=== PATIENT | female | born 1965 | race Caucasian/White ===

== ENCOUNTER → 2019-12-12 11:22 | Outpatient (CLI) | payer SELFPAY | PROVIDERS: Referring Provider Family Medicine; Visit Provider Family Medicine | DX: Z20.828 Contact with and (suspected) exposure to other viral communicable diseases (principal) | CPT/HCPCS: 87635; U0003 ==

== ENCOUNTER 2022-05-06 11:49 | Emergency (ER) | payer OTHER, SELFPAY ==
[2022-05-06 11:51] VITALS: BP 122/82; PULSE 104; RESP 18; TEMP 36.6; O2SAT 98
[2022-05-06 11:52] VITALS: BMI 32.3
[2022-05-06 12:29] VITALS: O2SAT 97
--- NOTE | 2022-05-06 12:29 | CT_ITS ---
STUDY: CTA CHEST REASON FOR EXAM: Female, 56 years old. Diffuse pleuritic CP, cancer RADIATION DOSAGE (If Supplied By Facility): CTDIvol = ( 9.33 ) mGy, DLP = ( 330.92 ) mGycm TECHNIQUE: The examination was performed with the intravenous administration of IV 100mL Isovue-370. Post-processing of the angiographic images was performed, with multiplanar reformation and 3D reconstruction. Individualized dose optimization techniques were used for this CT. COMPARISON: None. FINDINGS: Small benign-appearing bilateral axillary lymph nodes. Mildly diffusely enlarged left lobe of the thyroid gland with a hypodense nodule most likely representing goitrous enlargement. Level Normal enhancement of the main pulmonary artery and right and left pulmonary arteries. Normal enhancement of the bilateral peripheral pulmonary arteries. There is no demonstrated pulmonary embolism. There is atherosclerotic calcification of the aortic arch with tortuosity. There is no demonstrated aortic dissection. There are calcifications of the coronary arteries. Normal mediastinum. Normal hilar regions. Normal visualized trachea and bronchi. The lungs are well expanded. Mild degree of increased markings at the lung bases suggestive of mild bibasilar scarring . Normal pleura. Normal chest wall structures. There are degenerative changes of thoracic spine. There is a 2.8 cm x 2.4 cm mass in the left adrenal gland. CT/CTA Chest W/WO Contrast IMPRESSION: Mild degree of bibasilar scarring. 2.8 cm x 2.4 cm mass in the left adrenal gland. Electronically Signed: Piotr Sexton MD at 14:36 EST ,
--- NOTE | 2022-05-06 12:29 | EKG12_ITS ---
Test Reason : CP Blood Pressure : / mmHG Vent. Rate : 094 BPM Atrial Rate : 094 BPM P-R Int : 182 ms QRS Dur : 076 ms QT Int : 318 ms P-R-T Axes : 060 022 047 degrees QTc Int : 397 ms Normal sinus rhythm with sinus arrhythmia Normal ECG Confirmed by MATHIEU CONWAY, ALO ([id number]), scientific editor BINDU KRUGER ([id number]) on 05/08/2022 9:43:59 AM Referred By: ADELITA/MIRELA Confirmed By:ALO MURDOCK MD
--- NOTE | 2022-05-06 12:32 | EDS_ITS ---
HPI History of Present Illness Chief Complaint: Chest Pain Informant: patient and spouse/S.O. Onset/Context/Timing Onset: Today (0200, 10 hrs ago) Activity at onset: activity on onset and sleep Timing: Continuous Quality: Positive for Pain (sore) Location: - (Throughout ribs, front and back) Current Severity: Moderate Maximum Severity: Severe Worsened By: Movement of Arm, Movement of Torso and Breathing Relieved By: Rest and Remaining Still Associated Symptoms: Positive for Nausea and Dyspnea (A little because it hurts to breathe and is very painful when she moves); Negative for Vomiting, Cough, Fever, Lightheadedness or Palpitations Narrative Narrative: Patient recently had breast cancer that was localized, she had a lumpectomy, she is in a study and was just given her first infusion of Zometa yesterday afternoon. She woke up this morning and pain all over but mostly in the ribs, front and back. It hurts to breathe, this is making her feel little short of breath. Patient has never had a DVT or PE before, she has no pain or swelling in either one of her legs right now unilaterally or asymmetrically, and is not anticoagulated for any reason. I did speak with her oncologist Dr. Zavaleta concerning all of this who is an additional independent historian. [facility] Medical History (Updated 05/06/22 @ 14:[address] Bandar Flanagan MD) Breast cancer Home Medications omeprazole 20 mg tablet,delayed release 20 mg PO DAILY ##14 03/11/16 [Rx Last Taken Unknown] ondansetron 4 mg disintegrating tablet 4 - 8 mg PO Q8H PRN PRN Nausea #12 tabs 03/11/16 [Rx Last Taken Unknown] bupropion HCl 150 mg tablet,12 hr sustained-release 150 mg PO BID 05/06/22 [History Last Taken Unknown] cyclobenzaprine 10 mg tablet 10 mg PO TID PRN Spasms 05/06/22 [History Last Taken Unknown] exemestane 25 mg tablet (Aromasin) 25 mg PO DAILY 05/06/22 [History Last Taken Unknown] fluticasone propionate 50 mcg/actuation nasal spray,suspension 2 spray intranasal DAILY 05/06/22 [History Last Taken Unknown] meloxicam 15 mg tablet 15 mg PO DAILY 05/06/22 [History Last Taken Unknown] oxycodone-acetaminophen 5 mg-325 mg tablet 1 tab PO Q6H PRN PRN Pain 4 days #16 TABLETS 05/06/22 [Rx Last Taken Unknown] Allergy/AdvReac Type Severity Reaction Status Date / Time No Known Allergies Allergy Verified 05/06/22 11:52 Social History Smoking Status: Former smoker ROS ROS ED Constitutional Constitutional ED: Denies chills or fever(s) Eyes Eyes: Denies change in vision or diplopia ENT ENT ED: Denies rhinorrhea or sore throat Cardiovascular Cardiovascular: Reports as per HPI and chest pain; Denies palpitations Respiratory/Chest Respiratory/Chest: Reports as per HPI and dyspnea; Denies cough Gastrointestinal Gastrointestinal: Reports nausea; Denies abdominal pain, diarrhea or vomiting Genitourinary Genitourinary ED: Denies dysuria or hematuria Musculoskeletal Musculoskeletal: Reports back pain and extremity pain; Denies neck pain Integumentary Denies abscess or rash Neurologic Neurologic: Denies headache(s), paresthesias or weakness Psychiatric Psychiatric: Denies anxiety or suicidal thoughts EXAM Physical Exam Const Vital Signs: 05/06/22 11:51 05/06/22 12:18 05/06/22 12:29 Temperature 97.8 F Temperature Source Temporal Pulse Rate 104 H Respiratory Rate 18 Respiratory Effort Normal Non-Labored Respiratory Pattern Normal Blood Pressure 122/82 H Blood Pressure Mean 95 Pulse Ox 98 97 Oxygen Delivery Method Room Air Room Air 05/06/22 13:00 05/06/22 14:00 Temperature Temperature Source Pulse Rate 101 H 99 Respiratory Rate 20 H 18 Respiratory Effort Respiratory Pattern Blood Pressure 112/76 116/74 Blood Pressure Mean 88 88 Pulse Ox 98 100 Oxygen Delivery Method Room Air Room Air Positive well nourished and well developed General Appearance ED: well developed and NAD HEENT Reports moist mucous membranes normocephalic and atraumatic Eyes PERRL and EOMs intact bilaterally Neck full ROM and supple Chest Wall inspection of chest normal Chest Narrative: Diffuse chest wall tenderness all the way around her trunk without any crepitance, step-off, or unequal breath sounds. Patient is in more pain to move. Resp normal respiratory effort and clear to auscultation bilaterally Cardio regular rate, regular rhythm and no murmurs Rate: other Other Details: Mild tachycardia GI non-tender and non-distended Auscultation: normoactive bowel sounds Palpation: soft Back/Spine no CVA tenderness General Back: other FROM Extremity normal to inspection and no calf tenderness General Extremety ED: Negative for edema, pulses abnormal or tenderness General Extremity: Negative for edema or pulses abnormal Neuro oriented x3, CN's II-XII intact bilaterally and no sensory deficits noted Sensorium / Orientation: awake and alert Motor Exam: strength 5/5 throughout Skin no rashes or lesions noted and no wounds MDM MDM MDM Narrative Medical decision making narrative: CT angiography of the chest was obtained since patient has a high Wells score, making D-dimer basically pointless to obtain. My interpretation of the CT agrees with that of the radiologist. Basically negative for pulmonary embolus, the main reason she was sent for this test. While we were awaiting testing results she was treated with IV fluids, Zofran, morphine. She did feel better. I discussed with her oncologist Dr. Zavaleta. I am happy to prescribe her some analgesics to use as needed for this pain which I now suspect is related to the dose of Zometa she recently had yesterday, and have her follow-up as an outpatient. She is comfortable with that plan. Wells' Criteria for Pulmonary Embolism from [email or web address] on 05/06/2022 All calculations should be rechecked by clinician prior to use RESULT SUMMARY: 2.5 points Moderate risk group: 16.2% chance of PE in an ED population. Another study assigned scores <=4 as ?PE Unlikely? and had a 3% incidence of PE. INPUTS: Clinical signs and symptoms of DVT ?> 0 = No PE is #1 diagnosis OR equally likely ?> 0 = No Heart rate > 100 ?> 1.5 = Yes Immobilization at least 3 days OR surgery in the previous 4 weeks ?> 0 = No Previous, objectively diagnosed PE or DVT ?> 0 = No Hemoptysis ?> 0 = No Malignancy w/ treatment within 6 months or palliative ?> 1 = Yes Lab Data Attestation: I reviewed the patient's lab results. Labs: Laboratory Results - last 24 hr 05/06/22 05/06/22 13:15 13:15 WBC 17.5 H RBC 3.78 L Hgb 11.2 L Hct 35.0 L MCV 92.6 MCH 29.6 MCHC 32.0 RDW Std Deviation 43.4 RDW Coeff of Stevie 12.8 Plt Count 369 MPV 9.0 Immature Gran % (Auto) 0.600 Neut % (Auto) 95.6 H Lymph % (Auto) 1.9 L [place] % (Auto) 1.8 Eos % (Auto) 0.0 Baso % (Auto) 0.1 Absolute Neuts (auto) 16.7 H Absolute Lymphs (auto) 0.34 L Nucleated RBC % 0 Differential Comment SCANNED Sodium 142 Potassium 3.6 Chloride 109 H Carbon Dioxide 25.0 Anion Gap 8 BUN 19 H Creatinine 0.90 Estim Creat Clear Calc 65.34 Est GFR (MDRD) Af Amer 83 Est GFR (MDRD) Non-Af 69 BUN/Creatinine Ratio 21.1 H Glucose 129 H Calcium 8.3 L Troponin I High Sens 4 Radiography Diagnostic Testing: Clinical Impression(s) from Imaging Studies Chest CTA 05/06/22 12:29 IMPRESSION: Mild degree of bibasilar scarring. 2.8 cm x 2.4 cm mass in the left adrenal gland. Electronically Signed: Piotr Sexton MD at 14:36 EST , Rhythm Strip Rhythm Strip: Sinus Rhythm Rate: 95 Ectopy: None EKG Initial EKG: Attestation: I personally reviewed and interpreted this EKG as follows: Interpretation: Sinus Rhythm and No Acute Injury Pattern Discharge Plan Triage Chief Complaint: Chest Pain ED Provider: Bandar Flanagan Dx/Rx/DC Orders Clinical Impression: Medication side effect, Diffuse pain, Chest pain, Back pain Instructions: Zometa Injection 4 mg/5 mL, Taking Opioid Medicines Prescriptions: New oxycodone-acetaminophen [oxycodone-acetaminophen] 5-325 mg tablet 1 tab PO Q6H PRN PRN (Reason: Pain) 4 Days Qty: 16 0RF No Action omeprazole 20 MG tablet,delayed release (DR/EC) 20 mg PO DAILY Qty: 14 0RF ondansetron 4 MG tablet 4 - 8 mg PO Q8H PRN PRN (Reason: Nausea) Qty: 12 0RF cyclobenzaprine 10 mg tablet 10 mg PO TID PRN (Reason: Spasms) Label Comments: TAKE 1/2 TO 1 TABLET BY MOUTH 3 TIMES A DAY NEEDED FOR MUSCLE SPASMS Rx Instructions: 0.5-1 TAB bupropion HCl 150 mg tablet sustained-release 12 hr 150 mg PO BID Label Comments: TAKE 1 TABLET BY MOUTH TWICE A DAY meloxicam 15 mg tablet 15 mg PO DAILY Label Comments: TAKE 1 TABLET BY MOUTH EVERY DAY exemestane [Aromasin] 25 mg Tablet 25 mg PO DAILY fluticasone propionate [Flonase] 50 mcg/actuation [place],Suspension 2 spray INTRANASAL DAILY Primary Care Provider: Lu Riggins Referrals: Nahun Zavaleta DO [Med Staff - Active Staff] - (as directed, call office for info) Lu Riggins MD [Primary Care Provider] - Disposition Disposition: Home, Self Care
[2022-05-06] MEDS: 0.9% Normal Saline 1,000 ML 1000 ML IV (12:45)
[2022-05-06] MEDS: Ondansetron 4 MG/2 ML Vial IV (12:45)
[2022-05-06] MEDS: Morphine 4 MG/ML Syringe IV (12:45)
[2022-05-06 13:00] VITALS: BP 112/76; PULSE 101; RESP 20; O2SAT 98
[2022-05-06 13:28] LABS: Absolute Lymphocyte Count 0.34 X10^3/uL (0.83-4.51); Absolute Neutrophil Count 16.7 X10^3/uL (2.0-7.7); Basophil# 0.02 X10^3/uL; Basophil% 0.1 % (0-1); Hemoglobin 11.2 g/dL (12.0-15.0); Lymphocyte # 0.34 X10^3/ul (0.83-4.51); Lymphocyte % 1.9 % (19-41); Mean Corpuscular Hgb 29.6 pg (27.0-32.0); Mean Corpuscular Volume 92.6 fL (81-99); Monocyte# 0.31 X10^3/uL; Monocyte% 1.8 % (0-10); NRBC Flagged by Analyzer 0 % (0-5); Neutrophil # 16.71 X10^3/uL (2.7-7.7); Neutrophil % 95.6 % (47-70); POSITIVE DIFFERENTIAL YES; Platelet Count 369 K/mm3 (150-450); RBC Distribution Width CV 12.8 % (11.6-14.6); RBC Distribution Width SD 43.4 fl (35.1-43.9); Red Blood Count 3.78 M/mm3 (4.2-5.4); White Blood Count 17.5 K/mm3 (4.4-11.0)
[2022-05-06 13:30] LABS: Differential Indicated SCAN CRITERIA MET
[2022-05-06 13:40] LABS: Anion Gap 8 (5-15); BUN 19 mg/dL (7-18); BUN/Creat Ratio 21.1 RATIO (10-20); Calcium,Total 8.3 mg/dL (8.5-10.1); Chloride 109 mmol/L (98-107); EST Glomerular Filtration Rate 69 mL/min (>60); Est Glom Filt Rate - Afr Amer 83 mL/min (>60); Estimated Creatinine Clearance 65.34 ml/min; Glucose 129 mg/dL (74-106); Potassium 3.6 mmol/L (3.5-5.1); Sodium Level 142 mmol/L (136-145); Troponin-I HS 4 pg/mL (3.0-54.0)
[2022-05-06 13:48] LABS: Differential Comment SCANNED
[2022-05-06 14:00] VITALS: BP 116/74; PULSE 99; RESP 18; O2SAT 100
[2022-05-06 14:55] VITALS: BP 124/74; PULSE 104; RESP 17; TEMP 36.7; O2SAT 97
[2022-05-06 15:00] VITALS: BP 113/72; PULSE 103; RESP 16; O2SAT 99
== END 2022-05-06 15:08 | disposition home or self-care (01) ==
PROVIDERS: Emergency Provider Emergency Medicine; PCP Internal Medicine; Visit Provider Emergency Medicine
DX: T50.995A Adverse effect of other drugs, medicaments and biological substances, initial encounter (principal); R07.9 Chest pain, unspecified; M54.9 Dorsalgia, unspecified; Z87.891 Personal history of nicotine dependence; Z79.899 Other long term (current) drug therapy
CPT/HCPCS: 71275; 80048; 84484; 85025; 93005; 96361; 96374; 96375; 99284; J7030; Q9967; A4216; J2405

== ENCOUNTER → 2022-08-26 | Outpatient (CLI) | payer OTHER, SELFPAY ==
--- NOTE | 2022-08-26 | FLU_PTH ---
PAT[facility]CA [id number] AGE/SX: 57/F ROOM: RE08/26/[address]: Dr. Quinton Myers MD : 1965 BED: DIS: 08/26/2022 SPEC #: [id number] RECD: 08/26/22 17:02 STATUS: SOLITARIO JESENIA #: [id number] LEROY: 08/26/22 00:[address]: Quinton Myers DEPT: CYTOLOGY RECD BY: Mk Shen ENTERED: 08/27/22 09:05 SP TYPE: Fluid OTHR DR: Lu Riggins MD Tissues: A - Thyroid gland, NOS B - Thyroid gland, NOS Procedures: Special Stain Group II Surgery Specimen Level IV Cytospin Fluid HEADER OPERATION: Fine needle aspiration left thyroid PRE-OP DIAGNOSIS: Multinodular goiter TISSUE SUBMITTED: A - FNA left thyroid fluid, B - FNA left thyroid x12 slides DIAGNOSIS CYTOLOGY A. Fine needle aspiration, left thyroid nodule fluid (cytospin and cell block): Benign, consistent with benign follicular/colloid nodule ([place] Category II). See comment. B. Fine needle aspiration, left thyroid nodule (smears): Benign, consistent with benign follicular/colloid nodule ([place] Category II). See comment. AM:francisco 08/28/2022 COMMENT A & B. The specimen is adequate for evaluation. The [place] System for thyroid diagnostic categorization was used in the evaluation of this case. CYTOLOGY STUDY Slides are reviewed. CYTOLOGY GROSS A. Received is 30 ml of brown cloudy fluid labeled with the patient's name and and designated per the requisition as left thyroid. Submitted for cytology preparation including cell block. B - Received are 12 smears labeled with the patient's name and designated per the requisition as left thyroid. Submitted for staining. / francisco 08/27/2022 TC:5 CPT: 29430 x2, 39274
== END | disposition home or self-care (01) ==
PROVIDERS: PCP Internal Medicine; Visit Provider Surgery
DX: E04.2 Nontoxic multinodular goiter (principal)
CPT/HCPCS: 88108; 88305; 88313

== ENCOUNTER → 2023-05-22 | Outpatient (CLI) | payer OTHER, SELFPAY ==
--- NOTE | 2023-05-22 16:05 | CT_ITS ---
STUDY: CT ABDOMEN AND PELVIS WITH CONTRAST REASON FOR EXAM: Female, 57 years old. HERNIA WITH GERD/INTESTINAL OBSTRUCTION RADIATION DOSAGE (If Supplied By Facility): CTDIvol = ( 17.31 ) mGy, DLP = ( 1043.04 ) mGycm TECHNIQUE: Transaxial images were obtained from the dome of the diaphragm to the symphysis pubis with oral contrast. Oral and amp; IV Gastrografin and amp; 100mL Isovue-370 was administered. Sagittal and coronal images were reconstructed. Individualized dose optimization techniques were used for this CT. COMPARISON: None. FINDINGS: The visualized lung bases are unremarkable. The visualized portions of the heart are within normal limits. Normal liver. Normal gallbladder and extrahepatic biliary system. Normal spleen. Normal pancreas. There is a small, circumscribed, smooth, low attenuation left adrenal mass, consistent with an adrenal adenoma. Normal right adrenal gland. Normal right kidney. Normal left kidney. There is a small hiatal hernia. Small diverticulum of the second portion of duodenum. Normal colon. The appendix is visualized and appears normal. Normal abdominal aorta. Normal inferior vena cava. Normal retroperitoneum. Normal urinary bladder. Normal abdominal wall. Mild levoscoliosis lumbar spine. CT/Abdomen/Pelvis WITH Contrast IMPRESSION: 1. No bowel obstruction. 2. Small hiatal hernia. Electronically Signed: Moisse Wall MD at 20:12 EDT ,
== END | disposition home or self-care (01) ==
PROVIDERS: PCP Internal Medicine
DX: K44.9 Diaphragmatic hernia without obstruction or gangrene (principal); K56.699 Other intestinal obstruction unspecified as to partial versus complete obstruction; C50.211 Malignant neoplasm of upper-inner quadrant of right female breast; Z17.0 Estrogen receptor positive status [ER+]; K21.9 Gastro-esophageal reflux disease without esophagitis; R11.0 Nausea
CPT/HCPCS: 74177; Q9967

== ENCOUNTER → 2024-08-12 | Outpatient (CLI) | payer OTHER, SELFPAY ==
--- NOTE | 2024-08-12 10:51 | US_ITS ---
PROCEDURE: ABDOMEN LIMITED 08/12/2024 REASON FOR EXAM: EPIGASTRIC FULLNESS, BLOATING COMPARISON: CT abdomen and pelvis on 05/22/2023 FINDINGS: Liver: Mildly enlarged measuring 17.7 cm longitudinally. Increased echogenicity relative to the right kidney. There is a round hypoechoic lesion in the left hepatic lobe measuring 1.2 x 1.3 x 1.6 cm, without internal vascularity on color Doppler evaluation. Gallbladder: No stones, sludge, wall thickening, pericholecystic fluid, or tenderness. Common bile duct: Normal measuring 3 mm. Pancreas: Visualized portions are sonographically unremarkable. Other: Visualized portions of the right kidney are unremarkable. No right upper quadrant ascites. US/Abdomen Limited IMPRESSION: 1. Hypoechoic lesion in the left hepatic lobe measuring 1.6 cm. Recommend mul tipse liver CT or MRI for further characterization. 2. Hepatic steatosis and hepatomegaly. Reading Location: [id number]
== END | disposition home or self-care (01) ==
LOC: US 10:47
PROVIDERS: PCP Internal Medicine; Referring Provider Nurse Practitioner Acute Care; Visit Provider Nurse Practitioner Acute Care
DX: R14.0 Abdominal distension (gaseous) (principal)
CPT/HCPCS: 76705

== ENCOUNTER → 2024-08-25 | Outpatient (CLI) | payer OTHER, SELFPAY ==
--- NOTE | 2024-08-25 13:13 | MRI_ITS ---
PROCEDURE: MRI ABD WITH AND W/O CONTRAST 08/25/2024 REASON FOR EXAM: LIVER LESION Abnormal CT exam from August 12, 2024 TECHNIQUE: MRI ABD WITH AND W/O CONTRAST Multiplanar and multisequence images were obtained. CONTRAST: Clariscan VOLUME: 13mL COMPARISON: Ultrasound abdomen limited from August 12, 2024. CT abdomen of May 22, 2023 FINDINGS: The liver is unremarkable. No liver cysts. No solid liver lesions. No abnormal signal. No abnormal enhancement. Biliary system is unremarkable. The pancreas, spleen, right adrenal glands and kidneys are unremarkable. No abnormal enhancement and otherwise normal signal. There is a 2.3 cm left adrenal nodule which shows marked signal drop-off on out of phase imaging indicating a benign adenoma. Peritoneum / Retroperitoneum: No free air or free fluid. Lymph Nodes: No adenopathy. Major Vessels: Unremarkable. Bones: No acute or aggressive process. L4-L5 extrusion. MRI/MRI Abd WITH and W/O Contrast IMPRESSION: Negative exam. No liver abnormalities are identified. There is no imaging cor relate for the ultrasound detected liver lesion. Benign left adrenal adenoma. Reading [id number]
== END | disposition home or self-care (01) ==
LOC: MRI 13:07
PROVIDERS: PCP Internal Medicine; Referring Provider Nurse Practitioner Acute Care; Visit Provider Nurse Practitioner Acute Care
DX: K76.9 Liver disease, unspecified (principal); R19.06 Epigastric swelling, mass or lump; Z85.3 Personal history of malignant neoplasm of breast
CPT/HCPCS: 74183; A9575; A4216

== ENCOUNTER 2024-09-30 05:32 | Day surgery (SDC) | payer OTHER, SELFPAY ==
[2024-09-30] VITALS (8 sets, daily range): BP systolic 100–135; BP diastolic 65–79; PULSE 62–77; RESP 16–18; TEMP 36.3–36.4; O2SAT 96–100; BMI 34.4
--- OUTSIDE RECORDS SUMMARY | 2024-09-30 05:46 | XMS RPT_ITS | CCD ---
Author Organization [facility] Care Team Providers Care Publication Distributor Name Role Phone Akira Pierre MD Primary Care Provider Jose E Bettencourt MD Unavailable Akira Pierre MD Primary Care Provider Jose E Bettencourt MD Unavailable Carson CONWAY MD, Marilynung Unavailable Akira Pierre MD Primary Care Provider Jose E Bettencourt MD Unavailable Carson CONWAY MD, Davictor hugoung Unavailable Nahun Zavaleta DO Unavailable TALAMPDILAN, AKIRA D Primary Care Unavailable SERHAL, PATRICE Referring Unavailable SERHAL, PATRICE Referring Unavailable TALAMPAS, AKIRA D Primary Care Unavailable SERHAL, PATRICE Referring Unavailable TALAMPAS, AKIRA D Primary Care Unavailable Carson CONWAY, Gladis Unavailable YANNIAMPDILAN, AKIRA D Primary Care Unavailable LANDY SCHNEIDER Attending Unavailable LANDY SCHNEIDER Admitting Unavailable Akira Pierre MD Primary Care Provider Matias PRIVATE TUTOR.TRACK PRODUCTION ENGINEER, Celeste Unavailable Zoë PRIVATE TUTOR.BANK ANALYST, Kimber Unavailable Zoë PRIVATE TUTOR.BANK ANALYST, Kimber Unavailable STEPHANIE CRAWFORD Attending Unavailable STEPHANIE CRAWFORD Referring Unavailable TALAMPAS, AKIRA D Primary Care Unavailable LANDY SCHNEIDER Attending Unavailable NAHUN ZAVALETA Referring Unavailable TALAMPAS, AKIRA D Primary Care Unavailable LANDY SCHNEIDER Attending Unavailable TALAMPAS, AKIRA D Primary Care Unavailable SERHAL, PATRICE Referring Unavailable TALAMPAS, AKIRA D Primary Care Unavailable NAHUN ZAVALETA Attending Unavailable TALAMPAS, AKIRA D Primary Care Unavailable STEPHANIE CRAWFORD Attending Unavailable TALAMPAS, AKIRA D Primary Care Unavailable TALAMPAS, AKIRA D Primary Care Unavailable TALAMPAS, AKIRA D Attending Unavailable JOSSE, STEPHANIE Referring Unavailable TALAMPAS, AKIRA D Primary Care Unavailable Zoë PRIVATE TUTOR.BANK ANALYST, Kimber Unavailable Vaishnavi CONWAY, Dr. Akira Chapman Primary Care Provider Dr. Akira Pierre MD Referring Provider Kumar TAVERN OPERATOR-C, Maria De Jesus Attending Provider Kumar TAVERN OPERATOR-C, Maria De Jesus Referring Provider Maria De Jesus Heath Attending Unavailable KumarMaria De Jesus Referring Unavailable Talampas, Akira D Primary Care Unavailable Assessment, Health Risk Attending Unavaila ble Assessment, Health Risk Referring Unavaila ble Talampas, Akira D Primary Care Unavailable Talampas, Akira D Referring Unavailable Manuelito Ricks Attending Unavailable Talampas, Akira D Primary Care Unavailable Talampas, Akira D Referring Unavailable Maria De Jesus Heath Attending Unavailable Talampas, Akira D Primary Care Unavailable Maria De Jesus Heath Attending Unavailable KumarMaria De Jesus parham Referring Unavailable Talampas, Akira D Primary Care Unavailable Allergies Allergy Classification Reported Allergen(s) Allergy Type Date of Onset Reaction(s) Facility zoledronic acid (1 source) zoledronic acid Drug Allergy 3 Other: See Comments [facility] (20 sources) zoledronic acid; Translations: [ZOLEDRONIC ACID] Drug Allergy 3 Other: See Comments [facility] (1 source) zoledronic acid Drug Allergy 5 [facility] Repository Medications Current Medications Medication Drug Class(es) Dates Sig (Normalized) Sig (Original) acetaminophen 325 mg / HYDROcodone bitartrate 5 mg oral tablet (5 sources) Opioid Agonist Start: 05-06-2022 take 1 tablet by mouth every four hours as needed for pain Hydrocodone-Aceta minophen 5-325 mg tablet Active 1 {tbl} PO EVERY 4 HOURS NEEDED as needed for Pain 12 3 May 06, 2022 Start: 05-06-2022 take 1 tablet by letitia th every four hours as needed Hydrocodone-Acetaminophen Active 1 TABLE T PO EVERY 4 HOURS NEEDED 12 May 06, 2022 acetaminophen 325 mg / oxyCODONE hydrochloride 5 mg oral tablet (7 sources) Opioid Agonist Start: 06-11-2023 End: 06-16-2023 take 1 tablet by mouth four times daily as needed for pain oxyCODONE-acetaminophen (PERCOCET) 5-325 mg tablet Indications: Ventral hernia without obstruction or gangrene Take 1 tablet by mouth four times a day as needed for pain for up to 5 days. FOR PAIN. 10 tablet 0 06/11/2023 06/16/2023 Active Start: 05-06-2022 take 1 tablet by letitia th every six hours as needed for pain Oxycodone-Acetaminophen 5-325 mg tablet Active 1 {tbl} PO EVERY 6 HOURS NEEDED as needed for Pain 16 May 06, 2022 Start: 05-06-2022 take 1 tablet by letitia th every six hours as needed Oxycodone-Acetaminophen Active 1 TABLET PO EVERY 6 HOURS NEEDED 22 06May 06, 2022 Comment on above: Take 1 tablet by letitia th four times a day as needed for pain for up to 5 days. FOR PAIN. cephalexin 500 mg oral capsule (2 sources) Cephalosporin Antibacterial Start: End: take 1 capsule by mouth three times daily cephALEXin (KEFLEX) 500 mg capsule Take 1 capsule by mouth three times daily for 10 days. 30 capsule 0 06/26/2021 07/06/2021 Active Comment on above: Take 1 capsule by mo [facility] three times daily for 10 days. cyclobenzaprine hydrochloride 10 mg oral tablet (20 sources) Muscle Relaxant Start: 023 take 0.5-1 tablets by mouth three times daily as needed for muscle spasms Cyclobenzaprine 10 mg tablet Active 10 mg PO THREE TIMES A DAY as needed for Spasms May 06, 2022 1:00am 0.5-1 TAB Start: 09-12-2019 End: 12-20-2021 take 0.5-1 tablets by mouth three times daily as needed for muscle spasms cyclobenzaprine (FLEXERIL) 10 mg tablet Indications: Back pain with radiation , Pelvic pain in female Take 0.5-1 tablets by mouth three times daily as needed for muscle spasm. 30 tablet 1 12/20/2021 Active Comment on above: Take 0.5-1 tablets b y mouth three times daily as needed for Muscle Spasm. enteric contrast (will be provided with radiology test) (1 source) Start: End: enteric contrast (will be provided with radiology test) Indications: Hiatal hernia with GERD , Other specified intestinal obstruction, unspecified whether partial or complete (HCC) , Nausea , Malignant neoplasm of 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, estrogen receptor positive (HCC) For CT ABD/PEL W IVCON Routine order Administer, As Directed One Time Only, via Oral, Rectal, both Oral and Rectal, Enteric Tube, Stoma or Indwelling Catheter, Enteric Contrast as designated per enteric contrast guidelines 1 Each 0 05/22/2023 05/23/2023 Active Comment on above: For CT ABD/PEL W IVC ON Routine order Administer, As Directed One Time Only, via Oral, Rectal, both Oral and Rectal, Enteric Tube, Stoma or Indwelling Catheter, Enteric Contrast as designated per enteric contrast guidelines exemestane 25 mg oral tablet (20 sources) Aromatase Inhibitor Start: 2 End: take 1 tablet by mouth once daily Exemestane (Aromasin) 25 mg Tablet Active 25 mg PO DAILY May 06, 2022 1:00am Comment on above: Take 1 tablet by letitia th once daily. TAKE 1 TABLET ONCE D AILY fluticasone propionate 0.05 mg/actuat metered dose nasal spray (20 sources) Corticosteroid Start: 3 Fluticasone Propionate (Flonase) 50 mcg/actuation Crock[place],Suspension Active 2 NMA INTRANASAL DAILY May 06, 2022 1:00am Start: 05-06-2022 Fluticasone Pr opionate (Flonase) 50 mcg/actuation Crockett,Suspension Active 2 SPRAY INTRANASAL DAILY May 06, 2022 1:00am Start: 07-12-2013 End: 01-12-2024 take 2 spray(s) by mouth once daily fluticasone (FLONASE) 50 mcg/actuation nasal spray Indications: Allergic rhinitis due to animal hair and dander Use 2 Sprays in each nostril once daily. Rinse mouth after use. 01/12/2024 Active Comment on above: Use 2 Sprays in each nostril once daily. Rinse mouth after use. iv contrast (will be provided with radiology test) (1 source) Start: 05-22-19 End: 05-23-19 iv contrast (will be provided with radiology test) Indications: Hiatal hernia with GERD , Other specified intestinal obstruction, unspecified whether partial or complete (HCC) , Nausea , Malignant neoplasm of 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, estrogen receptor positive (HCC) CT ABD/PEL -Inject, intravenously, once for 1 dose.No IV access, insert saline lock prior to the beginning of sedation, infusion, injection of imaging exam. Discontinue saline lock post exam. If Pt. has a central line or IVAD, may access for administration according to line specific nursing protocol. Once exam is complete flush line and de-access according to line specific nursing protocol in the CT contrast administration guidelines link. 1 Each 0 05/22/2023 05/23/2023 Active Comment on above: CT ABD/PEL -Inject, intravenously, once for 1 dose.No IV access, insert saline lock prior to the beginning of sedation, infusion, injection of imaging exam. Discontinue saline lock post exam. If Pt. has a central line or IVAD, may access for administration according to line specific nursing protocol. Once exam is complete flush line and de-access according to line specific nursing protocol in the CT contrast administration guidelines link. meloxicam 15 mg oral tablet (20 sources) Nonsteroidal Anti-inflammatory Drug Start: 06-08-19 End: 01-12-20 take 1 tablet by mouth once daily Meloxicam 15 mg tablet Active 15 mg PO DAILY May 06, 2022 1:00am Comment on above: Take 1 tablet by letitia th once daily. take 1 tablet by letitia th every day omeprazole 40 mg delayed release oral capsule (20 sources) Proton Pump Inhibitor Start: 08-11-19 Omeprazole 40 mg capsule,delayed release(DR/EC) Active 40 mg PO daily August 10, 2024 12:00am 30 minutes before first meal Start: 04-25-2024 End: 04-25-2024 take 1 capsule by mouth once daily omeprazole (PRILOSEC) 20 mg capsule Indications: Gastroesophageal reflux disease without esophagitis Take 1 capsule by mouth once daily. 90 capsule 3 04/25/2024 Active Start: 03-11-2016 End: 08-10-2024 take 1 tablet by mouth once daily Omeprazole 20 MG tablet,delayed release (DR/EC) Discontinued 20 mg PO DAILY March 11, 2016 1:00am August 10, 2024 5:05pm Comment on above: Take 20 mg by mouth once daily. ondansetron 4 mg disintegrating oral tablet (6 sources) Serotonin-3 Receptor Antagonist Start: 03-11-19 take 4-8 mg by mouth every eight hours as needed for nausea Ondansetron 4 MG tablet Active 4 - 8 mg PO EVERY 8 HOURS NEEDED as needed for Nausea March 11, 2016 1:00am 24 hr venlafaxine 150 mg extended release oral capsule (20 sources) Serotonin and Norepinephrine Reuptake Inhibitor Start: 08-12-19 take 1 capsule by mouth once daily in the morning Venlafaxine 150 mg capsule,extended release 24hr Active 150 mg PO EVERY MORNING August 11, 2024 12:00am Start: 05-13-2022 End: 06-05-2024 take 1 capsule by mouth once daily venlafaxine ER (EFFEXOR XR) 150 mg 24 hr capsule Take 1 capsule by mouth once daily. 90 capsule 3 06/05/2024 Active Comment on above: Take 1 capsule by [facility] once daily. TAKE 1 CAPSULE BY [facility] ONCE DAILY Completed/Discontinued Medications Medication Drug Class(es) Dates Sig (Normalized) Sig (Original) 12 hr buPROPion hydrochloride 150 mg extended release oral tablet (20 sources) Aminoketone Start: 06-02-2021 End: 08-11-2024 take 1 tablet by mouth twice daily Bupropion Hcl 150 mg tablet sustained-release 12 hr Discontinued 150 mg PO TWICE A DAY May 06, 2022 1:00am August 11, 2024 8:15am Start: 03-05-2021 End: 05-31-2021 buPROPion SR (WELLBUTRIN SR) 150 mg 12 hr tablet Indications: Perimenopausal symptoms Take 1 tablet by mouth twice daily. Take once daily for 3 days then increase to twice daily 180 tablet 0 03/05/2021 05/31/2021 Discontinued Comment on above: Take 1 tablet by [facility] twice daily. Take once daily for 3 days then increase to twice daily Take 1 tablet by letitia th twice daily. Calcium Carbonate / vitamin D3 (20 sources) Start: 03-09-2022 End: 05-23-2024 take 1 tablet by mouth once daily calcium carbonate/vitamin D3 (CALTRATE 600 + D ORAL) Take 1 tablet by mouth once daily. 03/09/2022 05/23/2024 Discontinued Start: 03-09-2022 take 1 tablet by letitia th once daily calcium carbonate/vitamin D3 (CALTRATE 600 + D ORAL) Take 1 tablet by mouth once daily. 03/09/2022 Active Start: 03-09-2022 take 1 tablet by letitia th once daily calcium carbonate/vitamin D3 (CALTRATE 600 + D ORAL) Take 1 tablet by mouth once daily. 0 03/09/2022 Active Start: 03-09-2022 calcium carbon ate/vitamin D3 (CALTRATE 600 + D ORAL) Comment on above: Take 1 tablet by letitia th once daily. dexamethasone 1 mg oral tablet (4 sources) Corticosteroid Start: 02-28-20 End: 05-22-19 24 dexAMETHasone (DECADRON) 1 mg tablet take one tab between 11 pm and midnight, followed by 8-9 am lab draw. 1 tablet 0 02/27/2023 05/22/2023 Discontinued (Course of therapy completed) Comment on above: take one tab between 11 pm and midnight, followed by 8-9 am lab draw. Lidocaine (1 source) Antiarrhythmic, Amide Local Anesthetic Start: 10-03-19 End: 10-03-19 22 NEEDED, Starting on Thu10/02/21 at 1432, Until Thu10/02/21 at 1432 MULTI-VITAMIN ORAL (20 sources) End: 05-24-19 25 take 1 tablet by mouth once daily MULTI-VITAMIN ORAL Take 1 tablet by mouth once daily. 05/23/2024 Discontinued take 1 tablet by mouth once dominique y MULTI-VITAMIN ORAL Take 1 tablet by mouth once daily. Active take 1 tablet by mouth once dominique y MULTI-VITAMIN ORAL Take 1 tablet by mouth once daily. 0 Active MULTI-VITAMIN OR AL Take by mouth once daily. 0 Active MULTI-VITAMIN OR AL Take by mouth. 0 Active Comment on above: Take by mouth. Take by mouth once d aily. Take 1 tablet by letitia th once daily. nabumetone 500 mg oral tablet (2 sources) Nonsteroidal Anti-inflammatory Drug Start: 2019 End: 2021 inject 30-30.9 tablets by subcutaneous injection twice daily as needed nabumetone (RELAFEN) 500 mg tablet Indications: Adult BMI 30.0-30.9 kg/sq m Take 1 tablet by mouth twice daily as needed. TAKE WITH FOOD 60 tablet 11 05/16/2019 06/07/2021 Discontinued (Lack of Efficacy) Comment on above: Take 1 tablet by [facility] twice daily as needed. TAKE WITH FOOD predniSONE 10 mg oral tablet (2 sources) Start: 2021 End: 2021 predniSONE (DELTASONE) 10 mg tablet Indications: Dermatitis due to plants, including poison clara, sumac, and oak Take 4 tabs daily x 3 days, then 3 tabs x 3 days, 2 tabs x 3 days, then 1 tab x3 days with food. 30 tablet 0 06/07/2021 06/19/2021 Comment on above: Take 4 tabs daily x 3 days, then 3 tabs x 3 days, 2 tabs x 3 days, then 1 tab x3 days with food. sulfamethoxazole 800 mg / trimethoprim 160 mg oral tablet (2 sources) Dihydrofolate Reductase Inhibitor Antibacterial, Sulfonamide Antimicrobial Start: 2021 End: 2021 take 1 tablet by mouth twice daily sulfamethoxazole-tr imethoprim (BACTRIM DS) 800-160 mg per tablet Indications: Cellulitis of female breast Take 1 tablet by mouth twice daily for 10 days. 20 tablet 0 06/18/2021 06/26/2021 Discontinued Comment on above: Take 1 tablet by [facility] twice daily for 10 days. triamcinolone acetonide 0.25 mg/ml topical cream (2 sources) Corticosteroid Start: 2020 End: 2021 triamcinolone (KENALOG) 0.025 % cream Indications: Dermatitis due to plants, including poison clara, sumac, and oak Apply 1 application to affected area twice daily. 30 g 0 07/26/2020 06/07/2021 Discontinued (Course of therapy completed) Comment on above: Apply 1 application to affected area twice daily. Problems Active Problems Problem Classification Problem Date Documented Da te Episodic/Chronic Allergic reactions (1 source) Contact dermatitis due to plants; Translations: [Unspecified contact dermatitis due to plants, except food] Episodic Cancer of breast (20 sources) Malignant neoplasm of upper-outer quadrant of female breast; Translations: [Malignant neoplasm of upper-outer quadrant of right female breast] Onset: 2 Chronic Cancer of breast (4 sources) History of malignant neoplasm of breast; Translations: [Personal history of malignant neoplasm of breast] Episodic Complications of surgical procedures or medical care (6 sources) Drug therapy finding; Translations: [Unspecified adverse effect of drug or medicament, initial encounter] 05-06-2022 Episodic Esophageal disorders (20 sources) Gastroesophageal reflux disease; Translations: [Gastro-esophageal reflux disease without esophagitis] Chronic Immunizations and screening for infectious disease (3 sources) Viral screening status; Translations: [Encounter for screening for other viral diseases] Episodic Intestinal obstruction without hernia (1 source) Intestinal obstruction; Translations: [Other intestinal obstruction unspecified as to partial versus complete obstruction] 05-22-2023 Episodic Malaise and fatigue (1 source) Fatigue; Translations: [Other fatigue] Episodic Menopausal disorders (2 sources) Menopause finding; Translations: [Menopausal and female climacteric states] Chronic Mood disorders (20 sources) Dysthymia; Translations: [Dysthymic disorder] Chronic Nausea and vomiting (1 source) Nausea; Translations: [Nausea] 05-22-2023 Episodic Neoplasms of unspecified nature or uncertain behavior (1 source) Neoplasm of uncertain behavior of skin of cheek; Translations: [Neoplasm of uncertain behavior of skin] Episodic Nonmalignant breast conditions (1 source) Cellulitis of breast; Translations: [Mastitis without abscess] Episodic Nonspecific chest pain (20 sources) Chest pain; Translations: [Other chest pain] Onset: 2 Episodic Nutritional deficiencies (2 sources) Vitamin D deficiency; Translations: [Vitamin D deficiency, unspecified] Chronic Other aftercare (3 sources) Long-term current use of drug therapy; Translations: [Other custodial (current) drug therapy] 11-24-2023 Episodic Other endocrine disorders (20 sources) Adrenal mass; Translations: [Other specified disorders of adrenal gland] Onset: 3 02-28-2023 Chronic Other gastrointestinal disorders (1 source) Constipation; Translations: [Constipation, unspecified] 01-06-2023 Episodic Other gastrointestinal disorders (4 sources) Epigastric fullness; Translations: [Epigastric swelling, mass or lump] 08-10-2024 Episodic Other gastrointestinal disorders (4 sources) Abdominal bloating; Translations: [Abdominal distension (gaseous)] 08-10-2024 Episodic Other gastrointestinal disorders (1 source) Abdominal distension (gaseous); Translations: [Abdominal distension (gaseous)] Onset: 5 Episodic Other gastrointestinal disorders (1 source) Epigastric swelling, mass or lump; Translations: [Epigastric swelling, mass or lump] Onset: 5 Episodic Other liver diseases (2 sources) Lesion of liver; Translations: [Liver disease, unspecified] 08-14-2024 Chronic Other liver diseases (1 source) Liver disease, unspecified; Translations: [Liver disease, unspecified] Onset: 5 Chronic Other nervous system disorders (1 source) Other chronic pain; Translations: [Chronic pain of both knees] Onset: 4 Chronic Other non-traumatic joint disorders (2 sources) Polyarthropathy; Translations: [Polyarthritis, unspecified] 01-12-2024 Chronic Other non-traumatic joint disorders (1 source) Polyarthritis, unspecified; Translations: [Polyarthritis] Onset: 4 Chronic Other non-traumatic joint disorders (8 sources) Bilateral pain of joint of hands; Translations: [Pain in joints of right hand] Episodic Other nutritional; endocrine; and metabolic disorders (20 sources) Obesity; Translations: [Obesity, unspecified] Chronic Other nutritional; endocrine; and metabolic disorders (20 sources) Obese class I; Translations: [Obesity, unspecified] Onset: 2 Chronic Other skin disorders (1 source) Eruption; Translations: [Rash and other nonspecific skin eruption] Episodic Other upper respiratory disease (1 source) Allergic rhinitis due to animal hair and dander; Translations: [Allergic rhinitis due to animal (cat) (dog) hair and dander] 01-12-2024 Chronic Other upper respiratory disease (1 source) Allergic rhinitis due to animal (cat) (dog) hair and dander; Translations: [Allergic rhinitis due to animal hair and dander] Onset: 4 Chronic Residual codes; unclassified (2 sources) Postmenopausal state; Translations: [Asymptomatic menopausal state] Episodic Residual codes; unclassified (1 source) Family history of cancer; Translations: [Family history of malignant neoplasm, unspecified] Episodic Residual codes; unclassified (1 source) Family history of cancer of colon; Translations: [Family history of malignant neoplasm of digestive organs] Episodic Residual codes; unclassified (6 sources) Diffuse pain; Translations: [Pain, unspecified] 05-06-2022 Episodic Residual codes; unclassified (1 source) Tobacco user; Translations: [Tobacco use] 01-12-2023 Episodic Skin and subcutaneous tissue infections (2 sources) Cellulitis of chest wall ; Translations: [Cellulitis of chest wall] Episodic Spondylosis; intervertebral disc disorders; other back problems (8 sources) Backache with radiation; Translations: [Dorsalgia, unspecified] Episodic Thyroid disorders (20 sources) Thyroid nodule; Translations: [Nontoxic single thyroid nodule] Onset: 4 07-22-2013 Chronic Unclassified (1 source) NO SHOW 01-29-2023 Past or Other Problems Problem Classification Problem Date Documented Date Episodic/Chronic Abdominal hernia (5 sources) Gastroesophageal reflux disease with hiatal hernia; Translations: [Diaphragmatic hernia without obstruction or gangrene] Onset: 06-02-2023 05-22-2023 Episodic Abdominal pain (5 sources) Pain in female pelvis; Translations: [Pelvic and perineal pain] Onset: 06-02-2023 Episodic Other aftercare (20 sources) Patient encounter status; Translations: [Other custodial (current) drug therapy] Onset: 09-27-2021 Episodic Other aftercare (1 source) Other custodial (current) drug therapy; Translations: [Encounter for long-term current use of medication] Onset: 01-12-2024 Episodic Other infections; including parasitic (20 sources) Personal history of other infectious and parasitic diseases; Translations: [History of COVID-19] Onset: 09-11-2021 Episodic Other non-traumatic joint disorders (20 sources) Hand joint pain; Translations: [Pain in joints of unspecified hand] Onset: 12-16-2011 03-04-2021 Episodic Other non-traumatic joint disorders (9 sources) Pain in right knee; Translations: [Pain in joint, lower leg] Onset: 01-12-2024 Episodic Other non-traumatic joint disorders (1 source) Pain in left knee; Translations: [Chronic pain of both knees] Onset: 01-12-2024 Episodic Other non-traumatic joint disorders (1 source) Pain in joints of right hand; Translations: [Arthralgia of hands, bilateral] Onset: 01-12-2024 Episodic Other non-traumatic joint disorders (1 source) Pain in joints of left hand; Translations: [Arthralgia of hands, bilateral] Onset: 01-12-2024 Episodic Other screening for suspected conditions (not mental disorders or infectious disease) (20 sources) Mammography abnormal; Translations: [Other abnormal and inconclusive findings on diagnostic imaging of breast] Onset: 07-11-2022 Episodic Other skin disorders (20 sources) Seborrheic keratosis; Translations: [Other seborrheic keratosis] Onset: 12-16-2011 03-04-2021 Episodic Residual codes; unclassified (20 sources) Family history of breast cancer; Translations: [Family history of malignant neoplasm of breast] Onset: 09-27-2021 Episodic Residual codes; unclassified (1 source) Estrogen receptor positive status [ER+]; Translations: [Malignant neoplasm of 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, estrogen receptor positive (HCC)] Onset: 09-27-2021 Episodic Screening and history of mental health and substance abuse codes (2 sources) Encounter for screening for depression; Translations: [Encounter for screening examination for other mental health and behavioral disorders] Onset: 01-12-2024 Episodic Substance-related disorders (20 sources) Smoker; Translations: [Nicotine dependence, unspecified, uncomplicated] Onset: 12-16-2011 Resolved: 10-02-2015 10-02-2015 Chronic Unclassified (2 sources) Patient encounter status 04-22-2024 Results Test Name Value Interpretation Reference Range Facility Magnetic resonance imaging r eportOrdered By: Benito Hutton on 08-27-2024 Study report [facility] Imaging Services [address] [place] [id number] MRI Abd WITH and W/O Contrast MR#: [id number] Acct: [id number] Name: REBECA WILSON Rep #: [id number] : 1965 F 59 From: Pet er Peer DO PCP: Dr. Akira Pierre MD Status: RE G CLI Study:MRI Abd WITH and W/O Contrast Date of E xam: 08/25/24 Exam# [id number] Ordering Dr: Maria De Jesus Heath PROCEDURE: MRI ABD WITH AND W/O CONTRAST 08/25/2024 REASON FOR EXAM: LIVER LESION Abnormal CT exam from August 12, 2024 TECHNIQUE: MRI ABD WITH AND W/O CONTRAST Multiplanar and multisequence images were obtained. CONTRAST: Clariscan VOLUME: 13mL COMPARISON: Ultrasound abdomen limited from August 12, 2024. CT abdomen of May 22, 2023 FINDINGS: The liver is unremarkable. No liver cysts. No solid liver lesions. No abnormal signal. No abnormal enhancement. Biliary system is unremarkable. The pancreas, spleen, right adrenal glands and kidneys are unremarkable. No abnormal enhancement and otherwise normal signal. There is a 2.3 cm left adrenal nodule which shows marked signal drop-off on out of phase imaging indicating a benign adenoma. Peritoneum / Retroperitoneum: No free air or free fluid. Lymph Nodes: No adenopathy. Major Vessels: Unremarkable. Bones: No acute or aggressive process. L4-L5 extrusion. MRI/MRI Abd WITH and W/O Contrast IMPRESSION: Negative exam. No liver abnormalities are identified. There is no imaging correlate for the ultrasound detected liver lesion. Benign left adrenal adenoma. Reading Location: [facility] CC: CAMPOS Heath; Dr. Akira Pierre MD ~ Fish Processing Supervisor: Signed [facility] MRI Abd WITH and W/O Contras ton 08-25-2024 MRI Abd WITH and W/O Contrast [facility] Imaging Services [address] [place] [id number] MRI Abd WITH and W/O Contrast MR#: [id number] Acct: [id number] Name: REBECA WILSON Rep #: [id number] : 1965 F 59 From: Benito Hutton DO PCP: Dr. Akira Pierre MD Status: DEP CLI Study: MRI Abd WITH and W/O Contrast Date of Exam: Exam# [id number] Ordering Dr: Maria De Jesus Heath ADDENDUM by Dr. Benito Hutton DO on 09/13/24 at 1932 For further clarification the contrast for the postcontrast images was 19 mL Clariscan IV. Reading Location: [facility] 09/13/241931 Date cc: CAMPOS Heath; Dr. Akira Pierre MD * Signed ADDENDUM by Dr. Benito Hutton DO on 09/01/24 at 1152 The technique slices is below TECHNIQUE: Addendum is created to address discrepancy in contrast dose MRI ABD WITH AND W/O CONTRAST Multiplanar and multisequence images were obtained. CONTRAST: Clariscan VOLUME: 19 becausemL Reading Location: [facility] 09/01/241152 Date cc: CAMPOS Heath; Dr. Akira Pierre MD * Signed PROCEDURE: MRI ABD WITH AND W/O CONTRAST 08/25/2024 REASON FOR EXAM: LIVER LESION Abnormal CT exam from August 12, 2024 TECHNIQUE: MRI ABD WITH AND W/O CONTRAST Multiplanar and multisequence images were obtained. CONTRAST: Clariscan VOLUME: 13mL COMPARISON: Ultrasound abdomen limited from August 12, 2024. CT abdomen of May 22, 2023 FINDINGS: The liver is unremarkable. No liver cysts. No solid liver lesions. No abnormal signal. No abnormal enhancement. Biliary system is unremarkable. The pancreas, spleen, right adrenal glands and kidneys are unremarkable. No abnormal enhancement and otherwise normal signal. There is a 2.3 cm left adrenal nodule which shows marked signal drop-off on out of phase imaging indicating a benign adenoma. Peritoneum / Retroperitoneum: No free air or free fluid. Lymph Nodes: No adenopathy. Major Vessels: Unremarkable. Bones: No acute or aggressive process. L4-L5 extrusion. MRI/MRI Abd WITH and W/O Contrast IMPRESSION: Negative exam. No liver abnormalities are identified. There is no imaging correlate for the ultrasound detected liver lesion. Benign left adrenal adenoma. Reading [facility] CC: CAMPOS Heath; Dr. Akira Pierre MD Fish Processing Supervisor: Signed Normal [facility] Abdomen Limitedon 08-12-2024 Abdomen Limited [facility] Imaging Services [address] [place] [address] Abdomen Limited MR#: [id number] Acct: [id number] Name: REBECA WILSON Rep #: [id number] : 1965 F 59 From: Paresh Goldberg MD PCP: Dr. Akira Pierre MD Status: REG CLI Study: Abdomen Limited Date of Exam: 08/12/24 Exam# [id number] Ordering Dr: Maria De Jesus Heath PROCEDURE: ABDOMEN LIMITED 08/12/2024 REASON FOR EXAM: EPIGASTRIC FULLNESS, BLOATING COMPARISON: CT abdomen and pelvis on 05/22/2023 FINDINGS: Liver: Mildly enlarged measuring 17.7 cm longitudinally. Increased echogenicity relative to the right kidney. There is a round hypoechoic lesion in the left hepatic lobe measuring 1.2 x 1.3 x 1.6 cm, without internal vascularity on color Doppler evaluation. Gallbladder: No stones, sludge, wall thickening, pericholecystic fluid, or tenderness. Common bile duct: Normal measuring 3 mm. Pancreas: Visualized portions are sonographically unremarkable. Other: Visualized portions of the right kidney are unremarkable. No right upper quadrant ascites. US/Abdomen Limited IMPRESSION: 1. Hypoechoic lesion in the left hepatic lobe measuring 1.6 cm. Recommend multiphase liver CT or MRI for further characterization. 2. Hepatic steatosis and hepatomegaly. Reading Location: [id number] CC: CAMPOS Heath; Dr. Akira Pierre MD Fish Processing Supervisor: Signed Normal [facility] Gastroenterology Visit Repor ton 08-10-2024 Gastroenterology Visit Report [facility] Gastroenterology [address] [place] [address] OFFICE VISIT Date of Service: 08/10/24 MR#: [id number] Acct: [id number] Name: REBECA WILSON Rep #: [id number] : 1965 Provider: CAMPOS solo Age/Sex: 59/F Location: [facility] Status: Signed Intake Vital Signs 05/06/22 11:51 Height 5 ft 6 in Intake Visit Reasons: NEW PATIENT Chief Complaint: GERD and constipation Allergies No Known Allergies Allergy (Verified 05/06/22 11:52) PFSH Medical History Breast cancer Social History Smoking Status: Former smoker HPI HPI Chief Complaint: GERD and constipation Details: REBECA WILSON, is a 59 F who presents to the office today for - GERD for many years and taking Omeprazole 20mg daily, this controls symptoms for the most part. At one time she was on PPI BID. - Life long constipation, reports I do not have time to go. Fearful of laxatives because she may become dependent. - Feels bloated and full in the upper abdomen. She has had 2 colonoscopies in the past. - Denies any family h/o colon CA. - Last colonoscopy 01/31/2020 - repeat in 5 years - Denies any bleeding or unexplained weight loss. - Reports her water intake is bad. Does not like meat, prefers fruits and vegetables, tries to get protein from like eggs. - She eats a pop-tart every morning for breakfast. - She does really enjoy eating ice cream but this causes bloating. - She has a bowel movement every 3-4 days, hard marble stools. - TSH level is normal. - Denies any bleeding. - She is taking Meloxicam daily for the past 10 years, she has never had an EGD. - In the past month she had an episode of bile reflux Exam Const General: cooperative, healthy appearing, no acute distress and well developed Nutritional Appearance: average body habitus and well nourished Orientation: alert and oriented x3 HENMT Head: normocephalic Ears: hearing grossly normal bilaterally Mouth: moist mucous membranes Teeth and gingiva: dentition normal Eyes Conjunctivae: conjunctivae normal Sclera: sclerae normal Neck Neck: normal visual inspection, full ROM and trachea midline Resp Effort Inspection: normal respiratory effort, able to speak in complete sentences and symmetric chest movement GI Inspection: normal to inspection Auscultation: normal bowel sounds Palpation: soft and no hepatosplenomegaly Rectal Exam: deferred Neuro General: patient alert and patient oriented x3 Cranial Nerves: other (CN's grossly intact, non-focal exam) Cognition: normal cognition Speech: speech normal Gait: normal gait Extrem General: normal to inspection (no edema noted) Psych Appearance: grossly normal and well kempt Affect: normal affect Attitude: cooperative Thought Process: normal Assessment and Plan Assessment and Plan (1) Bloating: Status: Acute (2) Epigastric fullness: Status: Acute Orders: Orders Abdomen Limited Today R14.0 - Abdominal distension (gaseous), R19.06 - Epigastric swelling, mass or lump Medications: New omeprazole 30 minutes before first meal 40 mg PO QDAY 90 caps 1RF Discontinued omeprazole Discontinued Reason: Order Changed 20 mg PO DAILY #14 0RF Plan 59y/o female presents for initial consultation with a history of chronic GERD and constipation. She denies any unexplained weight loss or bleeding. I have increased Omeprazole to 40mg once daily and she will schedule EGD. We have reviewed potential s/e of non-steroidal medications. In terms of constipation, she will trial Magnesium citrate gel caps 1-2 daily. We have discussed the importance of a balanced diet with increased water and fiber intake. She is due for a routine screening colonoscopy as well and will schedule. Note: Hello Music speech recognition headmaster/mistress software was used to create portions of this document. Sound-alike and misspelled words, as well as other headmaster/mistress errors may be contained in the documentation. Patient Instructions: ABD US - [phone] to schedule Magnesium Citrate gel caps 250mg take one every morning and a second dose in the evening if no bowel movement Linzess 290mcg once daily 30 minutes before first meal (samples), may use in place of Magnesium Citrate EGD/Colon - prep of patients choice - may provide sample Increase Omeprazole to 40mg once daily - Hospital pharmacy Increase water intake - goal of 64 ounces daily FiberOne cereal trail mix or FiberCon 2 tablets once daily with 8 ounces of water Coding Level of Care Code Off vis,new,level 3 Diagnoses Bloating R14.0 Epigastric fullness R19.06 Clinical Quality Measures Smoking Screening Smoking Status: Former smoker 08/10/24 (more content not included)... Normal [facility] CNNURSEon 05-23-2024 CNNURSE Nurse Visit (LEANDRO) REBECA WILSON ([id number]) 1965 F Date Time Provider Department 05/23/24 YENNY POSADAS During your visit today, we recorded the following information about you: Yenny Posadas RN 05/23/2024 10:45 AM Signed IRB# [id number] Title: [facility] [id number]: A Phase III Clinical Trial Evaluating De-Escalation of Breast Radiation for Conservative Treatment of Stage I, Hormone Sensitive, Her2-Negative, Oncotype Recurrence Score <= 18 Breast Cancer. Participant Information: Informed Consent Signed 11/18/2021 Registered: 11/18/2021 Randomization Date: 11/18/2021 Treatment Arm: HT - TA2 Study ID [id number] Consent to optional samples Yes Staging/Diagnosis pT1b pN0(sn) M0 ER/AR positive, HER2 negative stage IA Study Status Follow Up Current Treatment Plan: Treatment Dose Start Date Frequency End date exemestane (AROMASIN) 25/mg 11/25/2021 Daily Clinical Trial Specific Testing Test Dates Completed Due Date Mammogram Scan 04/22/202404/2025 Clinical Trial Draw 11/17/202211/2024 Year 3 QOLs 11/2023 QOLS were completed in aguilar via [employer] 11/2024 Baseline Weight 89.8 (11/15/2021) 95.7 Creatinine Clearance N/A Patient here today for 30 month post randomization visit. Patient expressed no new symptoms. Patients dry skin has resolved. Patient feeling much more herself still has some issues with her hot flashes, but not terrible. Patient states compliance with endocrine therapy. No missed doses. Patient ECOG 0/ KPS 100 Vitals: 05/23/24 08:35 Weight 95.7 kg (210 lb 15.7 oz) BSA 0 BMI 0 Temp 37.3 ?C (99.2 ?F) Resp 16 Pulse 82 BP 144/86 SpO2 96 % Current medications reviewed with patient as reported below: Current Outpatient Medications on File Prior to Visit Medication Sig Start/Stop Use [START ON 11/25/2021] exemestane (AROMASIN) 25 mg tablet Take 1 tablet by mouth once daily. Start:11/25/2021 endocrine therapy cyclobenzaprine (FLEXERIL) 10 mg tablet Take 0.5-1 tablets by mouth three times daily as needed for muscle spasm. Start: 11/15/2021 Stopped:12/07/2021 Start:03/09/2022 Muscle relaxer meloxicam (MOBIC) 15 mg tablet Take 1 tablet by mouth once daily. Start: 07/23/2021 Stopped:09/06/2021 Start:03/09/2022 Pain buPROPion SR (WELLBUTRIN SR) 150 mg 12 hr tablet Take 1 tablet by mouth twice daily. Start:07/07/2014 Stop:05/13/2022 Depression and Smoking Cessation omeprazole (PRILOSEC) 20 mg capsule Take 20 mg by mouth once daily. Start:2019 GERD MULTI-VITAMIN ORAL Take by mouth once daily. Start: >15 years Supplement fluticasone (FLONASE) 50 mcg/actuation nasal spray Use 2 Sprays in each nostril once daily. Rinse mouth after use. Start: 07/12/2013 Allergies Vanalafexine (EFFEXOR XR) 150 mg Take by mouth once daily. Start:05/14/2022 Depression Citracal with vitamin D Take by mouth once daily. Start:02/13/2022 Supplement No current facility-administered medications on file prior to visit. Baseline Toxicities per CTCAE v. 5: All predate therapy, are chronic conditions and will not be actively followed unless they worsen during the clinical trial. Pain; Other; bilateral knees: Grade 1 Start date:PRIOR TO STUDY Unrelated to study drug - Resolved: No Treatment: Meloxicam Outcome: Continue to monitor Action Required: Not at this time Dry Mouth Grade 1 Start date:PRIOR TO STUDY - Unrelated to study drug - Resolved: No Treatment: No Outcome: Continue to monitor Action Required: Not at this time Bloating - Grade 1 - Start date:PRIOR TO STUDY -reported 11/24/2023 Unrelated to study drug - Hernia Repair Treatment: No. Outcome: Ongoing Action Required: None Resolved: No Constipation - Grade 1 - Start date:PRIOR TO STUDY -reported 11/24/2023 Unrelated to study drug - Hernia Repair Treatment: No. Outcome: Ongoing Action Required: None Resolved: No Toxicities per CTCAE v. 5 Hypertension; Grade 2 Start date:02/12/2022 Increased:05/23/2024 Unrelated to study drug - Resolved: No Treatment: No Outcome: Continue to monitor Action Required: Not at this time Hot Flashes; Grade 1 Start date:02/12/2022 Related to study drug - Resolved: No Treatment: No Outcome: Continue to monitor - but improving since Effexor was added on Action Required: Not at this time Edema Limbs; Right Arm Grade 1 Start date:05/06/2022 Related to Zometa Treatment: No. Outcome: Continue monitoring Action Required: No.Resolved: No Patient meets all Criteria for Study Participation: Yes Patient knows to RTC in 6 months for follow-up visit. Patient knows to call in the interim for any questions or concerns. Patient has contact information for Yenny Posadas Research Nurse and Dr. Byrd and , along with the 24 hour On-Call number for the On-Call Oncology Fellow ([phone]). JEREMY BondN, RN Clinical Research Nurse [phone] Allergies As of Date: 05/23/2024 Note (more content not included)... Normal [facility] CNOVSPon 05-23-2024 CNOVSP Visit (SP) Office (LEANDRO) REBECA WILSON ([id number]) 1965 F Date Time Provider Department 05/23/24 8:30 AM STEPHANIE CRAWFORD During your visit today, we recorded the following information about you: Temperature Pulse Blood pressure Weight 99.2 degrees 82/minute 144/86 95.7 kg Stephanie Crawford PRIVATE TUTORNORMA 05/24/2024 12:22 PM Signed Chief Complaint Patient presents with: Established Patient HPI: Rebeca Wilson is a 58 year old female who presents here today for follow up breast cancer. Per Dr. Zavaleta's previous note: H/o GERD, multinodular goiter, seborrheic keratosis, arthralgia of the hands, prior COVID-19 infection, obesity and recent diagnosis of invasive ductal carcinoma of the right breast. She developed an abrasion of the right upper breast along where a new bra strap clasp had rubbed it. She was evaluated by Dr. Johnson who noted an approximate 6 to 7 x 5 cm area of dense induration/erythema of the right breast upper chest wall. It felt fibrous without fluctuance. The skin was excoriated for about 1 to 1-1/2 cm with white fibrous tissue noted. Patient underwent diagnostic mammogram on 07/17/2021. There was a 6 x 5 x 5 mm oval mass with a circumscribed margin in the right breast at 1:00 posterior depth 3 cm from the nipple. It appeared hypoechoic with internal echoes on ultrasound and it correlated with the mammogram findings. There was slight thickening of the single axillary lymph node of 4 mm. Patient underwent an ultrasound-guided core needle biopsy on 08/20/2021. Pathology: Invasive mammary carcinoma, provisional histologic grade 2. ER +91 to 100%, strong staining intensity. AR positive, 81 to 90%, strong staining intensity HER2 negative, 1+ on IHC. Patient underwent a right breast GREGORY Public Relations Supervisor localized lumpectomy, right sentinel lymph node mapping and biopsy on 10/07/2021. Pathology: A. Right axilla, sentinel lymph nodes, excision: -Two lymph nodes, negative for metastatic carcinoma (0/2), (please see comment). B. Right breast, lumpectomy: - Invasive mammary carcinoma with mixed ductal and lobular features, [place] grade 2, measuring 7 mm in greatest dimension, (please see comment and synoptic report). 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 Right breast, anterior margin, excision: - Unremarkable breast parenchyma D. Right breast, posterior margin, excision: - Unremarkable breast parenchyma E. Right breast, superior margin, excision: - Unremarkable breast parenchyma F. Right breast, inferior margin, excision: - Unremarkable breast parenchyma G. Right breast, medial margin, excision: - Unremarkable breast parenchyma H. Right breast, lateral margin, excision: - Intraductal papilloma with usual ductal hyperplasia Enrolled in IRB# [id number] Title: [facility] BR007: A Phase III Clinical Trial Evaluating De-Escalation of Breast Radiation for Conservative Treatment of Stage I, Hormone Sensitive, Her2-Negative, Oncotype Recurrence Score <= 18 Breast Cancer. Current therapy: 1) Exemestane No new concerns today. Appetite:It's too good. Wt. stable. Energy level:Good. Denies fevers or recent illness. Resp:denies cough or sob Cardiac:denies chest pain/palpitations GI:denies abd pain h/o HH repair, +reflux-takes prilosec, denies n/v, +constipation-takes senna :denies dysuria/hematuria Extrem:denies pain Endo:+hot flashes Come and go. They haven't been as bad recently. They do not wake pt. at night. Neuro:denies symptoms of neuropathy Skin:denies rashes Heme:denies bleeding The ROS is otherwise negative. Past medical history, appointments, medications, allergies reviewed. No changes. EXAM: BP 144/86 Pulse 82 Temp 37.3 ?C (99.2 ?F) (Temporal) Wt 95.7 kg (210 lb 15.7 oz) LMP 07/28/2015 (Exact Date) SpO2 96% BMI 34.31 kg/m? APPEARANCE Well appearing, alert, in no acute distress, well-hydrated, well nourished. HEART RRR with normal S1 and S2, no murmurs LUNG clear to auscultation BREAST FEMALE no mass/nodule b/l LYMPH NODES No cervical lymphadenopathy, No supraclavicular lymphadenopathy, and No axillary lymphadenopathy. ABDOMEN bowel sounds normoactive, soft, non-tender EXTREMITIES No edema NEURO Awake, alert and oriented x 3, Normal gait, and No involuntary motions. SKIN Skin color, texture, turgor normal, no suspicious rashes or lesions ASSESSMENT/PLAN: 1. Malignant neoplasm of 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, estrogen receptor positive (HCC) - ICD9: 174.2, V86.0, ICD10: C50.211, Z17.0 pT1b pN0(sn) M0 ER/AR positive, HER2 negative stage IA infiltrating ductal carcinoma of the right breast. Per Dr. Zavaleta's previous note: Assessment: -The patient is a 58-year- (more content not included)... Normal [facility] CNPNon 05-23-2024 CNPN Telephone (LEANDRO) REBECA WILSON ([id number]) 1965 F Date Time Provider Department 05/23/24 YENNY POSADAS During your visit today, we recorded the following information about you: Emely Chadwick 05/23/2024 11:24 AM Signed LVM for pt to call back and schedule lab appt before 11/25 appt. Stefany Peterson 05/23/2024 12:32 PM Signed Patient schedule lab for 11/21 Allergies As of Date: 05/23/2024 Noted Allergy Reaction ZOMETA (ZOLEDRONIC ACID) 05/13/2022 14 - Other: See Comments Comments: Joint tenderness AND soreness, difficulty breathing due to severe pain Date Reviewed: 05/23/2024 Reviewed by: Stephanie Crawford APRN.BANK ANALYST - Fully Assessed Prescriptions as of 05/23/2024 - omeprazole (PRILOSEC) 20 mg capsule Take 1 capsule by mouth once daily. - exemestane (AROMASIN) 25 mg tablet Take 1 tablet by mouth every afternoon. - meloxicam (MOBIC) 15 mg tablet Take 1 tablet by mouth once daily. - fluticasone (FLONASE) 50 mcg/actuation nasal spray Use 2 Sprays in each nostril once daily. Rinse mouth after use. - venlafaxine ER (EFFEXOR XR) 150 mg 24 hr capsule take 1 capsule by mouth once daily - cyclobenzaprine (FLEXERIL) 10 mg tablet Take 0.5-1 tablets by mouth three times daily as needed for muscle spasm. Problem List As Of Date 05/23/2024 Noted Resolved Seborrheic keratosis [L82.1] 12/16/2011 Smoker [F17.200] 12/16/2011 10/02/2015 Arthralgia of hands [M25.549] 12/16/2011 Thyroid nodule [E04.1] 07/22/2013 Nontoxic multinodular goiter [E04.2] 08/03/2013 Screening mammogram, encounter for [Z12.31] 09/27/2021 Malignant neoplasm of upper-inner quadrant of r*09/27/2021 Family history of breast cancer [Z80.3] 09/27/2021 Invasive ductal carcinoma of breast, right (HCC*10/04/2021 History of COVID-19 [Z86.16] 09/11/2021 GERD (gastroesophageal reflux disease) [K21.9] Mood disorder (HCC) [F39] Obese [E66.9] Obesity, Class I, BMI 30-34.9 [E66.811] 10/07/2021 Other chest pain [R07.89] 11/07/2021 Low TSH level [R79.89] 07/11/2022 Adrenal nodule (HCC) [E27.9] 02/28/2023 Encounter Status:Closed by YENNY POSADAS on 05/23/24 Normal [facility] DBT Breast - bilateral scree nabila 04-22-2024 IMPRESSION: There is no mammographic evidence of malignancy. Routine screening mammogram is recommended. Annual mammogram will be due in 1 year. BI-RADS Category 2: Benign RISK: Due to the reported patient's history, the patient's estimated lifetime risk of developing breast cancer cannot be assessed at this time. We encourage all patients to talk with their providers about their risk assessment, further recommendations for managing breast health, and appropriate supplemental screening options if the patient has dense breast tissue. Interpreting Radiologist: Yolanda Lund M.D. Electronically signed on: 04/22/2024 Fish Processing Supervisor: BETH Transcribe Date/Time: Apr 22 2024 7:08A Dictated by: YOLANDA LUND MD This examination was interpreted and the report reviewed and electronically signed by: YOLANDA LUND MD on Apr 22 2024 10:11PM [facility] DIVISION OF RADIOLOGY * * *Final Report* * * DATE OF EXAM: Apr 22 2024 7:20AM [facility] 0582 - [facility] SCREENING W YANE / PROCEDURE REASON: multiple diagnoses * * * * Physician Interpretation * * * * RESULT: [facility] [address] [place] [address] #[id number] - [facility] SCREENING W YANE HISTORY: 58 year-old patient seen for screening and is asymptomatic in both breasts. The patient has the following personal history of breast cancer: breast cancer in the right breast. Patient states no personal history of ovarian cancer. COMPARISON STUDIES: The present examination has been compared to prior imaging studies dated 08/20/2021 (mammogram), 10/02/2021 (mammogram), 04/21/2022 (mammogram) and 04/23/2023 (mammogram). MAMMOGRAM TECHNIQUE: The study was acquired using full field digital technology and interpreted from soft copy. Digital Breast Tomosynthesis (DBT) images were obtained and used to assist in the interpretation of this examination. MAMMOGRAM FINDINGS: There are scattered areas of fibroglandular density. There are surgical clips and post-operative and post-radiation changes in the right breast. No suspicious masses, calcifications or other abnormalities are seen in either breast. DIVISION OF RADIOLOGY Provider, [facility] - 04/22/2024 * * *Final Report* * * DATE OF EXAM: Apr 22 2024 7:20AM [facility] [id number] - [facility] SCREENING W YANE / PROCEDURE REASON: multiple diagnoses * * * * Physician Interpretation * * * * RESULT: [facility] [address] [place] [address] #[id number] - [facility] SCREENING W YANE HISTORY: 58 year-old patient seen for screening and is asymptomatic in both breasts. The patient has the following personal history of breast cancer: breast cancer in the right breast. Patient states no personal history of ovarian cancer. COMPARISON STUDIES: The present examination has been compared to prior imaging studies dated 08/20/2021 (mammogram), 10/02/2021 (mammogram), 04/21/2022 (mammogram) and 04/23/2023 (mammogram). MAMMOGRAM TECHNIQUE: The study was acquired using full field digital technology and interpreted from soft copy. Digital Breast Tomosynthesis (DBT) images were obtained and used to assist in the interpretation of this examination. MAMMOGRAM FINDINGS: There are scattered areas of fibroglandular density. There are surgical clips and post-operative and post-radiation changes in the right breast. No suspicious masses, calcifications or other abnormalities are seen in either breast. IMPRESSION IMPRESSION: There is no mammographic evidence of malignancy. Routine screening mammogram is recommended. Annual mammogram will be due in 1 year. BI-RADS Category 2: Benign RISK: Due to the reported patient's history, the patient's estimated lifetime risk of developing breast cancer cannot be assessed at this time. We encourage all patients to talk with their providers about their risk assessment, further recommendations for managing breast health, and appropriate supplemental screening options if the patient has dense breast tissue. Interpreting Radiologist: Yolanda Lund M.D. Electronically signed on: 04/22/2024 Fish Processing Supervisor: BETH [employer] Date/Time: Apr 22 2024 7:08A Dictated by: YOLANDA LUND MD This examination was interpreted and the report reviewed and electronically signed by: YOLANDA LUND MD on Apr 22 2024 10:11PM EST [facility] Radiology Study observation (narrative) [facility] DBT Breast - bilateral scree ningOrdered By: [facility] Provider on 04-22-2024 [facility] SCREENING W TOMOon 04-22 [facility] SCREENING W YANE * * *Final Report* * * DATE OF EXAM: Apr 22 2024 7:20AM [facility] 0582 - [facility] SCREENING W YANE / PROCEDURE REASON: multiple diagnoses * * * * Physician Interpretation * * * * RESULT: [place] [address] [place] [id number] #[id number] - [facility] SCREENING W YANE HISTORY: 58 year-old patient seen for screening and is asymptomatic in both breasts. The patient has the following personal history of breast cancer: breast cancer in the right breast. Patient states no personal history of ovarian cancer. COMPARISON STUDIES: The present examination has been compared to prior imaging studies dated 08/20/2021 (mammogram), 10/02/2021 (mammogram), 04/21/2022 (mammogram) and 04/23/2023 (mammogram). MAMMOGRAM TECHNIQUE: The study was acquired using full field digital technology and interpreted from soft copy. Digital Breast Tomosynthesis (DBT) images were obtained and used to assist in the interpretation of this examination. MAMMOGRAM FINDINGS: There are scattered areas of fibroglandular density. There are surgical clips and post-operative and post-radiation changes in the right breast. No suspicious masses, calcifications or other abnormalities are seen in either breast. IMPRESSION: There is no mammographic evidence of malignancy. Routine screening mammogram is recommended. Annual mammogram will be due in 1 year. BI-RADS Category 2: Benign RISK: Due to the reported patient's history, the patient's estimated lifetime risk of developing breast cancer cannot be assessed at this time. We encourage all patients to talk with their providers about their risk assessment, further recommendations for managing breast health, and appropriate supplemental screening options if the patient has dense breast tissue. Interpreting Radiologist: Yolanda Lund M.D. Electronically signed on: 04/22/2024 Fish Processing Supervisor: BETH Trans[employer] Date/Time: Apr 22 2024 7:08A Dictated by: YOLANDA LUND MD This examination was interpreted and the report reviewed and electronically signed by: YOLANDA LUND MD on Apr 22 2024 10:11PM EST [id number] Normal [facility] CNOVon 01-12-2024 CNOV Office Visit (INTMWS ) REBECA WILSON ([id number]) 1965 F Date Time Provider Department 01/12/24 5:00 PM AKIRA PIERRE INTMWS During your visit today, we recorded the following information about you: Temperature Pulse Respiration Blood pressure 98.9 degrees 83/minute 16/minute 126/82 Weight Height 95.9 kg 1.67 m Akira Pierre MD 01/12/2024 5:40 PM Signed This note was created using [employer] [employer] [employer]. Subjective Rebeca Wilson is a 58 year old female. HISTORY Rebeca Wilson is a 58 year old lady here for yearly exam and follow up appointment. Rebeca Wilson is a 58-year-old female with a history of polyarthritis, anxiety, and GERD, presenting for an annual exam and follow-up. Rebeca reports stable health and is currently taking multiple medications. She takes meloxicam 15 mg daily for polyarthritis, which she reports is effective in managing her symptoms. She has one refill left and requests an extension to last until her next annual check-up. She also takes omeprazole, which she obtains [id number], for GERD management. Additionally, she uses Flonase, also [id number], for year-round dog allergies. She is under the care of Dr. Zavaleta, who manages her Effexor prescription for anxiety, which she reports has made a significant difference in her symptoms. She notes that her anxiety is well-controlled and does not bother her. She previously took Wellbutrin but switched to Effexor due to creeping anxiety symptoms. Rebeca has a history of polyarthritis, for which she takes meloxicam. She also has a prescription for Flexeril from December 2021, which she uses infrequently, about twice a year, for muscle spasms related to twisting movements. She reports that the medication is effective in settling down the spasms. She has a history of a hiatal hernia repair, which she reports has healed well. She also mentions a history of shingles but declines the shingles vaccine at this time. She has completed her COVID-19 vaccinations and recalls receiving the hepatitis B vaccine but does not remember the exact date. Rebeca reports stable blood pressure readings, primarily in the 110s to 120s range. She notes that her weight has stalled around 211-212 lbs, which she attributes to her medication. She reports that her TSH and T4 levels were within normal range, and she is not on any thyroid medication. She is also part of a clinical trial, which she believes is related to some of her recent lab work. 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 exemestane (AROMASIN) 25 mg tablet Take 1 tablet by mouth every afternoon. venlafaxine ER (EFFEXOR XR) 150 mg 24 hr capsule take 1 capsule by mouth once daily calcium carbonate/vitamin D3 (CALTRATE 600 + D ORAL) Take 1 tablet by mouth once daily. cyclobenzaprine (FLEXERIL) 10 mg tablet Take 0.5-1 tablets by mouth three times daily as needed for muscle spasm. omeprazole (PRILOSEC) 20 mg capsule Take 20 mg by mouth once daily. MULTI-VITAMIN ORAL Take 1 tablet by mouth once daily. fluticasone (FLONASE) 50 mcg/actuation nasal spray Use 2 Sprays in each nostril once daily. Rinse mouth after use. No current facility-administered medications for this visit. ALLERGIES Allergen Reactions Zometa [Zoledronic * Other: See Comments Joint tenderness AND soreness, difficulty breathing due to severe pain FAMILY HISTORY Problem Relation Age of Onset Hypertension Mother Allergies Mother Cancer Father 57 lung-smoker COPD Sister None Sister Breast Cancer Paternal Grandmother 79 Cancer Paternal Grandmother 89 unknown abdominal cancer Colon Cancer Paternal Grandfather 66 Cancer Paternal Aunt 63 lung - smoker Breast Cancer Paternal Aunt 68 Renal Cell Cancer Paternal Uncle 65 Cancer Paternal Uncle 72 adrenal Breast Cancer Paternal great-grandmother Breast Cancer Other 2 paternal great aunts, unknown ages Social History Tobacco Use Smoking status: Former Current packs/day: 0.00 Average packs/day: 1 pack/day for 32.0 years (32.0 ttl pk-yrs) Types: Cigarettes Start date: 08/04/1983 Quit date: 08/07/2015 Years since quittin.4 Smokeless tobacco: Never Vaping Use Vaping status: Never Used Substance Use Topics Alcohol use: Yes Comment: Not weekly Drug use: No Review of Systems Objective BP 126/82 Pulse 83 Temp 37.2 ?C (98.9 ?F) Resp 16 Ht 167 cm (5' 5.75) Wt 95.9 kg (211 lb 6.7 oz) LMP 07/28/2015 (Exact Date) SpO2 98% BMI 34.39 kg/m? Last 5 Encounter Wt Readings: (more content not included)... Normal [facility] Mumps Antibody,IgGon 024 MUMPS Ab, IgG < 9.0 Low Immune >10.9 [facility] Comment on above: Result Comment: Nega tive <9.0 Equivocal 9.0 - 10.9 Positive >10.9 A positive result generally indicates past exposure to Mumps virus or previous vaccination. Performed By: #### L 3100.0539, L3100.3400, L509.4015, L3400.1750 #### [facility] [address] [place], [address] [facility] EMP Rubeola Titeron 11-08 RUBEOLA Ab, IgG 54.3 AU/mL Normal Immune >16.4 [facility] Comment on above: Result Comment: Nega tive <13.5 Equivocal 13.5 - 16.4 Positive >16.4 Presence of antibodies to Rubeola is presumptive evidence of immunity except when acute infection is suspected. Performed at: [address] [id number] End User Consultant: Sunny Jarrell PhD, Phone: [phone] Performed By: #### L 3100.0539, L3100.3400, L509.4015, L3400.1750 #### [facility] [address] [place], [address] Hepatitis B Surf AB - EMPon 12-01-2023 HEP B Surf Ab Reactive Normal [facility] Comment on above: Result Comment: Non Reactive: Inconsistent with immunity less than <10 mIU/mL Reactive: Consistent with immunity greater than or equal to 10 mIU/mL Performed By: #### L 3100.0539, L3100.3400, L509.4015, L3400.1750 #### [facility] [address] [place], [address] Rubella IgG [facility] EMPLOY[facility]on 0 12-01-2023 Rubella IgG Reactive Normal Nonreactive [facility] Comment on above: Result Comment: Anti body Results Interpretation of Immune Status Non Reactive Presumed Non-Immune Equivocal Equivocal Reactive Presumed Immune Performed By: #### L 3100.0539, L3100.3400, L509.4015, L3400.1750 #### [facility] [address] [place], [address] CNNURSEon 11-24-2023 CNNURSE Nurse Visit (LEANDRO) REBECA WILSON ([id number]) 1965 F Date Time Provider Department 11/24/23 YENNY POSADAS During your visit today, we recorded the following information about you: Yenny Posadas RN 11/26/2023 12:23 PM Addendum IRB# [id number] Title: G BR007: A Phase III Clinical Trial Evaluating De-Escalation of Breast Radiation for Conservative Treatment of Stage I, Hormone Sensitive, Her2-Negative, Oncotype Recurrence Score <= 18 Breast Cancer. Participant Information: Informed Consent Signed 11/18/2021 Registered: 11/18/2021 Randomization Date: 11/18/2021 Treatment Arm: HT - TA2 Study ID [id number] Consent to optional samples Yes Staging/Diagnosis pT1b pN0(sn) M0 ER/AR positive, HER2 negative stage IA Study Status Follow Up Current Treatment Plan: Treatment Dose Start Date Frequency End date exemestane (AROMASIN) 25/mg 11/25/2021 Daily Clinical Trial Specific Testing Test Dates Completed Due Date Mammogram Scan 04/23/202304/2024 Clinical Trial Draw 11/17/202211/2024 Year 3 QOLs 11/2023 QOLS were completed in aguilar via [employer] 11/2024 Baseline Weight 89.8 (11/15/2021) 95.5 Creatinine Clearance N/A Patient here today for 24 month post randomization visit. Patient expressed no new symptoms. Patients dry skin has resolved. Patient feeling much more herself - since her gastro/abdominal pain mostly resolved since hernia repair. She still has some issues with her hot flashes, but not terrible. Patient states compliance with endocrine therapy. No missed doses. Patient ECOG 0/ KPS 100 Vitals: 11/24/23 08:15 Weight 95.2 kg (209 lb 14.1 oz) BSA 0 BMI 0 Resp 18 Pulse 82 BP 134/85 SpO2 96 % Current medications reviewed with patient as reported below: Current Outpatient Medications on File Prior to Visit Medication Sig Start/Stop Use [START ON 11/25/2021] exemestane (AROMASIN) 25 mg tablet Take 1 tablet by mouth once daily. Start:11/25/2021 endocrine therapy cyclobenzaprine (FLEXERIL) 10 mg tablet Take 0.5-1 tablets by mouth three times daily as needed for muscle spasm. Start: 11/15/2021 Stopped:12/07/2021 Start:03/09/2022 Muscle relaxer meloxicam (MOBIC) 15 mg tablet Take 1 tablet by mouth once daily. Start: 07/23/2021 Stopped:09/06/2021 Start:03/09/2022 Pain buPROPion SR (WELLBUTRIN SR) 150 mg 12 hr tablet Take 1 tablet by mouth twice daily. Start:07/07/2014 Stop:05/13/2022 Depression and Smoking Cessation omeprazole (PRILOSEC) 20 mg capsule Take 20 mg by mouth once daily. Start:2019 GERD MULTI-VITAMIN ORAL Take by mouth once daily. Start: >15 years Supplement fluticasone (FLONASE) 50 mcg/actuation nasal spray Use 2 Sprays in each nostril once daily. Rinse mouth after use. Start: 07/12/2013 Allergies Vanalafexine (EFFEXOR XR) 150 mg Take by mouth once daily. Start:05/14/2022 Depression Citracal with vitamin D Take by mouth once daily. Start:02/13/2022 Supplement No current facility-administered medications on file prior to visit. Baseline Toxicities per CTCAE v. 5: All predate therapy, are chronic conditions and will not be actively followed unless they worsen during the clinical trial. Pain; Other; bilateral knees: Grade 1 Start date:PRIOR TO STUDY Unrelated to study drug - Resolved: No Treatment: Meloxicam Outcome: Continue to monitor Action Required: Not at this time Dry Mouth Grade 1 Start date:PRIOR TO STUDY - Unrelated to study drug - Resolved: No Treatment: No Outcome: Continue to monitor Action Required: Not at this time Bloating - Grade 1 - Start date:PRIOR TO STUDY -reported 11/24/2023 Unrelated to study drug - Hernia Repair Treatment: No. Outcome: Ongoing Action Required: None Resolved: No Constipation - Grade 1 - Start date:PRIOR TO STUDY -reported 11/24/2023 Unrelated to study drug - Hernia Repair Treatment: No. Outcome: Ongoing Action Required: None Resolved: No Toxicities per CTCAE v. 5 Hypertension; Grade 1 Start date:02/12/2022 Unrelated to study drug - Resolved: No Treatment: No Outcome: Continue to monitor Action Required: Not at this time Hot Flashes; Grade 1 Start date:02/12/2022 Related to study drug - Resolved: No Treatment: No Outcome: Continue to monitor - but improving since Effexor was added on Action Required: Not at this time Edema Limbs; Right Arm Grade 1 Start date:05/06/2022 Related to Zometa Treatment: No. Outcome: Continue monitoring Action Required: No.Resolved: No Abdominal Pain - Grade 2 - Start date:03/09/2023 Unrelated to study drug - Hernia Repair Treatment: No. Outcome: Ongoing Action Required: CT and referral GI Resolved: Yes Patient meets all Criteria for Study Participation: Yes Patient knows to RTC in 6 months for follow-up visit. Patient knows to call in the interim for any questions or concerns. Patient has contact information for Yenny Posadas Research Nurse and Dr. Byrd and (more content not included)... Normal [facility] CNOVSPon 11-24-2023 CNOVSP Visit (SP) Office (LEANDRO) REBECA WILSON ([id number]) 1965 F Date Time Provider Department 11/24/23 8:00 AM STEPHANIE CRAWFORD During your visit today, we recorded the following information about you: Pulse Blood pressure Weight 82/minute 134/85 95.2 kg Stephanie Crawford APRN.CNP 11/24/2023 9:26 AM Signed Chief Complaint Patient presents with: Established Patient HPI: Rebeca Wilson is a 58 year old female who presents here today for follow up breast cancer. Per Dr. Zavaleta's previous note: H/o GERD, multinodular goiter, seborrheic keratosis, arthralgia of the hands, prior COVID-19 infection, obesity and recent diagnosis of invasive ductal carcinoma of the right breast. She developed an abrasion of the right upper breast along where a new bra strap clasp had rubbed it. She was evaluated by Dr. Johnson who noted an approximate 6 to 7 x 5 cm area of dense induration/erythema of the right breast upper chest wall. It felt fibrous without fluctuance. The skin was excoriated for about 1 to 1-1/2 cm with white fibrous tissue noted. Patient underwent diagnostic mammogram on 07/17/2021. There was a 6 x 5 x 5 mm oval mass with a circumscribed margin in the right breast at 1:00 posterior depth 3 cm from the nipple. It appeared hypoechoic with internal echoes on ultrasound and it correlated with the mammogram findings. There was slight thickening of the single axillary lymph node of 4 mm. Patient underwent an ultrasound-guided core needle biopsy on 08/20/2021. Pathology: Invasive mammary carcinoma, provisional histologic grade 2. ER +91 to 100%, strong staining intensity. AR positive, 81 to 90%, strong staining intensity HER2 negative, 1+ on IHC. Patient underwent a right breast GREGORY Public Relations Supervisor localized lumpectomy, right sentinel lymph node mapping and biopsy on 10/07/2021. Pathology: A. Right axilla, sentinel lymph nodes, excision: -Two lymph nodes, negative for metastatic carcinoma (0/2), (please see comment). B. Right breast, lumpectomy: - Invasive mammary carcinoma with mixed ductal and lobular features, [place] grade 2, measuring 7 mm in greatest dimension, (please see comment and synoptic report). 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 Right breast, anterior margin, excision: - Unremarkable breast parenchyma D. Right breast, posterior margin, excision: - Unremarkable breast parenchyma E. Right breast, superior margin, excision: - Unremarkable breast parenchyma F. Right breast, inferior margin, excision: - Unremarkable breast parenchyma G. Right breast, medial margin, excision: - Unremarkable breast parenchyma H. Right breast, lateral margin, excision: - Intraductal papilloma with usual ductal hyperplasia Enrolled in IRB# [id number] Title: NRG BR007: A Phase III Clinical Trial Evaluating De-Escalation of Breast Radiation for Conservative Treatment of Stage I, Hormone Sensitive, Her2-Negative, Oncotype Recurrence Score <= 18 Breast Cancer. Current therapy: 1) Exemestane No new concerns today. Appetite:It's too good. Energy level:Fair. Denies fevers or recent illness. Resp:denies cough or sob Cardiac:denies chest pain/palpitations GI:denies abd pain, n/v, +constipation :denies dysuria/hematuria Extrem:denies pain Endo:+hot flashes Over the past couple weeks I've had more maybe 3-4 per day. They do not wake pt. at night. Neuro:occ. tingling to R hand Skin:denies rashes Heme:denies bleeding The ROS is otherwise negative. Past medical history, appointments, medications, allergies reviewed. No changes. EXAM: BP 134/85 Pulse 82 Wt 95.2 kg (209 lb 14.1 oz) LMP 07/28/2015 (Exact Date) SpO2 96% BMI 33.88 kg/m? APPEARANCE Well appearing, alert, in no acute distress, well-hydrated, well nourished. HEART RRR with normal S1 and S2, no murmurs LUNG clear to auscultation BREAST FEMALE no mass/nodule b/l LYMPH NODES No cervical lymphadenopathy, No supraclavicular lymphadenopathy, and No axillary lymphadenopathy. ABDOMEN bowel sounds normoactive, soft, non-tender EXTREMITIES No edema NEURO Awake, alert and oriented x 3, Normal gait, and No involuntary motions. SKIN Skin color, texture, turgor normal, no suspicious rashes or lesions ASSESSMENT/PLAN: 1. Malignant neoplasm of 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, estrogen receptor positive (HCC) - ICD9: 174.2, V86.0, ICD10: C50.211, Z17.0 (primary diagnosis) pT1b pN0(sn) M0 ER/AR positive, HER2 negative stage IA infiltrating ductal carcinoma of the right breast. 2. Examination of participant in clinical trial - ICD9: V70.7, ICD10: Z00.[address] Zavaleta's previous note: Assessment: -The patient is a 58-year-old postmenopausal female ( (more content not included)... Normal [facility] CNPNon 08-26-2023 CNPN Telephone (HEMLiveset) REBECA WILSON ([id number]) 1965 F Date Time Provider Department 08/26/23 YENNY POSADAS During your visit today, we recorded the following information about you: Stefany Beckford 08/27/2023 3:18 PM Addendum 1st attempt. Message left for patient to contact office and schedule a 3 month OV with Stephanie (Aleida is not on this study per Research Nurse) in February appointment already canceled per request. Amaya Laureano 08/31/2023 3:26 PM Signed Spoke with patient and scheduled. Amaya Laureano Allergies As of Date: 08/26/2023 Noted Allergy Reaction ZOMETA (ZOLEDRONIC ACID) 05/13/2022 14 - Other: See Comments Comments: Joint tenderness AND soreness, difficulty breathing due to severe pain Date Reviewed: 08/24/2023 Reviewed by: Nahun Zavaleta DO - Fully Assessed Prescriptions as of 08/31/2023 - venlafaxine ER (EFFEXOR XR) 150 mg 24 hr capsule take 1 capsule by mouth once daily - meloxicam (MOBIC) 15 mg tablet Take 1 tablet by mouth once daily. - exemestane (AROMASIN) 25 mg tablet take 1 tablet once daily - calcium carbonate/vitamin D3 (CALTRATE 600 + D ORAL) Take 1 tablet by mouth once daily. - cyclobenzaprine (FLEXERIL) 10 mg tablet Take 0.5-1 tablets by mouth three times daily as needed for muscle spasm. - omeprazole (PRILOSEC) 20 mg capsule Take 20 mg by mouth once daily. - MULTI-VITAMIN ORAL Take 1 tablet by mouth once daily. - fluticasone (FLONASE) 50 mcg/actuation nasal spray Use 2 Sprays in each nostril once daily. Rinse mouth after use. Problem List As Of Date 08/26/2023 Noted Resolved Seborrheic keratosis [L82.1] 12/16/2011 Smoker [F17.200] 12/16/2011 10/02/2015 Arthralgia of hands [M25.549] 12/16/2011 Thyroid nodule [E04.1] 07/22/2013 Nontoxic multinodular goiter [E04.2] 08/03/2013 Screening mammogram, encounter for [Z12.31] 09/27/2021 Malignant neoplasm of upper-inner quadrant of r*09/27/2021 Family history of breast cancer [Z80.3] 09/27/2021 Invasive ductal carcinoma of breast, right (HCC*10/04/2021 History of COVID-19 [Z86.16] 09/11/2021 GERD (gastroesophageal reflux disease) [K21.9] Mood disorder (HCC) [F39] Obese [E66.9] Obesity, Class I, BMI 30-34.9 [E66.9] 10/07/2021 Other chest pain [R07.89] 11/07/2021 Low TSH level [R79.89] 07/11/2022 Adrenal nodule (HCC) [E27.8] 02/28/2023 Encounter Status:Closed by AMAYA LAUREANO on 08/31/23 [facility] CNOVSPon 08-24-2023 CNOVSP Visit (SP) Office ([facility]) REBECA WILSON ([id number]) 1965 F Date Time Provider Department 08/24/23 3:50 PM NAHUN AZVALETA HEMAWS During your visit today, we recorded the following information about you: Temperature Pulse Blood pressure Weight 98.4 degrees 71/minute 117/79 96.2 kg Nahun Zavaleta, 08/24/2023 4:23 PM Signed Oncologic problem(s): 1) pT1b pN0(sn) M0 ER/AR positive, HER2 negative stage IA infiltrating ductal carcinoma of the right breast. HPI: The patient is a 58-year-old female with a past medical history significant for GERD, multinodular goiter, seborrheic keratosis, arthralgia of the hands, prior COVID-19 infection, obesity and recent diagnosis of invasive ductal carcinoma of the right breast. She developed an abrasion of the right upper breast along where a new bra strap clasp had rubbed it. She was evaluated by Dr. Johnson who noted an approximate 6 to 7 x 5 cm area of dense induration/erythema of the right breast upper chest wall. It felt fibrous without fluctuance. The skin was excoriated for about 1 to 1-1/2 cm with white fibrous tissue noted. Patient underwent diagnostic mammogram on 07/17/2021. There was a 6 x 5 x 5 mm oval mass with a circumscribed margin in the right breast at 1:00 posterior depth 3 cm from the nipple. It appeared hypoechoic with internal echoes on ultrasound and it correlated with the mammogram findings. There was slight thickening of the single axillary lymph node of 4 mm. Patient underwent an ultrasound-guided core needle biopsy on 08/20/2021. Pathology: Invasive mammary carcinoma, provisional histologic grade 2. ER +91 to 100%, strong staining intensity. AR positive, 81 to 90%, strong staining intensity HER2 negative, 1+ on IHC. Patient underwent a right breast GREGORY Public Relations Supervisor localized lumpectomy, right sentinel lymph node mapping and biopsy on 10/07/2021. Pathology: A. Right axilla, sentinel lymph nodes, excision: -Two lymph nodes, negative for metastatic carcinoma (0/2), (please see comment). B. Right breast, lumpectomy: - Invasive mammary carcinoma with mixed ductal and lobular features, Ephraim grade 2, measuring 7 mm in greatest dimension, (please see comment and synoptic report). 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 Right breast, anterior margin, excision: - Unremarkable breast parenchyma D. Right breast, posterior margin, excision: - Unremarkable breast parenchyma E. Right breast, superior margin, excision: - Unremarkable breast parenchyma F. Right breast, inferior margin, excision: - Unremarkable breast parenchyma G. Right breast, medial margin, excision: - Unremarkable breast parenchyma H. Right breast, lateral margin, excision: - Intraductal papilloma with usual ductal hyperplasia Enrolled in IRB# [id number] Title: G [id number]: A Phase III Clinical Trial Evaluating De-Escalation of Breast Radiation for Conservative Treatment of Stage I, Hormone Sensitive, Her2-Negative, Oncotype Recurrence Score <= 18 Breast Cancer. Current therapy: 1) Exemestane Presents for ongoing oncologic management. Interim history: Hiatal hernia repair since last here. Lot of reflux and dyspepsia. Venlafaxine helping better with mood. Better sense of well being. Hot flashes much less frequent. Previous--joint pain in fingers, elbows, knees and ankles improved as well. 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 PMH, medications and allergies personally reviewed by me today. Any changes documented in appropriate section. ROS: Constitutional: Denies episodes of fever and night sweats. Not significantly fatigued. Normal appetite. Neuro: Denies [place], vertigo, dizziness and imbalance. Denies symptoms of neuropathy. HEENT: No recent change in voice, vision or hearing. Resp: Denies cough, wheeze and hemoptysis. Denies shortness of breath at rest. Denies KISER. CVS: Denies exertional chest pain, PND, orthopnea and LE edema. GI: Denies dysgeusia. Denies symptoms of stomatitis. Denies dysphagia and odynophagia. Denies reflux, n/v, change in bowel habits and abdominal pain. : Denies dysuria or gross hematuria. No symptoms of bladder outlet obstruction. Endo: Denies polyuria and polydipsia. Denies heat and cold intolerance. Musculoskeletal: See above. Derm: See above. Heme: Denies unusual bleeding and unexplained bruising. Psych: See above. PHYSICAL EXAM: Vitals: Last menstrual period 07/28/2015. Well-appearing and in no acute distress. EYES: Sclerae are anicteric bilaterally. LYMPHATIC: There is no palpable cervical, supraclavicular or axillary adenopathy. RESPIRATORY: Inspiratory breath sounds are of normal in (more content not included)... Normal [facility] T4 Free SerPl-mCncon 024 Free T4 [Mass/Vol] 1.1 ng/dL Normal 0.9-1.7 [facility] Comment on above: Order Comment: Speci men Type: BLOOD SPECIMENOrdering Facility: [facility] Address: [address] [place] [address] Performed By: #### 3 024-7, 30163 ####[facility] LABCLIA [id number] [place] [address] [place] TSH SerPl-aCncon 08-18-2023 TSH Qn 0.480 m[IU]/L Normal 0.270-4.200 [facility] Comment on above: Order Comment: Speci men Type: BLOOD SPECIMENOrdering Facility: [facility] Address: [address] [place] [address] Performed By: #### 3 024-7, 30163 ####[facility]CLIA [id number] [place] [address] [place] CNOVon 06-25-2023 CNOV Office Visit (OSVALDO ) REBECA WILSON ([id number]) 1965 F Date Time Provider Department 06/25/23 8:00 AM LANDY SCHNEIDER During your visit today, we recorded the following information about you: Landy Schneider MD 06/26/2023 4:49 AM Signed FOLLOW UP VISIT - HERNIA NAME: Rebeca Wilson CLINIC NO.: [id number] DATE OF SERVICE: 06/25/2023 : 1965 REFERRING PHYSICIAN: Akira Pierre MD Rebeca is a patient I am following for a supraumbilical hernia. I performed a laparoscopic ventral hernia repair with mesh on June 11, 2023. The patient was found to have a 2cm ventral hernia 3cm above the umbilicus and a 1.5cm umbilical hernia. A 12cm [place] mesh was placed with an laparoscopic IPOM repair. The patient currently notes an occasional pulling feeling or abdominal wall spasm in her right lateral abdomen lateral to the mesh site. her appetite has been good. she denies fever, chills or abdominal pain. she does note some minimal incisional discomfort. she notes no bulges at the operative site VITALS: Last menstrual period 07/28/2015. On examination, the abdomen is benign. The incisions are healing well without signs of infection or inflammation. There are no signs of recurrent hernia formation. Assessment IMPRESSION: status post laparoscopic ventral hernia repair with mesh PLAN: If the patient notes any problems, she should contact me immediately. she may return to her regular activities as tolerated, with the exception of no lifting greater than 20 pounds for the next 6 weeks. We discussed that she is still having discomfort in the area after the next few months she should return for evaluation of possible anesthetic nerve injection but that most likely this discomfort will resolve. Diagnoses: (K43.9) Ventral hernia without obstruction or gangrene (primary encounter diagnosis) Return to Clinic: The patient is instructed to follow-up with me as needed. Landy Schneider MD Allergies As of Date: 06/25/2023 Noted Allergy Reaction ZOMETA (ZOLEDRONIC ACID) 05/13/2022 14 - Other: See Comments Comments: Joint tenderness AND soreness, difficulty breathing due to severe pain Date Reviewed: 06/25/2023 Reviewed by: Bárbara Fortune MA - Fully Assessed Reason for Visit: Post-Op Visit [1236] Cmt: 06/10 ventral hernia repair Primary Visit Diagnosis:Ventral hernia without obstruction or gangrene [K43.9] Prescriptions as of 06/26/2023 - meloxicam (MOBIC) 15 mg tablet Take 1 tablet by mouth once daily. - exemestane (AROMASIN) 25 mg tablet take 1 tablet once daily - venlafaxine ER (EFFEXOR XR) 150 mg 24 hr capsule TAKE 1 CAPSULE BY MOUTH ONCE DAILY - calcium carbonate/vitamin D3 (CALTRATE 600 + D ORAL) Take 1 tablet by mouth once daily. - cyclobenzaprine (FLEXERIL) 10 mg tablet Take 0.5-1 tablets by mouth three times daily as needed for muscle spasm. - omeprazole (PRILOSEC) 20 mg capsule Take 20 mg by mouth once daily. - MULTI-VITAMIN ORAL Take 1 tablet by mouth once daily. - fluticasone (FLONASE) 50 mcg/actuation nasal spray Use 2 Sprays in each nostril once daily. Rinse mouth after use. Problem List As Of Date 06/25/2023 Noted Resolved Seborrheic keratosis [L82.1] 12/16/2011 Smoker [F17.200] 12/16/2011 10/02/2015 Arthralgia of hands [M25.549] 12/16/2011 Thyroid nodule [E04.1] 07/22/2013 Nontoxic multinodular goiter [E04.2] 08/03/2013 Screening mammogram, encounter for [Z12.31] 09/27/2021 Malignant neoplasm of upper-inner quadrant of r*09/27/2021 Family history of breast cancer [Z80.3] 09/27/2021 Invasive ductal carcinoma of breast, right (HCC*10/04/2021 History of COVID-19 [Z86.16] 09/11/2021 GERD (gastroesophageal reflux disease) [K21.9] Mood disorder (HCC) [F39] Obese [E66.9] Obesity, Class I, BMI 30-34.9 [E66.9] 10/07/2021 Other chest pain [R07.89] 11/07/2021 Low TSH level [R79.89] 07/11/2022 Adrenal nodule (HCC) [E27.8] 02/28/2023 Encounter Status:Closed by LANDY SCHNEIDER on 06/26/23 Normal [facility] CNPNon 06-16-2023 CNPN Telephone (GENSWS) REBECA WILSON ([id number]) 1965 F Date Time Provider Department 06/16/23 NURSE GENS [facility] GENSWS During your visit today, we recorded the following information about you: Vineet Meier RN 06/16/2023 9:45 AM Signed Type of form: FMLA Form received via walk in When form is completed, Fax form to [phone] Form has been forwarded to Physician Mailbox: VIOLETTE Naik Rhonda, RN 06/16/2023 9:45 AM Signed Form faxed to [facility]. Fax confirmation sheet received. My Chart message sent to Rebeca, advising that the forms had been completed, faxed, and a copy was left at the front desk supervisor for her. Vineet Meier RN Allergies As of Date: 06/16/2023 Noted Allergy Reaction ZOMETA (ZOLEDRONIC ACID) 05/13/2022 14 - Other: See Comments Comments: Joint tenderness AND soreness, difficulty breathing due to severe pain Date Reviewed: 06/11/2023 Reviewed by: Hollie Eller, VIOLETTE - Fully Assessed Reason for Visit: FMLA Paperwork [4183] Prescriptions as of 06/16/2023 - oxyCODONE-acetaminophe n (PERCOCET) 5-325 mg tablet Take 1 tablet by mouth four times a day as needed for pain for up to 5 days. FOR PAIN. - meloxicam (MOBIC) 15 mg tablet Take 1 tablet by mouth once daily. - exemestane (AROMASIN) 25 mg tablet take 1 tablet once daily - venlafaxine ER (EFFEXOR XR) 150 mg 24 hr capsule TAKE 1 CAPSULE BY MOUTH ONCE DAILY - calcium carbonate/vitamin D3 (CALTRATE 600 + D ORAL) Take 1 tablet by mouth once daily. - cyclobenzaprine (FLEXERIL) 10 mg tablet Take 0.5-1 tablets by mouth three times daily as needed for muscle spasm. - omeprazole (PRILOSEC) 20 mg capsule Take 20 mg by mouth once daily. - MULTI-VITAMIN ORAL Take 1 tablet by mouth once daily. - fluticasone (FLONASE) 50 mcg/actuation nasal spray Use 2 Sprays in each nostril once daily. Rinse mouth after use. Problem List As Of Date 06/16/2023 Noted Resolved Seborrheic keratosis [L82.1] 12/16/2011 Smoker [F17.200] 12/16/2011 10/02/2015 Arthralgia of hands [M25.549] 12/16/2011 Thyroid nodule [E04.1] 07/22/2013 Nontoxic multinodular goiter [E04.2] 08/03/2013 Screening mammogram, encounter for [Z12.31] 09/27/2021 Malignant neoplasm of upper-inner quadrant of r*09/27/2021 Family history of breast cancer [Z80.3] 09/27/2021 Invasive ductal carcinoma of breast, right (HCC*10/04/2021 History of COVID-19 [Z86.16] 09/11/2021 GERD (gastroesophageal reflux disease) [K21.9] Mood disorder (HCC) [F39] Obese [E66.9] Obesity, Class I, BMI 30-34.9 [E66.9] 10/07/2021 Other chest pain [R07.89] 11/07/2021 Low TSH level [R79.89] 07/11/2022 Adrenal nodule (HCC) [E27.8] 02/28/2023 Encounter Status:Closed by VINEET MEIER on 06/16/23 Normal [facility] ANES POSTPROC EVALon 04-04-2 024 ANES POSTPROC EVAL HNO ID: [id number] Author: JOSE E SALINAS MD Service: ? Author Type: Anesthesiologist Type: Anesthesia Postprocedure Evaluation Filed: 06/11/2023 13:07 Note Text: POST ANESTHESIA EVALUATION NOTE : 1965 Procedure Summary Date: 06/11/23 Room / Location: [place] OR01 / [place] Anesthesia Start: 0834 Anesthesia Stop: 1009 Procedure: LAPAROSCOPIC HERNIORRHAPHY FOR REDUCIBLE VENTRAL LESS THAN 3cm (Abdomen) Diagnosis: Ventral hernia without obstruction or gangrene (Ventral hernia without obstruction or gangrene [K43.9]) Surgeons: Landy Schneider MD Responsible Provider: Jose E Salinas MD Anesthesia Type: general ASA Status: 2 Anesthesia Type: general Airway Type: ETT Last Vitals Vitals Value Taken Time BP 118/64 06/11/23 1110 Temp 37 ?C (98.6 ?F) 06/11/23 1110 Pulse 81 06/11/23 1110 Resp 17 06/11/23 1110 SpO2 94 % 06/11/23 1110 Post Anesthesia Patient Status Patient Evaluation: bedside. Anticipated Disposition: phase 2 then home. Neurological Status: aware and responsive. Pulmonary Status: breathing comfortably on room air Airway Control: returned to baseline unsupported. Cardiovascular Status: stable. Pain Management: clinically adequate Postoperative Hydration: acceptable. Intraoperative Events: no significant anesthesia events Post Operative Nausea/Vomiting Status: no significant post operative nausea or vomiting Recommendation: continue current plan of care. Anesthesia Observations No Documentation SIGNATURE: Jose E Salinas MD PATIENT NAME: Rebeca Wilson DATE: June 11, 2023 TIME: 1:07 PM CSN: [id number] [facility] ANES PRE-OPon 06-11-2023 ANES PRE-OP HNO ID: [id number] Author: JOSE E SALINAS MD Service: ? Author Type: Anesthesiologist Type: Anesthesia Preprocedure Evaluation Filed: 06/11/2023 08:28 Note Text: ANESTHESIOLOGY DAY OF SURGERY NOTE : 1965 Procedure Information Date/Time: 06/11/23 0830 Procedure: LAPAROSCOPIC HERNIORRHAPHY FOR REDUCIBLE VENTRAL LESS THAN 3cm (Abdomen) Location: [place] OR01 / [place] Surgeons: Landy Schneider MD Estimated body mass index is 34.22 kg/m? as calculated from the following: Height as of this encounter: 167.6 cm (5' 6). Weight as of this encounter: 96.2 kg (212 lb). Most recent hematocrit and potassium results: Hematocrit 40.1 06/20/2022 Potassium 4.0 10/15/2022 Relevant Problems ANESTHESIA (-) Sleep apnea CARDIO (-) Angina at rest (HCC) GI (+) GERD (gastroesophageal reflux disease) NEURO-PSYCH (+) History of COVID-19 PULMONARY (+) History of COVID-19 (-) Asthma (-) Sleep apnea I - PHYSICAL EVALUATION AIRWAY Patient intubated: No. Tracheostomy tube not present Mallampati: II. TM distance: >3 FB. Neck ROM: full ROM without neurological symptoms. Mouth opening: adequate. Short neck: no. Thick neck: no [place] present: no DENTAL Dental findings: teeth intact. Additional exam findings: yes. CARDIOVASCULAR Rhythm: regular Rate: normal PULMONARY Breath sounds clear to auscultation. II - ANESTHESIA PLAN ASA Score: 2 Anesthetic Plan: general Airway type: ETT The patient is not a current smoker. NPO Status: adequate Beta Ashly Monitoring Plan Monitoring plan: standard ASA. Post Procedure Analgesic Plan Informed Consent Anesthetic risks, benefits, alternatives, personnel and consent discussed: yes. Patient / Responsible Green Party agrees to proceed: yes Patient / Surrogate agrees to blood products: Yes DNR status not reviewed with patient and/or family prior to surgery. Significant changes in the patient condition since the History and Physical, not otherwise documented in primary service progress note: no. Potential Anesthesia issues that may suggest increased risk of complications or contraindication to planned procedure: none. Vitals Value Taken Time BP 138/76 06/11/23720 Pulse 71 06/11/23720 Resp 16 06/11/23720 Temp 37 ?C (98.6 ?F) 06/11/23720 SpO2 96 % 06/11/23720 Facility-Administered Medications as of 06/11/2023 Medication Dose Route Frequency - lidocaine (PF) 10 mg/mL (1 %) 1-2 mg injection (XYLOCAINE) 0.1-0.2 mL INTRADERMAL PRN - lactated ringers iv infusion 5-30 mL/hr INTRAVENOUS CONTINUOUS - NaCl 0.9% iv flush bag 20 mL INTRAVENOUS PRN - ceFAZolin iv piggyback 2 g in D5W (iso-osmotic) 100 mL (ANCEF) 2 g INTRAVENOUS Pre-Op Once - [COMPLETED] acetaminophen 650 mg tab(s) (TYLENOL) 650 mg ORAL Pre-Op Once - [COMPLETED] promethazine 12.5 mg tab(s) (PHENERGAN) 12.5 mg ORAL Pre-Op Once Outpatient Medications as of 06/11/2023 Medication Sig - exemestane (AROMASIN) 25 mg tablet take 1 tablet once daily - venlafaxine ER (EFFEXOR XR) 150 mg 24 hr capsule TAKE 1 CAPSULE BY MOUTH ONCE DAILY - omeprazole (PRILOSEC) 20 mg capsule Take 20 mg by mouth once daily. - fluticasone (FLONASE) 50 mcg/actuation nasal spray Use 2 Sprays in each nostril once daily. Rinse mouth after use. - oxyCODONE-acetaminophe n (PERCOCET) 5-325 mg tablet Take 1 tablet by mouth four times a day as needed for pain for up to 5 days. FOR PAIN. - meloxicam (MOBIC) 15 mg tablet Take 1 tablet by mouth once daily. - calcium carbonate/vitamin D3 (CALTRATE 600 + D ORAL) Take 1 tablet by mouth once daily. - cyclobenzaprine (FLEXERIL) 10 mg tablet Take 0.5-1 tablets by mouth three times daily as needed for muscle spasm. - MULTI-VITAMIN ORAL Take 1 tablet by mouth once daily. I have interviewed and examined the patient. I have reviewed the medical record and/or the pre-anesthesia evaluation, pertinent labs, and test results. This contains updated information obtained within 48 hours of Surgery/Procedure. SIGNATURE: Jose E Salinas MD PATIENT NAME: Rebeca Wilson DATE: June 11, 2023 TIME: 8:27 AM CSN: [id number] [facility] BRIEF OP NOTon 06-11-2023 BRIEF OP NOT HNO ID: [id number] Author: LANDY SCHNEIDER MD Service: General Surgery Author Type: Physician Type: Brief Op Note Filed: 06/11/2023 10:15 Note Text: BRIEF OPERATIVE NOTATION FOR SURGICAL PROCEDURE. Rebeca Wilson 1965 [id number] LOG ID: [id number] Surgery/Procedure Date: 06/11/2023 Incision/Procedure Start Time: 8:57 AM Incision Close/Procedure End Time: 9:46AM Surgeon(s)/Procedurali st(s) and Application Support Developer(s): Surgeon(s) and Role: * Landy Schneider MD - Primary Physician Application Support Developer: Carolyn Trejo PA-C REFERRING PHYSICIAN: Outpatient DEPT: [facility] PROVIDER: Shalini POS: [id number] ANESTHESIA: General ASA CLASS: 2 - mild DIAGNOSIS: ventral and umbilical hernia PROCEDURE: Initial anterior abdominal hernia repair: 35641 - 3-10 cm incarcerated or strangulated - laparoscopic ventral IPOM IVF: 1000 EBL: 10 Specimens: hernia sac and preperitoneal fat ADDITIONAL DIAGNOSES: FINDINGS: 2cm ventral and 1.5cm umbilical defect COMPLICATIONS: None PMHx - PAST MEDICAL HISTORY Diagnosis Date Adrenal nodule (HCC) GERD (gastroesophageal reflux disease) History of COVID-19 09/11/2021 Malignant neoplasm of overlapping sites of right female breast (HCC) 09/2021 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 Item Serial No. Woods Laborer Lot No. LRB No. Used Action MESH SURGICAL PARIETENE DS 12CM ROUND - [id number] Mesh MESH SURGICAL PARIETENE DS 12CM ROUND [employer] [id number] N/A 1 Implanted Operative note dictated in the dictation system. - [id number] Landy Schneider MD [facility] HISTORY PHYSICALon HISTORY PHYSICAL HNO ID: [id number] Author: LANDY SCHNEIDER MD Service: General Surgery Author Type: Physician Type: H&P Filed: 06/11/2023 07:12 Note Text: HISTORY AND PHYSICAL Rebeca Wilson 1965 REFERRING PHYSICIAN: Nahun Zavaleta DO CHIEF COMPLAINT: Consult (Epigastric pain) HPI: Rebeca is a 57 year old female with a complaint of what she describes as reflux and epigastric pain symptoms. Patient notes some reflux. She was started on ripe-fgv-vzamamw Prilosec 2 tablets a day and notes improvement in her reflux symptoms. The patient also notes discomfort in her supraumbilical area. She assumed this was her stomach. She does note a tender area in the area of the supraumbilical epigastrium The patient had CT scan performed at [facility]. This demonstrated a very small break in the fascial location but no obvious hernia. The patient denies incisions in that region. The patient notes no symptoms of bowel obstruction and denies nausea or vomiting. The patient was seen by Lorri Rodriguez in hematology oncology office who referred the patient for likely reflux/GERD symptoms. Rebeca was referred for evaluation and treatment. Underwent colonoscopy on January 31, 2020 with a second-degree family history of colon cancer. Her colonoscopy was unremarkable but due to a strong family history of malignancy we recommended 5-year follow-up. The patient is being seen by me today at the request of Dr. Akira Pierre MD for my opinion and advice regarding reflux and epigastric pain. 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 exemestane (AROMASIN) 25 mg tablet take 1 tablet once daily venlafaxine ER (EFFEXOR XR) 150 mg 24 hr capsule TAKE 1 CAPSULE BY MOUTH ONCE DAILY calcium carbonate/vitamin D3 (CALTRATE 600 + D ORAL) Take 1 tablet by mouth once daily. cyclobenzaprine (FLEXERIL) 10 mg tablet Take 0.5-1 tablets by mouth three times daily as needed for muscle spasm. omeprazole (PRILOSEC) 20 mg capsule Take 20 mg by mouth once daily. MULTI-VITAMIN ORAL Take 1 tablet by mouth once daily. fluticasone (FLONASE) 50 mcg/actuation nasal spray Use 2 Sprays in each nostril once daily. Rinse mouth after use. No current facility-administered medications for this visit. ALLERGIES: Zometa [Zoledronic Acid] PERSONAL HISTORY: SOCIAL HISTORY Social History Tobacco Use Smoking status: Former Packs/day: 1.00 Years: 32.00 Additional pack years: 0.00 Total pack years: 32.00 Types: Cigarettes Start date: 08/04/1983 Quit date: 08/07/2015 Years since quittin.8 Smokeless tobacco: Never Vaping Use Vaping Use: Never used Substance Use Topics Alcohol use: Yes Comment: Not weekly Drug use: No FAMILY HISTORY: FAMILY HISTORY FAMILY HISTORY Problem Relation Age of Onset Hypertension Mother Allergies Mother Cancer Father 57 lung-smoker COPD Sister None Sister Breast Cancer Paternal Grandmother 79 Cancer Paternal Grandmother 89 unknown abdominal cancer Colon Cancer Paternal Grandfather 66 Cancer Paternal Aunt 63 lung - smoker Breast Cancer Paternal Aunt 68 Renal Cell Cancer Paternal Uncle 65 Cancer Paternal Uncle 72 adrenal Breast Cancer Paternal great-grandmother Breast Cancer Other 2 paternal great aunts, unknown ages REVIEW OF SYMPTOMS: The review of systems data was entered by the nurse and reviewed by id Nursing Notes: Kimi Talamantes RN 06/02/2023 2:29 PM Addendum REVIEW OF SYSTEMS: General: The patient denies fatigue, denies weight loss, NOTES weight gain, denies feeling hot, and denies feelings of cold. Eyes: The patient denies glaucoma, denies eye injury/surgery, does wear glasses or contacts. Ear/Nose/Throat: The patient NOTES allergies, denies hayfever, denies ear infections, and denies bloody noses. Cardiovascular: The patient denies chest pain, denies heart disease, denies high blood pressure,denies cardiac stent, denies prior heart attack, denies irregular heart beat, denies high cholesterol, denies poor circulation, denies heart failure, other cardiac issues, denies claudication, denies cold feet, denies peripheral arterial stent. Respiratory: The patient denies tuberculosis, denies pneumonia, denies frequent cough, denies pulmonary embolism, denies short (more content not included)... Normal [facility] OPERATIVE NOon 06-11-2023 OPERATIVE NO HNO ID: [id number] Author: LANDY SCHNEIDER MD Service: General Surgery Author Type: Physician Type: Operative Report Filed: 06/11/2023 14:37 Note Text: [facility] - Operative Report REBECA WILSON : 1965 AGE: 57. SEX: F PATIENT TYPE: [place] [facility] [place] LOCATION: [facility] ATTENDING PHYSICIAN: Landy Schneider M.D. CSN NUMBER: [id number] DATE OF SURGERY/PROCEDURE: 06/11/2023 INCISION/PROCEDURE START TIME: 8:57 a.m. INCISION CLOSE/PROCEDURE END TIME: 9:46 a.m. PREOPERATIVE DIAGNOSIS: 1.5 to 2 cm ventral hernia approximately 3 cm at the umbilicus. POSTOPERATIVE DIAGNOSIS: 1.5 to 2 cm ventral hernia, 3 cm at the umbilicus and occult umbilical hernia 1.5 cm at the umbilicus. SURGEON: Landy Schneider M.D. TERRAZZO POLISHER HELPER: Carolyn Trejo PA-C SURGERY/PROCEDURE: Laparoscopic ventral hernia intraperitoneal onlay mesh repair or initial anterior abdominal hernia repair, 3 to 10 cm incarcerated, strangulated. ANESTHESIA: General endotracheal. LOG ID: [id number] ANESTHESIOLOGIST: Dr. Jara. ANESTHESIA: General endotracheal. ASA: 2. INTRAVENOUS FLUIDS: 1000 mL. ESTIMATED BLOOD LOSS: 10 mL. URINE OUTPUT: No catheter. FINDINGS: As described above. SPECIMENS: Hernia sac and preperitoneal fat. DRAINS: None. COMPLICATIONS: None. DISPOSITION: The patient brought to PACU in stable condition. DESCRIPTION OF PROCEDURE: The patient's hernia site was marked in the holding area. The patient concurred this planned operative site. Sign-in was verifying the patient, site, procedure, position, critical nursing information, VTE, and antibiotic prophylaxis. The patient received 2 g of Ancef and sequential pressure compression device was placed. Following induction of general anesthetic, abdomen was prepped and draped in usual fashion. Prior to that, ultrasound was used to verify the location of the hernia defect given the patient's abdominal adiposity to assure incision made at the right location. Following this, a time-out was performed verifying the patient, site, procedure, position. Local anesthetic injected just above the umbilicus at the planned site of the hernia defect. Incision made, dissected down to subcutaneous fat. The hernia sac was encountered, opened. The preperitoneal fat was reduced into the abdomen and the fascial defect was palpated. Two stay sutures placed and the Chelsey trocar was inserted into the fascial defect, secured with stay sutures. Pneumoperitoneum to 15 mmHg was insufflated. Three 5 mm ports were placed in the left lateral position. Visual inspection revealed the inverted hernia sac with significant preperitoneal fat and the falciform ligament. Sonicision was used to remove part of the peritoneum over the distance of the planned intraperitoneal mesh placement, including part of the falciform and an area below the umbilicus. The dissection was continued. Remaining preperitoneal fat that was in the initial ventral defect and then an occult umbilical hernia was identified also with preperitoneal fat that was reduced. Once this was completed, the hernia sac and preperitoneal fat that were excised were placed in an endobag and removed through the port site. A 12 cm [place] mesh was then marked to have the peritoneal side and a retention suture placed in the superior aspect. This was placed in the peritoneal cavity. Then, unrolled and secured with 4-0 Prolene transfixing sutures at the craniocaudal and lateral aspects. Following this, a ProTack Tacker was used to tack around the outside rim of the mesh. A transfixing prolene was then placed through the supraumbilical incision to tack the mesh in the center and then the fascial defect was closed with a [id number]-[id number] Prolene suture. Additional tacks were placed at the internal ring. Following this, pneumoperitoneum released and the 5 ports removed under direct visualization. The supraumbilical incision was closed in the subcutaneous layer with interrupted 3-0 Vicryl. Skin was closed with interrupted 4-0 Monocryl subcu sutures. Steri-Strips applied. Dressing was applied. Additional local anesthetic was injected in the incisions. The patient was extubated, brought to recovery room in stable condition. Carolyn Trejo was my 1st assistant tennis coach. She assisted in visualization, retraction, and subcuticular closure. There were no surgeons or qualified residents available. Landy Schneider M.D. RG:[id number] /[id number] [facility] SURGICAL PATHOLOGYon 024 CASE REPORT [facility] Comment on above: Order Comment: Speci men Type: TISSUE SPECIMEN Ordering Facility: [facility] Address: [address] [place] [address] [place] [address] Result Comment: Surg [facility] Pathology Report Case: [id number] Authorizing Provider: Landy Schneider MD Collected: 06/11/2023 09:47 AM Ordering Location: [facility] Surgery Received: 06/11/2023 10:24 AM Pathologist: Kandis Moyer MD Specimen: HERNIA SAC, preperitoneal hernia sac Performed By: #### S #### [facility] CLIA [id number] [address] [place] [address] [place] CLINICAL HISTORY Normal [facility] Comment on above: Order Comment: Speci men Type: TISSUE SPECIMEN Ordering Facility: [facility] Address: [address] [place] [address] Result Comment: Pre- op diagnosis: Ventral hernia without obstruction or gangrene [K43.9] Performed By: #### S #### [facility] CLIA [id number] [address] [place] [address] OF [facility] FINAL DIAGNOSIS Normal [facility] Comment on above: Order Comment: Speci men Type: TISSUE SPECIMEN Ordering Facility: [facility] Address: [address] [place] [address] Result Comment: Soft tissue, preperitoneal, herniorrhaphy: - Hernia sac. Performed By: #### S #### [facility] CLIA [id number] [address] [place] [address] OF [place] FINAL PERFORMING LAB Normal [facility] Comment on above: Order Comment: Speci men Type: TISSUE SPECIMEN Ordering Facility: [facility] Address: [address] [place] [address] Result Comment: Diag nostic interpretation performed at [facility], [address] [place] [address] CLIA# [id number] Transition Rn: Elias Hamilton M.D. Performed By: #### S #### [facility] CLIA [id number] [address] [id number] [address] [place] GROSS DESCRIPTION A. HERNIA SAC Normal [facility] Comment on above: Order Comment: Speci men Type: TISSUE SPECIMEN Ordering Facility: [facility] Address: [address] [place] [address] Result Comment: Rece ived in formalin labeled preperitoneal hernia sac is a irregular segment of triana-purple membranous soft tissue with attached yellow-brown lobulated adipose tissue measuring 9.5 x 6.0 x 4.0 cm. Sectioning reveals unremarkable cut surfaces. Bacon Stringer section is submitted in A1. MSL/MLG June 11, 2023 1:33 PM Gross examination performed at [facility], [address] [place] [address], [place] [address] CLIA# [id number] Performed By: #### S #### [facility] CLIA [id number] [address] [place] [address] CNPOlga 06-09-2023 CNPN Telephone ([employer]) REBECA WILSON ([id number]) 1965 F Date Time Provider Department 06/09/23 LANDY SCHNEIDER During your visit today, we recorded the following information about you: Mary Moses RN 06/09/2023 8:25 AM Signed Patient call to give update. Lap ventral hernia surgery is scheduled with DR Schneider in two days- 06/11/23. C/O Clear, runny. drippy nose, some nasal congestion, along with some post nasal drip. Denies cough, no sore throat, no fevers or chills. No fatigue. No sinus pressure. No h/o asthma and is not a smoker. Advised her that she should be able to proceed with surgery as scheduled and that provider will be made aware. Asked her to call if symptoms become worse in the next day to give surgeon an update. Advised her to monitor symptoms closely. Patient verbalizes understanding and has no further questions or concerns at this time. Was advised to call as needed for future problems. Please advise if other recommendation. Allergies As of Date: 06/09/2023 Noted Allergy Reaction ZOMETA (ZOLEDRONIC ACID) 05/13/2022 14 - Other: See Comments Comments: Joint tenderness AND soreness, difficulty breathing due to severe pain Date Reviewed: 06/02/2023 Reviewed by: Kimi Talamantes RN - Fully Assessed Reason for Visit: Patient Update [1234] Prescriptions as of 06/10/2023 - meloxicam (MOBIC) 15 mg tablet Take 1 tablet by mouth once daily. - exemestane (AROMASIN) 25 mg tablet take 1 tablet once daily - venlafaxine ER (EFFEXOR XR) 150 mg 24 hr capsule TAKE 1 CAPSULE BY MOUTH ONCE DAILY - calcium carbonate/vitamin D3 (CALTRATE 600 + D ORAL) Take 1 tablet by mouth once daily. - cyclobenzaprine (FLEXERIL) 10 mg tablet Take 0.5-1 tablets by mouth three times daily as needed for muscle spasm. - omeprazole (PRILOSEC) 20 mg capsule Take 20 mg by mouth once daily. - MULTI-VITAMIN ORAL Take 1 tablet by mouth once daily. - fluticasone (FLONASE) 50 mcg/actuation nasal spray Use 2 Sprays in each nostril once daily. Rinse mouth after use. 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/27/2021 Family history of breast cancer [Z80.3] 09/27/2021 Invasive ductal carcinoma of breast, right (HCC*10/04/2021 History of COVID-19 [Z86.16] 09/11/2021 GERD (gastroesophageal reflux disease) [K21.9] Mood disorder (HCC) [F39] Obese [E66.9] Obesity, Class I, BMI 30-34.9 [E66.9] 10/07/2021 Other chest pain [R07.89] 11/07/2021 Low TSH level [R79.89] 07/11/2022 Adrenal nodule (HCC) [E27.8] 02/28/2023 Encounter Status:Closed by MARY MOSES on 06/10/23 [facility] 06-03-2023 CNPN Telephone (PREANME) REBECA WILSON ([id number]) 1965 F Date Time Provider Department 06/03/23 LANDY SCHNEIDER PREAN During your visit today, we recorded the following information about you: Allergies As of Date: 06/03/2023 Noted Allergy Reaction ZOMETA (ZOLEDRONIC ACID) 05/13/2022 14 - Other: See Comments Comments: Joint tenderness AND soreness, difficulty breathing due to severe pain Date Reviewed: 06/02/2023 Reviewed by: Kimi Talamantes, VIOLETTE - Fully Assessed Reason for Visit: Preparations For Surgery [898] Cmt: Pre-op Instructions Prescriptions as of 06/03/2023 - meloxicam (MOBIC) 15 mg tablet Take 1 tablet by mouth once daily. - exemestane (AROMASIN) 25 mg tablet take 1 tablet once daily - venlafaxine ER (EFFEXOR XR) 150 mg 24 hr capsule TAKE 1 CAPSULE BY MOUTH ONCE DAILY - calcium carbonate/vitamin D3 (CALTRATE 600 + D ORAL) Take 1 tablet by mouth once daily. - cyclobenzaprine (FLEXERIL) 10 mg tablet Take 0.5-1 tablets by mouth three times daily as needed for muscle spasm. - omeprazole (PRILOSEC) 20 mg capsule Take 20 mg by mouth once daily. - MULTI-VITAMIN ORAL Take 1 tablet by mouth once daily. - fluticasone (FLONASE) 50 mcg/actuation nasal spray Use 2 Sprays in each nostril once daily. Rinse mouth after use. 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/27/2021 Family history of breast cancer [Z80.3] 09/27/2021 Invasive ductal carcinoma of breast, right (HCC*10/04/2021 History of COVID-19 [Z86.16] 09/11/2021 GERD (gastroesophageal reflux disease) [K21.9] Mood disorder (HCC) [F39] Obese [E66.9] Obesity, Class I, BMI 30-34.9 [E66.9] 10/07/2021 Other chest pain [R07.89] 11/07/2021 Low TSH level [R79.89] 07/11/2022 Adrenal nodule (HCC) [E27.8] 02/28/2023 Encounter Status:Closed by VARSHA REYES on 06/03/23 [facility] Office Visit (GENSWS ) REBECA WILSON ([id number]) 1965 F Date Time Provider Department 06/02/23 2:00 PM LANDY SCHNEIDER During your visit today, we recorded the following information about you: Temperature Pulse Blood pressure Weight 98.2 degrees 91/minute 124/74 96.3 kg Height 1.676 m Kimi Talamantes RN 06/02/2023 2:29 PM Addendum REVIEW OF SYSTEMS: General: The patient denies fatigue, denies weight loss, NOTES weight gain, denies feeling hot, and denies feelings of cold. Eyes: The patient denies glaucoma, denies eye injury/surgery, does wear glasses or contacts. Ear/Nose/Throat: The patient NOTES allergies, denies hayfever, denies ear infections, and denies bloody noses. Cardiovascular: The patient denies chest pain, denies heart disease, denies high blood pressure,denies cardiac stent, denies prior heart attack, denies irregular heart beat, denies high cholesterol, denies poor circulation, denies heart failure, other cardiac issues, denies claudication, denies cold feet, denies peripheral arterial stent. Respiratory: The patient denies tuberculosis, denies pneumonia, denies frequent cough, denies pulmonary embolism, denies shortness of breath, and denies coughing up blood. Gastrointestinal: The patient NOTES difficulty swallowing, NOTES acid reflux, denies ulcers, denies vomiting, denies jaundice/hepatitis, denies gallbladder problems, denies black or tarry stools, denies hemorrhoids, denies bleeding from rectum, denies diverticulitis, denies constipation, denies diarrhea, denies loss of stool control, and denies hernias. Kidney/Bladder: The patient denies kidney stones, NOTES urine infections, and denies bloody urine. Skin: The patient denies a history of skin cancer, denies bleeding/changing moles, and denies a history of skin rash. Neurologic: The patient denies a history of epilepsy/convulsions, denies headaches, denies head/spinal injuries, and denies stroke/TIA. Psychiatric: The patient denies psychiatric medications, NOTES depression, and denies voices, denies substance abuse. Endocrine: The patient NOTESthyroid disorders, denies diabetes, and denies hormonal problems. Hematologic: The patient denies a history of bruising, denies bleeding, and denies anemia, denies blood clots. Infections: The patient denies a history of measles and mumps, denies rheumatic fever, and denies sexually transmitted diseases. Musculoskeletal: The patient NOTES back pain/injury, denies back problems, denies sciatica, NOTES knee/foot trouble, NOTES arthritis, or denies gout. When was patient's last Mammogram screening? 04/23/2023 Last Colonoscopy: 01/31/2020 VIOLETTE Avilez Richard T, MD 06/02/2023 6:40 PM Signed HISTORY AND PHYSICAL Rebeca Wilson 1965 REFERRING PHYSICIAN: Nahun Zavaleta DO CHIEF COMPLAINT: Consult (Epigastric pain) HPI: Rebeca is a 57 year old female with a complaint of what she describes as reflux and epigastric pain symptoms. Patient notes some reflux. She was started on [id number] Prilosec 2 tablets a day and notes improvement in her reflux symptoms. The patient also notes discomfort in her supraumbilical area. She assumed this was her stomach. She does note a tender area in the area of the supraumbilical epigastrium The patient had CT scan performed at [facility]. This demonstrated a very small break in the fascial location but no obvious hernia. The patient denies incisions in that region. The patient notes no symptoms of bowel obstruction and denies nausea or vomiting. The patient was seen by Lorri Rodriguez in hematology oncology office who referred the patient for likely reflux/GERD symptoms. Rebeca was referred for evaluation and treatment. Underwent colonoscopy on January 31, 2020 with a second-degree family history of colon cancer. Her colonoscopy was unremarkable but due to a strong family history of malignancy we recommended 5-year follow-up. The patient is being seen by me today at the request of Dr. Akira Pierre MD for my opinion and advice regarding reflux and epigastric pain. 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 exemestane (AROMASIN) 25 mg tablet take 1 tablet once daily venlafaxine ER (more content not included)... Normal [facility] 06-02-2023 [facility] Telephone (Adb[employer]) REBECA WILSON ([id number]) 1965 F Date Time Provider Department 06/02/23 LANDY SCHNEIDER [facility] During your visit today, we recorded the following information about you: Lorri Peng 06/02/2023 4:02 PM Signed 06/11/2023 LAP HERNIA REPAIR MEJIA Allergies As of Date: 06/02/2023 Noted Allergy Reaction ZOMETA (ZOLEDRONIC ACID) 05/13/2022 14 - Other: See Comments Comments: Joint tenderness AND soreness, difficulty breathing due to severe pain Date Reviewed: 06/02/2023 Reviewed by: Kimi Talamantes, VIOLETTE - Fully Assessed Reason for Visit: 06/11/2023 LAP HERNIA REPAIR MEJIA [Other] Prescriptions as of 01/12/2024 - meloxicam (MOBIC) 15 mg tablet Take 1 tablet by mouth once daily. - exemestane (AROMASIN) 25 mg tablet Take 1 tablet by mouth every afternoon. - venlafaxine ER (EFFEXOR XR) 150 mg 24 hr capsule take 1 capsule by mouth once daily - calcium carbonate/vitamin D3 (CALTRATE 600 + D ORAL) Take 1 tablet by mouth once daily. - cyclobenzaprine (FLEXERIL) 10 mg tablet Take 0.5-1 tablets by mouth three times daily as needed for muscle spasm. - omeprazole (PRILOSEC) 20 mg capsule Take 20 mg by mouth once daily. - MULTI-VITAMIN ORAL Take 1 tablet by mouth once daily. - fluticasone (FLONASE) 50 mcg/actuation nasal spray Use 2 Sprays in each nostril once daily. Rinse mouth after use. 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/27/2021 Family history of breast cancer [Z80.3] 09/27/2021 Invasive ductal carcinoma of breast, right (HCC*10/04/2021 History of COVID-19 [Z86.16] 09/11/2021 GERD (gastroesophageal reflux disease) [K21.9] Mood disorder (HCC) [F39] Obese [E66.9] Obesity, Class I, BMI 30-34.9 [E66.811] 10/07/2021 Other chest pain [R07.89] 11/07/2021 Low TSH level [R79.89] 07/11/2022 Adrenal nodule (HCC) [E27.9] 02/28/2023 Encounter Status:Closed by JOSE [facility]ERGMAN [facility]12/[facility] (LEANDRO) REBECA WILSON ([id number]) 1965 F Date Time Provider Department 05/27/23 YENNY POSADAS During your visit today, we recorded the following information about you: Yenny Posadas RN 05/27/2023 1:22 PM Signed Left patient a voicemail about her CT results that were already reviewed by Meghann. Yenny Posadas RN Allergies As of Date: 05/27/2023 Noted Allergy Reaction ZOMETA (ZOLEDRONIC ACID) 05/13/2022 14 - Other: See Comments Comments: Joint tenderness AND soreness, difficulty breathing due to severe pain Date Reviewed: 05/22/2023 Reviewed by: Aleida Rodriguez - Fully Assessed Reason for Visit: Patient Question [5387] Prescriptions as of 05/27/2023 - exemestane (AROMASIN) 25 mg tablet take 1 tablet once daily - meloxicam (MOBIC) 15 mg tablet take 1 tablet by mouth every day - venlafaxine ER (EFFEXOR XR) 150 mg 24 hr capsule TAKE 1 CAPSULE BY MOUTH ONCE DAILY - calcium carbonate/vitamin D3 (CALTRATE 600 + D ORAL) Take 1 tablet by mouth once daily. - cyclobenzaprine (FLEXERIL) 10 mg tablet Take 0.5-1 tablets by mouth three times daily as needed for muscle spasm. - omeprazole (PRILOSEC) 20 mg capsule Take 20 mg by mouth once daily. - MULTI-VITAMIN ORAL Take 1 tablet by mouth once daily. - fluticasone (FLONASE) 50 mcg/actuation nasal spray Use 2 Sprays in each nostril once daily. Rinse mouth after use. 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*09/27/2021 Family history of breast cancer [Z80.3] 09/27/2021 Invasive ductal carcinoma of breast, right (HCC*10/04/2021 History of COVID-19 [Z86.16] 09/11/2021 GERD (gastroesophageal reflux disease) [K21.9] Mood disorder (HCC) [F39] Obese [E66.9] Obesity, Class I, BMI 30-34.9 [E66.9] 10/07/2021 Other chest pain [R07.89] 11/07/2021 Low TSH level [R79.89] 07/11/2022 Adrenal nodule (HCC) [E27.8] 02/28/2023 Encounter Status:Closed by YENNY POSADAS on 05/27/23 Normal [facility] DBT Breast - bilateral scree ningon 04-23-2023 [facility] US THYROID/PARATHYROIDon [facility] THYROID STIMULATING IMMUNOGL OBULIN BLOODon 08-20-2022 Thyroid stimulating immunoglobulins actual/normal (S) [Relative mass conc] <0.55 IU/L [facility] TSI Qualitative Negative Negative [facility] T3 FREE BLDon 08-19-2022 Free T3 [Mass/Vol] 3.4 pg/mL 2.3 - 4.1 pg/mL [facility] T4 FREE/FREE THYROXon 2022 Free T4 [Mass/Vol] 1.2 ng/dL 0.9 - 1.7 ng/dL [facility] TSH BLDon 08-19-2022 TSH Qn 0.057 m[IU]/L Low 0.270 - 4.200 mIU/L [facility] NM THY UPTAKE AND SCANon NM THY UPTAKE AND SCAN * * *Final Report* * * * * * SEE BOTTOM OF REPORT FOR ADDENDED TEXT * * * DATE OF EXAM: Aug 06 2022 8:58AM [facility]VN 0040 - NM THY UPTAKE AND SCAN / PROCEDURE REASON: multiple diagnoses * * * * Physician Interpretation * * * * * * * * * * * * ORIGINAL REPORT * * * * * * * * I-123 NECK UPTAKE AND THYROID SCAN: HISTORY: Enlarging left inferior thyroid nodule with internal color Doppler flow. Suppressed TSH, normal T3 and T4. TECHNIQUE: 241 microcuries 123-I sodium iodide orally. COMPARISON: None CORRELATION: Thyroid ultrasound 06/26/2022 RESULT: 4-hour neck uptake is 2.4% (normal range 5-15%). 24-hour neck uptake is 3.9% (normal range 10-25%). Planar images demonstrate diffusely decreased uptake in the bilateral lobes without focal increasing diffuse uptake corresponding to the left lower pole nodule, perhaps slightly decreased uptake IMPRESSION: Decrease 24-hour uptake of 3.9% images secondary to thyroiditis, thyrotoxicosis factitia, abdomen contamination, or less likely, struma ovarii. The left lower pole thyroid nodule may be secondary to functioning thyroid tissue/adenoma, although FNA is recommended. * * * * * * * * ADDENDUM #1 * * * * * * * * CLARIFICATION: IMPRESSION: Decrease 24-hour uptake of 3.9% images secondary to thyroiditis, thyrotoxicosis factitia, IODINE contamination, or less likely, struma ovarii. The left lower pole thyroid nodule may be secondary to NONFUNCTIONING thyroid tissue/adenoma, FNA is recommended. COMMUNICATION: Communicated with the requesting clinical service on 09/03/2022 12:42 PM via verbal communication. Fish Processing Supervisor: PSCB Transcribe Date/Time: Sep 03 2022 12:40P Dictated by : PAM HOGAN MD This examination was interpreted and the report reviewed and electronically signed by: PAM HOGAN MD on Aug 06 2022 10:38PM EST This document has been addended by: PAM HOGAN MD on Sep 03 2022 12:42PM EST [id number] Normal [facility] US THYROID/PARATHYROIDon [facility] CBC W Auto Differential pane l (Bld)on 06-20-2022 Basophils (Bld) [#/Vol] 0.05 10*3/uL <0.11 k/uL [facility] Basophils/100 WBC (Bld) 0.7 % [facility] Differential cell count method Nom (Bld) Auto [facility] Eosinophils (Bld) [#/Vol] 0.15 10*3/uL <0.46 k/uL [facility] Eosinophils/100 WBC (Bld) 2.2 % [facility] Erythrocyte distribution width (RBC) [Ratio] 12.8 % 11.5 - 15.0 % [facility] Hematocrit (Bld) [Volume fraction] 40.1 % 36.0 - 46.0 % [facility] Hemoglobin (Bld) [Mass/Vol] 12.9 g/dL 11.5 - 15.5 g/dL [facility] Immature granulocytes (Bld) [#/Vol] 0.08 10*3/uL <0.10 k/uL [facility] Immature granulocytes/100 WBC (Bld) 1.2 % [facility] Lymphocytes (Bld) [#/Vol] 2.59 10*3/uL 1.00 - 4.00 k/uL [facility] Lymphocytes/100 WBC (Bld) 38.4 % [facility] MCH (RBC) [Entitic mass] 29.6 pg 26.0 - 34.0 pg [facility] MCHC (RBC) [Mass/Vol] 32.2 g/dL 30.5 - 36.0 g/dL [facility] MCV (RBC) [Entitic vol] 92.0 fL 80.0 - 100.0 fL [facility] Monocytes (Bld) [#/Vol] 0.44 10*3/uL <0.87 k/uL [facility] Monocytes/100 WBC (Bld) 6.5 % [facility] Neutrophils (Bld) [#/Vol] 3.43 10*3/uL 1.45 - 7.50 k/uL [facility] Neutrophils/100 WBC (Bld) 51.0 % [facility] Nucleated RBC (Bld) [#/Vol] <0.01 k/uL [facility] Nucleated RBC/100 WBC (Bld) [Ratio] 0.0 /100 WBC [facility] Platelet mean volume (Bld) [Entitic vol] 9.5 fL 9.0 - 12.7 fL [facility] Platelets (Bld) [#/Vol] 510 10*3/uL High 150 - 400 k/uL [facility] RBC (Bld) [#/Vol] 4.36 10*6/uL 3.90 - 5.2 0 m/uL [facility] WBC (Bld) [#/Vol] 6.74 10*3/uL 3.70 - 11. 00 k/uL [facility] Comprehensive metabolic 2000 panelon 06-20-2022 Albumin [Mass/Vol] 4.4 g/dL 3.9 - 4.9 g/dL [facility] ALP [Catalytic activity/Vol] 66 U/L 34 - 123 U/L [facility] ALT [Catalytic activity/Vol] 22 U/L 7 - 38 U/L [facility] Anion gap [Moles/Vol] 10 mmol/L 9 - 18 mmol/L [facility] AST [Catalytic activity/Vol] 19 U/L 13 - 35 U/L [facility] Bilirubin [Mass/Vol] 0.4 mg/dL 0.2 - 1 .3 mg/dL [facility] Calcium [Mass/Vol] 9.6 mg/dL 8.5 - 10. 2 mg/dL [facility] Chloride [Moles/Vol] 102 mmol/L 97 - 10 5 mmol/L [facility] CO2 [Moles/Vol] 28 mmol/L 22 - 30 mmol/L [facility] Creatinine [Mass/Vol] 0.74 mg/dL 0.58 - 0.96 mg/dL [facility] Estimated Glomerular Filtration Rate 95 mL/min/1.73m >=60 mL/min/1.73m [facility] Glucose [Mass/Vol] 99 mg/dL 74 - 99 mg/dL [facility] Potassium [Moles/Vol] 4.2 mmol/L 3.7 - 5.1 mmol/L [facility] Protein [Mass/Vol] 7.5 g/dL 6.3 - 8.0 g/dL [facility] Sodium [Moles/Vol] 140 mmol/L 136 - 144 mmol/L [facility] Urea nitrogen [Mass/Vol] 20 mg/dL 7 - 21 mg/dL [facility] TSH BLDon 06-20-2022 TSH Qn 0.051 m[IU]/L Low 0.270 - 4.200 mIU/L [facility] Absolute lymphocyte countOrd ered By: Dr. Flanagan on 05-06-2022 Lymphocytes Auto (Unsp spec) [#/Vol] 0.34 10*3/uL 0.83-4.51 [facility] Basophil percentageOrdered B y: Dr. Flanagan on 05-06-2022 Basophils/100 WBC (Bld) 0.1 % 0-1 [facility] Chloride [Moles/Vol] 109 mmol/L 98-107 [facility] Eosinophils/100 WBC (Bld) 0.0 % 0-5 [facility] Glucose [Mass/Vol] 129 mg/dL 74-106 [facility] Comment on above: Fasting Glucose resu lt greater than or equal to 126 mg/dL suggests DIABETES MELLITUS per A.D.A. criteria. Neutrophils (Bld) [#/Vol] 16.7 10*3/uL 2.0-7.7 [facility] Neutrophils/100 WBC (Bld) 95.6 % 47-70 [facility] Potassium [Moles/Vol] 3.6 mmol/L 3.5-5.1 [facility] Sodium [Moles/Vol] 142 mmol/L 136-145 [facility] WBC (Bld) [#/Vol] 17.5 10*3/uL 4.4-11.0 [facility] Blood erythrocytes count (nu mber/volume)Ordered By: Dr. Flanagan on 05-06-2022 RBC (Bld) [#/Vol] 3.78 10*6/uL 4.2-5.4 [facility] Blood hemoglobin measurement (mass/volume)Ordered By: Dr. Flanagan on 05-06-2022 Hemoglobin (Bld) [Mass/Vol] 11.2 g/dL 12.0-15.0 [facility] Blood lymphocytes/100 leukoc ytesOrdered By: Dr. Flanagan on 05-06-2022 Lymphocytes/100 WBC (Bld) 1.9 % 19-41 [facility] Blood manual differential co mment interpretation (narrative result)Ordered By: Dr. Flanagan on 05-06-2022 Manual differential comment Riki (Bld) [Interp] SCANNED [facility] Blood monocytes/100 leukocyt esOrdered By: Dr. Flanagan on 05-06-2022 Monocytes/100 WBC (Bld) 1.8 % 0-10 [facility] Blood platelet mean volumeOr dered By: Dr. Flanagan on 05-06-2022 Platelet mean volume (Bld) [Entitic vol] 9.0 fL 6.2-12.0 [facility] Determination of erythrocyte mean corpuscular volume (MCV)Ordered By: Dr. Flanagan on 05-06-2022 MCV (RBC) [Entitic vol] 92.6 fL 81-99 [facility] Hematocrit Auto (Bld) [Volum e fraction]Ordered By: Dr. Flanagan on 05-06-2022 Hematocrit (Bld) [Volume fraction] 35.0 % 37-47 [facility] Laboratory - Chemistry and C hemistry - challengeOrdered By: Dr. Flanagan on 05-06-2022 CO2 [Moles/Vol] 25.0 mmol/L 21.0-32.0 [facility] Urea nitrogen/Creatinine [Mass ratio] 21.1 mg/mg 10-20 [facility] Laboratory - Hematology and Cell countsOrdered By: Dr. Flanagan on 05-06-2022 Erythrocyte distribution width (RBC) [Entitic vol] 43.4 fL 35.1-43.9 [facility] Erythrocyte distribution width (RBC) [Ratio] 12.8 % 11.6-14.6 [facility] Immature granulocytes/100 WBC (Bld) 0.600 % 0.0-0.9 [facility] Comment on above: IG% - Immature Granu locytes (promyelocytes, myelocytes and metamyelocytes) > 1% indicates that a LEFT SHIFT is Present. MCH (RBC) [Entitic mass] 29.6 pg 27.0-32.0 [facility] Nucleated RBC/100 WBC (Bld) [Ratio] 0 % 0-5 [facility] MCHC Auto (RBC) [Mass/Vol]Or dered By: Dr. Flanagan on 05-06-2022 MCHC (RBC) [Mass/Vol] 32.0 g/dL 32-36 [facility] No Panel InformationOrdered By: Dr. Flanagan on 05-06-2022 Estimated Creatinine Clearance Calc 65.34 ml/min [facility] Estimated GFR (MDRD) Amer 83 mL/min >60 [facility] Comment on above: GFR Calc Estimated GFR (MDRD) Non-Af Amer 69 mL/min >60 [facility] Comment on above: Non- GFR Calc Troponin I High Sensitivity 4 pg/mL 3.0-54.0 [facility] Comment on above: Please Note: New Marcio t Units and Gender Specific Reference Ranges. For more information see Policy Stat Procedure [place] High Sensitivity Troponin (TNIH) and attachments. Platelets bldOrdered By: Dr. Flanagan on 05-06-2022 Platelets (Bld) [#/Vol] 369 10*3/uL 150-450 [facility] Serum or plasma calcium fawad urement (mass/volume)Ordered By: Dr. Flanagan on 05-06-2022 Calcium [Mass/Vol] 8.3 mg/dL 8.5-10.1 [facility] Serum or plasma creatinine m easurement (mass/volume)Ordered By: Dr. Flanagan on 05-06-2022 Creatinine [Mass/Vol] 0.90 mg/dL 0.55-1.02 [facility] Comment on above: The validity of the calculated GFR & GFRAA in patients over 70 years has not been determined. Clinical correlation is essential. Serum or plasma urea nitroge n measurement (mass/volume)Ordered By: Dr. Flanagan on 05-06-2022 Urea nitrogen [Mass/Vol] 19 mg/dL 7-18 [facility] Thin prep Papanicolaou smear with manual screeningOrdered By: Dr. Flanagan on 05-06-2022 Thin prep Papanicolaou smear with manual screening 8 5-15 [facility] US Breast - right limitedon 04-25-2022 IMPRESSION: BENIGN FINDING There is no sonographic evidence of malignancy. The 1 cm x 0.2 cm x 1.3 cm normal right axillary lymph node is benign. Return to annual mammogram screening schedule is recommended. Tan Ortiz M.D. pt/morales:04/25/2022 08:17:23 Crib Pad Maker(s): RT Elliot(R)(M), [facility] Ultrasound BI-RADS: 2 Benign finding Multiple national specialty organizations have released breast cancer screening guidelines for women at average risk for developing breast cancer - guidelines that are based on both evidence and opinion, yet differ on when to start and how often to screen for breast cancer. With representation from Breast Imaging, Internal Medicine, Women's Health, Family Medicine, and Medical/Surgical Oncology, the [facility] has carefully reviewed the data and reached the following consensus: 1) All women should engage in shared decision-making with their providers to decide when to start and how often to screen; 2) All women should have the opportunity to start screening mammography at age 40; 3) For women ages 45-55, we recommend annual screening mammograms; 4) For women ages 55 and over, we support both the transition from an annual to a biennial interval if this aligns more with patient's values and preferences, or continuation with annual screening; 5) All women should discuss with their providers when to stop screening mammograms. Fish Processing Supervisor: Morales Transcribe Date/Time: Apr 25 2022 8:08A Dictated by: TAN ORTIZ MD This examination was interpreted and the report reviewed and electronically signed by: TAN ORTIZ MD on Apr 25 2022 8:17AM [facility] DIVISION OF RADIOLOGY * * *Final Report* * * DATE OF EXAM: Apr 25 2022 8:17AM [facility] 0594 - [facility] BREAST LTD RT / PROCEDURE REASON: multiple diagnoses * * * * Physician Interpretation * * * * RESULT: #[id number] - [facility] BREAST LTD RT ULTRASOUND OF RIGHT AXILLA: 04/25/2022 HISTORY: Call back/abnormal mamm: Right. RESULT: Comparison is made to exams dated: 04/21/2022 mammogram, 10/16/2020 mammogram - [facility], 12/09/2017 mammogram, 08/15/2015 mammogram, and 05/15/2014 mammogram - [facility]. Color flow and real-time ultrasound of the right axilla were performed. There is a benign 1 cm x 0.2 cm x 1.3 cm normal right axillary lymph node. This normal right axillary lymph node is hypoechoic with fatty hilum. Color flow imaging demonstrates that there is internal vascularity. There is an adjacent superior lymph node that also demonstrates normal benign morphology measuring 0.8 x 0.2 x 0.9 cm. Surgical clips are identified adjacent to the superior lymph node. DIVISION OF RADIOLOGY Provider, [facility] - 04/25/2022 * * *Final Report* * * DATE OF EXAM: Apr 25 2022 8:17AM [facility] 0594 - [facility] BREAST [facility] RT / PROCEDURE REASON: multiple diagnoses * * * * Physician Interpretation * * * * RESULT: #[id number] - [facility] BREAST [facility] RT ULTRASOUND OF RIGHT AXILLA: 04/25/2022 HISTORY: Call back/abnormal mamm: Right. RESULT: Comparison is made to exams dated: 04/21/2022 mammogram, 10/16/2020 mammogram - [facility], 12/09/2017 mammogram, 08/15/2015 mammogram, and 05/15/2014 mammogram - [facility]. Color flow and real-time ultrasound of the right axilla were performed. There is a benign 1 cm x 0.2 cm x 1.3 cm normal right axillary lymph node. This normal right axillary lymph node is hypoechoic with fatty hilum. Color flow imaging demonstrates that there is internal vascularity. There is an adjacent superior lymph node that also demonstrates normal benign morphology measuring 0.8 x 0.2 x 0.9 cm. Surgical clips are identified adjacent to the superior lymph node. IMPRESSION IMPRESSION: BENIGN FINDING There is no sonographic evidence of malignancy. The 1 cm x 0.2 cm x 1.3 cm normal right axillary lymph node is benign. Return to annual mammogram screening schedule is recommended. Tan Ortiz M.D. pt/morales:04/25/2022 08:17:23 Crib Pad Maker(s): RT Elliot(R)(M), [facility] Ultrasound BI-RADS: 2 Benign finding Multiple national specialty organizations have released breast cancer screening guidelines for women at average risk for developing breast cancer - guidelines that are based on both evidence and opinion, yet differ on when to start and how often to screen for breast cancer. With representation from Breast Imaging, Internal Medicine, Women's Health, Family Medicine, and Medical/Surgical Oncology, the [facility] has carefully reviewed the data and reached the following consensus: 1) All women should engage in shared decision-making with their providers to decide when to start and how often to screen; 2) All women should have the opportunity to start screening mammography at age 40; 3) For women ages 45-55, we recommend annual screening mammograms; 4) For women ages 55 and over, we support both the transition from an annual to a biennial interval if this aligns more with patient's values and preferences, or continuation with annual screening; 5) All women should discuss with their providers when to stop screening mammograms. Fish Processing Supervisor: Morales Transcribe Date/Time: Apr 25 2022 8:08A Dictated by: TAN ORTIZ MD This examination was interpreted and the report reviewed and electronically signed by: TAN ORTIZ MD on Apr 25 2022 8:17AM EST [facility] Radiology Study observation (narrative) [facility] US Breast - right limitedOrd ered By: [facility] Provider on 04-25-2022 [facility] HARSH SCREENING W TOMOon 04-21 [facility] CNPNon 11-22-2021 CNPN Telephone ([facility]) REBECA WILSON ([id number]) 1965 F Date Time Provider Department 11/22/21 RUPA CHACON During your visit today, we recorded the following information about you: OCTAVIA Mei 11/22/2021 2:35 PM Signed Results left on patient voicemail. Rebeca Wilson's Custom Cancer Panel through [employer] was negative for a pathogenic variant. Please see [employer] message for further discussion. OCTAVIA Mei Licensed, Certified Genetic Counselor Allergies As of Date: 11/22/2021 (No Known Allergies) Date Reviewed: 11/15/2021 Reviewed by: Caitlin Suarez MD - Fully Assessed Reason for Visit: Results [95] Cmt: Genetic testing Prescriptions as of 11/22/2021 - exemestane (AROMASIN) 25 mg tablet Take 1 tablet by mouth once daily. - meloxicam (MOBIC) 15 mg tablet Take 1 tablet by mouth once daily. - cyclobenzaprine (FLEXERIL) 10 mg tablet Take 0.5-1 tablets by mouth three times daily as needed for muscle spasm. - buPROPion SR (WELLBUTRIN SR) 150 mg 12 hr tablet Take 1 tablet by mouth twice daily. - omeprazole (PRILOSEC) 20 mg capsule Take 20 mg by mouth once daily. - MULTI-VITAMIN ORAL Take by mouth once daily. - fluticasone (FLONASE) 50 mcg/actuation nasal spray Use 2 Sprays in each nostril once daily. Rinse mouth after use. 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/2021 Family history of breast cancer [Z80.3] 09/27/2021 Invasive ductal carcinoma of breast, right (HCC*10/04/2021 History of COVID-19 [Z86.16] 09/11/2021 GERD (gastroesophageal reflux disease) [K21.9] Mood disorder (HCC) [F39] Obese [E66.9] Obesity, Class I, BMI 30-34.9 [E66.9] 10/07/2021 Other chest pain [R07.89] 11/07/2021 Encounter Status:Closed by RUPA CHACON on 11/22/21 [facility] DXA-AXIAL SKELETONon 022 [facility] MG Breast specimen - right V iewson 10-07-2021 IMPRESSION: UNI-PLAN AR RADIOGRAPH SPECIMEN IMAGING The imaged specimen includes a biopsy clip and a location device. SUMMARY: Urgent Results: The results of the specimen radiograph were discussed with Dr. Bravo in the OR on 10/07/2021. Kenyetta Trevino M.D. cp/morales:10/07/2021 11:13:32 Crib Pad Maker(s): RT Tanisha(R)(M), [facility] Multiple national specialty organizations have released breast cancer screening guidelines for women at average risk for developing breast cancer - guidelines that are based on both evidence and opinion, yet differ on when to start and how often to screen for breast cancer. With representation from Breast Imaging, Internal Medicine, Women's Health, Family Medicine, and Medical/Surgical Oncology, the [facility] has carefully reviewed the data and reached the following consensus: 1) All women should engage in shared decision-making with their providers to decide when to start and how often to screen; 2) All women should have the opportunity to start screening mammography at age 40; 3) For women ages 45-55, we recommend annual screening mammograms; 4) For women ages 55 and over, we support both the transition from an annual to a biennial interval if this aligns more with patient's values and preferences, or continuation with annual screening; 5) All women should discuss with their providers when to stop screening mammograms. Fish Processing Supervisor: Morales Transcribe Date/Time: Oct 07 2021 9:46A Dictated by: KENYETTA TREVINO MD This examination was interpreted and the report reviewed and electronically signed by: KENYETTA TREVINO MD on Oct 07 2021 11:13AM EST [email or web address] E_DIVISION OF RADIOLOGY * * *Final Report* * * DATE OF EXAM: Oct 07 2021 9:47AM [facility] 0639 - [facility] SURGICAL BREAST SPECIMEN RT / PROCEDURE REASON: multiple diagnoses * * * * Physician Interpretation * * * * RESULT: #[id number] - [facility] SURGICAL BREAST SPECIMEN RT UNI-PLANAR RADIOGRAPH SPECIMEN IMAGING RIGHT BREAST: 10/07/2021 HISTORY: Right breast specimen. No prior exams were available for correlation. A surgical specimen was imaged using uni-planar radiograph specimen imaging for the previous biopsy site located in the right breast at 1 o'clock posterior depth 3 cm from the skin. [email or web address] E_DIVISION OF RADIOLOGY Provider, [facility] - 10/07/2021 * * *Final Report* * * DATE OF EXAM: Oct 07 2021 9:47AM [facility] 0639 - [facility] SURGICAL BREAST SPECIMEN RT / PROCEDURE REASON: multiple diagnoses * * * * Physician Interpretation * * * * RESULT: #[id number] - [facility] SURGICAL BREAST SPECIMEN RT UNI-PLANAR RADIOGRAPH SPECIMEN IMAGING RIGHT BREAST: 10/07/2021 HISTORY: Right breast specimen. No prior exams were available for correlation. A surgical specimen was imaged using uni-planar radiograph specimen imaging for the previous biopsy site located in the right breast at 1 o'clock posterior depth 3 cm from the skin. IMPRESSION IMPRESSION: UNI-PLANAR RADIOGRAPH SPECIMEN IMAGING The imaged specimen includes a biopsy clip and a location device. SUMMARY: Urgent Results: The results of the specimen radiograph were discussed with Dr. Bravo in the OR on 10/07/2021. Kenyetta Trevino M.D., cp/morales:10/07/2021 11:13:32 Crib Pad Maker(s): RT Tanisha(R)(M), [facility] Multiple national specialty organizations have released breast cancer screening guidelines for women at average risk for developing breast cancer - guidelines that are based on both evidence and opinion, yet differ on when to start and how often to screen for breast cancer. With representation from Breast Imaging, Internal Medicine, Women's Health, Family Medicine, and Medical/Surgical Oncology, the [facility] has carefully reviewed the data and reached the following consensus: 1) All women should engage in shared decision-making with their providers to decide when to start and how often to screen; 2) All women should have the opportunity to start screening mammography at age 40; 3) For women ages 45-55, we recommend annual screening mammograms; 4) For women ages 55 and over, we support both the transition from an annual to a biennial interval if this aligns more with patient's values and preferences, or continuation with annual screening; 5) All women should discuss with their providers when to stop screening mammograms. Fish Processing Supervisor: Morales Transcribe Date/Time: Oct 07 2021 9:46A Dictated by: KENYETTA TREVINO MD This examination was interpreted and the report reviewed and electronically signed by: KENYETTA TREVINO MD on Oct 07 2021 11:13AM EST [facility] Radiology Study observation (narrative) [facility] NM Lymph node Viewson 2021 IMPRESSION: Right breast radiotracer injection. Fish Processing Supervisor: NAHOMI Transcribe Date/Time: Oct 07 2021 8:05A Dictated by : KENYETTA TREVINO MD This examination was interpreted and the report reviewed and electronically signed by: KENYETTA TREVINO MD on Oct 07 2021 8:07AM EST [email or web address] E_DIVISION OF RADIOLOGY * * *Final Report* * * DATE OF EXAM: Oct 07 2021 7:53AM [facility] 2190 - [place] INJ SENT NODE BREAST RT / PROCEDURE REASON: multiple diagnoses * * * * Physician Interpretation * * * * BREAST LYMPHOSCINTIGRAPHY: HISTORY: Breast cancer. TECHNIQUE: Prior to radiopharmaceutical administration, the injection site was verified with the electronic medical record and with the licensed nuclear control room operator. 474.9 microcuries of filtered technetium-99m sulfur colloid combined with 40 mg Lidocaine were injected in three aliquots into the retroareolar tissue of the right breast. RESULT: No imaging was obtained. [email or web address] E_DIVISION OF RADIOLOGY Provider, [facility] [place] - 10/07/2021 * * *Final Report* * * DATE OF EXAM: Oct 07 2021 7:53AM [facility] 2190 - NM INJ SENT NODE BREAST RT / PROCEDURE REASON: multiple diagnoses * * * * Physician Interpretation * * * * BREAST LYMPHOSCINTIGRAPHY: HISTORY: Breast cancer. TECHNIQUE: Prior to radiopharmaceutical administration, the injection site was verified with the electronic medical record and with the licensed nuclear control room operator. 474.9 microcuries of filtered technetium-99m sulfur colloid combined with 40 mg Lidocaine were injected in three aliquots into the retroareolar tissue of the right breast. RESULT: No imaging was obtained. IMPRESSION IMPRESSION: Right breast radiotracer injection. Fish Processing Supervisor: NAHOMI Transcribe Date/Time: Oct 07 2021 8:05A Dictated by : KENYETTA TREVINO MD This examination was interpreted and the report reviewed and electronically signed by: KENYETTA TREVINO MD on Oct 07 2021 8:07AM EST [facility] Radiology Study observation (narrative) [facility] NM Lymph node ViewsOrdered B y: [facility] Provider on 10-07-2021 [facility] DBT Breast - bilateral diagn ostic for implanton 10-02-2021 * * *Final Report* * * DATE OF EXAM: Oct 02 2021 2:48PM [facility] 0627 - [facility] DIAG W YANE ANSHU / PROCEDURE REASON: multiple diagnoses * * * * Physician Interpretation * * * * RESULT: #[id number] - [facility] DIAG W YANE ANSHU BILATERAL DIGITAL DIAGNOSTIC MAMMOGRAM TOMOSYNTHESIS WITH CAD: 10/02/2021 HISTORY: Post right breast reflector placement and imaging of the left breast (last screening 10/2020). RESULT: TECHNIQUE: The study was acquired using full field digital technology and interpreted from soft copy. Digital Breast Tomosynthesis (DBT) images were obtained and used to assist in the interpretation of this examination. Current study was also evaluated with a Computer Aided Detection (CAD). Comparison is made to exams dated: 08/20/2021 ultrasound biopsy, 08/20/2021 mammogram - [facility], 07/17/2021 mammogram, 07/17/2021 ultrasound, and 10/16/2020 mammogram - [facility]. The tissue of both breasts is heterogeneously dense. This may lower the sensitivity of mammography. There is no mammographic evidence of malignancy in the left breast. There is a marker clip in the appropriate position in the right breast at 1 o'clock posterior depth. This marker clip placement is at the biopsy site. ZZZ_DO_NOT_US E_DIVISION OF RADIOLOGY Provider, [facility] - 10/02/2021 * * *Final Report* * * DATE OF EXAM: Oct 02 2021 2:48PM SSW 0627 - HARSH PLATAPrashanth Zapien YANE ANSHU / PROCEDURE REASON: multiple diagnoses * * * * Physician Interpretation * * * * RESULT: #[id number] - [facility] DIAG Rupali YANE ANSHU BILATERAL DIGITAL DIAGNOSTIC MAMMOGRAM TOMOSYNTHESIS WITH CAD: 10/02/2021 HISTORY: Post right breast reflector placement and imaging of the left breast (last screening 10/2020). RESULT: TECHNIQUE: The study was acquired using full field digital technology and interpreted from soft copy. Digital Breast Tomosynthesis (DBT) images were obtained and used to assist in the interpretation of this examination. Current study was also evaluated with a Computer Aided Detection (CAD). Comparison is made to exams dated: 08/20/2021 ultrasound biopsy, 08/20/2021 mammogram - [facility], 07/17/2021 mammogram, 07/17/2021 ultrasound, and 10/16/2020 mammogram - [facility]. The tissue of both breasts is heterogeneously dense. This may lower the sensitivity of mammography. There is no mammographic evidence of malignancy in the left breast. There is a marker clip in the appropriate position in the right breast at 1 o'clock posterior depth. This marker clip placement is at the biopsy site. IMPRESSION IMPRESSION: POST PROCEDURE MAMMOGRAM FOR MARKER PLACEMENT There is no mammographic evidence of malignancy in the left breast. There was a successful marker clip placement in the right breast posterior depth. SUMMARY: The patient is under the care of Dr. Bravo. Kenyetta Trevino M.D., cp/pennancy:10/02/2021 15:30:19 Crib Pad Maker(s): RT Tanisha(R)(M), [facility] Mammogram BI-RADS: Post-procedure mammogram for marker placement Multiple national specialty organizations have released breast cancer screening guidelines for women at average risk for developing breast cancer - guidelines that are based on both evidence and opinion, yet differ on when to start and how often to screen for breast cancer. With representation from Breast Imaging, Internal Medicine, Women's Health, Family Medicine, and Medical/Surgical Oncology, the [facility] has carefully reviewed the data and reached the following consensus: 1) All women should engage in shared decision-making with their providers to decide when to start and how often to screen; 2) All women should have the opportunity to start screening mammography at age 40; 3) For women ages 45-55, we recommend annual screening mammograms; 4) For women ages 55 and over, we support both the transition from an annual to a biennial interval if this aligns more with patient's values and preferences, or continuation with annual screening; 5) All women should discuss with their providers when to stop screening mammograms. Fish Processing Supervisor: Morales Transcribe Date/Time: Oct 02 2021 2:37P Dictated by: KENYETTA TREVINO MD This examination was interpreted and the report reviewed and electronically signed by: KENYETTA TREVINO MD on Oct 02 2021 3:30PM EST [facility] Radiology Study observation (narrative) [facility] US Guidance for localization of Breast - righton 10-02-2021 IMPRESSION: INFRARED ACTIVATED ELECTROMAGNETIC REFLECTOR DEVICE PLACEMENT Infrared activated electromagnetic reflector device placement for the mass in the right breast at 1 o'clock posterior depth 3 cm from the nipple was successful with no apparent post procedure complications. A specimen radiograph is recommended. Clip placement/activation was verified with Public Relations Supervisor Check following the procedure. SUMMARY: The patient is under the care of Dr. Bravo. Kenyetta Trevino M.D., cp/morales:10/02/2021 15:21:46 Crib Pad Maker(s): RT Tanisha(R)(M), [facility] Multiple national specialty organizations have released breast cancer screening guidelines for women at average risk for developing breast cancer - guidelines that are based on both evidence and opinion, yet differ on when to start and how often to screen for breast cancer. With representation from Breast Imaging, Internal Medicine, Women's Health, Family Medicine, and Medical/Surgical Oncology, the [facility] has carefully reviewed the data and reached the following consensus: 1) All women should engage in shared decision-making with their providers to decide when to start and how often to screen; 2) All women should have the opportunity to start screening mammography at age 40; 3) For women ages 45-55, we recommend annual screening mammograms; 4) For women ages 55 and over, we support both the transition from an annual to a biennial interval if this aligns more with patient's values and preferences, or continuation with annual screening; 5) All women should discuss with their providers when to stop screening mammograms. Fish Processing Supervisor: Morales Transcribe Date/Time: Oct 02 2021 2:21P Dictated by: KENYETTA TREVINO MD This examination was interpreted and the report reviewed and electronically signed by: KENYETTA TREVINO MD on Oct 02 2021 3:21PM EST ZZZ_DO_NOT_US E_DIVISION OF RADIOLOGY * * *Final Report* * * DATE OF EXAM: Oct 02 2021 2:48PM [facility] 0600 - [facility] US LOC BREAST RT / PROCEDURE REASON: multiple diagnoses * * * * Physician Interpretation * * * * RESULT: #[id number] - [facility] US LOC BREAST RT ULTRASOUND GUIDED INFRARED ACTIVATED ELECTROMAGNETIC REFLECTOR DEVICE PLACEMENT RIGHT BREAST WITH POST MAMMOGRAPHIC AND ULTRASOUND IMAGIN10/02/2021 HISTORY: The patient presents for right ultrasound guided reflector placement as recommended from recent imaging study dated 08/20/21. Pre and post localization hard copy sonographic images were obtained. PATIENT CONSENT: A time out was performed immediately prior to procedure start with the radiology team, correctly identifying the patient name, date of , procedure, anatomy (including marking of site and side), patient position, relevant diagnostic and radiology test results, safety precautions, and procedure-specific equipment needs. The procedure was explained to the patient including the risks, benefits and alternatives. Medications and allergies were also reviewed. The risks, including but not limited to infection and bleeding, were reviewed by the performing physician and the patient agreed to undergo the procedure. The radiologist and technologist were present throughout the entire procedure. Audible Time Out Time: 1431 Procedure Start Time: 1432 Procedure Stop Time: 1436. Correlation is made to exams dated: 08/20/2021 mammogram and 08/20/2021 ultrasound biopsy - [facility]. An infrared activated electromagnetic reflector device placement using ultrasound guidance was performed for the irregular shaped mass located in the right breast at 1 o'clock posterior depth 3 cm from the nipple. This was described on the previous biopsy report. The skin was prepped in the usual manner. Local anesthetic was administered to the access site. The localization was approached from the lateral aspect. A location device was inserted into the targeted area through an introducer device under ultrasound guidance. The patient received additional local anesthetic during the procedure. A sterile dressing was applied to the access site. Post placement mammographic and ultrasound imaging demonstrates location device in the center of the targeted area. ZZZ_DO_NOT_US E_DIVISION OF RADIOLOGY Provider, [facility] - 10/02/2021 * * *Final Report* * * DATE OF EXAM: Oct 02 2021 2:48PM [facility] 0600 - [facility] US LOC BREAST RT / PROCEDURE REASON: multiple diagnoses * * * * Physician Interpretation * * * * RESULT: #[id number] - [facility] US LOC BREAST RT ULTRASOUND GUIDED INFRARED ACTIVATED ELECTROMAGNETIC REFLECTOR DEVICE PLACEMENT RIGHT BREAST WITH POST MAMMOGRAPHIC AND ULTRASOUND IMAGIN10/02/2021 HISTORY: The patient presents for right ultrasound guided reflector placement as recommended from recent imaging study dated 08/20/21. Pre and post localization hard copy sonographic images were obtained. PATIENT CONSENT: A time out was performed immediately prior to procedure start with the radiology team, correctly identifying the patient name, date of , procedure, anatomy (including marking of site and side), patient position, relevant diagnostic and radiology test results, safety precautions, and procedure-specific equipment needs. The procedure was explained to the patient including the risks, benefits and alternatives. Medications and allergies were also reviewed. The risks, including but not limited to infection and bleeding, were reviewed by the performing physician and the patient agreed to undergo the procedure. The radiologist and technologist were present throughout the entire procedure. Audible Time Out Time: 1431 Procedure Start Time: 1432 Procedure Stop Time: 1436. Correlation is made to exams dated: 08/20/2021 mammogram and 08/20/2021 ultrasound biopsy - [facility]. An infrared activated electromagnetic reflector device placement using ultrasound guidance was performed for the irregular shaped mass located in the right breast at 1 o'clock posterior depth 3 cm from the nipple. This was described on the previous biopsy report. The skin was prepped in the usual manner. Local anesthetic was administered to the access site. The localization was approached from the lateral aspect. A location device was inserted into the targeted area through an introducer device under ultrasound guidance. The patient received additional local anesthetic during the procedure. A sterile dressing was applied to the access site. Post placement mammographic and ultrasound imaging demonstrates location device in the center of the targeted area. IMPRESSION IMPRESSION: INFRARED ACTIVATED ELECTROMAGNETIC REFLECTOR DEVICE PLACEMENT Infrared activated electromagnetic reflector device placement for the mass in the right breast at 1 o'clock posterior depth 3 cm from the nipple was successful with no apparent post procedure complications. A specimen radiograph is recommended. Clip placement/activation was verified with Public Relations Supervisor Check following the procedure. SUMMARY: The patient is under the care of Dr. Bravo. Kenyetta Trevino M.D., cp/morales:10/02/2021 15:21:46 Crib Pad Maker(s): RT Tanisha(Victor M)(M), [facility] Multiple national specialty organizations have released breast cancer screening guidelines for women at average risk for developing breast cancer - guidelines that are based on both evidence and opinion, yet differ on when to start and how often to screen for breast cancer. With representation from Breast Imaging, Internal Medicine, Women's Health, Family Medicine, and Medical/Surgical Oncology, the [facility] has carefully reviewed the data and reached the following consensus: 1) All women should engage in shared decision-making with their providers to decide when to start and how often to screen; 2) All women should have the opportunity to start screening mammography at age 40; 3) For women ages 45-55, we recommend annual screening mammograms; 4) For women ages 55 and over, we support both the transition from an annual to a biennial interval if this aligns more with patient's values and preferences, or continuation with annual screening; 5) All women should discuss with their providers when to stop screening mammograms. Fish Processing Supervisor: Morales Transcribe Date/Time: Oct 02 2021 2:21P Dictated by: KENYETTA TREVINO MD This examination was interpreted and the report reviewed and electronically signed by: KENYETTA TREVINO MD on Oct 02 2021 3:21PM EST [facility] Radiology Study observation (narrative) [facility] US Guidance for localization of Breast - rightOrdered By: [facility] Provider on 10-02-2021 [facility] DIAG W YANE RTon 022 [facility] DIAG W YANE RT * * *Final Report* * * * * * SEE BOTTOM OF REPORT FOR ADDENDED TEXT * * * DATE OF EXAM: Aug 20 2021 10:35AM AAW 0629 - [facility] DIAG W YANE RT / PROCEDURE REASON: Abnormal mammogram * * * * Physician Interpretation * * * * FINAL REPORT #[id number] - [facility] US BIOPSY BREAST RT #[id number] - [facility] DIAG W YANE RT ULTRASOUND GUIDED BIOPSY RIGHT BREAST WITH MARKING DEVICE INSERTED AND POST DIGITAL MAMMOGRAPHIC AND ULTRASOUND IMAGIN08/20/2021 HISTORY: Abnormal Mammogram/ Ultrasound guided biopsy right breast. Abnormal Mammogram\ Post breast biopsy clip placement. PATIENT CONSENT: A time out was performed immediately prior to procedure start with the nursing and radiology team, correctly identifying the patient name, date of , procedure, anatomy (including marking of site and side), patient position, relevant diagnostic and radiology test results, safety precautions, and procedure-specific equipment needs. The procedure was explained to the patient including the risks, benefits and alternatives. Medications were also reviewed. The risks, including but not limited to infection and bleeding, were reviewed by the performing physician and the patient agreed to undergo the procedure. Dr. Gruber and a electrical design technologist were present throughout the entire procedure. Audible Time Out Time: 1010 Procedure Start Time: 1011 Procedure Stop Time: 1020 Dr. Gruber performed the entire procedure without an assistant tennis coach. PROCEDURE: Correlation is made to exams dated: 07/17/2021 ultrasound and 07/17/2021 mammogram - [facility]. An ultrasound guided biopsy using real-time ultrasound was performed for the concerning mass located in the right breast at 1 o'clock posterior depth 3 cm from the nipple. This was described on the previous mammography and ultrasound reports. The skin was prepped in the usual manner. Local anesthetic was administered to the access site. A skin darcy was made in the breast. The abnormality was approached from the caudocranial aspect. A 14 gauge biopsy needle was placed adjacent to the abnormality under ultrasound guidance. Once the needle was documented to be in the correct location, three cores were obtained using a BARD biopsy device. A ribbon clip was inserted into the biopsy cavity. A skin closure strip and a sterile dressing were applied to the access site. Post procedure digital mammographic and ultrasound imaging demonstrates the location device at the targeted area. The specimens were sent to the laboratory for pathological analysis. IMPRESSION: ULTRASOUND GUIDED BIOPSY MALIGNANT Ultrasound guided biopsy of the mass in the right breast at 1 o'clock posterior depth 3 cm from the nipple was successful with no apparent post procedure complications. Pathology indicates malignant invasive ductal carcinoma (ID). Pathology results are concordant with imaging findings. A surgical consultation is recommended. SUMMARY: Pathology results are as follows: FINAL DIAGNOSIS A. Breast, right, 1:00, 3 cm from nipple, core biopsy: - Invasive mammary carcinoma, provisional histologic grade 2 The patient is under the care of Dr. Myers for the above concordant biopsy results. [place] villa/morales:08/28/2021 16:17:05 Crib Pad Maker(s): Bonnie Sagastume R.D.M.S., [facility]; RT Demi(R)(M), [facility] [place] Multiple national specialty organizations have released breast cancer screening guidelines for women at average risk for developing breast cancer - guidelines that are based on both evidence and opinion, yet differ on when to start and how often to screen for breast cancer. With representation from Breast Imaging, Internal Medicine, Women's Health, Family Medicine, and Medical/Surgical Oncology, the [facility] has carefully reviewed the data and reached the following consensus: 1) All women should engage in shared decision-making with their providers to decide when to start and how often to screen; 2) All women should have the opportunity to start screening mammography at age 40; 3) For women ages 45-55, we recommend annual screening mammograms; 4) For women ages 55 and over, we support both the transition from an annual to a biennial interval if this aligns more with patient's values and preferences, or continuation with annual screening; 5) All women should discuss with their providers when to stop screening mammograms. Fish Processing Supervisor: Morales Transcribe Date/Time: Aug 20 2021 9:36A Dictated by : LOURDES GRUBER MD This examination was interpreted and the report reviewed and electronically signed by: LOURDES GRUBER MD on Aug 20 2021 12:38PM EST This document has been addended by: LOURDES GRUBER MD on Aug 28 2021 4:17PM EST [id number] [facility] US BIOPSY BREAST RTon [facility] US BIOPSY BREAST RT * * *Final Report* * * * * * SEE BOTTOM OF REPORT FOR ADDENDED TEXT * * * DATE OF EXAM: Aug 20 2021 10:26AM [facility]W 0598 - [facility] US BIOPSY BREAST RT / PROCEDURE REASON: Abnormal mammogram * * * * Physician Interpretation * * * * FINAL REPORT #[id number] - [facility] US BIOPSY BREAST RT #[id number] - [facility] DIAG W YANE RT ULTRASOUND GUIDED BIOPSY RIGHT BREAST WITH MARKING DEVICE INSERTED AND POST DIGITAL MAMMOGRAPHIC AND ULTRASOUND IMAGIN08/20/2021 HISTORY: Abnormal Mammogram/ Ultrasound guided biopsy right breast. Abnormal Mammogram\ Post breast biopsy clip placement. PATIENT CONSENT: A time out was performed immediately prior to procedure start with the nursing and radiology team, correctly identifying the patient name, date of , procedure, anatomy (including marking of site and side), patient position, relevant diagnostic and radiology test results, safety precautions, and procedure-specific equipment needs. The procedure was explained to the patient including the risks, benefits and alternatives. Medications were also reviewed. The risks, including but not limited to infection and bleeding, were reviewed by the performing physician and the patient agreed to undergo the procedure. Dr. Gruber and a electrical design technologist were present throughout the entire procedure. Audible Time Out Time: 1010 Procedure Start Time: 1011 Procedure Stop Time: 1020 Dr. Gruber performed the entire procedure without an assistant tennis coach. PROCEDURE: Correlation is made to exams dated: 07/17/2021 ultrasound and 07/17/2021 mammogram - [facility]. An ultrasound guided biopsy using real-time ultrasound was performed for the concerning mass located in the right breast at 1 o'clock posterior depth 3 cm from the nipple. This was described on the previous mammography and ultrasound reports. The skin was prepped in the usual manner. Local anesthetic was administered to the access site. A skin darcy was made in the breast. The abnormality was approached from the caudocranial aspect. A 14 gauge biopsy needle was placed adjacent to the abnormality under ultrasound guidance. Once the needle was documented to be in the correct location, three cores were obtained using a BARD biopsy device. A ribbon clip was inserted into the biopsy cavity. A skin closure strip and a sterile dressing were applied to the access site. Post procedure digital mammographic and ultrasound imaging demonstrates the location device at the targeted area. The specimens were sent to the laboratory for pathological analysis. IMPRESSION: ULTRASOUND GUIDED BIOPSY MALIGNANT Ultrasound guided biopsy of the mass in the right breast at 1 o'clock posterior depth 3 cm from the nipple was successful with no apparent post procedure complications. Pathology indicates malignant invasive ductal carcinoma (ID). Pathology results are concordant with imaging findings. A surgical consultation is recommended. SUMMARY: Pathology results are as follows: FINAL DIAGNOSIS A. Breast, right, 1:00, 3 cm from nipple, core biopsy: - Invasive mammary carcinoma, provisional histologic grade 2 The patient is under the care of Dr. Myers for the above concordant biopsy results. [place] villa/morales:08/28/2021 16:17:05 Crib Pad Maker(s): Bonnie Sagastume R.D.M.S., [facility]; RT Demi(R)(M), [facility] Multiple national specialty organizations have released breast cancer screening guidelines for women at average risk for developing breast cancer - guidelines that are based on both evidence and opinion, yet differ on when to start and how often to screen for breast cancer. With representation from Breast Imaging, Internal Medicine, Women's Health, Family Medicine, and Medical/Surgical Oncology, the [facility] has carefully reviewed the data and reached the following consensus: 1) All women should engage in shared decision-making with their providers to decide when to start and how often to screen; 2) All women should have the opportunity to start screening mammography at age 40; 3) For women ages 45-55, we recommend annual screening mammograms; 4) For women ages 55 and over, we support both the transition from an annual to a biennial interval if this aligns more with patient's values and preferences, or continuation with annual screening; 5) All women should discuss with their providers when to stop screening mammograms. Fish Processing Supervisor: Morales Transcribe Date/Time: Aug 20 2021 9:36A Dictated by : LOURDES GRUBER MD This examination was interpreted and the report reviewed and electronically signed by: LOURDES GRUBER MD on Aug 20 2021 12:38PM EST This document has been addended by: LOURDES GRUBER MD on Aug 28 2021 4:17PM EST [id number] [facility] SURGICAL PATHOLOGYon 022 CASE REPORT [facility] Comment on above: Order Comment: Speci men Type: TISSUE SPECIMEN Ordering Facility: [facility] Address: [address] [place], [place] [id number] Result Comment: Surg ical Pathology Report Case: [id number] Authorizing Provider: Lourdes Gruber MD Collected: 08/20/2021 10:14 AM Ordering Location: [facility] Received: 08/20/2021 03:38 PM [facility] Pathologist: Jose E Gonzalez MD Specimen: BREAST CORE BIOPSY RIGHT, 1:00 3 cm FN Performed By: #### S #### [facility] CLIA [id number] [address] [place] [address] CLINICAL HISTORY Suspicious irregular mass. R/O malignancy [facility] Comment on above: Order Comment: Speci men Type: TISSUE SPECIMEN Ordering Facility: [facility] Address: [address] [place], [place] [id number] Performed By: #### S #### [facility] [facility] CLIA [id number] [address] [place] [address] DIAGNOSIS COMMENT Normal [facility] Comment on above: Order Comment: Speci men Type: TISSUE SPECIMEN Ordering Facility: [facility] Address: [address] [place], [place] [id number] Result Comment: Sect ions demonstrate an invasive carcinoma characterized by apparent rare tubule formation (3 points), moderate nuclear atypia (2 points) and low mitotic rate (1 point, 5 mitoses per 10 high-power santacruz), for a combined provisional Ephraim score of 6 (moderately differentiated, grade 2). The largest focus of invasive carcinoma is 6.5 mm. The morphologic pattern includes nests and cords, with focal apparent tubule formation, however an immunohistochemical stain for E-cadherin is negative in the invasive carcinoma; the histologic type may be better assessed on the resection specimen, though the differential includes invasive lobular carcinoma and invasive carcinoma with mixed ductal and lobular features. (The E-cadherin stain was performed at [facility] and interpreted at [facility].) There is focal lobular neoplasia (either atypical lobular hyperplasia or lobular carcinoma in situ), as demonstrated by the presence of [id number] myoepithelial cells. Immunohistochemical stains for ER and AR were performed with results in a linked report. HER-2 evaluation was performed at [facility] with results in a linked report. The case was reviewed by Dr. Tyson White, who agrees with this assessment. Laboratory Developed Test (LDT) Disclaimer: Performance characteristics of immunohistochemical, immunofluorescent and chromogenic in-situ hybridization tests have been determined by the performing laboratory within [facility]???[facility] [place] ([facility], [facility] or [facility]) in a manner consistent with CLIA requirements. One or more of these tests have not been cleared or approved by the FDA. [facility] is regulated under CLIA as qualified to perform high-complexity testing. These tests are used for clinical purposes. They should not be regarded as investigational or for research. Positive and negative controls stain appropriately. Performed By: #### S #### [facility] CLIA [id number] [address] FINAL DIAGNOSIS Normal [facility] Comment on above: Order Comment: Speci men Type: TISSUE SPECIMEN Ordering Facility: [facility] Address: [address] [place] [address] Result Comment: [place] roet, right, 1:00, 3 cm from nipple, core biopsy: - Invasive mammary carcinoma, provisional histologic grade 2, (see comment). Performed By: #### S #### [facility] CLIA [id number] [address] FINAL PERFORMING LAB Normal [facility] Comment on above: Order Comment: Speci men Type: TISSUE SPECIMEN Ordering Facility: [facility] Address: [address] [place] [address] Result Comment: Diag nostic interpretation performed at [facility], [address] [place] [address] CLIA# [id number] Transition Rn: Tyson White M.D. Performed By: #### S #### [facility] CLIA [id number] [address] [place] [address] GROSS DESCRIPTION Normal [facility] Comment on above: Order Comment: Speci men Type: TISSUE SPECIMEN Ordering Facility: [facility] Address: [address] [place] [address] Result Comment: Berto. Irma REAST CORE BIOPSY RIGHT. Received in formalin labeled as ``breast core biopsy right 1:00 3 cm FN? are 3 segments of cylindrical tissue ranging from 1.7 to 2.1 cm in length with a thickness of 0.2 cm, box and of a soft consistency. The specimen was removed from the patient at 10:14 AM on 08/21/2021. On the same day, the specimen was placed in formalin at 10:14 AM. Totally submitted in formalin in 1 cassette. Gross examination performed at [facility], [address] [place] [address] RSA August 21, 2021 8:40 AM Performed By: #### S #### [facility] CLIA [id number] [address] HARSH DIAG W YANE RTon 022 [facility] US BREAST LTD RTon 2 [facility] NOVEL CORONAVIRUS NASOPHARYN GEAL - [facility] SPECIMEN ONLYon 06-04-2020 SARS-COV-2 NOT DETECTED Normal NOT DETECTED [facility] Comment on above: Order Comment: Submi tter Name: [facility] Agent Suspected: SARS-COV-2 This test was performed using real time PCR and has been approved for the qualitative detection of SARS-CoV-2 nucleic acid. The test has been authorized by the FDA under an emergency use authorization for use by authorized laboratories. Result Comment: [facility] Negative results do not preclude SARS-CoV-2 infection and should not be used as the sole basis for treatment or other patient management decisions. Optimum specimen types and timing for peak viral levels during infections caused by SARS-CoV-2 has not been determined. The possibility of a false negative result should especially be considered if the patient's recent exposures or clinical presentation suggest that SARS-CoV-2 infection is probable, and diagnostic tests for other causes of illness (e.g., other respiratory illness) are negative. Collection of a new specimen and re-testing may be necessary if the patient is critically ill or clinically deteriorating. Performed By: #### L [id number] #### [facility] (DEFAULT) [address] [place] [address] NOVEL CORONAVIRUS NASOPHARYN GEAL - [facility] SPECIMEN ONLYon 05-21-2020 SARS-COV-2 NOT DETECTED Normal NOT DETECTED [facility] Comment on above: Order Comment: Submi tter Name: [facility] Agent Suspected: SARS-COV-2 This test was performed using real time PCR and has been approved for the qualitative detection of SARS-CoV-2 nucleic acid. The test has been authorized by the FDA under an emergency use authorization for use by authorized laboratories. Result Comment: [facility] Negative results do not preclude SARS-CoV-2 infection and should not be used as the sole basis for treatment or other patient management decisions. Optimum specimen types and timing for peak viral levels during infections caused by SARS-CoV-2 has not been determined. The possibility of a false negative result should especially be considered if the patient's recent exposures or clinical presentation suggest that SARS-CoV-2 infection is probable, and diagnostic tests for other causes of illness (e.g., other respiratory illness) are negative. Collection of a new specimen and re-testing may be necessary if the patient is critically ill or clinically deteriorating. Performed By: #### L [id number] #### [facility] (DEFAULT) [address] [place] [address] NOVEL CORONAVIRUS NASOPHARYN GEAL - [facility] SPECIMEN ONLYon 05-06-2020 SARS-COV-2 NOT DETECTED Normal NOT DETECTED [facility] Comment on above: Order Comment: Submi tter Name: [facility] Agent Suspected: SARS-COV-2 This test was performed using real time PCR and has been approved for the qualitative detection of SARS-CoV-2 nucleic acid. The test has been authorized by the FDA under an emergency use authorization for use by authorized laboratories. Result Comment: Nega tive results do not preclude SARS-CoV-2 infection and should not be used as the sole basis for treatment or other patient management decisions. Optimum specimen types and timing for peak viral levels during infections caused by SARS-CoV-2 has not been determined. The possibility of a false negative result should especially be considered if the patient's recent exposures or clinical presentation suggest that SARS-CoV-2 infection is probable, and diagnostic tests for other causes of illness (e.g., other respiratory illness) are negative. Collection of a new specimen and re-testing may be necessary if the patient is critically ill or clinically deteriorating. Performed By: #### L [id number] #### [facility] (DEFAULT) [address] [place] [address] NOVEL CORONAVIRUS NASOPHARYN GEAL - [facility] SPECIMEN ONLYon 04-23-2020 SARS-COV-2 NOT DETECTED Normal NOT DETECTED [facility] Comment on above: Order Comment: Submi tter Name: [facility] Agent Suspected: SARS-COV-2 This test was performed using real time PCR and has been approved for the qualitative detection of SARS-CoV-2 nucleic acid. The test has been authorized by the FDA under an emergency use authorization for use by authorized laboratories. Result Comment: Nega tive results do not preclude SARS-CoV-2 infection and should not be used as the sole basis for treatment or other patient management decisions. Optimum specimen types and timing for peak viral levels during infections caused by SARS-CoV-2 has not been determined. The possibility of a false negative result should especially be considered if the patient's recent exposures or clinical presentation suggest that SARS-CoV-2 infection is probable, and diagnostic tests for other causes of illness (e.g., other respiratory illness) are negative. Collection of a new specimen and re-testing may be necessary if the patient is critically ill or clinically deteriorating. Performed By: #### L [id number] #### [facility] (DEFAULT) [address] [place] [address] NOVEL CORONAVIRUS NASOPHARYN GEAL - [facility] SPECIMEN ONLYon 04-09-2020 SARS-COV-2 NOT DETECTED Normal NOT DETECTED [facility] Comment on above: Order Comment: Submi tter Name: [facility] Agent Suspected: SARS-COV-2 This test was performed using real time PCR for the qualitative detection of SARS-CoV-2 nucleic acid. The test has been reviewed by the FDA and given emergency use authorization. This test was developed and its performance characteristics determined by [facility]. This test is used for clinical purposes. It should not be regarded as investigational or for research. Result Comment: Nega tive results do not preclude SARS-CoV-2 infection and should not be used as the sole basis for treatment or other patient management decisions. Optimum specimen types and timing for peak viral levels during infections caused by SARS-CoV-2 has not been determined. The possibility of a false negative result should especially be considered if the patient's recent exposures or clinical presentation suggest that SARS-CoV-2 infection is probable, and diagnostic tests for other causes of illness (e.g., other respiratory illness) are negative. Collection of a new specimen and re-testing may be necessary if the patient is critically ill or clinically deteriorating. Performed By: #### L [id number] #### [facility] (DEFAULT) [address] [place] [address] NOVEL CORONAVIRUS NASOPHARYN GEAL - [facility] SPECIMEN ONLYon 03-27-2020 SARS-COV-2 NOT DETECTED Normal NOT DETECTED [facility] Comment on above: Order Comment: Submi tter Name: [facility] Agent Suspected: SARS-COV-2 This test was performed using real time PCR and has been approved for the qualitative detection of SARS-CoV-2 nucleic acid. The test has been authorized by the FDA under an emergency use authorization for use by authorized laboratories. Result Comment: Nega tive results do not preclude SARS-CoV-2 infection and should not be used as the sole basis for treatment or other patient management decisions. Optimum specimen types and timing for peak viral levels during infections caused by SARS-CoV-2 has not been determined. The possibility of a false negative result should especially be considered if the patient's recent exposures or clinical presentation suggest that SARS-CoV-2 infection is probable, and diagnostic tests for other causes of illness (e.g., other respiratory illness) are negative. Collection of a new specimen and re-testing may be necessary if the patient is critically ill or clinically deteriorating. Performed By: #### L [id number] #### [facility] (DEFAULT) [address] [address] NOVEL CORONAVIRUS NASOPHARYN GEAL - [facility] SPECIMEN ONLYon 03-12-2020 SARS-COV-2 NOT DETECTED Normal NOT DETECTED [facility] Comment on above: Order Comment: Submi tter Name: [facility] Agent Suspected: SARS-COV-2 This test was performed using real time PCR and has been approved for the qualitative detection of SARS-CoV-2 nucleic acid. The test has been authorized by the FDA under an emergency use authorization for use by authorized laboratories. Result Comment: Nega tive results do not preclude SARS-CoV-2 infection and should not be used as the sole basis for treatment or other patient management decisions. Optimum specimen types and timing for peak viral levels during infections caused by SARS-CoV-2 has not been determined. The possibility of a false negative result should especially be considered if the patient's recent exposures or clinical presentation suggest that SARS-CoV-2 infection is probable, and diagnostic tests for other causes of illness (e.g., other respiratory illness) are negative. Collection of a new specimen and re-testing may be necessary if the patient is critically ill or clinically deteriorating. Performed By: #### L [id number] #### [facility] (DEFAULT) [address] [place] [address] NOVEL CORONAVIRUS NASOPHARYN GEAL - [facility] SPECIMEN ONLYon 02-27-2020 SARS-COV-2 NOT DETECTED Normal NOT DETECTED [facility] Comment on above: Order Comment: Submi tter Name: [facility] Agent Suspected: SARS-COV-2 This test was performed using real time PCR for the qualitative detection of SARS-CoV-2 nucleic acid. The test has been reviewed by the FDA and given emergency use authorization. This test was developed and its performance characteristics determined by [facility]. This test is used for clinical purposes. It should not be regarded as investigational or for research. Result Comment: Nega tive results do not preclude SARS-CoV-2 infection and should not be used as the sole basis for treatment or other patient management decisions. Optimum specimen types and timing for peak viral levels during infections caused by SARS-CoV-2 has not been determined. The possibility of a false negative result should especially be considered if the patient's recent exposures or clinical presentation suggest that SARS-CoV-2 infection is probable, and diagnostic tests for other causes of illness (e.g., other respiratory illness) are negative. Collection of a new specimen and re-testing may be necessary if the patient is critically ill or clinically deteriorating. Performed By: #### L [id number] #### [facility] (DEFAULT) [address] [place] [address] NOVEL CORONAVIRUS NASOPHARYN GEAL - [facility] SPECIMEN ONLYon 02-20-2020 SARS-COV-2 NOT DETECTED Normal NOT DETECTED [facility] Comment on above: Order Comment: Submi tter Name: [facility] Agent Suspected: SARS-COV-2 This test was performed using real time PCR for the qualitative detection of SARS-CoV-2 nucleic acid. The test has been reviewed by the FDA and given emergency use authorization. This test was developed and its performance characteristics determined by [facility]. This test is used for clinical purposes. It should not be regarded as investigational or for research. Result Comment: Nega tive results do not preclude SARS-CoV-2 infection and should not be used as the sole basis for treatment or other patient management decisions. Optimum specimen types and timing for peak viral levels during infections caused by SARS-CoV-2 has not been determined. The possibility of a false negative result should especially be considered if the patient's recent exposures or clinical presentation suggest that SARS-CoV-2 infection is probable, and diagnostic tests for other causes of illness (e.g., other respiratory illness) are negative. Collection of a new specimen and re-testing may be necessary if the patient is critically ill or clinically deteriorating. Performed By: #### L [id number] #### [facility] (DEFAULT) [address] [place] [address] NOVEL CORONAVIRUS NASOPHARYN GEAL - [facility] SPECIMEN ONLYon 02-06-2020 SARS-COV-2 NOT DETECTED Normal NOT DETECTED [facility] Comment on above: Order Comment: Submi tter Name: [facility] Agent Suspected: SARS-COV-2 This test was performed using real time PCR and has been approved for the qualitative detection of SARS-CoV-2 nucleic acid. The test has been authorized by the FDA under an emergency use authorization for use by authorized laboratories. Result Comment: Nega tive results do not preclude SARS-CoV-2 infection and should not be used as the sole basis for treatment or other patient management decisions. Optimum specimen types and timing for peak viral levels during infections caused by SARS-CoV-2 has not been determined. The possibility of a false negative result should especially be considered if the patient's recent exposures or clinical presentation suggest that SARS-CoV-2 infection is probable, and diagnostic tests for other causes of illness (e.g., other respiratory illness) are negative. Collection of a new specimen and re-testing may be necessary if the patient is critically ill or clinically deteriorating. Performed By: #### L [id number] #### [facility] (DEFAULT) [address] [place] [address] NOVEL CORONAVIRUS NASOPHARYN GEAL - [facility] SPECIMEN ONLYon 01-23-2020 SARS-COV-2 NOT DETECTED Normal NOT DETECTED [facility] Comment on above: Order Comment: Submi tter Name: [facility] Agent Suspected: SARS-COV-2 This test was performed using real time PCR for the qualitative detection of SARS-CoV-2 nucleic acid. The test has been reviewed by the FDA and given emergency use authorization. This test was developed and its performance characteristics determined by [facility]. This test is used for clinical purposes. It should not be regarded as investigational or for research. Result Comment: Nega tive results do not preclude SARS-CoV-2 infection and should not be used as the sole basis for treatment or other patient management decisions. Optimum specimen types and timing for peak viral levels during infections caused by SARS-CoV-2 has not been determined. The possibility of a false negative result should especially be considered if the patient's recent exposures or clinical presentation suggest that SARS-CoV-2 infection is probable, and diagnostic tests for other causes of illness (e.g., other respiratory illness) are negative. Collection of a new specimen and re-testing may be necessary if the patient is critically ill or clinically deteriorating. Performed By: #### L [id number] #### [facility] (DEFAULT) [address] [address] NOVEL CORONAVIRUS NASOPHARYN GEAL - [facility] SPECIMEN ONLYon 01-09-2020 SARS-COV-2 NOT DETECTED Normal NOT DETECTED [facility] Comment on above: Order Comment: Submi tter Name: [facility] Agent Suspected: SARS-COV-2 This test was performed using real time PCR for the qualitative detection of SARS-CoV-2 nucleic acid. The test has been reviewed by the FDA and given emergency use authorization. This test was developed and its performance characteristics determined by [facility]. This test is used for clinical purposes. It should not be regarded as investigational or for research. Result Comment: Nega tive results do not preclude SARS-CoV-2 infection and should not be used as the sole basis for treatment or other patient management decisions. Optimum specimen types and timing for peak viral levels during infections caused by SARS-CoV-2 has not been determined. The possibility of a false negative result should especially be considered if the patient's recent exposures or clinical presentation suggest that SARS-CoV-2 infection is probable, and diagnostic tests for other causes of illness (e.g., other respiratory illness) are negative. Collection of a new specimen and re-testing may be necessary if the patient is critically ill or clinically deteriorating. Performed By: #### L [id number] #### [facility] (DEFAULT) [address] [address] NOVEL CORONAVIRUS NASOPHARYN GEAL - [facility] SPECIMEN ONLYon 10-17-2019 SARS-COV-2 NOT DETECTED Normal NOT DETECTED [facility] Comment on above: Order Comment: Submi tter Name: [facility] Agent Suspected: SARS-COV-2 This test was performed using real time PCR and has been approved for the qualitative detection of SARS-CoV-2 nucleic acid. The test has been authorized by the FDA under an emergency use authorization for use by authorized laboratories. Testing was completed on behalf of the [facility] as directed by public [employer] order for the purpose of testing for COVID-19 and related disease. Result Comment: Nega tive results do not preclude SARS-CoV-2 infection and should not be used as the sole basis for treatment or other patient management decisions. Optimum specimen types and timing for peak viral levels during infections caused by SARS-CoV-2 has not been determined. The possibility of a false negative result should especially be considered if the patient's recent exposures or clinical presentation suggest that SARS-CoV-2 infection is probable, and diagnostic tests for other causes of illness (e.g., other respiratory illness) are negative. Collection of a new specimen and re-testing may be necessary if the patient is critically ill or clinically deteriorating. Performed By: #### L [id number] #### [facility] ([facility]) [address] [place] [address] Vital Signs Date Time Vital Sign Value Performing Clinician Facility 05-23-2024 08:35-0400 Body mass index (BMI) [Ratio] 34.31 kg/m2 Stephanie Crawford APRN.BANK ANALYST Work Phone: [facility] 05-23-2024 08:35-0400 Body temperature 99.19 [degF] Stephanie Crawford APRN.BANK ANALYST Work Phone: [facility] 05-23-2024 08:35-0400 Body weight 95.7 kg Stephanie Crawford APRN.BANK ANALYST Work Phone: [facility] 05-23-2024 08:35-0400 Diastolic blood pressure 86 mm[Hg] Stephanie Crawford APRN.BANK ANALYST Work Phone: [facility] 05-23-2024 08:35-0400 Heart rate 82 /min Stephanie Crawford APRN.BANK ANALYST Work Phone: [facility] 05-23-2024 08:35-0400 SaO2% (BldA) [Mass fraction] 96 % Stephanie Crawford APRN.BANK ANALYST Work Phone: [facility] 05-23-2024 08:35-0400 Systolic blood pressure 144 mm[Hg] Stephanie Crawford PRIVATE TUTOR.BANK ANALYST Work Phone: [facility] 01-12-2024 17:05-0500 Body height 167 cm Akira Pierre MD Work Phone: [facility] 01-12-2024 17:05-0500 Body mass index (BMI) [Ratio] 34.39 kg/m2 Akira Pierre MD Work Phone: [facility] 01-12-2024 17:05-0500 Body temperature 98.91 [degF] Akira Pierre MD Work Phone: [facility] 01-12-2024 17:05-0500 Body weight 95.9 kg Akira Pierre MD Work Phone: [facility] 01-12-2024 17:05-0500 Diastolic blood pressure 82 mm[Hg] Akira Pierre MD Work Phone: [facility] 01-12-2024 17:05-0500 Heart rate 83 /min Akira Pierre MD Work Phone: [facility] 01-12-2024 17:05-0500 Respiratory rate 16 /min Akira Pierre MD Work Phone: [facility] 01-12-2024 17:05-0500 SaO2% (BldA) [Mass fraction] 98 % Akira Pierre MD Work Phone: [facility] 01-12-2024 17:05-0500 Systolic blood pressure 126 mm[Hg] Akira Pierre MD Work Phone: [facility] 11-24-2023 08:15-0400 Body mass index (BMI) [Ratio] 33.88 kg/m2 Stephanie Crawford PRIVATE TUTOR.BANK ANALYST Work Phone: [facility] 11-24-2023 08:15-0400 Body weight 95.2 kg Stephanie Crawford PRIVATE TUTOR.BANK ANALYST Work Phone: [facility] 11-24-2023 08:15-0400 Diastolic blood pressure 85 mm[Hg] Stephanie Crawford PRIVATE TUTOR.BANK ANALYST Work Phone: [facility] 11-24-2023 08:15-0400 Heart rate 82 /min Stephanie Cassidyenter PRIVATE TUTOR.BANK ANALYST Work Phone: [facility] 11-24-2023 08:15-0400 SaO2% (BldA) [Mass fraction] 96 % Stephanie Cassidyenter PRIVATE TUTOR.BANK ANALYST Work Phone: [facility] 11-24-2023 08:15-0400 Systolic blood pressure 134 mm[Hg] Stephanie Cassidyenter PRIVATE TUTOR.BANK ANALYST Work Phone: [facility] 08-24-2023 15:52-0400 Body mass index (BMI) [Ratio] 34.22 kg/m2 Nahun Carmelitai DO Work Phone: [facility] 08-24-2023 15:52-0400 Body temperature 98.4 [degF] Nahun Masci DO Work Phone: [facility] 08-24-2023 15:52-0400 Body weight 96.16 kg Nahun Masci DO Work Phone: [facility] 08-24-2023 15:52-0400 Diastolic blood pressure 79 mm[Hg] Nahun Masci DO Work Phone: [facility] 08-24-2023 15:52-0400 Heart rate 71 /min Nahun Masci DO Work Phone: [facility] 08-24-2023 15:52-0400 SaO2% (BldA) [Mass fraction] 96 % Nahun Masci DO Work Phone: [facility] 08-24-2023 15:52-0400 Systolic blood pressure 117 mm[Hg] Nahun Masci DO Work Phone: [facility] 06-02-2023 14:30-0400 Body height 167.6 cm Landy Schneider MD Work Phone: [facility] 06-02-2023 14:30-0400 Body temperature 98.2 [degF] Landy Schneider MD Work Phone: [facility] 06-02-2023 14:30-0400 Body weight 96.34 kg Landy Schneider MD Work Phone: [facility] 06-02-2023 14:30-0400 Diastolic blood pressure 74 mm[Hg] Landy Schneider MD Work Phone: [facility] 06-02-2023 14:30-0400 Heart rate 91 /min Landy Schneider MD Work Phone: [facility] 06-02-2023 14:30-0400 SaO2% (BldA) [Mass fraction] 100 % Landy Schneider MD Work Phone: [facility] 06-02-2023 14:30-0400 Systolic blood pressure 124 mm[Hg] Landy Schneider MD Work Phone: [facility] 01-06-2023 17:32-0400 Body height 167 cm Akira Pierre MD Work Phone: [facility] 01-06-2023 17:32-0400 Body temperature 97.5 [degF] Akira Pierre MD Work Phone: [facility] 01-06-2023 17:32-0400 Body weight 92.99 kg Akira Pierre MD Work Phone: [facility] 01-06-2023 17:32-0400 Diastolic blood pressure 68 mm[Hg] Akira Pierre MD Work Phone: [facility] 01-06-2023 17:32-0400 Heart rate 78 /min Akira Pierre MD Work Phone: [facility] 01-06-2023 17:32-0400 Respiratory rate 18 /min Akira Pierre MD Work Phone: [facility] 01-06-2023 17:32-0400 SaO2% (BldA) [Mass fraction] 98 % Akira Pierre MD Work Phone: [facility] 01-06-2023 17:32-0400 Systolic blood pressure 112 mm[Hg] Akira Pierre MD Work Phone: [facility] 11-21-2022 16:05-0400 Body temperature 97.9 [degF] Nahun Carmelitai DO Work Phone: [facility] 11-21-2022 16:05-0400 Body weight 91.4 kg Nahun Masci DO Work Phone: [facility] 11-21-2022 16:05-0400 Diastolic blood pressure 79 mm[Hg] Nahun Masci DO Work Phone: [facility] 11-21-2022 16:05-0400 Heart rate 68 /min Nahun Masci DO Work Phone: [facility] 11-21-2022 16:05-0400 SaO2% (BldA) [Mass fraction] 97 % Nahun Masci DO Work Phone: [facility] 11-21-2022 16:05-0400 Systolic blood pressure 117 mm[Hg] Nahun Masci DO Work Phone: [facility] 08-19-2022 15:47-0400 Body height 167.6 cm Quinton Myers MD Work Phone: [facility] 08-19-2022 15:47-0400 Body temperature 97.81 [degF] Quinton Myers MD Work Phone: [facility] 08-19-2022 15:47-0400 Body weight 90.27 kg Quinton Myers MD Work Phone: [facility] 08-19-2022 15:47-0400 Diastolic blood pressure 82 mm[Hg] Quinton Myers MD Work Phone: [facility] 08-19-2022 15:47-0400 Heart rate 87 /min Quinton Myers MD Work Phone: [facility] 08-19-2022 15:47-0400 SaO2% (BldA) [Mass fraction] 97 % Quinton Myers MD Work Phone: [facility] 08-19-2022 15:47-0400 Systolic blood pressure 130 mm[Hg] Quinton Myers MD Work Phone: [facility] 07-01-2022 08:49-0400 Body height 166.4 cm Trina Jorgensen MD Work Phone: [facility] 07-01-2022 08:49-0400 Body weight 88 kg Trina Jorgensen MD Work Phone: [facility] 07-01-2022 08:49-0400 Diastolic blood pressure 76 mm[Hg] Trina Jorgensen MD Work Phone: [facility] 07-01-2022 08:49-0400 Systolic blood pressure 122 mm[Hg] Trina Jorgensen MD Work Phone: [facility] 06-20-2022 08:55-0400 Body weight 87.09 kg Celeste Salcedo PRIVATE TUTOR.TRACK PRODUCTION ENGINEER Work Phone: [facility] 06-20-2022 08:55-0400 Diastolic blood pressure 68 mm[Hg] Celeste Salcedo PRIVATE TUTOR.TRACK PRODUCTION ENGINEER Work Phone: [facility] 06-20-2022 08:55-0400 Heart rate 72 /min Celeste Salcedo PRIVATE TUTOR.TRACK PRODUCTION ENGINEER Work Phone: [facility] 06-20-2022 08:55-0400 Respiratory rate 16 /min Celeste Salcedo PRIVATE TUTOR.TRACK PRODUCTION ENGINEER Work Phone: [facility] 06-20-2022 08:55-0400 Systolic blood pressure 112 mm[Hg] Celeste Salcedo PRIVATE TUTOR.TRACK PRODUCTION ENGINEER Work Phone: [facility] 05-13-2022 10:27-0500 Body temperature 98.4 [degF] Nahun Maei DO Work Phone: [facility] 05-13-2022 10:27-0500 Body weight 89.36 kg Nahun Carmelitai DO Work Phone: [facility] 05-13-2022 10:27-0500 Diastolic blood pressure 77 mm[Hg] Nahun Maei DO Work Phone: [facility] 05-13-2022 10:27-0500 Heart rate 75 /min Nahun Maei DO Work Phone: [facility] 05-13-2022 10:27-0500 Systolic blood pressure 128 mm[Hg] Nahun Maei DO Work Phone: [facility] 05-06-2022 15:00-0500 Diastolic blood pressure 72 mm[Hg] [facility] 05-06-2022 15:00-0500 Heart rate 103 /min [facility] 05-06-2022 15:00-0500 Respiratory rate 16 /min [facility] 05-06-2022 15:00-0500 SaO2% (BldA) [Mass fraction] 99 % [facility] 05-06-2022 15:00-0500 Systolic blood pressure 113 mm[Hg] [facility] 05-06-2022 14:55-0500 Body temperature 98 [degF] [facility] 05-06-2022 11:52-0500 Body mass index (BMI) [Ratio] 32.3 kg/m2 [facility] 05-06-2022 11:52-0500 Body weight 90.7 kg [facility] 05-06-2022 11:51-0500 Body height 167.64 cm [facility] 05-05-2022 14:24-0500 Body temperature 97.81 [degF] Treatment Wstr Work Phone: [facility] 05-05-2022 14:24-0500 Diastolic blood pressure 68 mm[Hg] Treatment Wstr Work Phone: [facility] 05-05-2022 14:24-0500 Heart rate 69 /min Treatment [facility]str Work Phone: [facility] 05-05-2022 14:24-0500 Respiratory rate 16 /min Treatment [facility]str Work Phone: [facility] 05-05-2022 14:24-0500 Systolic blood pressure 121 mm[Hg] Treatment Wstr Work Phone: [facility] 02-12-2022 14:50-0500 Body temperature 97.7 [degF] Nahun Maei DO Work Phone: [facility] 02-12-2022 14:50-0500 Body weight 90.72 kg Nahun Masci DO Work Phone: [facility] 02-12-2022 14:50-0500 Diastolic blood pressure 81 mm[Hg] Nahun Masci DO Work Phone: [facility] 02-12-2022 14:50-0500 Heart rate 69 /min Nahun Masci DO Work Phone: [facility] 02-12-2022 14:50-0500 Respiratory rate 15 /min Nahun Masci DO Work Phone: [facility] 02-12-2022 14:50-0500 SaO2% (BldA) [Mass fraction] 95 % Nahun Masci DO Work Phone: [facility] 02-12-2022 14:50-0500 Systolic blood pressure 134 mm[Hg] Nahun Masci DO Work Phone: [facility] 12-20-2021 09:22-0400 Body weight 89.36 kg Akira Pierre MD Work Phone: [facility] 12-20-2021 09:22-0400 Diastolic blood pressure 82 mm[Hg] Akira Pierre MD Work Phone: [facility] 12-20-2021 09:22-0400 Heart rate 64 /min Akira Pierre MD Work Phone: [facility] 12-20-2021 09:22-0400 SaO2% (BldA) [Mass fraction] 96 % Akira Pierre MD Work Phone: [facility] 12-20-2021 09:22-0400 Systolic blood pressure 122 mm[Hg] Akira Pierre MD Work Phone: [facility] 10-24-2021 11:20-0400 Body temperature 98.2 [degF] Caitlin Suarez MD Work Phone: [facility] 10-24-2021 11:20-0400 Body weight 89.27 kg Caitlin Suarez MD Work Phone: [facility] 10-24-2021 11:20-0400 Diastolic blood pressure 70 mm[Hg] Caitlin Suarez MD Work Phone: [facility] 10-24-2021 11:20-0400 Heart rate 76 /min Caitlin Suarez MD Work Phone: [facility] 10-24-2021 11:20-0400 Respiratory rate 16 /min Caitlin Suarez MD Work Phone: [facility] 10-24-2021 11:20-0400 SaO2% (BldA) [Mass fraction] 99 % Caitlin Suarez MD Work Phone: [facility] 10-24-2021 11:20-0400 Systolic blood pressure 120 mm[Hg] Caitlin Suarez MD Work Phone: [facility] 10-24-2021 09:56-0400 Body weight 89.81 kg Jose E Bettencourt MD Work Phone: [facility] 10-07-2021 11:45-0400 Body temperature 97.2 [degF] Amaya Lawrence DO Work Phone: [facility] 10-07-2021 11:45-0400 Diastolic blood pressure 61 mm[Hg] Amaya Lawrence DO Work Phone: [facility] 10-07-2021 11:45-0400 Heart rate 74 /min Amaya Lawrence DO Work Phone: [facility] 10-07-2021 11:45-0400 Respiratory rate 18 /min Amaya Lawrence DO Work Phone: [facility] 10-07-2021 11:45-0400 SaO2% (BldA) [Mass fraction] 94 % Amaya Lawrence DO Work Phone: [facility] 10-07-2021 11:45-0400 Systolic blood pressure 105 mm[Hg] Amaya Lawrence DO Work Phone: [facility] 10-04-2021 09:07-0400 Body height 166.4 cm Pacc 1 Work Phone: [facility] 10-04-2021 09:07-0400 Body temperature 98.01 [degF] Pacc 1 Work Phone: [facility] 10-04-2021 09:07-0400 Body weight 88.45 kg Pacc 1 Work Phone: [facility] 10-04-2021 09:07-0400 Diastolic blood pressure 82 mm[Hg] Pacc 1 Work Phone: [facility] 10-04-2021 09:07-0400 Heart rate 68 /min Pacc 1 Work Phone: [facility] 10-04-2021 09:07-0400 Respiratory rate 16 /min Pacc 1 Work Phone: [facility] 10-04-2021 09:07-0400 SaO2% (BldA) [Mass fraction] 97 % Pacc 1 Work Phone: [facility] 10-04-2021 09:07-0400 Systolic blood pressure 116 mm[Hg] Pacc 1 Work Phone: [facility] 09-26-2021 11:44-0400 Body height 166.3 cm Caitlin Suarez MD Work Phone: [facility] 09-26-2021 11:44-0400 Body temperature 97.9 [degF] Caitlin Suarez MD Work Phone: [facility] 09-26-2021 11:44-0400 Body weight 88.41 kg Caitlin Suarez MD Work Phone: [facility] 09-26-2021 11:44-0400 Diastolic blood pressure 73 mm[Hg] Caitlin Suarez MD Work Phone: [facility] 09-26-2021 11:44-0400 Heart rate 67 /min Caitlin Suarez MD Work Phone: [facility] 09-26-2021 11:44-0400 Respiratory rate 20 /min Caitlin Suarez MD Work Phone: [facility] 09-26-2021 11:44-0400 SaO2% (BldA) [Mass fraction] 97 % Caitlin Suarez MD Work Phone: [facility] 09-26-2021 11:44-0400 Systolic blood pressure 118 mm[Hg] Caitlin Suarez MD Work Phone: [facility] 09-26-2021 08:55-0400 Body height 167.6 cm Amayadaryl Bravo DO Work Phone: [facility] 09-26-2021 08:55-0400 Body weight 88 kg Amaya Lawrence DO Work Phone: [facility] 08-27-2021 15:56-0400 Body height 167.6 cm Quinton Myers MD Work Phone: [facility] 08-27-2021 15:56-0400 Body temperature 98.2 [degF] Quinton Myers MD Work Phone: [facility] 08-27-2021 15:56-0400 Body weight 89.36 kg Quinton Myers MD Work Phone: [facility] 08-27-2021 15:56-0400 Diastolic blood pressure 84 mm[Hg] Quinton Myers MD Work Phone: [facility] 08-27-2021 15:56-0400 Heart rate 104 /min Quinton Myers MD Work Phone: [facility] 08-27-2021 15:56-0400 SaO2% (BldA) [Mass fraction] 98 % Quinton Myers MD Work Phone: [facility] 08-27-2021 15:56-0400 Systolic blood pressure 146 mm[Hg] Quinton Myers MD Work Phone: [facility] 07-23-2021 08:09-0400 Body height 167.6 cm Quinton Myers MD Work Phone: [facility] 07-23-2021 08:09-0400 Body temperature 97.7 [degF] Quinton Myers MD Work Phone: [facility] 07-23-2021 08:09-0400 Body weight 89.36 kg Quinton Myers MD Work Phone: [facility] 07-23-2021 08:09-0400 Diastolic blood pressure 78 mm[Hg] Quinton Myers MD Work Phone: [facility] 07-23-2021 08:09-0400 Heart rate 105 /min Quinton Myers MD Work Phone: [facility] 07-23-2021 08:09-0400 SaO2% (BldA) [Mass fraction] 98 % Quinton Myers MD Work Phone: [facility] 07-23-2021 08:09-0400 Systolic blood pressure 122 mm[Hg] Quinton Myers MD Work Phone: [facility] 07-01-2021 09:36-0400 Body height 166.4 cm Trina Jorgensen MD Work Phone: [facility] 07-01-2021 09:36-0400 Body weight 88 kg Trina Jorgensen MD Work Phone: [facility] 07-01-2021 09:36-0400 Diastolic blood pressure 78 mm[Hg] Trina Jorgensen MD Work Phone: [facility] 07-01-2021 09:36-0400 Systolic blood pressure 122 mm[Hg] Trina Jorgensen MD Work Phone: [facility] 06-26-2021 15:04-0400 Body height 167.6 cm Edie Johnson MD Work Phone: [facility] 06-26-2021 15:04-0400 Body temperature 97.39 [degF] Edie Johnson MD Work Phone: [facility] 06-26-2021 15:04-0400 Body weight 88.45 kg Edie Johnson MD Work Phone: [facility] 06-26-2021 15:04-0400 Diastolic blood pressure 68 mm[Hg] Edie Johnson MD Work Phone: [facility] 06-26-2021 15:04-0400 Heart rate 97 /min Edie Johnson MD Work Phone: [facility] 06-26-2021 15:04-0400 SaO2% (BldA) [Mass fraction] 100 % Edie Johnson MD Work Phone: [facility] 06-26-2021 15:04-0400 Systolic blood pressure 112 mm[Hg] Edie Johnson MD Work Phone: [facility] Encounters Encounter Date Encounter Type Care Provider Facility Start: 09-30-2024 ambulatory Akira Pierre [facility] y:[facility] Start: 08-25-2024 End: 08-25-[address] Akira Pierre MD Work Phone: [facility] Work Phone: Start: 08-25-2024 End: 08-25-2024 Patient encounter procedure Maria De Jesus GASCA -MRI - [facility] Work Phone: Start: 08-25-2024 End: 08-25-2024 ambulatory Maria De Jesus Heath Facility:[facility] Start: 08-12-2024 End: 08-12-[address] Akira Pierre MD Work Phone: [facility] Work Phone: Start: 08-12-2024 End: 08-12-2024 Patient encounter procedure Maria De Jesus GASCA -Ultrasound [facility] Work Phone: Start: 08-12-2024 End: 08-12-2024 ambulatory Maria De Jesus Heath Facility:[facility] Start: 08-10-2024 End: 08-10-2024 Patient encounter procedure Maria De Jesus ARGUETAC -[facility] Work Phone: Start: 08-10-2024 End: 08-10-[address] Akira Pierre MD Work Phone: [facility] Work Phone: Start: 07-07-2024 End: 07-10-2024 ambulatory Nahun Zavaleta DO Work Phone: Hematology/Oncology Comment on above: Donate platelets? Start: 06-05-2024 End: 06-05-2024 Refill Nahun Zavaleta DO Work Phone: Hematology/Oncology Comment on above: Refill Request Start: 05-23-2024 End: 05-23-2024 Nursing evaluation of patient and report Yenny Posadas RN Hematology/Oncology Comment on above: Examination of parti cipant in clinical trial (Primary Dx); Malignant neoplasm of 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, estrogen receptor positive (HCC) Start: 05-23-2024 End: 05-23-2024 Telephone encounter Yenny Posadas RN Hematology/Oncology Start: 05-23-2024 End: 05-23-2024 ambulatory [facility] Facility:[facility] Start: 05-23-2024 End: 05-23-2024 Patient encounter procedure Yenny Posadas RN [facility] Comment on above: 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, estrogen receptor positive (HCC) (Primary Dx); Examination of participant in clinical trial Start: 04-23-2024 End: 04-25-2024 ambulatory Akira Pierre MD Work Phone: [facility] [place] Comment on above: Omeprazole Start: 04-22-2024 End: 04-22-2024 ambulatory [facility] Facility:[facility] Start: 04-22-2024 End: 04-22-2024 Patient encounter procedure Screen Wstr [facility] Start: 04-22-2024 End: 04-22-2024 Subsequent hospital visit by physician Screen Mammo [facility] Comment on above: 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, estrogen receptor positive (HCC) [C50.211, Z17.0] Start: 03-21-2024 End: 03-21-2024 Refill Akira Pierre MD Work Phone: [facility] [place] Comment on above: Refill Request Start: 02-22-2024 End: 02-22-2024 Refill Nahun Zavaleta DO Work Phone: Hematology/Oncology Comment on above: Refill Request Start: 01-12-2024 End: 01-12-2024 Patient encounter status Akira Pierre MD Work Phone: [facility] Work Phone: Start: 01-12-2024 End: 01-12-2024 Periodic preventive med est patient 40-64yrs Akira Pierre MD Work Phone: [facility] [place] Comment on above: Routine medical exam (Primary Dx); Chronic pain of both knees; Arthralgia of hands, bilateral; Allergic rhinitis due to animal hair and dander; Polyarthritis; Encounter for long-term current use of medication; Screening for depression; Encounter for screening examination for other mental health and behavioral disorders Start: 01-12-2024 End: 01-12-2024 ambulatory AKIRA PIERRE Facility:[facility] Start: 01-12-2024 Encounter for genera l adult medical examination without abnormal findings AKIRA PIERRE [facility] Start: 12-01-2023 ambulatory Health Risk Assessment Facility:[facility] Start: 11-24-2023 End: 11-25-2023 Nursing evaluation of patient and report Yenny Posadas RN Hematology/Oncology Comment on above: 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, estrogen receptor positive (HCC) (Primary Dx) Start: 11-24-2023 End: 11-24-2023 ambulatory [facility] Facility:[facility] Start: 11-24-2023 End: 11-25-2023 Patient encounter procedure Stephanie Crawford APRN.CNP Work Phone: Hematology/Oncology Comment on above: 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, estrogen receptor positive (HCC) (Primary Dx); Examination of participant in clinical trial; Encounter for screening mammogram for high-risk patient Refill Request Start: 11-07-2023 End: 11-08-2023 Refill Nahun Zavaleta DO Work Phone: Hematology/Oncology Comment on above: Refill Request Start: 08-26-2023 Telephone encounter Yenny Posadas RN Hematology/Oncology Start: 08-24-2023 End: 08-24-2023 ambulatory NAHUN ZAVALETA Facility:[facility] Start: 08-24-2023 End: 08-24-2023 Patient encounter procedure Nahun Zavaleta DO Work Phone: Hematology/Oncology Comment on above: 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, estrogen receptor positive (HCC) (Primary Dx); Examination of participant in clinical trial Start: 08-21-2023 Refill Nahun Chapman O Work Phone: Hematology/Oncology Comment on above: Refill Request Start: 08-18-2023 End: 08-18-2023 ambulatory PATRICE PALENCIA Facility:[facility] Start: 06-25-2023 End: 06-25-2023 ambulatory LANDY SCHNEIDER Facility:[facility] Start: 06-25-2023 End: 06-25-2023 Patient encounter procedure Landy Schneider MD Work Phone: General Surgery Comment on above: Ventral hernia witho ut obstruction or gangrene (Primary Dx) Start: 06-16-2023 Telephone encounter Nurse Nagy [facility] Work Phone: General Surgery Comment on above: FMLA Paperwork Start: 06-11-2023 End: 06-11-2023 ambulatory AKIRA PIERRE Facility:[facility] Start: 06-09-2023 Telephone encounter Landy Schneider MD Work Phone: General Surgery Comment on above: Patient Update Start: 06-03-2023 Telephone encounter Landy Schneider MD Work Phone: Pre Anesthesia Comment on above: Preparations For Maribel mark (Pre-op Instructions) Start: 06-02-2023 End: 06-02-2023 Patient encounter procedure Landy Schneider MD Work Phone: General Surgery Comment on above: Ventral hernia witho ut obstruction or gangrene (Primary Dx); Epigastric pain Start: 06-02-2023 End: 01-12-2024 Telephone encounter Landy Schneider MD Work Phone: General Surgery Comment on above: 06/11/2023 LAP HERNIA REPAIR MEJIA Start: 06-02-2023 End: 06-02-2023 ambulatory LANDY SCHNEIDER Facility:[facility] Start: 05-31-2023 Refill Kmiber Camp APRN.BANK ANALYST Work Phone: Internal Medicine [place] Comment on above: Refill Request Start: 05-27-2023 Telephone encounter Yenny Posadas RN Hematology/Oncology Comment on above: Patient Question Start: 05-25-2023 ambulatory Aleida Rodriguez Work Phone: Hematology/Oncology Comment on above: CT Scan Start: 05-22-2023 Nursing evaluation o f patient and report Yenny Posadas RN Hematology/Oncology Comment on above: Examination of parti cipant in clinical trial (Primary Dx) Start: 05-22-2023 End: 05-22-2023 Patient encounter procedure Aleida Rodriguez Work Phone: [facility] Start: 05-22-2023 End: 05-22-2023 ambulatory Aleida Rodriguez Work Phone: Hematology/Oncology Comment on above: 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, estrogen receptor positive (HCC) (Primary Dx); Hiatal hernia with GERD; Other specified intestinal obstruction, unspecified whether partial or complete (HCC); Nausea Start: 05-13-2023 Telephone encounter Nahun redding DO Work Phone: Hematology/Oncology Comment on above: Future Appointment Start: 04-23-2023 Documentation procedure Mammog julian Coordinator [facility] Start: 04-23-2023 Letter encounter Mammography Coordinator [facility] Department Start: 04-23-2023 End: 04-23-2023 Subsequent hospital visit by physician Screen Mammo [facility] Comment on above: 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, estrogen receptor positive (HCC) (HCC) [C50.211, Z17.0] Start: 02-13-2023 End: 02-13-2023 ambulatory Patrice Palencia MD Work Phone: Endocrinology Comment on above: Nontoxic multinodula r goiter (Primary Dx) Start: 02-13-2023 End: 02-13-2023 Telemedicine consultation with patient Patrice Palencia MD Work Phone: [facility] Start: 01-27-2023 End: 01-27-2023 Patient encounter procedure Jennifer Grossmanpster PRIVATE TUTOR.BANK ANALYST Work Phone: Pulmonary Medicine Comment on above: NO SHOW (Primary Dx) Start: 01-12-2023 ambulatory Fifi phillip PA-C Work Phone: Pulmonary Medicine Start: 01-08-2023 End: 01-08-2023 Subsequent hospital visit by physician [facility] Work Phone: Radiology Comment on above: Nontoxic multinodula r goiter [E04.2] Start: 01-06-2023 End: 01-06-2023 Patient encounter status Akira Pierre MD Work Phone: [facility] Work Phone: Start: 01-06-2023 End: 01-06-2023 Periodic preventive med est patient 40-64yrs Akira Pierre MD Work Phone: Internal Medicine [place] Comment on above: Routine medical exam (Primary Dx); Constipation, unspecified constipation type Start: 12-15-2022 End: 12-15-2022 ambulatory Patrice Palencia MD Work Phone: Endocrinology Comment on above: Nontoxic multinodula r goiter (Primary Dx) Start: 12-15-2022 End: 12-15-2022 Telemedicine consultation with patient Patrice Palencia MD Work Phone: [facility] Start: 11-24-2022 Refill Nahun Giraldo Work Phone: Hematology/Oncology Comment on above: Refill Request Start: 11-21-2022 End: 11-21-2022 ambulatory Nahun Zavaleta DO Work Phone: Hematology/Oncology Comment on above: Invasive ductal carc inoma of breast, right (HCC) (Primary Dx) Start: 11-21-2022 End: 11-21-2022 Patient encounter procedure Nahun Zavaleta DO Work Phone: [facility] Start: 11-17-2022 Chart abstracting Yenny Posadas RN Hematology/Oncology Comment on above: Research (CTD Thu BR007) Start: 11-11-2022 Telephone encounter Yenny Posadas RN Hematology/Oncology Comment on above: Appointment Start: 11-07-2022 Telephone encounter Yenny Posadas RN Hematology/Oncology Comment on above: Research (CTD) Start: 09-09-2022 Refill Kimber Camp APRN.CNP Work Phone: Internal Medicine [place] Comment on above: Refill Request Start: 09-03-2022 Telephone encounter Patrice carter MD Work Phone: Endocrinology Comment on above: Clinical Update Start: 09-02-2022 End: 09-02-2022 Nursing evaluation of patient and report Nurse [facility] Work Phone: General Surgery Comment on above: Cellulitis of chest wall (Primary Dx) Start: 08-31-2022 Refill Nahun Giraldo Work Phone: Hematology/Oncology Comment on above: Refill Request Start: 08-26-2022 End: 08-26-2022 ambulatory [facility] Work Phone: Start: 08-26-2022 End: 08-26-2022 Patient encounter procedure [facility]-Laboratory, Specimen Start: 08-19-2022 End: 08-19-2022 Patient encounter procedure Quinton Myers MD Work Phone: General Surgery Comment on above: 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); Nontoxic multinodular goiter Start: 08-18-2022 End: 08-18-2022 ambulatory Patrice Palencia MD Work Phone: Endocrinology Comment on above: Low TSH level (Prima ry Dx); Thyroid nodule Start: 08-18-2022 End: 08-18-2022 Telemedicine consultation with patient Patrice Palencia MD Work Phone: [facility] Start: 08-14-2022 Nursing evaluation o f patient and report Yenny Posadas RN Hematology/Oncology Comment on above: Examination of parti cipant in clinical trial (Primary Dx) Start: 08-14-2022 Patient encounter procedure Yenny Posadas RN Hematology/Oncology Start: 08-06-2022 ambulatory AKIRA PIERRE Facilit y:[facility] Start: 08-06-2022 End: 08-06-2022 Subsequent hospital visit by physician [facility] Comment on above: Low TSH level [R79.8 9] Start: 08-05-2022 ambulatory PATRICE PALENCIA Facility:[facility] Start: 08-05-2022 End: 08-05-2022 Subsequent hospital visit by physician [facility] Comment on above: Low TSH level [R79.8 9] Start: 07-11-2022 End: 07-11-2022 ambulatory Patrice Palencia MD Work Phone: Endocrinology Comment on above: Thyroid nodule (Prim raymond Dx); Low TSH level; Malignant neoplasm of 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, estrogen receptor positive (HCC) Start: 07-11-2022 End: 07-11-2022 Telemedicine consultation with patient Patrice Palencia MD Work Phone: [facility] Start: 07-01-2022 Telephone encounter Celeste romeo APRN.TRACK PRODUCTION ENGINEER Work Phone: Internal Medicine [place] Comment on above: Results Start: 07-01-2022 End: 07-01-2022 Patient encounter procedure Trina Jorgensen MD Work Phone: OB/Gynecology Comment on above: Encounter for gyneco logical examination (general) (routine) without abnormal findings (Primary Dx); Malignant neoplasm of 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, estrogen receptor positive (HCC) Start: 07-01-2022 End: 07-01-2022 Patient encounter status Trina Jorgensen MD Work Phone: OB/Gynecology Start: 06-26-2022 End: 06-26-2022 Subsequent hospital visit by physician [facility] Work Phone: Radiology Comment on above: Nontoxic multinodula r goiter [E04.2] Start: 06-23-2022 Telephone encounter Celeste Mary Jane romeo PRIVATE TUTOR.TRACK PRODUCTION ENGINEER Work Phone: Internal [facility] [place] Comment on above: Results Start: 06-20-2022 End: 06-20-2022 Office outpatient visit 25 minutes Celestealeisha Salcedo PRIVATE TUTOR.TRACK PRODUCTION ENGINEER Work Phone: Internal Medicine [place] Comment on above: Gastroesophageal ref lux disease, unspecified whether esophagitis present (Primary Dx); Encounter for immunization; Fatigue, unspecified type; Thyroid nodule; Nontoxic multinodular goiter; Invasive ductal carcinoma of breast, right (HCC); Mood disorder (HCC) Start: 06-07-2022 Refill Akira mercado MD Work Phone: Internal Medicine [place] Comment on above: Refill Request Start: 06-04-2022 Refill Nahun Giraldo Work Phone: Hematology/Oncology Comment on above: Refill Request Start: 06-01-2022 Refill Caitlin gipson MD Work Phone: Hematology/Oncology Comment on above: Refill Request Start: 05-13-2022 End: 05-13-2022 Nursing evaluation of patient and report Yenny Posadas RN Hematology/Oncology Comment on above: Examination of parti cipant in clinical trial (Primary Dx) Invasive ductal carc inoma of breast, right (HCC) (Primary Dx); Examination of participant in clinical trial; Rash; Persistent depressive disorder Start: 05-13-2022 End: 05-13-2022 Patient encounter procedure Yenny Posadas RN Hematology/Oncology Start: 05-13-2022 Telephone encounter Yenny Posadas RN Hematology/Oncology Comment on above: Patient Question Start: 05-07-2022 Telephone encounter Fabiola velazquez RN Work Phone: Hematology/Oncology Comment on above: Pit Manager - E D Follow Up Start: 05-06-2022 Telephone encounter Fabiola velazquez RN Work Phone: Hematology/Oncology Comment on above: Care Coordination (P ain) Start: 05-06-2022 End: 05-06-2022 Emergency department patient visit [facility]-Emergency Department Start: 05-05-2022 End: 05-05-2022 ambulatory Treatment Rm 11 Josiah [facility] Work Phone: Hematology/Oncology Comment on above: Invasive ductal carc inoma of breast, right (HCC) (Primary Dx) Start: 04-25-2022 End: 04-25-2022 Subsequent hospital visit by physician Diagnostic Mammo [facility] Comment on above: Abnormal mammogram [ R92.8] Start: 04-23-2022 End: 04-23-2022 Orders Only Amaya Bravo DO Work Phone: [facility] Comment on above: Abnormal mammogram ( Primary Dx); Personal history of breast cancer Abnormal mammogram ( Primary Dx); Invasive ductal carcinoma of breast, right (HCC) Start: 04-21-2022 End: 04-21-2022 Subsequent hospital visit by physician Screen Mammo [facility] Comment on above: Screening mammogram, encounter for [Z12.31] Start: 03-24-2022 Telephone encounter Financial Navigator Josiah Work Phone: Financial Services Comment on above: Benefits Investigati on Start: 03-18-2022 Orders Only Nahun Giraldo Work Phone: Hematology/Oncology Comment on above: 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, estrogen receptor positive (HCC) (Primary Dx); Vitamin D deficiency dental clearance Start: 02-12-2022 Chart abstracting Yenny Posadas RN Hematology/Oncology Comment on above: Clinical TrialDraw - BR007 Start: 02-12-2022 Nursing evaluation o f patient and report Yenny Posadas RN Hematology/Oncology Comment on above: Examination of parti cipant in clinical trial (Primary Dx) Start: 02-12-2022 End: 02-12-2022 Patient encounter procedure Nahun Zavaleta DO Work Phone: Hematology/Oncology Comment on above: 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, estrogen receptor positive (HCC) (Primary Dx); Examination of participant in clinical trial; Vitamin D deficiency Start: 01-28-2022 Telephone encounter Nahun Tristan vahid DO Work Phone: Hematology/Oncology Comment on above: Future Appointment ( /) Start: 12-20-2021 End: 12-20-2021 Patient encounter status Akira Pierre MD Work Phone: Internal Medicine [place] Start: 12-20-2021 End: 12-20-2021 Periodic preventive med est patient 40-64yrs Akira Pierre MD Work Phone: Internal Medicine [place] Comment on above: Routine medical exam (Primary Dx); Back pain with radiation; Pelvic pain in female Start: 12-02-2021 Telephone encounter Yenny Posadas RN Hematology/Oncology Comment on above: Patient Update Start: 11-25-2021 Chart abstracting Yenny Posadas RN Hematology/Oncology Comment on above: Clinical Trial Draw - BR007 Start: 11-22-2021 Telephone encounter Rupa G florecita [facility] Work Phone: [facility] Comment on above: Results (Genetic marcio ting ) Start: 11-20-2021 Telephone encounter Yenny Posadas RN Hematology/Oncology Comment on above: Appointment Start: 11-18-2021 Chart abstracting Yenny Posadas RN Hematology/Oncology Start: 11-15-2021 Chart abstracting Yenny Posadas RN Hematology/Oncology Comment on above: Consent Presentation BR007 Refill Request Screening BR007 Start: 11-15-2021 End: 11-15-2021 ambulatory Caitlin Suarez MD Work Phone: Hematology/Oncology Comment on above: 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, estrogen receptor positive (HCC) (Primary Dx) Start: 11-15-2021 End: 11-15-2021 Telemedicine consultation with patient Caitlin Suarez MD Work Phone: [facility] Start: 11-07-2021 End: 11-07-2021 ambulatory Thu Cisneros OTR/L Work Phone: [facility] Comment on above: 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, estrogen receptor positive (HCC); Other chest pain Start: 11-04-2021 End: 11-04-2021 Patient encounter procedure Rupa Chacon [facility] Work Phone: [facility] Comment on above: Family history of ca ncer (Primary Dx); Screening mammogram, encounter for; Family history of breast cancer; Malignant neoplasm of 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, estrogen receptor positive (HCC); Family history of colon cancer Start: 10-30-2021 End: 10-30-2021 Subsequent hospital visit by physician Bone Density [facility] Work Phone: Radiology Comment on above: Encounter for screen ing for osteoporosis [Z13.820] Start: 10-25-2021 Telephone encounter Gladis Arauz MD Work Phone: Radiation Oncology Comment on above: Appointment Start: 10-24-2021 End: 10-24-2021 ambulatory Caitlin Suarez MD Work Phone: Hematology/Oncology Comment on above: 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, estrogen receptor positive (HCC) (Primary Dx) Start: 10-24-2021 End: 10-24-2021 Patient encounter procedure Jose E Bettencourt MD Work Phone: Radiation Oncology Comment on above: Carcinoma of upper-i nner quadrant of right breast in female, estrogen receptor positive (HCC) (Primary Dx) Start: 10-15-2021 End: 10-15-2021 Orders Only Amaya Bravo DO Work Phone: [facility] Comment on above: 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, estrogen receptor positive (HCC) (Primary Dx) Start: 10-07-2021 End: 10-07-2021 Subsequent hospital visit by physician Amaya Bravo DO Work Phone: Ambulatory Surgery Comment on above: Invasive ductal carc inoma of breast, right (HCC) [C50.911] Start: 10-04-2021 End: 10-04-2021 PAT [facility] [place] 1 Work Phone: Pre Anesthesia Comment on above: Preoperative examina tion (Primary Dx); Invasive ductal carcinoma of breast, right (HCC); Malignant neoplasm of 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, estrogen receptor positive (HCC); History of COVID-19; Gastroesophageal reflux disease, unspecified whether esophagitis present; Mood disorder (HCC); Class 1 obesity with body mass index (BMI) of 31.0 to 31.9 in adult, unspecified obesity type, unspecified whether serious comorbidity present Start: 10-04-2021 End: 10-04-2021 Preprocedural examination done [facility] Work Phone: Pre Anesthesia Start: 10-02-2021 End: 10-02-2021 Subsequent hospital visit by physician Procedure Mammo [facility] Start: 10-02-2021 ambulatory Maria De Jesus eaton LPN Work Phone: 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, estrogen receptor positive (HCC); Family history of breast cancer Start: 09-26-2021 End: 09-26-2021 Patient encounter procedure Caitlin Suarez MD Work Phone: [facility] Start: 09-10-2021 Telephone encounter Maria De Jesus malloy LPN Work Phone: [facility] Comment on above: Pit Manager - O ther Start: 08-27-2021 End: 08-27-2021 Patient encounter procedure Quinton Myers MD Work Phone: General Surgery Comment on above: Malignant neoplasm o f upper-outer quadrant of right breast in female, estrogen receptor positive (HCC) (Primary Dx) Start: 08-01-2021 ambulatory Lourdes cool MD Work Phone: [facility] Comment on above: Radiology Mammogram Start: 08-01-2021 Patient encounter procedure Lourdes Gruber MD Work Phone: [facility] Start: 07-26-2021 Telephone encounter Quinton beltran MD Work Phone: General Surgery Comment on above: Scheduling (right br east biopsy) Start: 07-26-2021 End: 07-26-2021 Patient encounter procedure Quinton Myers MD Work Phone: General Surgery Comment on above: Abnormal mammogram ( Primary Dx) Start: 07-23-2021 End: 07-23-2021 Patient encounter procedure Quinton Myers MD Work Phone: General Surgery Comment on above: Abnormal mammogram ( Primary Dx) Start: 07-22-2021 Refill Akira mercado MD Work Phone: Internal Medicine [place] Comment on above: Refill Request Start: 07-17-2021 End: 07-17-2021 Subsequent hospital visit by physician Diagnostic Mammo [facility] Comment on above: Abnormal mammogram [ R92.8] Start: 07-01-2021 End: 07-01-2021 Patient encounter procedure Trina Jorgensen MD Work Phone: OB/Gynecology Comment on above: Encounter for gyneco logical examination (general) (routine) without abnormal findings; Encounter for screening mammogram for breast cancer Start: 07-01-2021 End: 07-01-2021 Patient encounter status Trina Jorgensen MD Work Phone: OB/Gynecology Start: 06-26-2021 End: 06-26-2021 Patient encounter procedure Edie Johnson MD Work Phone: General Surgery Comment on above: Cellulitis of chest wall Start: 06-19-2021 ambulatory Akira mercado MD Work Phone: [facility] [place] Start: 06-19-2021 Follow-up encounter Akira rouse MD Work Phone: Internal Medicine [place] Comment on above: Follow up report in infection Start: 06-17-2021 ambulatory Akira mercado MD Work Phone: Internal Medicine [place] Comment on above: Question regarding C BC Start: 06-07-2021 End: 06-07-2021 ambulatory Akira Pierre MD Work Phone: Internal Medicine [place] Comment on above: Dysthymia (Primary D x); Postmenopausal symptoms; Nontoxic multinodular goiter; Dermatitis due to plants, including poison clara, sumac, and oak; Abnormal mammogram; Need for hepatitis C screening test; Screening, lipid; Encounter for screening for HIV; Encounter for long-term current use of medication; Chronic pain of both knees; Arthralgia of hands, bilateral Start: 06-07-2021 End: 06-07-2021 Telemedicine consultation with patient Akira Pierre MD Work Phone: [facility] [place] Start: 05-31-2021 Refill Akira mercado MD Work Phone: Internal Medicine [place] Comment on above: Refill Request Procedures Date Procedure Procedure Detail Performing Clinician Start: 08-25-2024 MRI of abdomen with contrast Dr. Akira Pierre MD Work Phone: Start: 08-12-[address] Akira Pierre MD Work Phone: Start: 04-22-2024 Screening digital br east tomosynthesis bi Stephanie Crawford PRIVATE TUTOR.BANK ANALYST Work Phone: Start: 01-12-2024 Adult depression scr eening assessment Landy Schneider MD Work Phone: Start: 05-22-2023 Computed tomography of abdomen and pelvis with contrast Start: 04-23-2023 Screening digital br east tomosynthesis bi Nahun Rossi Masci DO Work Phone: Start: 01-08-2023 Us soft tissue head & neck real time imge docm Patrice Palencia MD Work Phone: Start: 08-06-2022 Thyroid uptake w/blo od flow sngle/mult letty fawad Patrice Palencia MD Work Phone: Start: 06-26-2022 Us soft tissue head & neck real time imge docm Celeste Baldwins PRIVATE TUTOR.TRACK PRODUCTION ENGINEER Work Phone: Start: 05-06-2022 CT angiography of ch est with contrast Start: 04-25-2022 Us breast uni real t edilia with image limited Dana Flores PA-C Work Phone: Start: 04-21-[address] ephanie A Lawrence DO Work Phone: Start: 04-21-2022 Mammography Amaya Lawrence DO Work Phone: Start: 11-21-2021 Lipid 1996 panel - S kristen or Plasma Nahun Zavaleta DO Work Phone: Start: 10-30-2021 Dxa bone density juliette dy 1/> sites axial jayyel Caitlin Suarez MD Work Phone: Start: 10-23-2021 Adult depression scr eening assessment Jose E Bettencourt MD Work Phone: Start: 10-07-2021 Radiological examina tion surgical specimen Dana Flores PA-C Work Phone: Start: 10-07-2021 Inj radioactive trac er for id of sentinel node Dana Flores PA-C Work Phone: Start: 10-02-2021 Perq breast loc denise ce placemt 1st lesio us imag Dana Flores PA-C Work Phone: Start: 10-02-2021 End: 10-02-2021 Mammography Dana Flores PA-C Work Phone: Start: 09-26-2021 PT [facility] Mark RAINEY Work Phone: Start: 07-17-2021 HARSH AISHA W YANE RT Akira Pierre MD Work Phone: Start: 06-06-2021 Adult depression scr eening assessment Akira Pierre MD Work Phone: Start: 10-16-2020 Mammography Akira myrick MD Work Phone: Start: 01-31-2020 Colonoscopy Akira myrick MD Work Phone: Start: 05-12-2019 Adult depression scr eening assessment Akira Pierre MD Work Phone: Plan of Treatment Date Care Activity Detail Author Start: 12-07-2033 Urine microalbumin profile DTaP,Tdap,Td Vaccine (3 - Td or Tdap) [facility] Start: 11-21-2026 Lipid 1996 panel - Serum or Plasma Lipid Screening [facility] Start: 11-21-2026 Lipid panel Lipid Screening [facility] Start: 11-21-2026 LIPID SCREEN LIPID SCREEN [facility] Start: 07-01-2026 HPV TESTING HPV TESTING [facility] Start: 07-01-2026 PAP TESTING PAP TESTING [facility] Start: 07-01-2026 Screening for malignant neoplasm of cervix [facility] Start: 06-17-2026 LIPID SCREEN LIPID SCREEN [facility] Start: 10-15-2025 DIABETES SCREEN DIABETES SCREEN [facility] Start: 10-15-2025 Diabetes Screening Diabetes Screening [facility] Start: 06-20-2025 DIABETES SCREEN DIABETES SCREEN [facility] Start: 05-05-2025 DIABETES SCREEN DIABETES SCREEN [facility] Start: 04-22-2025 Screening for malignant neoplasm of breast Mammogram Screening [facility] Start: 02-10-2025 End: 02-10-2025 Patient encounter procedure 02/10/2025 8:00 AM EST Office Visit [facility] [place] [address] [place] [address] Akira Pierre MD [address] [place] [address] Yearly Exam and follow up [facility] [place] Comment on above: Yearly Exam and follow up Start: 01-30-2025 Colonoscopy COLONOSCOPY [facility] Start: 01-30-2025 COLORECTAL CANCER SCREENING COLORECTAL CANCER SCREENING [facility] Start: 01-30-2025 Screening for malignant neoplasm of colon [facility] Start: 01-11-2025 Anxiety Screening Anxiety Screening [facility] Start: 01-11-2025 Depression Screening Depression Screening [facility] Start: 01-11-2025 Hepatitis B Vaccine (1 of 3 - 19+ 3-dose series) Hepatitis B Vaccine (1 of 3 - 19+ 3-dose series) [facility] Comment on above: Postponed from 1984 (Declined at t his time) Start: 01-11-2025 Shingrix Vaccine (1 of 2) Shingrix Vaccine (1 of 2) [facility] Comment on above: Postponed from 07/17/2015 (Declined at t his time) Start: 11-25-2024 End: 11-25-2024 ambulatory 11/25/2024 8:00 AM EDT Visit (SP) Office Hematology/Oncology [address] [place] [address] Stephanie Crawford APRN.BANK ANALYST [address] [place] [address] 6 MO OV/LAB 11/21* Hematology/Oncology Comment on above: 6 MO OV/LAB 11/21* Start: 11-21-2024 End: 11-21-2024 Patient encounter procedure 11/21/2024 7:00 AM EDT Results Only [facility] [place] [facility] [address] [place] [address] LAB - CLINICAL TRIAL DRAW - YENNY TO PROVIDE TUBES [facility] Comment on above: LAB - CLINICAL TRIAL DRAW - YENNY TO P ROVIDE TUBES Start: 06-17-2024 DIABETES SCREEN DIABETES SCREEN [facility] Start: 05-23-2024 End: 05-23-2024 ambulatory 05/23/2024 8:30 AM EDT Visit (SP) Office Hematology/Oncology [address] [place] [address] Stephanie Crawford APRN.BANK ANALYST [address] [place] [address] 6 MTH OV* Hematology/Oncology Comment on above: 6 MTH OV* Start: 04-23-2024 Screening for malignant neoplasm of breast Mammogram Screening [facility] Start: 04-22-2024 End: 04-22-2024 Patient encounter procedure 04/22/2024 7:10 AM EST Appointment Mammogram [address] [place] [address] MAMMO [facility] Mammogram Comment on above: MAMMO [facility] Start: 03-31-2024 End: 03-31-2024 Patient encounter procedure 03/31/2024 4:00 PM EST Office Visit OB/Gynecology [address] [place] [address] Trina Jorgensen MD [address] [place] [address] Annual OB/Gynecology Comment on above: Annual Start: 03-04-2024 Screening for malignant neoplasm of lung Lung Cancer Screening [facility] Start: 02-23-2024 End: 02-23-2024 ambulatory 02/23/2024 8:30 AM EST Visit (SP) Office Hematology/Oncology [address] [place] [address] Aleida Rodriguez [address] [place] [address] 6 MO OV* Hematology/Oncology Comment on above: 6 MO OV* Start: 01-27-2024 End: 01-27-2024 Patient encounter procedure 01/27/2024 4:00 PM EST Office Visit OB/Gynecology [address] [place] [address] Trina Jorgensen MD [address] [place] [address] Annual OB/Gynecology Comment on above: Annual Start: 01-12-2024 End: 01-12-2024 Patient encounter procedure 01/12/2024 5:00 PM EST Office Visit Internal Medicine [place] [address] [place] [address] Akira Pierre MD [address] [facility] [place] [address] Yearly exam and follow up Internal Medicine [place] Comment on above: Yearly exam and follow up Start: 12-07-2023 End: 12-07-2023 Follow-up encounter 12/07/2023 3:00 PM EDT [facility] Endocrinology [address] [place] [id number] Patrice Palencia MD [address] [place] [address] 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 Endocrinology Comment on above: Nontoxic multinodular goiter - thyroid f ollow up Start: 11-24-2023 End: 11-24-2023 ambulatory 11/24/2023 8:00 AM EDT Visit (SP) Office Hematology/Oncology [address] [place] [address] Stephanie Crawford APRN.BANK ANALYST [address] [place] [address] 3 MO OV/ON STUDY* Hematology/Oncology Comment on above: 3 MO OV/ON STUDY* Start: 11-08-2023 Covid-19 Vaccine ( season) Covid-19 Vaccine ( season) [facility] Start: 11-08-2023 Covid-19 Vaccine ( season) Covid-19 Vaccine ( season) [facility] Start: 11-08-2023 Influenza vaccination [facility] Start: 10-16-2023 End: 10-16-2023 Follow-up encounter 10/16/2023 7:20 AM EDT [facility] Endocrinology [address] [place] [address] Patrice Palencia MD [address] [facility] [place] [address] 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 Endocrinology Comment on above: Nontoxic multinodular goiter - thyroid f ollow up Start: 09-06-2023 Influenza vaccination Influenza Vaccine (#1) Javier Benson herrera Comment on above: Postponed from 11/07/2022 (Declined at t his time) Start: 08-24-2023 End: 08-24-2023 ambulatory 08/24/2023 3:50 PM EDT Visit (SP) Office Hematology/Oncology [address] [place], [place] [id number] Nahun Zavaleta DO [address] [place], [place] [id number] 3MO OV* Hematology/Oncology Comment on above: 3MO OV* Start: 08-15-2023 End: 11-14-2023 Thyrotropin [Units/volume] in Serum or Plasma TSH BLD Lab Routine Nontoxic multinodular goiter Expected: 08/15/2023, Expires: 11/14/2023 [facility] Work Phone: Comment on above: Expected: 08/15/2023, Expires: Start: 08-15-2023 End: 11-14-2023 Thyroxine (T4) free [Mass/volume] in Serum or Plasma T4 FREE/FREE THYROX Lab Routine Nontoxic multinodular goiter Expected: 08/15/2023, Expires: 11/14/2023 [facility] Work Phone: Comment on above: Expected: 08/15/2023, Expires: Start: 04-21-2023 [facility] Start: 03-09-2023 Behavioral Health Screening Behavioral Health Screening [facility] Start: 03-09-2023 Depression Assessment Depression Assessment [facility] Start: 02-14-2023 End: 04-16-2023 Thyrotropin [Units/volume] in Serum or Plasma TSH BLD Lab Routine Nontoxic multinodular goiter Expected: 02/14/2023, Expires: 04/16/2023 [facility] Work Phone: Comment on above: Expected: 02/14/2023, Expires: Start: 02-14-2023 End: 04-16-2023 Thyroxine (T4) free [Mass/volume] in Serum or Plasma T4 FREE/FREE THYROX Lab Routine Nontoxic multinodular goiter Expected: 02/14/2023, Expires: 04/16/2023 [facility] Work Phone: Comment on above: Expected: 02/14/2023, Expires: Start: 12-20-2022 HEPATITIS B (1 of 3 - 3-dose series) HEPATITIS B (1 of 3 - 3-dose series) [facility] Comment on above: Postponed from 1965 (Declined at t his time) Start: 12-20-2022 Hepatitis B Vaccine (1 of 3 - 3-dose series) Hepatitis B Vaccine (1 of 3 - 3-dose series) [facility] Comment on above: Postponed from 1965 (Declined at t his time) Start: 12-20-2022 Influenza vaccination LUNG CANCER SCREENING [facility] Comment on above: Postponed from 07/17/2015 (Declined at t his time) Start: 11-07-2022 Covid-19 Vaccine ( season) Covid-19 Vaccine ( season) [facility] Start: 11-07-2022 Influenza vaccination [facility] Start: 10-23-2022 Adult depression screening assessment DEPRESSION SCREENING [facility] Start: 10-15-2022 End: 12-15-2022 Thyrotropin [Units/volume] in Serum or Plasma TSH BLD Lab Routine Low TSH level Expected: 10/15/2022, Expires: 12/15/2022 [facility] Work Phone: Comment on above: Expected: 10/15/2022, Expires: 3 Start: 10-15-2022 End: 12-15-2022 Thyroxine (T4) free [Mass/volume] in Serum or Plasma T4 FREE/FREE THYROX Lab Routine Low TSH level Expected: 10/15/2022, Expires: 12/15/2022 [facility] Work Phone: Comment on above: Expected: 10/15/2022, Expires: 3 Start: 10-15-2022 End: 12-15-2022 Triiodothyronine (T3) Free [Mass/volume] in Serum or Plasma T3 FREE BLD Lab Routine Low TSH level Expected: 10/15/2022, Expires: 12/15/2022 [facility] Work Phone: Comment on above: Expected: 10/15/2022, Expires: 3 Start: 10-02-2022 Mammography MAMMOGRAM [facility] Start: 06-23-2022 End: 08-23-2022 THYROID PEROXIDASE ANTIBODY BLOOD [facility] Work Phone: Comment on above: Expected: 06/23/2022, Expires: 3 Start: 06-23-2022 End: 08-23-2022 Thyroxine (T4) free [Mass/volume] in Serum or Plasma [facility] Work Phone: Comment on above: Expected: 06/23/2022, Expires: 3 Start: 06-23-2022 End: 08-23-2022 Triiodothyronine (T3) Free [Mass/volume] in Serum or Plasma [facility] Work Phone: Comment on above: Expected: 06/23/2022, Expires: 3 Start: 06-07-2022 SHINGRIX VACCINE (1 of 2) SHINGRIX VACCINE (1 of 2) [facility] Comment on above: Postponed from 07/17/2015 (Declined at t his time) Start: 06-07-2022 Urine microalbumin profile DTAP,TDAP,TD (2 - Td or Tdap) [facility] Comment on above: Postponed from 10/13/2018 (Declined at t his time) Start: 06-06-2022 Adult depression screening assessment DEPRESSION SCREENING [facility] Start: 05-06-2022 [facility] Start: 03-09-2022 DEPRESSION ASSESSMENT DEPRESSION ASSESSMENT [facility] Start: 02-12-2022 End: 04-14-2022 25-hydroxyvitamin D3 [Mass/volume] in Serum or Plasma [facility] Work Phone: Comment on above: Expected: 02/12/2022, Expires: 3 Start: 12-04-2021 COVID-19 VACCINE (5 - Booster for Pfizer series) COVID-19 VACCINE (5 - Booster for Pfizer series) [facility] Start: 11-07-2021 Influenza vaccination [facility] Start: 11-04-2021 End: 01-04-2022 MISC SEND OUT TST 1 MISC SEND OUT TST 1 Lab Routine Family history of breast cancer Malignant neoplasm of 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, estrogen receptor positive (HCC) Family history of cancer Family history of colon cancer Expected: 11/04/2021, Expires: 01/04/2022 [facility] Work Phone: Comment on above: Expected: 11/04/2021, Expires: 2 Start: 10-16-2021 Mammography MAMMOGRAM [facility] Start: 10-10-2021 End: 10-26-2022 Dxa bone density study 1/> sites axial skel DXA-AXIAL SKELETON Radiology Routine Encounter for screening for osteoporosis Asymptomatic postmenopausal status Expected: 10/10/2021, Expires: 10/26/2022 [facility] Work Phone: Comment on above: Expected: 10/10/2021, Expires: 3 Start: 06-07-2021 End: 08-07-2021 CBC panel - Blood by Automated count CBC Lab Routine Encounter for long-term current use of medication Expected: 06/07/2021, Expires: 08/07/2021 [facility] Work Phone: Comment on above: Expected: 06/07/2021, Expires: 2 Start: 06-07-2021 End: 08-07-2021 Comprehensive metabolic 2000 panel - Serum or Plasma COMP METABOLIC PANEL Lab Routine Encounter for long-term current use of medication Expected: 06/07/2021, Expires: 08/07/2021 [facility] Work Phone: Comment on above: Expected: 06/07/2021, Expires: 2 Start: 06-07-2021 End: 08-07-2021 Hepatitis C virus Ab [Presence] in Serum HEP C AB IA W/CONF SCRN Lab Routine Need for hepatitis C screening test Expected: 06/07/2021, Expires: 08/07/2021 [facility] Work Phone: Comment on above: Expected: 06/07/2021, Expires: 2 Start: 06-07-2021 End: 08-07-2021 HIV 1+2 Ab [Presence] in Serum or Plasma by Immunoassay HIV 1 2 COMBO(AG/AB),WITH REFLEX TO DIFFERENTIATION Lab Routine Encounter for screening for HIV Expected: 06/07/2021, Expires: 08/07/2021 [facility] Work Phone: Comment on above: Expected: 06/07/2021, Expires: 2 Start: 06-07-2021 End: 08-07-2021 LIPID PANEL BASIC LIPID PANEL BASIC Lab Routine Screening, lipid Expected: 06/07/2021, Expires: 08/07/2021 [facility] Work Phone: Comment on above: Expected: 06/07/2021, Expires: 2 Start: 06-07-2021 End: 08-07-2021 T3 FREE BLD T3 FREE BLD Lab Routine Nontoxic multinodular goiter Dysthymia Expected: 06/07/2021, Expires: 08/07/2021 [facility] Work Phone: Comment on above: Expected: 06/07/2021, Expires: 2 Start: 06-07-2021 End: 08-07-2021 T4 FREE/FREE THYROX T4 FREE/FREE THYROX Lab Routine Nontoxic multinodular goiter Dysthymia Expected: 06/07/2021, Expires: 08/07/2021 [facility] Work Phone: Comment on above: Expected: 06/07/2021, Expires: 2 Start: 06-07-2021 End: 08-07-2021 Thyrotropin [Units/volume] in Serum or Plasma TSH BLD Lab Routine Nontoxic multinodular goiter Dysthymia Expected: 06/07/2021, Expires: 08/07/2021 [facility] Work Phone: Comment on above: Expected: 06/07/2021, Expires: 2 Start: 05-30-2021 COVID-19 VACCINE (4 - Booster for Pfizer series) COVID-19 VACCINE (4 - Booster for Pfizer series) [facility] Start: 03-09-2021 DEPRESSION ASSESSMENT DEPRESSION ASSESSMENT [facility] Start: 11-07-2020 Influenza vaccination INFLUENZA (#1) [facility] Start: 08-19-2020 COVID-19 VACCINE (3 - Booster for Pfizer series) COVID-19 VACCINE (3 - Booster for Pfizer series) [facility] Start: 05-11-2020 Adult depression screening assessment DEPRESSION SCREENING [facility] Start: 05-16-2019 HPV TESTING HPV TESTING [facility] Start: 05-16-2019 PAP TESTING PAP TESTING [facility] Start: 10-13-2018 Urine microalbumin profile [facility] Start: 08-12-2018 DIABETES SCREEN DIABETES SCREEN [facility] Start: 07-13-2018 LIPID SCREEN LIPID SCREEN [facility] Start: 07-17-2015 Influenza vaccination LUNG CANCER SCREENING [facility] Start: 07-17-2015 Pneumococcal Vaccine: 50+ (1 of 1 - PCV) Pneumococcal Vaccine: 50+ (1 of 1 - PCV) [facility] Start: 07-17-2015 SHINGRIX VACCINE (1 of 2) SHINGRIX VACCINE (1 of 2) [facility] Start: 2010 COLOGUARD (FIT-DNA) COLOGUARD (FIT-DNA) [facility] Start: [address] COLONOGRAPHY [facility] Start: 2010 FECAL OCCULT BLOOD FECAL OCCULT BLOOD [facility] Start: 2010 Screening for malignant neoplasm of colon [facility] Start: 2010 SIGMOIDOSCOPY SIGMOIDOSCOPY [facility] Start: 1984 Hepatitis B Vaccine (1 of 3 - 19+ 3-dose series) Hepatitis B Vaccine (1 of 3 - 19+ 3-dose series) [facility] Start: 07-17-1983 Anxiety Screening Anxiety Screening [facility] Start: 07-17-1983 Depression Screening Depression Screening [facility] Start: 07-17-1983 HEPATITIS C SCREENING HEPATITIS C SCREENING [facility] Start: 07-17-1983 HIV SCREENING HIV SCREENING [facility] Start: 1965 HEPATITIS B (1 of 3 - 3-dose series) HEPATITIS B (1 of 3 - 3-dose series) [facility] Start: 1965 Hepatitis B Vaccine (1 of 3 - 3-dose series) Hepatitis B Vaccine (1 of 3 - 3-dose series) [facility] End: 03-18-2023 Basic metabolic 2000 panel - Serum or Plasma BASIC METABOLIC PNL Lab STAT Malignant neoplasm of 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, estrogen receptor positive (HCC) Vitamin D deficiency Every 6 months for 2 Occurrences starting 03/18/2022 until 03/18/2023 [facility] Work Phone: Comment on above: Every 6 months for 2 Occurrences startin g 03/18/2022 until 03/18/2023 End: 08-25-2022 Bx breast w/device 1st lesion ultrasound guid US BIOPSY BREAST RT Radiology Routine Abnormal mammogram 1 Occurrences starting 07/26/2021 until 08/25/2022 [facility] Work Phone: Comment on above: 1 Occurrences starting 07/26/2021 until 08/25/2022 Bx/exc lymph node op en deep axillary node BX/REMV,LYMPH NODE,DEEP AXILL Procedures Routine Invasive ductal carcinoma of breast, 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, estrogen receptor positive (HCC) Ordered: 09/26/2021 [facility] Work Phone: Comment on above: Ordered: 09/26/2021 End: 06-20-2024 CT Abdomen and Pelvis W contrast IV CT ABD/PEL W IVCON Radiology STAT Hiatal hernia with GERD Other specified intestinal obstruction, unspecified whether partial or complete (HCC) Nausea Malignant neoplasm of 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, estrogen receptor positive (HCC) 1 Occurrences starting 05/22/2023 until 06/20/2024 [facility] Work Phone: Comment on above: 1 Occurrences starting 05/22/2023 until 06/20/2024 End: 12-23-2024 DBT Breast - bilateral screening HARSH SCREENING W YANE Radiology Routine Malignant neoplasm of 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, estrogen receptor positive (HCC) Examination of participant in clinical trial Encounter for screening mammogram for high-risk patient 1 Occurrences starting 11/24/2023 until 12/23/2024 [facility] Work Phone: Comment on above: 1 Occurrences starting 11/24/2023 until 12/23/2024 End: 07-07-2022 Diagnostic mammography computer-aided detcj uni HARSH DIAGNOSTIC RT Radiology Routine Abnormal mammogram 1 Occurrences starting 06/07/2021 until 07/07/2022 [facility] Work Phone: Comment on above: 1 Occurrences starting 06/07/2021 until 07/07/2022 End: 05-23-2023 Diagnostic mammography computer-aided detcj uni HARSH DIAGNOSTIC RT Radiology Routine Abnormal mammogram Personal history of breast cancer 1 Occurrences starting 04/23/2022 until 05/23/2023 [facility] Work Phone: Comment on above: 1 Occurrences starting 04/23/2022 until 05/23/2023 Exc breast les preop plmt rad marker open 1 les EXCIS BREAST LES W XRAY MARKER Procedures Routine Invasive ductal carcinoma of breast, 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, estrogen receptor positive (HCC) Ordered: 09/26/2021 [facility] Work Phone: Comment on above: Ordered: 09/26/2021 Hzv zoster vacc recombinant adjuvanted im njx ZOSTER VACCINE, RECOMBINANT (SHINGRIX) Immunization/Injection Routine Encounter for immunization Ordered: 06/20/2022 [facility] Work Phone: Comment on above: Ordered: 06/20/2022 Inj radioactive trac er for id of sentinel node IDENTIFY SENTINEL NODE Procedures Routine Invasive ductal carcinoma of breast, 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, estrogen receptor positive (HCC) Ordered: 09/26/2021 [facility] Work Phone: Comment on above: Ordered: 09/26/2021 End: 10-27-2022 Inj radioactive tracer for id of sentinel node NM INJ SENTINEL NODE BREAST RT Radiology Routine Invasive ductal carcinoma of breast, 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, estrogen receptor positive (HCC) 1 Occurrences starting 09/26/2021 until 10/27/2022 [facility] Work Phone: Comment on above: 1 Occurrences starting 09/26/2021 until 10/27/2022 End: 10-26-2022 HARSH SCREENING W YANE HARSH SCREENING W YANE Radiology Routine Screening mammogram, encounter for 1 Occurrences starting 09/26/2021 until 10/26/2022 [facility] Work Phone: Comment on above: 1 Occurrences starting 09/26/2021 until 10/26/2022 Mastectomy partial MASTECTOMY, P ARTIAL Procedures Routine Invasive ductal carcinoma of breast, 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, estrogen receptor positive (HCC) Ordered: 09/26/2021 [facility] Work Phone: Comment on above: Ordered: 09/26/2021 MR Abdomen WO and W contrast IV [facility] PAP FLUID CERVICAL SCREENING PAP FLUID CERVICAL SCREENING Lab Routine Encounter for gynecological examination (general) (routine) without abnormal findings Encounter for screening mammogram for breast cancer 07/01/2021 10:11 AM EDT [facility] Work Phone: Patient Education Zometa Injecti on 4 mg/5 mL Taking Opioid Medicines [facility] Work Phone: Patient referral [facility] Work Phone: End: 10-26-2022 Perq device placement breast loc 1st les w/gdnce HARSH NDL LOC W HARSH GD RT Radiology Routine Invasive ductal carcinoma of breast, 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, estrogen receptor positive (HCC) 1 Occurrences starting 09/26/2021 until 10/26/2022 [facility] Work Phone: Comment on above: 1 Occurrences starting 09/26/2021 until 10/26/2022 PT ED [facility] PT ED [facility] Other 09/26/2021 [facility] Work Phone: PT education noc individ PT EDUC ATION NOC INDIVID Procedures Routine Invasive ductal carcinoma of breast, 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, estrogen receptor positive (HCC) Ordered: 09/26/2021 [facility] Work Phone: Comment on above: Ordered: 09/26/2021 SURGICAL PATHOLOGY [facility] Work Phone: Comment on above: Release Upon Ordering for 1 Occurrences starting 10/07/2021, 1 completed Tdap vaccine 7 yrs/> im TDAP VAC CINE, AGE 7+ YR (ADACEL, BOOSTRIX) Immunization/Injection Routine Encounter for immunization Ordered: 06/20/2022 [facility] Work Phone: Comment on above: Ordered: 06/20/2022 End: 08-10-2023 Thyroid uptake w/blood flow sngle/mult letty fawad NM THY UPTAKE AND SCAN Radiology Routine Low TSH level Thyroid nodule 1 Occurrences starting 07/11/2022 until 08/10/2023 [facility] Work Phone: Comment on above: 1 Occurrences starting 07/11/2022 until 08/10/2023 End: 08-05-2022 Thyroid uptake w/blood flow sngle/mult letty fawad [facility] Work Phone: Comment on above: 1 Occurrences starting 08/05/2022 until 08/05/2022 US BREAST BIOPSY RIG HT (POC) SURG USE ONLY US BREAST BIOPSY RIGHT (POC) SURG USE ONLY Imaging Procedures Routine Abnormal mammogram Ordered: 07/26/2021 [facility] Work Phone: Comment on above: Ordered: 07/26/2021 End: 07-07-2022 Us breast uni real time with image limited US BREAST LTD RT Radiology Routine Abnormal mammogram 1 Occurrences starting 06/07/2021 until 07/07/2022 [facility] Work Phone: Comment on above: 1 Occurrences starting 06/07/2021 until 07/07/2022 End: 05-22-2023 Us breast uni real time with image limited US BREAST LTD RT Radiology Routine Abnormal mammogram Personal history of breast cancer 1 Occurrences starting 04/23/2022 until 05/22/2023 [facility] Work Phone: Comment on above: 1 Occurrences starting 04/23/2022 until 05/22/2023 End: 07-20-2023 Us soft tissue head & neck real time imge docm US THYROID/PARATHYROID Radiology Routine Nontoxic multinodular goiter 1 Occurrences starting 06/20/2022 until 07/20/2023 [facility] Work Phone: Comment on above: 1 Occurrences starting 06/20/2022 until 07/20/2023 End: 01-14-2024 Us soft tissue head & neck real time imge docm US THYROID/PARATHYROID Radiology Routine Nontoxic multinodular goiter 1 Occurrences starting 12/15/2022 until 01/14/2024 [facility] Work Phone: Comment on above: 1 Occurrences starting 12/15/2022 until 01/14/2024 [facility] Immunizations Immunization Date Immunization Notes Care Provider Fa [facility] 01-08-2024 measles, mumps and rubella virus vaccine Akira Pierre MD Work Phone: [facility] 12-08-2023 measles, mumps and rubella virus vaccine Akira Pierre MD Work Phone: [facility] 12-08-2023 tetanus toxoid, reduced diphtheria toxoid, and acellular pertussis vaccine, adsorbed Akira Pierre MD Work Phone: [facility] 12-01-2023 influenza, seasonal, injectable, preservative free Akira Pierre MD Work Phone: [facility] 01-01-2022 Covid Pfizer Bivalen t Booster Dr. Akira Pierre MD Work Phone: [facility] 12-13-2021 influenza virus vaccine, unspecified formulation Nahun Zavaleta DO Work Phone: [facility] 12-12-2021 influenza, injectabl e, quadrivalent, contains preservative Akira Pierre MD Work Phone: [facility] 12-12-2021 influenza virus vaccine, unspecified formulation Screen Wstr [facility] 10-09-2021 Covid (Pfizer) Dr. Akira barnhart MD Work Phone: [facility] 01-30-2021 COVID-19 vaccine, ag e 12+ yr (PFIZER-BIONTECH - PURPLE TOP) Akira Pierre MD Work Phone: [facility] Work Phone: 03-21-2020 Covid (Pfizer) Dr. Akira barnhart MD Work Phone: [facility] 02-29-2020 Covid (Pfizer) Dr. Akira barnhart MD Work Phone: [facility] 12-21-2018 influenza, seasonal, injectable Akira Pierre MD Work Phone: [facility] 12-23-2017 influenza virus vaccine, unspecified formulation Akira Pierre MD Work Phone: [facility] 12-14-2011 influenza virus vaccine, unspecified formulation Akira Pierre MD Work Phone: [facility] 10-13-2008 tetanus toxoid, reduced diphtheria toxoid, and acellular pertussis vaccine, adsorbed Akira Pierre MD Work Phone: [facility] NEGATED: Highlighted row has not occurred!06-20-2022 tetanus toxoid, reduced diphtheria toxoid, and acellular pertussis vaccine, adsorbed Celeste Salcedo [employer]IVATE TUTOR.TR[employer] PRODUCTION ENGINEER Work Phone: [facility] Work Phone: Comment on above: Deferred: Postponed NEGATED: Highlighted row has not occurred!06-20-2022 zoster vaccine recombinant Celeste Salcedo PRIVATE TUTOR.TRACK PRODUCTION ENGINEER Work Phone: [facility] Work Phone: Comment on above: Deferred: Postponed Payers Date Payer Category Payer Private Health Insurance [id number] 2023 Self-pay [id number] 2023 Private Health Insurance [id number] 2017 Private Health Insurance [employer] A ETNA CHOICE POS II [id number] 2017-Present [phone] [address] [place] [address] POS [id number] 2017 Private Health Insurance [id number] 2017 Private Health Insurance [id number] Unknown [id number] Unknown [id number] Unknown [id number] Unknown [id number] Unknown [id number] Social History Date Type Detail Facility Start: 08-15-2015 End: 08-11-2024 Tobacco smoking status NHIS Ex-smoker [facility] Start: 08-04-1983 End: 08-07-2015 History of tobacco use Current smoker [facility] Start: 08-15-2015 End: 07-11-2022 Cigarettes smoked current (pack per day) - Reported 1 [facility] Start: 08-15-2015 End: 10-15-2021 Tobacco use and exposure Smokeless tobacco non-user [facility] Start: 07-26-2020 Alcohol intake Current non-drinker of alcohol (finding) [facility] Start: 01-31-2020 End: 06-17-2022 History SDOH Alcohol Frequency 2 [facility] Start: 01-31-2020 End: 06-17-2022 History SDOH Alcohol Std Drinks 1 [facility] Start: 05-12-2019 End: 06-17-2022 History SDOH Social Connections Phone 3 [facility] Start: 05-12-2019 History SDOH Physical Activity DPW 0 [facility] Start: 05-12-2019 History SDOH Financial 5 [facility] Start: 05-12-2019 Education 15 [facility] Start: 1965 Sex Assigned At Female [facility] Start: 06-06-2021 End: 06-17-2022 History SDOH Social Connections Meetings 98 [facility] Start: 06-06-2021 End: 06-17-2022 History SDOH Financial 4 [facility] Start: 05-31-2021 End: 12-20-2021 Exposure to SARS-CoV-2 (event) Not sure [facility] Start: 06-26-2021 End: 05-23-2024 Alcohol intake Current drinker of alcohol (finding) [facility] Start: 06-26-2021 History SDOH Alcohol Comment social [facility] Start: 07-22-2021 End: 08-01-2021 Exposure to SARS-CoV-2 (event) Unable to assess [facility] Start: 09-16-2021 End: 09-26-2021 Exposure to SARS-CoV-2 (event) Yes [facility] Start: 08-04-1983 End: 08-07-2015 History of tobacco use Cigarette Smoker [facility] Start: 10-04-2021 History SDOH Alcohol Comment Not weekly [facility] Start: 05-06-2022 End: 05-06-2022 Tobacco smoking status PAIS Unknown if ever smoked [facility] Start: 06-16-2022 End: 07-11-2022 Social connection and isolation panel [facility] How often do you att end religion or amish services? Patient refused [facility] Do you belong to any clubs or organizations such as religion groups, unions, fraternal or athletic groups, or school groups? No [facility] Are you now , , , , never or living with a partner? [facility] How often to you hav e a drink containing alcohol? Monthly or less [facility] How many standard dr inks containing alcohol do you have on a typical day? 1 or 2 [facility] How often do you hav e 6 or more drinks on 1 occasion? Never [facility] How hard is it for y ou to pay for the very basics like food, housing, medical care, and heating Somewhat hard [facility] Do you feel stress - tense, restless, nervous, or anxious, or unable to sleep at night because your mind is troubled all the time - these days [OSQ] To some extent [facility] (I/We) worried dimitri er (my/our) food would run out before (I/we) got money to buy more. Never true [facility] Start: 01-15-2020 Gender identity Identifies as female gender (finding) [facility] Start: 01-15-2020 Sexual orientation Heterosexual (finding) [facility] How hard is it for y ou to pay for the very basics like food, housing, medical care, and heating Not very hard [facility] Medical Equipment Procedure Code Equipment Code Equipment Origin al Text Equipment Identifier Dates Gregory Reflector [id number] Start: 10-02-2021 Mesh Surgical Parietene Ds 12cm Round - [id number] Start: 06-11-2023 Functional Status Date Assessment Result Facility 06-26-2014 Are you deaf, or do you have serious difficulty hearing No 06/26/2014 11:49 AM Any Topete Ma [facility] 06-26-2014 Are you blind, or do you have serious difficulty seeing, even when wearing glasses No 06/26/2014 11:49 AM Any Topete Ma [facility] 06-26-2014 Do you have serious difficulty walking or climbing stairs No 06/26/2014 11:49 AM Any Topete Ma [facility] 06-26-2014 Do you have difficul ty dressing or bathing No 06/26/2014 11:49 AM Any Topete Ma [facility] 06-26-2014 Because of a physica l, mental, or emotional condition, do you have difficulty doing errands alone such as visiting a physician's office or shopping No 06/26/2014 11:49 AM Any Topete Ma [facility] Mental Status Date Assessment Result Facility 05-06-2022 Cognitive function Voice/Name [facility] Work Phone: 06-26-2014 Because of a physica l, mental, or emotional condition, do you have serious difficulty concentrating, remembering, or making decisions No 06/26/2014 11:49 AM Any Topete Ma [facility] Clinical Notes 12-16-2011 to 08-12-2024 Note Date & Type Note Facility 08-12-2024 Radiology Diagnostic study note [facility] Imaging Services [address] [place] [address] Abdomen Limited MR#: [id number] Acct: [id number] Name: REBECA WILSON Rep #: [id number] : 1965 F 59 From: Nava Goldberg MD PCP: Dr. Akira Pierre MD Status: RE G CLI Study:Abdomen Limited Date of Exam: 08/31 Exam# [id number] Ordering Dr: Maria De Jesus Heath PROCEDURE: ABDOMEN LIMITED 08/12/2024 REASON FOR EXAM: EPIGASTRIC FULLNESS, BLOATING COMPARISON: CT abdomen and pelvis on 05/22/2023 FINDINGS: Liver: Mildly enlarged measuring 17.7 cm longitudinally. Increased echogenicityrelative to the right kidney. There is a round hypoechoic lesion in the left hepatic lobe measuring 1.2 x 1.3 x 1.6 cm, withoutinternal vascularity on color Doppler evaluation. Gallbladder: No stones, sludge, wall thickening, pericholecystic fluid, or tenderness. Common bile duct: Normal measuring 3 mm. Pancreas: Visualized portions are sonographically unremarkable. Other: Visualized portions of the right kidney are unremarkable. No right upperquadrant ascites. US/Abdomen Limited IMPRESSION: 1. Hypoechoic lesion in the left hepatic lobe measuring 1.6 cm. Recommend multiphase liver CT or MRI for further characterization. 2. Hepatic steatosis and hepatomegaly. Reading Location: [id number] CC: CAMPOS Heath; Dr. Akira Pierre MD ~ Fish Processing Supervisor: Signed [facility] 08-10-2024 Evaluation note Diagnosis Onset Date Resolution Bloating acute August 10, 2024 4:47pm Epigastric fullness acute August 10, 2024 4:47pm [facility] Work Phone: 1(199) 856-261003-17-2025 Telephone encounter Note* Telephone Encounter - Stefany Beckford - 05/23/2024 12:32 PM EDT Patient schedule lab for 11/21 [facility] Work Phone: 1(133) 863-119103-17-2025 Miscellaneous Notes* Telephone Encounter - Stefany Beckford - 05/23/2024 12:32 PM EDT Patient schedule lab for 11/21 * Telephone Encounter - Emely Chadwick - 05/23/2024 10:53 AM EDT LVM for pt to call back and schedule lab appt before 11/25 appt. Emely Chadwick [facility] Telephone encounter Note * Telephone Encounter - Emely Chadwick - 05/23/2024 10:53 AM EDT LVM for pt to call back and schedule lab appt before 11/25 appt. Emely Chadwick [facility]03-17-2025 NoteHNO ID: [id number] Author: YENNY POSADAS RN Service: ? Author Type: Registered Nurse Type: Progress Notes Filed: 05/23/2024 10:45 Note Text: IRB# [id number] Title: NRG BR007: A Phase III Clinical Trial Evaluating De-Escalation of Breast Radiation for Conservative Treatment of Stage I, Hormone Sensitive, Her2-Negative, Oncotype Recurrence Score <= 18 Breast Cancer. Participant Information: Informed Consent Signed 11/18/2021 Registered: 11/18/2021 Randomization Date: 11/18/2021 Treatment Arm: HT - TA2 Study ID [id number] Consent to optional samples Yes Staging/Diagnosis pT1b pN0(sn) M0 ER/AR positive, HER2 negative stage IA Study Status Follow Up Current Treatment Plan: Treatment Dose Start Date Frequency End date exemestane (AROMASIN) 25/mg 11/25/2021 Daily Clinical Trial Specific Testing Test Dates Completed Due Date Mammogram Scan 04/22/202404/2025 Clinical Trial Draw 11/17/202211/2024 Year 3 QOLs 11/2023 QOLS were completed in aguilar via [employer] 11/2024 Baseline Weight 89.8 (11/15/2021) 95.7 Creatinine Clearance N/A Patient here today for 30 month post randomization visit. Patient expressed no new symptoms. Patients dry skin has resolved. Patient feeling much more herself still has some issues with her hot flashes, but not terrible. Patient states compliance with endocrine therapy. No missed doses. Patient ECOG 0/ KPS 100 Vitals: 05/23/24 08:35 Weight 95.7 kg (210 lb 15.7 oz) BSA 0 BMI 0 Temp 37.3 ?C (99.2 ?F) Resp 16 Pulse 82 BP 144/86 SpO2 96 % Current medications reviewed with patient as reported below: Current Outpatient Medications on File Prior to Visit Medication Sig Start/Stop Use [START ON 11/25/2021] exemestane (AROMASIN) 25 mg tablet Take 1 tablet by mouth once daily. Start:11/25/2021 endocrine therapy cyclobenzaprine (FLEXERIL) 10 mg tablet Take 0.5-1 tablets by mouth three times daily as needed for muscle spasm. Start: 11/15/2021 Stopped:12/07/2021 Start:03/09/2022 Muscle relaxer meloxicam (MOBIC) 15 mg tablet Take 1 tablet by mouth once daily. Start: 07/23/2021 Stopped:09/06/2021 Start:03/09/2022 Pain buPROPion SR (WELLBUTRIN SR) 150 mg 12 hr tablet Take 1 tablet by mouth twice daily. Start:07/07/2014 Stop:05/13/2022 Depression and Smoking Cessation omeprazole (PRILOSEC) 20 mg capsule Take 20 mg by mouth once daily. Start:2019 GERD MULTI-VITAMIN ORAL Take by mouth once daily. Start: >15 years Supplement fluticasone (FLONASE) 50 mcg/actuation nasal spray Use 2 Sprays in each nostril once daily. Rinse mouth after use. Start: 07/12/2013 Allergies Vanalafexine (EFFEXOR XR) 150 mg Take by mouth once daily. Start:05/14/2022 Depression Citracal with vitamin D Take by mouth once daily. Start:02/13/2022 Supplement No current facility-administered medications on file prior to visit. Baseline Toxicities per CTCAE v. 5: All predate therapy, are chronic conditions and will not be actively followed unless they worsen during the clinical trial. Pain; Other; bilateral knees: Grade 1 Start date:PRIOR TO STUDY Unrelated to study drug - Resolved: No Treatment: Meloxicam Outcome: Continue to monitor Action Required: Not at this time Dry Mouth Grade 1 Start date:PRIOR TO STUDY - Unrelated to study drug - Resolved: No Treatment: No Outcome: Continue to monitor Action Required: Not at this time Bloating - Grade 1 - Start date:PRIOR TO STUDY -reported 11/24/2023 Unrelated to study drug - Hernia Repair Treatment: No. Outcome: Ongoing Action Required: None Resolved: No Constipation - Grade 1 - Start date:PRIOR TO STUDY -reported 11/24/2023 Unrelated to study drug - Hernia Repair Treatment: No. Outcome: Ongoing Action Required: None Resolved: No Toxicities per CTCAE v. 5 Hypertension; Grade 2 Start date:02/12/2022 Increased:05/23/2024 Unrelated to study drug - Resolved: No Treatment: No Outcome: Continue to monitor Action Required: Not at this time Hot Flashes; Grade 1 Start date:02/12/2022 Related to study drug - Resolved: No Treatment: No Outcome: Continue to monitor - but improving since Effexor was added on Action Required: Not at this time Edema Limbs; Right Arm Grade 1 Start date:05/06/2022 Related to Zometa Treatment: No. Outcome: Continue monitoring Action Required: No.Resolved: No Patient meets all Criteria for Study Participation: Yes Patient knows to RTC in 6 months for follow-up visit. Patient knows to call in the interim for any questions or concerns. Patient has contact information for Yenny Posadas Research Nurse and Dr. Byrd and , along with the 24 hour On-Call number for the On-Call Oncology Fellow ([phone]). DANA Bond, RN Clinical Research Nurse [phone] History of Present illness Narrative* Yenny Posadas RN - 05/23/2024 10:21 AM EDT IRB# [id number] Title: NRG BR007: A Phase III Clinical Trial Evaluating De- Escalation of Breast Radiation for Conservative Treatment of Stage I, Hormone Sensitive, Her2-Negative, Oncotype Recurrence Score <= 18 Breast Cancer. Participant Information: Informed Consent Signed 11/18/2021 Registered: 11/18/2021 Randomization Date: 11/18/2021 Treatment Arm: HT - TA2 Study ID [id number] Consent to optional samples Yes Staging/Diagnosis pT1b pN0(sn) M0 ER/AR positive, HER2 negative stage IA Study Status Follow Up Current Treatment Plan: Treatment Dose Start Date Frequency End date exemestane (AROMASIN) 25/mg 11/25/2021 Daily Clinical Trial Specific Testing Test Dates Completed Due Date Mammogram Scan 04/22/202404/2025 Clinical Trial Draw 11/17/202211/2024 Year 3 QOLs 11/2023 QOLS were completed in agu[place] via [employer] 11/2024 Baseline Weight 89.8 (11/15/2021) 95.7 Creatinine Clearance N/A Patient here today for 30 month post randomization visit. Patient expressed no new symptoms. Patients dry skin has resolved. Patient feeling much more herself still has some issues with her hot flashes, but not terrible. Patient states compliance with endocrine therapy. No missed doses. Patient ECOG 0/ KPS 100 Vitals: 05/23/24 08:35 Weight 95.7 kg (210 lb 15.7 oz) BSA 0 BMI 0 Temp 37.3 C (99.2 F) Resp 16 Pulse 82 BP 144/86 SpO2 96 % Current medications reviewed with patient as reported below: Current Outpatient Medications on File Prior to Visit Medication Sig Start/Stop Use [START ON 11/25/2021] exemestane (AROMASIN) 25 mg tablet Take 1 tablet by mouth once daily. Start:11/25/2021 endocrine therapy cyclobenzaprine (FLEXERIL) 10 mg tablet Take 0.5-1 tablets by mouth three times daily as needed formuscle spasm. Start: 11/15/2021 Stopped:12/07/2021 Start:03/09/2022 Muscle relaxer meloxicam (MOBIC) 15 mg tablet Take 1 tablet by mouth once daily. Start: 07/23/2021 Stopped:09/06/2021 Start:03/09/2022 Pain buPROPion SR (WELLBUTRIN SR) 150 mg 12 hr tablet Take 1 tablet by mouth twice daily. Start:07/07/2014 Stop:05/13/2022 Depression and Smoking Cessation omeprazole (PRILOSEC) 20 mg capsule Take 20 mg by mouth once daily. Start:2019 GERD MULTI-VITAMIN ORAL Take by mouth once daily. Start: >15 years Supplement fluticasone (FLONASE) 50 mcg/actuation nasal spray Use 2 Sprays in each nostril once daily. Rinse mouth after use. Start: 07/12/2013 Allergies Vanalafexine (EFFEXOR XR) 150 mg Take by mouth once daily. Start:05/14/2022 Depression Citracal with vitamin D Take by mouth once daily. Start:02/13/2022 Supplement No current facility-administered medications on file prior to visit. Baseline Toxicities per CTCAE v. 5: All predate therapy, are chronic conditions and will not be actively followed unless they worsen during the clinical trial. Pain; Other; bilateral knees: Grade 1 Start date:PRIOR TO STUDY Unrelated to study drug - Resolved:No Treatment: Meloxicam Outcome: Continue to monitor Action Required: Not at this time Dry Mouth Grade 1 Start date:PRIOR TO STUDY - Unrelated to study drug - Resolved: No Treatment: No Outcome: Continue to monitor Action Required: Not at this time Bloating - Grade 1 - Start date:PRIOR TO STUDY -reported 11/24/2023 Unrelated to study drug - HerniaRepair Treatment: No. Outcome: Ongoing Action Required: None Resolved: No Constipation - Grade 1 - Start date:PRIOR TO STUDY -reported 11/24/2023 Unrelated to study drug - Hernia Repair Treatment: No. Outcome: Ongoing Action Required: None Resolved: No Toxicities per CTCAE v. 5 Hypertension; Grade 2 Start date:02/12/2022 Increased:05/23/2024 Unrelated to study drug - Resolved: No Treatment: No Outcome: Continue to monitor Action Required: Not at this time Hot Flashes; Grade 1 Start date:02/12/2022 Related to study drug - Resolved: No Treatment: No Outcome: Continue to monitor - but improving since Effexor was added on Action Required: Not at this time Edema Limbs; Right Arm Grade 1 Start date:05/06/2022 Related to Zometa Treatment: No. Outcome: Continue monitoring Action Required: No.Resolved: No Patient meets all Criteria for Study Participation: Yes Patient knows to RTC in 6 months for follow-up visit. Patient knows to call in the interim for any questions or concerns. Patient has contact information for Yenny Wilson Nurse and Dr. Byrd and , along with the 24 hour On-Call number for the On-Call Oncology Fellow ([phone]). DANA Bond, RN Clinical Research Nurse [phone] documented in this encounterB[facility] NoteHNO ID: [id number] Author: STEPHANIE CRAWFORD APRN.BANK ANALYST Service: ? Author Type: Nurse Practitioner Type: Progress Notes Filed: 05/24/2024 12:22 Note Text: Chief Complaint Patient presents with: Established Patient HPI: Rebeca Wilson is a 58 year old female who presents here today for follow up breast cancer. Per Dr. Zavaleta's previous note: H/o GERD, multinodular goiter, seborrheic keratosis, arthralgia of the hands, prior COVID-19 infection, obesity and recent diagnosis of invasive ductal carcinoma of the right breast. She developed an abrasion of the right upper breast along where a new bra strap clasp had rubbed it. She was evaluated by Dr. Johnson who noted an approximate 6 to 7 x 5 cm area of dense induration/erythema of the right breast upper chest wall. It felt fibrous without fluctuance. The skin was excoriated for about 1 to 1-1/2 cm with white fibrous tissue noted. Patient underwent diagnostic mammogram on 07/17/2021. There was a 6 x 5 x 5 mm oval mass with a circumscribed margin in the right breast at 1:00 posterior depth 3 cm from the nipple. It appeared hypoechoic with internal echoes on ultrasound and it correlated with the mammogram findings. There was slight thickening of the single axillary lymph node of 4 mm. Patient underwent an ultrasound-guided core needle biopsy on 08/20/2021. Pathology: Invasive mammary carcinoma, provisional histologic grade 2. ER +91 to 100%, strong staining intensity. AR positive, 81 to 90%, strong staining intensity HER2 negative, 1+ on IHC. Patient underwent a right breast GREGORY Public Relations Supervisor localized lumpectomy, right sentinel lymph node mapping and biopsy on 10/07/2021. Pathology: A. Right axilla, sentinel lymph nodes, excision: -Two lymph nodes, negative for metastatic carcinoma (0/2), (please see comment). B. Right breast, lumpectomy: - Invasive mammary carcinoma with mixed ductal and lobular features, Ephraim grade 2, measuring 7 mm in greatest dimension, (please see comment and synoptic report). 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 Right breast, anterior margin, excision: - Unremarkable breast parenchyma D. Right breast, posterior margin, excision: - Unremarkable breast parenchyma E. Right breast, superior margin, excision: - Unremarkable breast parenchyma F. Right breast, inferior margin, excision: - Unremarkable breast parenchyma G. Right breast, medial margin, excision: - Unremarkable breast parenchyma H. Right breast, lateral margin, excision: - Intraductal papilloma with usual ductal hyperplasia Enrolled in IRB# [id number] Title: G BR007: A Phase III Clinical Trial Evaluating De-Escalation of Breast Radiation for Conservative Treatment of Stage I, Hormone Sensitive, Her2-Negative, Oncotype Recurrence Score <= 18 Breast Cancer. Current therapy: 1) Exemestane No new concerns today. Appetite:It's too good. Wt. stable. Energy level:Good. Denies fevers or recent illness. Resp:denies cough or sob Cardiac:denies chest pain/palpitations GI:denies abd pain h/o HH repair, +reflux-takes prilosec, denies n/v, +constipation-takes senna :denies dysuria/hematuria Extrem:denies pain Endo:+hot flashes Come and go. They haven't been as bad recently. They do not wake pt. at night. Neuro:denies symptoms of neuropathy Skin:denies rashes Heme:denies bleeding The ROS is otherwise negative. Past medical history, appointments, medications, allergies reviewed. No changes. EXAM: BP 144/86 Pulse 82 Temp 37.3 ?C (99.2 ?F) (Temporal) Wt 95.7 kg (210 lb 15.7 oz) LMP 07/28/2015 (Exact Date) SpO2 96% BMI 34.31 kg/m? APPEARANCE Well appearing, alert, in no acute distress, well-hydrated, well nourished. HEART RRR with normal S1 and S2, no murmurs LUNG clear to auscultation BREAST FEMALE no mass/nodule b/l LYMPH NODES No cervical lymphadenopathy, No supraclavicular lymphadenopathy, and No axillary lymphadenopathy. ABDOMEN bowel sounds normoactive, soft, non-tender EXTREMITIES No edema NEURO Awake, alert and oriented x 3, Normal gait, and No involuntary motions. SKIN Skin color, texture, turgor normal, no suspicious rashes or lesions ASSESSMENT/PLAN: 1. Malignant neoplasm of 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, estrogen receptor positive (HCC) - ICD9: 174.2, V86.0, ICD10: C50.211, Z17.0 pT1b pN0(sn) M0 ER/AR positive, HER2 negative stage IA infiltrating ductal carcinoma of the right breast. Per Dr. Zavaleta's previous note: Assessment: -The patient is a 58-year-old postmenopausal female (no menses in 3 years) who was diagnosed with a pT1b pN0 M0 ER/AR positive, HER2 negative stage IA mixed invasive lobular and ductal carcinoma of the right breast. -Oncotype DX recurrence score 10 indicating 9-year risk of distant recurrence (more content not included)...[facility]03-17-2025 History of Present illness Narrative* Stephanie Crawford APRN.BANK ANALYST - 05/23/2024 8:39 AM EDT Chief Complaint Patient presents with: Established Patient HPI: Rebeca Wilson is a 58 year old female who presents here today for follow up breast cancer. Per Dr. Zavaleta's previous note: H/o GERD, multinodular goiter, seborrheic keratosis, arthralgia of the hands, prior COVID-19 infection, obesity and recent diagnosis of invasive ductal carcinoma of the right breast. She developed an abrasion of the right upper breast along where a new bra strap clasp had rubbed it. She was evaluated by Dr. Johnson who noted an approximate 6 to 7 x 5 cm area of dense induration/erythema of the right breast upper chest wall. It felt fibrous without fluctuance. The skin was excoriated for about 1 to 1-1/2 cm with white fibrous tissue noted. Patient underwent diagnostic mammogram on 07/17/2021. There was a 6 x 5 x 5 mm oval mass with a circumscribed margin in the right breast at 1:00 posterior depth 3 cm from the nipple. It appeared hypoechoic with internal echoes on ultrasound and it correlated with the mammogram findings. There was slight thickening of the single axillary lymph node of 4 mm. Patient underwent an ultrasound-guided core needle biopsy on 08/20/2021. Pathology: Invasive mammary carcinoma, provisional histologic grade 2. ER +91 to 100%, strong staining intensity. AR positive, 81 to 90%, strong staining intensity HER2 negative, 1+ on IHC. Patient underwent a right breast GREGORY Public Relations Supervisor localized lumpectomy, right sentinel lymph node mappingand biopsy on 10/07/2021. Pathology: A. Right axilla, sentinel lymph nodes, excision: -Two lymph nodes, negative for metastatic carcinoma (0/2), (please see comment). B. Right breast, lumpectomy: - Invasive mammary carcinoma with mixed ductal and lobular features, [place] grade 2, measuring 7 mm in greatest dimension, (please see comment and synoptic report). 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 Right breast, anterior margin, excision: - Unremarkable breast parenchyma D. Right breast, posterior margin, excision: - Unremarkable breast parenchyma E. Right breast, superior margin, excision: - Unremarkable breast parenchyma F. Right breast, inferior margin, excision: - Unremarkable breast parenchyma G. Right breast, medial margin, excision: - Unremarkable breast parenchyma H. Right breast, lateral margin, excision: - Intraductal papilloma with usual ductal hyperplasia Enrolled in IRB# [id number] Title: NRG [id number]: A Phase III Clinical Trial Evaluating De-Escalation of Breast Radiation for Conservative Treatment of Stage I, Hormone Sensitive, Her2-Negative, Oncotype Recurrence Score <= 18 Breast Cancer. Current therapy: 1) Exemestane No new concerns today. Appetite:It's too good. Wt. stable. Energy level:Good. Denies fevers or recent illness. Resp:denies cough or sob Cardiac:denies chest pain/palpitations GI:denies abd pain h/o HH repair, +reflux-takes prilosec, denies n/v, +constipation-takes senna :denies dysuria/hematuria Extrem:denies pain Endo:+hot flashes Come and go. They haven't been as bad recently. They do not wake pt. at night. Neuro:denies symptoms of neuropathy Skin:denies rashes Heme:denies bleeding The ROS is otherwise negative. Past medical history, appointments, medications, allergies reviewed. No changes. EXAM: BP 144/86 Pulse 82 Temp 37.3 C (99.2 F) (Temporal) Wt 95.7 kg (210 lb 15.7 oz) LMP 07/28/2015 (Exact Date) SpO2 96% BMI 34.31 kg/m APPEARANCE Well appearing, alert, in no acute distress, well-hydrated, well nourished. HEART RRR with normal S1 and S2, no murmurs LUNG clear to auscultation BREAST FEMALE no mass/nodule b/l LYMPH NODES No cervical lymphadenopathy, No supraclavicular lymphadenopathy, and No axillary lymphadenopathy. ABDOMEN bowel sounds normoactive, soft, non-tender EXTREMITIES No edema NEURO Awake, alert and oriented x 3, Normal gait, and No involuntary motions. SKIN Skin color, texture, turgor normal, no suspicious rashes or lesions ASSESSMENT/PLAN: 1. Malignant neoplasm of 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, estrogen receptor positive(HCC) - ICD9: 174.2, V86.0, ICD10: C50.211, Z17.0 pT1b pN0(sn) M0 ER/AR positive, HER2 negative stage IA infiltrating ductal carcinoma of the right breast. Per Dr. Zavaleta's previous note: Assessment: -The patient is a 58-year-old postmenopausal female (no menses in 3 years) who was diagnosed with apT1b pN0 M0 ER/AR positive, HER2 negative stage IA mixed invasive lobular and ductal carcinoma of the right breast. -Oncotype DX recurrence score 10 indicating 9-year risk of distant recurrence with the use of tamoxifen or AI at 3% with 95/% confidence interval 3 to 4%. -Enrolled in IRB# [id number] Title: NRG BR007: A Phase III Clinical Trial Evaluating De-Escalation of Breast Radiation for Conservative Treatment of Stage I, Hormone Sensitive, Her2-Negative, Oncotype Recurrence Score <= 18 Breast Cancer. -Was randomized to not receive radiation. -Custom cancer panel through [employer] negative for all tested mutations. -ECOG PS is 0. -On therapy with exemestane.Tolerating well with no severe or unusual toxicity. -No further Zometa. Had severe bone pain with first infusion. Plan: -Continue Mobic. -Due for screening mammogram 04/2024. -Continue exemestane. -Continue Citracal with D (or store brand generic) once daily. -Continue venlafaxine 150 mg SR daily. -OV in about 6 months. (F34.1) Persistent depressive disorder Assessment: -Patient had longstanding history of depression. -Potentially exacerbated by hormonal therapy. -Continues to be better on venlafaxine. Plan: -Continue venlafaxine. - No new concerning findings on exam. - Tolerating aromasin well except for hot flashes. - Continue aromasin. - Continue current medications. - Continue follow up with PCP/FIELD MACHINIST. - Mammogram due mid 2025. - Follow up in 6 months. - Pt. aware to call office with any questions/concerns. The sensitive examination was discussed with the Patient or Patient's Authorized Bacon Stringer. Asapplicable, any other physician, advance practice provider, medical student, or other health professional student that will be observing or involved in the sensitive examination for educational or training purposes was discussed with the Patient or Authorized Bacon Stringer. The Patient or Authorized Bacon Stringer has agreed to proceed with the sensitive examination. (Sensitive examination includes inspection and/or palpation of the breasts, pelvis, prostate and anorectal regions) The patient indicates understanding of these issues and agrees with the plan. All documentation from previous visit of 11/24/23-Dr. Zavaleta/myself was copied and pasted, documentation has been reviewed and edited as necessary for today's visit. Stephanie Crawford APRN.JADEN documented [facility] this encounterB[facility] Telephone encounter Note * Telephone Encounter - Akira Pierre MD - 04/25/2024 4:19 PM EST The following approved medication requests have been transmitted electronically. Requested Prescriptions Signed Prescriptions Disp Refills omeprazole (PRILOSEC) 20 mg capsule 90 capsule 3 Sig: Take 1 capsule by mouth once daily. Akira Pierre MD [facility]02-17-2025 Miscellaneous Notes* Telephone Encounter - Akira Pierre MD - 04/25/2024 4:19 PM EST The following approved medication requests have been transmitted electronically. Requested Prescriptions Signed Prescriptions Disp Refills omeprazole (PRILOSEC) 20 mg capsule 90 capsule 3 Sig: Take 1 capsule by mouth once daily. Akira Pierre MD documented in this encounterBrecksville [facility] History of Present illness Narrative* Rosi Milner Mammo Tech - 04/22/2024 7:10 AM EST Radiology Service Progress Note PATIENT NAME: Rebeca Wilson DATE OF SERVICE: April 22, 2024 TIME: 7:51 AM PATIENT IDENTITY VERIFICATION COMPLETED USING TWO (2) IDENTIFIERS: Name and Date of confirmedby patient verbally. FALL SCREENING: Has the patient had 2 falls in the last year or 1 fall with injury or currently using an Ambulatory Assistive Device (Walker, Cane, Wheelchair, Crutches, etc.)? No PATIENT GENDER DATA: Assigned female at . status: : No status:NO. PATIENT RELEVANT IMPLANT DATA REVIEWED: Not Applicable PATIENT PRESENTS WITH AN IMPLANTABLE OR ATTACHED EDUCATIONAL RESOURCE CENTER TEACHER: No RADIOLOGY DEPARTMENT: Mammography PERIPHERAL IV DATA: Not applicable SIGNED BY: Amie Call April 22, 2024 7:51 AM documented in this encounterBrecksville [facility]25 NoteHNO ID: [id number] Author: ROSI MILNER Mammo Tech Service: ? Author Type: Fluoroscope Operator Type: Progress Notes Filed: 04/22/2024 07:51 Note Text: Radiology Service Progress Note PATIENT NAME: Rebeca Wilson DATE OF SERVICE: April 22, 2024 TIME: 7:51 AM PATIENT IDENTITY VERIFICATION COMPLETED USING TWO (2) IDENTIFIERS: Name and Date of confirmed by patient verbally. FALL SCREENING: Has the patient had 2 falls in the last year or 1 fall with injury or currently using an Ambulatory Assistive Device (Walker, Cane, Wheelchair, Crutches, etc.)? No PATIENT GENDER DATA: Assigned female at . status: : No status: NO. PATIENT RELEVANT IMPLANT DATA REVIEWED: Not Applicable PATIENT PRESENTS WITH AN IMPLANTABLE OR ATTACHED EDUCATIONAL RESOURCE CENTER TEACHER: No RADIOLOGY DEPARTMENT: Mammography PERIPHERAL IV DATA: Not applicable SIGNED BY: Rosi Milner [employer] April 22, 2024 7:51 [facility]11-05-2024 Instructions* Patient Instructions* Akira Pierre MD - 01/12/2024 5:38 PM EST - Continue taking Meloxicam 15 mg daily for arthritis pain; prescription updated to include 3 refills to last until next year. - Continue taking Omeprazole and Flonase as needed; both are available [id number]. - Continue taking Effexor as prescribed by Dr. Zavaleta. - Use Flexeril as needed for muscle spasms; note that it may lose potency after five years. - Maintain current diet and weight management as advised by Dr. Zavaleta. - Next annual check-up scheduled for next year. documented in this encounterBrec[facility]ville [facility]11-05-[facility] History of Present illness Narrative* Akira Pierre MD - 01/12/2024 5:12 PM EST This note was created using [facility] Behavior[facility] Health[employer]. Subjective Rebeca Wilson is a 58 year old female. HISTORY Rebeca Wilson is a 58 year old lady here for yearly exam and follow up appointment. Rebeca Wilson is a 58-year-old female with a history of polyarthritis, anxiety, and GERD, presenting for an annual exam and follow-up. Rebeca reports stable health and is currently taking multiple medications. She takes meloxicam 15 mg daily for polyarthritis, which she reports is effective in managing her symptoms. She has one refill left and requests an extension to last until her next annual check-up. She also takes omeprazole, which she obtains [id number], for GERD management. Additionally, she uses Flonase, also [id number], for year-round dog allergies. She is under the care of Dr. Zavaleta, who manages her Effexor prescription for anxiety, which she reports has made a significant difference in her symptoms. She notes that her anxiety is well-controlled and does not bother her. She previously took Wellbutrin but switched to Effexor due to creeping anxiety symptoms. Rebeca has a history of polyarthritis, for which she takes meloxicam. She also has a prescription for Flexeril from December 2021, which she uses infrequently, about twice a year, for muscle spasms related to twisting movements. She reports that the medication is effective in settling down the spasms. She has a history of a hiatal hernia repair, which she reports has healed well. She also mentions ahistory of shingles but declines the shingles vaccine at this time. She has completed her COVID-19 vaccinations and recalls receiving the hepatitis B vaccine but does not remember the exact date. Rebeca reports stable blood pressure readings, primarily in the 110s to 120s range. She notes that her weight has stalled around 211-212 lbs, which she attributes to her medication. She reports that her TSH and T4 levels were within normal range, and she is not on any thyroid medication. She is alsopart of a clinical trial, which she believes is related to some of her recent lab work. 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 exemestane (AROMASIN) 25 mg tablet Take 1 tablet by mouth every afternoon. venlafaxine ER (EFFEXOR XR) 150 mg 24 hr capsule take 1 capsule by mouth once daily calcium carbonate/vitamin D3 (CALTRATE 600 + D ORAL) Take 1 tablet by mouth once daily. cyclobenzaprine (FLEXERIL) 10 mg tablet Take 0.5-1 tablets by mouth three times daily as needed formuscle spasm. omeprazole (PRILOSEC) 20 mg capsule Take 20 mg by mouth once daily. MULTI-VITAMIN ORAL Take 1 tablet by mouth once daily. fluticasone (FLONASE) 50 mcg/actuation nasal spray Use 2 Sprays in each nostril once daily. Rinse mouth after use. No current facility-administered medications for this visit. ALLERGIES Allergen Reactions Zometa [Zoledronic * Other: See Comments Joint tenderness & soreness, difficulty breathing due to severe pain FAMILY HISTORY Problem Relation Age of Onset Hypertension Mother Allergies Mother Cancer Father 57 lung-smoker COPD Sister None Sister Breast Cancer Paternal Grandmother 79 Cancer Paternal Grandmother 89 unknown abdominal cancer Colon Cancer Paternal Grandfather 66 Cancer Paternal Aunt 63 lung - smoker Breast Cancer Paternal Aunt 68 Renal Cell Cancer Paternal Uncle 65 Cancer Paternal Uncle 72 adrenal Breast Cancer Paternal great-grandmother Breast Cancer Other 2 paternal great aunts, unknown ages Social History Tobacco Use Smoking status: Former Current packs/day: 0.00 Average packs/day: 1 pack/day for 32.0 years (32.0 ttl pk-yrs) Types: Cigarettes Start date: 08/04/1983 Quit date: 08/07/2015 Years since quittin.4 Smokeless tobacco: Never Vaping Use Vaping status: Never Used Substance Use Topics Alcohol use: Yes Comment: Not weekly Drug use: No Review of Systems Objective BP 126/82 Pulse 83 Temp 37.2 C (98.9 F) Resp 16 Ht 167 cm (5' 5.75) Wt 95.9 kg (211 lb 6.7 oz) LMP 07/28/2015 (Exact Date) SpO2 98% BMI 34.39 kg/m Last 5 Encounter Wt Readings: Date: Wt: 01/12/2024 95.9 kg (211 lb 6.7 oz) 11/24/2023 95.2 kg (209 lb 14.1 oz) 08/24/2023 96.2 kg (212 lb) 06/02/2023 96.2 kg (212 lb) 06/02/2023 96.3 kg (212 lb 6.4 oz) No waist measurement recorded Estimated body mass index is 34.39 kg/m as calculated from the following: Height as of this encounter: 167 cm (5' 5.75). Weight as of this encounter: 95.9 kg (211 lb 6.7 oz). Last 5 Encounter BP Readings: Date: BP: 01/12/2024 126/82 11/24/2023 134/85 08/24/2023 117/79 06/11/2023 95/51 06/02/2023 118/64 Physical Exam Vitals reviewed. Constitutional: Appearance: Normal appearance. She is well-developed. HENT: Head: Normocephalic and atraumatic. Right Ear: Tympanic membrane, ear canal and external ear normal. Left Ear: Tympanic membrane, ear canal and external ear normal. Nose: Nose normal. Mouth/Throat: Mouth: Mucous membranes are moist. Pharynx: Oropharynx is clear. Eyes: Conjunctiva/sclera: Conjunctivae normal. Pupils: Pupils are equal, round, and reactive to light. Neck: Thyroid: No thyromegaly. Cardiovascular: Rate and Rhythm: Normal rate and regular rhythm. Pulses: Normal pulses. Heart sounds: Normal heart sounds. No murmur heard. No friction rub. No gallop. Pulmonary: Effort: Pulmonary effort is normal. Breath sounds: Normal breath sounds. Abdominal: General: Bowel sounds are normal. There is no distension. Palpations: Abdomen is soft. There is no mass. Tenderness: There is no abdominal tenderness. Musculoskeletal: General: No deformity. Normal range of motion. Right lower leg: No edema. Left lower leg: No edema. Lymphadenopathy: Cervical: No cervical adenopathy. Skin: General: Skin is warm and dry. Coloration: Skin is not jaundiced or pale. Findings: No rash. Neurological: General: No focal deficit present. Mental Status: She is alert and oriented to person, place, and time. Cranial Nerves: No cranial nerve deficit. Sensory: No sensory deficit. Motor: No abnormal muscle tone. Coordination: Coordination normal. Deep Tendon Reflexes: Reflexes normal. Psychiatric: Attention and Perception: Attention and perception normal. Mood and Affect: Mood and affect normal. Speech: Speech normal. Behavior: Behavior normal. Thought Content: Thought content normal. Cognition and Memory: Cognition normal. Judgment: Judgment normal. Latest Ref Rng 10/15/2022 12/12/2022 02/03/2023 03/04/2023 08/18/2023 TSH 0.270 - 4.200 mIU/L 0.382 0.706 0.765 0.480 Free T4 0.9 - 1.7 ng/dL 1.0 1.1 1.1 1.1 Free T3 2.3 - 4.1 pg/mL 3.4 3.2 Dexamethasone ng/dL 345.4 Cortisol,ON DEX,Post <1.8 ug/dL 1.3 Latest Ref Rng 11/21/2021 02/12/2022 05/05/2022 06/20/2022 WBC 3.70 - 11.00 k/uL 6.74 RBC 3.90 - 5.20 m/uL 4.36 Hemoglobin 11.5 - 15.5 g/dL 12.9 Hematocrit 36.0 - 46.0 % 40.1 MCV 80.0 - 100.0 fL 92.0 MCH 26.0 - 34.0 pg 29.6 MCHC 30.5 - 36.0 g/dL 32.2 RDW-CV 11.5 - 15.0 % 12.8 Platelet Count 150 - 400 k/uL 510 (H) MPV 9.0 - 12.7 fL 9.5 Neut% % 51.0 Abs Neut (ANC) 1.45 - 7.50 k/uL 3.43 Lymph% % 38.4 Abs Lymph 1.00 - 4.00 k/uL 2.59 [place]% % 6.5 Abs [place] <0.87 k/uL 0.44 Eosin% % 2.2 Abs Eosin <0.46 k/uL 0.15 Baso% % 0.7 Abs Baso <0.11 k/uL 0.05 Immature Gran % % 1.2 IMMATURE GRANS (ABS) <0.10 k/uL 0.08 NRBC /100 WBC 0.0 Absolute nRBC <0.01 k/uL <0.01 DTYPE Auto Protein, Total 6.3 - 8.0 g/dL 7.5 Albumin 3.9 - 4.9 g/dL 4.4 Calcium 8.5 - 10.2 mg/dL 9.1 9.6 Bilirubin, Total 0.2 - 1.3 mg/dL 0.4 Alkaline Phosphatase 34 - 123 U/L 66 AST 13 - 35 U/L 19 ALT 7 - 38 U/L 22 Glucose 74 - 99 mg/dL 101 (H) 99 BUN 7 - 21 mg/dL 21 20 Creatinine 0.58 - 0.96 mg/dL 0.85 0.74 Sodium 136 - 144 mmol/L 138 140 Potassium 3.7 - 5.1 mmol/L 3.6 (L) 4.2 Chloride 97 - 105 mmol/L 102 102 CO2 22 - 30 mmol/L 28 28 Anion Gap 9 - 18 mmol/L 8 (L) 10 eGFR >=60 mL/min/1.73m 81 95 Triglyceride 149 mg/dL 172 ! (E) CHOLESTEROL, TOTAL 0 - 200 MG/DL 261 ! (E) HDC-L 41 mg/dL 45 ! (E) LDL Chol, calculated 130 MG/DL 184 ! (E) Vitamin D 25 Hydroxy 31.0 - 80.0 ng/mL 35.7 TSH 0.270 - 4.200 mIU/L 0.051 (L) Legend: ! Abnormal (H) High (L) Low (E) External lab result Assessment and Plan # Routine medical exam (Z00.00) - Annual exam completed. - Vital signs stable; blood pressure readings consistently within normal range (110s-120s systolic). - Weight stable at 211-212 lbs. - Physical examination unremarkable; heart and lung sounds clear, no edema noted. - Reviewed recent lab results: TSH and T4 within normal limits, LDL 180s mg/dL, HDL 45 mg/dL, triglycerides 172 mg/dL. - No additional labs ordered at this time. - Follow-up in one year. # Chronic pain of both knees (M25.561) # Arthralgia of hands, bilateral (M25.541) # Polyarthritis (M13.0) - Chronic pain managed with meloxicam 15 mg daily. - Refilled meloxicam prescription with instructions to cancel previous refills; prescription sent to [facility] on [facility]. - Continue current management. # Allergic rhinitis due to animal hair and dander (J30.81) - Managed with [id number] Flonase. - Updated medication list to reflect jjdc-vgb-cykmigl status. # Encounter for long-term current use of medication (Z79.489) - Medications reviewed: Meloxicam, omeprazole (OTC), Effexor, Flonase (OTC), Flexeril. - Effexor managed by Dr. Alvarado; patient reports good control of anxiety symptoms. - Flexeril used infrequently (twice a year); current supply sufficient. # Screening for depression (Z13.31) # Encounter for screening examination for other mental health and behavioral disorders (Z13.39) - Depression and anxiety screenings completed; no symptoms reported. - Effexor effective in managing anxiety. Akira Pierre MD documented in this encounterBrecksville [facility] NoteHNO ID: [id number] Author: AKIRA PIERRE MD Service: ? Author Type: Physician Type: Progress Notes Filed: 01/12/2024 17:40 Note Text: This note was created using [employer]. Subjective Rebeca Wilson is a 58 year old female. HISTORY Rebeca Wilson is a 58 year old lady here for yearly exam and follow up appointment. Rebeca Wilson is a 58-year-old female with a history of polyarthritis, anxiety, and GERD, presenting for an annual exam and follow-up. Rebeca reports stable health and is currently taking multiple medications. She takes meloxicam 15 mg daily for polyarthritis, which she reports is effective in managing her symptoms. She has one refill left and requests an extension to last until her next annual check-up. She also takes omeprazole, which she obtains [id number], for GERD management. Additionally, she uses Flonase, also [id number]-[id number], for year-round dog allergies. She is under the care of Dr. Zavaleta, who manages her Effexor prescription for anxiety, which she reports has made a significant difference in her symptoms. She notes that her anxiety is well-controlled and does not bother her. She previously took Wellbutrin but switched to Effexor due to creeping anxiety symptoms. Rebeca has a history of polyarthritis, for which she takes meloxicam. She also has a prescription for Flexeril from December 2021, which she uses infrequently, about twice a year, for muscle spasms related to twisting movements. She reports that the medication is effective in settling down the spasms. She has a history of a hiatal hernia repair, which she reports has healed well. She also mentions a history of shingles but declines the shingles vaccine at this time. She has completed her COVID-19 vaccinations and recalls receiving the hepatitis B vaccine but does not remember the exact date. Rebeca reports stable blood pressure readings, primarily in the 110s to 120s range. She notes that her weight has stalled around 211-212 lbs, which she attributes to her medication. She reports that her TSH and T4 levels were within normal range, and she is not on any thyroid medication. She is also part of a clinical trial, which she believes is related to some of her recent lab work. 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 exemestane (AROMASIN) 25 mg tablet Take 1 tablet by mouth every afternoon. venlafaxine ER (EFFEXOR XR) 150 mg 24 hr capsule take 1 capsule by mouth once daily calcium carbonate/vitamin D3 (CALTRATE 600 + D ORAL) Take 1 tablet by mouth once daily. cyclobenzaprine (FLEXERIL) 10 mg tablet Take 0.5-1 tablets by mouth three times daily as needed for muscle spasm. omeprazole (PRILOSEC) 20 mg capsule Take 20 mg by mouth once daily. MULTI-VITAMIN ORAL Take 1 tablet by mouth once daily. fluticasone (FLONASE) 50 mcg/actuation nasal spray Use 2 Sprays in each nostril once daily. Rinse mouth after use. No current facility-administered medications for this visit. ALLERGIES Allergen Reactions Zometa [Zoledronic * Other: See Comments Joint tenderness AND soreness, difficulty breathing due to severe pain FAMILY HISTORY Problem Relation Age of Onset Hypertension Mother Allergies Mother Cancer Father 57 lung-smoker COPD Sister None Sister Breast Cancer Paternal Grandmother 79 Cancer Paternal Grandmother 89 unknown abdominal cancer Colon Cancer Paternal Grandfather 66 Cancer Paternal Aunt 63 lung - smoker Breast Cancer Paternal Aunt 68 Renal Cell Cancer Paternal Uncle 65 Cancer Paternal Uncle 72 adrenal Breast Cancer Paternal great-grandmother Breast Cancer Other 2 paternal great aunts, unknown ages Social History Tobacco Use Smoking status: Former Current packs/day: 0.00 Average packs/day: 1 pack/day for 32.0 years (32.0 ttl pk-yrs) Types: Cigarettes Start date: 08/04/1983 Quit date: 08/07/2015 Years since quittin.4 Smokeless tobacco: Never Vaping Use Vaping status: Never Used Substance Use Topics Alcohol use: Yes Comment: Not weekly Drug use: No Review of Systems Objective BP 126/82 Pulse 83 Temp 37.2 ?C (98.9 ?F) Resp 16 Ht 167 cm (5' 5.75) Wt 95.9 kg (211 lb 6.7 oz) LMP 07/28/2015 (Exact Date) SpO2 98% BMI 34.39 kg/m? Last 5 Encounter Wt Readings: Date: Wt: 01/12/2024 95.9 kg (211 lb 6.7 oz) 11/24/2023 95.2 kg (209 lb 14.1 oz) 08/24/2023 96.2 kg (212 lb) 06/02/2023 96.2 kg (212 lb) 06/02/2023 96.3 kg (212 lb 6.4 oz) No waist measurement recorded Estimated body mass index is 34.39 kg/m? as calculated from the following: Height as of this enco (more content not included)...[facility] 11-25-2023 Telephone encounter Note* Telephone Encounter - Akira Pierre MD - 11/25/2023 4:12 PM EDT The following approved medication requests have been transmitted electronically. Requested Prescriptions Pending Prescriptions Disp Refills meloxicam (MOBIC) 15 mg tablet 90 tablet 1 Sig: Take 1 tablet by mouth once daily. Akira Pierre MD [facility]09-18-2024 Miscellaneous Notes* Telephone Encounter - Akira Pierre MD - 11/25/2023 4:12 PM EDT The following approved medication requests have been transmitted electronically. Requested Prescriptions Pending Prescriptions Disp Refills meloxicam (MOBIC) 15 mg tablet 90 tablet 1 Sig: Take 1 tablet by mouth once daily. Akira Pierre MD * Telephone Encounter - Georgia Jorgensen LPN - 11/25/2023 8:46 AM EDT Prescription Refill Information The patient has been identified by name and date of : Yes Caregiver verified no other encounters exist for this prescription request: Yes Caregiver confirmed with patient/requestor that no other refills are due, in the near future, with this provider at this time: Yes The last office visit in the department: 01/06/23 Does the patient have a future office visit with this provider/department: Yes 01/12/24 Requested Prescriptions Pending Prescriptions Disp Refills meloxicam (MOBIC) 15 mg tablet 90 tablet 1 Sig: Take 1 tablet by mouth once daily. Georgia Jorgensen LPN November 25, 2023 8:47 AM documented in [facility] encounter[facility] Telephone encounter Note * Telephone Encounter - Georgia Jorgensen LPN - 11/25/2023 8:46 AM EDT Prescription Refill Information The patient has been identified by name and date of : Yes Caregiver verified no other encounters exist for this prescription request: Yes Caregiver confirmed with patient/requestor that no other refills are due, in the near future, with this provider at this time: Yes The last office visit in the department: 01/06/23 Does the patient have a future office visit with this provider/department: Yes 01/12/24 Requested Prescriptions Pending Prescriptions Disp Refills meloxicam (MOBIC) 15 mg tablet 90 tablet 1 Sig: Take 1 tablet by mouth once daily. Georgia Jorgensen LPN November 25, 2023 8:47 AM [facility]09-17-[facility]24 NoteHNO ID: [id number] Author: YENNY POSADAS RN Service: ? Author Type: Registered Nurse Type: Progress Notes Filed: 11/26/2023 12:23 Note Text: IRB# [id number] Title: NRG BR007: A Phase III Clinical Trial Evaluating De-Escalation of Breast Radiation for Conservative Treatment of Stage I, Hormone Sensitive, Her2-Negative, Oncotype Recurrence Score <= 18 Breast Cancer. Participant Information: Informed Consent Signed 11/18/2021 Registered: 11/18/2021 Randomization Date: 11/18/2021 Treatment Arm: HT - TA2 Study ID [id number] Consent to optional samples Yes Staging/Diagnosis pT1b pN0(sn) M0 ER/AR positive, HER2 negative stage IA Study Status Follow Up Current Treatment Plan: Treatment Dose Start Date Frequency End date exemestane (AROMASIN) 25/mg 11/25/2021 Daily Clinical Trial Specific Testing Test Dates Completed Due Date Mammogram Scan 04/23/202304/2024 Clinical Trial Draw 11/17/202211/2024 Year 3 QOLs 11/2023 QOLS were completed in [place] via [employer] 11/2024 Baseline Weight 89.8 (11/15/2021) 95.5 Creatinine Clearance N/A Patient here today for 24 month post randomization visit. Patient expressed no new symptoms. Patients dry skin has resolved. Patient feeling much more herself - since her gastro/abdominal pain mostly resolved since hernia repair. She still has some issues with her hot flashes, but not terrible. Patient states compliance with endocrine therapy. No missed doses. Patient ECOG 0/ KPS 100 Vitals: 11/24/23 08:15 Weight 95.2 kg (209 lb 14.1 oz) BSA 0 BMI 0 Resp 18 Pulse 82 BP 134/85 SpO2 96 % Current medications reviewed with patient as reported below: Current Outpatient Medications on File Prior to Visit Medication Sig Start/Stop Use [START ON 11/25/2021] exemestane (AROMASIN) 25 mg tablet Take 1 tablet by mouth once daily. Start:11/25/2021 endocrine therapy cyclobenzaprine (FLEXERIL) 10 mg tablet Take 0.5-1 tablets by mouth three times daily as needed for muscle spasm. Start: 11/15/2021 Stopped:12/07/2021 Start:03/09/2022 Muscle relaxer meloxicam (MOBIC) 15 mg tablet Take 1 tablet by mouth once daily. Start: 07/23/2021 Stopped:09/06/2021 Start:03/09/2022 Pain buPROPion SR (WELLBUTRIN SR) 150 mg 12 hr tablet Take 1 tablet by mouth twice daily. Start:07/07/2014 Stop:05/13/2022 Depression and Smoking Cessation omeprazole (PRILOSEC) 20 mg capsule Take 20 mg by mouth once daily. Start:2019 GERD MULTI-VITAMIN ORAL Take by mouth once daily. Start: >15 years Supplement fluticasone (FLONASE) 50 mcg/actuation nasal spray Use 2 Sprays in each nostril once daily. Rinse mouth after use. Start: 07/12/2013 Allergies Vanalafexine (EFFEXOR XR) 150 mg Take by mouth once daily. Start:05/14/2022 Depression Citracal with vitamin D Take by mouth once daily. Start:02/13/2022 Supplement No current facility-administered medications on file prior to visit. Baseline Toxicities per CTCAE v. 5: All predate therapy, are chronic conditions and will not be actively followed unless they worsen during the clinical trial. Pain; Other; bilateral knees: Grade 1 Start date:PRIOR TO STUDY Unrelated to study drug - Resolved: No Treatment: Meloxicam Outcome: Continue to monitor Action Required: Not at this time Dry Mouth Grade 1 Start date:PRIOR TO STUDY - Unrelated to study drug - Resolved: No Treatment: No Outcome: Continue to monitor Action Required: Not at this time Bloating - Grade 1 - Start date:PRIOR TO STUDY -reported 11/24/2023 Unrelated to study drug - Hernia Repair Treatment: No. Outcome: Ongoing Action Required: None Resolved: No Constipation - Grade 1 - Start date:PRIOR TO STUDY -reported 11/24/2023 Unrelated to study drug - Hernia Repair Treatment: No. Outcome: Ongoing Action Required: None Resolved: No Toxicities per CTCAE v. 5 Hypertension; Grade 1 Start date:02/12/2022 Unrelated to study drug - Resolved: No Treatment: No Outcome: Continue to monitor Action Required: Not at this time Hot Flashes; Grade 1 Start date:02/12/2022 Related to study drug - Resolved: No Treatment: No Outcome: Continue to monitor - but improving since Effexor was added on Action Required: Not at this time Edema Limbs; Right Arm Grade 1 Start date:05/06/2022 Related to Zometa Treatment: No. Outcome: Continue monitoring Action Required: No.Resolved: No Abdominal Pain - Grade 2 - Start date:03/09/2023 Unrelated to study drug - Hernia Repair Treatment: No. Outcome: Ongoing Action Required: CT and referral GI Resolved: Yes Patient meets all Criteria for Study Participation: Yes Patient knows to RTC in 6 months for follow-up visit. Patient knows to call in the interim for any questions or concerns. Patient has contact information for Yenny Posadas Research Nurse and Dr. Byrd and , along with the 24 hour On-Call number for the On-Call Oncology Fellow ([phone]). DANA Bond, RN Clinical Research Nurse [phone]-17-[facility] History of Present illness Narrative* Yenny Posadas RN - 11/24/2023 9:15 AM EDT IRB# [id number] Title: NRG BR007: A Phase III Clinical Trial Evaluating De- Escalation of Breast Radiation for Conservative Treatment of Stage I, Hormone Sensitive, Her2-Negative, Oncotype Recurrence Score <= 18 Breast Cancer. Participant Information: Informed Consent Signed 11/18/2021 Registered: 11/18/2021 Randomization Date: 11/18/2021 Treatment Arm: HT - TA2 Study ID [id number] Consent to optional samples Yes Staging/Diagnosis pT1b pN0(sn) M0 ER/AR positive, HER2 negative stage IA Study Status Follow Up Current Treatment Plan: Treatment Dose Start Date Frequency End date exemestane (AROMASIN) 25/mg 11/25/2021 Daily Clinical Trial Specific Testing Test Dates Completed Due Date Mammogram Scan 04/23/202304/2024 Clinical Trial Draw 11/17/202211/2024 Year 3 QOLs 11/2023 Baseline Weight 89.8 (11/15/2021) 95.5 Creatinine Clearance N/A Patient here today for 24 month post randomization visit. Patient expressed no new symptoms. Patients dry skin has resolved. Patient feeling much more herself - since her gastro/abdominal pain mostlyresolved since hernia repair. She still has some issues with her hot flashes, but not terrible. Patient states compliance with endocrine therapy. No missed doses. Patient ECOG 0/ KPS 100 Vitals: 11/24/23 08:15 Weight 95.2 kg (209 lb 14.1 oz) BSA 0 BMI 0 Resp 18 Pulse 82 BP 134/85 SpO2 96 % Current medications reviewed with patient as reported below: Current Outpatient Medications on File Prior to Visit Medication Sig Start/Stop Use [START ON 11/25/2021] exemestane (AROMASIN) 25 mg tablet Take 1 tablet by mouth once daily. Start:11/25/2021 endocrine therapy cyclobenzaprine (FLEXERIL) 10 mg tablet Take 0.5-1 tablets by mouth three times daily as needed formuscle spasm. Start: 11/15/2021 Stopped:12/07/2021 Start:03/09/2022 Muscle relaxer meloxicam (MOBIC) 15 mg tablet Take 1 tablet by mouth once daily. Start: 07/23/2021 Stopped:09/06/2021 Start:03/09/2022 Pain buPROPion SR (WELLBUTRIN SR) 150 mg 12 hr tablet Take 1 tablet by mouth twice daily. Start:07/07/2014 Stop:05/13/2022 Depression and Smoking Cessation omeprazole (PRILOSEC) 20 mg capsule Take 20 mg by mouth once daily. Start:2019 GERD MULTI-VITAMIN ORAL Take by mouth once daily. Start: >15 years Supplement fluticasone (FLONASE) 50 mcg/actuation nasal spray Use 2 Sprays in each nostril once daily. Rinse mouth after use. Start: 07/12/2013 Allergies Vanalafexine (EFFEXOR XR) 150 mg Take by mouth once daily. Start:05/14/2022 Depression Citracal with vitamin D Take by mouth once daily. Start:02/13/2022 Supplement No current facility-administered medications on file prior to visit. Baseline Toxicities per CTCAE v. 5: All predate therapy, are chronic conditions and will not be actively followed unless they worsen during the clinical trial. Pain; Other; bilateral knees: Grade 1 Start date:PRIOR TO STUDY Unrelated to study drug - Resolved:No Treatment: Meloxicam Outcome: Continue to monitor Action Required: Not at this time Dry Mouth Grade 1 Start date:PRIOR TO STUDY - Unrelated to study drug - Resolved: No Treatment: No Outcome: Continue to monitor Action Required: Not at this time Bloating - Grade 1 - Start date:PRIOR TO STUDY -reported 11/24/2023 Unrelated to study drug - HerniaRepair Treatment: No. Outcome: Ongoing Action Required: None Resolved: No Constipation - Grade 1 - Start date:PRIOR TO STUDY -reported 11/24/2023 Unrelated to study drug - Hernia Repair Treatment: No. Outcome: Ongoing Action Required: None Resolved: No Toxicities per CTCAE v. 5 Hypertension; Grade 1 Start date:02/12/2022 Unrelated to study drug - Resolved: No Treatment: No Outcome: Continue to monitor Action Required: Not at this time Hot Flashes; Grade 1 Start date:02/12/2022 Related to study drug - Resolved: No Treatment: No Outcome: Continue to monitor - but improving since Effexor was added on Action Required: Not at this time Edema Limbs; Right Arm Grade 1 Start date:05/06/2022 Related to Zometa Treatment: No. Outcome: Continue monitoring Action Required: No.Resolved: No Abdominal Pain - Grade 2 - Start date:03/09/2023 Unrelated to study drug - Hernia Repair Treatment:No. Outcome: Ongoing Action Required: CT and referral GI Resolved: Yes Patient meets all Criteria for Study Participation: Yes Patient knows to RTC in 6 months for follow-up visit. Patient knows to call in the interim for any questions or concerns. Patient has contact information for Yenny Posadas Research Nurse and Dr. Byrd and , along with the 24 hour On-Call number for the On-Call Oncology Fellow ([phone]). DANA Bond, RN Clinical Research Nurse [phone] documented in this encounterBrecksville [facility] NoteHNO ID: [id number] Author: STEPHANIE CRAWFORD APRN.BANK ANALYST Service: ? Author Type: Nurse Practitioner Type: Progress Notes Filed: 11/24/2023 09:26 Note Text: Chief Complaint Patient presents with: Established Patient HPI: Rebeca Wilson is a 58 year old female who presents here today for follow up breast cancer. Per Dr. Zavaleta's previous note: H/o GERD, multinodular goiter, seborrheic keratosis, arthralgia of the hands, prior COVID-19 infection, obesity and recent diagnosis of invasive ductal carcinoma of the right breast. She developed an abrasion of the right upper breast along where a new bra strap clasp had rubbed it. She was evaluated by Dr. Johnson who noted an approximate 6 to 7 x 5 cm area of dense induration/erythema of the right breast upper chest wall. It felt fibrous without fluctuance. The skin was excoriated for about 1 to 1-1/2 cm with white fibrous tissue noted. Patient underwent diagnostic mammogram on 07/17/2021. There was a 6 x 5 x 5 mm oval mass with a circumscribed margin in the right breast at 1:00 posterior depth 3 cm from the nipple. It appeared hypoechoic with internal echoes on ultrasound and it correlated with the mammogram findings. There was slight thickening of the single axillary lymph node of 4 mm. Patient underwent an ultrasound-guided core needle biopsy on 08/20/2021. Pathology: Invasive mammary carcinoma, provisional histologic grade 2. ER +91 to 100%, strong staining intensity. AR positive, 81 to 90%, strong staining intensity HER2 negative, 1+ on IHC. Patient underwent a right breast GREGORY Public Relations Supervisor localized lumpectomy, right sentinel lymph node mapping and biopsy on 10/07/2021. Pathology: A. Right axilla, sentinel lymph nodes, excision: -Two lymph nodes, negative for metastatic carcinoma (0/2), (please see comment). B. Right breast, lumpectomy: - Invasive mammary carcinoma with mixed ductal and lobular features, [place] grade 2, measuring 7 mm in greatest dimension, (please see comment and synoptic report). 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 Right breast, anterior margin, excision: - Unremarkable breast parenchyma D. Right breast, posterior margin, excision: - Unremarkable breast parenchyma E. Right breast, superior margin, excision: - Unremarkable breast parenchyma F. Right breast, inferior margin, excision: - Unremarkable breast parenchyma G. Right breast, medial margin, excision: - Unremarkable breast parenchyma H. Right breast, lateral margin, excision: - Intraductal papilloma with usual ductal hyperplasia Enrolled in IRB# [id number] Title: NRG BR007: A Phase III Clinical Trial Evaluating De-Escalation of Breast Radiation for Conservative Treatment of Stage I, Hormone Sensitive, Her2-Negative, Oncotype Recurrence Score <= 18 Breast Cancer. Current therapy: 1) Exemestane No new concerns today. Appetite:It's too good. Energy level:Fair. Denies fevers or recent illness. Resp:denies cough or sob Cardiac:denies chest pain/palpitations GI:denies abd pain, n/v, +constipation :denies dysuria/hematuria Extrem:denies pain Endo:+hot flashes Over the past couple weeks I've had more maybe 3-4 per day. They do not wake pt. at night. Neuro:occ. tingling to R hand Skin:denies rashes Heme:denies bleeding The ROS is otherwise negative. Past medical history, appointments, medications, allergies reviewed. No changes. EXAM: BP 134/85 Pulse 82 Wt 95.2 kg (209 lb 14.1 oz) LMP 07/28/2015 (Exact Date) SpO2 96% BMI 33.88 kg/m? APPEARANCE Well appearing, alert, in no acute distress, well-hydrated, well nourished. HEART RRR with normal S1 and S2, no murmurs LUNG clear to auscultation BREAST FEMALE no mass/nodule b/l LYMPH NODES No cervical lymphadenopathy, No supraclavicular lymphadenopathy, and No axillary lymphadenopathy. ABDOMEN bowel sounds normoactive, soft, non-tender EXTREMITIES No edema NEURO Awake, alert and oriented x 3, Normal gait, and No involuntary motions. SKIN Skin color, texture, turgor normal, no suspicious rashes or lesions ASSESSMENT/PLAN: 1. Malignant neoplasm of 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, estrogen receptor positive (HCC) - ICD9: 174.2, V86.0, ICD10: C50.211, Z17.0 (primary diagnosis) pT1b pN0(sn) M0 ER/AR positive, HER2 negative stage IA infiltrating ductal carcinoma of the right breast. 2. Examination of participant in clinical trial - ICD9: V70.7, ICD10: Z00.[address] Zavaleta's previous note: Assessment: -The patient is a 58-year-old postmenopausal female (no menses in 3 years) who was diagnosed with a pT1b pN0 M0 ER/AR positive, HER2 negative stage IA mixed invasive lobular and ductal carcinoma of the right breast. -Oncotype DX recurrence score 10 indicating 9-year risk of distant recurrence (more content not included)...[facility]09-17-[facility] History of Present illness Narrative* Stephanie Crawford RAMAKRISHNA.BANK ANALYST - 11/24/2023 8:11 AM EDT Chief Complaint Patient presents with: Established Patient HPI: Rebeca Wilson is a 58 year old female who presents here today for follow up breast cancer. Per Dr. Zavaleta's previous note: H/o GERD, multinodular goiter, seborrheic keratosis, arthralgia of the hands, prior COVID-19 infection, obesity and recent diagnosis of invasive ductal carcinoma of the right breast. She developed an abrasion of the right upper breast along where a new bra strap clasp had rubbed it. She was evaluated by Dr. Johnson who noted an approximate 6 to 7 x 5 cm area of dense induration/erythema of the right breast upper chest wall. It felt fibrous without fluctuance. The skin was excoriated for about 1 to 1-1/2 cm with white fibrous tissue noted. Patient underwent diagnostic mammogram on 07/17/2021. There was a 6 x 5 x 5 mm oval mass with a circumscribed margin in the right breast at 1:00 posterior depth 3 cm from the nipple. It appeared hypoechoic with internal echoes on ultrasound and it correlated with the mammogram findings. There was slight thickening of the single axillary lymph node of 4 mm. Patient underwent an ultrasound-guided core needle biopsy on 08/20/2021. Pathology: Invasive mammary carcinoma, provisional histologic grade 2. ER +91 to 100%, strong staining intensity. AR positive, 81 to 90%, strong staining intensity HER2 negative, 1+ on IHC. Patient underwent a right breast GREGORY Public Relations Supervisor localized lumpectomy, right sentinel lymph node mappingand biopsy on 10/07/2021. Pathology: A. Right axilla, sentinel lymph nodes, excision: -Two lymph nodes, negative for metastatic carcinoma (0/2), (please see comment). B. Right breast, lumpectomy: - Invasive mammary carcinoma with mixed ductal and lobular features, [place] grade 2, measuring 7 mm in greatest dimension, (please see comment and synoptic report). 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 Right breast, anterior margin, excision: - Unremarkable breast parenchyma D. Right breast, posterior margin, excision: - Unremarkable breast parenchyma E. Right breast, superior margin, excision: - Unremarkable breast parenchyma F. Right breast, inferior margin, excision: - Unremarkable breast parenchyma G. Right breast, medial margin, excision: - Unremarkable breast parenchyma H. Right breast, lateral margin, excision: - Intraductal papilloma with usual ductal hyperplasia Enrolled in IRB# [id number] Title: G BR007: A Phase III Clinical Trial Evaluating De-Escalation of Breast Radiation for Conservative Treatment of Stage I, Hormone Sensitive, Her2-Negative, Oncotype Recurrence Score <= 18 Breast Cancer. Current therapy: 1) Exemestane No new concerns today. Appetite:It's too good. Energy level:Fair. Denies fevers or recent illness. Resp:denies cough or sob Cardiac:denies chest pain/palpitations GI:denies abd pain, n/v, +constipation :denies dysuria/hematuria Extrem:denies pain Endo:+hot flashes Over the past couple weeks I've had more maybe 3-4 per day. They do not wake pt. at night. Neuro:occ. tingling to R hand Skin:denies rashes Heme:denies bleeding The ROS is otherwise negative. Past medical history, appointments, medications, allergies reviewed. No changes. EXAM: BP 134/85 Pulse 82 Wt 95.2 kg (209 lb 14.1 oz) LMP 07/28/2015 (Exact Date) SpO2 96% BMI 33.88 kg/m APPEARANCE Well appearing, alert, in no acute distress, well-hydrated, well nourished. HEART RRR with normal S1 and S2, no murmurs LUNG clear to auscultation BREAST FEMALE no mass/nodule b/l LYMPH NODES No cervical lymphadenopathy, No supraclavicular lymphadenopathy, and No axillary lymphadenopathy. ABDOMEN bowel sounds normoactive, soft, non-tender EXTREMITIES No edema NEURO Awake, alert and oriented x 3, Normal gait, and No involuntary motions. SKIN Skin color, texture, turgor normal, no suspicious rashes or lesions ASSESSMENT/PLAN: 1. Malignant neoplasm of 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, estrogen receptor positive(HCC) - ICD9: 174.2, V86.0, ICD10: C50.211, Z17.0 (primary diagnosis) pT1b pN0(sn) M0 ER/AR positive, HER2 negative stage IA infiltrating ductal carcinoma of the right breast. 2. Examination of participant in clinical trial - ICD9: V70.7, ICD10: Z00.[address] Zavaleta's previous note: Assessment: -The patient is a 58-year-old postmenopausal female (no menses in 3 years) who was diagnosed with apT1b pN0 M0 ER/AR positive, HER2 negative stage IA mixed invasive lobular and ductal carcinoma of the right breast. -Oncotype DX recurrence score 10 indicating 9-year risk of distant recurrence with the use of tamoxifen or AI at 3% with 95/% confidence interval 3 to 4%. -Enrolled in IRB# [id number] Title: NRG BR007: A Phase III Clinical Trial Evaluating De-Escalation of Breast Radiation for Conservative Treatment of Stage I, Hormone Sensitive, Her2-Negative, Oncotype Recurrence Score <= 18 Breast Cancer. -Was randomized to not receive radiation. -Custom cancer panel through [facility] negative for all tested mutations. -ECOG PS is 0. -On therapy with exemestane.Tolerating well with no severe or unusual toxicity. -No further Zometa. Had severe bone pain with first infusion. Plan: -Continue Mobic. -Due for screening mammogram 04/2024. -Continue exemestane. -Continue Citracal with D (or store brand generic) once daily. -Continue venlafaxine 150 mg SR daily. -OV in about 6 months. (F34.1) Persistent depressive disorder Assessment: -Patient had longstanding history of depression. -Potentially exacerbated by hormonal therapy. -Continues to be better on venlafaxine. Plan: -Continue venlafaxine. - No new concerning findings on exam. - Tolerating aromasin well except for hot flashes. - Continue aromasin. - Continue current medications. - Continue follow up with PCP/FIELD MACHINIST. - Mammogram due mid 2024. - Follow up with Dr. Zavaleta in 6 months. - Pt. aware to call office with any questions/concerns. The sensitive examination was discussed with the Patient or Patient's Authorized Bacon Stringer. Asapplicable, any other physician, advance practice provider, medical student, or other health professional student that will be observing or involved in the sensitive examination for educational or training purposes was discussed with the Patient or Authorized Bacon Stringer. The Patient or Authorized Bacon Stringer has agreed to proceed with the sensitive examination. (Sensitive examination includes inspection and/or palpation of the breasts, pelvis, prostate and anorectal regions) The patient indicates understanding of these issues and agrees with the plan. All documentation from previous visit of 08/24/23-Dr. Zavaleta was copied and pasted, documentation hasbeen reviewed and edited as necessary for today's visit. Stephanie Crawford APRN.JADEN documented in this encounterBrecksville [facility]06[facility] Telephone encounter Note * Telephone Encounter - Amaya Laureano - 08/31/2023 3:26 PM EDT Spoke with patient and scheduled. Amaya Laureano [facility] Miscellaneous Notes* Telephone Encounter - Amaya Laureano - 08/31/2023 3:26 PM EDT Spoke with patient and scheduled. Amaya Laureano * Telephone Encounter - Stefany Beckford - 08/27/2023 3:17 PM EDT 1st attempt. Message left for patient to contact office and schedule a 3 month OV with Stephanie (Aleida is not on this study per Research Nurse) in February appointment already canceled per request. documented in this encounterBrecksville [facility]06-[facility] Telephone encounter Note * Telephone Encounter - Stefany Beckford - 08/27/2023 3:17 PM EDT 1st attempt. Message left for patient to contact office and schedule a 3 month OV with Stephanie (Aleida is not on this study per Research Nurse) in February appointment already canceled per request. [facility] Work Phone: [phone] NoteHNO ID: [id number] Author: NAHUN ZAVALETA, DO Service: ? Author Type: Physician Type: Progress Notes Filed: 08/24/2023 16:23 Note Text: Oncologic problem(s): 1) pT1b pN0(sn) M0 ER/AR positive, HER2 negative stage IA infiltrating ductal carcinoma of the right breast. HPI: The patient is a 58-year-old female with a past medical history significant for GERD, multinodular goiter, seborrheic keratosis, arthralgia of the hands, prior COVID-19 infection, obesity and recent diagnosis of invasive ductal carcinoma of the right breast. She developed an abrasion of the right upper breast along where a new bra strap clasp had rubbed it. She was evaluated by Dr. Johnson who noted an approximate 6 to 7 x 5 cm area of dense induration/erythema of the right breast upper chest wall. It felt fibrous without fluctuance. The skin was excoriated for about 1 to 1-1/2 cm with white fibrous tissue noted. Patient underwent diagnostic mammogram on 07/17/2021. There was a 6 x 5 x 5 mm oval mass with a circumscribed margin in the right breast at 1:00 posterior depth 3 cm from the nipple. It appeared hypoechoic with internal echoes on ultrasound and it correlated with the mammogram findings. There was slight thickening of the single axillary lymph node of 4 mm. Patient underwent an ultrasound-guided core needle biopsy on 08/20/2021. Pathology: Invasive mammary carcinoma, provisional histologic grade 2. ER +91 to 100%, strong staining intensity. AR positive, 81 to 90%, strong staining intensity HER2 negative, 1+ on IHC. Patient underwent a right breast GREGORY Public Relations Supervisor localized lumpectomy, right sentinel lymph node mapping and biopsy on 10/07/2021. Pathology: A. Right axilla, sentinel lymph nodes, excision: -Two lymph nodes, negative for metastatic carcinoma (0/2), (please see comment). B. Right breast, lumpectomy: - Invasive mammary carcinoma with mixed ductal and lobular features, [place] grade 2, measuring 7 mm in greatest dimension, (please see comment and synoptic report). 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 Right breast, anterior margin, excision: - Unremarkable breast parenchyma D. Right breast, posterior margin, excision: - Unremarkable breast parenchyma E. Right breast, superior margin, excision: - Unremarkable breast parenchyma F. Right breast, inferior margin, excision: - Unremarkable breast parenchyma G. Right breast, medial margin, excision: - Unremarkable breast parenchyma H. Right breast, lateral margin, excision: - Intraductal papilloma with usual ductal hyperplasia Enrolled in IRB# [id number] Title: NRG BR007: A Phase III Clinical Trial Evaluating De-Escalation of Breast Radiation for Conservative Treatment of Stage I, Hormone Sensitive, Her2-Negative, Oncotype Recurrence Score <= 18 Breast Cancer. Current therapy: 1) Exemestane Presents for ongoing oncologic management. Interim history: Hiatal hernia repair since last here. Lot of reflux and dyspepsia. Venlafaxine helping better with mood. Better sense of well being. Hot flashes much less frequent. Previous--joint pain in fingers, elbows, knees and ankles improved as well. 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 PMH, medications and allergies personally reviewed by me today. Any changes documented in appropriate section. ROS: Constitutional: Denies episodes of fever and night sweats. Not significantly fatigued. Normal appetite. Neuro: Denies [place], vertigo, dizziness and imbalance. Denies symptoms of neuropathy. HEENT: No recent change in voice, vision or hearing. Resp: Denies cough, wheeze and hemoptysis. Denies shortness of breath at rest. Denies KISER. CVS: Denies exertional chest pain, PND, orthopnea and LE edema. GI: Denies dysgeusia. Denies symptoms of stomatitis. Denies dysphagia and odynophagia. Denies reflux, n/v, change in bowel habits and abdominal pain. : Denies dysuria or gross hematuria. No symptoms of bladder outlet obstruction. Endo: Denies polyuria and polydipsia. Denies heat and cold intolerance. Musculoskeletal: See above. Derm: See above. Heme: Denies unusual bleeding and unexplained bruising. Psych: See above. PHYSICAL EXAM: Vitals: Last menstrual period 07/28/2015. Well-appearing and in no acute distress. EYES: Sclerae are anicteric bilaterally. LYMPHATIC: There is no palpable cervical, supraclavicular or axillary adenopathy. RESPIRATORY: Inspiratory breath sounds are of normal intensity in all santacruz. No rales, wheezes or rhonchi. CARDIOVASCULAR: Rhythm is regular. BREAST: Yolanda Jackson, PETE chaperoned. Right breast--barely noticeable periareolar incision. No concerning mass or nodule bilaterally. ABDOMEN: The abdomen is nondistended. No organom (more content not included)... [facility]06-17-2024 History of Present illness Narrative* Nahun Zavaleta, - 08/24/2023 3:51 PM EDT Oncologic problem(s): 1) pT1b pN0(sn) M0 ER/AR positive, HER2 negative stage IA infiltrating ductal carcinoma of the right breast. HPI: The patient is a 58-year-old female with a past medical history significant for GERD, multinodular goiter, seborrheic keratosis, arthralgia of the hands, prior COVID-19 infection, obesity and recent diagnosis of invasive ductal carcinoma of the right breast. She developed an abrasion of the right upper breast along where a new bra strap clasp had rubbed it. She was evaluated by Dr. Johnson who noted an approximate 6 to 7 x 5 cm area of dense induration/erythema of the right breast upper chest wall. It felt fibrous without fluctuance. The skin was excoriated for about 1 to 1-1/2 cm with white fibrous tissue noted. Patient underwent diagnostic mammogram on 07/17/2021. There was a 6 x 5 x 5 mm oval mass with a circumscribed margin in the right breast at 1:00 posterior depth 3 cm from the nipple. It appeared hypoechoic with internal echoes on ultrasound and it correlated with the mammogram findings. There was slight thickening of the single axillary lymph node of 4 mm. Patient underwent an ultrasound-guided core needle biopsy on 08/20/2021. Pathology: Invasive mammary carcinoma, provisional histologic grade 2. ER +91 to 100%, strong staining intensity. AR positive, 81 to 90%, strong staining intensity HER2 negative, 1+ on IHC. Patient underwent a right breast GREGORY Public Relations Supervisor localized lumpectomy, right sentinel lymph node mappingand biopsy on 10/07/2021. Pathology: A. Right axilla, sentinel lymph nodes, excision: -Two lymph nodes, negative for metastatic carcinoma (0/2), (please see comment). B. Right breast, lumpectomy: - Invasive mammary carcinoma with mixed ductal and lobular features, [place] grade 2, measuring 7 mm in greatest dimension, (please see comment and synoptic report). 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 Right breast, anterior margin, excision: - Unremarkable breast parenchyma D. Right breast, posterior margin, excision: - Unremarkable breast parenchyma E. Right breast, superior margin, excision: - Unremarkable breast parenchyma F. Right breast, inferior margin, excision: - Unremarkable breast parenchyma G. Right breast, medial margin, excision: - Unremarkable breast parenchyma H. Right breast, lateral margin, excision: - Intraductal papilloma with usual ductal hyperplasia Enrolled in IRB# [id number] Title: NRG BR007: A Phase III Clinical Trial Evaluating De-Escalation of Breast Radiation for Conservative Treatment of Stage I, Hormone Sensitive, Her2-Negative, Oncotype Recurrence Score <= 18 Breast Cancer. Current therapy: 1) Exemestane Presents for ongoing oncologic management. Interim history: Hiatal hernia repair since last here. Lot of reflux and dyspepsia. Venlafaxine helping better with mood. Better sense of well being. Hot flashes much less frequent. Previous--joint pain in fingers, elbows, knees and ankles improved as well. 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 PMH, medications and allergies personally reviewed by me today. Any changes documented in appropriate section. ROS: Constitutional: Denies episodes of fever and night sweats. Not significantly fatigued. Normal appetite. Neuro: Denies [place], vertigo, dizziness and imbalance. Denies symptoms of neuropathy. HEENT: No recent change in voice, vision or hearing. Resp: Denies cough, wheeze and hemoptysis. Denies shortness of breath at rest. Denies KISER. CVS: Denies exertional chest pain, PND, orthopnea and LE edema. GI: Denies dysgeusia. Denies symptoms of stomatitis. Denies dysphagia and odynophagia. Denies reflux, n/v, change in bowel habits and abdominal pain. : Denies dysuria or gross hematuria. No symptoms of bladder outlet obstruction. Endo: Denies polyuria and polydipsia. Denies heat and cold intolerance. Musculoskeletal: See above. Derm: See above. Heme: Denies unusual bleeding and unexplained bruising. Psych: See above. PHYSICAL EXAM: Vitals: Last menstrual period 07/28/2015. Well-appearing and in no acute distress. EYES: Sclerae are anicteric bilaterally. LYMPHATIC: There is no palpable cervical, supraclavicular or axillary adenopathy. RESPIRATORY: Inspiratory breath sounds are of normal intensity in all santacruz. No rales, wheezes or rhonchi. CARDIOVASCULAR: Rhythm is regular. BREAST: Yolanda Jackson LPN chaperoned. Right breast--barely noticeable periareolar incision. No concerning mass or nodule bilaterally. ABDOMEN: The abdomen is nondistended. No organomegaly. No tenderness. Extremities: No swelling or edema. SKIN: Small papular lesion right upper cheek. ASSESSMENT/PLAN: (C50.211, Z17.0) Malignant neoplasm of 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, estrogen receptor positive (HCC) (primary encounter diagnosis) (Z00.6) Examination of participant in clinical trial Assessment: -The patient is a 58-year-old postmenopausal female (no menses in 3 years) who was diagnosed with apT1b pN0 M0 ER/AR positive, HER2 negative stage IA mixed invasive lobular and ductal carcinoma of the right breast. -Oncotype DX recurrence score 10 indicating 9-year risk of distant recurrence with the use of tamoxifen or AI at 3% with 95/% confidence interval 3 to 4%. -Enrolled in IRB# [id number] Title: NRG BR007: A Phase III Clinical Trial Evaluating De-Escalation of Breast Radiation for Conservative Treatment of Stage I, Hormone Sensitive, Her2-Negative, Oncotype Recurrence Score <= 18 Breast Cancer. -Was randomized to not receive radiation. -Custom cancer panel through [employer] negative for all tested mutations. -ECOG PS is 0. -On therapy with exemestane.Tolerating well with no severe or unusual toxicity. -No further Zometa. Had severe bone pain with first infusion. Plan: -Continue Mobic. -Due for screening mammogram 04/2024. -Continue exemestane. -Continue Citracal with D (or store brand generic) once daily. -Continue venlafaxine 150 mg SR daily. -OV in about 6 months. (F34.1) Persistent depressive disorder Assessment: -Patient had longstanding history of depression. -Potentially exacerbated by hormonal therapy. -Continues to be better on venlafaxine. Plan: -Continue venlafaxine. Portions of this documentation were copied and pasted from previous office visit notes in order to provide a cohesive continuity of the history. The note has been reviewed and edited and updated as necessary. I spent a total of 20 minutes on the date of the service which included preparing to see the patient, [id number] patient care, completing clinical documentation, obtaining and/or reviewing separately obtained history, performing a medically appropriate examination, counseling and educating the pat ient/family/caregiver, ordering medications, tests, or procedures, communicating with other HCPs (not separately reported), and communicating results to the patient/family/caregiver. Nahun Zavaleta DO documented in this encounterB[facility] Telephone encounter Note * Telephone Encounter - Pilar Mack LPN - 08/21/2023 7:40 AM EDT Prescription Refill Information The patient has been identified by name and date of : Yes Caregiver verified no other encounters exist for this prescription request: Yes Caregiver confirmed with patient/requestor that no other refills are due, in the near future, with this provider at this time: Yes The last office visit in the department: 05/22/2023 Does the patient have a future office visit with this provider/department: Yes Requested Prescriptions Pending Prescriptions Disp Refills venlafaxine ER (EFFEXOR XR) 150 mg 24 hr capsule [Pharmacy Med Name: VENLAFAXINE HCL ER 150 MG CAP]90 capsule 3 Sig: take 1 capsule by mouth once daily Pilar Mack LPN August 21, 2023 7:42 AM [facility]06-14-2024 Miscellaneous Notes* Telephone Encounter - Pilar Mack LPN - 08/21/2023 7:40 AM EDT Prescription Refill Information The patient has been identified by name and date of : Yes Caregiver verified no other encounters exist for this prescription request: Yes Caregiver confirmed with patient/requestor that no other refills are due, in the near future, with this provider at this time: Yes The last office visit in the department: 05/22/2023 Does the patient have a future office visit with this provider/department: Yes Requested Prescriptions Pending Prescriptions Disp Refills venlafaxine ER (EFFEXOR XR) 150 mg 24 hr capsule [Pharmacy Med Name: VENLAFAXINE HCL ER 150 MG CAP]90 capsule 3 Sig: take 1 capsule by mouth once daily Pilar Mack LPN August 21, 2023 7:42 AM documented in this encounterBrecksville [facility] History of Present illness Narrative* Landy Schneider MD - 06/25/2023 8:00 AM EDT FOLLOW UP VISIT - HERNIA NAME: Rebeca [facility] NO.: [id number] DATE OF SERVICE: 06/25/2023 : 1965 REFERRING PHYSICIAN: Akira Pierre MD Rebeca is a patient I am following for a supraumbilical hernia. I performed a laparoscopic ventral hernia repair with mesh on June 11, 2023. The patient was found to have a 2cm ventral hernia 3cm above the umbilicus and a 1.5cm umbilical hernia. A 12cm [place] mesh was placed with an laparoscopic IPOM repair. The patient currently notes an occasional pulling feeling or abdominal wall spasm in her right lateral abdomen lateral to the mesh site. her appetite has been good. she denies fever, chills or abdominal pain. she does note some minimal incisional discomfort. she notes no bulges at the operative site VITALS: Last menstrual period 07/28/2015. On examination, the abdomen is benign. The incisions are healing well without signs of infection orinflammation. There are no signs of recurrent hernia formation. Assessment IMPRESSION: status post laparoscopic ventral hernia repair with mesh PLAN: If the patient notes any problems, she should contact me immediately. she may return to her regularactivities as tolerated, with the exception of no lifting greater than 20 pounds for the next 6 weeks. We discussed that she is still having discomfort in the area after the next few months she should return for evaluation of possible anesthetic nerve injection but that most likely this discomfort will resolve. Diagnoses: (K43.9) Ventral hernia without obstruction or gangrene (primary encounter diagnosis) Return to Clinic: The patient is instructed to follow-up with me as needed. Landy Schneider MD documented in this encounterBrecksville [facility]04[facility] NoteHNO ID: [id number] Author: LANDY SCHNEIDER MD Service: ? Author Type: Physician Type: Progress Notes Filed: 06/26/2023 04:49 Note Text: FOLLOW UP VISIT - HERNIA NAME: Rebeca [facility] NO.: [id number] DATE OF SERVICE: 06/25/2023 : 1965 REFERRING PHYSICIAN: Akira Pierre MD Rebeca is a patient I am following for a supraumbilical hernia. I performed a laparoscopic ventral hernia repair with mesh on June 11, 2023. The patient was found to have a 2cm ventral hernia 3cm above the umbilicus and a 1.5cm umbilical hernia. A 12cm [place] mesh was placed with an laparoscopic IPOM repair. The patient currently notes an occasional pulling feeling or abdominal wall spasm in her right lateral abdomen lateral to the mesh site. her appetite has been good. she denies fever, chills or abdominal pain. she does note some minimal incisional discomfort. she notes no bulges at the operative site VITALS: Last menstrual period 07/28/2015. On examination, the abdomen is benign. The incisions are healing well without signs of infection or inflammation. There are no signs of recurrent hernia formation. Assessment IMPRESSION: status post laparoscopic ventral hernia repair with mesh PLAN: If the patient notes any problems, she should contact me immediately. she may return to her regular activities as tolerated, with the exception of no lifting greater than 20 pounds for the next 6 weeks. We discussed that she is still having discomfort in the area after the next few months she should return for evaluation of possible anesthetic nerve injection but that most likely this discomfort will resolve. Diagnoses: (K43.9) Ventral hernia without obstruction or gangrene (primary encounter diagnosis) Return to Clinic: The patient is instructed to follow-up with me as needed. Landy Schneider, [facility]04-09-2024 Miscellaneous Notes* Telephone Encounter - Vineet Meier RN - 06/16/2023 9:43 AM EDT Form faxed to [facility]. Fax confirmation sheet received. My Chart message sent to Rebeca, advising that the forms had been completed, faxed, and a copy was left at the front desk supervisor for her. Vineet Meier RN * Telephone Encounter - Vineet Meier RN - 06/16/2023 9:41 AM EDT Type of form: FMLA Form received via walk in When form is completed, Fax form to [phone] Form has been forwarded to Physician Mailbox: Dr. Wyatt Meier RN documented in this encounterBrecksville [facility]04[facility]24 NoteHNO ID: [id number] Author: DU GRIFFIN APRN.MOTOR RACER Service: Anesthesiology Author Type: Nurse Binder Lockstitch Type: Anesthesia Procedure Notes Filed: 06/11/2023 08:53 Note Text: ANESTHESIOLOGY PROCEDURE NOTE Airway General Information Procedure Start Time/Medication Administration: 06/11/2023 8:40 AM Patient location during procedure: OR Staffing Anesthesiologist: Jose E Salinas MD MOTOR RACER: Du Griffin APRN.MOTOR RACER Performed by: MOTOR RACER Indications and Patient Condition Indications for airway management: anesthesia Preoxygenated: yes anesthesia circuit Patient position: sniffing Method: asleep Cricoid Pressure: No Manual In-Line Stabilization: No Difficult Mask: No Final Airway Details Final airway type: endotracheal airway Final Endotracheal Airway: ETT Cuffed: yes Successful intubation technique: direct laryngoscopy Endotracheal tube insertion site: oral Blade: [place] Blade size: #2 ETT size (mm): 7.0 Measured from: lips Measurement (cm): 21 Placement verified by: capnometry Cormack-Lehane Classification: grade IIa - partial view of glottis Number of attempts at approach: 1 Failed airway: no Unrecognized esophageal intubation: no Airway not difficult SIGNATURE: Du Griffin APRN.CRNA PATIENT NAME: Rebeca Wilson DATE: June 11, 2023 TIME: 8:52 AM CSN: [id number] NoteHNO ID: [id number] Author: BARBI ARELLANO RN Service: Nursing Author Type: Registered Nurse Type: Nursing Progress Note Filed: 06/11/2023 07:32 Note Text: Other: pt ready for OR, call light in reach, spouse called to bedside.[facility] [id number] Miscellaneous Notes* Telephone Encounter - Mary Moses RN - 06/09/2023 8:18 AM EDT Patient call to give update. Lap ventral hernia surgery is scheduled with DR Schneider in two days- 06/11/23. C/O Clear, runny. drippy nose, some nasal congestion, along with some post nasal drip. Denies cough, no sore throat, no fevers or chills. No fatigue. No sinus pressure. No h/o asthma and is not a smoker. Advised her that she should be able to proceed with surgery as scheduled and that provider will be made aware. Asked her to call if symptoms become worse in the next day to give surgeon an update. Advised her to monitor symptoms closely. Patient verbalizes understanding and has no further questions or concerns at this time. Was advisedto call as needed for future problems. Please advise if other recommendation. documented in this encounterBrecksville [facility]03-26-[facility]24 NoteHNO ID: [id number] Author: LANDY SCHNEIDER MD Service: ? Author Type: Physician Type: Progress Notes Filed: 06/02/2023 18:40 Note Text: HISTORY AND PHYSICAL Rebeca Wilson 1965 REFERRING PHYSICIAN: Nahun Zavaleta DO CHIEF COMPLAINT: Consult (Epigastric pain) HPI: Rebeca is a 57 year old female with a complaint of what she describes as reflux and epigastric pain symptoms. Patient notes some reflux. She was started on ajai-noo-waknsne Prilosec 2 tablets a day and notes improvement in her reflux symptoms. The patient also notes discomfort in her supraumbilical area. She assumed this was her stomach. She does note a tender area in the area of the supraumbilical epigastrium The patient had CT scan performed at [facility]. This demonstrated a very small break in the fascial location but no obvious hernia. The patient denies incisions in that region. The patient notes no symptoms of bowel obstruction and denies nausea or vomiting. The patient was seen by Lorri Rodriguez in hematology oncology office who referred the patient for likely reflux/GERD symptoms. Rebeca was referred for evaluation and treatment. Underwent colonoscopy on January 31, 2020 with a second-degree family history of colon cancer. Her colonoscopy was unremarkable but due to a strong family history of malignancy we recommended 5-year follow-up. The patient is being seen by me today at the request of Dr. Akira Pierre MD for my opinion and advice regarding reflux and epigastric pain. 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 exemestane (AROMASIN) 25 mg tablet take 1 tablet once daily venlafaxine ER (EFFEXOR XR) 150 mg 24 hr capsule TAKE 1 CAPSULE BY MOUTH ONCE DAILY calcium carbonate/vitamin D3 (CALTRATE 600 + D ORAL) Take 1 tablet by mouth once daily. cyclobenzaprine (FLEXERIL) 10 mg tablet Take 0.5-1 tablets by mouth three times daily as needed for muscle spasm. omeprazole (PRILOSEC) 20 mg capsule Take 20 mg by mouth once daily. MULTI-VITAMIN ORAL Take 1 tablet by mouth once daily. fluticasone (FLONASE) 50 mcg/actuation nasal spray Use 2 Sprays in each nostril once daily. Rinse mouth after use. No current facility-administered medications for this visit. ALLERGIES: Zometa [Zoledronic Acid] PERSONAL HISTORY: Social History Tobacco Use Smoking status: Former Packs/day: 1.00 Years: 32.00 Additional pack years: 0.00 Total pack years: 32.00 Types: Cigarettes Start date: 08/04/1983 Quit date: 08/07/2015 Years since quittin.8 Smokeless tobacco: Never Vaping Use Vaping Use: Never used Substance Use Topics Alcohol use: Yes Comment: Not weekly Drug use: No FAMILY HISTORY: FAMILY HISTORY Problem Relation Age of Onset Hypertension Mother Allergies Mother Cancer Father 57 lung-smoker COPD Sister None Sister Breast Cancer Paternal Grandmother 79 Cancer Paternal Grandmother 89 unknown abdominal cancer Colon Cancer Paternal Grandfather 66 Cancer Paternal Aunt 63 lung - smoker Breast Cancer Paternal Aunt 68 Renal Cell Cancer Paternal Uncle 65 Cancer Paternal Uncle 72 adrenal Breast Cancer Paternal great-grandmother Breast Cancer Other 2 paternal great aunts, unknown ages REVIEW OF SYMPTOMS: The review of systems data was entered by the nurse and reviewed by id Nursing Notes: Kimi Talamantes RN 06/02/2023 2:29 PM Addendum REVIEW OF SYSTEMS: General: The patient denies fatigue, denies weight loss, NOTES weight gain, denies feeling hot, and denies feelings of cold. Eyes: The patient denies glaucoma, denies eye injury/surgery, does wear glasses or contacts. Ear/Nose/Throat: The patient NOTES allergies, denies hayfever, denies ear infections, and denies bloody noses. Cardiovascular: The patient denies chest pain, denies heart disease, denies high blood pressure,denies cardiac stent, denies prior heart attack, denies irregular heart beat, denies high cholesterol, denies poor circulation, denies heart failure, other cardiac issues, denies claudication, denies cold feet, denies peripheral arterial stent. Respiratory: The patient denies tuberculosis, denies pneumonia, denies frequent cough, denies pulmonary embolism, denies shortness of breath, and denies coughing up blood. Gastrointestinal: The patient NOTES difficulty swallowin (more content not included)...[facility]03-26-2024 History of Present illness Narrative* Landy Schneider MD - 06/02/2023 6:15 PM EDT HISTORY AND PHYSICAL Rebeca Wilson 1965 REFERRING PHYSICIAN: Nahun Zavaleta DO CHIEF COMPLAINT: Consult (Epigastric pain) HPI: Rebeca is a 57 year old female with a complaint of what she describes as reflux and epigastric pain symptoms. Patient notes some reflux. She was started on [id number] Prilosec 2 tablets a day and notes improvement in her reflux symptoms. The patient also notes discomfort in her supraumbilical area. Sheassumed this was her stomach. She does note a tender area in the area of the supraumbilical epigastrium The patient had CT scan performed at [facility]. This demonstrated a very small break in the fascial location but no obvious hernia. The patient denies incisions in that region. The patient notes no symptoms of bowel obstruction and denies nausea or vomiting. The patient was seen by Lorri Rodriguez in hematology oncology office who referred the patient for likely reflux/GERD symptoms. Rebeca was referred for evaluation and treatment. Underwent colonoscopy on January 31, 2020 with a second-degree family history of colon cancer. Hercolonoscopy was unremarkable but due to a strong family history of malignancy we recommended [id number]. The patient is being seen by me today at the request of Dr. Akira Pierre MD for my opinion and advice regarding reflux and epigastric pain. 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 exemestane (AROMASIN) 25 mg tablet take 1 tablet once daily venlafaxine ER (EFFEXOR XR) 150 mg 24 hr capsule TAKE 1 CAPSULE BY MOUTH ONCE DAILY calcium carbonate/vitamin D3 (CALTRATE 600 + D ORAL) Take 1 tablet by mouth once daily. cyclobenzaprine (FLEXERIL) 10 mg tablet Take 0.5-1 tablets by mouth three times daily as needed formuscle spasm. omeprazole (PRILOSEC) 20 mg capsule Take 20 mg by mouth once daily. MULTI-VITAMIN ORAL Take 1 tablet by mouth once daily. fluticasone (FLONASE) 50 mcg/actuation nasal spray Use 2 Sprays in each nostril once daily. Rinse mouth after use. No current facility-administered medications for this visit. ALLERGIES: Zometa [Zoledronic Acid] PERSONAL HISTORY: Social History Tobacco Use Smoking status: Former Packs/day: 1.00 Years: 32.00 Additional pack years: 0.00 Total pack years: 32.00 Types: Cigarettes Start date: 08/04/1983 Quit date: 08/07/2015 Years since quittin.8 Smokeless tobacco: Never Vaping Use Vaping Use: Never used Substance Use Topics Alcohol use: Yes Comment: Not weekly Drug use: No FAMILY HISTORY: FAMILY HISTORY Problem Relation Age of Onset Hypertension Mother Allergies Mother Cancer Father 57 lung-smoker COPD Sister None Sister Breast Cancer Paternal Grandmother 79 Cancer Paternal Grandmother 89 unknown abdominal cancer Colon Cancer Paternal Grandfather 66 Cancer Paternal Aunt 63 lung - smoker Breast Cancer Paternal Aunt 68 Renal Cell Cancer Paternal Uncle 65 Cancer Paternal Uncle 72 adrenal Breast Cancer Paternal great-grandmother Breast Cancer Other 2 paternal great aunts, unknown ages REVIEW OF SYMPTOMS: The review of systems data was entered by the nurse and reviewed by id Nursing Notes: Kimi Talamantes RN 06/02/2023 2:29 PM Addendum REVIEW OF SYSTEMS: General: The patient denies fatigue, denies weight loss, NOTES weight gain, denies feeling hot, anddenies feelings of cold. Eyes: The patient denies glaucoma, denies eye injury/surgery, does wear glasses or contacts. Ear/Nose/Throat: The patient NOTES allergies, denies hayfever, denies ear infections, and denies bloody noses. Cardiovascular: The patient denies chest pain, denies heart disease, denies high blood pressure,denies cardiac stent, denies prior heart attack, denies irregular heart beat, denies high cholesterol, denies poor circulation, denies heart failure, other cardiac issues, denies claudication, denies cold feet, denies peripheral arterial stent. Respiratory: The patient denies tuberculosis, denies pneumonia, denies frequent cough, denies pulmonary embolism, denies shortness of breath, and denies coughing up blood. Gastrointestinal: The patient NOTES difficulty swallowing, NOTES acid reflux, denies ulcers, deniesvomiting, denies jaundice/hepatitis, denies gallbladder problems, denies black or tarry stools, denies hemorrhoids, denies bleeding from rectum, denies diverticulitis, denies constipation, denies diarrhea, denies loss of stool control, and denies hernias. Kidney/Bladder: The patient denies kidney stones, NOTES urine infections, and denies bloody urine. Skin: The patient denies a history of skin cancer, denies bleeding/changing moles, and denies a history of skin rash. Neurologic: The patient denies a history of epilepsy/convulsions, denies headaches, denies head/spinal injuries, and denies stroke/TIA. Psychiatric: The patient denies psychiatric medications, NOTES depression, and denies voices, denies substance abuse. Endocrine: The patient NOTESthyroid disorders, denies diabetes, and denies hormonal problems. Hematologic: The patient denies a history of bruising, denies bleeding, and denies anemia, denies blood clots. Infections: The patient denies a history of measles and mumps, denies rheumatic fever, and denies sexually transmitted diseases. Musculoskeletal: The patient NOTES back pain/injury, denies back problems, denies sciatica, NOTES knee/foot trouble, NOTES arthritis, or denies gout. When was patient's last Mammogram screening? 04/23/2023 Last Colonoscopy: 01/31/2020 Kimi Talamantes RN PHYSICAL EXAMINATION: General: The patient is 57 year old female, well nourished, well hydrated in no acute distress. Thepatient is oriented to time, place, and person. VITALS: Blood pressure 124/74, pulse 91, temperature 36.8 C (98.2 F), height 167.6 cm (5' 6), weight 96.3 kg (212 lb 6.4 oz), last menstrual period 07/28/2015, SpO2 100%. Body mass index is 34.28 kg/m . HEENT: Normal cephalic, ataumatic, pupils are equally round, sclera are anicteric, mucous membranesare moist, oropharynx is clear. Neck has no masses, asymmetry or lymphadenopathy. Thyroid is unremarkable. Respiratory: Clear to auscultation and percussion. Normal respiratory excursion and pattern. Cardiac: Examination is regular rate and rhythm. Abdominal exam: Soft, nontender, with no palpable masses. No hepatosplenomegaly. A small nonreducible hernias palpable approximately 3 cm superior to the umbilicus. Rectal exam: exam deferred Extremities: no clubbing, cyanosis or edema. No adenopathy. Other: LABORATORY VALUES: As Noted RADIOLOGIC STUDIES: As Noted Her office ultrasound demonstrated a 1.5 cm fascial defect with a mushroom of fat above it consistent with a relatively occult supraumbilical hernia. Assessment IMPRESSION: mid abdomen hernia PLAN: My plan is to perform a laparoscopic ventral hernia repair with mesh. The planned surgical procedure was discussed extensively with the patient. The risks, benefits, anticipated outcomes and possible complications were mentioned. Rebeca wolffands that all hernia repair surgery has a chance ofrecurrence and/or chronic post operative pain. My staff has also explained the procedure in understandable terms and the patient was given the option to take printed material concerning the planned procedure. The patient had the opportunity to ask questions concerning the planned procedure. The patient freely consents to the planned procedure. We discussed that since the patient's epigastric symptoms have improved on Prilosec they will repair the hernia first and consider upper endoscopy later. My findings have been communicated to Lorri Rodriguez & , Dr. Nahun Zavaleta via shared medical record. This note will be forwarded to Akira Pierre MD. Diagnoses: (K43.9) Ventral hernia without obstruction or gangrene (primary encounter diagnosis) (R10.13) Epigastric pain Anticipated CPT Code: Initial anterior abdominal hernia repair: 11021 - <3 cm incarcerated or strangulated Anticipated Anesthetic: General Patient weight: Blood pressure 124/74, pulse 91, temperature 36.8 C (98.2 F), height 167.6 cm (5' 6), weight 96.3 kg (212 lb 6.4 oz), last menstrual period 07/28/2015, SpO2 100%. BMI: Body mass index is 34.28 kg/m . Planned antibiotic: Ancef 2gm IVPB mediation commissioner to OR SCDs needed - Yes Return to Clinic: The patient is instructed to follow-up with me 1 week post operatively. Landy Schneider MD [facility] this encounterB[facility] Telephone encounter Note * Telephone Encounter - Lorri Peng - 06/02/2023 4:00 PM EDT 06/11/2023 LAP HERNIA REPAIR MEJIA [facility]03-26-[facility] Miscellaneous Notes* Telephone Encounter - Lorri Peng - 06/02/2023 4:00 PM EDT 06/11/2023 LAP HERNIA REPAIR MEJIA documented in this encounterBrecksville [facility] Nurse Note* Kimi Talamantes RN - 06/02/2023 2:17 PM EDT REVIEW OF SYSTEMS: General: The patient denies fatigue, denies weight loss, NOTES weight gain, denies feeling hot, anddenies feelings of cold. Eyes: The patient denies glaucoma, denies eye injury/surgery, does wear glasses or contacts. Ear/Nose/Throat: The patient NOTES allergies, denies hayfever, denies ear infections, and denies bloody noses. Cardiovascular: The patient denies chest pain, denies heart disease, denies high blood pressure,denies cardiac stent, denies prior heart attack, denies irregular heart beat, denies high cholesterol, denies poor circulation, denies heart failure, other cardiac issues, denies claudication, denies cold feet, denies peripheral arterial stent. Respiratory: The patient denies tuberculosis, denies pneumonia, denies frequent cough, denies pulmonary embolism, denies shortness of breath, and denies coughing up blood. Gastrointestinal: The patient NOTES difficulty swallowing, NOTES acid reflux, denies ulcers, deniesvomiting, denies jaundice/hepatitis, denies gallbladder problems, denies black or tarry stools, denies hemorrhoids, denies bleeding from rectum, denies diverticulitis, denies constipation, denies diarrhea, denies loss of stool control, and denies hernias. Kidney/Bladder: The patient denies kidney stones, NOTES urine infections, and denies bloody urine. Skin: The patient denies a history of skin cancer, denies bleeding/changing moles, and denies a history of skin rash. Neurologic: The patient denies a history of epilepsy/convulsions, denies headaches, denies head/spinal injuries, and denies stroke/TIA. Psychiatric: The patient denies psychiatric medications, NOTES depression, and denies voices, denies substance abuse. Endocrine: The patient NOTESthyroid disorders, denies diabetes, and denies hormonal problems. Hematologic: The patient denies a history of bruising, denies bleeding, and denies anemia, denies blood clots. Infections: The patient denies a history of measles and mumps, denies rheumatic fever, and denies sexually transmitted diseases. Musculoskeletal: The patient NOTES back pain/injury, denies back problems, denies sciatica, NOTES knee/foot trouble, NOTES arthritis, or denies gout. When was patient's last Mammogram screening? 04/23/2023 Last Colonoscopy: 01/31/2020 Kimi Talamantes RN documented in this encounterBrecksville [facility] Miscellaneous Notes* Telephone Encounter - Nima Hinojosa MA - 06/01/2023 8:25 AM EDT Requested Prescriptions Pending Prescriptions Disp Refills meloxicam (MOBIC) 15 mg tablet 90 tablet 1 Sig: Take 1 tablet by mouth once daily. Date of last office visit in primary care: 01/06/2023 Date of next office visit in primary care: 01/12/2024 Please advise. Thank you. Nima Hinojosa MA. documented in this encounterBrecksville [facility]03-[facility] Miscellaneous Notes* Telephone Encounter - Yenny Posadas RN - 05/27/2023 1:20 PM EDT Left patient a voicemail about her CT results that were already reviewed by Meghann. Yenny Posadas RN documented in this encounterBrecksville [facility]03-[facility] Miscellaneous Notes* Telephone Encounter - Stefany Beckford - 05/26/2023 8:24 AM EDT Patient scheduled * Telephone Encounter - Nahun Zavaleta DO - 05/25/2023 9:09 PM EDT Thank you. Please refer to general surgery for EGD. Nahun Zavaleta DO * Telephone Encounter - Cande Grajeda RN - 05/25/2023 4:36 PM EDT Images from the original note were not included. CT results are available to review. Snipped below from [facility] records. Cande Grajeda RN documented in this encounterBrecksville [facility]03-[facility] History of Present illness Narrative* Yenny Posadas RN - 05/22/2023 2:24 PM EDT IRB# [id number] Title: NRG [id number]: A Phase III Clinical Trial Evaluating De- Escalation of Breast Radiation for Conservative Treatment of Stage I, Hormone Sensitive, Her2-Negative, Oncotype Recurrence Score <= 18 Breast Cancer. Consent Date: 11/18/2021 Randomization Date: 11/18/2021 Treatment ARM: HT - TA2 Patient here today for 18 month post randomization visit. Patient expressed baseline issues - added, as well as, new symptoms. Patients dry skin has resolved. Patient feeling much more herself - besides some new gastro/abdominal pain - she was referred to GI - but she does feel less depressed and anxious since starting Effexor - switched patient to Effexor from Wellbutrin.The patient expressed issues with her hot flashes, but not terrible. However, they are found nothing with the thyroid workup. Otherwise, patient feels they are doing very well. Patient states compliance with endocrine therapy. No missed doses. 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 Start:11/25/2021 endocrine therapy cyclobenzaprine (FLEXERIL) 10 mg tablet Take 0.5-1 tablets by mouth three times daily as needed formuscle spasm. Start: 11/15/2021 Stopped:12/07/2021 Start:03/09/2022 Muscle relaxer meloxicam (MOBIC) 15 mg tablet Take 1 tablet by mouth once daily. Start: 07/23/2021 Stopped:09/06/2021 Start:03/09/2022 Pain buPROPion SR (WELLBUTRIN SR) 150 mg 12 hr tablet Take 1 tablet by mouth twice daily. Start:07/07/2014 Stop:05/13/2022 Depression and Smoking Cessation omeprazole (PRILOSEC) 20 mg capsule Take 20 mg by mouth once daily. Start:2019 GERD MULTI-VITAMIN ORAL Take by mouth once daily. Start: >15 years Supplement fluticasone (FLONASE) 50 mcg/actuation nasal spray Use 2 Sprays in each nostril once daily. Rinse mouth after use. Start: 07/12/2013 Allergies Vanalafexine (EFFEXOR XR) 150 mg Take by mouth once daily. Start:05/14/2022 Depression Citracal with vitamin D Take by mouth once daily. Start:02/13/2022 Supplement No current facility-administered medications on file prior to visit. Baseline Toxicities per CTCAE v. 5: All predate therapy, are chronic conditions and will not be actively followed unless they worsen during the clinical trial. Pain; Other; bilateral knees: Grade 1 Start date:PRIOR TO STUDY Unrelated to study drug - Resolved:No Treatment: Meloxicam Outcome: Continue to monitor Action Required: Not at this time Dry Mouth Grade 1 Start date:PRIOR TO STUDY - Unrelated to study drug - Resolved: No Treatment: No Outcome: Continue to monitor Action Required: Not at this time Toxicities per CTCAE v. 5 Hypertension; Grade 1 Start date:02/12/2022 Unrelated to study drug - Resolved: No Treatment: No Outcome: Continue to monitor Action Required: Not at this time Hot Flashes; Grade 1 Start date:02/12/2022 Related to study drug - Resolved: No Treatment: No Outcome: Continue to monitor - but improving since Effexor was added on Action Required: Not at this time Edema Limbs; Right Arm Grade 1 Start date:05/06/2022 Related to Zometa Treatment: No. Outcome: Continue monitoring Action Required: No.Resolved: No Abdominal Pain - Grade 2 - Start date:03/09/2023 Unrelated to study drug Treatment: No. Outcome: Ongoing Action Required: CT and referral GI Resolved: No Patient meets all Criteria for Study Participation: Yes Patient knows to RTC in 3 months for follow-up visit. Patient knows to call in the interim for any questions or concerns. Patient has contact information for Yenny Wilson Nurse and Dr. Byrd and , along with the 24 hour On-Call number for the On-Call Oncology Fellow ([phone]). DANA Bond, RN Clinical Research Nurse [phone] documented in this encounterBrecksville [facility]03-[facility] Nurse Note* Pilar Mack LPN - 05/22/2023 1:04 PM EDT 6 month F/U , last mamm 04/23/2023 C/O weight gain, a lot of abdominal pressure, gas, heartburn. documented in this encounterBrecksville [facility]03-[facility] History of Present illness Narrative* Aleida Rodriguez - 05/22/2023 1:00 PM EDT Rebeca Wilson 1965 05/22/2023 Oncologic problem(s): 1) pT1b pN0(sn) M0 ER/AR positive, HER2 negative stage IA infiltrating ductal carcinoma of the right breast. HPI: The patient is a 57-year-old female with a past medical history significant for GERD, multinodular goiter, seborrheic keratosis, arthralgia of the hands, prior COVID-19 infection, obesity and recent diagnosis of invasive ductal carcinoma of the right breast. She developed an abrasion of the right upper breast along where a new bra strap clasp had rubbed it. She was evaluated by Dr. Johnson who noted an approximate 6 to 7 x 5 cm area of dense induration/erythema of the right breast upper chest wall. It felt fibrous without fluctuance. The skin was excoriated for about 1 to 1-1/2 cm with white fibrous tissue noted. Patient underwent diagnostic mammogram on 07/17/2021. There was a 6 x 5 x 5 mm oval mass with a circumscribed margin in the right breast at 1:00 posterior depth 3 cm from the nipple. It appeared hypoechoic with internal echoes on ultrasound and it correlated with the mammogram findings. There was slight thickening of the single axillary lymph node of 4 mm. Patient underwent an ultrasound-guided core needle biopsy on 08/20/2021. Pathology: Invasive mammary carcinoma, provisional histologic grade 2. ER +91 to 100%, strong staining intensity. AR positive, 81 to 90%, strong staining intensity HER2 negative, 1+ on IHC. Patient underwent a right breast GREGORY Public Relations Supervisor localized lumpectomy, right sentinel lymph node mappingand biopsy on 10/07/2021. Pathology: A. Right axilla, sentinel lymph nodes, excision: -Two lymph nodes, negative for metastatic carcinoma (0/2), (please see comment). B. Right breast, lumpectomy: - Invasive mammary carcinoma with mixed ductal and lobular features, [place] grade 2, measuring 7 mm in greatest dimension, (please see comment and synoptic report). 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 Right breast, anterior margin, excision: - Unremarkable breast parenchyma D. Right breast, posterior margin, excision: - Unremarkable breast parenchyma E. Right breast, superior margin, excision: - Unremarkable breast parenchyma F. Right breast, inferior margin, excision: - Unremarkable breast parenchyma G. Right breast, medial margin, excision: - Unremarkable breast parenchyma H. Right breast, lateral margin, excision: - Intraductal papilloma with usual ductal hyperplasia Enrolled in IRB# [id number] Title: NRG [id number]: A Phase III Clinical Trial Evaluating De-Escalation of Breast Radiation for Conservative Treatment of Stage I, Hormone Sensitive, Her2-Negative, Oncotype Recurrence Score <= 18 Breast Cancer. Current therapy: 1) Exemestane Presents for ongoing oncologic management. Interim history: Since last visit Ms. Wilson has developed new upper abd pain, tenderness, reflux, worsening for last 3 months. Pain is at midline at umbilicus. Constipation, BM once every 4-5 days. Nausea with palpation. Early satiety. She states that she has started sleeping with head elevated . 4 tums daily, with some relief. Tolerating exemestane well. Venlafaxine helping better with mood. Better sense of well being. Went on trip and forgot to pack medication, notable difference. Wishes to remain on medication. Hot flashes are overall stable. No significant changes. No new joint aches or pains. No SOB, CP, or palpitations. No [place], dizziness, or changes in vision.No rash or skin changes. Deniesbleeding or bruising. No changes in urinary habits. 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 PMH, medications and allergies personally reviewed by me today. Any changes documented in appropriate section. ROS: All systems reviewed on 05/22/2023 with pertinent positives and negatives as outlined in the interval history. PHYSICAL EXAM: Vitals: Last menstrual period 07/28/2015. Well-appearing and in no acute distress. EYES: Sclerae are anicteric bilaterally. LYMPHATIC: There is no palpable cervical, supraclavicular or axillary adenopathy. RESPIRATORY: Inspiratory breath sounds are of normal intensity in all santacruz. No rales, wheezes or rhonchi. CARDIOVASCULAR: Rhythm is regular. BREAST: Right breast and axillary incision well-healed. No concerning mass or nodule bilaterally. ABDOMEN: The abdomen is tender, distended. No organomegaly. No palpable mass. Some guarding. Extremities: No swelling or edema. SKIN: No rash or ulceration. No bruising. I have performed the physical exam today (05/22/2023) and have edited the note to correlate with current findings. ASSESSMENT/PLAN: (C50.211, Z17.0) Malignant neoplasm of 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, estrogen receptor positive (HCC) (primary encounter diagnosis) (Z00.6) Examination of participant in clinical trial Assessment: -The patient is a 56-year-old postmenopausal female (no menses in 3 years) who was diagnosed with apT1b pN0 M0 ER/AR positive, HER2 negative stage IA mixed invasive lobular and ductal carcinoma of the right breast. -Oncotype DX recurrence score 10 indicating 9-year risk of distant recurrence with the use of tamoxifen or AI at 3% with 95/% confidence interval 3 to 4%. -Enrolled in IRB# [id number] Title: NRG [id number]: A Phase III Clinical Trial Evaluating De-Escalation of Breast Radiation for Conservative Treatment of Stage I, Hormone Sensitive, Her2-Negative, Oncotype Recurrence Score <= 18 Breast Cancer. -Was randomized to not receive radiation. -Custom cancer panel through [employer] negative for all tested mutations. -ECOG PS is 0. -On therapy with exemestane.Tolerating well with no severe or unusual toxicity. -No further Zometa. Had severe bone pain with first infusion requiring hospitalization -screening mmg: SAMIR Plan: -OK to continue Tylenol 1000 mg q 12 hours prn in addition to Mobic. -Continue exemestane, tolerating well -Continue Citracal with D (or store brand generic) once daily. -Continue venlafaxine 150 mg SR daily (F34.1) Persistent depressive disorder Assessment: -Patient has longstanding history of depression. -Potentially exacerbated by hormonal therapy. -Doing much better on venlafaxine. Plan: -Continue venlafaxine at current dose Acute upper abd pain - worsening over last 3 months, at midline, umbilicus. No palpable mass. - notes hiatal hernia incidentally seen on prior imaging with GERD, worsening constipation, early satiety, nausea with palpation - GI referral - STAT C/T AP RTC in 3 months Aleida Rodriguez APRN.BANK ANALYST I spent a total of 45 minutes on the date of the service which included preparing to see the patient, [id number] patient care, completing clinical documentation, counseling and educating the patient/family/caregiver, ordering medications, tests, or procedures, and care coordination (not separately reported). Portions of this note including HPI, ROS, impression/plan may have been copied forward as to provide important historical information essential in contributing to medical decision making. Documentation has been reviewed and edited as necessary to support clinical decision making for today's visit and to reflect my own independent evaluation of this patient. documented in this encounter[facility] Miscellaneous Notes* Telephone Encounter - Amaya Laureano - 05/13/2023 4:22 PM EST Patient returned call and rescheduled. Amaya Laureano * Telephone Encounter - Amaya Laureano - 05/13/2023 4:03 PM EST Left message for patient to return call. When she calls, please see if she will change her appointment on 05/[address] Zavaleta request. Amaya Laureano documented in this encounterB[facility] Miscellaneous Notes* Letter - Coordinator, Mammography - 04/23/2023 8:39 AM EST April 23, 2023 PID: [id number] Rebeca Wilson [address] [place] [address] Dear Ms. Wilson, We are pleased to inform you that the results of your recent breast imaging exam on 04/23/2023 are normal. Early detection of cancer is very important. We also understand recommendations regarding breast cancer screening are controversial. Please discuss with your primary care provider which strategy is best for you and whether a mammogram is right for you. Your imaging studies and report will be kept on file at [facility] as part of your permanent medical record and are available for your continuing care. Thank you for allowing us to help in meeting your health care needs. Sincerely, Dr. Miller Interpreting Radiologist [facility] (Normal over 40) documented in this encounterBrec[facility]02-15-2024 History of Present illness Narrative* Rosi Milner Mammo Shira - 04/23/2023 7:30 AM EST Radiology Service Progress Note PATIENT NAME: Rebeca Wilson DATE OF SERVICE: April 23, 2023 TIME: 7:49 AM PATIENT IDENTITY VERIFICATION COMPLETED USING TWO (2) IDENTIFIERS: Name and Date of confirmedby patient verbally. FALL SCREENING: Has the patient had 2 falls in the last year or 1 fall with injury or currently using an Ambulatory Assistive Device (Walker, Cane, Wheelchair, Crutches, etc.)? No PATIENT GENDER DATA: Female. status: : No status: NO. PATIENT RELEVANT IMPLANT DATA REVIEWED: Not Applicable PATIENT PRESENTS WITH AN IMPLANTABLE OR ATTACHED EDUCATIONAL RESOURCE CENTER TEACHER: No RADIOLOGY DEPARTMENT: Mammography PERIPHERAL IV DATA: Not applicable SIGNED BY: Santiago Callo Shira April 23, 2023 7:49 AM documented in this encounterB[facility]02-15-2024 Miscellaneous Notes* Result Encounter Note - Nahun Zavaleta DO - 04/23/2023 7:30 AM EST Mammogram normal. documented in this encounterBrec[facility]12-08-[facility]23 History of Present illness Narrative* Patrice Palencia MD - 02/13/2023 1:46 PM EST VIRTUAL VISIT PROGRESS NOTE This is a virtual visit using [employer] video visit. It required patient-provider interaction for themedical decision making as documented below. I have communicated my name and active licensure. The patient's identity and physical location wereverified at the time of this visit. Either the patient or their legal access services representative has been informed of the risks and benefits of -- and alternatives to -- treatment through a remote evaluation andconsents to proceed with the evaluation remotely. Rebeca Wilson is a 57 year old female seen for follow up low TSH and thyroid nodule. 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 Obese thyroid nodule PAST SURGICAL HISTORY Procedure Laterality Date BIOPSY THYROID 08/2013 BREAST LUMPECTOMY HX 10/2021 COLONOSCOPY FLX DX W/COLLJ SPEC WHEN PFRMD 11/28/2016 COLONOSCOPY FLX DX W/COLLJ SPEC WHEN PFRMD 01/31/2020 TUBAL LIGATION, 1990 FAMILY HISTORY Problem Relation Age of Onset Hypertension Mother Allergies Mother Cancer Father 57 lung-smoker COPD Sister None Sister Breast Cancer Paternal Grandmother 79 Cancer Paternal Grandmother 89 unknown abdominal cancer Colon Cancer Paternal Grandfather 66 Cancer Paternal Aunt 63 lung - smoker Breast Cancer Paternal Aunt 68 Renal Cell Cancer Paternal Uncle 65 Cancer Paternal Uncle 72 adrenal Breast Cancer Paternal great-grandmother Breast Cancer Other 2 paternal great aunts, unknown ages Social History Tobacco Use Smoking status: Former Packs/day: 1.00 Years: 32.00 Additional pack years: 0.00 Total pack years: 32.00 Types: Cigarettes Start date: 08/04/1983 Quit date: 08/07/2015 Years since quittin.5 Smokeless tobacco: Never Vaping Use Vaping Use: Never used Substance Use Topics Alcohol use: Yes Comment: Not weekly Drug use: No Current Outpatient Medications Medication Sig meloxicam (MOBIC) 15 mg tablet take 1 tablet by mouth every day exemestane (AROMASIN) 25 mg tablet take 1 tablet once daily venlafaxine ER (EFFEXOR XR) 150 mg 24 hr capsule TAKE 1 CAPSULE BY MOUTH ONCE DAILY calcium carbonate/vitamin D3 (CALTRATE 600 + D ORAL) Take 1 tablet by mouth once daily. cyclobenzaprine (FLEXERIL) 10 mg tablet Take 0.5-1 tablets by mouth three times daily as needed formuscle spasm. omeprazole (PRILOSEC) 20 mg capsule Take 20 mg by mouth once daily. MULTI-VITAMIN ORAL Take 1 tablet by mouth once daily. fluticasone (FLONASE) 50 mcg/actuation nasal spray Use 2 Sprays in each nostril once daily. Rinse mouth after use. No current facility-administered medications for this visit. ALLERGIES Allergen Reactions Zometa [Zoledronic * Other: See Comments Joint tenderness & soreness, difficulty breathing due to severe pain Interval hx: Doing well. Overall no significant sx of hypo or hyperthyroidism. Thyroid labs normal. No dysphagia, no hoarseness. But states sts feels pressure in the neck when lying down, and feels extending her neck helps some. PHYSICAL EXAMINATION: VIDEO EXAM: (if completed, performed via video enabled technology) GENERAL: alert and appropriate, in no distress, well-hydrated, well nourished, and happy, smiling, interactive. Labs: Component Latest Ref Rng & Units 02/03/2023 TSH 0.270 - 4.200 mIU/L 0.765 Free T4 0.9 - 1.7 ng/dL 1.1 Component Latest Ref Rng & Units 08/19/2022 10/15/2022 12/12/2022 TSI Qualitative Negative Negative TSI <0.55 IU/L <0.10 TSH 0.270 - 4.200 mIU/L 0.057 (L) 0.382 0.706 Free T4 0.9 - 1.7 ng/dL 1.2 1.0 1.1 Free T3 2.3 - 4.1 pg/mL 3.4 3.4 3.2 Component Latest Ref Rng & Units 06/17/2021 06/20/2022 06/23/2022 WBC 3.70 - 11.00 k/uL 6.74 RBC 3.90 - 5.20 m/uL 4.36 Hemoglobin 11.5 - 15.5 g/dL 12.9 Hematocrit 36.0 - 46.0 % 40.1 MCV 80.0 - 100.0 fL 92.0 MCH 26.0 - 34.0 pg 29.6 MCHC 30.5 - 36.0 g/dL 32.2 RDW-CV 11.5 - 15.0 % 12.8 Platelet Count 150 - 400 k/uL 510 (H) MPV 9.0 - 12.7 fL 9.5 Neut% % 51.0 Abs Neut (ANC) 1.45 - 7.50 k/uL 3.43 Lymph% % 38.4 Abs Lymph 1.00 - 4.00 k/uL 2.59 [place]% % 6.5 Abs [place] <0.87 k/uL 0.44 Eosin% % 2.2 Abs Eosin <0.46 k/uL 0.15 Baso% % 0.7 Abs Baso <0.11 k/uL 0.05 Immature Gran % % 1.2 IMMATURE GRANS (ABS) <0.10 k/uL 0.08 NRBC /100 WBC 0.0 Absolute nRBC <0.01 k/uL <0.01 DTYPE Auto Protein, Total 6.3 - 8.0 g/dL 7.5 Albumin 3.9 - 4.9 g/dL 4.4 Calcium 8.5 - 10.2 mg/dL 9.6 Bilirubin, Total 0.2 - 1.3 mg/dL 0.4 Alkaline Phosphatase 34 - 123 U/L 66 AST 13 - 35 U/L 19 ALT 7 - 38 U/L 22 Glucose 74 - 99 mg/dL 99 BUN 7 - 21 mg/dL 20 Creatinine 0.58 - 0.96 mg/dL 0.74 Sodium 136 - 144 mmol/L 140 Potassium 3.7 - 5.1 mmol/L 4.2 Chloride 97 - 105 mmol/L 102 CO2 22 - 30 mmol/L 28 Anion Gap 9 - 18 mmol/L 10 eGFR >=60 mL/min/1.73m 95 TSH 0.270 - 4.200 mIU/L 0.971 0.051 (L) Free T4 0.9 - 1.7 ng/dL 1.2 1.5 Free T3 2.3 - 4.1 pg/mL 3.1 3.6 Microsomal Antibody <5.6 IU/mL <3.0 01/09/2023 2:20 PM - Radiology, [place] In Impression IMPRESSION: Thyroid nodule(s) is/are present. Fine needle aspiration is recommended for one or more nodules as detailed in the synoptic report. TI-RADS Category: TR3 ACR Recommendation: TI-RADS 3 nodule. FNA is recommended for nodules measuring greater than 2.5cm. ACR recommendations are strictly based on the size and imaging appearance at the time of the exam and do not consider stability or previous biopsy results. No significant change from the previous ultrasound. Fish Processing Supervisor: [facility] HOSPITALIrma Transcribe Date/Time: Jan 09 2023 2:11P Dictated by : ELBERT LARA MD This examination was interpreted and the report reviewed and electronically signed by: ELBERT LARA MD on Jan 09 2023 2:18PM EST Results-Findings * * *Final Report* * * DATE OF EXAM: Jan 08 2023 7:45AM [facility]/PARATHYROID / PROCEDURE REASON: Nontoxic multinodular goiter * * * * Physician Interpretation * * * * EXAMINATION: THYROID ULTRASOUND CLINICAL HISTORY: Nontoxic multinodular goiter status post tissue sampling 08/26/2022 TECHNIQUE: Sonography and Doppler imaging of the thyroid was performed. Images were obtained and stored in a permanent archive. MQ: UST_1 COMPARISON: None. RESULT: Right Lobe: 6.2 x 2.1 x 2.5 cm; heterogeneous echogenicity, expected vascular flow. Left Lobe: 6.7 x 2.7 x 2.2 cm; heterogeneous echogenicity, expected vascular flow. Isthmus: 0.6 cm The most suspicious thyroid nodule(s) (up to four) as below: NODULE 1: Location: Right mid Size: 0.8 x 0.9 x 0.6 cm Characteristics: Composition: Solid or almost completely solid, 2 points Echogenicity: Hypoechoic, 2 points Shape: [id number], 0 points Margin: Smooth, 0 points Echogenic foci (add points for all that apply): None, 0 points Internal vascularity: absent Interval growth: Stable TI-RADS Category: TR4 ACR Recommendation: TI-RADS 4 nodule. No FNA or follow-up imaging is advised. NODULE 2: Location: Left mid-inferior Size: 3.0 x 2.4 x 2.0 cm Characteristics: Composition: Solid or almost completely solid, 2 points Echogenicity: Isoechoic, 1 point Shape: Ixrdj-tyaz-ymum, 0 points Margin: Smooth, 0 points Echogenic foci (add points for all that apply): None, 0 points Internal vascularity: present Interval growth: Stable TI-RADS Category: TR3 ACR Recommendation: TI-RADS 3 nodule. FNA is recommended for nodules measuring greater than 2.5cm. ASSESSMENT/PLAN: A pleasant 57 yo female patient with hx of breast ca, s/p lumpectomy on [employer], presenting for follow up of MNG. Patient is known to have thyroid nodules since at least 2013. Reports US guided FNA left nodule benign, 2015? TSH low normal over the years, but low in June 2022. Normal free T4/T3 and neg TPO/TSI. Thyroid US 06/26/22 showed a 3 by 2.5 by 2 cm left mid nodule, this is significantly larger than in 2018 when it measured 2.2 by 1.6 by 1.3, another right small 0.9 cm hypoechoic nodule not significantly different from 2018. Both thyroid lobes enlarged. I 123 uptake and scan completed to r/o hot nodule on the left . Discussed I 123 uptake/scan images/report with Dr Hogan. He confirmed that the uptake was low throughout the thyroid and possibly even lower in the site of the left lower nodule( see addendum to report). US FNA of the left nodule in August [address] [place] [address] Myers, general surgery. Results came back benign. FU thyroid US recently( 01/08/23) showed no sig changes in the nodules. Patient's TFTs have normalized since June 2022, Low normal TSH. She is clinically euthyroid. Patient has some obstructive sx( when lying down). Discussed with patient indications for total thyroidectomy for MNG, including obstructive sx. She feels the latter sx are too bad and will hold off on surgery. Thyroid US - plan for next January( 1 year), earlier if needed, based on sx. F/U 6 months with TFTs before apt. Call earlier for questions or concerns. Some elements copied from my note 12/15/22 which have been updated where appropriate, and all reflect current medical decision making from date of this visit. Patrice Palencia MD documented in this [facility]11-23-2023 History of Present illness Narrative* Jennifer Mo APRN.CNP - 01/29/2023 9:22 AM EST Pt did not show for consult lung cancer screening visit. documented in this [facility]11-02-2023 History of Present illness Narrative* Padmini Falcon RDMS - 01/08/2023 7:00 AM EDT Radiology Service Progress Note PATIENT NAME: Rebeca Wilson DATE OF SERVICE: January 08, 2023 TIME: 8:09 AM PATIENT IDENTITY VERIFICATION COMPLETED USING TWO (2) IDENTIFIERS: Name and Date of confirmedby patient verbally. FALL SCREENING: Has the patient had 2 falls in the last year or 1 fall with injury or currently using an Ambulatory Assistive Device (Walker, Cane, Wheelchair, Crutches, etc.)? No PATIENT GENDER DATA: Female. status: : No status: NO. PATIENT RELEVANT IMPLANT DATA REVIEWED: Not Applicable RADIOLOGY DEPARTMENT: Ultrasound PERIPHERAL IV DATA: Not applicable SIGNED BY: Padmini Falcon RDMS January 08, 2023 8:09 AM documented in this [facility]10-31-2023 History of Present illness Narrative* Akira Pierre MD - 01/06/2023 5:52 PM EDT This note was created using [employer]. Subjective Rebeca Wilson is a 57 year old female. HISTORY Rebeca Wilson is a 57 year old lady here for yearly exam and follow up appointment. 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 Does feel larger and bothersome. US being done. GERD controlled with PPI--needs to take daily. Knows triggers for break through reflux. Constipation noted more lately. Hard stools and straining and gas pain. Noted pain in area just above belly button and a lump when having issues with constipation. Joint pain due to OA and them meds. 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 cyclobenzaprine (FLEXERIL) 10 mg tablet Take 0.5-1 tablets by mouth three times daily as needed formuscle spasm. omeprazole (PRILOSEC) 20 mg capsule Take 20 mg by mouth once daily. MULTI-VITAMIN ORAL Take 1 tablet by mouth once daily. fluticasone (FLONASE) 50 mcg/actuation nasal spray Use 2 Sprays in each nostril once daily. Rinse mouth after use. No current facility-administered medications for this visit. ALLERGIES Allergen Reactions Zometa [Zoledronic * Other: See Comments Joint tenderness & soreness, difficulty breathing due to severe pain FAMILY HISTORY Problem Relation Age of Onset Hypertension Mother Allergies Mother Cancer Father 57 lung-smoker COPD Sister None Sister Breast Cancer Paternal Grandmother 79 Cancer Paternal Grandmother 89 unknown abdominal cancer Colon Cancer Paternal Grandfather 66 Cancer Paternal Aunt 63 lung - smoker Breast Cancer Paternal Aunt 68 Renal Cell Cancer Paternal Uncle 65 Cancer Paternal Uncle 72 adrenal Breast Cancer Paternal great-grandmother Breast Cancer Other 2 paternal great aunts, unknown ages Social History Tobacco Use Smoking status: Former Packs/day: 1.00 Years: 32.00 Additional pack years: 0.00 Total pack years: 32.00 Types: Cigarettes Start date: 08/04/1983 Quit date: 08/07/2015 Years since quittin.4 Smokeless tobacco: Never Vaping Use Vaping Use: Never used Substance Use Topics Alcohol use: Yes Comment: Not weekly Drug use: No Review of Systems Objective BP 112/68 Pulse 78 Temp 36.4 C (97.5 F) Resp 18 Ht 167 cm (5' 5.75) Wt 93 kg (205 lb) LMP 07/28/2015 (Exact Date) SpO2 98% BMI 33.34 kg/m Last 5 Encounter Wt Readings: Date: Wt: 01/06/2023 93 kg (205 lb) 11/21/2022 91.4 kg (201 lb 8 oz) 08/19/2022 90.3 kg (199 lb) 08/14/2022 88.9 kg (196 lb) 07/01/2022 88 kg (194 lb) No waist measurement recorded Estimated body mass index is 33.34 kg/m as calculated from the following: Height as of this encounter: 167 cm (5' 5.75). Weight as of this encounter: 93 kg (205 lb). Last 5 Encounter BP Readings: Date: BP: 01/06/2023 112/68 11/21/2022 117/79 08/19/2022 130/82 08/14/2022 122/74 07/01/2022 122/76 Physical Exam Vitals reviewed. Constitutional: Appearance: She is well-developed. HENT: Head: Normocephalic and atraumatic. Right Ear: External ear normal. Left Ear: External ear normal. Nose: Nose normal. Eyes: Conjunctiva/sclera: Conjunctivae normal. Neck: Thyroid: No thyromegaly. Vascular: No carotid bruit. Cardiovascular: Rate and Rhythm: Normal rate and regular rhythm. Pulses: Normal pulses. Heart sounds: Normal heart sounds. No murmur heard. No friction rub. No gallop. Pulmonary: Effort: Pulmonary effort is normal. Breath sounds: Normal breath sounds. Abdominal: General: Bowel sounds are normal. There is no distension. Palpations: Abdomen is soft. There is no mass. Tenderness: There is abdominal tenderness (just above belly button;?small lump or defect above belly button (?hernia but no prior surgery)). Musculoskeletal: General: No deformity. Normal range of motion. Right lower leg: No edema. Left lower leg: No edema. Lymphadenopathy: Cervical: No cervical adenopathy. Skin: General: Skin is warm and dry. Coloration: Skin is not jaundiced or pale. Findings: No rash. Neurological: General: No focal deficit present. Mental Status: She is alert and oriented to person, place, and time. Cranial Nerves: No cranial nerve deficit. Sensory: No sensory deficit. Motor: No abnormal muscle tone. Coordination: Coordination normal. Deep Tendon Reflexes: Reflexes normal. Psychiatric: Mood and Affect: Mood normal. Behavior: Behavior normal. Thought Content: Thought content normal. Judgment: Judgment normal. Component Latest Ref Rng & Units 06/20/2022 06/23/2022 08/19/2022 10/15/2022 12/12/2022 WBC 3.70 - 11.00 k/uL 6.74 RBC 3.90 - 5.20 m/uL 4.36 Hemoglobin 11.5 - 15.5 g/dL 12.9 Hematocrit 36.0 - 46.0 % 40.1 MCV 80.0 - 100.0 fL 92.0 MCH 26.0 - 34.0 pg 29.6 MCHC 30.5 - 36.0 g/dL 32.2 RDW-CV 11.5 - 15.0 % 12.8 Platelet Count 150 - 400 k/uL 510 (H) MPV 9.0 - 12.7 fL 9.5 Neut% % 51.0 Abs Neut (ANC) 1.45 - 7.50 k/uL 3.43 Lymph% % 38.4 Abs Lymph 1.00 - 4.00 k/uL 2.59 [place]% % 6.5 Abs [place] <0.87 k/uL 0.44 Eosin% % 2.2 Abs Eosin <0.46 k/uL 0.15 Baso% % 0.7 Abs Baso <0.11 k/uL 0.05 Immature Gran % % 1.2 IMMATURE GRANS (ABS) <0.10 k/uL 0.08 NRBC /100 WBC 0.0 Absolute nRBC <0.01 k/uL <0.01 DTYPE Auto Protein, Total 6.3 - 8.0 g/dL 7.5 Albumin 3.9 - 4.9 g/dL 4.4 Calcium 8.5 - 10.2 mg/dL 9.6 9.4 Bilirubin, Total 0.2 - 1.3 mg/dL 0.4 Alkaline Phosphatase 34 - 123 U/L 66 AST 13 - 35 U/L 19 ALT 7 - 38 U/L 22 Glucose 74 - 99 mg/dL 99 108 (H) BUN 7 - 21 mg/dL 20 20 Creatinine 0.58 - 0.96 mg/dL 0.74 0.79 Sodium 136 - 144 mmol/L 140 140 Potassium 3.7 - 5.1 mmol/L 4.2 4.0 Chloride 97 - 105 mmol/L 102 104 CO2 22 - 30 mmol/L 28 25 Anion Gap 9 - 18 mmol/L 10 11 eGFR >=60 mL/min/1.73m 95 87 TSI Qualitative Negative Negative TSI <0.55 IU/L <0.10 TSH 0.270 - 4.200 mIU/L 0.051 (L) 0.057 (L) 0.382 0.706 Free T4 0.9 - 1.7 ng/dL 1.5 1.2 1.0 1.1 Free T3 2.3 - 4.1 pg/mL 3.6 3.4 3.4 3.2 Microsomal Antibody <5.6 IU/mL <3.0 Assessment and Plan Encounter Diagnosis ICD-10-CM 1. Routine medical exam Z00.00 2. Constipation, unspecified constipation type K59.00 Patient here for yearly exam and follow up. Above issues addressed with patient. Patient involved in shared decision making for management of medical issues. History and medications reviewed. Epic updated as needed Refills taken care of and meds adjusted as indicated after reviewed history, exam and labs. Health Maintenance reviewed. Updated record and/or ordered tests as recorded. Encouraged on efforts at healthy diet and regular exercise and adequate sleep. Discussed multiple issues as noted in HPI. Continue present management as discussed. Further evaluation and treatment as indicated. Akira Pierre MD [facility] this [facility] History of Present illness Narrative* Patrice Palencia MD - 12/15/2022 3:00 PM EDT VIRTUAL VISIT PROGRESS NOTE This is a virtual visit using [employer] video visit. It required patient-provider interaction for themedical decision making as documented below. I have communicated my name and active licensure. The patient's identity and physical location wereverified at the time of this visit. Either the patient or their legal access services representative has been informed of the risks and benefits of -- and alternatives to -- treatment through a remote evaluation andconsents to proceed with the evaluation remotely. Rebeca Wilson is a 56 year old female seen for follow up low TSH and thyroid nodule. Last visit 08/18/22. 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 Obese thyroid nodule PAST SURGICAL HISTORY Procedure Laterality Date BIOPSY THYROID 08/2013 BREAST LUMPECTOMY HX 10/2021 COLONOSCOPY FLX DX W/COLLJ SPEC WHEN PFRMD 11/28/2016 COLONOSCOPY FLX DX W/COLLJ SPEC WHEN PFRMD 01/31/2020 TUBAL LIGATION, 1990 FAMILY HISTORY Problem Relation Age of Onset Hypertension Mother Allergies Mother Cancer Father 57 lung-smoker COPD Sister None Sister Breast Cancer Paternal Grandmother 79 Cancer Paternal Grandmother 89 unknown abdominal cancer Colon Cancer Paternal Grandfather 66 Cancer Paternal Aunt 63 lung - smoker Breast Cancer Paternal Aunt 68 Renal Cell Cancer Paternal Uncle 65 Cancer Paternal Uncle 72 adrenal Breast Cancer Paternal great-grandmother Breast Cancer Other 2 paternal great aunts, unknown ages Social History Tobacco Use Smoking status: Former Packs/day: 1.00 Years: 32.00 Additional pack years: 0.00 Total pack years: 32.00 Types: Cigarettes Start date: 08/04/1983 Quit date: 08/07/2015 Years since quittin.3 Smokeless tobacco: Never Vaping Use Vaping Use: Never used Substance Use Topics Alcohol use: Yes Comment: Not weekly Drug use: No Current Outpatient Medications Medication Sig meloxicam (MOBIC) 15 mg tablet take 1 tablet by mouth every day exemestane (AROMASIN) 25 mg tablet take 1 tablet once daily venlafaxine ER (EFFEXOR XR) 150 mg 24 hr capsule TAKE 1 CAPSULE BY MOUTH ONCE DAILY calcium carbonate/vitamin D3 (CALTRATE 600 + D ORAL) Take 1 tablet by mouth once daily. cyclobenzaprine (FLEXERIL) 10 mg tablet Take 0.5-1 tablets by mouth three times daily as needed formuscle spasm. omeprazole (PRILOSEC) 20 mg capsule Take 20 mg by mouth once daily. MULTI-VITAMIN ORAL Take 1 tablet by mouth once daily. fluticasone (FLONASE) 50 mcg/actuation nasal spray Use 2 Sprays in each nostril once daily. Rinse mouth after use. No current facility-administered medications for this visit. ALLERGIES Allergen Reactions Zometa [Zoledronic * Other: See Comments Joint tenderness & soreness, difficulty breathing due to severe pain Interval hx: I discussed I 123 uptake/scan images/report with Dr Hogan. He confirmed that the uptake was low throughout the thyroid and possibly even lower in the site of the left lower nodule( see addendum to report). I called patient 09/05/22 to schedule FNA, and she shared she already had US guided FNA the previousweek in [place] with Dr Myers, general surgery. She saw him to atypical lesion right cheek, and he reviewed her chart and did also US guided FNA. Results came back benign. Overall no significant sx of hypo or hyperthyroidism. Thyroid labs normal recently. No dysphagia, no hoarseness, no SOB. Neck just feels full sometimes, also occasionally feels pressure in neck when lying down, not too bad. Answers submitted by the patient for this visit: Core Review of Systems (Submitted on 12/14/2022) Fever : No Night Sweats: No Recent Unintentional Weight Change: No Nasal Congestion: No Hearing Loss: No Vision Disturbance: No A Cough: No Difficulty Breathing?: No Chest Pain: No Irregular Heart Beat: No Leg Swelling: No Nausea: No Diarrhea: No Black Tarry Stools: No Difficulty Urinating?: No Awaken at Night More Than Once to Urinate?: No Joint Pain or Stiffness: Yes Muscle Aches: No Leg or Foot Discomfort at Night?: Yes A Rash: Yes Dizziness: No Headaches: No Memory Loss: No Seizures: No PHYSICAL EXAMINATION: VIDEO EXAM: (if completed, performed via video enabled technology) GENERAL: alert and appropriate, in no distress, well-hydrated, well nourished, and happy, smiling, interactive. Labs: Component Latest Ref Rng & Units 08/19/2022 10/15/2022 12/12/2022 TSI Qualitative Negative Negative TSI <0.55 IU/L <0.10 TSH 0.270 - 4.200 mIU/L 0.057 (L) 0.382 0.706 Free T4 0.9 - 1.7 ng/dL 1.2 1.0 1.1 Free T3 2.3 - 4.1 pg/mL 3.4 3.4 3.2 Component Latest Ref Rng & Units 06/17/2021 06/20/2022 06/23/2022 WBC 3.70 - 11.00 k/uL 6.74 RBC 3.90 - 5.20 m/uL 4.36 Hemoglobin 11.5 - 15.5 g/dL 12.9 Hematocrit 36.0 - 46.0 % 40.1 MCV 80.0 - 100.0 fL 92.0 MCH 26.0 - 34.0 pg 29.6 MCHC 30.5 - 36.0 g/dL 32.2 RDW-CV 11.5 - 15.0 % 12.8 Platelet Count 150 - 400 k/uL 510 (H) MPV 9.0 - 12.7 fL 9.5 Neut% % 51.0 Abs Neut (ANC) 1.45 - 7.50 k/uL 3.43 Lymph% % 38.4 Abs Lymph 1.00 - 4.00 k/uL 2.59 [place]% % 6.5 Abs [place] <0.87 k/uL 0.44 Eosin% % 2.2 Abs Eosin <0.46 k/uL 0.15 Baso% % 0.7 Abs Baso <0.11 k/uL 0.05 Immature Gran % % 1.2 IMMATURE GRANS (ABS) <0.10 k/uL 0.08 NRBC /100 WBC 0.0 Absolute nRBC <0.01 k/uL <0.01 DTYPE Auto Protein, Total 6.3 - 8.0 g/dL 7.5 Albumin 3.9 - 4.9 g/dL 4.4 Calcium 8.5 - 10.2 mg/dL 9.6 Bilirubin, Total 0.2 - 1.3 mg/dL 0.4 Alkaline Phosphatase 34 - 123 U/L 66 AST 13 - 35 U/L 19 ALT 7 - 38 U/L 22 Glucose 74 - 99 mg/dL 99 BUN 7 - 21 mg/dL 20 Creatinine 0.58 - 0.96 mg/dL 0.74 Sodium 136 - 144 mmol/L 140 Potassium 3.7 - 5.1 mmol/L 4.2 Chloride 97 - 105 mmol/L 102 CO2 22 - 30 mmol/L 28 Anion Gap 9 - 18 mmol/L 10 eGFR >=60 mL/min/1.73m 95 TSH 0.270 - 4.200 mIU/L 0.971 0.051 (L) Free T4 0.9 - 1.7 ng/dL 1.2 1.5 Free T3 2.3 - 4.1 pg/mL 3.1 3.6 Microsomal Antibody <5.6 IU/mL <3.0 06/28/2022 9:58 PM - Radiology, [place] In Impression IMPRESSION: Enlarged bilateral thyroid. Thyroid nodule(s) is/are present. Fine needle aspiration is recommended for one or more nodules as detailed in the synoptic report. TI-RADS Category: TR4 ACR Recommendation: TI-RADS 4 nodule. FNA is recommended. ACR recommendations are strictly based on the size and imaging appearance at the time of the exam and do not consider stability or previous biopsy results. Fish Processing Supervisor: C[facility] HOSPITALIrma Transcribe Date/Time: Jun 28 2022 9:52P Dictated by : TERRY SAM MD This examination was interpreted and the report reviewed and electronically signed by: TERRY SAM MD on Jun 28 2022 9:56PM EST Results-Findings * * *Final Report* * * DATE OF EXAM: Jun 26 2022 8:58AM U 1048 - US THYROID/PARATHYROID / PROCEDURE REASON: Nontoxic multinodular goiter * * * * Physician Interpretation * * * * EXAMINATION: THYROID ULTRASOUND CLINICAL HISTORY: Nontoxic multinodular goiter TECHNIQUE: Sonography and Doppler imaging of the thyroid was performed. Images were obtained and stored in a permanent archive. MQ: UST_1 COMPARISON: Ultrasound thyroid on 12/11/2017 RESULT: Right Lobe: 6.4 x 1.8 x 2.7 cm; heterogeneous echogenicity, expected vascular flow. Left Lobe: 6.8 x 2.9 x 2.4 cm; heterogeneous echogenicity, expected vascular flow. Isthmus: 0.8 cm The most suspicious thyroid nodule(s) (up to four) as below: NODULE 1: Location: Right mid Size: 0.8 x 0.9 x 0.6 cm, previously 0.8 x 0.8 x 0.5 cm. Characteristics: Composition: Solid or almost completely solid, 2 points Echogenicity: Hypoechoic, 2 points Shape: [id number]-hmgt, 0 points Margin: Smooth, 0 points Echogenic foci (add points for all that apply): None, 0 points Internal vascularity: absent Interval growth: No significant growth given differences in technique TI-RADS Category: TR4 ACR Recommendation: TI-RADS 4 nodule. No FNA or follow-up imaging is advised. NODULE 2: Location: Left mid to inferior Size: 3.0 x 2.5 x 2.0 cm, previously 2.2 x 1.6 x 1.3 cm. Characteristics: Composition: Solid or almost completely solid, 2 points Echogenicity: Isoechoic, 1 point Shape: [id number], 0 points Margin: Smooth, 0 points Echogenic foci (add points for all that apply): Punctate echogenic foci, 3 points Internal vascularity: present Interval growth: Significant interval growth (20% increase in at least two nodule dimensions and a minimal increase of 2 mm, or a 50% or greater increase in volume). TI-RADS Category: TR4 ACR Recommendation: TI-RADS 4 nodule. FNA is recommended. 08/06/2022 10:40 PM - Radiology, [place] In Impression IMPRESSION: Decrease 24-hour uptake of 3.9% images secondary to thyroiditis, thyrotoxicosis factitia, abdomen contamination, or less likely, struma ovarii. The left lower pole thyroid nodule may be secondary to functioning thyroid tissue/adenoma, although FNA is recommended. Fish Processing Supervisor: NAHOMI Transcribe Date/Time: Aug 06 2022 9:15A Dictated by : ABIGAIL BHATTI MD This examination was interpreted and the report reviewed and electronically signed by: PAM HOGAN MD on Aug 06 2022 10:38PM EST Results-Findings * * *Final Report* * * DATE OF EXAM: Aug 06 2022 8:58AM FVN 0040 - NM THY UPTAKE AND SCAN / PROCEDURE REASON: multiple diagnoses * * * * Physician Interpretation * * * * I-123 NECK UPTAKE AND THYROID SCAN: HISTORY: Enlarging left inferior thyroid nodule with internal color Doppler flow. Suppressed TSH, normal T3 and T4. TECHNIQUE: 241 microcuries 123-I sodium iodide orally. COMPARISON: None CORRELATION: Thyroid ultrasound 06/26/2022 RESULT: 4-hour neck uptake is 2.4% (normal range 5-15%). 24-hour neck uptake is 3.9% (normal range 10-25%). Planar images demonstrate diffusely decreased uptake in the bilateral lobes without focal increasing diffuse uptake corresponding to the left lower pole nodule, perhaps slightly decreased uptake ASSESSMENT/PLAN: A pleasant 57 yo female patient with hx of breast ca, s/p lumpectomy on Ex, presenting for follow up of MNG. Patient is known to have thyroid nodules since at least 2013. Reports US guided FNA left nodule benign, 2014? TSH low normal over the years, but low in June 2022. Normal free T4/T3 and neg TPO/TSI. Thyroid US 06/26/22 showed a 3 by 2.5 by 2 cm left mid nodule, this is significantly larger than in 2018 when it measured 2.2 by 1.6 by 1.3, another right small 0.9 cm hypoechoic nodule not significantly different from 2018. Both thyroid labs large. I 123 uptake and scan completed to r/o hot nodule on the left . Discussed I 123 uptake/scan images/report with Dr Hogan. He confirmed that the uptake was low throughout the thyroid and possibly even lower in the site of the left lower nodule( see addendum to report). Patient had US FNA of the left nodule in August [address] [place] [address] Myers, general surgery. Results came back benign. Patient's TFTs have normalized since June. She is clinically euthyroid. Patient has mild sx related to goiter. Discussed with patient indications for total thyroidectomy for MNG. Currently no strong indication.We will continue to monitor US and sx. Will also continue to monitor TFts. Get TFTs and thyroid US in February,. Follow up- will schedule after reviewing labs and US through my chart in February. Some elements copied from my note 08/18/22 which have been updated where appropriate, and all reflect current medical decision making from date of this visit. I spent a total of 30 minutes on the date of the service which included preparing to see the patient, [id number] patient care, completing clinical documentation, obtaining and/or reviewing separately obtained history, performing a medically appropriate examination, counseling and educating the pat ient, ordering medications, tests, or procedures and care coordination. Patrice Palencia MD documented in this encounterBrecksville [facility] Miscellaneous Notes* Telephone Encounter - Pilar Mack LPN - 11/25/2022 7:57 AM EDT Patient has been identified by name and date of : Yes Requested Prescriptions Pending Prescriptions Disp Refills exemestane (AROMASIN) 25 mg tablet [Pharmacy Med Name: EXEMESTANE TAB 25MG] 90 tablet 1 Sig: take 1 tablet once daily RX INSTRUCTIONS: Patient aware RX will be sent to pharmacy. No need to notify patient. Pilar Mack LPN documented in this encounterBrecksville [facility]09-15-2023 History of Present illness Narrative* Nahun Zavaleta DO - 11/21/2022 4:29 PM EDT Oncologic problem(s): 1) pT1b pN0(sn) M0 ER/AR positive, HER2 negative stage IA infiltrating ductal carcinoma of the right breast. HPI: The patient is a 57-year-old female with a past medical history significant for GERD, multinodular goiter, seborrheic keratosis, arthralgia of the hands, prior COVID-19 infection, obesity and recent diagnosis of invasive ductal carcinoma of the right breast. She developed an abrasion of the right upper breast along where a new bra strap clasp had rubbed it. She was evaluated by Dr. Johnson who noted an approximate 6 to 7 x 5 cm area of dense induration/erythema of the right breast upper chest wall. It felt fibrous without fluctuance. The skin was excoriated for about 1 to 1-1/2 cm with white fibrous tissue noted. Patient underwent diagnostic mammogram on 07/17/2021. There was a 6 x 5 x 5 mm oval mass with a circumscribed margin in the right breast at 1:00 posterior depth 3 cm from the nipple. It appeared hypoechoic with internal echoes on ultrasound and it correlated with the mammogram findings. There was slight thickening of the single axillary lymph node of 4 mm. Patient underwent an ultrasound-guided core needle biopsy on 08/20/2021. Pathology: Invasive mammary carcinoma, provisional histologic grade 2. ER +91 to 100%, strong staining intensity. AR positive, 81 to 90%, strong staining intensity HER2 negative, 1+ on IHC. Patient underwent a right breast GREGORY Public Relations Supervisor localized lumpectomy, right sentinel lymph node mappingand biopsy on 10/07/2021. Pathology: A. Right axilla, sentinel lymph nodes, excision: -Two lymph nodes, negative for metastatic carcinoma (0/2), (please see comment). B. Right breast, lumpectomy: - Invasive mammary carcinoma with mixed ductal and lobular features, Ephraim grade 2, measuring 7 mm in greatest dimension, (please see comment and synoptic report). 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 Right breast, anterior margin, excision: - Unremarkable breast parenchyma D. Right breast, posterior margin, excision: - Unremarkable breast parenchyma E. Right breast, superior margin, excision: - Unremarkable breast parenchyma F. Right breast, inferior margin, excision: - Unremarkable breast parenchyma G. Right breast, medial margin, excision: - Unremarkable breast parenchyma H. Right breast, lateral margin, excision: - Intraductal papilloma with usual ductal hyperplasia Enrolled in IRB# [id number] Title: NRG BR007: A Phase III Clinical Trial Evaluating De-Escalation of Breast Radiation for Conservative Treatment of Stage I, Hormone Sensitive, Her2-Negative, Oncotype Recurrence Score <= 18 Breast Cancer. Current therapy: 1) Exemestane Presents for ongoing oncologic management. Interim history: Tolerating exemestane well. Venlafaxine helping better with mood. Better sense of well being. Hot flashes same in frequency, but shorter in duration. Still don't wake her. Previous--joint pain in fingers, elbows, knees and ankles not bothering as much. 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 PMH, medications and allergies personally reviewed by me today. Any changes documented in appropriate section. ROS: Constitutional: Denies episodes of fever and night sweats. Not significantly fatigued. Normal appetite. Neuro: Denies [place], vertigo, dizziness and imbalance. Denies symptoms of neuropathy. HEENT: No recent change in voice, vision or hearing. Resp: Denies cough, wheeze and hemoptysis. Denies shortness of breath at rest. Denies KISER. CVS: Denies exertional chest pain, PND, orthopnea and LE edema. GI: Denies dysgeusia. Denies symptoms of stomatitis. Denies dysphagia and odynophagia. Denies reflux, n/v, change in bowel habits and abdominal pain. : Denies dysuria or gross hematuria. No symptoms of bladder outlet obstruction. Endo: Denies polyuria and polydipsia. Denies heat and cold intolerance. Musculoskeletal: See above. Derm: See above. Heme: Denies unusual bleeding and unexplained bruising. Psych: See above. PHYSICAL EXAM: Vitals: Last menstrual period 07/28/2015. Well-appearing and in no acute distress. EYES: Sclerae are anicteric bilaterally. LYMPHATIC: There is no palpable cervical, supraclavicular or axillary adenopathy. RESPIRATORY: Inspiratory breath sounds are of normal intensity in all santacruz. No rales, wheezes or rhonchi. CARDIOVASCULAR: Rhythm is regular. BREAST: Nurse acted as public improvement inspector. Right breast and axillary incision well- healed. No concerning mass or nodule bilaterally. ABDOMEN: The abdomen is nondistended. No organomegaly. No tenderness. Extremities: No swelling or edema. SKIN: Small papular lesion right upper cheek. ASSESSMENT/PLAN: (C50.211, Z17.0) Malignant neoplasm of 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, estrogen receptor positive (HCC) (primary encounter diagnosis) (Z00.6) Examination of participant in clinical trial Assessment: -The patient is a 56-year-old postmenopausal female (no menses in 3 years) who was diagnosed with apT1b pN0 M0 ER/AR positive, HER2 negative stage IA mixed invasive lobular and ductal carcinoma of the right breast. -Oncotype DX recurrence score 10 indicating 9-year risk of distant recurrence with the use of tamoxifen or AI at 3% with 95/% confidence interval 3 to 4%. -Enrolled in IRB# [id number] Title: NRG BR007: A Phase III Clinical Trial Evaluating De-Escalation of Breast Radiation for Conservative Treatment of Stage I, Hormone Sensitive, Her2-Negative, Oncotype Recurrence Score <= 18 Breast Cancer. -Was randomized to not receive radiation. -Custom cancer panel through [facility] negative for all tested mutations. -ECOG PS is 0. -On therapy with exemestane.Tolerating well with no severe or unusual toxicity. -No further Zometa. Had severe bone pain with first infusion. Plan: -Continue Tylenol 1000 mg q 12 hours prn in addition to Mobic. -Due for screening mammogram 04/2023. -Continue exemestane. -Continue Citracal with D (or store brand generic) once daily. -Continue venlafaxine 150 mg SR daily. (F34.1) Persistent depressive disorder Assessment: -Patient has longstanding history of depression. -Potentially exacerbated by hormonal therapy. -Doing much better on venlafaxine. Plan: -Continue venlafaxine. Portions of this documentation were copied and pasted from previous office visit notes in order to provide a cohesive continuity of the history. The note has been reviewed and edited and updated as necessary. I spent a total of 20 minutes on the date of the service which included preparing to see the patient, [id number] patient care, completing clinical documentation, obtaining and/or reviewing separately obtained history, performing a medically appropriate examination, counseling and educating the pat ient/family/caregiver, ordering medications, tests, or procedures, communicating with other HCPs (not separately reported), and communicating results to the patient/family/caregiver. Nahun Zavaleta DO documented in this encounterBrecksville [facility]09-11-2023 History of Present illness Narrative* Yenny Posadas RN - 11/17/2022 2:49 PM EDT IRB# [id number] Title: NRG [id number]: A Phase III Clinical Trial Evaluating De- Escalation of Breast Radiation for Conservative Treatment of Stage I, Hormone Sensitive, Her2-Negative, Oncotype Recurrence Score <= 18 Breast Cancer. Consent Date: 11/18/2021 Randomization Date: 11/18/2021 Treatment ARM: HT - TA2 12 Month Post - Randomization Optional Labs Collected: 11/17/2022 Drawn at 8:10AM Shipped to sponsor - Sent Fedex - [id number] on dry ice per protocol. Shipped 14 Cryovials: 4 EDTA - PLS 1 EDTA - BC 4 Serum 4 STK- PLS 1 STK - BC Patient to C Thursday for 12 Month OV. Yenny Posadas RN [phone] documented in this encounterBrecksville [facility]09-05-2023 Miscellaneous Notes* Telephone Encounter - Stefany Beckford - 11/11/2022 2:48 PM EDT Lab appt scheduled. Once orders are entered, patient can come in anytime that day. Does not need sravani at scheduled time. documented in this encounterBrecksville [facility]09-01-2023 Miscellaneous Notes* Telephone Encounter - Yenny Posadas RN - 11/07/2022 9:36 AM EDT Left the patient a voicemail in regards to their one year clinical trial draw. Yenny Posadas RN documented in this encounterBrecksville [facility]06-30-2023 Miscellaneous Notes* Telephone Encounter - Patrice Palencia MD - 09/05/2022 9:30 AM EDT Images from the original note were not included. Late entry. I discussed I 123 uptake/scan images/report with Dr Hogan. He confirmed that the uptake was low throughout the thyroid and possibly even lower in the site of the left lower nodule( see addendum to report). I called patient to schedule FNA, and she shared [place]. She saw him to atypical lesion right cheek, and he reviewed her chart and did also US guided FNA. Results came back benign, as below. We also discussed persistent low TSH with low I 123 uptake. Thyroiditis is still possible. Will repeat early October. If TSH is still suppressed, may need to consider other possibilities since hyperthyroidism phase of thyroiditis usually resolve within 3-4 months. She is agreeable with plan. Will also plan on follow up thyroid US in 6-12 months. * Telephone Encounter - Patrice Palencia MD - 09/03/2022 12:54 PM EDT I talked to Dr Hogan, radiology and talked to Rebeca. Full note to follow. documented in this encounterBrecksville [facility]06-27-2023 Nurse Note* Brittany Correa LPN - 09/02/2022 4:[address] Myers removed sutures and this nurse applied steri strips and bandage. Dr Myers review thyroid pathology results with patient. Brittany Correa LPN documented in this encounterBrecksville [facility]06-26-2023 Miscellaneous Notes* Telephone Encounter - Pilar Davidson LPN - 09/01/2022 7:40 AM EDT Patient has been identified by name and date of : Yes Requested Prescriptions Pending Prescriptions Disp Refills venlafaxine ER (EFFEXOR XR) 150 mg 24 hr capsule [Pharmacy Med Name: VENLAFAXINE HCL ER 150 MG CAP]90 capsule Sig: TAKE 1 CAPSULE BY MOUTH ONCE DAILY RX INSTRUCTIONS: Patient aware RX will be sent to pharmacy. No need to notify patient. Pilar Davidson LPN documented in this encounterBrecksville [facility]06-20-2023 History of Present illness Narrative* Quinton Myers MD - 08/26/2022 10:08 AM EDT HISTORY AND PHYSICAL Rebeca Wilson 1965 REFERRING PHYSICIAN: Nahun Zavaleta DO CHIEF COMPLAINT: Consult (Right facial lesion) HPI: The patient is a 57 year old female with a complaint of right cheek lesion. It is gradually been getting larger since she started her treatment for cancer. She is not had any trauma to the area.. NODULE 1: Location: Right mid Size: 0.8 x 0.9 x 0.6 cm, previously 0.8 x 0.8 x 0.5 cm. Characteristics: Composition: Solid or almost completely solid, 2 points Echogenicity: Hypoechoic, 2 points Shape: Eipct-wvjg-ceer, 0 points Margin: Smooth, 0 points Echogenic foci (add points for all that apply): None, 0 points Internal vascularity: absent Interval growth: No significant growth given differences in technique TI-RADS Category: TR4 ACR Recommendation: TI-RADS 4 nodule. No FNA or follow-up imaging is advised. NODULE 2: Location: Left mid to inferior Size: 3.0 x 2.5 x 2.0 cm, previously 2.2 x 1.6 x 1.3 cm. Characteristics: Composition: Solid or almost completely solid, 2 points Echogenicity: Isoechoic, 1 point Shape: Hfljw-zglw-kttw, 0 points Margin: Smooth, 0 points Echogenic foci (add points for all that apply): Punctate echogenic foci, 3 points Internal vascularity: present Interval growth: Significant interval growth (20% increase in at least two nodule dimensions and a minimal increase of 2 mm, or a 50% or greater increase in volume). TI-RADS Category: TR4 ACR Recommendation: TI-RADS 4 nodule. FNA is recommended. The patient is being seen by me today at the request of Dr. Zavaleta for my opinion and advice regarding Neoplasm of uncertain behavior of skin of cheek (primary encounter diagnosis) Nontoxic multinodular goiter. 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 venlafaxine ER (EFFEXOR XR) 150 mg 24 hr capsule TAKE 1 CAPSULE BY MOUTH ONCE DAILY exemestane (AROMASIN) 25 mg tablet TAKE 1 TABLET ONCE DAILY cyclobenzaprine (FLEXERIL) 10 mg tablet Take 0.5-1 tablets by mouth three times daily as needed formuscle spasm. omeprazole (PRILOSEC) 20 mg capsule Take 20 mg by mouth once daily. MULTI-VITAMIN ORAL Take by mouth once daily. fluticasone (FLONASE) 50 mcg/actuation nasal spray Use 2 Sprays in each nostril once daily. Rinse mouth after use. No current facility-administered medications for this visit. ALLERGIES: Zometa [Zoledronic Acid] PERSONAL HISTORY: Social History Tobacco Use Smoking status: Former Packs/day: 1.00 Years: 32.00 Pack years: 32.00 Types: Cigarettes Start date: 08/04/1983 Quit date: 08/07/2015 Years since quittin.0 Smokeless tobacco: Never Vaping Use Vaping Use: Never used Substance Use Topics Alcohol use: Yes Comment: Not weekly Drug use: No FAMILY HISTORY: FAMILY HISTORY Problem Relation Age of Onset Hypertension Mother Allergies Mother Cancer Father 57 lung-smoker COPD Sister None Sister Breast Cancer Paternal Grandmother 79 Cancer Paternal Grandmother 89 unknown abdominal cancer Colon Cancer Paternal Grandfather 66 Cancer Paternal Aunt 63 lung - smoker Breast Cancer Paternal Aunt 68 Renal Cell Cancer Paternal Uncle 65 Cancer Paternal Uncle 72 adrenal Breast Cancer Paternal great-grandmother Breast Cancer Other 2 paternal great aunts, unknown ages REVIEW OF SYMPTOMS: The review of systems data was entered by the nurse and reviewed by me There are no exam notes on file for this visit. PHYSICAL EXAMINATION: General: The patient is 57 year old female, well nourished, well hydrated in no acute distress. Thepatient is oriented to time, place, and person. VITALS: Blood pressure 130/82, pulse 87, temperature 36.6 C (97.8 F), height 167.6 cm (5' 6), weight 90.3 kg (199 lb), last menstrual period 07/28/2015, SpO2 97 %. HEENT: Normal cephalic, ataumatic, pupils are equally round, sclera are anicteric, mucous membranesare moist, oropharynx is clear. Neck has no masses, asymmetry or lymphadenopathy. Thyroid is unremarkable. Small 4 mm verrucous lesion to right cheek. No signs of inflammation. Other: LABORATORY VALUES: As Noted RADIOLOGIC STUDIES: As Noted Assessment IMPRESSION: Neoplasm of uncertain behavior of skin of cheek (primary encounter diagnosis) Nontoxic multinodular goiter PLAN: I am going to do a punch biopsy of this and then bring it back together with a 4-0 nylon. At the same time I am going to do a fine-needle aspiration of her left thyroid gland. Diagnoses: (D48.5) Neoplasm of uncertain behavior of skin of cheek (primary encounter diagnosis) (E04.2) Nontoxic multinodular goiter My findings have been communicated to Dr. Zavaleta via shared medical record. This note will be forwarded to Dr. Akira Pierre MD. Return to Clinic: The patient is instructed to follow-up with me 1 week post operatively. Quinton Myers III, MD documented in this encounterB[facility] History of Present illness Narrative* Patrice Palencia MD - 08/18/2022 11:45 AM EDT VIRTUAL VISIT PROGRESS NOTE This is a virtual visit using [employer] video visit. It required patient-provider interaction for themedical decision making as documented below. I have communicated my name and active licensure. The patient's identity and physical location wereverified at the time of this visit. Either the patient or their legal access services representative has been informed of the risks and benefits of -- and alternatives to -- treatment through a remote evaluation andconsents to proceed with the evaluation remotely. Rebeca Wilson is a 56 year old female seen for follow up low TSH and thyroid nodule. Last visit 07/11/22. 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 Obese thyroid nodule PAST SURGICAL HISTORY Procedure Laterality Date BIOPSY THYROID 08/2013 BREAST LUMPECTOMY HX 10/2021 COLONOSCOPY FLX DX W/COLLJ SPEC WHEN PFRMD 11/28/2016 COLONOSCOPY FLX DX W/COLLJ SPEC WHEN PFRMD 01/31/2020 TUBAL LIGATION, 1990 FAMILY HISTORY Problem Relation Age of Onset Hypertension Mother Allergies Mother Cancer Father 57 lung-smoker COPD Sister None Sister Breast Cancer Paternal Grandmother 79 Cancer Paternal Grandmother 89 unknown abdominal cancer Colon Cancer Paternal Grandfather 66 Cancer Paternal Aunt 63 lung - smoker Breast Cancer Paternal Aunt 68 Renal Cell Cancer Paternal Uncle 65 Cancer Paternal Uncle 72 adrenal Breast Cancer Paternal great-grandmother Breast Cancer Other 2 paternal great aunts, unknown ages Social History Tobacco Use Smoking status: Former Packs/day: 1.00 Years: 32.00 Pack years: 32.00 Types: Cigarettes Start date: 08/04/1983 Quit date: 08/07/2015 Years since quittin.0 Smokeless tobacco: Never Vaping Use Vaping Use: Never used Substance Use Topics Alcohol use: Yes Comment: Not weekly Drug use: No Current Outpatient Medications Medication Sig calcium carbonate/vitamin D3 (CALTRATE 600 + D ORAL) meloxicam (MOBIC) 15 mg tablet Take 1 tablet by mouth once daily. venlafaxine ER (EFFEXOR XR) 150 mg 24 hr capsule TAKE 1 CAPSULE BY MOUTH ONCE DAILY exemestane (AROMASIN) 25 mg tablet TAKE 1 TABLET ONCE DAILY cyclobenzaprine (FLEXERIL) 10 mg tablet Take 0.5-1 tablets by mouth three times daily as needed formuscle spasm. omeprazole (PRILOSEC) 20 mg capsule Take 20 mg by mouth once daily. MULTI-VITAMIN ORAL Take by mouth once daily. fluticasone (FLONASE) 50 mcg/actuation nasal spray Use 2 Sprays in each nostril once daily. Rinse mouth after use. No current facility-administered medications for this visit. ALLERGIES Allergen Reactions Zometa [Zoledronic * Other: See Comments Joint tenderness & soreness, difficulty breathing due to severe pain HPI: She had I 123 uptake and scan. I 123 uptake and scan showed per report decreased uptake both lobes. The report also states The left lower pole thyroid nodule may be secondary to functioning thyroid tissue/adenoma, although FNA is recommended. Overall no new sx, mild shakiness of hand occasionally. No palpitations. Heat intolerance for years. No sig changes in weight. Hx of constipation. But a little change in BM patterns. Used to have one hard BM every 2-3 days, now 2-3 times a day but still hard. No dysphagia, no hoarseness, no SOB. Neck just feels thick PHYSICAL EXAMINATION: VIDEO EXAM: (if completed, performed via video enabled technology) GENERAL: alert and appropriate, in no distress, well-hydrated, well nourished, and happy, smiling, interactive. Labs: Component Latest Ref Rng & Units 06/17/2021 06/20/2022 06/23/2022 WBC 3.70 - 11.00 k/uL 6.74 RBC 3.90 - 5.20 m/uL 4.36 Hemoglobin 11.5 - 15.5 g/dL 12.9 Hematocrit 36.0 - 46.0 % 40.1 MCV 80.0 - 100.0 fL 92.0 MCH 26.0 - 34.0 pg 29.6 MCHC 30.5 - 36.0 g/dL 32.2 RDW-CV 11.5 - 15.0 % 12.8 Platelet Count 150 - 400 k/uL 510 (H) MPV 9.0 - 12.7 fL 9.5 Neut% % 51.0 Abs Neut (ANC) 1.45 - 7.50 k/uL 3.43 Lymph% % 38.4 Abs Lymph 1.00 - 4.00 k/uL 2.59 [place]% % 6.5 Abs [place] <0.87 k/uL 0.44 Eosin% % 2.2 Abs Eosin <0.46 k/uL 0.15 Baso% % 0.7 Abs Baso <0.11 k/uL 0.05 Immature Gran % % 1.2 IMMATURE GRANS (ABS) <0.10 k/uL 0.08 NRBC /100 WBC 0.0 Absolute nRBC <0.01 k/uL <0.01 DTYPE Auto Protein, Total 6.3 - 8.0 g/dL 7.5 Albumin 3.9 - 4.9 g/dL 4.4 Calcium 8.5 - 10.2 mg/dL 9.6 Bilirubin, Total 0.2 - 1.3 mg/dL 0.4 Alkaline Phosphatase 34 - 123 U/L 66 AST 13 - 35 U/L 19 ALT 7 - 38 U/L 22 Glucose 74 - 99 mg/dL 99 BUN 7 - 21 mg/dL 20 Creatinine 0.58 - 0.96 mg/dL 0.74 Sodium 136 - 144 mmol/L 140 Potassium 3.7 - 5.1 mmol/L 4.2 Chloride 97 - 105 mmol/L 102 CO2 22 - 30 mmol/L 28 Anion Gap 9 - 18 mmol/L 10 eGFR >=60 mL/min/1.73m 95 TSH 0.270 - 4.200 mIU/L 0.971 0.051 (L) Free T4 0.9 - 1.7 ng/dL 1.2 1.5 Free T3 2.3 - 4.1 pg/mL 3.1 3.6 Microsomal Antibody <5.6 IU/mL <3.0 06/28/2022 9:58 PM - Radiology, [facility] In Impression IMPRESSION: Enlarged bilateral thyroid. Thyroid nodule(s) is/are present. Fine needle aspiration is recommended for one or more nodules as detailed in the synoptic report. TI-RADS Category: TR4 ACR Recommendation: TI-RADS 4 nodule. FNA is recommended. ACR recommendations are strictly based on the size and imaging appearance at the time of the exam and do not consider stability or previous biopsy results. Fish Processing Supervisor: NAHOMI Transcribe Date/Time: Jun 28 2022 9:52P Dictated by : TERRY SAM MD This examination was interpreted and the report reviewed and electronically signed by: TERRY SAM MD on Jun 28 2022 9:56PM EST Results-Findings * * *Final Report* * * DATE OF EXAM: Jun 26 2022 8:58[facility]PARATHYROID / PROCEDURE REASON: Nontoxic multinodular goiter * * * * Physician Interpretation * * * * EXAMINATION: THYROID ULTRASOUND CLINICAL HISTORY: Nontoxic multinodular goiter TECHNIQUE: Sonography and Doppler imaging of the thyroid was performed. Images were obtained and stored in a permanent archive. MQ: UST_1 COMPARISON: Ultrasound thyroid on 12/11/2017 RESULT: Right Lobe: 6.4 x 1.8 x 2.7 cm; heterogeneous echogenicity, expected vascular flow. Left Lobe: 6.8 x 2.9 x 2.4 cm; heterogeneous echogenicity, expected vascular flow. Isthmus: 0.8 cm The most suspicious thyroid nodule(s) (up to four) as below: NODULE 1: Location: Right mid Size: 0.8 x 0.9 x 0.6 cm, previously 0.8 x 0.8 x 0.5 cm. Characteristics: Composition: Solid or almost completely solid, 2 points Echogenicity: Hypoechoic, 2 points Shape: [id number], 0 points Margin: Smooth, 0 points Echogenic foci (add points for all that apply): None, 0 points Internal vascularity: absent Interval growth: No significant growth given differences in technique TI-RADS Category: TR4 ACR Recommendation: TI-RADS 4 nodule. No FNA or follow-up imaging is advised. NODULE 2: Location: Left mid to inferior Size: 3.0 x 2.5 x 2.0 cm, previously 2.2 x 1.6 x 1.3 cm. Characteristics: Composition: Solid or almost completely solid, 2 points Echogenicity: Isoechoic, 1 point Shape: [id number], 0 points Margin: Smooth, 0 points Echogenic foci (add points for all that apply): Punctate echogenic foci, 3 points Internal vascularity: present Interval growth: Significant interval growth (20% increase in at least two nodule dimensions and a minimal increase of 2 mm, or a 50% or greater increase in volume). TI-RADS Category: TR4 ACR Recommendation: TI-RADS 4 nodule. FNA is recommended. 08/06/2022 10:40 PM - Radiology, Oru In Impression IMPRESSION: Decrease 24-hour uptake of 3.9% images secondary to thyroiditis, thyrotoxicosis factitia, abdomen contamination, or less likely, struma ovarii. The left lower pole thyroid nodule may be secondary to functioning thyroid tissue/adenoma, although FNA is recommended. Fish Processing Supervisor: PSCB Transcribe Date/Time: Aug 06 2022 9:15A Dictated by : ABIGAIL BHATTI MD This examination was interpreted and the report reviewed and electronically signed by: PAM HOGAN MD on Aug 06 2022 10:38PM EST Results-Findings * * *Final Report* * * DATE OF EXAM: Aug 06 2022 8:58AM [facility] 0040 - NM THY UPTAKE AND SCAN / PROCEDURE REASON: multiple diagnoses * * * * Physician Interpretation * * * * I-123 NECK UPTAKE AND THYROID SCAN: HISTORY: Enlarging left inferior thyroid nodule with internal color Doppler flow. Suppressed TSH, normal T3 and T4. TECHNIQUE: 241 microcuries 123-I sodium iodide orally. COMPARISON: None CORRELATION: Thyroid ultrasound 06/26/2022 RESULT: 4-hour neck uptake is 2.4% (normal range 5-15%). 24-hour neck uptake is 3.9% (normal range 10-25%). Planar images demonstrate diffusely decreased uptake in the bilateral lobes without focal increasing diffuse uptake corresponding to the left lower pole nodule, perhaps slightly decreased uptake ASSESSMENT/PLAN: A pleasant 57 yo female patient with hx of breast ca, s/p lumpectomy on Exmestane, presenting for follow up of low TSH and thyroid nodules, Patient is known to have thyroid nodules since at least 2013. Reports US guided FNA left nodule benign, 2015? Last thyroid US was in 2018. Most recent thyroid US showed right small 0.9 cm hypoechoic nodule not significantly different [id number], and a larger 3 by 2.5 by 2 cm left mid nodule, this is significantly larger than in 2018 whenit measured 2.2 by 1.6 by 1.3. TSH low with nl free T4/free T3 and neg TPO, TSI not done. Note patient has had low normal TSH for a while. I 123 uptake and scan showed decreased uptake both lobes. The radiologist did not clearly state there is a increased uptake left lobe corresponding to the left thyroid nodule therefore nodule is hot,but his statement was very suggestive The left lower pole thyroid nodule may be secondary to functioning thyroid tissue/adenoma, although FNA is recommended. I reviewed images, and to my eye there seems to be an increased uptake left lobe/hot nodule? And ifso suppression of iodine uptake in the remainder of the thyroid gland would make sense. Rec: Discussed US guided FNA of left nodule( if not clearly hot nodule). Patient is agreeable. However, I want to repeat TFTs, and if still hyperthyroid, might reach out to radiology again and/or endocrine colleague for an opinion. If they agree with my impression of hot nodule left, then would forego FNA and treat. If not clear hot nodule, then would do FNA and go from there. VV 3-6 months. Some elements copied from my note 07/11/22 which have been updated where appropriate, and all reflectcurrent medical decision making from date of this visit. I spent a total of 30 minutes on the date of the service which included preparing to see the patient, [id number] patient care, completing clinical documentation, obtaining and/or reviewing separately obtained history, performing a medically appropriate examination, counseling and educating the pat ient, ordering medications, tests, or procedures and care coordination. Patrice Palencia MD documented in this encounterBrecksville [facility]06[facility] Nurse Note* Nicky Moore MA - 08/18/2022 11:18 AM EDT Appointment on 06/23/2022 Component Date Value Ref Range Status Free T4 06/23/2022 1.5 0.9 - 1.7 ng/dL Final Free T3 06/23/2022 3.6 2.3 - 4.1 pg/mL Final TPO ANTIBODY 06/23/2022 <3.0 <5.6 IU/mL Final Thyroid Peroxidase Antibody test is used as an aid in diagnosis of autoimmune thyroid disease. Clinical correlation is required. Appointment on 06/20/2022 Component Date Value Ref Range Status TSH 06/20/2022 0.051 (A) 0.270 - 4.200 mIU/L Final WBC 06/20/2022 6.74 3.70 - 11.00 k/uL Final RBC 06/20/2022 4.36 3.90 - 5.20 m/uL Final Hemoglobin 06/20/2022 12.9 11.5 - 15.5 g/dL Final Hematocrit 06/20/2022 40.1 36.0 - 46.0 % Final MCV 06/20/2022 92.0 80.0 - 100.0 fL Final MCH 06/20/2022 29.6 26.0 - 34.0 pg Final MCHC 06/20/2022 32.2 30.5 - 36.0 g/dL Final RDW-CV 06/20/2022 12.8 11.5 - 15.0 % Final Platelet Count 06/20/2022 510 (A) 150 - 400 k/uL Final MPV 06/20/2022 9.5 9.0 - 12.7 fL Final Neutrophils % 06/20/2022 51.0 % Final Abs Neut 06/20/2022 3.43 1.45 - 7.50 k/uL Final Lymphocytes % 06/20/2022 38.4 % Final Abs Lymph 06/20/2022 2.59 1.00 - 4.00 k/uL Final Monocytes % 06/20/2022 6.5 % Final Abs [place] 06/20/2022 0.44 <0.87 k/uL Final Eosinophils % 06/20/2022 2.2 % Final Abs Eosin 06/20/2022 0.15 <0.46 k/uL Final Basophils % 06/20/2022 0.7 % Final Abs Baso 06/20/2022 0.05 <0.11 k/uL Final Immature Granulocytes % 06/20/2022 1.2 % Final Abs Immature Gran 06/20/2022 0.08 <0.10 k/uL Final NRBC 06/20/2022 0.0 /100 WBC Final Absolute nRBC 06/20/2022 <0.01 <0.01 k/uL Final Diff Type 06/20/2022 Auto Final Protein, Total 06/20/2022 7.5 6.3 - 8.0 g/dL Final Albumin 06/20/2022 4.4 3.9 - 4.9 g/dL Final Calcium, Total 06/20/2022 9.6 8.5 - 10.2 mg/dL Final Bilirubin, Total 06/20/2022 0.4 0.2 - 1.3 mg/dL Final Alkaline Phosphatase 06/20/2022 66 34 - 123 U/L Final AST 06/20/2022 19 13 - 35 U/L Final ALT 06/20/2022 22 7 - 38 U/L Final Glucose 06/20/2022 99 74 - 99 mg/dL Final The [place] Diabetes Association (ADA) provides guidance for cutoff values for fasting glucose andrandom glucose. The ADA defines fasting as no caloric intake for at least 8 hours. Fasting plasma glucose results between 100 to 125 mg/dL indicate increased risk for diabetes (prediabetes). Fasting plasma glucose results greater than or equal to 126 mg/dL meet the criteria for diagnosis of diabetes. In the absence of unequivocal hyperglycemia, results should be confirmed by repeat testing. In a patient with classic symptoms of hyperglycemia or hyperglycemic crisis, random plasma glucose results greater than or equal to 200 mg/dL meet the criteria for diagnosis of diabetes. Reference: Standards of Medical Care in Diabetes 2016, [place] [employer]. Diabetes Care. 2016.39(Suppl 1). BUN 06/20/2022 20 7 - 21 mg/dL Final Creatinine 06/20/2022 0.74 0.58 - 0.96 mg/dL Final Sodium 06/20/2022 140 136 - 144 mmol/L Final Potassium 06/20/2022 4.2 3.7 - 5.1 mmol/L Final Chloride 06/20/2022 102 97 - 105 mmol/L Final CO2 06/20/2022 28 22 - 30 mmol/L Final Anion Gap 06/20/2022 10 9 - 18 mmol/L Final Estimated Glomerular Filtration Ra* 06/20/2022 95 >=60 mL/min/1.73m Final Estimated Glomerular Filtration Rate (eGFR) is calculated using the 2020 CKD-EPI creatinine equation. This equation utilizes serum creatinine, sex, and age as parameters. The creatinine assay has traceable calibration to isotope dilution- mass spectrometry. Refer to KDIGO guidelines for clinical interpretation. In patients with unstable renal function, e.g. those with acute kidney injury, the eGFRmay not accurately reflect actual GFR. documented in this encounterBrec[facility]ville [facility]06[facility] History of Present illness Narrative* Yenny Posadas RN - 08/14/2022 4:34 PM EDT IRB# [id number] Title: NRG BR007: A Phase III Clinical Trial Evaluating De- Escalation of Breast Radiation for Conservative Treatment of Stage I, Hormone Sensitive, Her2-Negative, Oncotype Recurrence Score <= 18 Breast Cancer. Consent Date: 11/18/2021 Randomization Date: 11/18/2021 Treatment ARM: HT - TA2 Patient here today for 9 month post randomization visit. Patient expressed baseline issues - added,as well as, new symptoms. Patients dry skin has resolved. Patient feeling much more herself and less depressed and anxious since starting Effexor - switched patient to Effexor from Wellbutrin.The patient was seen today, because she was having issues with zometa and Aromasin. However, they have been doing a work up on her thyroid that needs to be biopsied. Otherwise, patient feels they are doing very well. Patient states compliance with endocrine therapy. No missed doses. Patient ECOG 0/ KPS 100 by Gladis Byrd MD 11/15/2021 QOL: Completed - Scanned Annual Mammogram: It was performed early in April - Meghann would like to make that the annual time point and does not want to repeat one in September Labs: Not due until 12 months Vitals: August 14, 2022 Baseline Weight 89.3 kg (196 lb 12.8 oz) Weight 88.9 kg (196 lb) 0.44% Decrease BSA 0 BMI 0 Temp 36.5 C (97.7 F) Pulse 67 Resp 16 Pulse OX 97 BP 122/74 Current medications reviewed with patient as reported below: Current Outpatient Medications on File Prior to Visit Medication Sig Start/Stop Use [START ON 11/25/2021] exemestane (AROMASIN) 25 mg tablet Take 1 tablet by mouth once daily. Start:11/25/2021 endocrine therapy cyclobenzaprine (FLEXERIL) 10 mg tablet Take 0.5-1 tablets by mouth three times daily as needed formuscle spasm. Start: 11/15/2021 Stopped:12/07/2021 Start:03/09/2022 Muscle relaxer meloxicam (MOBIC) 15 mg tablet Take 1 tablet by mouth once daily. Start: 07/23/2021 Stopped:09/06/2021 Start:03/09/2022 Pain buPROPion SR (WELLBUTRIN SR) 150 mg 12 hr tablet Take 1 tablet by mouth twice daily. Start:07/07/2014 Stop:05/13/2022 Depression and Smoking Cessation omeprazole (PRILOSEC) 20 mg capsule Take 20 mg by mouth once daily. Start:2019 GERD MULTI-VITAMIN ORAL Take by mouth once daily. Start: >15 years Supplement fluticasone (FLONASE) 50 mcg/actuation nasal spray Use 2 Sprays in each nostril once daily. Rinse mouth after use. Start: 07/12/2013 Allergies Vanalafexine (EFFEXOR XR) 150 mg Take by mouth once daily. Start:05/14/2022 Depression Citracal with vitamin D Take by mouth once daily. Start:02/13/2022 Supplement No current facility-administered medications on file prior to visit. Baseline Toxicities per CTCAE v. 5: All predate therapy, are chronic conditions and will not be actively followed unless they worsen during the clinical trial. Pain; Other; bilateral knees: Grade 1 Start date:PRIOR TO STUDY Unrelated to study drug - Resolved:No Treatment: Meloxicam Outcome: Continue to monitor Action Required: Not at this time Dry Mouth Grade 1 Start date:PRIOR TO STUDY - Unrelated to study drug - Resolved: No Treatment: No Outcome: Continue to monitor Action Required: Not at this time Toxicities per CTCAE v. 5 Hypertension Grade 1 Start date:02/12/2022 Unrelated to study drug - Resolved: No Treatment: No Outcome: Continue to monitor Action Required: Not at this time Hot Flashes Grade 1 Start date:02/12/2022 Related to study drug - Resolved: No Treatment: No Outcome: Continue to monitor - but improving since Effexor was added on Action Required: Not at this time Depression Grade 2 Start date:05/13/2022 Stopped:05/21/2022 Likely related to study drug Treatment: Effexor Outcome: Continue monitoring Action Required: No. Resolved: Yes Anxiety Grade 1 Start date:05/13/2022 Stopped:05/21/2022 Likely related to study drug Treatment: Effexor Outcome: Continue monitoring Action Required: No.Resolved: Yes Dry Skin Grade 1 Start date:12/25/2021 Stopped:05/26/2022 Likely related to study drug Treatment: Cera Vae and stop dial soap Outcome: Continue monitoring Action Required: No. Resolved: Yes Edema Limbs; Right Arm Grade 1 Start date:05/06/2022 Related to Zometa Treatment: No. Outcome: Continue monitoring Action Required: No.Resolved: No Patient meets all Criteria for Study Participation: Yes Patient knows to RTC in 3 months for follow-up for med changes and CTD/QOL. Patient knows to call in the interim for any questions or concerns. Patient has contact information for Yenny Posadas Research Nurse and Dr. Byrd and , along with the 24 hour On-Call number for the On-Call Oncology Fellow ([phone]). DANA Bond, RN Clinical Research Nurse [phone] documented in this encounterBrecksville [facility]05[facility]30-[facility] NoteHNO ID: [id number] Author: RT Lalo(R) Service: ? Author Type: Technologist Type: Progress Notes Filed: 08/05/2022 9:31 AM Note Text:[id number] NoteHNO ID: [id number] Author: RT Lalo(R) Service: ? Author Type: Technologist Type: Progress Notes Filed: 08/05/2022 9:09 AM Note Text: RADIOLOGY SERVICE PROGRESS NOTE SERVICE DATE: 08/05/2022 SERVICE TIME: 9:08 AM PATIENT IDENTITY VERIFICATION COMPLETED USING TWO (2) STANDARD IDENTIFIERS: Name and Date of confirmed by patient verbally and Name and Date of confirmed by identification band FALL SCREENING: Has the patient had 2 falls in the last year or 1 fall with injury or currently using an Ambulatory Assistive Device (Walker, Cane, Wheelchair, Crutches, etc.)? No PATIENT GENDER DATA: .female : No ALLERGIES: Reviewed and unchanged MEDICATIONS REVIEWED: No PATIENT RELEVANT IMPLANT DATA REVIEWED: Not Applicable CREATININE: Creatinine Date Value Ref Range Status 06/20/2022 0.74 0.58 - 0.96 mg/dL Final 05/05/2022 0.85 0.58 - 0.96 mg/dL Final 06/17/2021 0.87 0.58 - 0.96 mg/dL Final Estimated Glomerular Filtration Rate Date Value Ref Range Status 06/20/2022 95 >=60 mL/min/1.73m? Final Comment: Estimated Glomerular Filtration Rate (eGFR) is calculated using the 2020 CKD-EPI creatinine equation. This equation utilizes serum creatinine, sex, and age as parameters. The creatinine assay has traceable calibration to isotope dilution-mass spectrometry. Refer to KDIGO guidelines for clinical interpretation. In patients with unstable renal function, e.g. those with acute kidney injury, the eGFR may not accurately reflect actual GFR. eGFR- Date Value Ref Range Status 08/13/2015 >60 Final P.O.C.T. RESULTS: N/A August 05, [address] PERFORMED: No IV SITE: NM only - not applicable, oral or physician administered agents given to patient POST EXAM PIV STATUS: Not applicable PROCEDURE TYPE: NM INJECT: Thyroid scan and uptake. 241 microcuries Nal-123 Capsules. No other medications given.. ADMINISTRATION TIME: 834 PATIENT DISCHARGED TO: Ambulatory patient, left NC department area. A Diagnostic radioactive procedure has taken place, with no further precautions necessary other than routine body substance precautions. More information regarding radiation safety can be found using this link: [email or web address] SIGNATURE: PETRA May) PATIENT NAME: Rebeca Wilson DATE: August 05, 2022 TIME: 9:08 AM [id number] History of Present illness Narrative* PETRA May) - 08/05/2022 8:30 AM EDT * PETRA May) - 08/05/2022 8:30 AM EDT RADIOLOGY SERVICE PROGRESS NOTE SERVICE DATE: 08/05/2022 SERVICE TIME: 9:08 AM PATIENT IDENTITY VERIFICATION COMPLETED USING TWO (2) STANDARD IDENTIFIERS: Name and Date of confirmed by patient verbally and Name and Date of confirmed by identification band FALL SCREENING: Has the patient had 2 falls in the last year or 1 fall with injury or currently using an Ambulatory Assistive Device (Walker, Cane, Wheelchair, Crutches, etc.)? No PATIENT GENDER DATA: .female : No ALLERGIES: Reviewed and unchanged MEDICATIONS REVIEWED: No PATIENT RELEVANT IMPLANT DATA REVIEWED: Not Applicable CREATININE: Creatinine Date Value Ref Range Status 06/20/2022 0.74 0.58 - 0.96 mg/dL Final 05/05/2022 0.85 0.58 - 0.96 mg/dL Final 06/17/2021 0.87 0.58 - 0.96 mg/dL Final Estimated Glomerular Filtration Rate Date Value Ref Range Status 06/20/2022 95 >=60 mL/min/1.73m Final Comment: Estimated Glomerular Filtration Rate (eGFR) is calculated using the 2020 CKD-EPI creatinine equation. This equation utilizes serum creatinine, sex, and age as parameters. The creatinine assay has traceable calibration to isotope dilution- mass spectrometry. Refer to KDIGO guidelines for clinical interpretation. In patients with unstable renal function, e.g. those with acute kidney injury, the eGFRmay not accurately reflect actual GFR. eGFR- Date Value Ref Range Status 08/13/2015 >60 Final P.O.C.T. RESULTS: N/A August 05, [address] PERFORMED: No IV SITE: NM only - not applicable, oral or physician administered agents given to patient POST EXAM PIV STATUS: Not applicable PROCEDURE TYPE: NM INJECT: Thyroid scan and uptake. 241 microcuries Nal-123 Capsules. No other medications given.. ADMINISTRATION TIME: 0835 PATIENT DISCHARGED TO: Ambulatory patient, left NM department area. A Diagnostic radioactive procedure has taken place, with no further precautions necessary other than routine body substance precautions. More information regarding radiation safety can be found usingthis link: [email or web address] 20Diagnostic%20Nuclear%20Medicine%[email or web address] SIGNATURE: PETRA May) PATIENT NAME: Rebeca Wilson DATE: August 05, 2022 TIME: 9:08 AM PAGER/CONTACT #: documented in this encounterBrec[facility] History of Present illness Narrative* Patrice Palencia MD - 07/11/2022 10:19 AM EDT Images from the original note were not included. VIRTUAL VISIT PROGRESS NOTE This is a virtual visit using [employer] video visit. It required patient-provider interaction for themedical decision making as documented below. I have communicated my name and active licensure. The patient's identity and physical location wereverified at the time of this visit. Either the patient or their legal access services representative has been informed of the risks and benefits of -- and alternatives to -- treatment through a remote evaluation andconsents to proceed with the evaluation remotely. Rebeca Wilson is a 56 year old female seen for low TSH and thyroid nodule. 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 Obese thyroid nodule PAST SURGICAL HISTORY Procedure Laterality Date BIOPSY THYROID 08/2013 BREAST LUMPECTOMY HX 10/2021 COLONOSCOPY FLX DX W/COLLJ SPEC WHEN PFRMD 11/28/2016 COLONOSCOPY FLX DX W/COLLJ SPEC WHEN PFRMD 01/31/2020 TUBAL LIGATION, 1990 FAMILY HISTORY Problem Relation Age of Onset Hypertension Mother Allergies Mother Cancer Father 57 lung-smoker COPD Sister None Sister Breast Cancer Paternal Grandmother 79 Cancer Paternal Grandmother 89 unknown abdominal cancer Colon Cancer Paternal Grandfather 66 Cancer Paternal Aunt 63 lung - smoker Breast Cancer Paternal Aunt 68 Renal Cell Cancer Paternal Uncle 65 Cancer Paternal Uncle 72 adrenal Breast Cancer Paternal great-grandmother Breast Cancer Other 2 paternal great aunts, unknown ages Social History Tobacco Use Smoking status: Former Packs/day: 1.00 Years: 32.00 Pack years: 32.00 Types: Cigarettes Start date: 08/04/1983 Quit date: 08/07/2015 Years since quittin.9 Smokeless tobacco: Never Vaping Use Vaping Use: Never used Substance Use Topics Alcohol use: Yes Comment: Not weekly Drug use: No Current Outpatient Medications Medication Sig calcium carbonate/vitamin D3 (CALTRATE 600 + D ORAL) meloxicam (MOBIC) 15 mg tablet Take 1 tablet by mouth once daily. venlafaxine ER (EFFEXOR XR) 150 mg 24 hr capsule TAKE 1 CAPSULE BY MOUTH ONCE DAILY exemestane (AROMASIN) 25 mg tablet TAKE 1 TABLET ONCE DAILY cyclobenzaprine (FLEXERIL) 10 mg tablet Take 0.5-1 tablets by mouth three times daily as needed formuscle spasm. omeprazole (PRILOSEC) 20 mg capsule Take 20 mg by mouth once daily. MULTI-VITAMIN ORAL Take by mouth once daily. fluticasone (FLONASE) 50 mcg/actuation nasal spray Use 2 Sprays in each nostril once daily. Rinse mouth after use. No current facility-administered medications for this visit. ALLERGIES Allergen Reactions Zometa [Zoledronic * Other: See Comments Joint tenderness & soreness, difficulty breathing due to severe pain REVIEW OF SYSTEMS: Answers submitted by the patient for this visit: Endocrine Review of Systems (Submitted on 07/09/2022) Fatigue: Yes Night Sweats: No Recent Unintentional Weight Change: Yes Skin Color Changes: No Post-Nasal Drip: Yes Thyroid Pain (lower neck): No Trouble Swallowing: No Vision Disturbance: No Chest Pain: No Leg Swelling: No Blood Clots?: No Leg Pain while walking?: No Difficulty Breathing?: No Heartburn: Yes Nausea: No Vomiting?: No Diarrhea: No Constipation: No Abdominal Pain: No Bone Pain?: No Muscle Aches: Yes Muscle Weakness: Yes Joint Pain or Stiffness: Yes Headaches: No Dizziness: No Numbness?: No Urgency to Urinate?: No Increased Urination?: No Slow or Small Urine Stream?: No Are your menstrual cycles regular?: No Are your menstrual cycles irregular?: No Have your menstrual cycles stopped?: Yes Flushing?: No Hot Flashes?: Yes Increased Thirst: No Change in Body Hair?: No Cold Intolerance: No Heat Intolerance?: No HPI: 56 yo pleasant female patient. She had CPE last month. Reported being tired, so had TFTs checked. TSH was low with nl free T4/free T3 and neg TPO, TSI not done. Note patient has had low normal TSH for a while. Subsequently, had thyroid US 06/26/22. This showed enlarged thyroid with multiple nodules. Of note, patient is known to have thyroid nodules since at least 2014 Reports US guided FNA left nodule benign, 2015? Last thyroid US was in 2018. Most recent thyroid US showed right small 0.9 cm hypoechoic nodule not significantly different [id number], and a larger 3 by 2.5 by 2 cm left mid nodule, this is significantly larger than in 2018 whenit measured 2.2 by 1.6 by 1.3 Note had CTA to R/O PE/IV contrast 05/06/22 s/p lumpectomy Oct 2021, and is in a clinical trial, did not receive radiation. On Exmestane since.Did not do well with Zometa ordered by Hematology to prevent osteoporosis( severe reaction for which got above CTA to r/o PE). Has been more irritable. Also depression and body aches, latter attributed to Exmestane, as well maryjane flashes. Has had some palpitations recently, and mild tremor. No change in BM Weight fluctuates but no sig changes in the last few months.. No neck related sx, but neck feels full like a bunch of phlem sitting there. Has PND/sinus issues all the time. No hoarseness except during allergy season. No dysphagia. No recent URI sx. Grandmother had hypothyroidism. No thyroid cancer in the family. No hx of head or neck irradiation. On MVI daily. Not on on Biotin. PHYSICAL EXAMINATION: VIDEO EXAM: (if completed, performed via video enabled technology) GENERAL: alert and appropriate, in no distress, well-hydrated, well nourished, and happy, smiling, interactive Slightly enlarged thyroid.with visible nodule on the left side. Labs: Component Latest Ref Rng & Units 06/17/2021 06/20/2022 06/23/2022 WBC 3.70 - 11.00 k/uL 6.74 RBC 3.90 - 5.20 m/uL 4.36 Hemoglobin 11.5 - 15.5 g/dL 12.9 Hematocrit 36.0 - 46.0 % 40.1 MCV 80.0 - 100.0 fL 92.0 MCH 26.0 - 34.0 pg 29.6 MCHC 30.5 - 36.0 g/dL 32.2 RDW-CV 11.5 - 15.0 % 12.8 Platelet Count 150 - 400 k/uL 510 (H) MPV 9.0 - 12.7 fL 9.5 Neut% % 51.0 Abs Neut (ANC) 1.45 - 7.50 k/uL 3.43 Lymph% % 38.4 Abs Lymph 1.00 - 4.00 k/uL 2.59 [place]% % 6.5 Abs [place] <0.87 k/uL 0.44 Eosin% % 2.2 Abs Eosin <0.46 k/uL 0.15 Baso% % 0.7 Abs Baso <0.11 k/uL 0.05 Immature Gran % % 1.2 IMMATURE GRANS (ABS) <0.10 k/uL 0.08 NRBC /100 WBC 0.0 Absolute nRBC <0.01 k/uL <0.01 DTYPE Auto Protein, Total 6.3 - 8.0 g/dL 7.5 Albumin 3.9 - 4.9 g/dL 4.4 Calcium 8.5 - 10.2 mg/dL 9.6 Bilirubin, Total 0.2 - 1.3 mg/dL 0.4 Alkaline Phosphatase 34 - 123 U/L 66 AST 13 - 35 U/L 19 ALT 7 - 38 U/L 22 Glucose 74 - 99 mg/dL 99 BUN 7 - 21 mg/dL 20 Creatinine 0.58 - 0.96 mg/dL 0.74 Sodium 136 - 144 mmol/L 140 Potassium 3.7 - 5.1 mmol/L 4.2 Chloride 97 - 105 mmol/L 102 CO2 22 - 30 mmol/L 28 Anion Gap 9 - 18 mmol/L 10 eGFR >=60 mL/min/1.73m 95 TSH 0.270 - 4.200 mIU/L 0.971 0.051 (L) Free T4 0.9 - 1.7 ng/dL 1.2 1.5 Free T3 2.3 - 4.1 pg/mL 3.1 3.6 Microsomal Antibody <5.6 IU/mL <3.0 06/28/2022 9:58 PM - Radiology, [place] In Impression IMPRESSION: Enlarged bilateral thyroid. Thyroid nodule(s) is/are present. Fine needle aspiration is recommended for one or more nodules as detailed in the synoptic report. TI-RADS Category: TR4 ACR Recommendation: TI-RADS 4 nodule. FNA is recommended. ACR recommendations are strictly based on the size and imaging appearance at the time of the exam and do not consider stability or previous biopsy results. Fish Processing Supervisor: PSCB Transcribe Date/Time: Jun 28 2022 9:52P Dictated by : TERRY SAM MD This examination was interpreted and the report reviewed and electronically signed by: TERRY SAM MD on Jun 28 2022 9:56PM EST Results-Findings * * *Final Report* * * DATE OF EXAM: Jun 26 2022 8:58AM [facility]/PARATHYROID / PROCEDURE REASON: Nontoxic multinodular goiter * * * * Physician Interpretation * * * * EXAMINATION: THYROID ULTRASOUND CLINICAL HISTORY: Nontoxic multinodular goiter TECHNIQUE: Sonography and Doppler imaging of the thyroid was performed. Images were obtained and stored in a permanent archive. MQ: UST_1 COMPARISON: Ultrasound thyroid on 12/11/2017 RESULT: Right Lobe: 6.4 x 1.8 x 2.7 cm; heterogeneous echogenicity, expected vascular flow. Left Lobe: 6.8 x 2.9 x 2.4 cm; heterogeneous echogenicity, expected vascular flow. Isthmus: 0.8 cm The most suspicious thyroid nodule(s) (up to four) as below: NODULE 1: Location: Right mid Size: 0.8 x 0.9 x 0.6 cm, previously 0.8 x 0.8 x 0.5 cm. Characteristics: Composition: Solid or almost completely solid, 2 points Echogenicity: Hypoechoic, 2 points Shape: [id number], 0 points Margin: Smooth, 0 points Echogenic foci (add points for all that apply): None, 0 points Internal vascularity: absent Interval growth: No significant growth given differences in technique TI-RADS Category: TR4 ACR Recommendation: TI-RADS 4 nodule. No FNA or follow-up imaging is advised. NODULE 2: Location: Left mid to inferior Size: 3.0 x 2.5 x 2.0 cm, previously 2.2 x 1.6 x 1.3 cm. Characteristics: Composition: Solid or almost completely solid, 2 points Echogenicity: Isoechoic, 1 point Shape: Qopkv-jtuk-mbit, 0 points Margin: Smooth, 0 points Echogenic foci (add points for all that apply): Punctate echogenic foci, 3 points Internal vascularity: present Interval growth: Significant interval growth (20% increase in at least two nodule dimensions and a minimal increase of 2 mm, or a 50% or greater increase in volume). TI-RADS Category: TR4 ACR Recommendation: TI-RADS 4 nodule. FNA is recommended. ASSESSMENT/PLAN: A pleasant 56 yo female patient with hx of breast ca, s/p lumpectomy on Exmestane, presenting for eval and management of low TSH and nodular goiter with dominant left 3 cm nodule. Patient is known to have thyroid nodules since at least 2013 Reports US guided FNA left nodule benign, 2015? Last thyroid US was in 2018. Most recent thyroid US showed right small 0.9 cm hypoechoic nodule not significantly different [id number], and a larger 3 by 2.5 by 2 cm left mid nodule, this is significantly larger than in 2018 whenit measured 2.2 by 1.6 by 1.3. TSH with nl free T4/free T3 and neg TPO, TSI not done. Note patient has had low normal TSH for a while. Clinically euthyroid, mildly hyperthyroid. Discussed with patient suspect left toxic nodule: As above TSH low normal for a while and the increase in the size of the left thyroid nodule is concomitant with the lower TSH, now frankly in the hyperthyroid range. If this is the case, meaning left nodule is hot, then will forego US guided FNA( very low risk of thyroid cancer), and treat hyperthyroidism , discussed options If nodule is cold on scan, US guided FNA is recommended, and treatment options will depend on results. Rec: Get I 123 uptake and scan to further eval nodule/hyperthyroidism as above. Stop MVI now. Needs to be off for at least 2 weeks before I 123 uptake scan. Had IV contrast for CTA but this was > 6 weeks ago, so no issues for the scan. Consider checking TSI with next lab draw. Schedule VV 1 -2 weeks after the scan. I spent a total of 60 minutes on the date of the service which included preparing to see the patient, [id number] patient care, completing clinical documentation, obtaining and/or reviewing separately obtained history, performing a medically appropriate examination, counseling and educating the pat ient, ordering medications, tests, or procedures and care coordination. Patrice Palencia MD documented in this encounterBrecksville [facility]04-[facility] Miscellaneous Notes* Telephone Encounter - Nicolasa Padilla - 07/01/2022 10:41 AM EDT PT transferred to [facility]. Nicolasa PSS * Telephone Encounter - Mary Chino LPN - 07/01/2022 8:36 AM EDT Patient notified of providers message and verbalized understanding. Patient would like to proceed with consult to endocrine surgeon as well for FNA of nodule. Encounter routed to PSR to assist patient in scheduling. * Telephone Encounter - Celeste Salcedo, PRIVATE TUTOR.TRACK PRODUCTION ENGINEER - 07/01/2022 8:20 AM EDT Please let her know that T3-T4 and thyroid peroxidase were within normal limits. Ultrasound of her thyroid shows nodule which has increased in size by ~20% and FNA is advised. She has an upcoming appointment with putty glazer, will likely need to see endocrine surgery as well for FNA of nodule. Consult placed, schedule if willing. If she so desires can wait to speak with putty glazer first - July 11 appt. is scheduled. Component Latest Ref Rng & Units 06/20/2022 06/23/2022 WBC 3.70 - 11.00 k/uL 6.74 RBC 3.90 - 5.20 m/uL 4.36 Hemoglobin 11.5 - 15.5 g/dL 12.9 Hematocrit 36.0 - 46.0 % 40.1 MCV 80.0 - 100.0 fL 92.0 MCH 26.0 - 34.0 pg 29.6 MCHC 30.5 - 36.0 g/dL 32.2 RDW-CV 11.5 - 15.0 % 12.8 Platelet Count 150 - 400 k/uL 510 (H) MPV 9.0 - 12.7 fL 9.5 Neut% % 51.0 Abs Neut (ANC) 1.45 - 7.50 k/uL 3.43 Lymph% % 38.4 Abs Lymph 1.00 - 4.00 k/uL 2.59 [place]% % 6.5 Abs [place] <0.87 k/uL 0.44 Eosin% % 2.2 Abs Eosin <0.46 k/uL 0.15 Baso% % 0.7 Abs Baso <0.11 k/uL 0.05 Immature Gran % % 1.2 IMMATURE GRANS (ABS) <0.10 k/uL 0.08 NRBC /100 WBC 0.0 Absolute nRBC <0.01 k/uL <0.01 DTYPE Auto Protein, Total 6.3 - 8.0 g/dL 7.5 Albumin 3.9 - 4.9 g/dL 4.4 Calcium 8.5 - 10.2 mg/dL 9.6 Bilirubin, Total 0.2 - 1.3 mg/dL 0.4 Alkaline Phosphatase 34 - 123 U/L 66 AST 13 - 35 U/L 19 ALT 7 - 38 U/L 22 Glucose 74 - 99 mg/dL 99 BUN 7 - 21 mg/dL 20 Creatinine 0.58 - 0.96 mg/dL 0.74 Sodium 136 - 144 mmol/L 140 Potassium 3.7 - 5.1 mmol/L 4.2 Chloride 97 - 105 mmol/L 102 CO2 22 - 30 mmol/L 28 Anion Gap 9 - 18 mmol/L 10 eGFR >=60 mL/min/1.73m 95 TSH 0.270 - 4.200 mIU/L 0.051 (L) Free T4 0.9 - 1.7 ng/dL 1.5 Free T3 2.3 - 4.1 pg/mL 3.6 Microsomal Antibody <5.6 IU/mL <3.0 documented in this encounterBrecksville [facility]04-25-[facility] History of Present illness Narrative* Trina Jorgensen MD - 07/01/2022 8:41 AM EDT Rebeca is a 56 year old who presents for an annual gynecologic exam without complaints. Postmenopausal: Yes since age 53 HRT use: No. Last Pap: 07/09/2021 normal HPV: 07/05/2021 negative History of abnormal pap: No Last mammogram: 2022 normal History of abnormal mammogram: Yes Diagnosed with breast cancer in September. Sexually active: No History of STDS: None History of fibroids: Yes, Hot flashes: Yes Night sweats: No Vaginal dryness: Yes Mood swings: yes, but much better since starting Effexor OB History T0 L3 SAB1 IAB1 Ectopic0 Multiple0 Live Births3 Comment: Menarche: 13; Age at 1st : 19; Post menopausal Fryline Attendant History LMP: 07/28/2015 (Exact Date), Postmenopausal Age at Menarche: Age at First : Age at Menopause: Fryline Attendant History Comments: Sexual Activity: Yes; Male Contraception: Tubal Ligation, Vasectomy 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 Obese thyroid nodule PAST SURGICAL HISTORY Procedure Laterality Date BIOPSY THYROID 08/2013 BREAST LUMPECTOMY HX 10/2021 COLONOSCOPY FLX DX W/COLLJ SPEC WHEN PFRMD 11/28/2016 COLONOSCOPY FLX DX W/COLLJ SPEC WHEN PFRMD 01/31/2020 TUBAL LIGATION, 1990 FAMILY HISTORY Problem Relation Age of Onset Hypertension Mother Allergies Mother Cancer Father 57 lung-smoker COPD Sister None Sister Breast Cancer Paternal Grandmother 79 Cancer Paternal Grandmother 89 unknown abdominal cancer Colon Cancer Paternal Grandfather 66 Cancer Paternal Aunt 63 lung - smoker Breast Cancer Paternal Aunt 68 Renal Cell Cancer Paternal Uncle 65 Cancer Paternal Uncle 72 adrenal Breast Cancer Paternal great-grandmother Breast Cancer Other 2 paternal great aunts, unknown ages SOCIAL HISTORY Social History Tobacco Use Smoking status: Former Packs/day: 1.00 Years: 32.00 Pack years: 32.00 Types: Cigarettes Start date: 08/04/1983 Quit date: 08/07/2015 Years since quittin.9 Smokeless tobacco: Never Vaping Use Vaping Use: Never used Substance Use Topics Alcohol use: Yes Comment: Not weekly Drug use: No REVIEW OF SYSTEMS Abdomen: No abdominal pain, nausea, vomiting, diarrhea, or constipation. No bloating, early satiety, indigestion, or increased flatulence. Bladder: Some stress incontinence when picking up grandchildren. No dysuria, gross hematuria, urinary frequency, urinary urgency, or incontinence Breast: No breast lumps, nipple d/c, overlying skin changes, redness or skin retraction TEACHING PHYSICIAN NOTE OF PERSONAL INVOLVEMENT IN CARE: I have personally seen and examined the patient and performed the medical decision-making components. I have reviewed the medical student documentation and verified the findings in the note as written. Any additions or changes are noted in bold/italics. Signature: Trina Jorgensen Date: 07/01/2022 Time: 9:07 AM Allergies and current medication updated:Yes EXAM: Ht 5' 5.5 (1.66m) Wt 194 lb (88.0kg) LMP 07/28/2015 BMI 31.78 kg/(m^2). GENERAL: pleasant, female in no apparent distress HEENT: Normocephalic, atraumatic, mucus membranes moist, and no lesions NECK: Supple, full range of motion, no adenopathy, and thyroid normal DERMATOLOGY: Normal, without lesions, non-icteric, and non-hirsute BREAST: soft, non-tender, symmetric, no dominant mass, normal nipple-areolar complex, no lymphadenopathy, and no nipple discharge CHEST: Normal inspiratory effort ABDOMEN: soft, non-tender, and no masses PELVIC: external genitalia normal, normal Bartholin's glands, urethra, Adeline's glands, no vulvar lesions, no cervical lesions, good vaginal support, physiologic discharge present, normal appearing perineal body and perianal region, cystocele 1st degree BIMANUAL: uterus normal size, shape and consistency, no adnexal masses, and non-tender RECTOVAGINAL: deferred. NEURO: alert and oriented x3,exam grossly non-focal EXTREMITIES: normal ASSESSMENT/PLAN: 1) Health maintenance: Pap/HPV up to date. Mammogram up to date Colon cancer screening: up to date with screening 2) Follow up one year or sooner as needed Trina Jorgensen MD documented in this encounterBrecksville [facility]04-20-[facility] History of Present illness Narrative* Padmini Falcon RDMS - 06/26/2022 7:45 AM EDT Radiology Service Progress Note PATIENT NAME: Rebeca Wilson DATE OF SERVICE: June 26, 2022 TIME: 9:37 AM PATIENT IDENTITY VERIFICATION COMPLETED USING TWO (2) IDENTIFIERS: Name and Date of confirmedby patient verbally. FALL SCREENING: Has the patient had 2 falls in the last year or 1 fall with injury or currently using an Ambulatory Assistive Device (Walker, Cane, Wheelchair, Crutches, etc.)? No PATIENT GENDER DATA: Female. status: : No status: NO. PATIENT RELEVANT IMPLANT DATA REVIEWED: Not Applicable RADIOLOGY DEPARTMENT: Ultrasound PERIPHERAL IV DATA: Not applicable SIGNED BY: Padmini Falcon RDMS June 26, 2022 9:37 AM documented in this encounterBrecksville [facility]04-17-[facility]23 Miscellaneous Notes* Telephone Encounter - Gia Henning Ma - 06/23/2022 10:16 AM EDT Pt notified. She is going to get the blood work done today at 3 pm as scheduled. Transferred to [facility] to est up Endo appt. Gia Henning Ma * Telephone Encounter - Celestealeisha Salcedo APRN.TRACK PRODUCTION ENGINEER - 06/23/2022 8:37 AM EDT Please let her know overall labs are in acceptable range except for: 1-TSH is low, this means her thyroid is overactive. Recommend she make an appointment with endocrinology at her earliest convenience. Complete ultrasound of thyroid -scheduled for this week Check with add-on lab to see if T3 and T4 and thyroid antibody labs can be added from 06/20/2022 labdraw. 2-Platelets are a bit elevated, have been trending upward. Can discuss this at her next appt with Dr Zavaleta. Component Latest Ref Rng & Units 06/20/2022 WBC 3.70 - 11.00 k/uL 6.74 RBC 3.90 - 5.20 m/uL 4.36 Hemoglobin 11.5 - 15.5 g/dL 12.9 Hematocrit 36.0 - 46.0 % 40.1 MCV 80.0 - 100.0 fL 92.0 MCH 26.0 - 34.0 pg 29.6 MCHC 30.5 - 36.0 g/dL 32.2 RDW-CV 11.5 - 15.0 % 12.8 Platelet Count 150 - 400 k/uL 510 (H) MPV 9.0 - 12.7 fL 9.5 Neut% % 51.0 Abs Neut (ANC) 1.45 - 7.50 k/uL 3.43 Lymph% % 38.4 Abs Lymph 1.00 - 4.00 k/uL 2.59 [place]% % 6.5 Abs [place] <0.87 k/uL 0.44 Eosin% % 2.2 Abs Eosin <0.46 k/uL 0.15 Baso% % 0.7 Abs Baso <0.11 k/uL 0.05 Immature Gran % % 1.2 IMMATURE GRANS (ABS) <0.10 k/uL 0.08 NRBC /100 WBC 0.0 Absolute nRBC <0.01 k/uL <0.01 DTYPE Auto Protein, Total 6.3 - 8.0 g/dL 7.5 Albumin 3.9 - 4.9 g/dL 4.4 Calcium 8.5 - 10.2 mg/dL 9.6 Bilirubin, Total 0.2 - 1.3 mg/dL 0.4 Alkaline Phosphatase 34 - 123 U/L 66 AST 13 - 35 U/L 19 ALT 7 - 38 U/L 22 Glucose 74 - 99 mg/dL 99 BUN 7 - 21 mg/dL 20 Creatinine 0.58 - 0.96 mg/dL 0.74 Sodium 136 - 144 mmol/L 140 Potassium 3.7 - 5.1 mmol/L 4.2 Chloride 97 - 105 mmol/L 102 CO2 22 - 30 mmol/L 28 Anion Gap 9 - 18 mmol/L 10 eGFR >=60 mL/min/1.73m 95 TSH 0.270 - 4.200 mIU/L 0.051 (L) documented in this encounterBrecksville [facility]04-14-2023 Instructions* Patient Instructions* Celeste Salcedo APRN.CNS - 06/20/2022 9:15 AM EDT Check to see if your insurance covers shingles and Tdap vaccine and what location to get the vaccine -usually best covered at your local pharmacy where you get prescriptions filled documented in this encounterBrecks[facility] History of Present illness Narrative* Celeste Salcedo APRN.CNS - 06/20/2022 9:00 AM EDT SUBJECTIVE: SHINGRIX VACCINE(1 of 2) Never done DTAP,TDAP,TD(2 - Td or Tdap) due on 10/13/2018 DEPRESSION ASSESSMENT Never done HPI Rebeca Wilson is a 56 year old female. PMH significant for ACTIVE PROBLEM LIST Seborrheic Keratosis Arthralgia of hands Thyroid Nodule Nontoxic Multinodular Goiter Screening Mammogram, Encounter for Malignant Neoplasm of Upper-Inner Quadrant of Right Breast in Female, Estrogen Receptor Positive (Hcc) Family History of Breast Cancer Invasive Ductal Carcinoma of Breast, Right (Hcc) History of Covid-19 Gerd (Gastroesophageal Reflux Disease) Mood Disorder (Hcc) Obese Obesity, Class I, Bmi 30-34.9 Other Chest Pain Followed by Dr Zavaleta hematology oncology for invasive ductal carcinoma right breast. Seen by PCP December 2021, counseled healthy diet and exercise, adequate calcium intake and need benefit for weight loss. Treated with cyclobenzaprine for back pain and pelvic pain. Outside labs 05/2022- see scanned documents. Reaction to Zometa 2022. CT chest [facility] May 06, 2022 completed for diffuse pleuritic chest pain showed mildly diffuse enlarged left lobe of the thyroid gland with a hypodense nodule most likely representing goitrous enlargement- see scanned documents. Small benign-appearing bilateral axillary lymph nodes. Thyroid nodule/goiter: TSH Date Value 06/17/2021 0.971 mIU/L 12/08/2017 0.559 uU/mL 07/13/2013 0.980 uU/mL ) GERD: controlled for the most part, except when eats late at night Mood: stable but feeling fatigued. Notes previously on bupropion, currently on Effexor 150 mg daily, did not titrate upward, started on this dose. Notes very effective for her mood. Notes getting 5 to 6 hours of sleep per night. Thinking about interior design in her home, mind is busy at bedtime, trouble falling asleep. Review of Systems Constitutional: Negative. Objective BP 112/68 Pulse 72 Resp 16 Wt 87.1 kg (192 lb) LMP 07/28/2015 (Exact Date) BMI 31.46 kg/m Physical Exam Vitals and nursing note reviewed. Constitutional: Appearance: Normal appearance. HENT: Head: Normocephalic and atraumatic. Eyes: Conjunctiva/sclera: Conjunctivae normal. Neck: Thyroid: No thyromegaly. Vascular: Normal carotid pulses. No JVD. Cardiovascular: Rate and Rhythm: Normal rate and regular rhythm. Pulses: Carotid pulses are 2+ on the right side and 2+ on the left side. Radial pulses are 2+ on the right side and 2+ on the left side. Pulmonary: Effort: Pulmonary effort is normal. Breath sounds: Normal breath sounds. Abdominal: General: Bowel sounds are normal. Palpations: Abdomen is soft. Musculoskeletal: Right lower leg: No edema. Left lower leg: No edema. Skin: General: Skin is warm and dry. Neurological: General: No focal deficit present. Mental Status: She is alert and oriented to person, place, and time. ALLERGIES Allergen Reactions Zometa [Zoledronic * Other: See Comments Joint tenderness & soreness, difficulty breathing due to severe pain Medication calcium carbonate/vitamin D3 (CALTRATE 600 + D ORAL) meloxicam (MOBIC) 15 mg tablet Take 1 tablet by mouth once daily. venlafaxine ER (EFFEXOR XR) 150 mg 24 hr capsule TAKE 1 CAPSULE BY MOUTH ONCE DAILY exemestane (AROMASIN) 25 mg tablet TAKE 1 TABLET ONCE DAILY cyclobenzaprine (FLEXERIL) 10 mg tablet Take 0.5-1 tablets by mouth three times daily as needed formuscle spasm. omeprazole (PRILOSEC) 20 mg capsule Take 20 mg by mouth once daily. MULTI-VITAMIN ORAL Take by mouth once daily. fluticasone (FLONASE) 50 mcg/actuation nasal spray Use 2 Sprays in each nostril once daily. Rinse mouth after use. 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 Obese thyroid nodule Social History Tobacco Use Smoking status: Former Packs/day: 1.00 Years: 32.00 Pack years: 32.00 Types: Cigarettes Start date: 08/04/1983 Quit date: 08/07/2015 Years since quittin.8 Smokeless tobacco: Never Vaping Use Vaping Use: Never used Substance Use Topics Alcohol use: Yes Comment: Not weekly Drug use: No Depression screening tool completed and reviewed. Based on score and interview, patient is already diagnosed with depression. Screening tool discussed with patient, and I recommended no further intervention at this time. ASSESSMENT/PLAN: 1. Gastroesophageal reflux disease, unspecified whether esophagitis present - ICD9: 530.81, ICD10: K21.9 (primary diagnosis) Stable unless eating late at night Continue current treatment unchanged, continue to monitor. Endorse lifestyle measures. 2. Encounter for immunization - ICD9: V03.89, ICD10: Z23 Will check insurance - ZOSTER VACCINE, RECOMBINANT (SHINGRIX) - TDAP VACCINE, AGE 7+ YR (ADACEL, BOOSTRIX) 3. Fatigue, unspecified type - ICD9: 780.79, ICD10: R53.83 - DEPRESSION SCREENING/ASSESSMENT - CBC + DIFF - COMP METABOLIC PANEL 4. Thyroid nodule - ICD9: 241.0, ICD10: E04.1 5. Nontoxic multinodular goiter - ICD9: 241.1, ICD10: E04.2 - TSH BLD - US THYROID/PARATHYROID 6. Invasive ductal carcinoma of breast, right (HCC) - ICD9: 174.9, ICD10: C50.911 Followed by hematology oncology, Dr Zavaleta 7. Mood disorder (HCC) - ICD9: 296.90, ICD10: F39 Mood is stable on current medication. No current counseling, refer if so desires. If labs normal and getting enough sleep and endorse decreasing dose of Effexor to see if this helpswith fatigue 6 mo follow up Akira Pierre MD labs today Celeste Salcedo APRN.TRACK PRODUCTION ENGINEER Medical Decision Making: Problems: Moderate: 1+ chronic illnesses with change and 2+ stable chronic illnesses Data: Unique test(s) ordered: 3+ Risk: Low: Low risk from testing/treatment Moderate: Drug management Medical Decision Making Level: 4 - Moderate documented in this encounterBrec[facility]04-03-[facility]23 Miscellaneous Notes* Telephone Encounter - Nima Hinojosa Ma - 06/09/2022 12:57 PM EDT RODRIGO: 12/20/2021 Last refill: 11/15/2021 QTY: 90 Refills: 1 documented in this encounterBrecksville [facility]03-29-2023 Miscellaneous Notes* Telephone Encounter - Pilar Davidson LPN - 06/04/2022 12:10 PM EDT Patient has been identified by name and date of : Yes Requested Prescriptions Pending Prescriptions Disp Refills venlafaxine ER (EFFEXOR XR) 150 mg 24 hr capsule [Pharmacy Med Name: VENLAFAXINE HCL ER 150 MG CAP]30 capsule 2 Sig: TAKE 1 CAPSULE BY MOUTH ONCE DAILY RX INSTRUCTIONS: Patient aware RX will be sent to pharmacy. No need to notify patient. Pilar Davidson LPN documented in this encounterBrecksville [facility]03-07-2023 Miscellaneous Notes* Telephone Encounter - Yenny Posadas RN - 05/13/2022 3:03 PM EST Left patient a voicemail in regards to patient QOL portal. Yenny Posadas RN documented in this encounterBrecksville [facility]03-07-[facility]23 History of Present illness Narrative* Yenny Posadas RN - 05/13/2022 12:16 PM EST IRB# [id number] Title: NRG [id number]: A Phase III Clinical Trial Evaluating De- Escalation of Breast Radiation for Conservative Treatment of Stage I, Hormone Sensitive, Her2-Negative, Oncotype Recurrence Score <= 18 Breast Cancer. Consent Date: 11/18/2021 Randomization Date: 11/18/2021 Treatment ARM: HT - TA2 Patient here today for 6 month post randomization visit. Patient expressed baseline issues - added,as well as, new symptoms. Patients skin has become more dry and itchy - wants her to stop using dial soap and add Cera Vae lotion daily. Patient feeling more depressed and anxious since starting Aromasin - switch patient to Effexor from Wellbutrin. Otherwise, patient feels they are doing very well. Patient states compliance with endocrine therapy. No missed doses. Patient ECOG 0/ KPS 100 by Gladis Byrd MD 11/15/2021 QOL: Completed - Scanned Labs: Not due until 12 months Vitals: May 13, 2022 Baseline Weight 89.3 kg (196 lb 12.8 oz) Weight 89.4 kg (197 lb) 0.11% Increase BSA 0 BMI 0 Temp 36.9 C (98.4 F) Pulse 75 Resp 16 Pulse OX 96 BP 128/77 Current medications reviewed with patient as reported below: Current Outpatient Medications on File Prior to Visit Medication Sig Start/Stop Use [START ON 11/25/2021] exemestane (AROMASIN) 25 mg tablet Take 1 tablet by mouth once daily. Start:11/25/2021 endocrine therapy cyclobenzaprine (FLEXERIL) 10 mg tablet Take 0.5-1 tablets by mouth three times daily as needed formuscle spasm. Start: 11/15/2021 Stopped:12/07/2021 Start:03/09/2022 Muscle relaxer meloxicam (MOBIC) 15 mg tablet Take 1 tablet by mouth once daily. Start: 07/23/2021 Stopped:09/06/2021 Start:03/09/2022 Pain buPROPion SR (WELLBUTRIN SR) 150 mg 12 hr tablet Take 1 tablet by mouth twice daily. Start:07/07/2014 Stop:05/13/2022 Depression and Smoking Cessation omeprazole (PRILOSEC) 20 mg capsule Take 20 mg by mouth once daily. Start:2019 GERD MULTI-VITAMIN ORAL Take by mouth once daily. Start: >15 years Supplement fluticasone (FLONASE) 50 mcg/actuation nasal spray Use 2 Sprays in each nostril once daily. Rinse mouth after use. Start: 07/12/2013 Allergies Vanalafexine (EFFEXOR XR) 150 mg Take by mouth once daily. Start:05/14/2022 Depression Citracal with vitamin D Take by mouth once daily. Start:02/13/2022 Supplement No current facility-administered medications on file prior to visit. Baseline Toxicities per CTCAE v. 5: All predate therapy, are chronic conditions and will not be actively followed unless they worsen during the clinical trial. Pain; Other; bilateral knees: Grade 1 Start date:PRIOR TO STUDY Unrelated to study drug - Resolved:No Treatment: Meloxicam Outcome: Continue to monitor Action Required: Not at this time Dry Mouth Grade 1 Start date:PRIOR TO STUDY - Unrelated to study drug - Resolved: No Treatment: No Outcome: Continue to monitor Action Required: Not at this time Toxicities per CTCAE v. 5 Hypertension Grade 1 Start date:02/12/2022 Unrelated to study drug - Resolved: No Treatment: No Outcome: Continue to monitor Action Required: Not at this time Hot Flashes Grade 1 Start date:02/12/2022 Related to study drug - Resolved: No Treatment: No Outcome: Continue to monitor Action Required: Not at this time Dry Eye Grade 1 Start date:02/12/2022 Stop: 05/13/2022 Unrelated to study drug - Resolved: No Treatment: No Outcome: RESOLVED Action Required: No. Depression Grade 2 Start date:05/13/2022 Likely related to study drug Treatment: Effexor Outcome: Continue monitoring Action Required: No. Resolved: No Anxiety Grade 1 Start date:05/13/2022 Likely related to study drug Treatment: Effexor Outcome: Continue monitoring Action Required: No.Resolved: No Dry Skin Grade 1 Start date:12/25/2021 Likely related to study drug Treatment: Cera Vae and stop dial soap Outcome: Continue monitoring Action Required: No. Resolved: No Edema Limbs; Right Arm Grade 1 Start date:05/06/2022 Related to Zometa Treatment: No. Outcome: Continue monitoring Action Required: No.Resolved: No Patient meets all Criteria for Study Participation: Yes Patient knows to RTC in 3 months for follow-up for med changes. Patient knows to call in the interim for any questions or concerns. Patient has contact information for Yenny Posadas Research Nurse and Dr. Byrd and , along with the 24 hour On-Call number for the On-Call Oncology Fellow ([phone]). DANA Bond, RN Clinical Research Nurse [phone] documented in this encounterBrecksville [facility]03-07-[facility] History of Present illness Narrative* Nahun Zavaleta, DO - 05/13/2022 10:43 AM EST Oncologic problem(s): 1) pT1b pN0(sn) M0 ER/AR positive, HER2 negative stage IA infiltrating ductal carcinoma of the right breast. HPI: The patient is a 56-year-old female with a past medical history significant for GERD, multinodular goiter, seborrheic keratosis, arthralgia of the hands, prior COVID-19 infection, obesity and recent diagnosis of invasive ductal carcinoma of the right breast. She developed an abrasion of the right upper breast along where a new bra strap clasp had rubbed it. She was evaluated by Dr. Johnson who noted an approximate 6 to 7 x 5 cm area of dense induration/erythema of the right breast upper chest wall. It felt fibrous without fluctuance. The skin was excoriated for about 1 to 1-1/2 cm with white fibrous tissue noted. Patient underwent diagnostic mammogram on 07/17/2021. There was a 6 x 5 x 5 mm oval mass with a circumscribed margin in the right breast at 1:00 posterior depth 3 cm from the nipple. It appeared hypoechoic with internal echoes on ultrasound and it correlated with the mammogram findings. There was slight thickening of the single axillary lymph node of 4 mm. Patient underwent an ultrasound-guided core needle biopsy on 08/20/2021. Pathology: Invasive mammary carcinoma, provisional histologic grade 2. ER +91 to 100%, strong staining intensity. AR positive, 81 to 90%, strong staining intensity HER2 negative, 1+ on IHC. Patient underwent a right breast GREGORY Public Relations Supervisor localized lumpectomy, right sentinel lymph node mappingand biopsy on 10/07/2021. Pathology: A. Right axilla, sentinel lymph nodes, excision: -Two lymph nodes, negative for metastatic carcinoma (0/2), (please see comment). B. Right breast, lumpectomy: - Invasive mammary carcinoma with mixed ductal and lobular features, Ephraim grade 2, measuring 7 mm in greatest dimension, (please see comment and synoptic report). 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 Right breast, anterior margin, excision: - Unremarkable breast parenchyma D. Right breast, posterior margin, excision: - Unremarkable breast parenchyma E. Right breast, superior margin, excision: - Unremarkable breast parenchyma F. Right breast, inferior margin, excision: - Unremarkable breast parenchyma G. Right breast, medial margin, excision: - Unremarkable breast parenchyma H. Right breast, lateral margin, excision: - Intraductal papilloma with usual ductal hyperplasia Enrolled in IRB# [id number] Title: NRG [id number]: A Phase III Clinical Trial Evaluating De-Escalation of Breast Radiation for Conservative Treatment of Stage I, Hormone Sensitive, Her2-Negative, Oncotype Recurrence Score <= 18 Breast Cancer. Current therapy: 1) Exemestane Presents for ongoing oncologic management. Interim history: Tolerating exemestane well. Had severe bone pain from first Zometa infusion. Has hot flashes, not more frequent, but more intense. Still don't wake her. More depressed. I don't enjoy anything. Wellbutrin for several years. Originally took to quit smoking. Dry skin arms and upper chest. Has h/o disc disease L5/S1. Chronic. Only hurts if twists her back a certain way. No pain currently. 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 PMH, medications and allergies personally reviewed by me today. Any changes documented in appropriate section. Family history: Reviewed family history as outlined in med genetics consultation. ROS: Constitutional: Denies episodes of fever and night sweats. Not significantly fatigued. Normal appetite. Neuro: Denies [place], vertigo, dizziness and imbalance. Denies symptoms of neuropathy. HEENT: No recent change in voice, vision or hearing. Resp: Denies cough, wheeze and hemoptysis. Denies shortness of breath at rest. Denies KISER. CVS: Denies exertional chest pain, PND, orthopnea and LE edema. GI: Denies dysgeusia. Denies symptoms of stomatitis. Denies dysphagia and odynophagia. Denies reflux, n/v, change in bowel habits and abdominal pain. : Denies dysuria or gross hematuria. No symptoms of bladder outlet obstruction. Endo: Denies polyuria and polydipsia. Denies heat and cold intolerance. Musculoskeletal: See above. Derm: See above. Heme: Denies unusual bleeding and unexplained bruising. Psych: See above. PHYSICAL EXAM: Vitals: Blood pressure 128/77, pulse 75, temperature 36.9 C (98.4 F), temperature source Temporal, weight 89.4 kg (197 lb), last menstrual period 07/28/2015. Well-appearing and in no acute distress. EYES: Sclerae are anicteric bilaterally. LYMPHATIC: There is no palpable cervical, supraclavicular or axillary adenopathy. RESPIRATORY: Inspiratory breath sounds are of normal intensity in all santacruz. No rales, wheezes or rhonchi. CARDIOVASCULAR: Rhythm is regular. BREAST: Nurse acted as public improvement inspector. Right breast and axillary incision well- healed. No concerning mass or nodule bilaterally. ABDOMEN: The abdomen is nondistended. No organomegaly. No tenderness. Extremities: No swelling or edema. SKIN: Fine milia-type rash arms and upper anterior chest. NEUROLOGIC: mowing machine operator II-XII are grossly intact. No focal motor weakness. MUSCULOSKELETAL: No muscle wasting. ASSESSMENT/PLAN: (C50.211, Z17.0) Malignant neoplasm of 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, estrogen receptor positive (HCC) (primary encounter diagnosis) (Z00.6) Examination of participant in clinical trial Assessment: -The patient is a 56-year-old postmenopausal female (no menses in 3 years) who was diagnosed with apT1b pN0 M0 ER/AR positive, HER2 negative stage IA mixed invasive lobular and ductal carcinoma of the right breast. -Oncotype DX recurrence score 10 indicating 9-year risk of distant recurrence with the use of tamoxifen or AI at 3% with 95/% confidence interval 3 to 4%. -Enrolled in IRB# [id number] Title: NRG BR007: A Phase III Clinical Trial Evaluating De-Escalation of Breast Radiation for Conservative Treatment of Stage I, Hormone Sensitive, Her2-Negative, Oncotype Recurrence Score <= 18 Breast Cancer. -Was randomized to not receive radiation. -Custom cancer panel through [employer] negative for all tested mutations. -On therapy with exemestane. She is tolerating it well with the exception of mild hot flashes whichare manageable. Plan: -No further Zometa. -She is scheduled in February for follow-up mammogram. -Continue exemestane. -Continue Citracal with D (or store brand generic) once daily. -Rotate from Wellbutrin to Effexor 150 mg SR daily. -No antibacterial soaps. -Cerevae 2-3 times daily. (R21) Rash Assessment: -Grade 1. Possibly due to exemestane. -Appears to have more dry skin. -Discussed recommendations below. Plan: -Do not use antibacterial soaps. -CeraVe a moisturizing lotion 2-3 times a day. (F34.1) Persistent depressive disorder Assessment: -Patient has longstanding history of depression. Recently exacerbated which may be from hormonal therapy. -Discussed rotating to venlafaxine as it may help with hot flashes as well. Plan: -Rx venlafaxine 150 mg sustained release. -Discontinue Wellbutrin. Portions of this documentation were copied and pasted from previous office visit notes in order to provide a cohesive continuity of the history. The note has been reviewed and edited and updated as necessary. I spent a total of 35 minutes on the date of the service which included preparing to see the patient, [id number] patient care, completing clinical documentation, obtaining and/or reviewing separately obtained history, performing a medically appropriate examination, and counseling and educating the patient/family/caregiver. Nahun Zavaleta DO documented in this encounterBrecksville [facility]03-01-2023 Miscellaneous Notes* Telephone Encounter - Fabiola Shields RN - 05/07/2022 3:01 PM EST EMERGENCY ROOM CALL BACK Today's date: May 07, 2022 Patient identified by name and date of . YES Primary Cancer Diagnosis: Breast Reason for Emergency Room Visit: Severe rib/back pain Time of day presented to Emergency Room 12pm If Thu-Thursday during business hours: Did you contact your Pit Manager/Provider? Yes, told to present to emergency department Patient with any new symptom issues: No Psychosocial Risk Factors: None FOLLOW UP Patient reminded of her follow-up appointment with [facility] provider, Dr Zavaleta on 05/13/22: Yes Next Pit Manager outreach with patient scheduled? call as needed Discussed Patient given Percocet Rx, she has taken 2 so far. She states pain is better but still feels stiff and sore Denies any needs at this time. Instructed to keep us updated and call with any new or worsening symptoms. PATIENT EDUCATION/REINFORCEMENT Patient verbalizes understanding of when to seek Medical Attention? YES Patient verbalizes understanding of after hours and weekend phone number? YES Patient verbalizes understanding of next outreach appointment? YES Fabiola Shields RN documented in this encounterBrecksville [facility]02-28-[address] Flanagan [facility] May 06, 2022 2:51pm Note Date/Time May 06, 2022 12:41pm [facility] Medical Records Department [address] [place] [address] Emergency Department Summary 05/06/22 MR#: [id number] Acct: [id number] Name: REBECA WILSON Rep #:[id number] : 1965 56 From: Bandar Flanagan MD PCP: Akira Pierre MD Status:REG ER Location: ED HPI History of Present Illness Chief Complaint: Chest Pain Informant: patient and spouse/S.O. Onset/Context/Timing Onset: Today (0200, 10 hrs ago) Activity at onset: activity on onset and sleep Timing: Continuous Quality: Positive for Pain (sore) Location: - (Throughout ribs, front and back) Current Severity: Moderate Maximum Severity: Severe Worsened By: Movement of Arm, Movement of Torso and Breathing Relieved By: Rest and Remaining Still Associated Symptoms: Positive for Nausea and Dyspnea (A little because it hurts to breathe and is very painful when she moves); Negative for Vomiting, Cough, Fever, Lightheadedness or Palpitations Narrative Narrative: Patient recently had breast cancer that was localized, she had a lumpectomy, sheis in a study and was just given her first infusion of Zometa yesterday afternoon. She woke up this morning and pain all over but mostly in the ribs, front and back. It hurts to breathe, this is making her feel little short of breath. Patient has never had a DVT or PE before, she has no pain or swelling in either one of her legs right now unilaterally or asymmetrically, and is not anticoagulated for any reason. I did speak with her oncologist Dr. Zavaleta concerning all of this who is an additional independent historian. [facility] Medical History (Updated 05/06/22 @ 14:[address] Bandar Flanagan MD) Breast cancer Home Medications omeprazole 20 mg tablet,delayed release 20 mg PO DAILY ##14 03/11/16 [Rx Last Taken Unknown] ondansetron 4 mg disintegrating tablet 4 - 8 mg PO Q8H PRN PRN Nausea #12 tabs 03/11/16 [Rx Last Taken Unknown] bupropion HCl 150 mg tablet,12 hr sustained-release 150 mg PO BID 05/06/22 [History Last Taken Unknown] cyclobenzaprine 10 mg tablet 10 mg PO TID PRN Spasms 05/06/22 [History Last Taken Unknown] exemestane 25 mg tablet (Aromasin) 25 mg PO DAILY 05/06/22 [History Last Taken Unknown] fluticasone propionate 50 mcg/actuation nasal spray,suspension 2 spray intranasal DAILY 05/06/22 [History Last Taken Unknown] meloxicam 15 mg tablet 15 mg PO DAILY 05/06/22 [History Last Taken Unknown] oxycodone-acetaminophen 5 mg-325 mg tablet 1 tab PO Q6H PRN PRN Pain 4 days #16 TABLETS 05/06/22 [Rx Last Taken Unknown] Allergy/AdvReac Type Severity Reaction Status Date / Time No Known Allergies Allergy Verified 05/06/22 11:52 Social History Smoking Status: Former smoker ROS ROS ED Constitutional Constitutional ED: Denies chills or fever(s) Eyes Eyes: Denies change in vision or diplopia ENT ENT ED: Denies rhinorrhea or sore throat Cardiovascular Cardiovascular: Reports as per HPI and chest pain; Denies palpitations Respiratory/Chest Respiratory/Chest: Reports as per HPI and dyspnea; Denies cough Gastrointestinal Gastrointestinal: Reports nausea; Denies abdominal pain, diarrhea or vomiting Genitourinary Genitourinary ED: Denies dysuria or hematuria Musculoskeletal Musculoskeletal: Reports back pain and extremity pain; Denies neck pain Integumentary Denies abscess or rash Neurologic Neurologic: Denies headache(s), paresthesias or weakness Psychiatric Psychiatric: Denies anxiety or suicidal thoughts EXAM Physical Exam Const Vital Signs: 05/06/22 11:51 05/06/22 12:18 05/06/22 12:29 Temperature 97.8 F Temperature Source Temporal Pulse Rate 104 H Respiratory Rate 18 Respiratory Effort Normal Non-Labored Respiratory Pattern Normal Blood Pressure 122/82 H Blood Pressure Mean 95 Pulse Ox 98 97 Oxygen Delivery Method Room Air Room Air 05/06/22 13:00 05/06/22 14:00 Temperature Temperature Source Pulse Rate 101 H 99 Respiratory Rate 20 H 18 Respiratory Effort Respiratory Pattern Blood Pressure 112/76 116/74 Blood Pressure Mean 88 88 Pulse Ox 98 100 Oxygen Delivery Method Room Air Room Air Positive well nourished and well developed General Appearance ED: well developed and NAD HEENT Reports moist mucous membranes normocephalic and atraumatic Eyes PERRL and EOMs intact bilaterally Neck full ROM and supple Chest Wall inspection of chest normal Chest Narrative: Diffuse chest wall tenderness all the way around her trunk without any crepitance, step-off, or unequal breath sounds. Patient is in more pain to move. Resp normal respiratory effort and clear to auscultation bilaterally Cardio regular rate, regular rhythm and no murmurs Rate: other Other Details: Mild tachycardia GI non-tender and non-distended Auscultation: normoactive bowel sounds Palpation: soft Back/Spine no CVA tenderness General Back: other FROM Extremity normal to inspection and no calf tenderness General Extremety ED: Negative for edema, pulses abnormal or tenderness General Extremity: Negative for edema or pulses abnormal Neuro oriented x3, CN's II-XII intact bilaterally and no sensory deficits noted Sensorium / Orientation: awake and alert Motor Exam: strength 5/5 throughout Skin no rashes or lesions noted and no wounds MDM MDM MDM Narrative Medical decision making narrative: CT angiography of the chest was obtained since patient has a high Wells score, making D-dimer basically pointless to obtain. My interpretation of the CT agrees with that of the radiologist. Basically negative for pulmonary embolus, the main reason she was sent for this test. While we were awaiting testing results she was treated with IV fluids, Zofran, morphine. She did feel better. I discussed with her oncologist Dr. Zavaleta. I am happy to prescribe her some analgesics to use as needed for this pain which I now suspect is related to the dose of Zometa she recently had yesterday, and have her follow-up as an outpatient. She is comfortable with that plan. Wells' Criteria for Pulmonary Embolism from [email or web address] on 05/06/2022 All calculations should be rechecked by clinician prior to use RESULT SUMMARY: 2.5 points Moderate risk group: 16.2% chance of PE in an ED population. Another study assigned scores <=4 as ?PE Unlikely? and had a 3% incidence of PE. INPUTS: Clinical signs and symptoms of DVT ?> 0 = No PE is #1 diagnosis OR equally likely ?> 0 = No Heart rate > 100 ?> 1.5 = Yes Immobilization at least 3 days OR surgery in the previous 4 weeks ?> 0 = No Previous, objectively diagnosed PE or DVT ?> 0 = No Hemoptysis ?> 0 = No Malignancy w/ treatment within 6 months or palliative ?> 1 = Yes Lab Data Attestation: I reviewed the patient's lab results. Labs: Laboratory Results - last 24 hr 05/06/22 05/06/22 13:15 13:15 WBC 17.5 H RBC 3.78 L Hgb 11.2 L Hct 35.0 L MCV 92.6 MCH 29.6 MCHC 32.0 RDW Std Deviation 43.4 RDW Coeff of Stevie 12.8 Plt Count 369 MPV 9.0 Immature Gran % (Auto) 0.600 Neut % (Auto) 95.6 H Lymph % (Auto) 1.9 L [place] % (Auto) 1.8 Eos % (Auto) 0.0 Baso % (Auto) 0.1 Absolute Neuts (auto) 16.7 H Absolute Lymphs (auto) 0.34 L Nucleated RBC % 0 Differential Comment SCANNED Sodium 142 Potassium 3.6 Chloride 109 H Carbon Dioxide 25.0 Anion Gap 8 BUN 19 H Creatinine 0.90 Estim Creat Clear Calc 65.34 Est GFR (MDRD) Af Amer 83 Est GFR (MDRD) Non-Af 69 BUN/Creatinine Ratio 21.1 H Glucose 129 H Calcium 8.3 L Troponin I High Sens 4 Radiography Diagnostic Testing: Clinical Impression(s) from Imaging Studies Chest CTA 05/06/22 12:29 IMPRESSION: Mild degree of bibasilar scarring. 2.8 cm x 2.4 cm mass in the left adrenal gland. Electronically Signed: Piotr Sexton MD at 14:36 EST , Rhythm Strip Rhythm Strip: Sinus Rhythm Rate: 95 Ectopy: None EKG Initial EKG: Attestation: I personally reviewed and interpreted this EKG as follows: Interpretation: Sinus Rhythm and No Acute Injury Pattern Discharge Plan Triage Chief Complaint: Chest Pain ED Provider: Bandar Flanagan Dx/Rx/DC Orders Clinical Impression: Medication side effect, Diffuse pain, Chest pain, Back pain Instructions: Zometa Injection 4 mg/5 mL, Taking Opioid Medicines Prescriptions: New oxycodone-acetaminophen [oxycodone-acetaminophen] 5-325 mg tablet 1 tab PO Q6H PRN PRN (Reason: Pain) 4 Days Qty: 16 0RF No Action omeprazole 20 MG tablet,delayed release (DR/EC) 20 mg PO DAILY Qty: 14 0RF ondansetron 4 MG tablet 4 - 8 mg PO Q8H PRN PRN (Reason: Nausea) Qty: 12 0RF cyclobenzaprine 10 mg tablet 10 mg PO TID PRN (Reason: Spasms) Label Comments: TAKE 1/2 TO 1 TABLET BY MOUTH 3 TIMES A DAY NEEDED FOR MUSCLE SPASMS Rx Instructions: 0.5-1 TAB bupropion HCl 150 mg tablet sustained-release 12 hr 150 mg PO BID Label Comments: TAKE 1 TABLET BY MOUTH TWICE A DAY meloxicam 15 mg tablet 15 mg PO DAILY Label Comments: TAKE 1 TABLET BY MOUTH EVERY DAY exemestane [Aromasin] 25 mg Tablet 25 mg PO DAILY fluticasone propionate [Flonase] 50 mcg/actuation [place],Suspension 2 spray INTRANASAL DAILY Primary Care Provider: Akira Pierre Referrals: Nahun Zavaleta DO [Med Staff - Active Staff] - (as directed, call office for info) Akira Pierre MD [Primary Care Provider] - Disposition Disposition: Home, Self Care What to do if you have Problems For any increased pain, shortness of breath, bleeding, nausea or vomiting, chestpain, or any unexpected problems, contact your Primary Care Provider. Call [facility] ([phone]) or report to the closest Emergency Room. Call 911 if necessary. 05/06/22 1451 <Electronically signed by Bandar Flanagan MD> Cosigner Signature (if applicable): CC: Dr. Nahun Zavaleta DO; Akira Pierre MD ~ Signed [facility] Work Phone: [phone] Miscellaneous Notes* Telephone Encounter - Fabiola Shields RN - 05/06/2022 11:20 AM EST Call to patient. She will go to [place] ED at this time. This nurse will fax notes to ED. Isa Shields RN * Telephone Encounter - Nahun Zavaleta DO - 05/06/2022 11:17 AM EST May be from the Zometa but typically pain does not occur just in the ribs and the pain being exacerbated with deep breathing concerns me for possible pulmonary embolism. Please advise her to go to the ED now for evaluation. Nahun Zavaleta DO * Telephone Encounter - Fabiola Shields RN - 05/06/2022 10:08 AM EST Patient received 1st Zometa yesterday. States she got up to go the bathroom at 2am and noted pain in her ribs, back the most. Somewhat in her arms, neck. States it hurts to take a deep breath and with movement. She has tried Tylenol ES x2, did not help. She took a Flexeril at 830am, has not helped.She is lying on her back at time of phone call and rates pain 15/10 and increases with movement. She will try and relax in a new position and be ok for 30 min and then pain increases. She needs to have her help her move or get up because it hurts too much to do on her own. She can not stand straight up as it increases pain in ribs and back. Agrees that she has a slight headache but nothing compared to the other pain She states her legs are restless (had this issues prior but worse this am) and they are weak. States they are shaky with standing/ambulating. Denies fever/chills, any numbness or tingling. Denies that ribs or back are tender to touch. Just hurts with movement of any kind. Worse with a deep breath. Denies shortness of breath but states pain takes her breath away. Denies nausea except with movement because of the pain. She checked her BP this am: 108/72 She is aware that I will discuss with Dr. Zavaleta and call back with further instructions. Isa Shields RN documented in this encounterBrecksville [facility] History of Present illness Narrative* Yareli Hartley RT(R) - 04/25/2022 8:00 AM EST Radiology Service Progress Note PATIENT NAME: Rebeca Wilson DATE OF SERVICE: April 25, 2022 TIME: 8:22 AM PATIENT IDENTITY VERIFICATION COMPLETED USING TWO (2) IDENTIFIERS: Name and Date of confirmedby patient verbally. FALL SCREENING: Has the patient had 2 falls in the last year or 1 fall with injury or currently using an Ambulatory Assistive Device (Walker, Cane, Wheelchair, Crutches, etc.)? No PATIENT GENDER DATA: Female. status: : No status: NO. 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 4 mm but normal - no need for bx, per discussion with radiology. ER+AR+HER2- [id number] HISTORY: Patient was was last seen for a post operative appointment on 10/15/2021. In the interim, she followed up with Dr. Suarez (Medical Oncologist) to discuss adjuvant systemic therapy. Oncotype DX was ordered and the recurrence score was 10. No chemotherapy indicated. Exemestane was recommended for five years. She followed-up with Dr. Jose E Bettencourt (Radiation Oncologist) who discussed partial verses whole breast radiation treamtents. Patient wished to have treatments closer to her home and met with Dr. Prashant Byrd. He discussed an ongoing trial investigation ([facility] BR007 trial) investigating de- escalation of breast radiation therapy. In which, the standard arm receives radiation treatment and hormone therapy and thestudy arm will receive hormone therapy alone without radiation treatment. Patient was interested in participating in the trial. She was randomized not to receive radiation treatments. In the interim, she transferred her care to (Medical Oncologist) who agreed with endocrinetherapy and recommended Zometa every 6 months for up to 3 years. Patient has met with Thu Cisneros (O.T.) and reports she is doing well. Ms Wilson underwent a Bilateral screening mammogram on 04/21/2022. A right breast indeterminate lymph node was reported and additional diagnostic imaging was recommended. Genetic testing results reported on 11/22/2021 Custom Cancer Panel through [employer] was negative for a pathogenic variant. ROS: HEENT: Denies vision changes or headaches BREAST: Denies palpating any new breast masses, no breast pain, no skin changes, no nipple discharge ABD: Denies any abdominal pain or new changes in bowel habits MUSCULOSKELETAL: Denies any bone, joint or muscle pain IMAGING: BILATERAL DIGITAL SCREENING MAMMOGRAM TOMOSYNTHESIS WITH CAD: 04/21/2022 HISTORY: Screening Mammogram, Encounter For /Screening Mammogram with [facility] - patient reports NO breast symptoms /priors available for comparison/first mammogram post lumpectomy 10/07/21. RESULT: TECHNIQUE: The study was acquired using full field digital technology and interpreted from soft copy. Digital Breast Tomosynthesis (DBT) images were obtained and used to assist in the interpretation of this examination. Current study was also evaluated with a Computer Aided Detection (CAD). Comparison is made to exams dated: 10/02/2021 mammogram - [facility], 08/20/2021 mammogram - [facility], 07/17/2021 mammogram, and 10/16/2020 mammogram - [facility]. The tissue of both breasts is heterogeneously dense. This may lower the sensitivity of mammography. There are benign post operative findings in the right breast. There is a lymph node in the right breast posterior depth superior region seen on the mediolateral oblique view only. No other significant masses, calcifications, or other findings are seen in either breast IMPRESSION: INCOMPLETE: NEEDS ADDITIONAL IMAGING EVALUATION The lymph node in the right breast is indeterminate. Additional views with possible ultrasound are recommended. Tram Miller M.D. EXAMINATION: GEN alert and orientated, well nourished, calm Regional Lymph Nodes There is no concerning supraclavicular, infraclavicular or cervical lymphadenopathy. BREASTS: The patient was examined in the upright and supine position. RIGHT breast soft, no dominant masses, nipple everted, no discharge, no skin changes, juan carlos-areolar incision is well healed. 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 4 mm but normal - no need for bx, per discussion with radiology. ER+AR+HER2- [id number] Genetic testing was negative (11/2021) LDEX Score 1.4 RIGHT arm (09/26/2021) LDEX Score 1.1 RIGHT arm (today) ([facility] BR007 trial participate)- randomized not to receive radiation treatments. RIGHT abnormal mammogram PLAN: RIGHT sided diagnostic imaging is scheduled for 04/25/2022. LDEX results reviewed and negative for subclinical evidence of lymphedema. Instructed on how to perform a monthly SBE Ms. Wilson will follow-up with Dr. Zavaleta (Medical Oncologist) as scheduled, 05/13/2022. Patient will follow up in six months, sooner if indicated by imaging findings.. She has our names and numbers to stay in touch if she has any questions, concerns or problems in the interim. I spent a total of 25 minutes on the date of the service which included preparing to see the patient, [id number] patient care, completing clinical documentation, obtaining and/or reviewing separately obtained history, performing a medically appropriate examination, counseling and educating the pat ient/family/caregiver, and ordering medications, tests, or procedures. Dana Flores PA-C cc: Akira Pierre [address] [place] [address] documented in this encounterBrecksville [facility]02-15-[facility] Nurse Note* Maria De Jesus Verma LPN - 04/23/2022 9:44 AM EST Follow up Last mammogram on: 04/21/22 bilateral Results: see report Is the patient active on MyChart Yes Electronically Signed By: Maria De Jesus Verma LPN In Department: [facility] REVIEW OF PATIENT HISTORY: OB History T0 L3 SAB1 IAB1 Ectopic0 Multiple0 Live Births3 Comment: Menarche: 13; Age at 1st : 19; Post menopausal FAMILY HISTORY Problem Relation Age of Onset Hypertension Mother Allergies Mother Cancer Father 57 lung-smoker COPD Sister None Sister Breast Cancer Paternal Grandmother 79 Cancer Paternal Grandmother 89 unknown abdominal cancer Colon Cancer Paternal Grandfather 66 Cancer Paternal Aunt 63 lung - smoker Breast Cancer Paternal Aunt 68 Renal Cell Cancer Paternal Uncle 65 Cancer Paternal Uncle 72 adrenal Breast Cancer Other 2 paternal great aunts, unknown ages Breast Cancer Paternal great-grandmother 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 Obese thyroid nodule PAST SURGICAL HISTORY Procedure Laterality Date BIOPSY THYROID 08/2013 COLONOSCOPY FLX DX W/COLLJ SPEC WHEN PFRMD 11/28/2016 COLONOSCOPY FLX DX W/COLLJ SPEC WHEN PFRMD 01/31/2020 TUBAL LIGATION, 1990 Social History Tobacco Use Smoking status: Former Packs/day: 1.00 Years: 32.00 Pack years: 32.00 Types: Cigarettes Start date: 08/04/1983 Quit date: 08/07/2015 Years since quittin.7 Smokeless tobacco: Never Vaping Use Vaping Use: Never used Substance Use Topics Alcohol use: Yes Comment: Not weekly Drug use: No documented in this encounterBrecksville [facility]-13-[facility] History of Present illness Narrative* Cydney Beltran Mammo Tech - 04/21/2022 2:10 PM EST Radiology Service Progress Note PATIENT NAME: Rebeca Wilson DATE OF SERVICE: April 21, 2022 TIME: 2:04 PM PATIENT IDENTITY VERIFICATION COMPLETED USING TWO (2) IDENTIFIERS: Name and Date of confirmedby patient verbally. FALL SCREENING: Has the patient had 2 falls in the last year or 1 fall with injury or currently using an Ambulatory Assistive Device (Walker, Cane, Wheelchair, Crutches, etc.)? No PATIENT GENDER DATA: Female. status: : No status: NO. PATIENT RELEVANT IMPLANT DATA REVIEWED: Not Applicable RADIOLOGY DEPARTMENT: Mammography PERIPHERAL IV DATA: Not applicable SIGNED BY: Amie Domínguez April 21, 2022 2:04 PM documented in this encounterBrecksville [facility]01-16-2023 Miscellaneous Notes* Telephone Encounter - Nils Saenz - 03/24/2022 2:43 PM EST 1st-time treatment report. The patient is currently being seen for a non- oncology regimen. No navigator services are needed at this time. documented in this encounterBrecksville [facility]01-11-2023 Miscellaneous Notes* Telephone Encounter - Adrianne Luis Pss - 03/19/2022 11:15 AM EST I called and spoke to Rebeca and rescheduled her for 6 weeks after her dental work, she confirmed the new date/time 05/05/22 @ 3:30 pm Adrianne Luis Pss * Telephone Encounter - Marguertie Blas LPN - 03/18/2022 5:03 PM EST Patient notified. Aware that tomorrows tx will be cancelled. Aware will need to be rescheduled 6 weeks after her dental work. PSS please reach out to pt to reschedule. Marguerite Blas LPN * Telephone Encounter - Nahun Zavaleta DO - 03/18/2022 4:58 PM EST Okay, best if she waits to start Zometa until 6 weeks after fillings completed. Tomorrow will need to be rescheduled. Nahun Zavaleta DO * Telephone Encounter - Pilar Davidson LPN - 03/18/2022 3:33 PM EST Received dental clearance , exam 03/18/22. Pt. Will need [address] Lombardi Form sent to scanning. Pilar Davidson LPN documented in this encounterBrecksville [facility]12-07-2022 History of Present illness Narrative* Yenny Posadas RN - 02/12/2022 3:58 PM EST IRB# [id number] Title: [facility] BR007: A Phase III Clinical Trial Evaluating De- Escalation of Breast Radiation for Conservative Treatment of Stage I, Hormone Sensitive, Her2-Negative, Oncotype Recurrence Score <= 18 Breast Cancer. Consent Date: 11/18/2021 Randomization Date: 11/18/2021 Treatment ARM: HT - TA2 Patient here today for 3 month post randomization visit. Patient expressed baseline issues - added,as well as, new symptoms. Patient overall doing well. Patient ECOG 0/ KPS 100 by Gladis Byrd MD 11/15/2021 QOL: not due at this time - Due next visit 6 Month Labs: Collected and shipped - please view separate abstract Vitals: 02/12/2022 Baseline Weight 89.3 kg (196 lb 12.8 oz) Weight 90.7 kg (200 lb) 2% Increase BSA 0 BMI 0 Temp 36.5 C (97.7 F) Pulse 69 Resp 15 Pulse OX 95 BP 134/81 Current medications reviewed with patient as reported below: Current Outpatient Medications on File Prior to Visit Medication Sig Start/Stop Use [START ON 11/25/2021] exemestane (AROMASIN) 25 mg tablet Take 1 tablet by mouth once daily. 11/25/2021 patient has not started, but this is the planned treatment for trial endocrine therapy Stopped:12/07/2021 meloxicam (MOBIC) 15 mg tablet Take 1 tablet by mouth once daily. Start: 07/23/2021 Stopped:09/06/2021 Pain buPROPion SR (WELLBUTRIN SR) 150 mg 12 hr tablet Take 1 tablet by mouth twice daily. Start:07/07/2014 Depression and Smoking Cessation omeprazole (PRILOSEC) 20 mg capsule Take 20 mg by mouth once daily. Start:2019 GERD MULTI-VITAMIN ORAL Take by mouth once daily. Start: >15 years Supplement fluticasone (FLONASE) 50 mcg/actuation nasal spray Use 2 Sprays in each nostril once daily. Rinse mouth after use. Start: 07/12/2013 Allergies No current facility-administered medications on file prior to visit. Baseline Toxicities per CTCAE v. 5: All predate therapy, are chronic conditions and will not be actively followed unless they worsen during the clinical trial. Pain; Other; bilateral knees: Grade 1 Start date:PRIOR TO STUDY Unrelated to study drug - Resolved:No Treatment: Meloxicam Outcome: Continue to monitor Action Required: Not at this time Toxicities per CTCAE v. 5 Hypertension Grade 1 Start date:02/12/2022 Unrelated to study drug - Unrelated to study drug - Resolved: No Treatment: No Outcome: Continue to monitor Action Required: Not at this time Hot Flashes Grade 1 Start date:02/12/2022 Unrelated to study drug - Unrelated to study drug - Resolved: No Treatment: No Outcome: Continue to monitor Action Required: Not at this time Dry Eye Grade 1 Start date:02/12/2022 Unrelated to study drug - Unrelated to study drug - Resolved: No Treatment: No Outcome: Continue to monitor Action Required: Not at this time Dry Mouth Grade 1 Start date:02/12/2022 Unrelated to study drug - Unrelated to study drug - Resolved: No Treatment: No Outcome: Continue to monitor Action Required: Not at this time Patient meets all Criteria for Study Participation: Yes Patient knows to RTC in 3 months. Patient knows to call in the interim for any questions or concerns. Patient has contact information for Yenny Posadas Research Nurse and Dr. Byrd and , along with the 24 hour On-Call number for the On-Call Oncology Fellow ([phone]). DANA Bond, RN Clinical Research Nurse [phone] documented in this encounterBrecksville [facility]12-07-2022 History of Present illness Narrative* Nahun Zavaleta, DO - 02/12/2022 3:00 PM EST Oncologic problem(s): 1) pT1b pN0(sn) M0 ER/AR positive, HER2 negative stage IA infiltrating ductal carcinoma of the right breast. HPI: The patient is a 56-year-old female with a past medical history significant for GERD, multinodular goiter, seborrheic keratosis, arthralgia of the hands, prior COVID-19 infection, obesity and recent diagnosis of invasive ductal carcinoma of the right breast. She developed an abrasion of the right upper breast along where a new bra strap clasp had rubbed it. She was evaluated by Dr. Johnson who noted an approximate 6 to 7 x 5 cm area of dense induration/erythema of the right breast upper chest wall. It felt fibrous without fluctuance. The skin was excoriated for about 1 to 1-1/2 cm with white fibrous tissue noted. Patient underwent diagnostic mammogram on 07/17/2021. There was a 6 x 5 x 5 mm oval mass with a circumscribed margin in the right breast at 1:00 posterior depth 3 cm from the nipple. It appeared hypoechoic with internal echoes on ultrasound and it correlated with the mammogram findings. There was slight thickening of the single axillary lymph node of 4 mm. Patient underwent an ultrasound-guided core needle biopsy on 08/20/2021. Pathology: Invasive mammary carcinoma, provisional histologic grade 2. ER +91 to 100%, strong staining intensity. AR positive, 81 to 90%, strong staining intensity HER2 negative, 1+ on IHC. Patient underwent a right breast GREGORY Public Relations Supervisor localized lumpectomy, right sentinel lymph node mappingand biopsy on 10/07/2021. Pathology: A. Right axilla, sentinel lymph nodes, excision: -Two lymph nodes, negative for metastatic carcinoma (0/2), (please see comment). B. Right breast, lumpectomy: - Invasive mammary carcinoma with mixed ductal and lobular features, Ephraim grade 2, measuring 7 mm in greatest dimension, (please see comment and synoptic report). 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 Right breast, anterior margin, excision: - Unremarkable breast parenchyma D. Right breast, posterior margin, excision: - Unremarkable breast parenchyma E. Right breast, superior margin, excision: - Unremarkable breast parenchyma F. Right breast, inferior margin, excision: - Unremarkable breast parenchyma G. Right breast, medial margin, excision: - Unremarkable breast parenchyma H. Right breast, lateral margin, excision: - Intraductal papilloma with usual ductal hyperplasia Enrolled in IRB# [id number] Title: NRG [id number]: A Phase III Clinical Trial Evaluating De-Escalation of Breast Radiation for Conservative Treatment of Stage I, Hormone Sensitive, Her2-Negative, Oncotype Recurrence Score <= 18 Breast Cancer. Current therapy: 1) Exemestane Presents for ongoing oncologic management. Interim history: Tolerating exemestane well. Has hot flashes, but don't wake her. Has h/o disc disease L5/S1. Chronic. Only hurts if twists her back a certain way. 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 Notices bleeds easier when cuts herself. Had nosebleed from right nostril for about 5 min yesterday. Takes meloxicam daily. Wellbutrin for several years. Originally took to quit smoking. PAST SURGICAL HISTORY Procedure Laterality Date BIOPSY THYROID 08/2013 COLONOSCOPY FLX DX W/COLLJ SPEC WHEN PFRMD 11/28/2016 COLONOSCOPY FLX DX W/COLLJ SPEC WHEN PFRMD 01/31/2020 TUBAL LIGATION, 1990 ALLERGIES No Known Allergies Current Outpatient Medications Medication Sig cyclobenzaprine (FLEXERIL) 10 mg tablet Take 0.5-1 tablets by mouth three times daily as needed formuscle spasm. exemestane (AROMASIN) 25 mg tablet Take 1 tablet by mouth once daily. meloxicam (MOBIC) 15 mg tablet Take 1 tablet by mouth once daily. buPROPion SR (WELLBUTRIN SR) 150 mg 12 hr tablet Take 1 tablet by mouth twice daily. omeprazole (PRILOSEC) 20 mg capsule Take 20 mg by mouth once daily. MULTI-VITAMIN ORAL Take by mouth once daily. fluticasone (FLONASE) 50 mcg/actuation nasal spray Use 2 Sprays in each nostril once daily. Rinse mouth after use. No current facility-administered medications for this visit. Social History Tobacco Use Smoking status: Former Packs/day: 1.00 Years: 32.00 Pack years: 32.00 Types: Cigarettes Start date: 08/04/1983 Quit date: 08/07/2015 Years since quittin.5 Smokeless tobacco: Never Vaping Use Vaping Use: Never used Substance Use Topics Alcohol use: Yes Comment: Not weekly Drug use: No Family history: Reviewed family history as outlined in med genetics consultation. ROS: Constitutional: Denies episodes of fever and night sweats. Not significantly fatigued. Normal appetite. Neuro: Denies [place], vertigo, dizziness and imbalance. Denies symptoms of neuropathy. HEENT: No recent change in voice, vision or hearing. Resp: Denies cough, wheeze and hemoptysis. Denies shortness of breath at rest. Denies KISER. CVS: Denies exertional chest pain, PND, orthopnea and LE edema. GI: Denies dysgeusia. Denies symptoms of stomatitis. Denies dysphagia and odynophagia. Denies reflux, n/v, change in bowel habits and abdominal pain. : Denies dysuria or gross hematuria. No symptoms of bladder outlet obstruction. Endo: Denies polyuria and polydipsia. Denies heat and cold intolerance. Musculoskeletal: See above. Derm: Denies rash. Denies jaundice and diffuse pruritis. Heme: Denies unusual bleeding and unexplained bruising. Psych: Normal mood. PHYSICAL EXAM: Vitals: Blood pressure 134/81, pulse 69, temperature 36.5 C (97.7 F), resp. rate 15, weight 90.7 kg(200 lb), last menstrual period 07/28/2015, SpO2 95 %. Well-appearing and in no acute distress. EYES: Sclerae are anicteric bilaterally. LYMPHATIC: There is no palpable cervical, supraclavicular or axillary adenopathy. RESPIRATORY: Inspiratory breath sounds are of normal intensity in all santacruz. No rales, wheezes or rhonchi. Expiratory phase is normal. CARDIOVASCULAR: Rhythm is regular. Normal intensity S1/S2. There is no gallop or murmur. BREAST: Nurse acted as public improvement inspector. There is a well-healed curvilinear incision around the upper portion of the right areola. Second incision in the axilla. Well-healed. Atrophic scar off the breast superior and laterally from previous bra strap injury. No mass or nodule appreciated in either breast. ABDOMEN: The abdomen is nondistended. No organomegaly. No tenderness. Extremities: No swelling or edema. SKIN: No jaundice or rash. No petechiae. NEUROLOGIC: mowing machine operator II-XII are grossly intact. No focal motor weakness. MUSCULOSKELETAL: No muscle wasting. ASSESSMENT/PLAN: (C50.211, Z17.0) Malignant neoplasm of 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, estrogen receptor positive (HCC) (primary encounter diagnosis) (Z00.6) Examination of participant in clinical trial Assessment: -The patient is a 56-year-old postmenopausal female (no menses in 3 years) who was diagnosed with apT1b pN0 M0 ER/AR positive, HER2 negative stage IA mixed invasive lobular and ductal carcinoma of the right breast. -Oncotype DX recurrence score 10 indicating 9-year risk of distant recurrence with the use of tamoxifen or AI at 3% with 95/% confidence interval 3 to 4%. -Enrolled in IRB# [id number] Title: NRG BR007: A Phase III Clinical Trial Evaluating De-Escalation of Breast Radiation for Conservative Treatment of Stage I, Hormone Sensitive, Her2-Negative, Oncotype Recurrence Score <= 18 Breast Cancer. -Was randomized to not receive radiation. -Custom cancer panel through [facility] negative for all tested mutations. -On therapy with exemestane. She is tolerating it well with the exception of mild hot flashes whichare manageable. -Discussed the indication for bisphosphonate therapy. Recommended Zometa every 6 months for up to 3years. Dental clearance form provided. Plan: -She is scheduled in February for follow-up mammogram. -Continue exemestane. -Check vitamin D today. -Recommended starting Citracal with D (or store brand generic) once daily. -Begin every 6 month Zometa around the second week of March once she has had dental clearance. I spent 45 minutes in the visit, with more than 50% of the total [id number] time of the visit in reviewing treatment rationale, plan of care and coordination of care. Nahun Zavaleta DO documented in this encounterBrec[facility] History of Present illness Narrative* Yenny Posadas RN - 02/12/2022 2:47 PM EST IRB# [id number] Title: NRG BR007: A Phase III Clinical Trial Evaluating De- Escalation of Breast Radiation for Conservative Treatment of Stage I, Hormone Sensitive, Her2-Negative, Oncotype Recurrence Score <= 18 Breast Cancer. Consent Date: 11/18/2021 Randomization Date: 11/18/2021 Treatment ARM: HT - TA2 3 Month Post - Registration Optional Labs Collected: 02/13/2022 Drawn at 2:40 PM Shipped to [facility] for joining with Baseline to be shipped to sponsor - Sent Fedex - Emailed and updated Heriberto Juarez at [facility]. Shipped 14 Cryovials: 4 EDTA - PLS 1 EDTA - BC 4 Serum 4 STK- PLS 1 STK - BC Patient to RTC in 3 months. Yenny Posadas RN [phone] documented in this encounterBrecksville [facility]11-22-2022 Miscellaneous Notes* Telephone Encounter - Tram Chan Pss - 01/28/2022 1:12 PM EST Patient scheduled for 03/11/22 for labs and office visit. Patient voiced understanding with no further questions. * Telephone Encounter - Amaya Laureano - 01/28/2022 12:58 PM EST LM for patient to return call to reschedule upcoming appointment with Dr. Zavaleta. Appointment needs to be scheduled on a Thursday/Thursday/Thursday in a 60 minute New Patient Appointment as an Established Complex with labs 30 minutes prior with the Lab Appointment Note reading LABS/CLINICAL TRIAL DRAW/[employer]. Once rescheduled, document and route this note to Yenny Posadas. Amaya Laureano documented in this encounterBrecksville [facility]10-14-[facility] History of Present illness Narrative* Akira Pierre MD - 12/20/2021 9:20 AM EDT This note was created using [facility] Behavior[facility] Health[facility]. Subjective Rebeca Wilson is a 56 year old female. Patient presents with: F/U 6 months SUBJECTIVE: Rebeca Wilson is a 56 year old year old lady here today for 6 month follow up appointment and yearly exam for review of medical conditions. Doing well after treatment for breast cancer. Caught at early stage. Working on healthy lifestyle 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 Obese thyroid nodule Current Outpatient Medications Medication Sig exemestane (AROMASIN) 25 mg tablet Take 1 tablet by mouth once daily. meloxicam (MOBIC) 15 mg tablet Take 1 tablet by mouth once daily. cyclobenzaprine (FLEXERIL) 10 mg tablet Take 0.5-1 tablets by mouth three times daily as needed formuscle spasm. buPROPion SR (WELLBUTRIN SR) 150 mg 12 hr tablet Take 1 tablet by mouth twice daily. omeprazole (PRILOSEC) 20 mg capsule Take 20 mg by mouth once daily. MULTI-VITAMIN ORAL Take by mouth once daily. fluticasone (FLONASE) 50 mcg/actuation nasal spray Use 2 Sprays in each nostril once daily. Rinse mouth after use. No current facility-administered medications for this visit. PAST SURGICAL HISTORY Procedure Laterality Date BIOPSY THYROID 08/2013 COLONOSCOPY FLX DX W/COLLJ SPEC WHEN PFRMD 11/28/2016 COLONOSCOPY FLX DX W/COLLJ SPEC WHEN PFRMD 01/31/2020 TUBAL LIGATION, 1990 FAMILY HISTORY Problem Relation Age of Onset Hypertension Mother Allergies Mother Cancer Father 57 lung-smoker COPD Sister None Sister Breast Cancer Paternal Grandmother 79 Cancer Paternal Grandmother 89 unknown abdominal cancer Colon Cancer Paternal Grandfather 66 Cancer Paternal Aunt 63 lung - smoker Breast Cancer Paternal Aunt 68 Renal Cell Cancer Paternal Uncle 65 Cancer Paternal Uncle 72 adrenal Breast Cancer Other 2 paternal great aunts, unknown ages Breast Cancer Paternal great-grandmother Social History Tobacco Use Smoking status: Former Packs/day: 1.00 Years: 32.00 Pack years: 32.00 Types: Cigarettes Start date: 08/04/1983 Quit date: 08/07/2015 Years since quittin.3 Smokeless tobacco: Never Vaping Use Vaping Use: Never used Substance Use Topics Alcohol use: Yes Comment: Not weekly Drug use: No Review of Systems Objective LMP 07/28/2015 (Exact Date) Physical Exam Vitals reviewed. Constitutional: Appearance: She is well-developed. HENT: Head: Normocephalic and atraumatic. Right Ear: External ear normal. Left Ear: External ear normal. Nose: Nose normal. Eyes: Conjunctiva/sclera: Conjunctivae normal. Neck: Thyroid: No thyromegaly. Cardiovascular: Rate and Rhythm: Normal rate and regular rhythm. Pulses: Normal pulses. Heart sounds: Normal heart sounds. No murmur heard. No friction rub. No gallop. Pulmonary: Effort: Pulmonary effort is normal. Breath sounds: Normal breath sounds. Abdominal: General: Bowel sounds are normal. There is no distension. Palpations: Abdomen is soft. There is no mass. Tenderness: There is no abdominal tenderness. Musculoskeletal: General: No deformity. Normal range of motion. Lymphadenopathy: Cervical: No cervical adenopathy. Skin: General: Skin is warm and dry. Coloration: Skin is not jaundiced or pale. Findings: No rash. Neurological: General: No focal deficit present. Mental Status: She is alert and oriented to person, place, and time. Cranial Nerves: No cranial nerve deficit. Sensory: No sensory deficit. Motor: No abnormal muscle tone. Coordination: Coordination normal. Deep Tendon Reflexes: Reflexes normal. Psychiatric: Mood and Affect: Mood normal. Behavior: Behavior normal. Thought Content: Thought content normal. Judgment: Judgment normal. Assessment and Plan ASSESSMENT/PLAN: 1. Routine medical exam - ICD9: V70.0, ICD10: Z00.00 (primary diagnosis) - Counseled on healthy diet and regular exercise - Calcium intake with supplements or by diet of 1000 mg/day for under 50, 1200- 1500 mg/day for 50+ - Discussed need and benefit for weight loss. BMI 32.28 kg/(m^2) 2. Back pain with radiation - ICD9: 724.5, ICD10: M54.9 - CYCLOBENZAPRINE 10 MG TABLET 3. Pelvic pain in female - ICD9: 625.9, ICD10: R10.2 - CYCLOBENZAPRINE 10 MG TABLET Akira Pierre MD documented in this encounterBrecksville [facility]09-26-[facility] Miscellaneous Notes* Telephone Encounter - Yenny Posadas RN - 12/02/2021 10:56 AM EDT Consent signed November 18, 2021 Randomized 11/18/2021 Treatment ARM: HT - TA2 Called patient back at this time - updated that patient has started study hormone therapy today 12.02.2021. Patient denies any questions or concerns at this time. Yenny Posadas RN [phone] documented in this encounterBrecksville [facility]09-20-20[facility] History of Present illness Narrative* Yenny Posadas RN - 11/26/2021 8:17 AM EDT IRB# [id number] Title: NRG BR007: A Phase III Clinical Trial Evaluating De- Escalation of Breast Radiation for Conservative Treatment of Stage I, Hormone Sensitive, Her2-Negative, Oncotype Recurrence Score <= 18 Breast Cancer. Consent Date: 11/18/2021 Randomization Date: 11/18/2021 Treatment ARM: HT - TA2 Baseline Optional Labs Collected: 11/25/2021 Drawn at 10:19 AM Shipped to [facility] for storage until 3 month post randomization draw - Sent with [employer] at 11:51 AM - Called and updated Heriberto Juarez at [facility]. Shipped 14 Cryovials: 4 EDTA - PLS 1 EDTA - BC 4 Serum 4 STK- PLS 1 STK - BC Patient to RTC in 3 months - Patient to call with update on when she received and started her endocrine therapy. Yenny Posadas RN [phone] documented in this encounterBrecksville [facility]09-16-2022 Miscellaneous Notes* Telephone Encounter - OCTAVIA Mei - 11/22/2021 2:32 PM EDT Results left on patient voicemail. Rebeca Wilson's Custom Cancer Panel through [employer] was negative for a pathogenic variant. Please see [employer] message for further discussion. OCTAVIA Mei Licensed, Certified Genetic Counselor documented in this encounterBrecksville [facility]09-14-2022 Miscellaneous Notes* Telephone Encounter - Yenny Posadas RN - 11/20/2021 9:49 AM EDT Left a voicemail at this time. Yenny Posadas RN documented in this encounterBrecksville [facility]09-12-2022 History of Present illness Narrative* Celina Hutchison RN - 11/18/2021 5:44 PM EDT A second RN check was completed and this RN determined that the patient meets all criteria for study participation per section three (3) per study protocol. Eligibility Confirmation Coversheet was signed and dated for today 11/18/2021. Celina Hutchison RN * Yenny Posadas RN - 11/15/2021 2:19 PM EDT IRB# [id number] Title: NRG BR007: A Phase III Clinical Trial Evaluating De- Escalation of Breast Radiation for Conservative Treatment of Stage I, Hormone Sensitive, Her2-Negative, Oncotype Recurrence Score <= 18 Breast Cancer. Patient is here for SCREENING VISIT for the BR007 Study. Informed Consent signed on November 18, 2021, prior to any study related procedures being performed that are not SOC. Breast Radiation Therapy No Breast Radiation Therapy + VS + Endocrine Therapy Endocrine Therapy Patient is a 56 year old (1965) female with unilateral histologically and/or cytologically confirmed ER and AR Positive, HER2 Negative Breast Cancer with negative margins. Patient is willing andable to comply with the protocol for the duration of the study including undergoing treatment and scheduled visits and examinations. Patient ECOG 0/ KPS 100 by Jose E Bettencourt MD 10/24/2021 Female patients of childbearing potential and male patients with partners of childbearing potentialagree to use a highly effective form(s) of contraception and/or sexual abstinence during and up to N/A days after the last dose of N/A. Patient is postmenopausal (> 12 months of non-therapy induced amenorrhea) Patient confirmed post-menopausal at age 53 Patient reported having fully recovered from surgery, incision completed healed and no signs of infection. Patient is Female who is post-menopausal (See section 3.2.12 for postmenopausal criteria). Patient is intending to take endocrine therapy for a minimum of 5 years duration. 3.2 Eligibility Criteria A patient cannot be considered eligible for this study unless ALL of the following conditions are met. 3.2.1 The patient or a legally authorized access services representative must provide study- specific informed consent prior to study entry and, for patients treated in the [place] authorization permitting release of personal health information. Consent signed 11/2021 3.2.2 The patient must be ? 50 years and < 70 years of age. 56 year old 1965 3.2.3 The trial is open to female and male patients. Female 3.2.4 The patient must have an ECOG performance status of 0 or 1. Patient KPS 100/ ECOG 0 by MD Ingrid 10/24/2021 3.2.5 The patient must have undergone a lumpectomy and the margins of the resected specimen or reexcision must be histologically free of invasive tumor and DCIS with no ink on tumor as determined by the local pathologist. If pathologic examination demonstrates tumor at the line of resection, additional excisions may be performed to obtain clear margins. (Patients with margins positive for LCIS are eligible without additional resection.) Final pathology reports Invasive mammary carcinoma with mixed ductal and lobular features, 7 mm (margins clear), Grade 2, 0/2 LN, -LVI ER+, AR+, HER2- Dana Flores PA-C 10/15/2021 and Patient underwent right breast GREGORY cloud systems architect localized lumpectomy and right sentinel lymph node biopsy on 10/07/2021 3.2.6 The tumor must be unilateral invasive adenocarcinoma of the breast on histologic examination.documented by Caitlin Suarez MD 11/15/2021 and pathology report 10/07/2021 3.2.7 Patient must have undergone axillary staging (sentinel node biopsy and/or axillary node dissection). documented by Caitlin Suarez MD 11/15/2021 and surgical pathology 10/07/2021 3.2.8 The following staging criteria must be met postoperatively according to AJCC 8th edition criteria: By pathologic evaluation, primary tumor must be pT1 ( ? 2 cm). documented by Caitlin Suarez MD 11/15/2021 By pathologic evaluation, ipsilateral nodes must be pN0. (Patients with pathologic staging of pN0(i+) or pN0(mol+) are NOT eligible documented by Caitlin Suraez MD 11/15/2021 3.2.9 Oncotype DX Recurrence Score of ? 18 on diagnostic core biopsy or resected specimen. For patients with a T1a tumor (? 0.5 cm in size) who do not already have an Oncotype DX Recurrence Score at study entry, a specimen (unstained blocks or slides) must be sent to the [facility] centralized laboratory. Patient Oncotype 10 - Scanned and on the R drive - documented by Caitlin Suarez MD 11/15/2021 and patients tumor size is greater than T1a tumor size and samplenot required to be sent 3.2.10 The tumor must have been determined to be ER and/or PgR positive assessed by current ASCO/CAP Guideline Recommendations for hormone receptor testing. Patients with ? 1% ER or PgR staining by IHC are considered positive. Pathologic stage from 10/24/2021: Stage IA (pT1b, pN0(sn), cM0, G2, ER+, AR+, HER2-, Oncotype DX score: 10) - Signed by Caitlin Suarez MD on 11/15/2021 3.2.11 The tumor must have been determined to be HER2-negative by current ASCO/CAP guidelines. Pathologic stage from 10/24/2021: Stage IA (pT1b, pN0(sn), cM0, G2, ER+, AR+, HER2-, Oncotype DX score: 10) - Signed by Caitlin Suarez MD on Pathology 10/07/2021 3.2.12 Patients may be premenopausal or postmenopausal at the time of study entry. For study purposes, postmenopausal is defined as: Age 56 or older with no spontaneous menses for at least 12 months prior to study entry; or a documented hysterectomy; or Age 55 or younger with no spontaneous menses for at least 12 months prior to study entry (e.g., spontaneous or secondary to hysterectomy) and with a documented estradiol level in the postmenopausal range according to local institutional/laboratory standard; or Documented bilateral oophorectomy. Patient confirmed post-menopausal at age 53 3.2.13 The interval between the last surgery for breast cancer (including re- excision of margins) and study entry must be no more than 70 days.documented by Caitlin Suarez MD 11/15/2021 and date of surgery 10/07/2021 and must be registered by 12/16/2021 3.2.14 The patient must have recovered from surgery with the incision completely healed and no signs of infection. Dana Flores PA-C Note 10/15/2021 3.2.15 Bilateral mammogram or MRI within 6 months prior to study entry. 10/02/2021 3.2.16 HIV-infected patients on effective anti-retroviral therapy with undetectable viral load within 6 months are eligible for this trial. Patient Denies - Chart Reviewed 11/15/2021 3.2.17 Patients must be intending to take endocrine therapy for a minimum 5 years duration (tamoxifen or aromatase inhibitor). The specific regimen of endocrine therapy is at the treating physician s discretion. Patient Agrees 11/15/2021 3.3 Ineligibility Criteria Patients with any of the following conditions are NOT eligible for this study 3.3.1 Definitive clinical or radiologic evidence of metastatic disease. Patient Denies - Chart Reviewed 11/15/2021 Pathologic stage from 10/24/2021: Stage IA (pT1b, pN0(sn), cM0, G2, ER+, AR+, HER2-, Oncotype DX score: 10) - Signed by Caitlin Suarez MD on 11/15/2021 3.3.2 pT2 - pT4 tumors including inflammatory breast cancer. N/A Pathologic stage from 10/24/2021: Stage IA (pT1b, pN0(sn), cM0, G2, ER+, AR+, HER2-, Oncotype DX score: 10) - Signed by Caitlin Suarez MD on 11/15/2021 3.3.3 Pathologic staging of pN0(i+) or pN0(mol+), pN1, pN2, or pN3 disease.N/A Pathologic stage from 10/24/2021: Stage IA (pT1b, pN0(sn), cM0, G2, ER+, AR+, HER2-, Oncotype DX score: 10) - Signed by Caitlin Suarez MD on 11/15/2021 3.3.4 Patient had a mastectomy. Patient Denies - Chart Reviewed 11/15/2021 3.3.5 Palpable or radiographically suspicious ipsilateral or contralateral axillary, supraclavicular, infraclavicular, or internal mammary nodes, unless there is histologic confirmation that these nodes are negative for tumor. Pathologic stage from 10/24/2021: Stage IA (pT1b, pN0(sn), cM0, G2, ER+, AR+, HER2-, Oncotype DX score: 10) - Signed by Caitlin Suarez MD on 11/15/2021 Reviewed Caitlin Suarez Note 11/15/2021 3.3.6 Suspicious microcalcifications, densities, or palpable abnormalities (in the ipsilateral or contralateral breast) unless biopsied and found to be benign.Pathologic stage from 10/24/2021: StageIA (pT1b, pN0(sn), cM0, G2, ER+, AR+, HER2-, Oncotype DX score: 10) - Signed by Caitlin Suarez MD on 11/15/2021 Reviewed Caitlin Suarez Note 11/15/2021 3.3.7 Non-epithelial breast malignancies such as sarcoma or lymphoma. Patient Denies - Chart Reviewed 11/15/2021 3.3.8 Proven multicentric carcinoma (invasive cancer or DCIS) in more than one quadrant or by 4 or more centimeters. (Patients with multifocal carcinoma are eligible.) Patient Denies - ChartReviewed 11/15/2021 3.3.9 Paget's disease of the nipple. Patient Denies - Chart Reviewed 11/15/2021 3.3.10 Any history, not including the index cancer, of ipsilateral invasive breast cancer or ipsilateral DCIS treated or not treated. (Patients with synchronous or previous ipsilateral LCIS are eligible.)Patient Denies - Chart Reviewed 11/15/2021 3.3.11 Synchronous or previous contralateral invasive breast cancer or DCIS. (Patients with synchronous and/or previous contralateral LCIS are eligible.) Patient Denies 11/15/2021 3.3.12 Surgical margins that cannot be microscopically assessed or are positive at pathologic evaluation. (If surgical margins are rendered free of disease by re-excision, the patient is eligible.) Final pathology reports Invasive mammary carcinoma with mixed ductal and lobular features, 7 mm (margins clear), Grade 2, 0/2 LN, -LVI ER+, AR+, HER2- Dana Flores PA-C 10/15/2021 3.3.13 Treatment plan that includes regional adam irradiation. Patient Denies 11/15/2021 and not documented by radiologist, but patient said was discussed 3.3.14 Any treatment with radiation therapy, chemotherapy, biotherapy, and/or endocrine therapy administered for the currently diagnosed breast cancer prior to study entry. (Short course endocrine therapy of < 6 weeks duration is acceptable post core biopsy pre surgery if the Oncotype DX Recurrence Score is assessed on the biopsy core and is < 18.) Patient Denies 11/15/2021 3.3.15 History of non-breast malignancies (except for in situ cancers treated only by local excision and basal cell and squamous cell carcinomas of the skin) within 5 years prior to study entry. Patient Denies 11/15/2021 3.3.16 Current therapy with any endocrine therapy such as raloxifene (Evista ), tamoxifen, or other selective estrogen receptor modulators (SERMs), either for osteoporosis or breast cancer prevention. (Short course endocrine therapy of < 6 weeks duration is acceptable post core biopsy pre surgery if the Oncotype DX Recurrence Score is assessed on the biopsy core and is < 18.) Patient Denies - Reviewed Chart 11/15/2021 3.3.17 Patients intending to continue on oral, transdermal, or subdermal estrogen replacement (including all estrogen only and estrogen-progesterone formulas) are not eligible. Patients that discontinue oral, transdermal, or subdermal estrogen replacement prior to registration are eligible. Patient Denies 11/15/2021 3.3.18 Prior breast or thoracic RT for any condition. Patient Denies 11/15/2021 3.3.19 Active collagen vascular disease, specifically dermatomyositis with a CPK level above normalor with an active skin rash, systemic lupus erythematosis, or scleroderma. [id number] Version Date: May 11, 2020 Patient Denies 11/15/2021 3.3.20 or at the time of study entry or intention to become during treatment. (Note: testing according to institutional standards for women of childbearing potential must be performed within 2 weeks prior to study entry.) Patient Denies - Post-Menopausal 11/15/2021 3.3.21 Any other disease, metabolic dysfunction, physical examination finding, or clinical laboratory finding giving reasonable suspicion of a disease or condition that contraindicates the use of study therapy or that may affect the interpretation of the results or render the patient at high risk from treatment complications.Patient Denies 11/15/2021 3.3.22 Psychiatric or addictive disorders or other conditions that, in the opinion of the clerical investigator, would preclude the patient from meeting the study requirements or interfere with interpretation of study results. Patient Denies 11/15/2021 3.3.23 Use of any investigational product within 30 days prior to study entry. Patient Denies 11/15/2021 PAST MEDICAL HISTORY Diagnosis Date Status GERD (gastroesophageal reflux disease) Medication managed History of COVID-19 09/11/2021 No longer symptomatic - outside COVID 10 day window Malignant neoplasm of overlapping sites of right female breast (HCC) 09/2021 Currently being treated for trial Narrowing of intervertebral disc space Medication Treatment and minimal issues post job change L5 and S1 Obese Patient managing with diet and exercise thyroid nodule Found to be negative post biopsy 2013 PAST SURGICAL HISTORY Procedure Laterality Date BIOPSY THYROID 08/2013 COLONOSCOPY FLX DX W/COLLJ SPEC WHEN PFRMD 11/28/2016 COLONOSCOPY FLX DX W/COLLJ SPEC WHEN PFRMD 01/31/2020 TUBAL LIGATION, 1990 Current medications reviewed with patient as reported below: Current Outpatient Medications on File Prior to Visit Medication Sig Start/Stop Use [START ON 11/25/2021] exemestane (AROMASIN) 25 mg tablet Take 1 tablet by mouth once daily. 11/25/2021 patient has not started, but this is the planned treatment for trial endocrine therapy cyclobenzaprine (FLEXERIL) 10 mg tablet Take 0.5-1 tablets by mouth three times daily as needed formuscle spasm. Start: 11/15/2021 Muscle relaxer meloxicam (MOBIC) 15 mg tablet Take 1 tablet by mouth once daily. Start: 07/23/2021 Pain buPROPion SR (WELLBUTRIN SR) 150 mg 12 hr tablet Take 1 tablet by mouth twice daily. Start:07/07/2014 Depression and Smoking Cessation omeprazole (PRILOSEC) 20 mg capsule Take 20 mg by mouth once daily. Start:2019 GERD MULTI-VITAMIN ORAL Take by mouth once daily. Start: >15 years Supplement fluticasone (FLONASE) 50 mcg/actuation nasal spray Use 2 Sprays in each nostril once daily. Rinse mouth after use. Start: 07/12/2013 Allergies No current facility-administered medications on file prior to visit. Baseline Toxicities per CTCAE v. 5: All predate therapy, are chronic conditions and will not be actively followed unless they worsen during the clinical trial. Nothing gradable prior to study Patient meets all Criteria for Study Participation: Yes Patient knows to RTC once discussed post randomization and will be contacted by research nurse. Patient knows to call in the interim for any questions or concerns. Patient has contact information Ad Wilson Nurse and Dr. Byrd and , along with the 24 hour On-Call number for the On- Call Oncology Fellow ([phone]). DANA Bond, RN Clinical Research Nurse [phone] [facility] History of Present illness Narrative* Yenny Posadas RN - 11/18/2021 5:28 PM EDT Consent signed November 18, 2021 - please see attached consent Randomized 11/18/2021 Treatment ARM: HT - TA2 Yenny Posadas RN documented in this encounterBrecks[facility] Miscellaneous Notes* Telephone Encounter - Akira Pierre MD - 11/15/2021 7:08 PM EDT Okayed * Telephone Encounter - Nima Hinoojsa Ma - 11/15/2021 11:14 AM EDT RODRIGO: 06/07/2021 distance health Last refill: 06/07/2021 QTY: 90 Refills: 1 documented in this encounterBrec[facility] History of Present illness Narrative* Yenny Posadas RN - 11/15/2021 2:11 PM EDT Informed Consent Presentation IRB# [id number] Title: A Phase III Clinical Trial Evaluating De- Escalation of Breast Radiation for Conservative Treatment of Stage I, Hormone Sensitive, Her2-Negative, Oncotype Recurrence Score <= 18 Breast Cancer Consent expiration date 04/10/2022 Spoke with patient and spouse at the request of Dr. Gladis Byrd M.D. . Treatment plan, including all testing, potential risks/benefits, side effects and management, treatment alternatives, and follow-up explained. Roles of the clinical trial personnel to be involved and the financial responsibilities regarding procedures and medications were discussed. Initial questions were answered and a copy of the informed consent was given to patient with the instructions to read it and call with any additional questions. Contact information for the research nurse was given to the patient. The patient kevin balized appropriate understanding of all the aforementioned information presented. Time of Presentation: 1:45 pm November 15, 2021 Yenny Posadas RN documented in this encounterBrecksville [facility] History of Present illness Narrative* Caitlin Suarez MD - 11/15/2021 9:20 AM EDT [facility] DIST[facility] VISIT This [facility] which required patient- provider interaction for the medical decision making as documented below. Persons Present: patient eRbeca Wilson has consented to this distance health encounter. Total Time Spent: I spent a total of 30 minutes on the date of the service which included [id number] patient care, completing clinical documentation, obtaining and/or reviewing separately obtained history, counseling and educating the patient/family/caregiver, communicating with other HCPs (not separately reported), and independently interpreting results (not separately reported). Referring physician: Amaya Bravo DO Presenting complaint: Patient Rebeca Wilson returns for breast cancer. Cancer Staging Malignant neoplasm of 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, estrogen receptor positive (HCC) Staging form: Breast, AJCC 8th Edition - Pathologic stage from 10/24/2021: Stage IA (pT1b, pN0(sn), cM0, G2, ER+, AR+, HER2-, Oncotype DX score: 10) - Signed by Caitlin Suarez MD on 11/15/2021 ASSESSMENT: (C50.211, Z17.0) Malignant neoplasm of 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, estrogen receptor positive (HCC) (primary encounter diagnosis) Comment: Patient is a delightful 56 year old lady who developed abrasion at right upper breast, the site of her new bra strap clasp. She was seen by Dr. Edie Johnson on 06/26/2021 with notice of a dense right breast induration and erythema measuring 6 cm x 7 cm x 5 cm with excoriated skin with white fibrous tissue about 1 cm x 1.5 cm. This was treated as breast abscess. Diagnostic mammogram with ultrasound of breast on 07/17/2021 showed a round mass measuring 0.6 cm involving right breast at 1:00 position about 3 cm from the nipple. There was slight thickened single axillary lymph node measuring 0.4cm (normal appearance). The infectious abscess was not related to underlying breast lesion. Ultrasound guided Right breast core biopsy on 08/20/[address] [facility] revealed invasive mammary carcinoma with provisional grade 2 with ER+ status at 91-100%, AR+ status at 81-90%, HER2 negative status by IHC score 1+. Family history was positive for breast cancer in her paternal grandmother and maternal aunt x 2. The patient's father of lung cancer. Patient was with menarche age 14 years, age at of first child 19 years, menopause age 53years, no breast feeding. Plan: Patient underwent right breast GREGORY cloud systems architect localized lumpectomy and right sentinel lymph node biopsyon 10/07/2021. Pathology revealed invasive mammary carcinoma with mixed ductal and lobular features with Ephraim grade 2 measuring 7 mm in greatest dimension. There were surrounding breast parenchyma with ADH, fibrocystic changes and microcalcifications. Lymphovascular invasion was not identified.DCIS was not identified. Surgical margins were negative by at least 1.5 mm (medial margin). Two sentinel lymph node were negative for carcinoma (0/1). Oncotype DX Score was 10. Risk of distant recurrence was low at 3% with endocrine therapy alone per TAILORx data. Group average absolute chemotherapy benefit was low at <1% so chemotherapy was not recommended. Plan to screen for eligibility in participating in clinical trial [id number]. Patient is interested in this clinical trial. Plan to proceed with adjuvant endocrine therapy with exemestane 25 mg daily x 5 years based on baseline arthralgias (this can start only after clarified eligibility for trial or completion of radiation if recommended by radiation oncology). Exemestane was sent to [facility] [place] [address] - [phone] [phone] PORTAL TO REGISTERED [facility] (recommended by insurance). DEXA scan showed normal baseline bone density on 10/30/2021. Follow-up early February for follow-up on exemestane tolerance (can be virtual). HPI: Patient underwent right breast GREGORY cloud systems architect localized lumpectomy and right sentinel lymph node biopsyon 10/07/2021. Pathology revealed invasive mammary carcinoma with mixed ductal and lobular features with Ephraim grade 2 measuring 7 mm in greatest dimension. There were surrounding breast parenchyma with ADH, fibrocystic changes and microcalcifications. Lymphovascular invasion was not identified.DCIS was not identified. Surgical margins were negative by at least 1.5 mm (medial margin). Two sentinel lymph node were negative for carcinoma (0/1). Oncotype DX Score was 10. Patient with baseline arthralgias requiring regular meloxicam. 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 Obese thyroid nodule PAST SURGICAL HISTORY Procedure Laterality Date BIOPSY THYROID 08/2013 COLONOSCOPY FLX DX W/COLLJ SPEC WHEN PFRMD 11/28/2016 COLONOSCOPY FLX DX W/COLLJ SPEC WHEN PFRMD 01/31/2020 TUBAL LIGATION, 1990 FAMILY HISTORY Problem Relation Age of Onset Hypertension Mother Allergies Mother Cancer Father 57 lung-smoker COPD Sister None Sister Breast Cancer Paternal Grandmother 79 Cancer Paternal Grandmother 89 unknown abdominal cancer Colon Cancer Paternal Grandfather 66 Cancer Paternal Aunt 63 lung - smoker Breast Cancer Paternal Aunt 68 Renal Cell Cancer Paternal Uncle 65 Cancer Paternal Uncle 72 adrenal Breast Cancer Other 2 paternal great aunts, unknown ages Breast Cancer Paternal great-grandmother SOCIAL HISTORY Social History Tobacco Use Smoking status: Former Packs/day: 1.00 Years: 32.00 Pack years: 32.00 Types: Cigarettes Start date: 08/04/1983 Quit date: 08/07/2015 Years since quittin.2 Smokeless tobacco: Never Vaping Use Vaping Use: Never used Substance Use Topics Alcohol use: Yes Comment: Not weekly Drug use: No ALLERGIES: ALLERGIES No Known Allergies MEDICATIONS: Current Outpatient Medications Medication Sig cyclobenzaprine (FLEXERIL) 10 mg tablet Take 0.5-1 tablets by mouth three times daily as needed formuscle spasm. meloxicam (MOBIC) 15 mg tablet Take 1 tablet by mouth once daily. buPROPion SR (WELLBUTRIN SR) 150 mg 12 hr tablet Take 1 tablet by mouth twice daily. omeprazole (PRILOSEC) 20 mg capsule Take 20 mg by mouth once daily. MULTI-VITAMIN ORAL Take by mouth once daily. fluticasone (FLONASE) 50 mcg/actuation nasal spray Use 2 Sprays in each nostril once daily. Rinse mouth after use. No current facility-administered medications for this visit. REVIEW OF SYSTEMS: Review of Systems Constitutional: Negative for chills and fatigue. HENT: Negative for mouth sores and trouble swallowing. Eyes: Negative for eye problems and icterus. Respiratory: Negative for chest tightness, cough, hemoptysis and shortness of breath. Cardiovascular: Negative for chest pain and palpitations. Gastrointestinal: Negative for abdominal pain and blood in stool. Endocrine: Negative for hot flashes. Genitourinary: Negative for difficulty urinating and hematuria. Musculoskeletal: Positive for arthralgias and myalgias. Negative for back pain, gait problem and neck pain. Skin: Negative for itching, rash and wound. Neurological: Negative for gait problem and light-headedness. Hematological: Negative for adenopathy. Does not bruise/bleed easily. Psychiatric/Behavioral: Negative for decreased concentration and depression. PHYSICAL EXAMINATION: VITALS: not performed due to virtual visit Physical Exam Constitutional: General: She is not in acute distress. Appearance: She is not toxic-appearing or diaphoretic. HENT: Head: Normocephalic and atraumatic. Eyes: General: No scleral icterus. Neurological: Mental Status: She is alert. Mental status is at baseline. Psychiatric: Mood and Affect: Mood normal. Behavior: Behavior normal. Thought Content: Thought content normal. Judgment: Judgment normal. LABS: 1. WBC Date Value Ref Range Status 06/17/2021 8.73 3.70 - 11.00 k/uL Final RBC Date Value Ref Range Status 06/17/2021 4.10 3.90 - 5.20 m/uL Final Hemoglobin Date Value Ref Range Status 06/17/2021 12.2 11.5 - 15.5 g/dL Final Hematocrit Date Value Ref Range Status 06/17/2021 38.6 36.0 - 46.0 % Final MCV Date Value Ref Range Status 06/17/2021 94.1 80.0 - 100.0 fL Final MCH Date Value Ref Range Status 06/17/2021 29.8 26.0 - 34.0 pg Final MCHC Date Value Ref Range Status 06/17/2021 31.6 30.5 - 36.0 g/dL Final RDW-CV Date Value Ref Range Status 06/17/2021 13.2 11.5 - 15.0 % Final Platelet Count Date Value Ref Range Status 06/17/2021 436 (H) 150 - 400 k/uL Final MPV Date Value Ref Range Status 06/17/2021 9.9 9.0 - 12.7 fL Final Abs Neut (ANC) Date Value Ref Range Status 08/13/2015 4.34 1.45 - 7.50 k/uL Final Lymph% Date Value Ref Range Status 08/13/2015 35.4 % Final Abs Lymph Date Value Ref Range Status 08/13/2015 2.65 1.00 - 4.00 k/uL Final [place]% Date Value Ref Range Status 08/13/2015 5.2 % Final Abs [place] Date Value Ref Range Status 08/13/2015 0.39 0.00 - 0.86 k/uL Final Abs Eosin Date Value Ref Range Status 08/13/2015 0.07 0.00 - 0.45 k/uL Final Baso% Date Value Ref Range Status 08/13/2015 0.5 % Final Abs Baso Date Value Ref Range Status 08/13/2015 0.04 0.00 - 0.10 k/uL Final 2. Glucose (mg/dL) Date Value 06/17/2021 100 08/13/2015 91 Potassium (mmol/L) Date Value 06/17/2021 3.9 08/13/2015 4.3 Sodium (mmol/L) Date Value 06/17/2021 141 08/13/2015 138 Chloride (mmol/L) Date Value 06/17/2021 102 08/13/2015 104 CO2 (mmol/L) Date Value 06/17/2021 27 08/13/2015 27 Creatinine (mg/dL) Date Value 06/17/2021 0.87 08/13/2015 0.79 BUN (mg/dL) Date Value 06/17/2021 13 08/13/2015 11 Anion Gap (mmol/L) Date Value 06/17/2021 12 08/13/2015 7 Calcium (mg/dL) Date Value 08/13/2015 8.8 Calcium, Total (mg/dL) Date Value 06/17/2021 9.4 Protein, Total (g/dL) Date Value 06/17/2021 7.2 08/13/2015 6.1 Albumin (g/dL) Date Value 06/17/2021 4.3 08/13/2015 4.2 Bilirubin, Total (mg/dL) Date Value 06/17/2021 0.5 08/13/2015 0.2 Alkaline Phosphatase (U/L) Date Value 06/17/2021 77 08/13/2015 40 AST (U/L) Date Value 06/17/2021 16 08/13/2015 16 ALT (U/L) Date Value 06/17/2021 18 08/13/2015 15 ADIOLOGICAL REPORTS: BILATERAL DIGITAL SCREENING MAMMOGRAM WITH CAD: 10/16/2020 HISTORY: Screening Mammogram, Encounter For / Screening Mammogram-Patient reports NO symptoms /priors available for comparison. RESULT: TECHNIQUE: The study was acquired using full field digital technology and interpreted from soft copy. Current study was also evaluated with a Computer Aided Detection (CAD). Comparison is made to exams dated: 12/09/2017 mammogram, 08/15/2015 mammogram, 05/15/2014 mammogram, and 10/27/2011 mammogram - [facility]. The tissue of both breasts is heterogeneously dense. This may lower the sensitivity of mammography. There is an asymmetry in the right breast upper inner aspect posterior depth. No other significant masses, calcifications, or other findings are seen in either breast. IMPRESSION: INCOMPLETE: NEEDS ADDITIONAL IMAGING EVALUATION The asymmetry in the right breast is indeterminate. Additional views are recommended. UNILATERAL RIGHT DIGITAL DIAGNOSTIC MAMMOGRAM TOMOSYNTHESIS WITH CAD: 07/17/2021 HISTORY: Abnormal MammogramCALL BACK RIGHT BREAST Abnormal Mammogram. RESULT: TECHNIQUE: The study was acquired using full field digital technology and interpreted from soft copy. Digital Breast Tomosynthesis (DBT) images were obtained and used to assist in the interpretation ofthis examination. Current study was also evaluated with a Computer Aided Detection (CAD). Comparison is made to exam dated: 10/16/2020 mammogram [facility]. The tissue of right breast is heterogeneously dense. This may lower the sensitivity of mammography. There is a 6 mm round equal density mass with a spiculated margin in the right breast at 1 o'clock middle depth. No other significant masses or calcifications are seen in the breast. IMPRESSION: SUSPICIOUS FINDING - BIOPSY SHOULD BE CONSIDERED The 6 mm round equal density mass in the right breast is suspicious of malignancy. An ultrasound guided biopsy is recommended. LIMITED ULTRASOUND OF RIGHT BREAST AND AXILLA: 07/17/2021 RESULT: Comparison is made to exam dated: 10/16/2020 mammogram [facility]. Color flow and real-time ultrasound of the right breast upper inner quadrant and axilla regions were performed. Triana scale images of the real-time examination were reviewed. There is 0.6 cm x 0.5 cm x 0.5 cm oval mass with a circumscribed margin in the right breast at 1 o'clock posterior depth 3 cm from the nipple. This oval mass is hypoechoic with internal echoes. This correlates with mammography findings. Colorflow imaging demonstrates that there is no vascularity present. There is slight thickening of a single axillary node at 4 mm. IMPRESSION: SUSPICIOUS FINDING - BIOPSY SHOULD BE CONSIDERED The 0.6 cm x 0.5 cm x 0.5 cm oval mass in the right breast is suspicious of malignancy. An ultrasound guided biopsy is recommended. HISTO PATHOLOGICAL REPORT: SURGICAL PATHOLOGY: [id number] Collected 08/20/2021 10:14 AM Status: Final result Component FINAL DIAGNOSIS A. Breast, right, 1:00, 3 cm from nipple, core biopsy: - Invasive mammary carcinoma, provisional histologic grade 2, (see comment). Diagnosis Comment Sections demonstrate an invasive carcinoma characterized by apparent rare tubule formation (3 points), moderate nuclear atypia (2 points) and low mitotic rate (1 point, 5 mitoses per 10 high-power santacruz), for a combined provisional Ephraim score of 6 (moderately differentiated, grade 2). The largest focus of invasive carcinoma is 6.5 mm. The morphologic pattern includes nests and cords, with focal apparent tubule formation, however an immunohistochemical stain for E-cadherin is negative in the invasive carcinoma; the histologic type may be better assessed on the resection specimen, thoughthe differential includes invasive lobular carcinoma and invasive carcinoma with mixed ductal and lobular features. (The E-cadherin stain was performed at [facility] and interpretedat [facility].) There is focal lobular neoplasia (either atypical lobular hyperplasia or lobularcarcinoma in situ), as demonstrated by the presence of [id number] myoepithelial cells. Immunohistochemical stains for ER and AR were performed with results in a linked report. HER-2 evaluation was performed at [facility] with results in a linked report. The case was reviewed by Dr. Tyson White, who agrees with this assessment. Breast Biomarkers (HER2 (ERBB2) by IHC) RESULTS: HER2 (ERBB2) IMMUNOHISTOCHEMISTRY ASSAY Interpretation: NEGATIVE for HER2 (ERBB2) Expression Score:1+ Percentage of cells with uniform intense complete membrane staining: N/A (reported for 2+ and 3+ scores only) RESULTS: Estrogen Receptor (ER) Positive 91-100 % Stain intensity: strong Internal controls: present and stained as expected External controls: appropriately stained Progesterone Receptor (AR) Positive 81-90 % Stain intensity: strong Internal controls: present and stained as expected External controls: appropriately stained Tissue Analyzed: Invasive carcinoma Tumor Grade: Breast Tumor Grade: Grade 2 SURGICAL PATHOLOGY: [id number] Collected 10/07/2021 FINAL DIAGNOSIS A. Right axilla, sentinel lymph nodes, excision: -Two lymph nodes, negative for metastatic carcinoma (0/2), (please see comment). B. Right breast, lumpectomy: - Invasive mammary carcinoma with mixed ductal and lobular features, Ephraim grade 2, measuring 7 mm in greatest dimension, (please see comment and synoptic report). 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 Right breast, anterior margin, excision: - Unremarkable breast parenchyma D. Right breast, posterior margin, excision: - Unremarkable breast parenchyma E. Right breast, superior margin, excision: - Unremarkable breast parenchyma F. Right breast, inferior margin, excision: - Unremarkable breast parenchyma G. Right breast, medial margin, excision: - Unremarkable breast parenchyma H. Right breast, lateral margin, excision: - Intraductal papilloma with usual ductal hyperplasia Diagnosis Comment: Part A - Immunohistochemistry for cytokeratin AE1/AE3 has been performed, which is negative for metastatic carcinoma. Part B - The specimen has been entirely submitted for histologic examination. While morphologicallythe invasive carcinoma demonstrates mixed ductal and lobular features, immunostains for E-cadherin and B-catenin demonstrate that the tumor is predominately lobular phenotype. A multiplex immunostainfor ADH5 (p63, CK7/18, CK5/14), was used in the evaluation of this material. The p63 and CK5/14 components show an absence of myoepithelial cells surrounding the glands of interest while these glandshave expression of CK7/18, supporting the diagnosis of invasive carcinoma. Similarly, SMMS1 shows loss of the myoepithelial cell layer. Please see separately submitted margins for additional information regarding the final margin status. Synoptic Report INVASIVE CARCINOMA OF THE BREAST: Resection 8th Edition - Protocol posted: 09/05/2020 INVASIVE CARCINOMA OF THE BREAST, RESECTION - A, B SPECIMEN Procedure Excision (less than total mastectomy) Specimen Laterality Right TUMOR Histologic Type Invasive carcinoma with mixed ductal and lobular features Histologic Grade ([place] Histologic Score) Glandular (Acinar) / Tubular Differentiation Score 3 Nuclear Pleomorphism Score 2 Mitotic Rate Score 1 Overall Grade Grade 2 (scores of 6 or 7) Tumor Size Greatest dimension of largest invasive focus (Millimeters): 7 mm Tumor Focality Single focus of invasive carcinoma Ductal Carcinoma In Situ (DCIS) Not identified Lymphovascular Invasion Not identified Treatment Effect in the Breast No known presurgical therapy MARGINS Margin Status for Invasive Carcinoma All margins negative for invasive carcinoma Distance from Invasive Carcinoma to Closest Margin 1.5 mm Closest Margin(s) to Invasive Carcinoma Medial REGIONAL LYMPH NODES Regional Lymph Node Status All regional lymph nodes negative for tumor Total Number of Lymph Nodes Examined (sentinel and non-sentinel) 2 Number of [place] Nodes Examined 2 PATHOLOGIC STAGE CLASSIFICATION (pTNM, AJCC 8th Edition) Reporting of pT, pN, and (when applicable) pM categories is based on information available to the pathologist at the time the report is issued. As per the AJCC (Chapter 1, 8th Ed.) it is the managingphysician's responsibility to establish the final pathologic stage based upon all pertinent information, including but potentially not limited to this pathology report. pT Category pT1b Regional Lymph Nodes Modifier (sn): [place] node(s) evaluated. pN Category pN0 Breast Biomarker Testing Performed on Previous Biopsy Estrogen Receptor (ER) Status Positive (greater than 10% of cells demonstrate nuclear positivity) Percentage of Cells with Nuclear Positivity 91-100% Breast Biomarker Testing Performed on Previous Biopsy Progesterone Receptor (PgR) Status Positive Percentage of Cells with Nuclear Positivity 81-90% Breast Biomarker Testing Performed on Previous Biopsy HER2 (by immunohistochemistry) Negative (Score 1+) Testing Performed on Comment(s) Tumor block: B3. The margin status in this synoptic report pertain the lumpectomy specimen only. Please see separately submitted margins for additional information regarding the final margin status. Caitlin Suarez MD Cc: DO Jose E Nguyen MD Daesung Lee, MD Liza D. Talampas, MD documented in this encounterBrecksville [facility] History of Present illness Narrative* Thu Blayne, OTR/L - 11/07/2021 11:23 AM EDT Episode Visit Count: 1 Therapist That Will Oversee The Plan Of Care: blayne Start of Care Date: 11/07/21 Onset Date: 10/07/21 Patient Identified by Name and Date of : Yes [facility] OCCUPATIONAL THERAPY EVALUATION PLAN OF CARE: Assessment: Rebeca Wilson presents with diagnosis of 4 weeks post R lumpectomy with slnb that interferes with (fatigues more easily) . She presents with impairments in flexibility, range of motion, and tissue tenderness. Prognosis for therapy is Good due to: current objective clinical presentation . She will benefit from skilled therapy services to meet the goals established for this plan of careas noted below. Goals for Episode of Care created on 11/07/21 through 02/05/22 Patient will demonstrate independence with ongoing home recommendations/exercise program throughouttherapy plan of care. Patient will report a decrease in discomfort in Right breast and axilla to 0/10 with prior functional tasks. Patient will increase AROM of Right shoulder by 5 degrees for flex and abd in order to be able to improve function for prior functional tasks. Patient will report a good understanding of edema control, scar / wound management throughout therapy plan of care to promote non-adherent / non-tender soft tissue. Patient Goals: To get back to previous lifestyle Planned Interventions, Frequency, and Duration: Current Frequency: 1x/month Duration: 12 weeks Total Number of Visits Planned: 4 Planned Treatment Interventions: Therapeutic exercise (99712);Manual therapy (77465);Self-care homemanagement (71347) PLAN FOR NEXT VISIT: Progress note- reassess R shoulder rom and if L breast and axilla have decreased sensitivity. See if additional treatment(chemo and radiation) will be needed. See if pt investigated yoga classes and if she has added walking to her daily routine Patient demonstrates good understanding of plan of care and treatment. The above goals and plan of care were discussed and agreed upon by patient/family. 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 [employer] Recreation / Current Exercise: not an exercise person Hobbies / Interests: managing her home / yard work Home Environment Patient Lives With: Spouse (and grown son) Pain: Pain Pain Level: 3 Pain Location: Breast - Right Description: (discomfort) Frequency: Intermittent Post Treatment Pain Post Treatment Pain Level: No Change PROMIS Scales Higher is Better 06/06/2021 09/19/2021 11/05/2021 Phys Func - Score - - 46 (within normal limits) Phys Func - Percentile - - 34 % Social Roles - Score - - 50 (within normal limits) Social Role - Percentile - - 50 % GH Physical - Score 47.7 (Good) 50.8 (Very Good) - GH Physical - Percentile 41 % 53 % - GH Mental - Score 41.1 (Good) 45.8 (Good) - GH Mental - Percentile 19 % 34 % - Self-Eff Symptom - Score - - 48 (Average) Self-Eff Symptom - Percentile - - 42 % T-scores: mean of general population = 50. 5 points is clinically meaningfully difference Percentiles provide an indication of how the patient's score ranks in relation to the general population. Higher percentile rankings indicate better function/quality of life. 50th percentile is the average of the general population and indicates half of respondents had a worse score. Lower is Better 11/05/2021 Fatigue - Score 53 (within normal limits) Fatigue - Percentile 38 % T-scores: mean of general population = 50. 5 points is clinically meaningfully difference Percentiles provide an indication of how the patient's score ranks in relation to the general population. Higher percentile rankings indicate better function/quality of life. 50th percentile is the average of the general population and indicates half of respondents had a worse score. OBJECTIVE MEASURES WITH LEVEL OF FUNCTION: Hand Skin / Wound: (closed and dry) Edema Location: R axilla Shoulder AROM: Right Limitation Upper Extremity Circumferential Measurements R Thumb (proximal phalanx) (cm): 6.1 cm R Index Finger (proximal phalanx) (cm): 6.2 cm R Middle Finger (proximal phalanx) (cm): 5.9 cm R Ring Finger (proximal phalanx) (cm): 5.8 cm R Small Finger (proximal phalanx) (cm): 5.2 cm R DPC (cm): 19 cm R Distal Wrist Crease (DWC) (cm): 16 cm R 4 cm above wrist (cm): 16.6 cm R 8 cm above wrist (cm): 19.2 cm R 12 cm above wrist (cm): 22.7 cm R 16 cm above wrist (cm): 25.3 cm R 20 cm above wrist (cm): 27 cm R 24 cm above wrist (cm): 27.4 cm R 28 cm above wrist (cm): 29 cm R 32 cm above wrist (cm): 31.5 cm R 36 cm above wrist (cm): 32.9 cm R 40 cm above wrist (cm): 34.9 cm R 44 cm above wrist (cm): 36.9 cm R Upper Extremity Volume: 2615.87 UE AROM R Shoulder Extension: 65 Degrees R Shoulder Flex: 155 Degrees R Shoulder ABduction: 155 Degrees R Shoulder Internal Rotation: (wfl) R Shoulder External Rotation: (wfl) Education: Education Learning Preferences: Printed Materials;Performance;Explanation;Demonstration Barriers: None Learning/educational needs: Plan of Care;Home exercise program Education Provided: Yes, see treatment interventions for education provided Education Provided To: Patient Education Mode/Type: Performance;Literature/Printed Materials;Demonstration;Explanation/Discussion Response to Education/Teach Back: States/Identifies TREATMENT: OT Treatment Interventions : Therapeutic Exercise;Manual Therapy Evaluation Therapeutic Exercise: 1: Objective measures recorded and goals set 2: Instruction in shoudler rom and importance of perfromance now during healing and to prepare for possible radiation 3: Instruction in skin careand lymphedema prevention 4: Encouraged pt in importance of ex and recommended daily walks and that pt consider yoga on a routine basis.(Restorative) Skilled Intervention: Patient was educated in proper exercise technique and purpose for exercises. Manual Therapy: 1: Instructed in desensitizing her R breast and axilla 2: Issued silicone ball to use to asst with massage to incisions as well as scar massage. Skilled Intervention: Manual skills to improve joint mobility, ROM, and decrease pain. Utilized anatomy knowledge of the therapist, and assessment of patient's response to intervention. Billing * Evaluation Moderate Complexity: 1 Unit Therapeutic Exercise Treatment Minutes: 15 Manual Therapy Treatment Minutes: 10 Total Treatment Time Minutes (timed/untimed): 60 Thu Cisneros OT/L,CHT,CLT-DANNA documented in this encounterBrecksville [facility]08-29-[facility] History of Present illness Narrative* OCTAVIA Mie - 11/04/2021 11:35 AM EDT [facility] Consultation Note Genetic Counselor: Rupa Chacon MS, [facility] Patient: Rebeca Wilson Patient Name and confirmed at initiation of visit. HIGH LEVEL SUMMARY: The patient's personal and family history is potentially suggestive of a hereditary cancer syndrome. The patient provided informed consent for Custom Cancer Panel through [facility] [employer]. Results are expectedin 2-3 weeks. IDENTIFICATION AND CHIEF COMPLAINT: Dr. Amaya Bravo requested a consultation for genetic counseling and risk assessment for Rebeca Wilson, a 56 year old female, for discussion of her personal and family history of breast cancer. She presents to clinic today to discuss the possibility of a genetic predisposition to cancer, andto further clarify her risks, as well as her family members' risks for cancer. HISTORY OF PRESENT ILLNESS: In 08/2021, at the age of 56, Rebeca Wilson was diagnosed with invasive mammary carcinoma with mixedductal and lobular features of the Right breast. This was treated with lumpectomy. 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 Obese thyroid nodule PAST SURGICAL HISTORY Procedure Laterality Date BIOPSY THYROID 08/2013 COLONOSCOPY FLX DX W/COLLJ SPEC WHEN PFRMD 11/28/2016 COLONOSCOPY FLX DX W/COLLJ SPEC WHEN PFRMD 01/31/2020 TUBAL LIGATION, 1990 CANCER SURVEILLANCE HISTORY: Colonoscopy: Yes / most recent 01/2020 EGD: No GI Polyps: Yes / 2016, Two small polyps in the sigmoid colon Pelvic Exam: Yes / as recommended Pap Smear: Yes / as recommended Transvaginal Ultrasound: Yes / most recent in [facility] 08/2015 Dermatology: No Thyroid Goiter, most recent US was 12/2017 REPRODUCTIVE HISTORY AND PERSONAL RISK ASSESSMENT FACTORS: Weight: Last 1 Encounter Wt Readings: Date: Wt: 10/24/2021 89.8 kg (198 lb) Height: Last 1 Encounter Ht Readings: Date: Ht: 10/04/2021 166.4 cm (5' 5.5) Uterus Intact: Yes Ovaries Intact: Yes SOCIAL HISTORY: Social History Tobacco Use Smoking status: Former Packs/day: 1.00 Years: 32.00 Pack years: 32.00 Types: Cigarettes Start date: 08/04/1983 Quit date: 08/07/2015 Years since quittin.2 Smokeless tobacco: Never Vaping Use Vaping Use: Never used Substance Use Topics Alcohol use: Yes Comment: Not weekly Drug use: No FAMILY HISTORY: We obtained a detailed, 4-generation family history. Significant diagnoses are listed below: FAMILY HISTORY Problem Relation Age of Onset Hypertension Mother Allergies Mother Cancer Father 57 lung-smoker COPD Sister None Sister Breast Cancer Paternal Grandmother 79 Cancer Paternal Grandmother 89 unknown abdominal cancer Colon Cancer Paternal Grandfather 66 Cancer Paternal Aunt 63 lung - smoker Breast Cancer Paternal Aunt 68 Renal Cell Cancer Paternal Uncle 65 Cancer Paternal Uncle 72 adrenal Breast Cancer Other 2 paternal great aunts, unknown ages Breast Cancer Paternal great-grandmother The patient's maternal ancestors are of [place] descent and paternal ancestors are of descent. There is no Ashkenazi Rastafari ancestry. There is no known consanguinity. A copy of the patient's pedigree will be available under the scanned documents tab following today's visit. GENETIC COUNSELING RISK ASSESSMENT, DISCUSSION, AND SUGGESTED FOLLOW UP: We reviewed the natural history and genetic etiology of sporadic, familial and hereditary cancer syndromes. The patient's personal and family history is potentially suggestive of: a hereditary cancer syndrome The patient meets NCCN HBOC testing criteria based on her personal history of breast cancer and 2 close relatives with breast or prostate cancer at any age. We discussed that identification of a hereditary cancer syndrome may help her care providers tailorher medical management. If a mutation is detected, the National Comprehensive Cancer Network and/[facility] opinion recommendations would include increased cancer surveillance and prophylactic surgeryoptions. If a mutation is detected, the patient will be referred back to the referring provider andto any additional appropriate care providers to discuss the relevant options. Inheritance of hereditary cancer syndromes was discussed with the patient. If a mutation is not found in the patient, this will decrease the likelihood of a hereditary cancersyndrome as the explanation for the patient's recent diagnosis of breast cancer. However, it cannotcompletely rule out this possibility. Cancer surveillance options would be discussed for the patient according to the appropriate standard National Comprehensive Cancer Network and [place] [employer] guidelines, with consideration of their personal and family history risk factors. In this case, the patient will be referred back to their care providers for discussions of management. Based on this assessment of the patient's family and personal history, genetic testing is recommended. The patient was offered Custom Cancer Panel through [facility]. After considering the risks, benefits, and limitations, the patient chose to pursue and provided informed consent for the following testing: Custom Cancer Panel through [facility]. The Custom Cancer Panel includes APC, IDANIA, AXIN2, BAP1, BARD1, BMPR1A, BRCA1, BRCA2, BRIP1, CDH1, CDK4, CDKN2A, CHEK2, CTNNA1, DDX41, DICER1, EPCAM, FH, FLCN, GREM1, HOXB13, MAX, MEN1, MET, MITF, MLH1, MSH2, MSH3, MSH6, MUTYH, NF1, NTHL1, PALB2, PMS2, POLD1, POLE, POT1, PTCH1, PTEN, RAD51C, RAD51D,RET, SDHA, SDHAF2, SDHB, SDHC, SDHD, SMAD4, SMARCA4, STK11, GTFV847, TP53, TSC1, TSC2, and VHL We discussed that an NGS panel can rarely result in an unexpected finding in a gene which may or may not be related to the presenting phenotype. We reviewed j carlosing at testing laboratory. Advised patient to contact laboratory immediately if they receive notification of an estimate and they have any concerns or questions about billing, in order to discuss options of cancellation, self pay, or financial assistance if applicable. [facility] sendsOOP estimates if cost is expected to be >$100. Per the patient's request, we will contact her by telephone to discuss these results. A follow up genetic counseling visit will be scheduled if requested. The patient was seen for a total of 35 minutes, greater than 50% of which was spent [id number]-[id number] counseling. This plan is being carried out per Dr. Maggie Garcia's recommendations. This note will also be sent to the referring provider via the electronic medical record. Rupa Chacon MS, [facility] Licensed, Certified Genetic Counselor EPIC CC: Dr. Amaya Garcia EDUCATIONAL INFORMATION SUPPLIED TO PATIENT AT ENCOUNTER: None INFORMATION TO BE MAILED TO PATIENT None documented in this encounterBrecksville [facility]08-24-[facility] History of Present illness Narrative* RT João(R) - 10/30/2021 1:00 PM EDT Radiology Service Progress Note PATIENT NAME: Rebeca Wilson DATE OF SERVICE: October 30, 2021 TIME: 12:49 PM PATIENT IDENTITY VERIFICATION COMPLETED USING TWO (2) IDENTIFIERS: Name and Date of confirmedby patient verbally. FALL SCREENING: Has the patient had 2 falls in the last year or 1 fall with injury or currently using an Ambulatory Assistive Device (Walker, Cane, Wheelchair, Crutches, etc.)? No PATIENT GENDER DATA: Female. status: : No status: NO. PATIENT RELEVANT IMPLANT DATA REVIEWED: Not Applicable RADIOLOGY DEPARTMENT: Bone Density PERIPHERAL IV DATA: Not applicable SIGNED BY: RT João(R) October 30, 2021 12:49 PM documented in this encounterBrecksville [facility]08-23-2022 Miscellaneous Notes* Telephone Encounter - Amaya Laureano - 10/29/2021 2:19 PM EDT Scheduled with Dr. Byrd as directed. Amaya Laureano * Telephone Encounter - Shaneka Salamanca - 10/25/2021 10:19 AM EDT Images from the original note were not included. Per note below: Gladis Byrd MD, MD Wstr Hem/Onc Psr 19 minutes ago (9:54 AM) Please schedule a follow-up with me in 3 weeks to discuss Oncotype Dx test score and possible NR BR-007 clinical trial. Thanks. PT scheduled as directed. Shaneka Salamanca documented in this encounterBrecksville [facility]08-18-[facility]22 History of Present illness Narrative* Caitlin Suarez MD - 10/24/2021 11:28 AM EDT Referring physician: Amaya Bravo DO Presenting complaint: Patient Rebeca Wilson returns for breast cancer. Cancer Staging Malignant neoplasm of 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, estrogen receptor positive (HCC) Staging form: Breast, AJCC 8th Edition - Pathologic stage from 10/24/2021: Stage IA (pT1b, pN0(sn), cM0, G2, ER+, AR+, HER2-) - Signed by Caitlin Suarez MD on 10/25/2021 ASSESSMENT: (C50.211, Z17.0) Malignant neoplasm of 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, estrogen receptor positive (HCC) (primary encounter diagnosis) Comment: Patient is a delightful 56 year old lady who developed abrasion at right upper breast, the site of her new bra strap clasp. She was seen by Dr. Edie Johnson on 06/26/2021 with notice of a dense right breast induration and erythema measuring 6 cm x 7 cm x 5 cm with excoriated skin with white fibrous tissue about 1 cm x 1.5 cm. This was treated as breast abscess. Diagnostic mammogram with ultrasound of breast on 07/17/2021 showed a round mass measuring 0.6 cm involving right breast at 1:00 position about 3 cm from the nipple. There was slight thickened single axillary lymph node measuring 0.4cm (normal appearance). The infectious abscess was not related to underlying breast lesion. Ultrasound guided Right breast core biopsy on 08/20/[address] [facility] revealed invasive mammary carcinoma with provisional grade 2 with ER+ status at 91-100%, AR+ status at 81-90%, HER2 negative status by IHC score 1+. Family history was positive for breast cancer in her paternal grandmother and maternal aunt x 2. The patient's father of lung cancer. Patient was with menarche age 14 years, age at of first child 19 years, menopause age 53years, no breast feeding. Plan: Patient underwent right breast GREGORY cloud systems architect localized lumpectomy and right sentinel lymph node biopsyon 10/07/2021. Pathology revealed invasive mammary carcinoma with mixed ductal and lobular features with [place] grade 2 measuring 7 mm in greatest dimension. There were surrounding breast parenchyma with ADH, fibrocystic changes and microcalcifications. Lymphovascular invasion was not identified.DCIS was not identified. Surgical margins were negative by at least 1.5 mm (medial margin). Two sentinel lymph node were negative for carcinoma (0/1). Oncotype DX Score was requested today. I noted patient is interested in participating in clinical trial NRG [id number]. I plan to meet with patient in 3 weeks via virtual visit on 11/15/2021. Patient is considered for adjuvant endocrine therapy with exemestane 25 mg daily x 5 years based on baseline arthralgias. There is pending DEXA scan to determine baseline bone density on 10/30/2021. Moderate complexity decision making/ counseling/care I spent 30 minutes in the visit, with more than 50% of the total gnfr-he-[id number] time of the visit in counseling / coordination of care. HPI: Patient underwent right breast GREGORY cloud systems architect localized lumpectomy and right sentinel lymph node biopsyon 10/07/2021. Pathology revealed invasive mammary carcinoma with mixed ductal and lobular features with [place] grade 2 measuring 7 mm in greatest dimension. There were surrounding breast parenchyma with ADH, fibrocystic changes and microcalcifications. Lymphovascular invasion was not identified.DCIS was not identified. Surgical margins were negative by at least 1.5 mm (medial margin). Two sentinel lymph node were negative for carcinoma (0/1). 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 Obese thyroid nodule PAST SURGICAL HISTORY Procedure Laterality Date BIOPSY THYROID 08/2013 COLONOSCOPY FLX DX W/COLLJ SPEC WHEN PFRMD 11/28/2016 COLONOSCOPY FLX DX W/COLLJ SPEC WHEN PFRMD 01/31/2020 TUBAL LIGATION, 1990 FAMILY HISTORY Problem Relation Age of Onset Hypertension Mother Allergies Mother Cancer Father lung-smoker COPD Sister None Sister Breast Cancer Paternal Grandmother Cancer Paternal Aunt lung & breast- smoker Breast Cancer Paternal Aunt Prostate Cancer Paternal Uncle Cancer Paternal Uncle adrenal SOCIAL HISTORY Social History Tobacco Use Smoking status: Former Packs/day: 1.00 Years: 32.00 Pack years: 32.00 Types: Cigarettes Start date: 08/04/1983 Quit date: 08/07/2015 Years since quittin.2 Smokeless tobacco: Never Vaping Use Vaping Use: Never used Substance Use Topics Alcohol use: Yes Comment: Not weekly Drug use: No ALLERGIES: ALLERGIES No Known Allergies MEDICATIONS: Current Outpatient Medications Medication Sig cyclobenzaprine (FLEXERIL) 10 mg tablet Take 0.5-1 tablets by mouth three times daily as needed formuscle spasm. meloxicam (MOBIC) 15 mg tablet Take 1 tablet by mouth once daily. buPROPion SR (WELLBUTRIN SR) 150 mg 12 hr tablet Take 1 tablet by mouth twice daily. omeprazole (PRILOSEC) 20 mg capsule Take 20 mg by mouth once daily. MULTI-VITAMIN ORAL Take by mouth once daily. fluticasone (FLONASE) 50 mcg/actuation nasal spray Use 2 Sprays in each nostril once daily. Rinse mouth after use. No current facility-administered medications for this visit. REVIEW OF SYSTEMS: Review of Systems Constitutional: Negative for chills and fatigue. HENT: Negative for mouth sores and trouble swallowing. Eyes: Negative for eye problems and icterus. Respiratory: Negative for chest tightness, cough, hemoptysis and shortness of breath. Cardiovascular: Negative for chest pain and palpitations. Gastrointestinal: Negative for abdominal pain and blood in stool. Endocrine: Negative for hot flashes. Genitourinary: Positive for bladder incontinence. Negative for difficulty urinating and hematuria. Urinary stress incontinence Musculoskeletal: Positive for arthralgias. Negative for back pain, gait problem and neck pain. Skin: Negative for itching, rash and wound. Neurological: Negative for gait problem and light-headedness. Hematological: Negative for adenopathy. Does not bruise/bleed easily. Psychiatric/Behavioral: Negative for decreased concentration and depression. PHYSICAL EXAMINATION: VITALS: BP 120/70 Pulse 76 Temp (Src) 98.2 (Temporal) Resp 16 Wt 196 lb 12.8 oz (89.3kg) SpO2 99[room air at rest]% LMP 07/28/2015 Physical Exam Vitals and nursing note reviewed. Constitutional: General: She is not in acute distress. Appearance: She is not toxic-appearing or diaphoretic. HENT: Head: Normocephalic and atraumatic. Eyes: General: No scleral icterus. Cardiovascular: Rate and Rhythm: Normal rate. Pulmonary: Effort: Pulmonary effort is normal. No respiratory distress. Abdominal: General: There is no distension. Musculoskeletal: General: No swelling. Cervical back: Neck supple. Skin: Coloration: Skin is not jaundiced or pale. Neurological: Mental Status: She is alert. Mental status is at baseline. Psychiatric: Mood and Affect: Mood normal. Behavior: Behavior normal. Thought Content: Thought content normal. Judgment: Judgment normal. LABS: 1. WBC Date Value Ref Range Status 06/17/2021 8.73 3.70 - 11.00 k/uL Final RBC Date Value Ref Range Status 06/17/2021 4.10 3.90 - 5.20 m/uL Final Hemoglobin Date Value Ref Range Status 06/17/2021 12.2 11.5 - 15.5 g/dL Final Hematocrit Date Value Ref Range Status 06/17/2021 38.6 36.0 - 46.0 % Final MCV Date Value Ref Range Status 06/17/2021 94.1 80.0 - 100.0 fL Final MCH Date Value Ref Range Status 06/17/2021 29.8 26.0 - 34.0 pg Final MCHC Date Value Ref Range Status 06/17/2021 31.6 30.5 - 36.0 g/dL Final RDW-CV Date Value Ref Range Status 06/17/2021 13.2 11.5 - 15.0 % Final Platelet Count Date Value Ref Range Status 06/17/2021 436 (H) 150 - 400 k/uL Final MPV Date Value Ref Range Status 06/17/2021 9.9 9.0 - 12.7 fL Final Abs Neut (ANC) Date Value Ref Range Status 08/13/2015 4.34 1.45 - 7.50 k/uL Final Lymph% Date Value Ref Range Status 08/13/2015 35.4 % Final Abs Lymph Date Value Ref Range Status 08/13/2015 2.65 1.00 - 4.00 k/uL Final [place]% Date Value Ref Range Status 08/13/2015 5.2 % Final Abs [place] Date Value Ref Range Status 08/13/2015 0.39 0.00 - 0.86 k/uL Final Abs Eosin Date Value Ref Range Status 08/13/2015 0.07 0.00 - 0.45 k/uL Final Baso% Date Value Ref Range Status 08/13/2015 0.5 % Final Abs Baso Date Value Ref Range Status 08/13/2015 0.04 0.00 - 0.10 k/uL Final 2. Glucose (mg/dL) Date Value 06/17/2021 100 08/13/2015 91 Potassium (mmol/L) Date Value 06/17/2021 3.9 08/13/2015 4.3 Sodium (mmol/L) Date Value 06/17/2021 141 08/13/2015 138 Chloride (mmol/L) Date Value 06/17/2021 102 08/13/2015 104 CO2 (mmol/L) Date Value 06/17/2021 27 08/13/2015 27 Creatinine (mg/dL) Date Value 06/17/2021 0.87 08/13/2015 0.79 BUN (mg/dL) Date Value 06/17/2021 13 08/13/2015 11 Anion Gap (mmol/L) Date Value 06/17/2021 12 08/13/2015 7 Calcium (mg/dL) Date Value 08/13/2015 8.8 Calcium, Total (mg/dL) Date Value 06/17/2021 9.4 Protein, Total (g/dL) Date Value 06/17/2021 7.2 08/13/2015 6.1 Albumin (g/dL) Date Value 06/17/2021 4.3 08/13/2015 4.2 Bilirubin, Total (mg/dL) Date Value 06/17/2021 0.5 08/13/2015 0.2 Alkaline Phosphatase (U/L) Date Value 06/17/2021 77 08/13/2015 40 AST (U/L) Date Value 06/17/2021 16 08/13/2015 16 ALT (U/L) Date Value 06/17/2021 18 08/13/2015 15 RADIOLOGICAL REPORTS: BILATERAL DIGITAL SCREENING MAMMOGRAM WITH CAD: 10/16/2020 HISTORY: Screening Mammogram, Encounter For / Screening Mammogram-Patient reports NO symptoms /priors available for comparison. RESULT: TECHNIQUE: The study was acquired using full field digital technology and interpreted from soft copy. Current study was also evaluated with a Computer Aided Detection (CAD). Comparison is made to exams dated: 12/09/2017 mammogram, 08/15/2015 mammogram, 05/15/2014 mammogram, and 10/27/2011 mammogram - [facility]. The tissue of both breasts is heterogeneously dense. This may lower the sensitivity of mammography. There is an asymmetry in the right breast upper inner aspect posterior depth. No other significant masses, calcifications, or other findings are seen in either breast. IMPRESSION: INCOMPLETE: NEEDS ADDITIONAL IMAGING EVALUATION The asymmetry in the right breast is indeterminate. Additional views are recommended. UNILATERAL RIGHT DIGITAL DIAGNOSTIC MAMMOGRAM TOMOSYNTHESIS WITH CAD: 07/17/2021 HISTORY: Abnormal MammogramCALL BACK RIGHT BREAST Abnormal Mammogram. RESULT: TECHNIQUE: The study was acquired using full field digital technology and interpreted from soft copy. Digital Breast Tomosynthesis (DBT) images were obtained and used to assist in the interpretation ofthis examination. Current study was also evaluated with a Computer Aided Detection (CAD). Comparison is made to exam dated: 10/16/2020 mammogram - [facility]. The tissue of right breast is heterogeneously dense. This may lower the sensitivity of mammography. There is a 6 mm round equal density mass with a spiculated margin in the right breast at 1 o'clock middle depth. No other significant masses or calcifications are seen in the breast. IMPRESSION: SUSPICIOUS FINDING - BIOPSY SHOULD BE CONSIDERED The 6 mm round equal density mass in the right breast is suspicious of malignancy. An ultrasound guided biopsy is recommended. LIMITED ULTRASOUND OF RIGHT BREAST AND AXILLA: 07/17/2021 RESULT: Comparison is made to exam dated: 10/16/2020 mammogram - [facility]. Color flow and real-time ultrasound of the right breast upper inner quadrant and axilla regions were performed. Triana scale images of the real-time examination were reviewed. There is 0.6 cm x 0.5 cm x 0.5 cm oval mass with a circumscribed margin in the right breast at 1 o'clock posterior depth 3 cm from the nipple. This oval mass is hypoechoic with internal echoes. This correlates with mammography findings. Colorflow imaging demonstrates that there is no vascularity present. There is slight thickening of a single axillary node at 4 mm. IMPRESSION: SUSPICIOUS FINDING - BIOPSY SHOULD BE CONSIDERED The 0.6 cm x 0.5 cm x 0.5 cm oval mass in the right breast is suspicious of malignancy. An ultrasound guided biopsy is recommended. HISTO PATHOLOGICAL REPORT: SURGICAL PATHOLOGY: [id number] Collected 08/20/2021 10:14 AM Status: Final result Component FINAL DIAGNOSIS A. Breast, right, 1:00, 3 cm from nipple, core biopsy: - Invasive mammary carcinoma, provisional histologic grade 2, (see comment). Diagnosis Comment Sections demonstrate an invasive carcinoma characterized by apparent rare tubule formation (3 points), moderate nuclear atypia (2 points) and low mitotic rate (1 point, 5 mitoses per 10 high-power santacruz), for a combined provisional Ephraim score of 6 (moderately differentiated, grade 2). The largest focus of invasive carcinoma is 6.5 mm. The morphologic pattern includes nests and cords, with focal apparent tubule formation, however an immunohistochemical stain for E-cadherin is negative in the invasive carcinoma; the histologic type may be better assessed on the resection specimen, thoughthe differential includes invasive lobular carcinoma and invasive carcinoma with mixed ductal and lobular features. (The E-cadherin stain was performed at [facility] and interpretedat [facility].) There is focal lobular neoplasia (either atypical lobular hyperplasia or lobularcarcinoma in situ), as demonstrated by the presence of [id number] myoepithelial cells. Immunohistochemical stains for ER and AR were performed with results in a linked report. HER-2 evaluation was performed at [facility] with results in a linked report. The case was reviewed by Dr. Tyson White, who agrees with this assessment. Breast Biomarkers (HER2 (ERBB2) by IHC) RESULTS: HER2 (ERBB2) IMMUNOHISTOCHEMISTRY ASSAY Interpretation: NEGATIVE for HER2 (ERBB2) Expression Score:1+ Percentage of cells with uniform intense complete membrane staining: N/A (reported for 2+ and 3+ scores only) RESULTS: Estrogen Receptor (ER) Positive 91-100 % Stain intensity: strong Internal controls: present and stained as expected External controls: appropriately stained Progesterone Receptor (AR) Positive 81-90 % Stain intensity: strong Internal controls: present and stained as expected External controls: appropriately stained Tissue Analyzed: Invasive carcinoma Tumor Grade: Breast Tumor Grade: Grade 2 SURGICAL PATHOLOGY: [id number] Collected 10/07/2021 FINAL DIAGNOSIS A. Right axilla, sentinel lymph nodes, excision: -Two lymph nodes, negative for metastatic carcinoma (0/2), (please see comment). B. Right breast, lumpectomy: - Invasive mammary carcinoma with mixed ductal and lobular features, Ephraim grade 2, measuring 7 mm in greatest dimension, (please see comment and synoptic report). 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 Right breast, anterior margin, excision: - Unremarkable breast parenchyma D. Right breast, posterior margin, excision: - Unremarkable breast parenchyma E. Right breast, superior margin, excision: - Unremarkable breast parenchyma F. Right breast, inferior margin, excision: - Unremarkable breast parenchyma G. Right breast, medial margin, excision: - Unremarkable breast parenchyma H. Right breast, lateral margin, excision: - Intraductal papilloma with usual ductal hyperplasia Diagnosis Comment: Part A - Immunohistochemistry for cytokeratin AE1/AE3 has been performed, which is negative for metastatic carcinoma. Part B - The specimen has been entirely submitted for histologic examination. While morphologicallythe invasive carcinoma demonstrates mixed ductal and lobular features, immunostains for E-cadherin and B-catenin demonstrate that the tumor is predominately lobular phenotype. A multiplex immunostainfor ADH5 (p63, CK7/18, CK5/14), was used in the evaluation of this material. The p63 and CK5/14 components show an absence of myoepithelial cells surrounding the glands of interest while these glandshave expression of CK7/18, supporting the diagnosis of invasive carcinoma. Similarly, SMMS1 shows loss of the myoepithelial cell layer. Please see separately submitted margins for additional information regarding the final margin status. Synoptic Report INVASIVE CARCINOMA OF THE BREAST: Resection 8th Edition - Protocol posted: 09/05/2020 INVASIVE CARCINOMA OF THE BREAST, RESECTION - A, B SPECIMEN Procedure Excision (less than total mastectomy) Specimen Laterality Right TUMOR Histologic Type Invasive carcinoma with mixed ductal and lobular features Histologic Grade ([place] Histologic Score) Glandular (Acinar) / Tubular Differentiation Score 3 Nuclear Pleomorphism Score 2 Mitotic Rate Score 1 Overall Grade Grade 2 (scores of 6 or 7) Tumor Size Greatest dimension of largest invasive focus (Millimeters): 7 mm Tumor Focality Single focus of invasive carcinoma Ductal Carcinoma In Situ (DCIS) Not identified Lymphovascular Invasion Not identified Treatment Effect in the Breast No known presurgical therapy MARGINS Margin Status for Invasive Carcinoma All margins negative for invasive carcinoma Distance from Invasive Carcinoma to Closest Margin 1.5 mm Closest Margin(s) to Invasive Carcinoma Medial REGIONAL LYMPH NODES Regional Lymph Node Status All regional lymph nodes negative for tumor Total Number of Lymph Nodes Examined (sentinel and non-sentinel) 2 Number of [place] Nodes Examined 2 PATHOLOGIC STAGE CLASSIFICATION (pTNM, AJCC 8th Edition) Reporting of pT, pN, and (when applicable) pM categories is based on information available to the pathologist at the time the report is issued. As per the AJCC (Chapter 1, 8th Ed.) it is the managingphysician's responsibility to establish the final pathologic stage based upon all pertinent information, including but potentially not limited to this pathology report. pT Category pT1b Regional Lymph Nodes Modifier (sn): [place] node(s) evaluated. pN Category pN0 Breast Biomarker Testing Performed on Previous Biopsy Estrogen Receptor (ER) Status Positive (greater than 10% of cells demonstrate nuclear positivity) Percentage of Cells with Nuclear Positivity 91-100% Breast Biomarker Testing Performed on Previous Biopsy Progesterone Receptor (PgR) Status Positive Percentage of Cells with Nuclear Positivity 81-90% Breast Biomarker Testing Performed on Previous Biopsy HER2 (by immunohistochemistry) Negative (Score 1+) Testing Performed on Comment(s) Tumor block: B3. The margin status in this synoptic report pertain the lumpectomy specimen only. Please see separately submitted margins for additional information regarding the final margin status. Caitlin Suarez MD Cc: DO Jose E Nguyen MD Daesung Lee, MD Liza D. Talampas, MD documented in this encounterBrecksville [facility] Nurse Note* Lilo Rock RN - 10/24/2021 9:57 AM EDT Images from the original note were not included. Radiation Therapy - Nursing Note (Follow-up) PATIENT NAME: Rebeca Wilson PATIENT October 24, 2021 [facility] FACILITY/LOCATION: [place] Reason for visit: Follow up to discuss treatment options. Subjective Data I am doing well, the surgery was not as bad as I thought it would be. My energy is returning. I will get a twinge in the right breast on and off. Additional Data Do you want to see a Smoke Tester? No Difficulty performing or completing routine daily living activities: No Nursing Assessment Fatigue: increased fatigue over baseline but not altering normal activities Appetite: fair Weight Gain/Loss: Yes Last 6 Encounter Wt Readings: Date: Wt: 10/24/2021 89.8 kg (198 lb) 10/04/2021 88.5 kg (195 lb) 09/26/2021 88.4 kg (194 lb 14.4 oz) 09/26/2021 88 kg (194 lb) 08/27/2021 89.4 kg (197 lb) 07/23/2021 89.4 kg (197 lb) Bowel Function: normal bowel movements Bone Pain: none Focused Assessment BREAST: Lymphedema Assessment: Is the patient having limited range of motion of effected arm? No Isthe patient currently receiving any preventative/active treatment for lymphedema? Yes has upcoming appointment Future Appointments Date Time Provider Department Center 10/24/2021 10:00 AM Jose E Bettencourt MD RADRST [facility] 10/24/2021 10:50 AM Caitlin Suarez MD HEMAST [facility] 10/30/2021 1:00 PM BONE DENSITY [facility] [place] 11/04/2021 11:30 AM OCTAVIA Mei GMINST [facility] 11/07/2021 11:00 AM LEOLA Luther/Amari OTSTST [facility] 12/20/2021 9:20 AM Akira Pierre MD INTMWS [facility] 04/23/2022 10:00 AM Dana Flores PA-C WMHLST [facility] 07/01/2022 8:40 AM Trina Jorgensen [facility] SIGNED by: iLlo Rock, RN documented in this encounterBrecksville [facility]08-[facility] History of Present illness Narrative* Jose E Bettencourt MD - 10/24/2021 8:18 AM EDT Radiation Oncology Follow Up Note PATIENT NAME: Rebeca Wilson PATIENT DIAGNOSIS: 56 year old woman with invasive mammary carcinoma of the right breast, UIQ, [id number], pT1bN0(sn) cM0, clinical prognostic Stage IA, pathologic prognostic Stage IA, s/p: Right partial mastectomy/SLNB 10/07/21 [IMC with IDC/ILC features, Gr II, 7 mm, margins-, additional margins-, LVI-, ER+(>90%)/AR+(81-90%)/HER2-; 0/2 SLN] INTERVAL HISTORY: Mrs. Wilson presented with an abrasion she thought due to her bra strap clasp ather right breast, upper aspect. She was seen by Dr. Edie Johnson on 06/26/2021 who noted a 6 to 7 x 5 cm area of dense induration/erythema at the right breast, upper aspect with excoriated skin aguilar roximately 1 x 1.5 cm with white fibrous tissue noted. She is managed for abscess. It was noted that she was due for mammography. Diagnostic mammogram with ultrasound on 07/17/2021 showed a 6 mm rounddensity mass in the right breast, suspicious of malignancy, located at the 1 o'clock position. Slight thickening with single axillary node at 4 mm was noted. Biopsy of the right breast lesion on 08/20/2021 showed invasive mammary carcinoma, provisional histologic grade 2, ER+(>90%)/AR+(81-90%)/HER2-. Dr. Bravo performed a right partial mastectomy with sentinel lymph node biopsy on 10/07/2021. She is to meet with Dr. Suarez today and has bone density testing scheduled for 10/30/2021. She has genetic counseling with Brittany Chacon on 11/04/2021 and breast rehabilitation scheduled for 11/07/2021 with Thu Cisneros. Her energy is improving. Notes occasional twinges of right breast discomfort. Her ROM is good. ALLERGIES No Known Allergies cyclobenzaprine (FLEXERIL) 10 mg tablet Take 0.5-1 tablets by mouth three times daily as needed formuscle spasm. meloxicam (MOBIC) 15 mg tablet Take 1 tablet by mouth once daily. buPROPion SR (WELLBUTRIN SR) 150 mg 12 hr tablet Take 1 tablet by mouth twice daily. omeprazole (PRILOSEC) 20 mg capsule Take 20 mg by mouth once daily. MULTI-VITAMIN ORAL Take by mouth once daily. fluticasone (FLONASE) 50 mcg/actuation nasal spray Use 2 Sprays in each nostril once daily. Rinse mouth after use. PHYSICAL EXAM: VS: Wt 89.8 kg (198 lb) LMP 07/28/2015 (Exact Date) BMI 32.45 kg/m KPS: 100 General Appearance: Alert and oriented. No acute distress. HEENT: NCAT. Sclera anicteric. EOMI. Remainder of exam deferred for discussion ASSESSMENT/PLAN: 56 year old woman with invasive mammary carcinoma of the right breast, UIQ, pK6oN2S3, pT1bN0(sn) cM0, clinical prognostic Stage IA, pathologic prognostic Stage IA, s/p: Right partial mastectomy/SLNB 10/07/21 [IMC with IDC/ILC features, Gr II, 7 mm, margins-, additional margins-, LVI-, ER+(>90%)/AR+(81-90%)/HER2-; 0/2 SLN] Mrs. Wilson has early stage left breast cancer. Given her age, screen detection, low grade, small size and wide margins, she is fitting with AZAM partial breast guidelines, thus we discussed partial breast versus whole breast irradiation with treatment per Marion et al. (Jinny, et al. Accelerated Partial Breast Irradiation: Executive summary for the update of an AZAM Evidence-Based Consensus Statement. Pract Radiat Oncol 2017 May - Jun;7(2):73-79. PMID: 25156236) (Accelerated Partial-Breast Irradiation Compared With Whole-Breast Irradiation for Early Breast Cancer: Long-Term Results of the Randomized Phase III KKWY-SMGO-Ndyqyaot Trial. JClin Oncol 2020 ;38(47):4624- 8013. PMID: 16508186). This study showed equivalent cancer control rates and survival with less acute and late toxicity. She lives in [place], [place] and would like treatment closer to home.Follow-up with Dr. Byrd will be requested for approximately 3 weeks, allowing time for Oncotype DX testing. This visit should be coordinated with clinical trials nursing as she is interested in participating in [facility] [id number] pending Oncotype DX testing results. Approximately 25 minutes were spent with the patient, >50% of which was spent on treatment counseling. Signed by: Jose E Bettencourt MD cc: MD Amaya Cortes DO Elnora Spradling, MD documented in this encounterBrecksville [facility]08-09-2022 History of Present illness Narrative* Dana Flores PA-C - 10/15/2021 9:00 AM EDT SERVICE DATE: 10/15/21 SURGERY DATE: 10/07/2021 POSTOPERATIVE VISIT #1 SUBJECTIVE: Rama is a year old year old female who is s/p a RIGHT breast GREGORY cloud systems architect localized lumpectomy, right sentinel lymph node mapping and biopsy performed by Dr. Bravo (Breast Surgeon) on 10/07/2021 She denies any redness, bruising, swelling or discharge from the incision. She denies any fever or chills. Pain of the surgical site is reported as minimal and intermittent.. OBJECTIVE: PHYSICAL EXAM: BREAST EXAMINATION: The patient was examined in the upright position. RIGHT breast soft, no dominant masses, nipple everted, no discharge, no skin changes. The juan carlos-areolar incision is healing well. RIGHT axilla no palpable lymphadenopathy, no evidence of lymphedema, and good range of motion Regional Lymph Nodes: There is no concerning supraclavicular, infraclavicular or cervical lymphadenopathy. SURGICAL PATHOLOGY: FINAL DIAGNOSIS A. Right axilla, sentinel lymph nodes, excision: -Two lymph nodes, negative for metastatic carcinoma (0/2), (please see comment). B. Right breast, lumpectomy: - Invasive mammary carcinoma with mixed ductal and lobular features, Ephraim grade 2, measuring 7 mm in greatest dimension, (please see comment and synoptic report). 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 Right breast, anterior margin, excision: - Unremarkable breast parenchyma D. Right breast, posterior margin, excision: - Unremarkable breast parenchyma E. Right breast, superior margin, excision: - Unremarkable breast parenchyma F. Right breast, inferior margin, excision: - Unremarkable breast parenchyma G. Right breast, medial margin, excision: - Unremarkable breast parenchyma H. Right breast, lateral margin, excision: - Intraductal papilloma with usual ductal hyperplasia PJM/JALOK 10/10/2021 Diagnosis Comment CCM Part A - Immunohistochemistry for cytokeratin AE1/AE3 has been performed, which is negative for metastatic carcinoma. Part B - The specimen has been entirely submitted for histologic examination. While morphologicallythe invasive carcinoma demonstrates mixed ductal and lobular features, immunostains for E-cadherin and B-catenin demonstrate that the tumor is predominately lobular phenotype. A multiplex immunostainfor ADH5 (p63, CK7/18, CK5/14), was used in the evaluation of this material. The p63 and CK5/14 components show an absence of myoepithelial cells surrounding the glands of interest while these glandshave expression of CK7/18, supporting the diagnosis of invasive carcinoma. Similarly, SMMS1 shows loss of the myoepithelial cell layer. Please see separately submitted margins for additional information regarding the final margin status. This case has been reviewed in consultation with Taylor Liu and Claus, of the [facility] breast pathology department, during consensus conference on 10/10/2021, who concur. Laboratory Developed Test (LDT) Disclaimer: Performance characteristics of immunohistochemical, immunofluorescent and chromogenic in-situ hybridization tests have been determined by the performing laboratory within [facility] [place] ([facility]), [facility], [facility] or [facility]) in a manner consistent with CLIA requirements. One or more of these tests have not been cleared or approved by the FDA. [facility] is regulated under CLIA as qualified to perform high-complexity testing. These tests are used for clinical purposes. They should not be regarded as investigational or for research. Positive and negative controls stain appropriately. Synoptic Report INVASIVE CARCINOMA OF THE BREAST: Resection 8th Edition - Protocol posted: 09/05/2020 INVASIVE CARCINOMA OF THE BREAST, RESECTION - A, B SPECIMEN Procedure Excision (less than total mastectomy) Specimen Laterality Right TUMOR Histologic Type Invasive carcinoma with mixed ductal and lobular features Histologic Grade ([place]ph[place] Histologic Score) Glandular (Acinar) / Tubular Differentiation Score 3 Nuclear Pleomorphism Score 2 Mitotic Rate Score 1 Overall Grade Grade 2 (scores of 6 or 7) Tumor Size Greatest dimension of largest invasive focus (Millimeters): 7 mm Tumor Focality Single focus of invasive carcinoma Ductal Carcinoma In Situ (DCIS) Not identified Lymphovascular Invasion Not identified Treatment Effect in the Breast No known presurgical therapy MARGINS Margin Status for Invasive Carcinoma All margins negative for invasive carcinoma Distance from Invasive Carcinoma to Closest Margin 1.5 mm Closest Margin(s) to Invasive Carcinoma Medial REGIONAL LYMPH NODES Regional Lymph Node Status All regional lymph nodes negative for tumor Total Number of Lymph Nodes Examined (sentinel and non-sentinel) 2 Number of [place] Nodes Examined 2 PATHOLOGIC STAGE CLASSIFICATION (pTNM, AJCC 8th Edition) Reporting of pT, pN, and (when applicable) pM categories is based on information available to the pathologist at the time the report is issued. As per the AJCC (Chapter 1, 8th Ed.) it is the managingphysician's responsibility to establish the final pathologic stage based upon all pertinent information, including but potentially not limited to this pathology report. pT Category pT1b Regional Lymph Nodes Modifier (sn): [place] node(s) evaluated. pN Category pN0 Breast Biomarker Testing Performed on Previous Biopsy Estrogen Receptor (ER) Status Positive (greater than 10% of cells demonstrate nuclear positivity) Percentage of Cells with Nuclear Positivity 91-100% Breast Biomarker Testing Performed on Previous Biopsy Progesterone Receptor (PgR) Status Positive Percentage of Cells with Nuclear Positivity 81-90% Breast Biomarker Testing Performed on Previous Biopsy HER2 (by immunohistochemistry) Negative (Score 1+) Testing Performed on Comment(s) Tumor block: B3. The margin status in this synoptic report pertain the lumpectomy specimen only. Please see separately submitted margins for additional information regarding the final margin status. ASSESSMENT: Rebeca Wilson, 56 year old year old female, s/p a RIGHT breast GREGORY cloud systems architect localized lumpectomy, right sentinel lymph node mapping and biopsy performed by Dr. Bravo (Breast Surgeon) on 10/07/2021 Final pathology reports Invasive mammary carcinoma with mixed ductal and lobular features, 7 mm (margins clear), Grade 2, 0/2 LN, -LVI ER+, AR+, HER2- PATHOLOGICAL STAGE RIGHT BREAST: p,T1b,N0 POST OPERATIVE STATUS: Uncomplicated post-operative course, She initially presented on 09/26/2021 with a RIGHT breast 6 mm invasive mammary cancer at 1:00, 3 cmFN[address] 4 mm but normal - no need for bx, per discussion with radiology. ER+AR+HER2- [id number] PLAN Pathology report reviewed by (Breast Surgeon) and discussed with the patient as well as her . All questions were answered and she had no further concerns. Instructions for wound management, the signs and symptoms of infection, and seroma development werereviewed with the patient. will follow-up with Dr. Suarez (Medical Oncologist) as scheduled, to discuss adjuvantsystemic therapy. She will follow-up with Dr. Jose E Bettencourt (Radiation Oncologist) as scheduled, to discuss adjuvant local therapy. Patient will schedule a consult with Thu Cisneros (O.T.) for lymphedema prevention strategies and education on range of motion management Genetic counseling is scheduled for 11/04/2021 will follow-up with us in 6 months. She has our names and numbers to stay in touch if she has any questions, concerns or problems in the interim. Dana Flores PA-C documented in this encounterB[facility] Nurse Note* Maria De Jesus Verma LPN - 10/15/2021 9:00 AM EDT Post op Did patient bring outside records to appt today? : No Last mammogram on: 10/02/2021 bilateral Results: see report Is the patient active on [employer] Yes Electronically Signed By: Maria De Jesus Verma LPN In Department: [facility] REVIEW OF PATIENT HISTORY: OB History T0 L3 SAB1 IAB1 Ectopic0 Multiple0 Live Births3 Comment: Menarche: 13; Age at 1st : 19; Post menopausal FAMILY HISTORY Problem Relation Age of Onset Hypertension Mother Allergies Mother Cancer Father lung-smoker COPD Sister None Sister Breast Cancer Paternal Grandmother Cancer Paternal Aunt lung & breast- smoker Breast Cancer Paternal Aunt Prostate Cancer Paternal Uncle Cancer Paternal Uncle adrenal 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 Obese thyroid nodule PAST SURGICAL HISTORY Procedure Laterality Date BIOPSY THYROID 08/2013 COLONOSCOPY FLX DX W/COLLJ SPEC WHEN PFRMD 11/28/2016 COLONOSCOPY FLX DX W/COLLJ SPEC WHEN PFRMD 01/31/2020 TUBAL LIGATION, 1990 Social History Tobacco Use Smoking status: Former Packs/day: 1.00 Years: 32.00 Pack years: 32.00 Types: Cigarettes Start date: 08/04/1983 Quit date: 08/07/2015 Years since quittin.1 Smokeless tobacco: Never Vaping Use Vaping Use: Never used Substance Use Topics Alcohol use: Yes Comment: Not weekly Drug use: No documented in this encounterB[facility] Miscellaneous Notes* Brief Op Note - Amaya Bravo DO - 10/07/2021 10:03 AM EDT BRIEF OPERATIVE / PROCEDURE NOTE LOG ID: [id number] SURGERY/PROCEDURE DATE: 10/07/2021 INCISION/PROCEDURE START TIME: 9:07 AM INCISION CLOSE/PROCEDURE END TIME: SURGEON(S)/PROCEDURALIST(S) AND TERRAZZO POLISHER HELPER(S): Surgeon(s) and Role: * Amaya Bravo DO - Primary * Keshawn Esquivel MD - Resident - Assisting SURGERY/PROCEDURE(S): RIGHT breast gregory cloud systems architect localized lumpectomy, SLNB ANESTHESIA: General FINDINGS: gregory and clip in specimen, 2 SLN ESTIMATED BLOOD LOSS: 10 mls SPECIMENS: 1. RIGHT breast tissue @ 1:00 2. RIGHT breast margins S/I/M/L/A/P 3. RIGHT SLN x2 COMPLICATIONS: None PRE-OP/PRE-PROCEDURE DIAGNOSIS: RIGHT breast cancer POST-OP/POST-PROCEDURE DIAGNOSIS: Same as Preop SIGNATURE: Amaya Bravo DO PATIENT NAME: Rebeca Wilson DATE: October 07, 2021 TIME: 10:03 AM documented in this encounterBrecksville [facility] History and physical note * Keshawn Esquivel MD - 10/07/2021 7:52 AM EDT UPDATED HISTORY AND PHYSICAL EXAMINATION SERVICE DATE: 10/07/2021 SERVICE TIME: 7:52 AM PHYSICAL EXAM MUST BE COMPLETED ON ADMISSION The History and Physical (completed in the past 30 days) has been reviewed and the patient has beenexamined. The contents accurately reflect the patient's condition with the following additions or revisions since the H&P was completed. Examination indicates no changes. This H&P can be found in the attached. SIGNATURE: Keshawn Esquivel MD PATIENT NAME: Rebeca Wilson DATE: October 07, 2021 TIME: 7:52 AM Associated attestation - Amaya Bravo DO - 10/07/2021 10:34 AM EDT Amaya Bravo DO Breast Surgeon * Janett Casey APRN.JADEN - 10/04/2021 9:03 AM EDT HISTORY AND PHYSICAL EXAMINATION SERVICE DATE: 10/04/2021 SERVICE TIME: 9:03 AM PRIMARY CARE PHYSICIAN: Akira Pierre MD REASON FOR VISIT: Rebeca Wilson is a 56 year old female who is scheduled for RIGHT breast gregory cloud systems architect localized lumpectomy, RIGHT sentinel lymph node mapping and biopsy at the request of Dr. Warner Bravo DO for consultation. My final recommendation will be communicated back to the requestingphysician by way of shared medical record or letter. Subjective The patient has the following: ACTIVE PROBLEM LIST Seborrheic Keratosis Arthralgia of hands Thyroid Nodule Nontoxic Multinodular Goiter Screening Mammogram, Encounter for Malignant Neoplasm of Upper-Inner Quadrant of Right Breast in Female, Estrogen Receptor Positive (Hcc) Family History of Breast Cancer Invasive Ductal Carcinoma of Breast, Right (Hcc) History of Covid-19 Gerd (Gastroesophageal Reflux Disease) Mood Disorder (Hcc) Obese COVID-19 Immunization Status Overdue - COVID-19 VACCINE (4 - Booster for Pfizer series) Overdue since 05/30/2021 01/30/2021 Imm Admin: COVID-19 vaccine, age 12+ yr (PFIZER-BIONTECH - PURPLE TOP) 03/21/2020 Imm Admin: COVID-19 vaccine, age 12+ yr (PFIZER-BIONTECH - PURPLE TOP) 02/29/2020 Imm Admin: COVID-19 vaccine, age 12+ yr (PFIZER-BIONTECH - PURPLE TOP) Patient reports being fully vaccinated against COVID-19. Patient reports a prior COVID-19 infection, with an infection date of 09/11/21 - Head congestion. CHIEF COMPLAINT: Pre-Op Exam HPI: 56 year old female presents with right invasive ductal carcinoma. Patient had abnormal mammogram October 2020. Further imaging as well as biopsy were completed with diagnosed invasive mammary carcinoma. Her paternal grandmother and 2 paternal aunts both had history of breast cancer. She had previous abscess near the top of her breast around the same time breast cancer was diagnosed but this was due to wearing a new bra. She denies any palpable lumps, nipple changes/drainage or breast tenderness. REVIEW OF SYSTEMS: General: No weight loss, malaise or fevers. Neurological: No history of TIA's, stroke, TRACK PRODUCTION ENGINEER tumor, impaired sensorium, hemiplegia, paraplegia orquadraplegia. No neurological symptoms or problems. Respiratory: Positive for: prior COVID-19 infection. Date of COVID-19 infection: 09/11/21 - Head congestion. Negative for: asthma, bronchitis, COPD, current cough, dyspnea, home oxygen, orthopnea, pneumonia within 6 weeks and obstructive sleep apnea. Cardiovascular: No history of HTN requiring medication, no history of angina, CHF, VA, cardiac surgery or stents. Denies rest pain, gangrene or revascularization/amputation for PVD. No history of cardiovascular symptoms or problems. GI: Positive for: GERD (Stable on Rx) Negative for: abdominal pain, dysphagia, diverticulitis, GI bleed <30 days, hepatitis, irritablebowel syndrome, inflammatory bowel disease, liver disease, nausea and vomiting. : No history of dysuria, frequency or incontinence, stones or chronic kidney disease. No difficulty urinating, nocturia > 1 time per night or hematuria. FIELD MACHINIST: Negative for abnormal vaginal bleeding, abnormal vaginal discharge. Endocrine: No history of diabetes. Has not taken steroids within the past 30 days. No history of endocrinological symptoms or problems. Hematology: No history of bleeding or clotting disorder. Patient is not taking anti-coagulation or platelet medications. No history of hematological symptoms or problems. Oncology: See HPI. Psych: Positive for: depression (Stable on Rx). Negative for: anxiety. Musculoskeletal: Positive for: joint pain (Knees - Mobic). Negative for: swelling. Skin: Negative for lesions, rash and itching. 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 Obese thyroid nodule PAST SURGICAL HISTORY Procedure Laterality Date BIOPSY THYROID 08/2013 COLONOSCOPY FLX DX W/COLLJ SPEC WHEN PFRMD 11/28/2016 COLONOSCOPY FLX DX W/COLLJ SPEC WHEN PFRMD 01/31/2020 TUBAL LIGATION, 1990 FAMILY HISTORY Problem Relation Age of Onset Hypertension Mother Allergies Mother Cancer Father lung-smoker COPD Sister None Sister Breast Cancer Paternal Grandmother Cancer Paternal Aunt lung & breast- smoker Breast Cancer Paternal Aunt Prostate Cancer Paternal Uncle Cancer Paternal Uncle adrenal Social History Tobacco Use Smoking status: Former Smoker Packs/day: 1.00 Years: 32.00 Pack years: 32.00 Types: Cigarettes Start date: 08/04/1983 Quit date: 08/07/2015 Years since quittin.1 Smokeless tobacco: Never Used Vaping Use Vaping Use: Never used Substance Use Topics Alcohol use: Yes Comment: Not weekly Drug use: No Prior to Admission medications as of 10/04/21 0921 Medication Sig Last Dose Taking cyclobenzaprine (FLEXERIL) 10 mg tablet Take 0.5-1 tablets by mouth three times daily as needed formuscle spasm. Taking Yes buPROPion SR (WELLBUTRIN SR) 150 mg 12 hr tablet Take 1 tablet by mouth twice daily. Taking Yes omeprazole (PRILOSEC) 20 mg capsule Take 20 mg by mouth once daily. Taking Yes fluticasone (FLONASE) 50 mcg/actuation nasal spray Use 2 Sprays in each nostril once daily. Rinse mouth after use. Taking Yes meloxicam (MOBIC) 15 mg tablet Take 1 tablet by mouth once daily. 10/02/2021 MULTI-VITAMIN ORAL Take by mouth once daily. 10/02/2021 No medication comments found. ALLERGIES No Known Allergies Objective PHYSICAL EXAM: General: alert and oriented and obese. Pertinent negatives noted - not distressed. Skin: normal color, no rash or lesions. HEENT: pupils equal round and pupils reactive to light. Pertinent negatives noted - no carotid bruit. Cardiovascular: regular rate and rhythm, normal S1 and S2, no rub, murmurs, or gallop. Respiratory: normal breath sounds, no wheezes or crackles. No chest wall deformity or tenderness. Abdomen: soft. Pertinent negatives noted - no hernia, no mass, not rigid and not tender. Extremities: no deformity, no edema or tenderness, no joint swelling or clubbing. Neurological: normal cognition and motor skills. Gait normal. No weakness or sensory deficit. PAIN ASSESSMENT: VITALS: BP 116/82 Pulse 68 Temp 98 Resp 16 Ht 5' 5.5 (1.66m) Wt 195 lb (88.5kg) SpO2 97% LMP07/28/2015 BMI 31.94 kg/(m^2). Diagnostic tests reviewed for today's visit: Lab Value Units Date High Low HB 12.2 g/dL 06/17/2021 15.5 11.5 HCT 38.6 % 06/17/2021 46.0 36.0 WBC 8.73 k/uL 06/17/2021 11.00 3.70 PLT 436 k/uL 06/17/2021 400 150 NA 141 mmol/L 06/17/2021 144 136 K 3.9 mmol/L 06/17/2021 5.1 3.7 GLUC 100 mg/dL 06/17/2021 99 74 BUN 13 mg/dL 06/17/2021 21 7 CREAT 0.87 mg/dL 06/17/2021 0.96 0.58 PTSEC No results within date range. INR No results within date range. APTT No results within date range. ALT 18 U/L 06/17/2021 38 7 AST 16 U/L 06/17/2021 35 13 TBILI 0.5 mg/dL 06/17/2021 1.3 0.2 TSH 0.971 mIU/L 06/17/2021 4.200 0.270 Lab Value Units Date High Low HCGQT No results within date range. UHCG No results within date range. HCG, BODY* No results within date range. Lab Value Units Date High Low ABORHD No results within date range. ABSCREEN No results within date range. No results found for: HBA1C No results found for this or any previous visit (from the past 8760 hour(s)). No results found for this or any previous visit (from the past 92887 hour(s)). Assessment Invasive ductal carcinoma of breast, right (HCC) Assessment: Abnormal mammogram 10/2020. Dx by biopsy. Scheduled for partial mastectomy. History of COVID-19 Assessment: Patient tested positive for COVID 09/11/21. Reports only symptom was head congestion. No fever or cough. Scheduled for 2nd booster after surgery. GERD (gastroesophageal reflux disease) Assessment: Symptoms currently stable on Rx. Mood disorder (HCC) Assessment: Started Wellbutrin to help quit smoking. Stopped and went into menopause. Mood disorder/depression with that so went back on. Currently stable on Rx. Obese Assessment: Body mass index is 31.96 kg/m . Lyle Activity Status Index: METS: Climb a flight of stairs or walk up a hill (5.50 METs) DASI Score: 5.5 Patient denies any chest pain or undue shortness of breath with the above physical activity. Clinical Frailty Scale: 3. Well, with treated comorbid disease STOP-Bang Score: Snores loudly Often feels tired, fatigued, or sleepy during the daytime Patient over 50 years old Has a large neck Has not been observed to stop breathing or choking/gasping during sleep Denies having high blood pressure BMI less than or equal to 35 kg/m^2 Non-male patient STOP-Bang Score: 4 [id number] Score: Age: <65 Sex: female CHF history: No Hypertension history: No Stroke/TIA/thromboembolism history: No Vascular disease history: No Diabetes history: No [id number] Score: 1 ASA Class: 2 ANESTHESIA FINDINGS: Intubation History: No prior intubation Significant Anesthesia Considerations: none Airway History: No prior intubation I - PHYSICAL EVALUATION AIRWAY Tracheostomy tube not present Mallampati: III. TM distance: >3 FB. Neck ROM: full ROM without neurological symptoms. Mouth opening: adequate. Short neck: yes. Thick neck: no DENTAL Dental findings: missing tooth/teeth. Dentures, upper: partial. II - ANESTHESIA PLAN ASA Score: 2 Anesthetic Plan: general Prepared for Surgery: optimally prepared for surgery. CONSULTS: Patient does not require consults for optimization at this time Planned Anesthetic: general The Following Tests/Procedures Have Been Initiated: No orders of the defined types were placed in this encounter. Instructions Given to Patient: Instructions located in the after visit summary. Patient given verbal and written preop instructions and voices comprehension and compliance. SIGNATURE: Janett Casey APRN.CNP PATIENT NAME: Rebeca Wilson DATE: October 04, 2021 TIME: 9:03 AM PAGER/CONTACT #: documented in this encounterBrec[facility] History of Present illness Narrative* Lourdes Rolon CNMT - 10/07/2021 7:30 AM EDT RADIOLOGY SERVICE PROGRESS NOTE SERVICE DATE: 10/07/2021 SERVICE TIME: 7:59 AM PATIENT IDENTITY VERIFICATION COMPLETED USING TWO (2) STANDARD IDENTIFIERS: Name and Date of confirmed by patient verbally FALL SCREENING: Has the patient had 2 falls in the last year or 1 fall with injury or currently using an Ambulatory Assistive Device (Walker, Cane, Wheelchair, Crutches, etc.)? No PATIENT GENDER DATA: .female : No ALLERGIES: Reviewed and unchanged MEDICATIONS REVIEWED: Not applicable PATIENT RELEVANT IMPLANT DATA REVIEWED: Not Applicable CREATININE: Creatinine Date Value Ref Range Status 06/17/2021 0.87 0.58 - 0.96 mg/dL Final 08/13/2015 0.79 0.70 - 1.40 mg/dL Final 07/13/2013 0.75 0.70 - 1.40 mg/dL Final Estimated Glomerular Filtration Rate Date Value Ref Range Status 06/17/2021 79 >=60 mL/min/1.73m Final Comment: Estimated Glomerular Filtration Rate (eGFR) is calculated using the 2020 CKD-EPI creatinine equation. This equation utilizes serum creatinine, sex, and age as parameters. The creatinine assay has traceable calibration to isotope dilution- mass spectrometry. Refer to KDIGO guidelines for clinical interpretation. In patients with unstable renal function, e.g. those with acute kidney injury, the eGFRmay not accurately reflect actual GFR. eGFR- Date Value Ref Range Status 08/13/2015 >60 Final P.O.C.T. RESULTS: N/A October 07, [address] PERFORMED: No IV SITE: NM only - not applicable, oral or physician administered agents given to patient POST EXAM PIV STATUS: Not applicable PROCEDURE TYPE: NM INJECT: NM [place] Node. 474.9 microcuries Tc99m SULFUR COLLOID . Lidocaine Injected prior to NM injection. ADMINISTRATION TIME: 7:[address] Trevino PATIENT DISCHARGED TO: Ambulatory patient, left NM department area. A Diagnostic radioactive procedure has taken place, with no further precautions necessary other than routine body substance precautions. More information regarding radiation safety can be found usingthis link: [email or web address] SIGNATURE: NEREIDA Espinosa PATIENT NAME: Rebeca Wilson DATE: October 07, 2021 TIME: 7:59 AM PAGER/CONTACT #: documented in this encounterBrecksville [facility] History and physical note * Janett Casey APRN.BANK ANALYST - 10/04/2021 9:03 AM EDT HISTORY AND PHYSICAL EXAMINATION SERVICE DATE: 10/04/2021 SERVICE TIME: 9:03 AM PRIMARY CARE PHYSICIAN: Akira Pierre MD REASON FOR VISIT: Rebeca Wilson is a 56 year old female who is scheduled for RIGHT breast gregory cloud systems architect localized lumpectomy, RIGHT sentinel lymph node mapping and biopsy at the request of Dr. Warner Bravo DO for consultation. My final recommendation will be communicated back to the requestingphysician by way of shared medical record or letter. Subjective The patient has the following: ACTIVE PROBLEM LIST Seborrheic Keratosis Arthralgia of hands Thyroid Nodule Nontoxic Multinodular Goiter Screening Mammogram, Encounter for Malignant Neoplasm of Upper-Inner Quadrant of Right Breast in Female, Estrogen Receptor Positive (Hcc) Family History of Breast Cancer Invasive Ductal Carcinoma of Breast, Right (Hcc) History of Covid-19 Gerd (Gastroesophageal Reflux Disease) Mood Disorder (Hcc) Obese COVID-19 Immunization Status Overdue - COVID-19 VACCINE (4 - Booster for Pfizer series) Overdue since 05/30/2021 01/30/2021 Imm Admin: COVID-19 vaccine, age 12+ yr (PFIZER-BIONTECH - PURPLE TOP) 03/21/2020 Imm Admin: COVID-19 vaccine, age 12+ yr (PFIZER-BIONTECH - PURPLE TOP) 02/29/2020 Imm Admin: COVID-19 vaccine, age 12+ yr (PFIZER-BIONTECH - PURPLE TOP) Patient reports being fully vaccinated against COVID-19. Patient reports a prior COVID-19 infection, with an infection date of 09/11/21 - Head congestion. CHIEF COMPLAINT: Pre-Op Exam HPI: 56 year old female presents with right invasive ductal carcinoma. Patient had abnormal mammogram October 2020. Further imaging as well as biopsy were completed with diagnosed invasive mammary carcinoma. Her paternal grandmother and 2 paternal aunts both had history of breast cancer. She had previous abscess near the top of her breast around the same time breast cancer was diagnosed but this was due to wearing a new bra. She denies any palpable lumps, nipple changes/drainage or breast tenderness. REVIEW OF SYSTEMS: General: No weight loss, malaise or fevers. Neurological: No history of TIA's, stroke, TRACK PRODUCTION ENGINEER tumor, impaired sensorium, hemiplegia, paraplegia orquadraplegia. No neurological symptoms or problems. Respiratory: Positive for: prior COVID-19 infection. Date of COVID-19 infection: 09/11/21 - Head congestion. Negative for: asthma, bronchitis, COPD, current cough, dyspnea, home oxygen, orthopnea, pneumonia within 6 weeks and obstructive sleep apnea. Cardiovascular: No history of HTN requiring medication, no history of angina, CHF, VA, cardiac surgery or stents. Denies rest pain, gangrene or revascularization/amputation for PVD. No history of cardiovascular symptoms or problems. GI: Positive for: GERD (Stable on Rx) Negative for: abdominal pain, dysphagia, diverticulitis, GI bleed <30 days, hepatitis, irritablebowel syndrome, inflammatory bowel disease, liver disease, nausea and vomiting. : No history of dysuria, frequency or incontinence, stones or chronic kidney disease. No difficulty urinating, nocturia > 1 time per night or hematuria. FIELD MACHINIST: Negative for abnormal vaginal bleeding, abnormal vaginal discharge. Endocrine: No history of diabetes. Has not taken steroids within the past 30 days. No history of endocrinological symptoms or problems. Hematology: No history of bleeding or clotting disorder. Patient is not taking anti-coagulation or platelet medications. No history of hematological symptoms or problems. Oncology: See HPI. Psych: Positive for: depression (Stable on Rx). Negative for: anxiety. Musculoskeletal: Positive for: joint pain (Knees - Mobic). Negative for: swelling. Skin: Negative for lesions, rash and itching. 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 Obese thyroid nodule PAST SURGICAL HISTORY Procedure Laterality Date BIOPSY THYROID 08/2013 COLONOSCOPY FLX DX W/COLLJ SPEC WHEN PFRMD 11/28/2016 COLONOSCOPY FLX DX W/COLLJ SPEC WHEN PFRMD 01/31/2020 TUBAL LIGATION, 1990 FAMILY HISTORY Problem Relation Age of Onset Hypertension Mother Allergies Mother Cancer Father lung-smoker COPD Sister None Sister Breast Cancer Paternal Grandmother Cancer Paternal Aunt lung & breast- smoker Breast Cancer Paternal Aunt Prostate Cancer Paternal Uncle Cancer Paternal Uncle adrenal Social History Tobacco Use Smoking status: Former Smoker Packs/day: 1.00 Years: 32.00 Pack years: 32.00 Types: Cigarettes Start date: 08/04/1983 Quit date: 08/07/2015 Years since quittin.1 Smokeless tobacco: Never Used Vaping Use Vaping Use: Never used Substance Use Topics Alcohol use: Yes Comment: Not weekly Drug use: No Prior to Admission medications as of 10/04/21 0921 Medication Sig Last Dose Taking cyclobenzaprine (FLEXERIL) 10 mg tablet Take 0.5-1 tablets by mouth three times daily as needed formuscle spasm. Taking Yes buPROPion SR (WELLBUTRIN SR) 150 mg 12 hr tablet Take 1 tablet by mouth twice daily. Taking Yes omeprazole (PRILOSEC) 20 mg capsule Take 20 mg by mouth once daily. Taking Yes fluticasone (FLONASE) 50 mcg/actuation nasal spray Use 2 Sprays in each nostril once daily. Rinse mouth after use. Taking Yes meloxicam (MOBIC) 15 mg tablet Take 1 tablet by mouth once daily. 10/02/2021 MULTI-VITAMIN ORAL Take by mouth once daily. 10/02/2021 No medication comments found. ALLERGIES No Known Allergies Objective PHYSICAL EXAM: General: alert and oriented and obese. Pertinent negatives noted - not distressed. Skin: normal color, no rash or lesions. HEENT: pupils equal round and pupils reactive to light. Pertinent negatives noted - no carotid bruit. Cardiovascular: regular rate and rhythm, normal S1 and S2, no rub, murmurs, or gallop. Respiratory: normal breath sounds, no wheezes or crackles. No chest wall deformity or tenderness. Abdomen: soft. Pertinent negatives noted - no hernia, no mass, not rigid and not tender. Extremities: no deformity, no edema or tenderness, no joint swelling or clubbing. Neurological: normal cognition and motor skills. Gait normal. No weakness or sensory deficit. PAIN ASSESSMENT: VITALS: BP 116/82 Pulse 68 Temp 98 Resp 16 Ht 5' 5.5 (1.66m) Wt 195 lb (88.5kg) SpO2 97% LMP07/28/2015 BMI 31.94 kg/(m^2). Diagnostic tests reviewed for today's visit: Lab Value Units Date High Low HB 12.2 g/dL 06/17/2021 15.5 11.5 HCT 38.6 % 06/17/2021 46.0 36.0 WBC 8.73 k/uL 06/17/2021 11.00 3.70 PLT 436 k/uL 06/17/2021 400 150 NA 141 mmol/L 06/17/2021 144 136 K 3.9 mmol/L 06/17/2021 5.1 3.7 GLUC 100 mg/dL 06/17/2021 99 74 BUN 13 mg/dL 06/17/2021 21 7 CREAT 0.87 mg/dL 06/17/2021 0.96 0.58 PTSEC No results within date range. INR No results within date range. APTT No results within date range. ALT 18 U/L 06/17/2021 38 7 AST 16 U/L 06/17/2021 35 13 TBILI 0.5 mg/dL 06/17/2021 1.3 0.2 TSH 0.971 mIU/L 06/17/2021 4.200 0.270 Lab Value Units Date High Low HCGQT No results within date range. UHCG No results within date range. HCG, BODY* No results within date range. Lab Value Units Date High Low ABORHD No results within date range. ABSCREEN No results within date range. No results found for: HBA1C No results found for this or any previous visit (from the past 8760 hour(s)). No results found for this or any previous visit (from the past 95913 hour(s)). Assessment Invasive ductal carcinoma of breast, right (HCC) Assessment: Abnormal mammogram 10/2020. Dx by biopsy. Scheduled for partial mastectomy. History of COVID-19 Assessment: Patient tested positive for COVID 09/11/21. Reports only symptom was head congestion. No fever or cough. Scheduled for 2nd booster after surgery. GERD (gastroesophageal reflux disease) Assessment: Symptoms currently stable on Rx. Mood disorder (HCC) Assessment: Started Wellbutrin to help quit smoking. Stopped and went into menopause. Mood disorder/depression with that so went back on. Currently stable on Rx. Obese Assessment: Body mass index is 31.96 kg/m . Lyle Activity Status Index: METS: Climb a flight of stairs or walk up a hill (5.50 METs) DASI Score: 5.5 Patient denies any chest pain or undue shortness of breath with the above physical activity. Clinical Frailty Scale: 3. Well, with treated comorbid disease STOP-Bang Score: Snores loudly Often feels tired, fatigued, or sleepy during the daytime Patient over 50 years old Has a large neck Has not been observed to stop breathing or choking/gasping during sleep Denies having high blood pressure BMI less than or equal to 35 kg/m^2 Non-male patient STOP-Bang Score: 4 [id number] Score: Age: <65 Sex: female CHF history: No Hypertension history: No Stroke/TIA/thromboembolism history: No Vascular disease history: No Diabetes history: No [id number] Score: 1 ASA Class: 2 ANESTHESIA FINDINGS: Intubation History: No prior intubation Significant Anesthesia Considerations: none Airway History: No prior intubation I - PHYSICAL EVALUATION AIRWAY Tracheostomy tube not present Mallampati: III. TM distance: >3 FB. Neck ROM: full ROM without neurological symptoms. Mouth opening: adequate. Short neck: yes. Thick neck: no DENTAL Dental findings: missing tooth/teeth. Dentures, upper: partial. II - ANESTHESIA PLAN ASA Score: 2 Anesthetic Plan: general Prepared for Surgery: optimally prepared for surgery. CONSULTS: Patient does not require consults for optimization at this time Planned Anesthetic: general The Following Tests/Procedures Have Been Initiated: No orders of the defined types were placed in this encounter. Instructions Given to Patient: Instructions located in the after visit summary. Patient given verbal and written preop instructions and voices comprehension and compliance. SIGNATURE: Janett Casey APRN.CNP PATIENT NAME: Rebeca Wilson DATE: October 04, 2021 TIME: 9:03 AM PAGER/CONTACT #: documented in this encounterB[facility] Instructions* Patient Instructions* Janett Casey APRN.CNP - 10/04/2021 9:02 AM EDT PATIENT PREOPERATIVE INSTRUCTIONS Amaya Bravo DO has scheduled you for your procedure at this surgery center: [facility]: [phone] --[id number] [place] [address]. Please read below carefully for your personalized instructions. Dietary Restrictions: - No solid food after midnight. - You may have 12 ounces of clear liquids (water, clear juices such as apple juice or gatorade, carbonated beverages, clear tea, black coffee, jello) until 2 hours before scheduled arrival at facility. - Do not drink any alcohol after midnight the night before your surgery. Medications: Unless instructed differently below, stay on all of your medications until your surgery. Approved medications to take the morning of surgery with a sip of water: Wellbutrin and Prilosec If you start any new medications after today's visit, please contact the surgeon's office. Blood Thinning Medications: - Stop NSAIDS (Ibuprofen, Advil, Aleve, Motrin, Celebrex, Mobic, etc.) 7 days before surgery, as directed by your surgeon. - Stop Aspirin 7 days before surgery, as directed by your surgeon. - Stop Vitamin E, ALL multi-vitamins, herbals and dietary supplements 7 days before surgery. - You may take Tylenol (Acetaminophen) or any of your pain medications that do not contain aspirin or NSAIDS as needed. Important Reminders: - Candy, mints, and tobacco products are NOT permitted the morning of surgery. - Hearing aids, dentures and glasses may be worn the morning of surgery. - NO jewelry, body piercings, makeup, hairpins or contacts are to be worn the day of surgery. If you develop symptoms such as a fever, cold, or flu, or have other changes to your health within TWO DAYS of scheduled surgery or the morning of surgery, please contact the surgery center above. Personal Belongings: -Please have photo ID and insurance cards. -If you do not have a copy of advance directives on file with us, please bring a copy with you on the day of surgery. - Leave ALL valuables and money at home or with family members. For Outpatient Procedures: - YOU MUST HAVE A RESPONSIBLE CARE ATTENDANT TAKE YOU HOME. A STRATEGIC PLANNER OR MANAGER GROUP HOME CANNOT BE MADE A RESPONSIBLE CARE ATTENDANT. - We recommend that a responsible person stays with you overnight to take care of you. - You cannot stay in a hotel alone after outpatient surgery. You will not be permitted to have yoursurgery, if you do not have someone to take care of you. Arrival Time for Surgery: - The Surgery Center or hospital where you are having surgery will call the afternoon before surgery (or Thursday for Thursday surgery) with a scheduled arrival time. - If you have not heard by 4 pm, please contact the surgery center above. Please be aware that emergency situations arise, which may delay or change your surgical time. If this happens, we will notify you as soon as possible and regret any inconvenience. If you already have an Advance Directive, please fax a copy to [phone] or email to for it to be added to your chart. If you do not have an Advance Directive, you can find the appropriate form and more information at [email or web address]. We recommend that youcomplete the Advance Directive form found on the website and bring it with you the day of your surgery. It can be witnessed and scanned into your chart that day. Janett Caesy APRN.CNP documented in this encounterBrecksville [facility] NoteIMPRESSION: POST PROCEDURE MAMMOGRAM FOR MARKER PLACEMENT There is no mammographic evidence of malignancy in the left breast. There was a successful marker clip placement in the right breast posterior depth. SUMMARY: The patient is under the care of Dr. Bravo. Kenyetta Trevino M.D., cp/morales:10/02/2021 15:30:19 Crib Pad Maker(s): RT Tanisha(R)(M), [facility] Mammogram BI-RADS: Post-procedure mammogram for marker placement Multiple national specialty organizations have released breast cancer screening guidelines for women at average risk for developing breast cancer - guidelines that are based on both evidence and opinion, yet differ on when to start and how often to screen for breast cancer. With representation from Breast Imaging, Internal Medicine, Women's Health, Family Medicine, and Medical/Surgical Oncology, the [facility] has carefully reviewed the data and reached the following consensus: 1) All women should engage in shared decision-making with their providers to decide when to start and how often to screen; 2) All women should have the opportunity to start screening mammography at age 40; 3) For women ages 45-55, we recommend annual screening mammograms; 4) For women ages 55 and over, we support both the transition from an annual to a biennial interval if this aligns more with patient's values and preferences, or continuation with annual screening; 5) All women should discuss with their providers when to stop screening mammograms. 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, RIGHT sentinel lymph node mapping and biopsy READINESS TO LEARN COGNITIVE ABILITY: Alert and oriented MOTIVATION TO LEARN: Interested FAMILY SUPPORT: Low - Inconsistent family involvement INSTRUCTION PROVIDED TO: Patient PATIENT LEARNS BEST BY: Multiple Methods FACTORS AFFECTING LEARNING: None PHYSICAL LIMITATIONS AFFECTING LEARNING: None LEARNING RESPONSE DIAGNOSIS: C50.211 METHOD OF INSTRUCTION: Individual instruction Written instruction - handouts Verbal instruction PATIENT / FAMILY RESPONSE: Verbalizes understanding of: INFECTION MANAGEMENT- Signs and symptoms of an infection and importance of contacting the physician MEDICATION PRESCRIBED-Accurate knowledge of prescribed medication prior to discharge MEDICATION ROUTE-Correct route for administration of the prescribed medication MEDICATION SIDE EFFECTS-Side effects associated with the medication that warrant a call to the physician PAIN MANAGEMENT-Effective strategies to manage pain in addition to pain medication PHYSICAL RESTRICTIONS-Physical restrictions and recommendations after discharge from the hospital POST-OPERATIVE INSTRUCTIONS-Correct actions to take to reduce postoperative complications PRE-OPERATIVE INSTRUCTIONS-Correct action to take to follow pre-operative instructions SYMPTOM MANAGEMENT-Correct actions to take to manage symptoms associated with his/her disease/illness VTE prevention measures WORSENING CONDITION-Signs and symptoms of a worsening condition that warrant a call to the physician WOUND CARE-Correct procedure to perform wound care Per Breast Center guidelines the patient was given the Hibiclens liquid, and was given written instructions which include instructions to not use on the face or near the eyes or genital area. The instructions were reviewed with the patient verbalized understanding the instructions. FOLLOW-UP PLAN: Patient instructed to call with any further issues SUPPLEMENTAL MATERIAL: Your Surgical Guide for Outpatient Surgery Centers REFERRAL (RECOMMENDATION): None Electronically Signed By: Maria De Jesus Verma LPN In Department: [facility] Time spent on patient education: 15 minutes. documented in this encounterBrec[facility]ville [facility]07-[facility] Instructions* Patient Education - Traci Christopher RT(R) - 10/02/2021 2:18 PM EDT Verbal post procedure instructions were given to the patient. [facility] Miscellaneous Notes* Patient Education - Traci Christopher RT(R) - 10/02/2021 2:18 PM EDT Verbal post procedure instructions were given to the patient. documented in this encounterBrec[facility]ville [facility] Instructions* Patient Instructions* Caitlin Suarez MD - 09/26/2021 12:14 PM EDT BONE MINERAL DENSITY PATIENT INSTRUCTIONS Bone mineral density testing measures the amount of calcium in certain parts of your bones. This information determines how strong your bones are. The test is used to detect osteoporosis, a disease in which the bone's mineral content and density are low, increasing a person's risk of fractures. Thelumbar spine (lower back) and the hip are the skeletal sites usually examined. For the test, remember that: 1. You cannot take this test if you are . 2. Eat a normal diet on the day of the test. 3. Take your medications as you normally would. 4. DO NOT take calcium supplements (such as Tums) for 24 hours before the test. 5. On the day of the test, leave valuables (jewelry or credit cards) at home. 6. The test should be performed prior to oral, rectal or IV contrast studies, or at least 7 days after any of these studies. For the test, you may be asked to wear a hospital gown. You will lie on your back, on a padded table, in a comfortable position. Generally, you can resume your usual activities immediately. documented in this encounterBrecksville [facility]07[facility] History of Present illness Narrative* Caitlin Suarez MD - 09/26/2021 12:11 PM EDT Consultation requested by Dr. Amaya Bravo for an opinion regarding breast cancer. My final recommendations will be communicated back to the requesting physician by way of shared Medical record or letter to requesting physician via US mail. Presenting complaint: Patient Rebeca Wilson was sent to my office to be evaluated for breast cancer. ASSESSMENT: (C50.211, Z17.0) Malignant neoplasm of 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, estrogen receptor positive (HCC) (primary encounter diagnosis) Comment: Patient is a delightful 56 year old lady who developed abrasion at right upper breast, the site of her new bra strap clasp. She was seen by Dr. Edie Johnson on 06/26/2021 with notice of a dense right breast induration and erythema measuring 6 cm x 7 cm x 5 cm with excoriated skin with white fibrous tissue about 1 cm x 1.5 cm. This was treated as breast abscess. Diagnostic mammogram with ultrasound of breast on 07/17/2021 showed a round mass measuring 0.6 cm involving right breast at 1:00 position about 3 cm from the nipple. There was slight thickened single axillary lymph node measuring 0.4cm (normal appearance). The infectious abscess was not related to underlying breast lesion. Ultrasound guided Right breast core biopsy on 08/20/[address] [facility] revealed invasive mammary carcinoma with provisional grade 2 with ER+ status at 91-100%, AR+ status at 81-90%, HER2 negative status by IHC score 1+. Family history was positive for breast cancer in her paternal grandmother and maternal aunt x 2. The patient's father of lung cancer. Patient was with menarche age 14 years, age at of first child 19 years, menopause age 53years, no breast feeding. Patient met today with Dr. Amaya Bravo with breast surgery and Dr. Jose E Bettencourt with radiation oncology. Plan: I discussed preliminary diagnosis of clinical prognostic stage IA ([id number]) invasive mammary carcinoma with favorable hormone positive HER2 negative predictive and prognostic characteristics. I agree with definitive breast surgery. I note plan for lumpectomy of right breast with sentinel lymph node after screening left mammogram. Her last left mammogram was in October of last year. I discussed role of Oncotype DX testing. I discussed role of adjuvant endocrine therapy with aromatase inhibitor herapy. She has no baseline DEXA scan. Plan to obtain DEXA scan. Plan to finalize medical oncology recommendation after final pathology. (Z13.820) Encounter for screening for osteoporosis (Z78.0) Asymptomatic postmenopausal status Comment: no baseline bone density assessment. Plan: DXA-AXIAL SKELETON Follow-up after breast surgery High complexity decision making/ counseling/ care I spent 60 minutes in the visit, with more than 50% of the total [id number] time of the visit in counseling / coordination of care. HPI: Patient is a delightful 56 year old lady who developed abrasion at right upper breast, the site of her new bra strap clasp. She was seen by Dr. Edie Johnson on 06/26/2021 with notice of a dense right breast induration and erythema measuring 6 cm x 7 cm x 5 cm with excoriated skin with white fibrous tissue about 1 cm x 1.5 cm. This was treated as breast abscess. Diagnostic mammogram with ultrasound of breast on 07/17/2021 showed a round mass measuring 0.6 cm involving right breast at 1:00 position about 3 cm from the nipple. There was slight thickened single axillary lymph node measuring 0.4cm (normal appearance). The infectious abscess was not related to underlying breast lesion. Ultrasound guided Right breast core biopsy on 08/20/[address] [facility] revealed invasive mammary carcinoma with provisional grade 2 with ER+ status at 91-100%, AR+ status at 81-90%, HER2 negative status by IHC score 1+. Family history was positive for breast cancer in her paternal grandmother and maternal aunt x 2. The patient's father of lung cancer. Patient was with menarche age 14 years, age at of first child 19 years, menopause age 53years, no breast feeding. Patient met today with Dr. Amaya Bravo with breast surgery and Dr. Jose E Bettencourt with radiation oncology. 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 thyroid nodule PAST SURGICAL HISTORY Procedure Laterality Date COLONOSCOPY FLX DX W/COLLJ SPEC WHEN PFRMD 11/28/2016 Colonoscopy COLONOSCOPY FLX DX W/COLLJ SPEC WHEN PFRMD 01/31/2020 Colonoscopy PAST SURGICAL HISTORY OF 08/2013 biopsy of thyroid TUBAL LIGATION, 89 FAMILY HISTORY Problem Relation Age of Onset Hypertension Mother Allergies Mother Cancer Father lung-smoker COPD Sister None Sister Breast Cancer Paternal Grandmother Cancer Paternal Aunt lung & breast- smoker Breast Cancer Paternal Aunt Prostate Cancer Paternal Uncle Cancer Paternal Uncle adrenal SOCIAL HISTORY Social History Tobacco Use Smoking status: Former Smoker Packs/day: 1.00 Start date: 08/04/1983 Quit date: 08/07/2015 Years since quittin.1 Smokeless tobacco: Never Used Vaping Use Vaping Use: Never used Substance Use Topics Alcohol use: Yes Comment: social Drug use: No ALLERGIES: ALLERGIES No Known Allergies MEDICATIONS: Current Outpatient Medications Medication Sig cyclobenzaprine (FLEXERIL) 10 mg tablet Take 0.5-1 tablets by mouth three times daily as needed formuscle spasm. meloxicam (MOBIC) 15 mg tablet Take 1 tablet by mouth once daily. buPROPion SR (WELLBUTRIN SR) 150 mg 12 hr tablet Take 1 tablet by mouth twice daily. omeprazole (PRILOSEC) 20 mg capsule Take 20 mg by mouth once daily. MULTI-VITAMIN ORAL Take by mouth once daily. fluticasone (FLONASE) 50 mcg/actuation nasal spray Use 2 Sprays in each nostril once daily. Rinse mouth after use. No current facility-administered medications for this visit. REVIEW OF SYSTEMS: Review of Systems Constitutional: Negative for chills and fatigue. HENT: Negative for mouth sores and trouble swallowing. Eyes: Negative for eye problems and icterus. Respiratory: Negative for chest tightness, cough, hemoptysis and shortness of breath. Cardiovascular: Negative for chest pain and palpitations. Gastrointestinal: Negative for abdominal pain and blood in stool. Endocrine: Negative for hot flashes. Genitourinary: Positive for bladder incontinence. Negative for difficulty urinating and hematuria. Urinary stress incontinence Musculoskeletal: Negative for back pain, gait problem and neck pain. Skin: Negative for itching, rash and wound. Neurological: Negative for gait problem and light-headedness. Hematological: Negative for adenopathy. Does not bruise/bleed easily. Psychiatric/Behavioral: Negative for decreased concentration and depression. PHYSICAL EXAMINATION: VITALS: BP 118/73 Pulse 67 Temp (Src) 97.9 (Temporal) Resp 20 Ht 5' 5.472[shoes off and verified by RS, DINING [employer] STEWARD[ (1.66m) Wt 194 lb 14.4 oz (88.4kg) SpO2 97[room air at rest]% LMP 07/28/2015 BMI 31.97 kg/(m^2). Physical Exam Vitals and nursing note reviewed. Constitutional: General: She is not in acute distress. Appearance: She is not toxic-appearing or diaphoretic. HENT: Head: Normocephalic and atraumatic. Eyes: General: No scleral icterus. Cardiovascular: Rate and Rhythm: Normal rate. Comments: Breast exam was deferred due to completion by breast surgery today Pulmonary: Effort: Pulmonary effort is normal. No respiratory distress. Abdominal: General: There is no distension. Musculoskeletal: General: No swelling. Cervical back: Neck supple. Skin: Coloration: Skin is not jaundiced or pale. Neurological: Mental Status: She is alert. Mental status is at baseline. Psychiatric: Mood and Affect: Mood normal. Behavior: Behavior normal. Thought Content: Thought content normal. Judgment: Judgment normal. LABS: 1. WBC Date Value Ref Range Status 06/17/2021 8.73 3.70 - 11.00 k/uL Final RBC Date Value Ref Range Status 06/17/2021 4.10 3.90 - 5.20 m/uL Final Hemoglobin Date Value Ref Range Status 06/17/2021 12.2 11.5 - 15.5 g/dL Final Hematocrit Date Value Ref Range Status 06/17/2021 38.6 36.0 - 46.0 % Final MCV Date Value Ref Range Status 06/17/2021 94.1 80.0 - 100.0 fL Final MCH Date Value Ref Range Status 06/17/2021 29.8 26.0 - 34.0 pg Final MCHC Date Value Ref Range Status 06/17/2021 31.6 30.5 - 36.0 g/dL Final RDW-CV Date Value Ref Range Status 06/17/2021 13.2 11.5 - 15.0 % Final Platelet Count Date Value Ref Range Status 06/17/2021 436 (H) 150 - 400 k/uL Final MPV Date Value Ref Range Status 06/17/2021 9.9 9.0 - 12.7 fL Final Abs Neut (ANC) Date Value Ref Range Status 08/13/2015 4.34 1.45 - 7.50 k/uL Final Lymph% Date Value Ref Range Status 08/13/2015 35.4 % Final Abs Lymph Date Value Ref Range Status 08/13/2015 2.65 1.00 - 4.00 k/uL Final [place]% Date Value Ref Range Status 08/13/2015 5.2 % Final Abs [place] Date Value Ref Range Status 08/13/2015 0.39 0.00 - 0.86 k/uL Final Abs Eosin Date Value Ref Range Status 08/13/2015 0.07 0.00 - 0.45 k/uL Final Baso% Date Value Ref Range Status 08/13/2015 0.5 % Final Abs Baso Date Value Ref Range Status 08/13/2015 0.04 0.00 - 0.10 k/uL Final 2. Glucose (mg/dL) Date Value 06/17/2021 100 08/13/2015 91 Potassium (mmol/L) Date Value 06/17/2021 3.9 08/13/2015 4.3 Sodium (mmol/L) Date Value 06/17/2021 141 08/13/2015 138 Chloride (mmol/L) Date Value 06/17/2021 102 08/13/2015 104 CO2 (mmol/L) Date Value 06/17/2021 27 08/13/2015 27 Creatinine (mg/dL) Date Value 06/17/2021 0.87 08/13/2015 0.79 BUN (mg/dL) Date Value 06/17/2021 13 08/13/2015 11 Anion Gap (mmol/L) Date Value 06/17/2021 12 08/13/2015 7 Calcium (mg/dL) Date Value 08/13/2015 8.8 Calcium, Total (mg/dL) Date Value 06/17/2021 9.4 Protein, Total (g/dL) Date Value 06/17/2021 7.2 08/13/2015 6.1 Albumin (g/dL) Date Value 06/17/2021 4.3 08/13/2015 4.2 Bilirubin, Total (mg/dL) Date Value 06/17/2021 0.5 08/13/2015 0.2 Alkaline Phosphatase (U/L) Date Value 06/17/2021 77 08/13/2015 40 AST (U/L) Date Value 06/17/2021 16 08/13/2015 16 ALT (U/L) Date Value 06/17/2021 18 08/13/2015 15 RADIOLOGICAL REPORTS: BILATERAL DIGITAL SCREENING MAMMOGRAM WITH CAD: 10/16/2020 HISTORY: Screening Mammogram, Encounter For / Screening Mammogram-Patient reports NO symptoms /priors available for comparison. RESULT: TECHNIQUE: The study was acquired using full field digital technology and interpreted from soft copy. Current study was also evaluated with a Computer Aided Detection (CAD). Comparison is made to exams dated: 12/09/2017 mammogram, 08/15/2015 mammogram, 05/15/2014 mammogram, and 10/27/2011 mammogram - [facility]. The tissue of both breasts is heterogeneously dense. This may lower the sensitivity of mammography. There is an asymmetry in the right breast upper inner aspect posterior depth. No other significant masses, calcifications, or other findings are seen in either breast. IMPRESSION: INCOMPLETE: NEEDS ADDITIONAL IMAGING EVALUATION The asymmetry in the right breast is indeterminate. Additional views are recommended. UNILATERAL RIGHT DIGITAL DIAGNOSTIC MAMMOGRAM TOMOSYNTHESIS WITH CAD: 07/17/2021 HISTORY: Abnormal MammogramCALL BACK RIGHT BREAST Abnormal Mammogram. RESULT: TECHNIQUE: The study was acquired using full field digital technology and interpreted from soft copy. Digital Breast Tomosynthesis (DBT) images were obtained and used to assist in the interpretation ofthis examination. Current study was also evaluated with a Computer Aided Detection (CAD). Comparison is made to exam dated: 10/16/2020 mammogram - [facility]. The tissue of right breast is heterogeneously dense. This may lower the sensitivity of mammography. There is a 6 mm round equal density mass with a spiculated margin in the right breast at 1 o'clock middle depth. No other significant masses or calcifications are seen in the breast. IMPRESSION: SUSPICIOUS FINDING - BIOPSY SHOULD BE CONSIDERED The 6 mm round equal density mass in the right breast is suspicious of malignancy. An ultrasound guided biopsy is recommended. LIMITED ULTRASOUND OF RIGHT BREAST AND AXILLA: 07/17/2021 RESULT: Comparison is made to exam dated: 10/16/2020 mammogram - [facility]. Color flow and real-time ultrasound of the right breast upper inner quadrant and axilla regions were performed. Triana scale images of the real-time examination were reviewed. There is 0.6 cm x 0.5 cm x 0.5 cm oval mass with a circumscribed margin in the right breast at 1 o'clock posterior depth 3 cm from the nipple. This oval mass is hypoechoic with internal echoes. This correlates with mammography findings. Colorflow imaging demonstrates that there is no vascularity present. There is slight thickening of a single axillary node at 4 mm. IMPRESSION: SUSPICIOUS FINDING - BIOPSY SHOULD BE CONSIDERED The 0.6 cm x 0.5 cm x 0.5 cm oval mass in the right breast is suspicious of malignancy. An ultrasound guided biopsy is recommended. HISTO PATHOLOGICAL REPORT: SURGICAL PATHOLOGY: [id number] Collected 08/20/2021 10:14 AM Status: Final result Component FINAL DIAGNOSIS A. Breast, right, 1:00, 3 cm from nipple, core biopsy: - Invasive mammary carcinoma, provisional histologic grade 2, (see comment). Diagnosis Comment Sections demonstrate an invasive carcinoma characterized by apparent rare tubule formation (3 points), moderate nuclear atypia (2 points) and low mitotic rate (1 point, 5 mitoses per 10 high-power santacruz), for a combined provisional Ephraim score of 6 (moderately differentiated, grade 2). The largest focus of invasive carcinoma is 6.5 mm. The morphologic pattern includes nests and cords, with focal apparent tubule formation, however an immunohistochemical stain for E-cadherin is negative in the invasive carcinoma; the histologic type may be better assessed on the resection specimen, thoughthe differential includes invasive lobular carcinoma and invasive carcinoma with mixed ductal and lobular features. (The E-cadherin stain was performed at [facility] and interpretedat [facility].) There is focal lobular neoplasia (either atypical lobular hyperplasia or lobularcarcinoma in situ), as demonstrated by the presence of [id number] myoepithelial cells. Immunohistochemical stains for ER and AR were performed with results in a linked report. HER-2 evaluation was performed at [facility] with results in a linked report. The case was reviewed by Dr. Tyson White, who agrees with this assessment. Breast Biomarkers (HER2 (ERBB2) by IHC) RESULTS: HER2 (ERBB2) IMMUNOHISTOCHEMISTRY ASSAY Interpretation: NEGATIVE for HER2 (ERBB2) Expression Score:1+ Percentage of cells with uniform intense complete membrane staining: N/A (reported for 2+ and 3+ scores only) RESULTS: Estrogen Receptor (ER) Positive 91-100 % Stain intensity: strong Internal controls: present and stained as expected External controls: appropriately stained Progesterone Receptor (AR) Positive 81-90 % Stain intensity: strong Internal controls: present and stained as expected External controls: appropriately stained Tissue Analyzed: Invasive carcinoma Tumor Grade: Breast Tumor Grade: Grade 2 Caitlin Suarez MD September 26, 2021 Cc: DO Jose E Nguyen MD Liza D. Talampas, MD documented in this encounterBrecksville [facility] Nurse Note* Lilo Rock RN - 09/26/2021 11:47 AM EDT Images from the original note were not included. Radiation Therapy - Nursing Note (Consult) PATIENT NAME: Rebeca Wilson PATIENT September 26, 2021 [facility] FACILITY/LOCATION: [place] Chief Complaint: Breast cancer Reason for visit: Consult. Referring physician: Internal provider Dr. Bravo Subjective Data: I am planning on lumpectomy. If radiation is recommended I will like to do it closer to my home in [place]. Additional Data Do you want to see a Smoke Tester? No Are you interested in information about fertility? No Sexual Activity: Female: Yes - No chance of Stress Scale: On a scale of 0 to 10, what number best describes how much distress you have experienced in the past week?(0 being no distress and 10 being extreme distress) 8 Social work notified: no GENERAL INFORMATION: PREVIOUS CHEMOTHERAPY: no PREVIOUS RADIATION THERAPY: no PREVIOUS HORMONAL THERAPY: no NURSING ASSESSMENT: EYES: Wears glasses EARS: No deficits noted and denies RESPIRATORY: denies, cough and shortness of breath CARDIOVASCULAR: Denies, Chest pain and Palpitations GASTROINTESTINAL: constipation and BM every 3 days, last colonoscopy 2020 h/o polyps GENITOURINARY: Stress incontinence GYNECOLOGIC: age at onset of menses 14, age at first childbirth 19, yes, 4 para 3, control - Oral contraceptives, Tubal ligation post menopausal age 53 INTEGUMENTARY: no problems noted MUSCULOSKELETAL: arthritis hands NEUROLOGIC: orientation - person, place and time PSYCHIATRIC: sleep disturbance NUTRITION: Are you currently following any diet? No Have you had any unintentional weight loss? No Do you have any difficulty chewing or swallowing? No Dietary Intake: Regular diet without any changes CONSULTS: No consults at this time OTHER INFORMATION: Are you currently residing at home? Yes Do you receive homecare services? No Do you drive? Yes Is the patient interested in van services? Not Applicable Do you have medical equipment or oxygen in the home? No Employment: Employed: [employer]ED DIRECTIVES: Does the patient have an advanced directive? Not asked at this time Assessed and policy reviewed. PATIENT EDUCATION: Topic: Radiation This education session included the patient and . Prior to initiation, barriers to learning and limitations were assessed. Readiness to learn: Cognitive ability: Alert and oriented Motivation to learn: Interested - wants to learn Patient learns best by: multiple methods Barriers to learning: None Family support: High - Very involved in pt care Learning response: Topic: Radiation Therapy Method of instruction: Individual instruction Written instruction - handouts Verbal instruction Supplemental Material: Individualized patient education folder given and reviewed. During this visit, the patient was educated on potential side effects related to treatment. Teach back method of education was performed. The patient and verbalized understanding. SIGNED by: Lilo Rock RN documented in this encounterBrecksville [facility]07-[facility] History of Present illness Narrative* Jose E Bettencourt MD - 09/26/2021 10:50 AM EDT Radiation Oncology - New Patient/Consult Note PATIENT NAME: Rebeca Wilson PATIENT REQUESTING PROVIDER: Amaya Bravo DO DIAGNOSIS: 56 year old woman with invasive mammary carcinoma of the right breast, UIQ, [id number], clinical prognostic Stage IA [bx Gr 2, ER+(>90%)/AR+(81-90%)/HER2-] HPI: 56 year old female who presents with above diagnosis, for an opinion regarding the role of radiation therapy in the management of the patient's disease. Final recommendations will be communicated back to the requesting physician by way of the shared medical record, or letter to requesting physician via US mail. Mrs. Wilson presented with an abrasion she thought due to her bra strap clasp at her right breast,upper aspect. She was seen by Dr. Edie Johnson on 06/26/2021 who noted a 6 to 7 x 5 cm area of dense induration/erythema at the right breast, upper aspect with excoriated skin approximately 1 x 1.5 cm with white fibrous tissue noted. She is managed for abscess. It was noted that she was due for mammography. Diagnostic mammogram with ultrasound on 07/17/2021 showed a 6 mm round density mass in the right breast, suspicious of malignancy, located at the 1 o'clock position. Slight thickening withsingle axillary node at 4 mm was noted. Biopsy of the right breast lesion on 08/20/2021 showed invasive mammary carcinoma, provisional histologic grade 2, ER+(>90%)/AR+(81-90%)/HER2-. The patient has been referred to us for consideration of radiotherapy options in the management of her disease. Prior radiation therapy or collagen vascular disease: No status: Post-menopausal. ALLERGIES No Known Allergies 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 thyroid nodule PAST SURGICAL HISTORY Procedure Laterality Date COLONOSCOPY FLX DX W/COLLJ SPEC WHEN PFRMD 11/28/2016 Colonoscopy COLONOSCOPY FLX DX W/COLLJ SPEC WHEN PFRMD 01/31/2020 Colonoscopy PAST SURGICAL HISTORY OF 08/2013 biopsy of thyroid TUBAL LIGATION, 91 FAMILY HISTORY Problem Relation Age of Onset Hypertension Mother Allergies Mother Cancer Father lung-smoker COPD Sister None Sister Breast Cancer Paternal Grandmother Cancer Paternal Aunt lung & breast- smoker Breast Cancer Paternal Aunt Prostate Cancer Paternal Uncle Cancer Paternal Uncle adrenal 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 HEENT: Negative for sudden vision or hearing changes. NECK: Negative for masses in the neck. RESPIRATORY: Negative for shortness of breath. CARDIAC: Negative for chest pain, palpitations, murmurs, or syncopal episodes. GI: Negative for nausea, vomiting, diarrhea, constipation, blood per rectum, or melena. : +Urinary stress incontinence Negative for dysuria, hematuria, urgency, frequency or incontinence. MUSCULOSKELETAL: Negative for limitations in movement, pain, or swelling. NEURO: Negative for dizziness, headache, weakness or numbness. HEMATOLOGIC: Negative for bleeding or easy bruising. SKIN: Negative for rashes or other skin changes. PHYSICAL EXAM: VS: LMP 07/28/2015 (Exact Date) KPS: 100 General Appearance: Alert and oriented. No acute distress. HEENT: NCAT. Sclera anicteric. EOMI. Scar at right breast UOQ from recent abscess. Remainder of exam deferred for discussion. ASSESSMENT AND PLAN: 56 year old woman with invasive mammary carcinoma of the right breast, UIQ, [id number], clinical prognostic Stage IA [bx Gr 2, ER+(>90%)/AR+(81-90%)/HER2-] Mrs. Wilson appears to have early stage, favorable right breast cancer with disease characteristics fitting for partial breast radiation per [facility] guidelines. We discussed treatment over 5 fractions, every other day per Marion et al. we also discussed consideration of participation on NRG BR007. She lives in [place] and will prefer having her treatment there. She would like to meet with me after surgery to review pathology and then make referral. She is to see Dr. Suarez today. Screening left mammogram has been ordered by Dr. Bravo as it is due in October. Approximately 60 minutes were spent with the patient, >50% of which was spent on treatment counseling. Signed by: Jose E Bettencourt MD cc: MD Amaya Cortes DO Elnora Spradling, MD documented in this encounterBrecksville [facility]07-[facility] History of Present illness Narrative* Kenyetta Trevino MD - 09/26/2021 10:[address] Bravo submitted a localization image review for reflector placement at the following lesion: - Right breast biopsy site at the 1:00 3cmfn identified with a ribbon clip. Mammogram dated 08/20/2021 is annotated. Please note that last screening exam for the left breast is from October 2020. I would recommend imaging of the left breast at the time of reflector placement. This is a nonbillable event for radiology planning purposes only. documented in this encounterBrecksville [facility]07-[facility] History of Present illness Narrative* Amaya Bravo DO - 09/26/2021 9:00 AM EDT NEW BREAST CANCER - INITIAL SURGICAL VISIT SERVICE DATE: 09/20/2021 REFERRING PROVIDER: Dr. Prashant Myers [facility] SUBJECTIVE: REASON FOR TODAY'S VISIT: Breast Cancer Evaluation HISTORY of PRESENT ILLNESS: Rebeca Wilson is a 56 year old White female who presents for an evaluation of a new diagnosis of RIGHT breast cancer. Consult requested for an opinion regarding the evaluation and treatment of a new breast issue. My final impression and recommendations will be communicated back to the requesting physician by way of the shared medical record or letter via US mail. Patient presented for a screening mammogram on 10/16/2020. A RIGHT breast focal asymmetry was noted.Subsequently, diagnostic imaging was performed and revealed a RIGHT oval mass measuring 0.6 cm x 0.5 cm x 0.5 cm at 1:00 location, 3 cm from the nipple well as an axillary note, with slight thickening (4 mm), was reported by the Radiologist. Diagnostic mammogram was recommended at that time. Patient developed a right upper outer quadrant breast abscess skin infection with a new bra and this was treated in the spring with antibiotics at which time the diagnostic mammogram was ordered. Theinfection abscess was not related to the underlying mass. Diagnostic imaging showed a suspicious mass and US guided biopsy was recommended of the the suspicious RIGHT breast mass. Diagnosis was made by means of ultrasound-guided core biopsy of RIGHT breast on 08/20/2021. The pathology report showed Invasive mammary carcinoma Grade 2, ER positive, AR positive, HER2 non-amplified. Patient denies any other breast pain, skin changes, breast masses and nipple discharge Patient has not had previous breast concerns, procedures or surgeries. Family history of breast cancer in her maternal grandmother and maternal aunt x2. Father of lung cancer. She presents today to discuss surgical consultation and has multidisciplinary appointments arranged. PAST MEDICAL HISTORY: 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 thyroid nodule PAST SURGICAL HISTORY: PAST SURGICAL HISTORY Procedure Laterality Date COLONOSCOPY FLX DX W/COLLJ SPEC WHEN PFRMD 11/28/2016 Colonoscopy COLONOSCOPY FLX DX W/COLLJ SPEC WHEN PFRMD 01/31/2020 Colonoscopy PAST SURGICAL HISTORY OF 08/2013 biopsy of thyroid TUBAL LIGATION, 91 OBSTETRIC RELATED HISTORY: Patient did breast feed. Age at of First Child: 19 years of age. Age at Onset of Menses: 14 years of age. Age at Menopause: 53 years of age. Ovaries: both intact Uterus: intact P: 3 Patient's last menstrual period was 05/21/18 Exogenous Hormone Use: Oral Contraceptives FAMILY HISTORY: FAMILY HISTORY Problem Relation Age of Onset Hypertension Mother Allergies Mother Cancer Father lung-smoker COPD Sister None Sister Breast Cancer Paternal Grandmother Cancer Paternal Aunt lung & breast- smoker Breast Cancer Paternal Aunt Prostate Cancer Paternal Uncle Cancer Paternal Uncle adrenal The patient is not of Ashkenazic Ancestry. 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 Social History Tobacco Use Smoking status: Former Smoker Packs/day: 1.00 Start date: 08/04/1983 Quit date: 08/07/2015 Years since quittin.1 Smokeless tobacco: Never Used Vaping Use Vaping Use: Never used Substance Use Topics Alcohol use: Yes Comment: social Drug use: No ACTIVE PROBLEM LIST Screening Mammogram, Encounter for - 09/27/2021 Malignant Neoplasm of Upper-Inner Quadrant of Right Breast in Female, Estrogen Receptor Positive (Hcc) - 09/27/2021 Family History of Breast Cancer - 09/27/2021 Nontoxic Multinodular Goiter - 08/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 meloxicam (MOBIC) 15 mg tablet Take 1 tablet by mouth once daily. buPROPion SR (WELLBUTRIN SR) 150 mg 12 hr tablet Take 1 tablet by mouth twice daily. omeprazole (PRILOSEC) 20 mg capsule Take 20 mg by mouth once daily. MULTI-VITAMIN ORAL Take by mouth once daily. fluticasone (FLONASE) 50 mcg/actuation nasal spray Use 2 Sprays in each nostril once daily. Rinse mouth after use. ALLERGIES No Known Allergies REVIEW OF SYSTEMS: GENERAL: No weight loss, malaise or fevers HEENT: Negative for frequent or significant headaches, No changes in hearing or vision, no nose bleeds or other nasal problems RESPIRATORY:Ex-smoker of 7 years with 25 back yr history. Negative for cough, hemoptysis, wheezing,COPD, dyspnea or shortness of breath CARDIOVASCULAR: Negative for chest pain, leg swelling, hypertension, CHF or palpitations GASTROINTESTINAL: No nausea, vomiting, or diarrhea GENITOURINARY: No history of dysuria, frequency or incontinence GYNECOLOGICAL: Negative for abnormal vaginal bleeding, abnormal vaginal discharge MUSCULOSKELETAL: Negative for joint pain or swelling, back pain or muscle pain INTEGUMENTARY: Denies Scleroderma or Lupus. Denies chronic skin conditions. PSYCHOLOGICAL: Denies history of psychiatric illness. Patient feels she is coping well with recent Breast Cancer diagnosis ( present for consult). Negative for sleep disturbance, mood disorderand recent psychosocial stressors. All other reviewed and negative other than HPI. Dana Flores PA-C OBJECTIVE: PHYSICAL EXAM: Ht: 5'6 Wt: 197 lb BMI: 31.8 kg/m GENERAL:well-nourished, healthy, alert and oriented x 3, calm SKIN:warm, dry, skin color, texture, turgor normal HEAD/EYES:normocephalic, atraumatic and anicteric NECK: supple, symmetrical, no thyromegaly RESPIRATORY: Respirations regular & non-labored ABDOMEN: soft, nondistended. No hepatomegaly., No masses MUSCULOSKELETAL: No observed limitations in range of motion of upper extremities. Patient ambulatesindependently BREASTS: The Patient was examined in the upright and supine positions. Breasts are symmetric. Thereare no significant fibrocystic changes. Patient's cup size is D. The patient was examined in the upright and supine position. RIGHT breast soft, no dominant masses appreciated, nipple everted, no discharge, no skin changes, healing vertical incision in the upper outer quadrant from her prior staff skin abscess RIGHT axilla no palpable axillary lymphadenopathy LEFT breast soft, no dominant masses, nipple everted, no discharge, no skin changes LEFT axilla no palpable axillary lymphadenopathy Regional Lymph Nodes: There is no concerning supraclavicular, infraclavicular or cervical lymphadenopathy. IMAGING TO DATE: BILATERAL DIGITAL SCREENING MAMMOGRAM WITH CAD: 10/16/2020 HISTORY: Screening Mammogram, Encounter For / Screening Mammogram-Patient reports NO symptoms /priors available for comparison. RESULT: TECHNIQUE: The study was acquired using full field digital technology and interpreted from soft copy. Current study was also evaluated with a Computer Aided Detection (CAD). Comparison is made to exams dated: 12/09/2017 mammogram, 08/15/2015 mammogram, 05/15/2014 mammogram, and 10/27/2011 mammogram - [facility]. The tissue of both breasts is heterogeneously dense. This may lower the sensitivity of mammography. There is an asymmetry in the right breast upper inner aspect posterior depth. No other significant masses, calcifications, or other findings are seen in either breast. IMPRESSION: INCOMPLETE: NEEDS ADDITIONAL IMAGING EVALUATION The asymmetry in the right breast is indeterminate. Additional views are recommended. UNILATERAL RIGHT DIGITAL DIAGNOSTIC MAMMOGRAM TOMOSYNTHESIS WITH CAD: 07/17/2021 HISTORY: Abnormal MammogramCALL BACK RIGHT BREAST Abnormal Mammogram. RESULT: TECHNIQUE: The study was acquired using full field digital technology and interpreted from soft copy. Digital Breast Tomosynthesis (DBT) images were obtained and used to assist in the interpretation of this examination. Current study was also evaluated with a Computer Aided Detection (CAD). Comparison is made to exam dated: 10/16/2020 mammogram [facility]. The tissue of right breast is heterogeneously dense. This may lower the sensitivity of mammography. There is a 6 mm round equal density mass with a spiculated margin in the right breast at 1 o'clock middle depth. No other significant masses or calcifications are seen in the breast. IMPRESSION: SUSPICIOUS FINDING - BIOPSY SHOULD BE CONSIDERED The 6 mm round equal density mass in the right breast is suspicious of malignancy. An ultrasound guided biopsy is recommended. LIMITED ULTRASOUND OF RIGHT BREAST AND AXILLA: 07/17/2021 RESULT: Comparison is made to exam dated: 10/16/2020 mammogram [facility]. Color flow and real-time ultrasound of the right breast upper inner quadrant and axilla regions were performed. Triana scale images of the real-time examination were reviewed. There is 0.6 cm x 0.5 cm x 0.5 cm oval mass with a circumscribed margin in the right breast at 1 o'clock posterior depth 3 cm from the nipple. This oval mass is hypoechoic with internal echoes. This correlates with mammography findings. Color flow imaging demonstrates that there is no vascularity present. There is slight thickening of a single axillary node at 4 mm. IMPRESSION: SUSPICIOUS FINDING - BIOPSY SHOULD BE CONSIDERED The 0.6 cm x 0.5 cm x 0.5 cm oval mass in the right breast is suspicious of malignancy. An ultrasound guided biopsy is recommended. PATHOLOGY RESULTS: 08/20/21 FINAL DIAGNOSIS A. Breast, right, 1:00, 3 cm from nipple, core biopsy: - Invasive mammary carcinoma, provisional histologic grade 2, (see comment). Diagnosis Comment Sections demonstrate an invasive carcinoma characterized by apparent rare tubule formation (3 points), moderate nuclear atypia (2 points) and low mitotic rate (1 point, 5 mitoses per 10 high-power santacruz), for a combined provisional Ephraim score of 6 (moderately differentiated, grade 2). The largest focus of invasive carcinoma is 6.5 mm. The morphologic pattern includes nests and cords, with focal apparent tubule formation, however an immunohistochemical stain for E-cadherin is negative in the invasive carcinoma; the histologic type may be better assessed on the resection specimen, thoughthe differential includes invasive lobular carcinoma and invasive carcinoma with mixed ductal and lobular features. (The E-cadherin stain was performed at [facility] and [facility] [place] [facility] There is focal lobular neoplasia (either atypical lobular hyperplasia or lobularcarcinoma in situ), as demonstrated by the presence of [id number] myoepithelial cells. Immunohistochemical stains for ER and AR were performed with results in a linked report. HER-2 evaluation was performed at [facility] with results in a linked report. The case was reviewed by Dr. Tyson White, who agrees with this assessment. Breast Biomarkers RESULTS: Estrogen Receptor (ER) Positive 91-100 % Stain intensity: strong Progesterone Receptor (AR) Positive 81-90 % Stain intensity: strong Breast Biomarkers (HER2 (ERBB2) by IHC) RESULTS: HER2 (ERBB2) IMMUNOHISTOCHEMISTRY ASSAY Interpretation: NEGATIVE for HER2 (ERBB2) Expression Score:1+ GENETIC TESTING: Family history - genetics consult placed SOZO Review 09/26/2021 Extremity measured Right arm Pacemaker/ Defibrillator/ Possible No Dominant Side Right Bilateral/ Unilateral Measurement Unilateral Patient Position Standing LDEX Result Green LDEX Score 1.4 Provider notified Yes Another SOZO Measurement needed No ASSESSMENT: Rebeca Wilson is a 56 year old female with a RIGHT breast 6 mm invasive mammary cancer at 1:00, 3 cm FN. [address] 4 mm but normal - no need for bx, per discussion with radiology. ER+AR+HER2- [id number] PLAN: DIAGNOSIS: (Z12.31) Screening mammogram, encounter for (primary encounter diagnosis) (C50.211, Z17.0) Malignant neoplasm of 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, estrogen receptor positive (HCC) (Z80.3) Family history of breast cancer I have examined Ms. Wilson and reviewed the physical findings, imaging and pathology reports with her. A discussion was held with the patient regarding the local-regional, as well as systemic treatment of her Breast Cancer. We discussed role of breast conservation surgery or mastectomy, indications and risks of sentinel lymph node biopsy, possibility of axillary lymph node dissection, breast reconstruction and role of systemic and radiation therapy. She is interested in breast conserving surgery. Per discussion with radiology she is due for a left screening mammogram in October- will have this performed prior to surgery REFERRAL(S) for breast cancer treatment planning considerations: Genetic counseling for family history, Medical oncology consultation and Radiation oncology consultation, Dr. Suarez and Dr. Bettencourt States she would like genetic testing but does not want this to postpone her surgery. The risks of surgery were discussed with her including bleeding, hematoma, infection, skin necrosis, sensory paresthesias and upper extremity lymphedema, and possible need for additional surgery. Sheacknowledges these risks and agrees to proceed. 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 Wilson was given our contact information if she has any further questions or concerns. Amaya Bravo DO, FACS Breast Surgeon [facility] Cc: Dr. Lucia Suarez documented in this encounterBrecksville [facility]07-[facility] Nurse Note* Maria De Jesus Verma LPN - 09/26/2021 8:55 AM EDT Patient was referred by: Akira Pierre MD Did patient bring outside records to appt today? : No Last mammogram on: 10/16/20 bilateral Results: see report Patient current bra size: 38D Coping: It is normal to feel some distress when you have cancer. On a scale of 0-10 please indicatethe number that best describes your level of distress on the average over the past week. 10/16 Referred to social work: No Is the patient active on [employer] Yes Electronically Signed By: Maria De Jesus Verma LPN In Department: [facility] REVIEW OF PATIENT HISTORY: OB History T0 L3 SAB1 IAB1 Ectopic0 Multiple0 Live Births3 FAMILY HISTORY Problem Relation Age of Onset Hypertension Mother Allergies Mother Cancer Father lung-smoker COPD Sister None Sister Breast Cancer Paternal Grandmother Cancer Paternal Aunt lung & breast- smoker Breast Cancer Paternal Aunt Prostate Cancer Paternal Uncle Cancer Paternal Uncle adrenal PAST MEDICAL HISTORY Diagnosis Date 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 thyroid nodule PAST SURGICAL HISTORY Procedure Laterality Date COLONOSCOPY FLX DX W/COLLJ SPEC WHEN PFRMD 11/28/2016 Colonoscopy COLONOSCOPY FLX DX W/COLLJ SPEC WHEN PFRMD 01/31/2020 Colonoscopy PAST SURGICAL HISTORY OF 08/2013 biopsy of thyroid TUBAL LIGATION, 91 Social History Tobacco Use Smoking status: Former Smoker Packs/day: 1.00 Start date: 08/04/1983 Quit date: 08/07/2015 Years since quittin.1 Smokeless tobacco: Never Used Vaping Use Vaping Use: Never used Substance Use Topics Alcohol use: Yes Comment: social Drug use: No documented in this encounterBrecksville [facility]07-[facility] Miscellaneous Notes* Telephone Encounter - Maria De Jesus Verma LPN - 09/10/2021 11:38 AM EDT Called and spoke to pt regarding her upcoming appointment with , moved her appointment from 10/10 to 09/26 at 9am, went over additional appointments she may or may not need. Imaging received and what (MMG/US/MRI - radiology reviewed yet? In [facility] Pathology slides sent / reviewed? In [facility] Consults: Breast psych ([facility]) not at this time Med onc yes Requested for same day on 09/26. Rad onc yes requested same day on 09/26 Plastics yes on 09/26 at 1:45pm All questions answered she thanked me for the call. Maria De Jesus Verma LPN documented in this encounterBrecksville [facility]06-30-2022 History of Present illness Narrative* Quinton Myers MD - 09/05/2021 1:45 PM EDT Subjective:The patient is a 56 year old female with a complaint of an abnormal mammogram. The patient had a mammogram with ultrasound on 07/17/21 which demonstrated Birads 4: There is 0.6 cm x 0.5 cm x 0.5 cm oval mass with a circumscribed margin in the right breast at 1 o'clock posterior depth 3 cm from the nipple. This oval mass is hypoechoic with internal echoes. This correlates with mammography findings. Color flow imaging demonstrates that there is no vascularity present. There is slight thickening of a single axillary node at 4 mm. On 08/20/2021 the patient underwent an ultrasound-guided right needle core biopsy. Pathology report came back as invasive mammary carcinoma. It was strongly ER and AR positive. HER2/lula was negative. Subjective: Blood pressure 146/84, pulse 104, temperature 36.8 C (98.2 F), height 167.6 cm (5' 6),weight 89.4 kg (197 lb), last menstrual period 07/28/2015, SpO2 98 %. Biopsy site is clean without signs of infection Assessment:Malignant neoplasm of upper-outer quadrant of right breast in female, estrogen receptor positive (hcc) (primary encounter diagnosis) Plan: I am going to refer her on to breast surgeons for definitive surgical treatment. documented in this encounterBrecksville [facility]06-14-2022 NoteHNO ID: [id number] Author: RT Demi(R) Service: ? Author Type: Technologist Type: Progress Notes Filed: 08/20/2021 10:21 AM Note Text: Radiology Service Progress Note PATIENT NAME: Rebeca Wilson DATE OF SERVICE: August 20, 2021 TIME: 10:21 AM PATIENT IDENTITY VERIFICATION COMPLETED USING TWO (2) IDENTIFIERS: Name and Date of confirmed by patient verbally. FALL SCREENING: Has the patient had 2 falls in the last year or 1 fall with injury or currently using an Ambulatory Assistive Device (Walker, Cane, Wheelchair, Crutches, etc.)? No PATIENT GENDER DATA: Female. status: : No status: NO. PATIENT RELEVANT IMPLANT DATA REVIEWED: Not Applicable RADIOLOGY DEPARTMENT: Mammography PERIPHERAL IV DATA: Not applicable SIGNED BY: RT Demi(R) August 20, 2021 10:21 [facility]06-14-2022 NoteHNO ID: [id number] Author: RT Nata(R) Service: ? Author Type: Technologist Type: Progress Notes Filed: 08/20/2021 9:32 AM Note Text: Radiology Service Progress Note PATIENT NAME: Rebeca Wilson DATE OF SERVICE: August 20, 2021 TIME: 9:32 AM PATIENT IDENTITY VERIFICATION COMPLETED USING TWO (2) IDENTIFIERS: Name and Date of confirmed by patient verbally. FALL SCREENING: Has the patient had 2 falls in the last year or 1 fall with injury or currently using an Ambulatory Assistive Device (Walker, Cane, Wheelchair, Crutches, etc.)? No PATIENT GENDER DATA: Female. status: : No status: NO. PATIENT RELEVANT IMPLANT DATA REVIEWED: Not Applicable RADIOLOGY DEPARTMENT: Biopsy PERIPHERAL IV DATA: Not applicable SIGNED BY: RT Nata(R) August 20, 2021 9:32 [facility]05-26-2022 NoteHNO ID: [id number] Author: Lourdes Gruber MD Service: ? Author Type: Physician Type: Progress Notes Filed: 08/01/2021 4:14 PM Note Text: Request to review outside films from [facility]. Right ultrasound guided biopsy is requested. Comparison is made to bilateral mammograms dated 12/09/2017 and 10/16/2020. The following exams are submitted for interpretation: Right diagnostic tomosynthesis (07/17/2021), right breast ultrasound (07/17/2021) Findings: There is a round mass with spiculated margin in the right breast upper inner quadrant mid/posterior depth. This is best seen on CC tomosynthesis image 33 and MLO slice 46. A correlative 6 mm mass with indistinct margin is confirmed at the 1:00 position 3 cm FN. A right axillary lymph node with borderline cortical thickening (4mm) is also noted. Recommendations: Agree with ultrasound guided core biopsy of the suspicious right breast mass at the 1:00 position. Surgical consult is recommended for the borderline thickened right axillary lymph node. The patient will be contacted by the [facility] breast center to schedule the recommended procedure. The patient is under the care of Dr. Myers for surgical management.[facility]05-26-2022 History of Present illness Narrative* Lourdes Gruber MD - 08/01/2021 4:07 PM EDT Request to review outside films from [facility]. Right ultrasound guided biopsy is requested. Comparison is made to bilateral mammograms dated 12/09/2017 and 10/16/2020. The following exams are submitted for interpretation: Right diagnostic tomosynthesis (07/17/2021), right breast ultrasound (07/17/2021) Findings: There is a round mass with spiculated margin in the right breast upper inner quadrant mid/posterior depth. This is best seen on CC tomosynthesis image 33 and MLO slice 46. A correlative 6 mm mass with indistinct margin is confirmed at the 1:00 position 3 cm FN. A right axillary lymph nodewith borderline cortical thickening (4mm) is also noted. Recommendations: Agree with ultrasound guided core biopsy of the suspicious right breast mass at the 1:00 position. Surgical consult is recommended for the borderline thickened right axillary lymph node. The patient will be contacted by the [facility] breast center to schedule the recommended procedure. The patient is under the care of Dr. Myers for surgical management. documented in this encounterBrecksville [facility]05-20-2022 Miscellaneous Notes* Telephone Encounter - Brittany Correa LPN - 07/26/2021 10:16 AM EDT Emailed Madison Costa to scheduled patient for a ultrasound biopsy of Right breast. documented in this encounterBrecksville [facility]05-20-[facility]22 History of Present illness Narrative* Quinton Myers MD - 07/26/2021 10:02 AM EDT Attempted to do an ultrasound-guided right breast biopsy. Was unable to see the lesion with any degree of certainty. We will get her scheduled to have this done [place]. documented in this encounterBrecksville [facility]05-17-2022 Miscellaneous Notes* Telephone Encounter - Tita Rima Pilar FREEMAN - 07/23/2021 8:53 AM EDT Patient has been identified by name and date of : Yes Patient phones for refill(s): Pending Prescriptions Disp Refills CYCLOBENZAPRINE 10 MG TABLET 30 tablet 0 Sig: Take 0.5-1 tablets by mouth three times daily as needed for muscle spasm. TRINI: No Date of last office visit in primary care: 06/07/2021 6 month follow-up: 12/22/2021 Last 2 Encounter Wt Readings: Date: Wt: 07/23/2021 89.4 kg (197 lb) 07/01/2021 88 kg (194 lb) Previous labs/tests for medication: Not applicable Please advise. Thank you. Tita Quezada LPN documented in this encounterBrecksville [facility]05-17-2022 History of Present illness Narrative* Quinton Myers MD - 07/23/2021 8:16 AM EDT HISTORY AND PHYSICAL - BREAST COMPLAINT Rebecaberto Wilson 1965 REFERRING PHYSICIAN: Akira Pierre MD CHIEF COMPLAINT: Abnormal mammogram (primary encounter diagnosis) HPI: The patient is a 56 year old female with a complaint of an abnormal mammogram. The patient hada mammogram with ultrasound on 07/17/21 which demonstrated Birads 4: There is 0.6 cm x 0.5 cm x 0.5 cm oval mass with a circumscribed margin in the right breast at 1 o'clock posterior depth 3 cm from the nipple. This oval mass is hypoechoic with internal echoes. This correlates with mammography findings. Color flow imaging demonstrates that there is no vascularity present. There is slight thickening of a single axillary node at 4 mm. The patient denies a history of breast masses. She does perform a self breast exam routinely. She notes no skin changes. She denies nipple discharge. She notes no axillary masses. She notes no familyhistory of breast problems. She notes no significant breast trauma or breast difficulties in the past. The patient is being seen by me today at the request of Dr. Akira Pierre MD for my opinion and advice regarding Abnormal mammogram (primary encounter diagnosis). PAST MEDICAL HISTORY Diagnosis Date 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 thyroid nodule PAST SURGICAL HISTORY Procedure Laterality Date COLONOSCOPY FLX DX W/COLLJ SPEC WHEN PFRMD 11/28/2016 Colonoscopy COLONOSCOPY FLX DX W/COLLJ SPEC WHEN PFRMD 01/31/2020 Colonoscopy PAST SURGICAL HISTORY OF 08/2013 biopsy of thyroid TUBAL LIGATION, 91 Current Outpatient Medications Medication Sig Dispense Refill meloxicam (MOBIC) 15 mg tablet Take 1 tablet by mouth once daily. 90 tablet 1 buPROPion SR (WELLBUTRIN SR) 150 mg 12 hr tablet Take 1 tablet by mouth twice daily. 180 tablet 3 cyclobenzaprine (FLEXERIL) 10 mg tablet Take 0.5-1 tablets by mouth three times daily as needed forMuscle Spasm. 30 tablet 0 omeprazole (PRILOSEC) 20 mg capsule Take 20 mg by mouth once daily. MULTI-VITAMIN ORAL Take by mouth once daily. fluticasone (FLONASE) 50 mcg/actuation nasal spray Use 2 Sprays in each nostril once daily. Rinse mouth after use. 1 Bottle 0 No current facility-administered medications for this visit. ALLERGIES: Patient has no known allergies. PERSONAL HISTORY: Social History Tobacco Use Smoking status: Former Smoker Packs/day: 1.00 Start date: 08/04/1983 Quit date: 08/07/2015 Years since quittin.9 Smokeless tobacco: Never Used Vaping Use Vaping Use: Never used Substance Use Topics Alcohol use: Yes Comment: social Drug use: No FAMILY HISTORY: FAMILY HISTORY Problem Relation Age of Onset Hypertension Mother Allergies Mother Cancer Father lung-smoker COPD Sister None Sister Breast Cancer Paternal Grandmother Cancer Paternal Aunt lung & breast- smoker Breast Cancer Paternal Aunt Prostate Cancer Paternal Uncle Cancer Paternal Uncle adrenal REVIEW OF SYMPTOMS: The review of systems data was entered by the nurse and reviewed by id Nursing Notes: Brittany Correa LPN 07/23/2021 8:11 AM Signed REVIEW OF SYSTEMS: General: The patient denies fatigue, denies weight loss, denies weight gain, denies feeling hot, and denies feelings of cold. Eyes: The patient denies glaucoma, denies eye injury/surgery, does not wear glasses or contacts. Ear/Nose/Throat: The patient notes allergies, denies hayfever, notes ear infections, and denies bloody noses. Cardiovascular: The patient denies chest pain, denies heart disease, denies high blood pressure,denies cardiac stent, denies prior heart attack, denies irregular heart beat, denies high cholesterol, denies poor circulation, denies heart failure, other cardiac issues, denies claudication, denies cold feet, denies peripheral arterial stent. Respiratory: The patient denies tuberculosis, denies pneumonia, denies frequent cough, denies pulmonary embolism, denies shortness of breath, and denies coughing up blood. Gastrointestinal: The patient denies difficulty swallowing, denies acid reflux, denies ulcers, denies vomiting, denies jaundice/hepatitis, denies gallbladder problems, denies black or tarry stools, denies hemorrhoids, denies bleeding from rectum, denies diverticulitis, denies constipation, denies diarrhea, denies loss of stool control, and denies hernias. Kidney/Bladder: The patient denies kidney stones, notes urine infections, and denies bloody urine. Skin: The patient denies a history of skin cancer, denies bleeding/changing moles, and notes a history of skin rash. Neurologic: The patient denies a history of epilepsy/convulsions, denies headaches, denies head/spinal injuries, and denies stroke/TIA. Psychiatric: The patient denies psychiatric medications, denies depression, and denies voices, denies substance abuse. Endocrine: The patient denies thyroid disorders, denies diabetes, and denies hormonal problems. Hematologic: The patient denies a history of bruising, denies bleeding, and denies anemia, denies blood clots. Infections: The patient denies a history of measles and mumps, denies rheumatic fever, and denies sexually transmitted diseases. Musculoskeletal: The patient notes back pain/injury, denies back problems, denies sciatica, denies knee/foot trouble, notes arthritis, or denies gout. When was patient's last Mammogram screening? 07/2021 Last Colonoscopy: 01/2020 Brittany Correa LPN PHYSICAL EXAMINATION: General: The patient is 56 year old female, well nourished, well hydrated in no acute distress. Thepatient is oriented to time, place, and person. VITALS: Blood pressure 122/78, pulse 105, temperature 36.5 C (97.7 F), height 167.6 cm (5' 6), weight 89.4 kg (197 lb), last menstrual period 07/28/2015, SpO2 98 %. Body mass index is 31.8 kg/m . HEENT: Normal cephalic, ataumatic, pupils are equally round, sclera are anicteric, mucous membranesare moist, oropharynx is clear. Neck has no masses, asymmetry or lymphadenopathy. Thyroid is unremarkable. Respiratory: Clear to auscultation and percussion. Normal respiratory excursion and pattern. Cardiac: Examination is regular rate and rhythm. Abdominal exam: Soft, nontender, with no palpable masses. No hepatosplenomegaly. No palpable hernias. Rectal exam: exam deferred Extremities: no clubbing, cyanosis or edema. No adenopathy. Breast: Visual inspection reveals no retractions, nipple inversion, or skin changes. Palpation of the right breast reveals no dominant or suspicious masses, but multiple benign-feeling nodules. Palpation of the left breast reveals no dominant or suspicious masses, but multiple benign-feeling nodules. Axillary exam demonstrates no suspicious masses in either the left or right axilla. There is no nipple discharge expressed from either the left or right breast. LABORATORY VALUES: As Noted RADIOLOGIC STUDIES: As Noted Assessment IMPRESSION: Abnormal mammogram (primary encounter diagnosis) PLAN: I plan to perform a ultrasound guided core biopsy of the right breast. The planned surgical procedure was discussed extensively with the patient. The risks, benefits, anticipated outcomes and possible complications were mentioned. My staff has also explained the procedure in understandable terms and the patient was given the option to take printed material concerning the planned procedure. The patient had the opportunity to ask questions concerning the planned procedure. The patient freely consents to the planned procedure. Diagnoses: (R92.8) Abnormal mammogram (primary encounter diagnosis) My findings have been communicated to Dr. Akira Pierre MD via shared medical record. This note will be forwarded to Dr. Akira Pierre MD. Return to Clinic: The patient is instructed to follow-up with me 1 week post operatively. Quinton Myers III, MD documented in this encounterBrecksville [facility]05-[facility] Nurse Note* Brittany Correa LPN - 07/23/2021 8:10 AM EDT REVIEW OF SYSTEMS: General: The patient denies fatigue, denies weight loss, denies weight gain, denies feeling hot, and denies feelings of cold. Eyes: The patient denies glaucoma, denies eye injury/surgery, does not wear glasses or contacts. Ear/Nose/Throat: The patient notes allergies, denies hayfever, notes ear infections, and denies bloody noses. Cardiovascular: The patient denies chest pain, denies heart disease, denies high blood pressure,denies cardiac stent, denies prior heart attack, denies irregular heart beat, denies high cholesterol, denies poor circulation, denies heart failure, other cardiac issues, denies claudication, denies cold feet, denies peripheral arterial stent. Respiratory: The patient denies tuberculosis, denies pneumonia, denies frequent cough, denies pulmonary embolism, denies shortness of breath, and denies coughing up blood. Gastrointestinal: The patient denies difficulty swallowing, denies acid reflux, denies ulcers, denies vomiting, denies jaundice/hepatitis, denies gallbladder problems, denies black or tarry stools, denies hemorrhoids, denies bleeding from rectum, denies diverticulitis, denies constipation, denies diarrhea, denies loss of stool control, and denies hernias. Kidney/Bladder: The patient denies kidney stones, notes urine infections, and denies bloody urine. Skin: The patient denies a history of skin cancer, denies bleeding/changing moles, and notes a history of skin rash. Neurologic: The patient denies a history of epilepsy/convulsions, denies headaches, denies head/spinal injuries, and denies stroke/TIA. Psychiatric: The patient denies psychiatric medications, denies depression, and denies voices, denies substance abuse. Endocrine: The patient denies thyroid disorders, denies diabetes, and denies hormonal problems. Hematologic: The patient denies a history of bruising, denies bleeding, and denies anemia, denies blood clots. Infections: The patient denies a history of measles and mumps, denies rheumatic fever, and denies sexually transmitted diseases. Musculoskeletal: The patient notes back pain/injury, denies back problems, denies sciatica, denies knee/foot trouble, notes arthritis, or denies gout. When was patient's last Mammogram screening? 07/2021 Last Colonoscopy: 01/2020 Brittany Correa LPN documented in this encounterBrecksville [facility]05-[facility] History of Present illness Narrative* Yeimi Cai [facility] - 07/17/2021 8:30 AM EDT Radiology Service Progress Note PATIENT NAME: Rebeca Wilson DATE OF SERVICE: July 17, 2021 TIME: 8:41 AM PATIENT IDENTITY VERIFICATION COMPLETED USING TWO (2) IDENTIFIERS: Name and Date of confirmedby patient verbally. FALL SCREENING: Has the patient had 2 falls in the last year or 1 fall with injury or currently using an Ambulatory Assistive Device (Walker, Cane, Wheelchair, Crutches, etc.)? No PATIENT GENDER DATA: Female. status: : No status: NO. PATIENT RELEVANT IMPLANT DATA REVIEWED: Not Applicable RADIOLOGY DEPARTMENT: Mammography PERIPHERAL IV DATA: Not applicable SIGNED BY: Yeimi Cai Fipeo Shira July 17, 2021 8:41 AM documented in this encounterBrecksville [facility]04-25-2022 Instructions* Patient Instructions* Trina Jorgensen MD - 07/01/2021 9:56 AM EDT Stress Urinary Incontinence Leakage caused by weak pelvic floor muscles, urethral sphincter, and poor urethral support. Leakageoften occurs from coughing, sneezing, or exercise. Treatment Options Observation Non-surgical Kegels/Pelvic Floor Muscle Exercises (w/o or w/ P.T.) Vaginal devices Tampons- can insert at the opening to put pressure on the urethra Pessary- device specifically made to put pressure on the urethra. Inserted vaginally and usually removed nightly. Weight loss Medication Cymbalta (off label use)- Works by increasing urethral tone but has several side effects. 3. Surgical Injectables/Bulking Agents(Silicone beads) Least invasive Moderate Improvement mid May need 1-3 injections and may need boosters every several years Mid-urethral slings Permanent synthetic mesh 90% improvement 50-60% dry rate 10% failure 1-3% mesh exposure/erosion 5% difficulty urinating 5-10% new urge problems Urge problems: 40-60% improve 40-60% same/worse FDA advisory(old) [facility] -Outpatient Recovery -No driving for 3 days -No lifting >10 pounds for 2 weeks -Limited activities for 4 weeks -Pelvic Rest for 6 weeks WEBSITES: www.voidesforpfd.org www.nafc.org To decrease your UTIs (bladder infections) be sure to: -Wipe from front to back -If you wear pads for urine leakage, make sure to change your pad once wet -Drink plenty of fluid, especially water and urinate frequently -Urinate after intercourse -High dose cranberry tablets: Infinia brand or Ellura (Joognu) -D-mannose -Probiotics -Vaginal estrogen if after menopause -Antibiotic prophylaxis -Hiprex- medicine that converts to formaldehye in urine. Take with Vitamin C -Low dose nitrofurantoin (antibiotic) documented in this encounterB[facility] History of Present illness Narrative* Trina Jorgensen MD - 07/01/2021 9:34 AM EDT Rebeca is a 55 year old who presents for an annual gynecologic exam with complaints, has chest wall abscess that opened and drained, is on antibiotics. No menses in 3 years. . Hot flashes staying the same over the past few years. Some night sweats but doesn't disrupt sleep. Worse w/ caffeine. Tried black cohash, didn't work well for her. Postmenopausal: yes HRT use: No. Last Pap: 05/30/2014 normal HPV: 05/18/2014 negative History of abnormal pap: No Last mammogram: 2020 abnormal, needs diagnostic images History of abnormal mammogram: No Sexually active: No OB History T0 L3 SAB1 IAB1 Ectopic0 Multiple0 Live Births3 [employer] Attendant History LMP: 07/28/2015 (Exact Date), Postmenopausal Age at Menarche: Age at First : Age at Menopause: [employer]line Attendant History Comments: Sexual Activity: Yes; Male Contraception: Tubal Ligation, Vasectomy PAST MEDICAL HISTORY Diagnosis Date 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 thyroid nodule PAST SURGICAL HISTORY Procedure Laterality Date COLONOSCOPY FLX DX W/COLLJ SPEC WHEN PFRMD 11/28/2016 Colonoscopy COLONOSCOPY FLX DX W/COLLJ SPEC WHEN PFRMD 01/31/2020 Colonoscopy PAST SURGICAL HISTORY OF 08/2013 biopsy of thyroid TUBAL LIGATION, 89 FAMILY HISTORY Problem Relation Age of Onset Hypertension Mother Allergies Mother Cancer Father lung-smoker COPD Sister None Sister Breast Cancer Paternal Grandmother Cancer Paternal Aunt lung & breast- smoker Breast Cancer Paternal Aunt Prostate Cancer Paternal Uncle Cancer Paternal Uncle adrenal SOCIAL HISTORY Social History Tobacco Use Smoking status: Former Smoker Packs/day: 1.00 Start date: 08/04/1983 Quit date: 08/07/2015 Years since quittin.9 Smokeless tobacco: Never Used Vaping Use Vaping Use: Never used Substance Use Topics Alcohol use: Yes Comment: social Drug use: No REVIEW OF SYSTEMS Abdomen: No abdominal pain, nausea, vomiting, diarrhea, or constipation. No bloating, early satiety, indigestion, or increased flatulence. Bladder: No dysuria, gross hematuria, urinary frequency, urinary urgency, or incontinence Breast: No breast lumps, nipple d/c, overlying skin changes, redness or skin retraction Allergies and current medication updated:Yes EXAM: Ht 5' 5.5 (1.66m) Wt 194 lb (88.0kg) LMP 07/28/2015 BMI 31.78 kg/(m^2). GENERAL: pleasant, female in no apparent distress HEENT: Normocephalic, atraumatic, mucus membranes moist and no lesions NECK: Supple, full range of motion, no adenopathy and thyroid normal DERMATOLOGY: Normal, without lesions, non-icteric and non-hirsute BREAST: soft, non-tender, symmetric, no dominant mass, normal nipple-areolar complex, no lymphadenopathy and no nipple discharge CHEST: Normal inspiratory effort- wall w/ bandage on the open wound ABDOMEN: soft, non-tender and no masses PELVIC: external genitalia normal, normal Bartholin's glands, urethra, Adeline's glands, no vulvar lesions, no cervical lesions, good vaginal support, physiologic discharge present, normal appearing perineal body and perianal region BIMANUAL: uterus normal size, shape and consistency, no adnexal masses and non-tender RECTOVAGINAL: deferred. NEURO: alert and oriented x3,exam grossly non-focal EXTREMITIES: normal ASSESSMENT/PLAN: 1) Health maintenance: Pap done with HPV. Mammogram ordered Colon cancer screening: up to date with screening gurinder martinez, she does not desire therapy for this at this time 2) Follow up one year or sooner as needed Trina Jorgensen MD documented in this encounterB[facility] Miscellaneous Notes* Telephone Encounter - Akira Pierre MD - 06/27/2021 4:23 PM EDT Patient was seen 06/26 * Telephone Encounter - Celeste Salcedo APRN.CNS - 06/24/2021 12:09 PM EDT Consult placed to general surgery, [facility] elise if willing * Telephone Encounter - Akira Pierre MD - 06/20/2021 4:04 PM EDT Check on patient to make sure sees message. Might need to refer to general surgeon to I&D if either not getting better or if getting worse. documented in this encounterBrec[facility] History of Present illness Narrative* Edie Johnson MD - 06/26/2021 4:07 PM EDT Rebeca Wilson 1965 REFERRING PHYSICIAN: Celeste Salcedo APRN.CNS CHIEF COMPLAINT: Consult (cellulitis above right breast) HPI: The patient is a 55 year old female presents with cellulitis of upper right chest wall (not involving breast tissue). She noted an abrasion to the skin at the upper right chest area due to a bra strap clasp. She then noted swelling/redness to the area. She was seen by her PCP and placed on antibiotics. She states that she has been antibiotics for 10 days. She states that there was significant erythema of the entire upper right chest area, but this has decreased in area presently. She denies fevers. She is not diabetic and she does not smoke cigarettes. She is not taking any immunosuppressive medications. She has had no previous infections such as this. She denies possible insect/animal bites to this area. PAST MEDICAL HISTORY Diagnosis Date 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 thyroid nodule PAST SURGICAL HISTORY Procedure Laterality Date COLONOSCOPY FLX DX W/COLLJ SPEC WHEN PFRMD 11/28/2016 Colonoscopy COLONOSCOPY FLX DX W/COLLJ SPEC WHEN PFRMD 01/31/2020 Colonoscopy PAST SURGICAL HISTORY OF 08/2013 biopsy of thyroid TUBAL LIGATION, 89 Current Outpatient Medications Medication Sig meloxicam (MOBIC) 15 mg tablet Take 1 tablet by mouth once daily. buPROPion SR (WELLBUTRIN SR) 150 mg 12 hr tablet Take 1 tablet by mouth twice daily. cyclobenzaprine (FLEXERIL) 10 mg tablet Take 0.5-1 tablets by mouth three times daily as needed forMuscle Spasm. omeprazole (PRILOSEC) 20 mg capsule Take 20 mg by mouth once daily. MULTI-VITAMIN ORAL Take by mouth. fluticasone (FLONASE) 50 mcg/actuation nasal spray Use 2 Sprays in each nostril once daily. Rinse mouth after use. cephALEXin (KEFLEX) 500 mg capsule Take 1 capsule by mouth three times daily for 10 days. ALLERGIES: Patient has no known allergies. PERSONAL HISTORY: Social History Tobacco Use Smoking status: Former Smoker Packs/day: 1.00 Start date: 08/04/1983 Quit date: 08/07/2015 Years since quittin.8 Smokeless tobacco: Never Used Vaping Use Vaping Use: Never used Substance Use Topics Alcohol use: Yes Comment: social Drug use: No FAMILY HISTORY Problem Relation Age of Onset Hypertension Mother Allergies Mother Cancer Father lung-smoker Breast Cancer Paternal Grandmother COPD Sister None Sister Cancer Paternal Aunt lung & breast- smoker Breast Cancer Paternal Aunt Prostate Cancer Paternal Uncle Cancer Paternal Uncle adrenal The review of systems data was entered by the nurse and reviewed by id Nursing Notes: Vineet Meier RN 06/26/2021 4:06 PM Signed REVIEW OF SYSTEMS: General: The patient denies fatigue, denies weight loss, denies weight gain, denies feeling hot, and denies feelings of cold. Eyes: The patient denies glaucoma, denies eye injury/surgery, wears glasses or contacts. Ear/Nose/Throat: The patient denies allergies, denies hayfever, denies ear infections, and denies bloody noses. Cardiovascular: The patient denies chest pain, denies heart disease, denies high blood pressure,denies cardiac stent, denies prior heart attack, denies irregular heart beat, denies high cholesterol, denies poor circulation, denies heart failure, other cardiac issues, denies claudication, denies cold feet, denies peripheral arterial stent. Respiratory: The patient denies tuberculosis, denies pneumonia, denies frequent cough, denies pulmonary embolism, denies shortness of breath, and denies coughing up blood. Gastrointestinal: The patient denies difficulty swallowing, denies acid reflux, denies ulcers, denies vomiting, denies jaundice/hepatitis, denies gallbladder problems, denies black or tarry stools, denies hemorrhoids, denies bleeding from rectum, denies diverticulitis, denies constipation, denies diarrhea, denies loss of stool control, and denies hernias. Kidney/Bladder: The patient denies kidney stones, denies urine infections, and denies bloody urine. Skin: The patient denies a history of skin cancer, denies bleeding/changing moles, and denies a history of skin rash. Neurologic: The patient denies a history of epilepsy/convulsions, denies headaches, denies head/spinal injuries, and denies stroke/TIA. Psychiatric: The patient denies psychiatric medications, denies depression, and denies voices, denies substance abuse. Endocrine: The patient denies thyroid disorders, denies diabetes, and denies hormonal problems. Hematologic: The patient denies a history of bruising, denies bleeding, and denies anemia, denies blood clots. Infections: The patient denies a history of measles and mumps, denies rheumatic fever, and denies sexually transmitted diseases. Musculoskeletal: The patient denies back pain/injury, denies back problems, denies sciatica, deniesknee/foot trouble, NOTES arthritis, or denies gout. When was patient's last Mammogram screening? 10/16/2020 Last Colonoscopy: 11/28/2016 Vineet Meier RN PHYSICAL EXAMINATION: General: The patient is 55 year old female, well nourished, well hydrated in no acute distress. Thepatient is oriented to time, place, and person. VITALS: Blood pressure 112/68, pulse 97, temperature 36.3 C (97.4 F), height 167.6 cm (5' 6), weight 88.5 kg (195 lb), last menstrual period 07/28/2015, SpO2 100 %. Body mass index is 31.47 kg/m . Head: Normal cephalic, atraumatic Eyes: pupils are equally round, sclera are clear/anicteric Neck is supple with no tracheal deviation Chest: area superior to right breast upper chest wall - about 6-7 x 5 cm area of dense induration/erythema. This area feels fibrous. There is no fluctuance. There is skin that is excoriated (no epithelial elements) about 1 x 1.5 cm - with white fibrous tissue noted. Respiratory: Normal respiratory excursion and pattern. Abdominal exam: benign Extremities: no clubbing, cyanosis or edema. Neuro: non focal Psych: normal mood Assessment IMPRESSION: cellulitis of right upper chest wall PLAN: I have discussed the above with the patient. I have offered debridement of the skin and subcutaneous tissues of this area, however this will leave a large wound opening that will have to heal by secondary intention. I have explained the procedure to the patient. I have counseled the patient as to the risks of the procedure, including but not limited to: infection, bleeding, injury to any blood vessels/nerves, scar tissue, continued infection, complications of anesthesia, etc. the patient understands. She is not interested in surgery at this point in time. I have offered further treatment with antibiotics - different type - in hopes that this will quell the cellulitis. The patient agrees with this. I have told her to apply heating pads to area to increased blood flow to this area. I have also told patient to use gauze bandages to the area and to try to avoid the present bra strap to abrade the area. The patient is to follow up with me in two weeks for wound check. The patient acknowledges the above. I have answered all questions to the patient s satisfaction and the patient has no further questions. I have confirmed and edited as necessary, the PFSH and ROS obtained by others. Consultation requested by Celeste Salcedo for an opinion regarding patient's cellulitis. My final recommendations will be communicated back to the requesting physician by way of shared Medical record orletter to requesting physician via US mail. . Diagnoses: (L03.313) Cellulitis of chest wall Return to Clinic: The patient is instructed to follow-up with me as above. Medical Decision Making: Problems: Low: Acute, uncomplicated illness or injury Risk: Moderate: Drug management Medical Decision Making Level: 3 - Low Edie Johnson MD documented in this encounterB[facility]04[facility] Nurse Note* Vineet Meier RN - 06/26/2021 4:04 PM EDT REVIEW OF SYSTEMS: General: The patient denies fatigue, denies weight loss, denies weight gain, denies feeling hot, and denies feelings of cold. Eyes: The patient denies glaucoma, denies eye injury/surgery, wears glasses or contacts. Ear/Nose/Throat: The patient denies allergies, denies hayfever, denies ear infections, and denies bloody noses. Cardiovascular: The patient denies chest pain, denies heart disease, denies high blood pressure,denies cardiac stent, denies prior heart attack, denies irregular heart beat, denies high cholesterol, denies poor circulation, denies heart failure, other cardiac issues, denies claudication, denies cold feet, denies peripheral arterial stent. Respiratory: The patient denies tuberculosis, denies pneumonia, denies frequent cough, denies pulmonary embolism, denies shortness of breath, and denies coughing up blood. Gastrointestinal: The patient denies difficulty swallowing, denies acid reflux, denies ulcers, denies vomiting, denies jaundice/hepatitis, denies gallbladder problems, denies black or tarry stools, denies hemorrhoids, denies bleeding from rectum, denies diverticulitis, denies constipation, denies diarrhea, denies loss of stool control, and denies hernias. Kidney/Bladder: The patient denies kidney stones, denies urine infections, and denies bloody urine. Skin: The patient denies a history of skin cancer, denies bleeding/changing moles, and denies a history of skin rash. Neurologic: The patient denies a history of epilepsy/convulsions, denies headaches, denies head/spinal injuries, and denies stroke/TIA. Psychiatric: The patient denies psychiatric medications, denies depression, and denies voices, denies substance abuse. Endocrine: The patient denies thyroid disorders, denies diabetes, and denies hormonal problems. Hematologic: The patient denies a history of bruising, denies bleeding, and denies anemia, denies blood clots. Infections: The patient denies a history of measles and mumps, denies rheumatic fever, and denies sexually transmitted diseases. Musculoskeletal: The patient denies back pain/injury, denies back problems, denies sciatica, deniesknee/foot trouble, NOTES arthritis, or denies gout. When was patient's last Mammogram screening? 10/16/2020 Last Colonoscopy: 11/28/2016 Vineet Meier RN documented in this encounterB[facility] Miscellaneous Notes* Telephone Encounter - Akira Pierre MD - 06/20/2021 4:02 PM EDT See MyChart reply documented in this encounterBrec[facility]ville [facility]04[facility] History of Present illness Narrative* Akira Pierre MD - 06/07/2021 6:00 PM EDT VIRTUAL VISIT PROGRESS NOTE This is a virtual visit using [employer] video visit. It required patient-provider interaction for themedical decision making as documented below. Rebeca Wilson is a 55 year old female seen for med refills. Wellbutrin needs refill. Works fine. Though not as effective as before. 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 Knee pains and hand pains increased lately. Meloxicam was effective. Nabumetone not as effective. Has not taken anything for a year. Noted abnormal mammogram last October. Tendency to reaction to poison clara, etc. HISTORY REVIEWED (electronic chart updated): PAST MEDICAL HISTORY Diagnosis Date 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 thyroid nodule PAST SURGICAL HISTORY Procedure Laterality Date COLONOSCOP W/ OR W/O [facility] SPEC 11/28/2016 Colonoscopy COLONOSCOP W/ OR W/O [facility] SPEC 01/31/2020 Colonoscopy PAST SURGICAL HISTORY OF 08/2013 biopsy of thyroid TUBAL LIGATION, 91 FAMILY HISTORY Problem Relation Age of Onset Hypertension Mother Allergies Mother Cancer Father lung-smoker Breast Cancer Paternal Grandmother COPD Sister None Sister Cancer Paternal Aunt lung & breast- smoker Breast Cancer Paternal Aunt Prostate Cancer Paternal Uncle Cancer Paternal Uncle adrenal Social History Tobacco Use Smoking status: Former Smoker Packs/day: 1.00 Start date: 08/04/1983 Quit date: 08/07/2015 Years since quittin.8 Smokeless tobacco: Never Used Substance Use Topics Alcohol use: No Drug use: No Current Outpatient Medications Medication Sig buPROPion SR (WELLBUTRIN SR) 150 mg 12 hr tablet Take 1 tablet by mouth twice daily. Take once daily for 3 days then increase to twice daily triamcinolone (KENALOG) 0.025 % cream Apply 1 application to affected area twice daily. cyclobenzaprine (FLEXERIL) 10 mg tablet Take 0.5-1 tablets by mouth three times daily as needed forMuscle Spasm. omeprazole (PRILOSEC) 20 mg capsule Take 20 mg by mouth once daily. nabumetone (RELAFEN) 500 mg tablet Take 1 tablet by mouth twice daily as needed. TAKE WITH FOOD MULTI-VITAMIN ORAL Take by mouth. fluticasone (FLONASE) 50 mcg/actuation nasal spray Use 2 Sprays in each nostril once daily. Rinse mouth after use. No current facility-administered medications for this visit. ALLERGIES No Known Allergies REVIEW OF SYSTEMS: As noted in HPI PHYSICAL EXAMINATION: VIDEO EXAM: (if completed, performed via video enabled technology) GENERAL: alert and appropriate, in no distress, well-hydrated, well nourished and happy, smiling, interactive HEAD: normocephalic, no abnormality or lesion noted EYES: no injection and visual acuity is grossly normal RESPIRATORY: breathing non-labored ASSESSMENT/PLAN: 1. Dysthymia - ICD9: 300.4, ICD10: F34.1 (primary diagnosis) Overall doing well on med but was better before COVID pandemic. 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 Stay on same dose for now Also make sure thyroid labs are okay. Further evaluation and treatment as indicated. - BUPROPION HCL SR 150 MG TABLET,12 HR SUSTAINED-RELEASE - TSH BLD - T4 FREE/FREE THYROX - T3 FREE BLD 2. Postmenopausal symptoms - ICD9: 627.9, ICD10: N95.9 Started on med for smoking cessation then decided to stay on after developed postmenopausal dysthymia symptoms. See above. - BUPROPION HCL SR 150 MG TABLET,12 HR SUSTAINED-RELEASE 3. 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 - TSH BLD - T4 FREE/FREE THYROX - T3 FREE BLD 4. Dermatitis due to plants, including poison clara, sumac, and oak - ICD9: 692.6, ICD10: L25.5 - discussed skin care of rash - follow up if symptoms persist or worsen. - Taper given so would have on hand for prn exposure and reaction. - Discussed can try jewel weed soap or other products to see if helps prevent severe reactions to these plants - PREDNISONE 10 MG TABLET 5. Abnormal mammogram - ICD9: 793.80, ICD10: R92.8 States called to get diagnostic tests done and was told did not have an order; then patient did notcall back or hear back. (After the appointment today, I did find that orders had been placed back in October on 10/24/20--not sure when she had called) Re-ordered the tests since had not seen the prior orders. Further evaluation and treatment as indicated. - [facility] RT - US BREAST LTD RT 6. 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 Screening, lipid - ICD9: V77.91, ICD10: Z13.220 Further evaluation and treatment as indicated. - LIPID PANEL BASIC 8. 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 Encounter for long-term current use of medication - ICD9: V58.69, ICD10: Z79.899 - MELOXICAM 15 MG TABLET - COMP METABOLIC PANEL - CBC 10. Chronic pain of both knees - ICD9: 719.46, 338.29, ICD10: M25.561, M25.562, G89.29 Requests to resume: - MELOXICAM 15 MG TABLET 11. Arthralgia of hands, bilateral - ICD9: 719.44, ICD10: M25.541, M25.542 As noted above: - MELOXICAM 15 MG TABLET Akira Pierre MD .Medical Decision Making: Problems: Moderate: 2+ stable chronic illnesses Data: Unique test(s) ordered: 3+ Risk: Moderate: Drug management Medical Decision Making Level: 4 - Moderate There are no Patient Instructions on file for this visit. I spent a total of 33 minutes on the date of the service which included preparing to see the patient, [id number] patient care, completing clinical documentation, obtaining and/or reviewing separately obtained history, performing a medically appropriate examination, counseling and educating the pat ient/family/caregiver and ordering medications, tests, or procedures Akira Pierre MD documented in this encounterBrecksville [facility]03-29-[facility] Miscellaneous Notes* Telephone Encounter - Amaya Laureano - 06/04/2021 3:20 PM EDT Patient returned call and scheduled virtual appointment on 06/07/21. Amaya Laureano * Telephone Encounter - Irma Lucas Ma - 06/04/2021 2:50 PM EDT Left message for patient to call office * Telephone Encounter - Akira Pierre MD - 06/02/2021 3:03 AM EDT Last saw me 05/2019. She canceled 11/2019 appointment. I was out of the office when had January 2021 appointment scheduled. Has not rescheduled yet. Please assist with making appointment within the next 1 to 2 months. The following approved medication requests have been transmitted electronically. Signed Prescriptions Disp Refills buPROPion SR (WELLBUTRIN SR) 150 mg 12 hr tablet 180 tablet 0 Sig: Take 1 tablet by mouth twice daily. Take once daily for 3 days then increase to twice daily TRINI: No Authorizing Provider: AKIRA PIERRE MD documented in this encounterBrecksville [facility]10-09-[facility] History of Past illness Narrative* Problem Noted Date Resolved Date Smoker 12/16/2011 10/02/2015 Last Assessment & Plan: Chantix too pricey. Prefers to try wellbutrin. Smoking 10 cig/day currently. Attempt at quitting on own was unsuccessful. documented as of this encounter (statuses as of 06/04/2021) [facility] History of Past illness Narrative* Problem Noted Date Resolved Date Smoker 12/16/2011 10/02/2015 Last Assessment & Plan: Chantix too pricey. Prefers to try wellbutrin. Smoking 10 cig/day currently. Attempt at quitting on own was unsuccessful. documented as of this encounter (statuses as of 06/07/2021) [facility] History of Past illness Narrative* Problem Noted Date Resolved Date Smoker 12/16/2011 10/02/2015 Last Assessment & Plan: Chantix too pricey. Prefers to try wellbutrin. Smoking 10 cig/day currently. Attempt at quitting on own was unsuccessful. documented as of this encounter (statuses as of 06/20/2021) [facility] History of Past illness Narrative* Problem Noted Date Resolved Date Smoker 12/16/2011 10/02/2015 Last Assessment & Plan: Chantix too pricey. Prefers to try wellbutrin. Smoking 10 cig/day currently. Attempt at quitting on own was unsuccessful. documented as of this encounter (statuses as of 06/26/2021) [facility] History of Past illness Narrative* Problem Noted Date Resolved Date Smoker 12/16/2011 10/02/2015 Last Assessment & Plan: Chantix too pricey. Prefers to try wellbutrin. Smoking 10 cig/day currently. Attempt at quitting on own was unsuccessful. documented as of this encounter (statuses as of 06/27/2021) [facility] History of Past illness Narrative* Problem Noted Date Resolved Date Smoker 12/16/2011 10/02/2015 Last Assessment & Plan: Chantix too pricey. Prefers to try wellbutrin. Smoking 10 cig/day currently. Attempt at quitting on own was unsuccessful. documented as of this encounter (statuses as of 07/01/2021) [facility] History of Past illness Narrative* Problem Noted Date Resolved Date Smoker 12/16/2011 10/02/2015 Last Assessment & Plan: Chantix too pricey. Prefers to try wellbutrin. Smoking 10 cig/day currently. Attempt at quitting on own was unsuccessful. documented as of this encounter (statuses as of 07/18/2021) [facility] History of Past illness Narrative* Problem Noted Date Resolved Date Smoker 12/16/2011 10/02/2015 Last Assessment & Plan: Chantix too pricey. Prefers to try wellbutrin. Smoking 10 cig/day currently. Attempt at quitting on own was unsuccessful. documented as of this encounter (statuses as of 07/18/2021) [facility] History of Past illness Narrative* Problem Noted Date Resolved Date Smoker 12/16/2011 10/02/2015 Last Assessment & Plan: Chantix too pricey. Prefers to try wellbutrin. Smoking 10 cig/day currently. Attempt at quitting on own was unsuccessful. documented as of this encounter (statuses as of 07/23/2021) [facility] History of Past illness Narrative* Problem Noted Date Resolved Date Smoker 12/16/2011 10/02/2015 Last Assessment & Plan: Chantix too pricey. Prefers to try wellbutrin. Smoking 10 cig/day currently. Attempt at quitting on own was unsuccessful. documented as of this encounter (statuses as of 07/23/2021) [facility] History of Past illness Narrative* Problem Noted Date Resolved Date Smoker 12/16/2011 10/02/2015 Last Assessment & Plan: Chantix too pricey. Prefers to try wellbutrin. Smoking 10 cig/day currently. Attempt at quitting on own was unsuccessful. documented as of this encounter (statuses as of 07/26/2021) [facility] History of Past illness Narrative* Problem Noted Date Resolved Date Smoker 12/16/2011 10/02/2015 Last Assessment & Plan: Chantix too pricey. Prefers to try wellbutrin. Smoking 10 cig/day currently. Attempt at quitting on own was unsuccessful. documented as of this encounter (statuses as of 07/30/2021) [facility] History of Past illness Narrative* Problem Noted Date Resolved Date Smoker 12/16/2011 10/02/2015 Last Assessment & Plan: Chantix too pricey. Prefers to try wellbutrin. Smoking 10 cig/day currently. Attempt at quitting on own was unsuccessful. documented as of this encounter (statuses as of 08/01/2021) [facility] History of Past illness Narrative* Problem Noted Date Resolved Date Smoker 12/16/2011 10/02/2015 Last Assessment & Plan: Chantix too pricey. Prefers to try wellbutrin. Smoking 10 cig/day currently. Attempt at quitting on own was unsuccessful. documented as of this encounter (statuses as of 09/05/2021) [facility] History of Past illness Narrative* Problem Noted Date Resolved Date Smoker 12/16/2011 10/02/2015 Last Assessment & Plan: Chantix too pricey. Prefers to try wellbutrin. Smoking 10 cig/day currently. Attempt at quitting on own was unsuccessful. documented as of this encounter (statuses as of 09/10/2021) [facility] History of Past illness Narrative* Problem Noted Date Resolved Date Smoker 12/16/2011 10/02/2015 Last Assessment & Plan: Chantix too pricey. Prefers to try wellbutrin. Smoking 10 cig/day currently. Attempt at quitting on own was unsuccessful. documented as of this encounter (statuses as of 09/26/2021) [facility] History of Past illness Narrative* Problem Noted Date Resolved Date Smoker 12/16/2011 10/02/2015 Last Assessment & Plan: Chantix too pricey. Prefers to try wellbutrin. Smoking 10 cig/day currently. Attempt at quitting on own was unsuccessful. documented as of this encounter (statuses as of 09/26/2021) [facility] History of Past illness Narrative* Problem Noted Date Resolved Date Smoker 12/16/2011 10/02/2015 Last Assessment & Plan: Chantix too pricey. Prefers to try wellbutrin. Smoking 10 cig/day currently. Attempt at quitting on own was unsuccessful. documented as of this encounter (statuses as of 09/27/2021) [facility] History of Past illness Narrative* Problem Noted Date Resolved Date Smoker 12/16/2011 10/02/2015 Last Assessment & Plan: Chantix too pricey. Prefers to try wellbutrin. Smoking 10 cig/day currently. Attempt at quitting on own was unsuccessful. documented as of this encounter (statuses as of 09/27/2021) [facility] History of Past illness Narrative* Problem Noted Date Resolved Date Smoker 12/16/2011 10/02/2015 Last Assessment & Plan: Chantix too pricey. Prefers to try wellbutrin. Smoking 10 cig/day currently. Attempt at quitting on own was unsuccessful. documented as of this encounter (statuses as of 10/01/2021) [facility] History of Past illness Narrative* Problem Noted Date Resolved Date Smoker 12/16/2011 10/02/2015 Last Assessment & Plan: Chantix too pricey. Prefers to try wellbutrin. Smoking 10 cig/day currently. Attempt at quitting on own was unsuccessful. documented as of this encounter (statuses as of 10/02/2021) [facility] History of Past illness Narrative* Problem Noted Date Resolved Date Smoker 12/16/2011 10/02/2015 Last Assessment & Plan: Chantix too pricey. Prefers to try wellbutrin. Smoking 10 cig/day currently. Attempt at quitting on own was unsuccessful. documented as of this encounter (statuses as of 10/04/2021) [facility] History of Past illness Narrative* Problem Noted Date Resolved Date Smoker 12/16/2011 10/02/2015 Last Assessment & Plan: Chantix too pricey. Prefers to try wellbutrin. Smoking 10 cig/day currently. Attempt at quitting on own was unsuccessful. documented as of this encounter (statuses as of 10/08/2021) [facility] History of Past illness Narrative* Problem Noted Date Resolved Date Smoker 12/16/2011 10/02/2015 Last Assessment & Plan: Chantix too pricey. Prefers to try wellbutrin. Smoking 10 cig/day currently. Attempt at quitting on own was unsuccessful. documented as of this encounter (statuses as of 10/15/2021) [facility] History of Past illness Narrative* Problem Noted Date Resolved Date Smoker 12/16/2011 10/02/2015 Last Assessment & Plan: Chantix too pricey. Prefers to try wellbutrin. Smoking 10 cig/day currently. Attempt at quitting on own was unsuccessful. documented as of this encounter (statuses as of 10/15/2021) [facility] History of Past illness Narrative* Problem Noted Date Resolved Date Smoker 12/16/2011 10/02/2015 Last Assessment & Plan: Chantix too pricey. Prefers to try wellbutrin. Smoking 10 cig/day currently. Attempt at quitting on own was unsuccessful. documented as of this encounter (statuses as of 10/24/2021) [facility] History of Past illness Narrative* Problem Noted Date Resolved Date Smoker 12/16/2011 10/02/2015 Last Assessment & Plan: Chantix too pricey. Prefers to try wellbutrin. Smoking 10 cig/day currently. Attempt at quitting on own was unsuccessful. documented as of this encounter (statuses as of 10/25/2021) [facility] History of Past illness Narrative* Problem Noted Date Resolved Date Smoker 12/16/2011 10/02/2015 Last Assessment & Plan: Chantix too pricey. Prefers to try wellbutrin. Smoking 10 cig/day currently. Attempt at quitting on own was unsuccessful. documented as of this encounter (statuses as of 10/29/2021) [facility] History of Past illness Narrative* Problem Noted Date Resolved Date Smoker 12/16/2011 10/02/2015 Last Assessment & Plan: Chantix too pricey. Prefers to try wellbutrin. Smoking 10 cig/day currently. Attempt at quitting on own was unsuccessful. documented as of this encounter (statuses as of 10/31/2021) [facility] History of Past illness Narrative* Problem Noted Date Resolved Date Smoker 12/16/2011 10/02/2015 Last Assessment & Plan: Chantix too pricey. Prefers to try wellbutrin. Smoking 10 cig/day currently. Attempt at quitting on own was unsuccessful. documented as of this encounter (statuses as of 11/05/2021) [facility] History of Past illness Narrative* Problem Noted Date Resolved Date Smoker 12/16/2011 10/02/2015 Last Assessment & Plan: Chantix too pricey. Prefers to try wellbutrin. Smoking 10 cig/day currently. Attempt at quitting on own was unsuccessful. documented as of this encounter (statuses as of 11/07/2021) [facility] History of Past illness Narrative* Problem Noted Date Resolved Date Smoker 12/16/2011 10/02/2015 Last Assessment & Plan: Chantix too pricey. Prefers to try wellbutrin. Smoking 10 cig/day currently. Attempt at quitting on own was unsuccessful. documented as of this encounter (statuses as of 11/15/2021) [facility] History of Past illness Narrative* Problem Noted Date Resolved Date Smoker 12/16/2011 10/02/2015 Last Assessment & Plan: Chantix too pricey. Prefers to try wellbutrin. Smoking 10 cig/day currently. Attempt at quitting on own was unsuccessful. documented as of this encounter (statuses as of 11/15/2021) [facility] History of Past illness Narrative* Problem Noted Date Resolved Date Smoker 12/16/2011 10/02/2015 Last Assessment & Plan: Chantix too pricey. Prefers to try wellbutrin. Smoking 10 cig/day currently. Attempt at quitting on own was unsuccessful. documented as of this encounter (statuses as of 11/15/2021) [facility] History of Past illness Narrative* Problem Noted Date Resolved Date Smoker 12/16/2011 10/02/2015 Last Assessment & Plan: Chantix too pricey. Prefers to try wellbutrin. Smoking 10 cig/day currently. Attempt at quitting on own was unsuccessful. documented as of this encounter (statuses as of 11/18/2021) [facility] History of Past illness Narrative* Problem Noted Date Resolved Date Smoker 12/16/2011 10/02/2015 Last Assessment & Plan: Chantix too pricey. Prefers to try wellbutrin. Smoking 10 cig/day currently. Attempt at quitting on own was unsuccessful. documented as of this encounter (statuses as of 11/18/2021) [facility] History of Past illness Narrative* Problem Noted Date Resolved Date Smoker 12/16/2011 10/02/2015 Last Assessment & Plan: Chantix too pricey. Prefers to try wellbutrin. Smoking 10 cig/day currently. Attempt at quitting on own was unsuccessful. documented as of this encounter (statuses as of 11/20/2021) [facility] History of Past illness Narrative* Problem Noted Date Resolved Date Smoker 12/16/2011 10/02/2015 Last Assessment & Plan: Chantix too pricey. Prefers to try wellbutrin. Smoking 10 cig/day currently. Attempt at quitting on own was unsuccessful. documented as of this encounter (statuses as of 11/22/2021) [facility] History of Past illness Narrative* Problem Noted Date Resolved Date Smoker 12/16/2011 10/02/2015 Last Assessment & Plan: Chantix too pricey. Prefers to try wellbutrin. Smoking 10 cig/day currently. Attempt at quitting on own was unsuccessful. documented as of this encounter (statuses as of 11/26/2021) [facility] History of Past illness Narrative* Problem Noted Date Resolved Date Smoker 12/16/2011 10/02/2015 Last Assessment & Plan: Chantix too pricey. Prefers to try wellbutrin. Smoking 10 cig/day currently. Attempt at quitting on own was unsuccessful. documented as of this encounter (statuses as of 12/02/2021) [facility] History of Past illness Narrative* Problem Noted Date Resolved Date Smoker 12/16/2011 10/02/2015 Last Assessment & Plan: Chantix too pricey. Prefers to try wellbutrin. Smoking 10 cig/day currently. Attempt at quitting on own was unsuccessful. documented as of this encounter (statuses as of 01/18/2022) [facility] History of Past illness Narrative* Problem Noted Date Resolved Date Smoker 12/16/2011 10/02/2015 Last Assessment & Plan: Chantix too pricey. Prefers to try wellbutrin. Smoking 10 cig/day currently. Attempt at quitting on own was unsuccessful. documented as of this encounter (statuses as of 02/12/2022) [facility] History of Past illness Narrative* Problem Noted Date Resolved Date Smoker 12/16/2011 10/02/2015 Last Assessment & Plan: Chantix too pricey. Prefers to try wellbutrin. Smoking 10 cig/day currently. Attempt at quitting on own was unsuccessful. documented as of this encounter (statuses as of 02/13/2022) [facility] History of Past illness Narrative* Problem Noted Date Resolved Date Smoker 12/16/2011 10/02/2015 Last Assessment & Plan: Chantix too pricey. Prefers to try wellbutrin. Smoking 10 cig/day currently. Attempt at quitting on own was unsuccessful. documented as of this encounter (statuses as of 02/13/2022) [facility] History of Past illness Narrative* Problem Noted Date Resolved Date Smoker 12/16/2011 10/02/2015 Last Assessment & Plan: Chantix too pricey. Prefers to try wellbutrin. Smoking 10 cig/day currently. Attempt at quitting on own was unsuccessful. documented as of this encounter (statuses as of 02/14/2022) [facility] History of Past illness Narrative* Problem Noted Date Resolved Date Smoker 12/16/2011 10/02/2015 Last Assessment & Plan: Chantix too pricey. Prefers to try wellbutrin. Smoking 10 cig/day currently. Attempt at quitting on own was unsuccessful. documented as of this encounter (statuses as of 03/19/2022) [facility] History of Past illness Narrative* Problem Noted Date Resolved Date Smoker 12/16/2011 10/02/2015 Last Assessment & Plan: Chantix too pricey. Prefers to try wellbutrin. Smoking 10 cig/day currently. Attempt at quitting on own was unsuccessful. documented as of this encounter (statuses as of 03/25/2022) [facility] History of Past illness Narrative* Problem Noted Date Resolved Date Smoker 12/16/2011 10/02/2015 Last Assessment & Plan: Chantix too pricey. Prefers to try wellbutrin. Smoking 10 cig/day currently. Attempt at quitting on own was unsuccessful. documented as of this encounter (statuses as of 04/23/2022) [facility] History of Past illness Narrative* Problem Noted Date Resolved Date Smoker 12/16/2011 10/02/2015 Last Assessment & Plan: Chantix too pricey. Prefers to try wellbutrin. Smoking 10 cig/day currently. Attempt at quitting on own was unsuccessful. documented as of this encounter (statuses as of 04/24/2022) [facility] History of Past illness Narrative* Problem Noted Date Resolved Date Smoker 12/16/2011 10/02/2015 Last Assessment & Plan: Chantix too pricey. Prefers to try wellbutrin. Smoking 10 cig/day currently. Attempt at quitting on own was unsuccessful. documented as of this encounter (statuses as of 05/06/2022) [facility] History of Past illness Narrative* Problem Noted Date Resolved Date Smoker 12/16/2011 10/02/2015 Last Assessment & Plan: Chantix too pricey. Prefers to try wellbutrin. Smoking 10 cig/day currently. Attempt at quitting on own was unsuccessful. documented as of this encounter (statuses as of 05/06/2022) [facility] History of Past illness Narrative* Problem Noted Date Resolved Date Smoker 12/16/2011 10/02/2015 Last Assessment & Plan: Chantix too pricey. Prefers to try wellbutrin. Smoking 10 cig/day currently. Attempt at quitting on own was unsuccessful. documented as of this encounter (statuses as of 05/09/2022) [facility] History of Past illness Narrative* Problem Noted Date Resolved Date Smoker 12/16/2011 10/02/2015 Last Assessment & Plan: Chantix too pricey. Prefers to try wellbutrin. Smoking 10 cig/day currently. Attempt at quitting on own was unsuccessful. documented as of this encounter (statuses as of 05/13/2022) [facility] History of Past illness Narrative* Problem Noted Date Resolved Date Smoker 12/16/2011 10/02/2015 Last Assessment & Plan: Chantix too pricey. Prefers to try wellbutrin. Smoking 10 cig/day currently. Attempt at quitting on own was unsuccessful. documented as of this encounter (statuses as of 05/14/2022) [facility] History of Past illness Narrative* Problem Noted Date Resolved Date Smoker 12/16/2011 10/02/2015 Last Assessment & Plan: Chantix too pricey. Prefers to try wellbutrin. Smoking 10 cig/day currently. Attempt at quitting on own was unsuccessful. documented as of this encounter (statuses as of 06/02/2022) [facility] History of Past illness Narrative* Problem Noted Date Resolved Date Smoker 12/16/2011 10/02/2015 Last Assessment & Plan: Chantix too pricey. Prefers to try wellbutrin. Smoking 10 cig/day currently. Attempt at quitting on own was unsuccessful. documented as of this encounter (statuses as of 06/05/2022) [facility] History of Past illness Narrative* Problem Noted Date Resolved Date Smoker 12/16/2011 10/02/2015 Last Assessment & Plan: Chantix too pricey. Prefers to try wellbutrin. Smoking 10 cig/day currently. Attempt at quitting on own was unsuccessful. documented as of this encounter (statuses as of 06/09/2022) [facility] History of Past illness Narrative* Problem Noted Date Resolved Date Smoker 12/16/2011 10/02/2015 Last Assessment & Plan: Chantix too pricey. Prefers to try wellbutrin. Smoking 10 cig/day currently. Attempt at quitting on own was unsuccessful. documented as of this encounter (statuses as of 06/20/2022) [facility] History of Past illness Narrative* Problem Noted Date Resolved Date Smoker 12/16/2011 10/02/2015 Last Assessment & Plan: Chantix too pricey. Prefers to try wellbutrin. Smoking 10 cig/day currently. Attempt at quitting on own was unsuccessful. documented as of this encounter (statuses as of 06/23/2022) [facility] History of Past illness Narrative* Problem Noted Date Resolved Date Smoker 12/16/2011 10/02/2015 Last Assessment & Plan: Chantix too pricey. Prefers to try wellbutrin. Smoking 10 cig/day currently. Attempt at quitting on own was unsuccessful. documented as of this encounter (statuses as of 07/01/2022) [facility] History of Past illness Narrative* Problem Noted Date Resolved Date Smoker 12/16/2011 10/02/2015 Last Assessment & Plan: Chantix too pricey. Prefers to try wellbutrin. Smoking 10 cig/day currently. Attempt at quitting on own was unsuccessful. documented as of this encounter (statuses as of 07/01/2022) [facility] History of Past illness Narrative* Problem Noted Date Resolved Date Smoker 12/16/2011 10/02/2015 Last Assessment & Plan: Chantix too pricey. Prefers to try wellbutrin. Smoking 10 cig/day currently. Attempt at quitting on own was unsuccessful. documented as of this encounter (statuses as of 07/12/2022) [place] [address]-09-2012 History of Past illness Narrative* Problem Noted Date Resolved Date Smoker 12/16/2011 10/02/2015 Last Assessment & Plan: Chantix too pricey. Prefers to try wellbutrin. Smoking 10 cig/day currently. Attempt at quitting on own was unsuccessful. documented as of this encounter (statuses as of 08/15/2022) [facility] History of Past illness Narrative* Problem Noted Date Resolved Date Smoker 12/16/2011 10/02/2015 Last Assessment & Plan: Chantix too pricey. Prefers to try wellbutrin. Smoking 10 cig/day currently. Attempt at quitting on own was unsuccessful. documented as of this encounter (statuses as of 08/06/2022) [facility] History of Past illness Narrative* Problem Noted Date Resolved Date Smoker 12/16/2011 10/02/2015 Last Assessment & Plan: Chantix too pricey. Prefers to try wellbutrin. Smoking 10 cig/day currently. Attempt at quitting on own was unsuccessful. documented as of this encounter (statuses as of 08/06/2022) [facility] History of Past illness Narrative* Problem Noted Date Resolved Date Smoker 12/16/2011 10/02/2015 Last Assessment & Plan: Chantix too pricey. Prefers to try wellbutrin. Smoking 10 cig/day currently. Attempt at quitting on own was unsuccessful. documented as of this encounter (statuses as of 08/07/2022) [facility] History of Past illness Narrative* Problem Noted Date Resolved Date Smoker 12/16/2011 10/02/2015 Last Assessment & Plan: Chantix too pricey. Prefers to try wellbutrin. Smoking 10 cig/day currently. Attempt at quitting on own was unsuccessful. documented as of this encounter (statuses as of 08/22/2022) [facility] History of Past illness Narrative* Problem Noted Date Resolved Date Smoker 12/16/2011 10/02/2015 Last Assessment & Plan: Chantix too pricey. Prefers to try wellbutrin. Smoking 10 cig/day currently. Attempt at quitting on own was unsuccessful. documented as of this encounter (statuses as of 08/26/2022) [facility] History of Past illness Narrative* Problem Noted Date Resolved Date Smoker 12/16/2011 10/02/2015 Last Assessment & Plan: Chantix too pricey. Prefers to try wellbutrin. Smoking 10 cig/day currently. Attempt at quitting on own was unsuccessful. documented as of this encounter (statuses as of 09/02/2022) [facility] History of Past illness Narrative* Problem Noted Date Resolved Date Smoker 12/16/2011 10/02/2015 Last Assessment & Plan: Chantix too pricey. Prefers to try wellbutrin. Smoking 10 cig/day currently. Attempt at quitting on own was unsuccessful. documented as of this encounter (statuses as of 09/05/2022) [facility] History of Past illness Narrative* Problem Noted Date Resolved Date Smoker 12/16/2011 10/02/2015 Last Assessment & Plan: Chantix too pricey. Prefers to try wellbutrin. Smoking 10 cig/day currently. Attempt at quitting on own was unsuccessful. documented as of this encounter (statuses as of 09/05/2022) [facility] History of Past illness Narrative* Problem Noted Date Resolved Date Smoker 12/16/2011 10/02/2015 Last Assessment & Plan: Chantix too pricey. Prefers to try wellbutrin. Smoking 10 cig/day currently. Attempt at quitting on own was unsuccessful. documented as of this encounter (statuses as of 09/10/2022) [facility] History of Past illness Narrative* Problem Noted Date Diagnosed Date Resolved Date Smoker 12/16/2011 10/02/2015 Last Assessment & Plan: Chantix too pricey. Prefers to try wellbutrin. Smoking 10 cig/day currently. Attempt at quitting on own was unsuccessful. documented as of this encounter (statuses as of 10/01/2022) [facility] History of Past illness Narrative* Problem Noted Date Diagnosed Date Resolved Date Smoker 12/16/2011 10/02/2015 Last Assessment & Plan: Chantix too pricey. Prefers to try wellbutrin. Smoking 10 cig/day currently. Attempt at quitting on own was unsuccessful. documented as of this encounter (statuses as of 11/07/2022) [facility] History of Past illness Narrative* Problem Noted Date Diagnosed Date Resolved Date Smoker 12/16/2011 10/02/2015 Last Assessment & Plan: Chantix too pricey. Prefers to try wellbutrin. Smoking 10 cig/day currently. Attempt at quitting on own was unsuccessful. documented as of this encounter (statuses as of 11/18/2022) [facility] History of Past illness Narrative* Problem Noted Date Diagnosed Date Resolved Date Smoker 12/16/2011 10/02/2015 Last Assessment & Plan: Chantix too pricey. Prefers to try wellbutrin. Smoking 10 cig/day currently. Attempt at quitting on own was unsuccessful. documented as of this encounter (statuses as of 11/22/2022) [facility] History of Past illness Narrative* Problem Noted Date Diagnosed Date Resolved Date Smoker 12/16/2011 10/02/2015 Last Assessment & Plan: Chantix too pricey. Prefers to try wellbutrin. Smoking 10 cig/day currently. Attempt at quitting on own was unsuccessful. documented as of this encounter (statuses as of 11/24/2022) [facility] History of Past illness Narrative* Problem Noted Date Diagnosed Date Resolved Date Smoker 12/16/2011 10/02/2015 Last Assessment & Plan: Chantix too pricey. Prefers to try wellbutrin. Smoking 10 cig/day currently. Attempt at quitting on own was unsuccessful. documented as of this encounter (statuses as of 11/25/2022) [facility] History of Past illness Narrative* Problem Noted Date Diagnosed Date Resolved Date Smoker 12/16/2011 10/02/2015 Last Assessment & Plan: Chantix too pricey. Prefers to try wellbutrin. Smoking 10 cig/day currently. Attempt at quitting on own was unsuccessful. documented as of this encounter (statuses as of 12/16/2022) [facility] History of Past illness Narrative* Problem Noted Date Diagnosed Date Resolved Date Smoker 12/16/2011 10/02/2015 Last Assessment & Plan: Chantix too pricey. Prefers to try wellbutrin. Smoking 10 cig/day currently. Attempt at quitting on own was unsuccessful. documented as of this encounter (statuses as of 01/12/2023) [facility] History of Past illness Narrative* Problem Noted Date Diagnosed Date Resolved Date Smoker 12/16/2011 10/02/2015 Last Assessment & Plan: Chantix too pricey. Prefers to try wellbutrin. Smoking 10 cig/day currently. Attempt at quitting on own was unsuccessful. documented as of this encounter (statuses as of 01/12/2023) [facility] History of Past illness Narrative* Problem Noted Date Diagnosed Date Resolved Date Smoker 12/16/2011 10/02/2015 Last Assessment & Plan: Chantix too pricey. Prefers to try wellbutrin. Smoking 10 cig/day currently. Attempt at quitting on own was unsuccessful. documented as of this encounter (statuses as of 01/13/2023) [facility] History of Past illness Narrative* Problem Noted Date Diagnosed Date Resolved Date Smoker 12/16/2011 10/02/2015 Last Assessment & Plan: Chantix too pricey. Prefers to try wellbutrin. Smoking 10 cig/day currently. Attempt at quitting on own was unsuccessful. documented as of this encounter (statuses as of 01/15/2023) [facility] History of Past illness Narrative* Problem Noted Date Diagnosed Date Resolved Date Smoker 12/16/2011 10/02/2015 Last Assessment & Plan: Chantix too pricey. Prefers to try wellbutrin. Smoking 10 cig/day currently. Attempt at quitting on own was unsuccessful. documented as of this encounter (statuses as of 01/29/2023) [facility] History of Past illness Narrative* Problem Noted Date Diagnosed Date Resolved Date Smoker 12/16/2011 10/02/2015 Last Assessment & Plan: Chantix too pricey. Prefers to try wellbutrin. Smoking 10 cig/day currently. Attempt at quitting on own was unsuccessful. documented as of this encounter (statuses as of 02/01/2023) [facility] History of Past illness Narrative* Problem Noted Date Diagnosed Date Resolved Date Smoker 12/16/2011 10/02/2015 Last Assessment & Plan: Chantix too pricey. Prefers to try wellbutrin. Smoking 10 cig/day currently. Attempt at quitting on own was unsuccessful. documented as of this encounter (statuses as of 02/13/2023) [facility] History of Past illness Narrative* Problem Noted Date Diagnosed Date Resolved Date Smoker 12/16/2011 10/02/2015 Last Assessment & Plan: Chantix too pricey. Prefers to try wellbutrin. Smoking 10 cig/day currently. Attempt at quitting on own was unsuccessful. documented as of this encounter (statuses as of 04/24/2023) [facility] History of Past illness Narrative* Problem Noted Date Diagnosed Date Resolved Date Smoker 12/16/2011 10/02/2015 Last Assessment & Plan: Chantix too pricey. Prefers to try wellbutrin. Smoking 10 cig/day currently. Attempt at quitting on own was unsuccessful. documented as of this encounter (statuses as of 04/25/2023) [facility] History of Past illness Narrative* Problem Noted Date Diagnosed Date Resolved Date Smoker 12/16/2011 10/02/2015 Last Assessment & Plan: Chantix too pricey. Prefers to try wellbutrin. Smoking 10 cig/day currently. Attempt at quitting on own was unsuccessful. documented as of this encounter (statuses as of 05/14/2023) [facility] History of Past illness Narrative* Problem Noted Date Diagnosed Date Resolved Date Smoker 12/16/2011 10/02/2015 Last Assessment & Plan: Chantix too pricey. Prefers to try wellbutrin. Smoking 10 cig/day currently. Attempt at quitting on own was unsuccessful. documented as of this encounter (statuses as of 05/22/2023) [facility] History of Past illness Narrative* Problem Noted Date Diagnosed Date Resolved Date Smoker 12/16/2011 10/02/2015 Last Assessment & Plan: Chantix too pricey. Prefers to try wellbutrin. Smoking 10 cig/day currently. Attempt at quitting on own was unsuccessful. documented as of this encounter (statuses as of 05/26/2023) [facility] History of Past illness Narrative* Problem Noted Date Diagnosed Date Resolved Date Smoker 12/16/2011 10/02/2015 Last Assessment & Plan: Chantix too pricey. Prefers to try wellbutrin. Smoking 10 cig/day currently. Attempt at quitting on own was unsuccessful. documented as of this encounter (statuses as of 05/26/2023) [facility] History of Past illness Narrative* Problem Noted Date Diagnosed Date Resolved Date Smoker 12/16/2011 10/02/2015 Last Assessment & Plan: Chantix too pricey. Prefers to try wellbutrin. Smoking 10 cig/day currently. Attempt at quitting on own was unsuccessful. documented as of this encounter (statuses as of 05/27/2023) [facility] History of Past illness Narrative* Problem Noted Date Diagnosed Date Resolved Date Smoker 12/16/2011 10/02/2015 Last Assessment & Plan: Chantix too pricey. Prefers to try wellbutrin. Smoking 10 cig/day currently. Attempt at quitting on own was unsuccessful. documented as of this encounter (statuses as of 06/01/2023) [facility] History of Past illness Narrative* Problem Noted Date Diagnosed Date Resolved Date Smoker 12/16/2011 10/02/2015 Last Assessment & Plan: Chantix too pricey. Prefers to try wellbutrin. Smoking 10 cig/day currently. Attempt at quitting on own was unsuccessful. documented as of this encounter (statuses as of 06/02/2023) [facility] History of Past illness Narrative* Problem Noted Date Diagnosed Date Resolved Date Smoker 12/16/2011 10/02/2015 Last Assessment & Plan: Chantix too pricey. Prefers to try wellbutrin. Smoking 10 cig/day currently. Attempt at quitting on own was unsuccessful. documented as of this encounter (statuses as of 06/03/2023) [facility] History of Past illness Narrative* Problem Noted Date Diagnosed Date Resolved Date Smoker 12/16/2011 10/02/2015 Last Assessment & Plan: Chantix too pricey. Prefers to try wellbutrin. Smoking 10 cig/day currently. Attempt at quitting on own was unsuccessful. documented as of this encounter (statuses as of 06/10/2023) [facility] History of Past illness Narrative* Problem Noted Date Diagnosed Date Resolved Date Smoker 12/16/2011 10/02/2015 Last Assessment & Plan: Chantix too pricey. Prefers to try wellbutrin. Smoking 10 cig/day currently. Attempt at quitting on own was unsuccessful. documented as of this encounter (statuses as of 06/16/2023) [facility] History of Past illness Narrative* Problem Noted Date Diagnosed Date Resolved Date Smoker 12/16/2011 10/02/2015 Last Assessment & Plan: Chantix too pricey. Prefers to try wellbutrin. Smoking 10 cig/day currently. Attempt at quitting on own was unsuccessful. documented as of this encounter (statuses as of 06/26/2023) [facility] Perimenopausal symptoms Symptomatic menopausal or female climacteric states [facility] Diagnosis Dysthymia- Primary Dysthymic disorder Postmenopausal symptoms Unspecified menopausal and postmenopausal disorder Nontoxic multinodular goiter Dermatitis due to plants, including poison clara, sumac, and oak Contact dermatitis and other eczema due to plants (except food) Abnormal mammogram Abnormal mammogram, unspecified Need for hepatitis C screening test Special screening examination for other specified viral diseases Screening, lipid Screening for lipoid disorders Encounter for screening for HIV Encounter for long-term current use of medication Chronic pain of both knees Arthralgia of hands, bilateral [facility] Diagnosis Cellulitis of chest wall Cellulitis and abscess of trunk [facility] Diagnosis Cellulitis of female breast- Primary Inflammatory disease of breast [facility] Diagnosis Encounter for gynecological examination (general) (routine) without abnormal findings Encounter for screening mammogram for breast cancer [facility] Diagnosis Abnormal mammogram Abnormal mammogram, unspecified [facility] Diagnosis Abnormal mammogram- Primary Abnormal mammogram, unspecified [facility]* Diagnosis Back pain with radiation Backache, unspecified Pelvic pain in female Unspecified symptom associated with female genital organs [facility] Diagnosis Abnormal mammogram- Primary Abnormal mammogram, unspecified [facility]* Diagnosis Malignant neoplasm of upper-outer quadrant of right breast in female, estrogen receptor positive (HCC)- Primary [facility]* Diagnosis 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, estrogen receptor positive (HCC)- Primary Invasive ductal carcinoma of breast, 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, estrogen receptor positive (HCC) [facility] Diagnosis Invasive ductal carcinoma of breast, right (HCC)- Primary Malignant neoplasm of 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, 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, 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, estrogen receptor positive (HCC) [facility] Diagnosis Malignant neoplasm of 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, estrogen receptor positive (HCC)- Primary Encounter for screening for osteoporosis Special screening for osteoporosis Asymptomatic postmenopausal status Invasive ductal carcinoma of breast, 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, estrogen receptor positive (HCC) [facility] [place] [facility] Diagnosis Screening mammogram, encounter for- Primary Malignant neoplasm of 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, estrogen receptor positive (HCC) Family history of breast cancer Family history of malignant neoplasm of breast Invasive ductal carcinoma of breast, 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, estrogen receptor positive (HCC) [facility] [place] [facility]* Diagnosis Malignant neoplasm of 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, estrogen receptor positive (HCC)- Primary Invasive ductal carcinoma of breast, 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, estrogen receptor positive (HCC) [facility] [place] [facility]* Diagnosis Preoperative examination- Primary Preoperative examination, unspecified Invasive ductal carcinoma of breast, 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, estrogen receptor positive (HCC) History of COVID-19 Gastroesophageal reflux disease, unspecified whether esophagitis present Mood disorder (HCC) Unspecified episodic mood disorder Class 1 obesity with body mass index (BMI) of 31.0 to 31.9 in adult, unspecified obesity type, unspecified whether serious comorbidity present Invasive ductal carcinoma of breast, 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, estrogen receptor positive (HCC) [facility] [place] [facility]* Diagnosis Invasive ductal carcinoma of breast, 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, estrogen receptor positive (HCC) Obesity, Class I, BMI 30-34.9 Obesity, unspecified [facility] [place] [facility] Diagnosis Malignant neoplasm of 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, estrogen receptor positive (HCC)- Primary [facility] [place] [facility] Diagnosis Malignant neoplasm of 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, estrogen receptor positive (HCC)- Primary [facility] [place] [facility] Diagnosis 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, estrogen receptor positive (HCC)- Primary [facility] [place] [facility] Diagnosis Malignant neoplasm of 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, estrogen receptor positive (HCC)- Primary [facility] [place] [facility] Diagnosis Encounter for screening for osteoporosis Special screening for osteoporosis Asymptomatic postmenopausal status [facility] [place] [facility] Diagnosis Family history of cancer- Primary Family history of unspecified malignant neoplasm Screening mammogram, encounter for Family history of breast cancer Family history of malignant neoplasm of breast Malignant neoplasm of 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, estrogen receptor positive (HCC) Family history of colon cancer Family history of malignant neoplasm of gastrointestinal tract [facility] [place] [facility] Diagnosis Malignant neoplasm of 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, estrogen receptor positive (HCC) Other chest pain [facility] [place] [facility] Diagnosis Encounter for long-term current use of medication Chronic pain of both knees Arthralgia of hands, bilateral [facility] [place] [facility]* Diagnosis Routine medical exam- Primary Routine general medical examination at a health care facility Back pain with radiation Backache, unspecified Pelvic pain in female Unspecified symptom associated with female genital organs [facility] [place] [facility] Diagnosis Malignant neoplasm of 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, estrogen receptor positive (HCC)- Primary Examination of participant in clinical trial Vitamin D deficiency Unspecified vitamin D deficiency [facility] [place] [facility]* Diagnosis Examination of participant in clinical trial- Primary [facility] [place] [facility]* Diagnosis Malignant neoplasm of 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, estrogen receptor positive (HCC)- Primary Vitamin D deficiency Unspecified vitamin D deficiency [facility] this [facility] [place] [facility]* Diagnosis Abnormal mammogram- Primary Abnormal mammogram, unspecified Personal history of breast cancer Personal history of malignant neoplasm of breast documented [facility] this [facility] [place] [facility]* Diagnosis Abnormal mammogram- Primary Abnormal mammogram, unspecified Invasive ductal carcinoma of breast, right (HCC) [facility] [place] [facility]* Diagnosis Invasive ductal carcinoma of breast, right (HCC)- Primary [facility] noteNo assessment information availableWAult[facility] Work Phone: Evaluation note* Diagnosis Examination of participant in clinical trial- Primary [facility] Diagnosis Invasive ductal carcinoma of breast, right (HCC)- Primary Examination of participant in clinical trial Rash Rash and other nonspecific skin eruption Persistent depressive disorder [facility]* Diagnosis Malignant neoplasm of 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, estrogen receptor positive (HCC) [facility]* Diagnosis Encounter for long-term current use of medication Chronic pain of both knees Arthralgia of hands, bilateral [facility] this [facility] [place] [facility]* Diagnosis Gastroesophageal reflux disease, unspecified whether esophagitis present- Primary Encounter for immunization Need for other specified prophylactic vaccination against single bacterial disease Fatigue, unspecified type Thyroid nodule Nontoxic uninodular goiter Nontoxic multinodular goiter Invasive ductal carcinoma of breast, right (HCC) Mood disorder (HCC) Unspecified episodic mood disorder documented [facility] this encounter [facility] [place] [facility]* Diagnosis Low TSH level- Primary Nonspecific abnormal results of thyroid function study [facility] [place] [facility]* Diagnosis Encounter for gynecological examination (general) (routine) without abnormal findings- Primary Malignant neoplasm of 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, estrogen receptor positive (HCC) [facility] Diagnosis Low TSH level- Primary Nonspecific abnormal results of thyroid function study Thyroid nodule Nontoxic uninodular goiter documented [facility] this [facility] [place] [facility]* Diagnosis Thyroid nodule- Primary Nontoxic uninodular goiter Low TSH level Nonspecific abnormal results of thyroid function study Malignant neoplasm of 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, estrogen receptor positive (HCC) [facility] Diagnosis Examination of participant in clinical trial- Primary [facility] Diagnosis Low TSH level Nonspecific abnormal results of thyroid function study Thyroid nodule Nontoxic uninodular goiter [facility] Diagnosis Low TSH level- Primary Nonspecific abnormal results of thyroid function study Thyroid nodule Nontoxic uninodular goiter [facility]* Diagnosis Neoplasm of uncertain behavior of skin of cheek- Primary Neoplasm of uncertain behavior of skin Nontoxic multinodular goiter [facility] Diagnosis Cellulitis of chest wall- Primary Cellulitis and abscess of trunk [facility] Diagnosis Low TSH level- Primary Nonspecific abnormal results of thyroid function study [facility] [place] [facility]* Diagnosis Encounter for long-term current use of medication Chronic pain of both knees Arthralgia of hands, bilateral documented [facility] this encounter [facility] [place] [facility]* Diagnosis Invasive ductal carcinoma of breast, right (HCC)- Primary [facility] Diagnosis Malignant neoplasm of 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, estrogen receptor positive (HCC) [facility] [place] [facility]* Diagnosis Nontoxic multinodular goiter- Primary [facility] Diagnosis Nontoxic multinodular goiter documented [facility] this [facility] [place] [facility]* Diagnosis Screening mammogram, encounter for [facility] Diagnosis Nontoxic multinodular goiter [facility]* Diagnosis Tobacco abuse Tobacco use disorder [facility] this [facility] [place] [facility]* Diagnosis NO SHOW- Primary [facility] [place] [facility]* Diagnosis Routine medical exam- Primary Routine general medical examination at a health care facility Constipation, unspecified constipation type [facility] Diagnosis Nontoxic multinodular goiter- Primary [facility]* Diagnosis Malignant neoplasm of 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, estrogen receptor positive (HCC) (HCC) Encounter for screening mammogram for malignant neoplasm of breast Other [facility] Diagnosis Malignant neoplasm of 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, estrogen receptor positive (HCC)- Primary Hiatal hernia with GERD Other specified intestinal obstruction, unspecified whether partial or complete (HCC) Nausea Nausea alone [facility] Examination of participant in clinical trial- Primary [facility] Diagnosis Epigastric pain- Primary Abdominal pain, epigastric [facility] Diagnosis Encounter for long-term current use of medication Chronic pain of both knees Arthralgia of hands, bilateral [facility] Diagnosis Ventral hernia without obstruction or gangrene- Primary Ventral hernia, unspecified, without mention of obstruction or gangrene Epigastric pain Abdominal pain, epigastric Ventral hernia without obstruction or gangrene Ventral hernia, unspecified, without mention of obstruction or gangrene [facility] Diagnosis Ventral hernia without obstruction or gangrene- Primary Ventral hernia, unspecified, without mention of obstruction or gangrene [facility] [place] [facility]* Diagnosis Malignant neoplasm of 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, estrogen receptor positive (HCC)- Primary Examination of participant in clinical trial [facility] [place] [facility]* Diagnosis Thyroid nodule- Primary Nontoxic uninodular goiter Smoker Tobacco use disorder Skin cancer screening Screening for malignant neoplasm of the skin Preoperative examination- Primary Preoperative examination, unspecified Invasive ductal carcinoma of breast, 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, estrogen receptor positive (HCC) History of COVID-19 Gastroesophageal reflux disease, unspecified whether esophagitis present Mood disorder (HCC) Unspecified episodic mood disorder Class 1 obesity with body mass index (BMI) of 31.0 to 31.9 in adult, unspecified obesity type, unspecified whether serious comorbidity present Malignant neoplasm of 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, estrogen receptor positive (HCC) [facility] [place] [facility] Diagnosis Thyroid nodule- Primary Nontoxic uninodular goiter Smoker Tobacco use disorder Skin cancer screening Screening for malignant neoplasm of the skin Preoperative examination- Primary Preoperative examination, unspecified Invasive ductal carcinoma of breast, 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, estrogen receptor positive (HCC) History of COVID-19 Gastroesophageal reflux disease, unspecified whether esophagitis present Mood disorder (HCC) Unspecified episodic mood disorder Class 1 obesity with body mass index (BMI) of 31.0 to 31.9 in adult, unspecified obesity type, unspecified whether serious comorbidity present Malignant neoplasm of 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, estrogen receptor positive (HCC)- Primary Examination of participant in clinical trial Encounter for screening mammogram for high-risk patient [facility] [place] [facility] Diagnosis Thyroid nodule- Primary Nontoxic uninodular goiter Smoker Tobacco use disorder Skin cancer screening Screening for malignant neoplasm of the skin Preoperative examination- Primary Preoperative examination, unspecified Invasive ductal carcinoma of breast, 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, estrogen receptor positive (HCC) History of COVID-19 Gastroesophageal reflux disease, unspecified whether esophagitis present Mood disorder (HCC) Unspecified episodic mood disorder Class 1 obesity with body mass index (BMI) of 31.0 to 31.9 in adult, unspecified obesity type, unspecified whether serious comorbidity present Encounter for long-term current use of medication Chronic pain of both knees Arthralgia of hands, bilateral [facility] [place] [facility]* Diagnosis Thyroid nodule- Primary Nontoxic uninodular goiter Smoker Tobacco use disorder Skin cancer screening Screening for malignant neoplasm of the skin Preoperative examination- Primary Preoperative examination, unspecified Invasive ductal carcinoma of breast, 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, estrogen receptor positive (HCC) History of COVID-19 Gastroesophageal reflux disease, unspecified whether esophagitis present Mood disorder (HCC) Unspecified episodic mood disorder Class 1 obesity with body mass index (BMI) of 31.0 to 31.9 in adult, unspecified obesity type, unspecified whether serious comorbidity present Malignant neoplasm of 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, estrogen receptor positive (HCC)- Primary [facility] Diagnosis Thyroid nodule- Primary Nontoxic uninodular goiter Smoker Tobacco use disorder Skin cancer screening Screening for malignant neoplasm of the skin Preoperative examination- Primary Preoperative examination, unspecified Invasive ductal carcinoma of breast, 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, estrogen receptor positive (HCC) History of COVID-19 Gastroesophageal reflux disease, unspecified whether esophagitis present Mood disorder (HCC) Unspecified episodic mood disorder Class 1 obesity with body mass index (BMI) of 31.0 to 31.9 in adult, unspecified obesity type, unspecified whether serious comorbidity present Abnormal mammogram Abnormal mammogram, unspecified Personal history of breast cancer Personal history of malignant neoplasm of breast [facility] [place] [facility]* Diagnosis Thyroid nodule- Primary Nontoxic uninodular goiter Smoker Tobacco use disorder Skin cancer screening Screening for malignant neoplasm of the skin Invasive ductal carcinoma of breast, 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, estrogen receptor positive (HCC) Preoperative examination- Primary Preoperative examination, unspecified Invasive ductal carcinoma of breast, 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, estrogen receptor positive (HCC) History of COVID-19 Gastroesophageal reflux disease, unspecified whether esophagitis present Mood disorder (HCC) Unspecified episodic mood disorder Class 1 obesity with body mass index (BMI) of 31.0 to 31.9 in adult, unspecified obesity type, unspecified whether serious comorbidity present documented in this encounter [facility]* Diagnosis Thyroid nodule- Primary Nontoxic uninodular goiter Smoker Tobacco use disorder Skin cancer screening Screening for malignant neoplasm of the skin Preoperative examination- Primary Preoperative examination, unspecified Invasive ductal carcinoma of breast, 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, estrogen receptor positive (HCC) History of COVID-19 Gastroesophageal reflux disease, unspecified whether esophagitis present Mood disorder (HCC) Unspecified episodic mood disorder Class 1 obesity with body mass index (BMI) of 31.0 to 31.9 in adult, unspecified obesity type, unspecified whether serious comorbidity present Invasive ductal carcinoma of breast, 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, estrogen receptor positive (HCC) documented in this encounter [facility]* Diagnosis Thyroid nodule- Primary Nontoxic uninodular goiter Smoker Tobacco use disorder Skin cancer screening Screening for malignant neoplasm of the skin Preoperative examination- Primary Preoperative examination, unspecified Invasive ductal carcinoma of breast, 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, estrogen receptor positive (HCC) History of COVID-19 Gastroesophageal reflux disease, unspecified whether esophagitis present Mood disorder (HCC) Unspecified episodic mood disorder Class 1 obesity with body mass index (BMI) of 31.0 to 31.9 in adult, unspecified obesity type, unspecified whether serious comorbidity present Routine medical exam- Primary Routine general medical examination at a health care facility Chronic pain of both knees Arthralgia of hands, bilateral Allergic rhinitis due to animal hair and dander Allergic rhinitis due to animal (cat) (dog) hair and dander Polyarthritis Unspecified polyarthropathy or polyarthritis, site unspecified Encounter for long-term current use of medication Screening for depression Encounter for screening examination for other mental health and behavioral disorders [facility] [place] [facility]* Diagnosis Thyroid nodule- Primary Nontoxic uninodular goiter Smoker Tobacco use disorder Skin cancer screening Screening for malignant neoplasm of the skin Preoperative examination- Primary Preoperative examination, unspecified Invasive ductal carcinoma of breast, 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, estrogen receptor positive (HCC) History of COVID-19 Gastroesophageal reflux disease, unspecified whether esophagitis present Mood disorder (HCC) Unspecified episodic mood disorder Class 1 obesity with body mass index (BMI) of 31.0 to 31.9 in adult, unspecified obesity type, unspecified whether serious comorbidity present Malignant neoplasm of 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, estrogen receptor positive (HCC) [facility] [place] [facility]* Diagnosis Thyroid nodule- Primary Nontoxic uninodular goiter Smoker Tobacco use disorder Skin cancer screening Screening for malignant neoplasm of the skin Preoperative examination- Primary Preoperative examination, unspecified Invasive ductal carcinoma of breast, 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, estrogen receptor positive (HCC) History of COVID-19 Gastroesophageal reflux disease, unspecified whether esophagitis present Mood disorder (HCC) Unspecified episodic mood disorder Class 1 obesity with body mass index (BMI) of 31.0 to 31.9 in adult, unspecified obesity type, unspecified whether serious comorbidity present Encounter for long-term current use of medication Chronic pain of both knees Arthralgia of hands, bilateral Polyarthritis Unspecified polyarthropathy or polyarthritis, site unspecified documented in this encounter [facility]* Diagnosis Thyroid nodule- Primary Nontoxic uninodular goiter Smoker Tobacco use disorder Skin cancer screening Screening for malignant neoplasm of the skin Preoperative examination- Primary Preoperative examination, unspecified Invasive ductal carcinoma of breast, 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, estrogen receptor positive (HCC) History of COVID-19 Gastroesophageal reflux disease, unspecified whether esophagitis present Mood disorder (HCC) Unspecified episodic mood disorder Class 1 obesity with body mass index (BMI) of 31.0 to 31.9 in adult, unspecified obesity type, unspecified whether serious comorbidity present Malignant neoplasm of 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, estrogen receptor positive (HCC) Examination of participant in clinical trial Encounter for screening mammogram for high-risk patient [facility] Diagnosis Thyroid nodule- Primary Nontoxic uninodular goiter Smoker Tobacco use disorder Skin cancer screening Screening for malignant neoplasm of the skin Preoperative examination- Primary Preoperative examination, unspecified Invasive ductal carcinoma of breast, 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, estrogen receptor positive (HCC) History of COVID-19 Gastroesophageal reflux disease, unspecified whether esophagitis present Mood disorder (HCC) Unspecified episodic mood disorder Class 1 obesity with body mass index (BMI) of 31.0 to 31.9 in adult, unspecified obesity type, unspecified whether serious comorbidity present Gastroesophageal reflux disease without esophagitis Esophageal reflux [facility] [place] [facility]* Diagnosis Thyroid nodule- Primary Nontoxic uninodular goiter Smoker Tobacco use disorder Skin cancer screening Screening for malignant neoplasm of the skin Preoperative examination- Primary Preoperative examination, unspecified Invasive ductal carcinoma of breast, 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, estrogen receptor positive (HCC) History of COVID-19 Gastroesophageal reflux disease, unspecified whether esophagitis present Mood disorder (HCC) Unspecified episodic mood disorder Class 1 obesity with body mass index (BMI) of 31.0 to 31.9 in adult, unspecified obesity type, unspecified whether serious comorbidity present Examination of participant in clinical trial- Primary Malignant neoplasm of 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, estrogen receptor positive (HCC) [facility] Diagnosis Thyroid nodule- Primary Nontoxic uninodular goiter Smoker Tobacco use disorder Skin cancer screening Screening for malignant neoplasm of the skin Preoperative examination- Primary Preoperative examination, unspecified Invasive ductal carcinoma of breast, 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, estrogen receptor positive (HCC) History of COVID-19 Gastroesophageal reflux disease, unspecified whether esophagitis present Mood disorder (HCC) Unspecified episodic mood disorder Class 1 obesity with body mass index (BMI) of 31.0 to 31.9 in adult, unspecified obesity type, unspecified whether serious comorbidity present Malignant neoplasm of 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, estrogen receptor positive (HCC)- Primary Examination of participant in clinical trial documented in this encounter [facility] for referral (narrative)* Diagnostic Procedure Only (Routine) - Pending Review Specialty Diagnoses / Procedures Referred By Contjacqueline t Referred To Contact [facility] Diagnoses Abnormal mammogram Procedures US BREAST LTD RT US BREAST UNI REAL TIME WITH IMAGE LIMITED Akira Pierre MD [address] [place] [address] [facility] [address] [place] [address] Referral ID Status Reason Start Date Expiration Date Visits Requested Visits Authorized [id number] Pending Review Auto-Generat ed Referral 06/07/2021 07/07/2022 1 1 * Diagnostic Procedure Only (Routine) - Pending Review Specialty Diagnoses / Procedures Referred By Contac t Referred To Contact [facility] Diagnoses Abnormal mammogram Procedures HARSH DIAGNOSTIC RT DIAGNOSTIC MAMMOGRAPHY COMPUTER-AIDED DETCJ UNI Akira Pierre MD [address] [place] [id number] [facility] [address] [place] [address] Referral ID Status Reason Start Date Expiration Date Visits Requested Visits Authorized [id number] Pending Review Auto-Generat ed Referral 06/07/2021 07/07/2022 1 1 [facility] for referral (narrative)* Diagnostic Procedure Only (Routine) - Pending Review Specialty Diagnoses / Procedures Referred By Contac t Referred To Contact [facility] Diagnoses Abnormal mammogram Procedures US BIOPSY BREAST RT BX BREAST W/DEVICE 1ST LESION ULTRASOUND GUID Quinton Myers MD [address] [place] [address] [facility] [address] [place] [address] Referral ID Status Reason Start Date Expiration Date Visits Requested Visits Authorized [id number] Pending Review Auto-Generat ed Referral 07/26/2021 08/25/2022 1 1 [facility] for referral (narrative)* Diagnostic Procedure Only (Routine) - Pending Review Specialty Diagnoses / Procedures Referred By Contac t Referred To Contact [facility] Diagnoses Invasive ductal carcinoma of breast, 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, estrogen receptor positive (HCC) Procedures HARSH NDL LOC W HARSH GD RT PERQ DEVICE PLACEMENT BREAST LOC 1ST LES W/GDNCE Dana Flores PA-C [address] [place] [address] [facility] [address] [place] [address] Referral ID Status Reason Start Date Expiration Date Visits Requested Visits Authorized [id number] Pending Review Auto-Generat ed Referral 09/26/2021 10/26/2022 1 1 [facility] for referral (narrative)* Diagnostic Procedure Only (Routine) - Authorized Specialty Diagnoses / Procedures Referred By Peterac t Referred To Contact [facility] Diagnoses Abnormal mammogram Personal history of breast cancer Procedures US BREAST LTD RT US BREAST UNI REAL TIME WITH IMAGE LIMITED Dana Flores PA-C [address] [place] [address] [facility] [address] [place] [address] Referral ID Status Reason Start Date Expiration Date Visits Requested Visits Authorized [id number] Authorized Auto-Generat ed Referral 04/23/2022 05/23/2023 1 1 * Diagnostic Procedure Only (Routine) - Authorized Specialty Diagnoses / Procedures Referred By Contac t Referred To Contact [facility] Diagnoses Abnormal mammogram Personal history of breast cancer Procedures HARSH DIAGNOSTIC RT DIAGNOSTIC MAMMOGRAPHY COMPUTER-AIDED DETCJ UNI Dana Flores PA-C [address] [place] [address] [facility] [address] [place] [address] Referral ID Status Reason Start Date Expiration Date Visits Requested Visits Authorized [id number] Authorized Auto-Generat ed Referral 04/23/2022 05/23/2023 1 1 [facility] for referral (narrative)* Diagnostic Procedure Only (Routine) - Authorized Specialty Diagnoses / Procedures Referred By Contac t Referred To Contact [facility] Diagnoses Nontoxic multinodular goiter Procedures US THYROID/PARATHYROID US SOFT TISSUE HEAD & NECK REAL TIME IMGE Celeste Peterson APRN.CNS [address] [place] [address] [facility] Referral ID Status Reason Start Date Expiration Date Visits Requested Visits Authorized [id number] Authorized Auto-Generat ed Referral 06/20/2022 07/20/2023 1 1 T [facility] for referral (narrative)* Diagnostic Procedure Only (Routine) - Pending Review Specialty Diagnoses / Procedures [facility] Referred To Contact [facility] Diagnoses Low TSH level Thyroid nodule Procedures NM THY UPTAKE AND SCAN THYROID UPTAKE W/BLOOD FLOW SNGLE/MULT Patrice Emerson MD [address] [place] [address] Molecular [facility] Functional Imaging [address] [place] [address] Referral ID Status Reason Start Date Expiration Date Visits Requested Visits Authorized [id number] Pending Review Auto-Generat ed Referral 07/11/2022 08/10/2023 1 1 [facility] for referral (narrative)* Diagnostic Procedure Only (Routine) - Closed Specialty Diagnoses / Procedures [facility] Referred To Contact [facility] FUNCTION[facility]AGING Diagnoses Low TSH level Thyroid nodule Procedures NM THY UPTAKE AND SCAN THYROID UPTAKE W/BLOOD FLOW SNGLE/MULT LETTY Patrice Bonilla MD [address] [place] [address] Molecular & Functional Imaging [address] [place], [place] [id number] Referral ID Status Reason Start Date Expiration Date V isits Requested Visits Authorized [id number] Closed Auto-Generate d Referral 07/11/2022 08/10/2023 1 1 [facility] for referral (narrative)* Diagnostic Procedure Only (Routine) - Pending Review Specialty Diagnoses / Procedures Referred By Jen t Referred To Contact [facility] IMAGING Diagnoses Nontoxic multinodular goiter Procedures US THYROID/PARATHYROID US SOFT TISSUE HEAD & NECK REAL TIME IMGE Patrice Roy MD [address] [place] [address] [place] [address] Referral ID Status Reason Start Date Expiration Date Visits Requested Visits Authorized [id number] Pending Review Auto-Generat ed Referral 12/15/2022 01/14/2024 1 1 [facility] for referral (narrative)* Diagnostic Procedure Only (Routine) - Closed Specialty Diagnoses / Procedures Referred By Jen t Referred To Contact [facility] IMAGING Diagnoses Nontoxic multinodular goiter Procedures US THYROID/PARATHYROID US SOFT TISSUE HEAD & NECK REAL TIME IMGE Celeste Peterson APRN.CNS [address] [place] [address] [place] [address] Referral ID Status Reason Start Date Expiration Date V isits Requested Visits Authorized [id number] Closed Auto-Generate d Referral 06/20/2022 07/20/2023 1 1 [facility] for referral (narrative)* Diagnostic Procedure Only (Routine) - Closed Specialty Diagnoses / Procedures Referred By Jen t Referred To Contact [facility] Diagnoses Screening mammogram, encounter for Procedures HARHS SCREENING W YANE SCREENING DIGITAL BREAST TOMOSYNTHESIS BI SCREENING MAMMOGRAPHY BI 2-[place] [address] [place] [address] [facility] [address] [place] [address] Referral ID Status Reason Start Date Expiration Date V isits Requested Visits Authorized [id number] Closed Auto-Generate d Referral 09/26/2021 10/26/2022 1 1 [facility] for referral (narrative)* Diagnostic Procedure Only (Routine) - Closed Specialty Diagnoses / Procedures Referred By Peterac t Referred To Contact [facility] IM[facility] Diagnoses Nontoxic multinodular goiter Procedures US THYROID/PARATHYROID US SOFT TISSUE HEAD & NECK REAL TIME IMGE Patrice Roy MD [address] [place] [address] [place] [address] Referral ID Status Reason Start Date Expiration Date V isits Requested Visits Authorized [id number] Closed Auto-Generate d Referral 12/15/2022 01/14/2024 1 1 [facility] for referral (narrative)* Diagnostic Procedure Only (Routine) - Closed Specialty Diagnoses / Procedures Referred By Contac t Referred To Contact [facility] Diagnoses Malignant neoplasm of 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, estrogen receptor positive (HCC) (HCC) Encounter for screening mammogram for malignant neoplasm of breast Procedures HARSH SCREENING W YANE SCREENING DIGITAL BREAST TOMOSYNTHESIS BI SCREENING MAMMOGRAPHY BI 2-VIEW BREAST INC CAD Nahun Zavaleta DO [address] [place] [address] [facility] [address] [place] [address] Referral ID Status Reason Start Date Expiration Date V isits Requested Visits Authorized [id number] Closed Auto-Generate d Referral 11/21/2022 12/21/2023 1 1 [facility] for referral (narrative)* Diagnostic Procedure Only (Routine) - Authorized Specialty Diagnoses / Procedures Referred By Contac t Referred To Contact [facility] Diagnoses Malignant neoplasm of 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, estrogen receptor positive (HCC) Examination of participant in clinical trial Encounter for screening mammogram for high-risk patient Procedures HARSH SCREENING W YANE SCREENING DIGITAL BREAST TOMOSYNTHESIS BI SCREENING MAMMOGRAPHY BI 2-VIEW BREAST INC CAD Stephanie Crawford, [employer]IVATE TUT[employer].B[employer] ANALY[employer] [address] [place] [address] [facility] [address] [place] [address] Referral ID Status Reason Start Date Expiration Date Visits Requested Visits Authorized [id number] Authorized Auto-Generat ed Referral 11/24/2023 12/23/2024 1 1 [facility] for referral (narrative)* Diagnostic Procedure Only (Routine) - Closed Specialty Diagnoses / Procedures Referred By Contac t Referred To Contact [facility] Diagnoses Abnormal mammogram Personal history of breast cancer Procedures US BREAST LTD RT US BREAST UNI REAL TIME WITH IMAGE LIMITED Dana Flores PA-C [address] [place] [address] [facility] [address] [place] [address] Referral ID Status Reason Start Date Expiration Date V isits Requested Visits Authorized [id number] Closed Auto-Generate d Referral 04/23/2022 05/23/2023 1 1 [facility] for referral (narrative)No reason for referral information [facility] Work Phone: Reason for visit Narrative* Diagnostic Procedure Only (Routine) - Closed Specialty Diagnoses / Procedures Referred By Contjacqueline t Referred To Contact [facility] Diagnoses Abnormal mammogram Procedures US BREAST LTD RT US BREAST UNI REAL TIME WITH IMAGE LIMITED Akira Pierre MD [address] [place] [address] [facility] [address] [place] [address] Referral ID Status Reason Start Date Expiration Date V isits Requested Visits Authorized [id number] Closed Auto-Generate d Referral 06/07/2021 07/07/2022 1 1 [facility] for visit Narrative* Auth/Cert Specialty Diagnoses / Procedures Referred By Contjacqueline t Referred To Contact [facility] Diagnoses Invasive ductal carcinoma of breast, 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, estrogen receptor positive (HCC) Procedures MASTECTOMY, PARTIAL PERQ DEVICE PLACEMENT BREAST LOC 1ST LES W/GDNCE INTRAOP SENTINEL LYMPH NODE ID W/DYE INJECTION BX/EXC LYMPH NODE OPEN DEEP AXILLARY NODE AXILLARY LYMPHADENECTOMY COMPLETE MASTECTOMY PARTIAL PLACEMENT OF BREAST LOCALIZATION DEVICE(S) PERCUTANEOUS; FIRST LESION, MAMMOGRAPHIC GUIDANCE INTRAOPERATIVE ID OF SENTINEL LYMPH NODE(S) INCL'D INJECTION OF NON-RAD DYE WHEN PERFORMED BIOPSY NODE SENTINEL AXILLARY LYMPHADENECTOMY AXILLARY COMPLETE [facility] [address] [place] [address] Referral ID Status Reason Start Date Expiration Date Visits Re quested Visits Authorized [id number] 1 1 [facility] for visit Narrative* Diagnostic Procedure Only (Routine) - Closed Specialty Diagnoses / Procedures Referred By Jen holder Referred To Contact [facility] Diagnoses Low TSH level Thyroid nodule Procedures NM THY UPTAKE AND SCAN THYROID UPTAKE W/BLOOD FLOW SNGLE/MULT LETTY FAWAD Patrice Palencia MD [address] [place] [address] Molecular & Functional Imaging [address] [place] [address] Referral ID Status Reason Start Date Expiration Date V isits Requested Visits Authorized [id number] Closed Auto-Generate d Referral 07/11/2022 08/10/2023 1 1 [facility] for visit Narrative* Diagnostic Procedure Only (Routine) - Closed Specialty Diagnoses / Procedures Referred By Jen holder Referred To Contact [facility] Diagnoses Screening mammogram, encounter for Procedures HARSH SCREENING W YANE SCREENING DIGITAL BREAST TOMOSYNTHESIS BI SCREENING MAMMOGRAPHY BI 2-[place] [address] [place] [address] [facility] [address] [place] [address] Referral ID Status Reason Start Date Expiration Date V isits Requested Visits Authorized [id number] Closed Auto-Generate d Referral 09/26/2021 10/26/2022 1 1 [facility] for visit Narrative* Diagnostic Procedure Only (Routine) - Closed Specialty Diagnoses / Procedures Referred By Jen holder Referred To Contact [facility] Diagnoses Malignant neoplasm of 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, estrogen receptor positive (HCC) (HCC) Encounter for screening mammogram for malignant neoplasm of breast Procedures HARSH SCREENING W YANE SCREENING DIGITAL BREAST TOMOSYNTHESIS BI SCREENING MAMMOGRAPHY BI 2-VIEW BREAST INC CAD Nahun Zavaleta, DO [address] [place] [address] [facility] [address] [place] [address] Referral ID Status Reason Start Date Expiration Date V isits Requested Visits Authorized [id number] Closed Auto-Generate d Referral 11/21/2022 12/21/2023 1 1 [facility] for visit Narrative* Diagnostic Procedure Only (Routine) - Closed Specialty Diagnoses / Procedures Referred By Jen holder Referred To Contact [facility] Diagnoses Invasive ductal carcinoma of breast, 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, estrogen receptor positive (HCC) Procedures HARSH NDL LOC W HARSH GD RT PERQ DEVICE PLACEMENT BREAST LOC 1ST LES W/GDNCE Dana Flores, PAJoanna [address] [place] [address] [facility] [address] [place] [address] Referral ID Status Reason Start Date Expiration Date V isits Requested Visits Authorized [id number] Closed Auto-Generate d Referral 09/26/2021 10/26/2022 1 1 [facility] for visit Narrative* Diagnostic Procedure Only (Routine) - Closed Specialty Diagnoses / Procedures Referred By Jen holder Referred To Contact [facility] Diagnoses Malignant neoplasm of 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, estrogen receptor positive (HCC) Examination of participant in clinical trial Encounter for screening mammogram for high-risk patient Procedures HARSH SCREENING W YANE SCREENING DIGITAL BREAST TOMOSYNTHESIS BI SCREENING MAMMOGRAPHY BI 2-VIEW BREAST INC CAD Stephanie Crawford, RAMAKRISHNA.BANK ANALYST [address] [place] [address] Phone: tel: fax: [facility] [address] [place] [address] Referral ID Status Reason Start Date Expiration Date V isits Requested Visits Authorized [id number] Closed Auto-Generate d Referral 11/24/2023 12/23/2024 1 1 [facility] Summary Purpose Family History No Family History Records Found Relationship Condition Age at Onset Recorded Date/T edilia mother Asthma Unknown Arthritis Unknown father Malignant neoplasm Unknown grandmother Arthritis Unknown Malignant neoplasm Unknown Malignant neoplasm of breast Unknown grandfather Cardiac disease Unknown Advance Directives No Advanced Directives Records FoundDocuments on File Type Date Recorded Patient Bacon Stringer Expl anation Advance Directive(s) 01/31/2020 6:19 AM Advance Directive(s) 01/19/2020 2:36 PM Advance Directive(s) 11/28/2016 10:17 AM Documents on File Type Date Recorded Patient Bacon Stringer Expl anation Advance Directive(s) 01/31/2020 6:19 AM Advance Directive(s) 01/19/2020 2:36 PM Advance Directive(s) 11/28/2016 10:17 AM Documents on File Type Date Recorded Patient Bacon Stringer Expl anation Advance Directive(s) 09/30/2021 8:04 AM Advance Directive(s) 01/31/2020 6:19 AM Advance Directive(s) 01/19/2020 2:36 PM Advance Directive(s) 11/28/2016 10:17 AM Documents on File Type Date Recorded Patient Bacon Stringer Expl anation Advance Directive(s) 10/07/2021 6:44 AM Advance Directive(s) 10/07/2021 6:49 AM Advance Directive(s) 10/07/2021 6:47 AM Advance Directive(s) 09/30/2021 8:04 AM Advance Directive(s) 01/31/2020 6:19 AM Advance Directive(s) 01/19/2020 2:36 PM Advance Directive(s) 11/28/2016 10:17 AM Documents on File Type Date Recorded Patient Bacon Stringer Expl anation Advance Directive(s) 10/07/2021 6:47 AM Documents on File Type Date Recorded Patient Bacon Stringer Expl anation Advance Directive(s) 10/07/2021 6:47 AM Advance Directive Response Recorded Date/ Time Living Will No May 06, 2 023 12:17pm Power of Reference Assistant No May 06, 2022 12:17pm Advance Directive Response Recorded Date/ Time Living Will No May 06, 2 023 1:17pm Power of Reference Assistant No May 06, 2022 1:17pm Reason for Referral Specialty Diagnoses / Procedures Referred By Peterac t Referred To Contact General Surgery Diagnoses Cellulitis of female breast Procedures CONSULT TO GENERAL SURGERY OFFICE/OUTPATIENT [facility] 60-74 MINUTES Celeste Salcedo APRN.TRACK PRODUCTION ENGINEER [address] [place] [address] Referral ID Status Reason Start Date Expiration Date Visits Requested Visits Authorized [id number] Pending Review PCP Requested Referral 06/24/2021 06/24/2022 1 1 Specialty Diagnoses / Procedures Referred By Jen t Referred To Contact General Surgery Diagnoses Malignant neoplasm of upper-outer quadrant of right breast in female, estrogen receptor positive (HCC) Procedures CONSULT TO GENERAL SURGERY Quinton Myers MD [address] [place] [address] Roman/Wei Bravo [address] [place] [id number] Referral ID Status Reason Start Date Expiration Date Visits Requested Visits Authorized [id number] Ref Not Required PCP Requested Referral 08/27/2021 08/27/2022 1 1 Specialty Diagnoses / Procedures Referred By Jen holder Referred To Contact Diagnoses Screening mammogram, encounter for Family history of breast cancer Malignant neoplasm of 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, estrogen receptor positive (HCC) Procedures CONSULT TO MEDICAL GENETICS - CANCER MEDICAL GENETICS COUNSELING EACH 30 [place] [address] [place] [address] [facility] [place] [address] [place] [address] Referral ID Status Reason Start Date Expiration Date Visits Requested Visits Authorized [id number] Authorized PCP Requested Referral Auto-Generate d Referral 09/26/2021 12/25/2021 1 1 Specialty Diagnoses / Procedures Referred By Jen holder Referred To Contact [facility] Diagnoses Screening mammogram, encounter for Procedures HARSH SCREENING W YANE SCREENING DIGITAL BREAST TOMOSYNTHESIS BI SCREENING MAMMOGRAPHY BI 2-[place] [address] [place] [address] [facility] [address] [place] [phone] Referral ID Status Reason Start Date Expiration Date Visits Requested Visits Authorized [id number] Authorized Auto-Generat ed Referral 09/26/2021 10/26/2022 1 1 Specialty Diagnoses / Procedures Referred By Contac t Referred To Contact [facility] Diagnoses Malignant neoplasm of 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, estrogen receptor positive (HCC) Procedures CONSULT TO BREAST REHAB PROGRAM THERAPEUTIC EXERCISES RE, EA 15 MIN. THERAPEUT ACTVITY DIRECT PT CONTACT EACH 15 MIN Dana Flores PA-C [address] [place] [address] [facility] [place] [address] [place] [address] Referral ID Status Reason Start Date Expiration Date Visits Requested Visits Authorized [id number] Authorized PCP Requested Referral Auto-Generate d Referral 03/09/2021 03/08/2022 20 20 Specialty Diagnoses / Procedures Referred By Contac t Referred To Contact Endocrinology Diagnoses Low TSH level Procedures CONSULT TO ENDOCRINOLOGY OFFICE/OUTPATIENT [facility] 60-74 MINUTES Celeste Salcedo, PRIVATE TUTOR.[address] [address] Referral ID Status Reason Start Date Expiration Date Visits Requested Visits Authorized [id number] Pending Review PCP Requested Referral 06/23/2022 06/23/2023 1 1 Specialty Diagnoses / Procedures Referred By Contac t Referred To Contact Diagnoses Low TSH level Thyroid nodule Procedures CONSULT TO ENDOCRINE SURGERY OFFICE/OUTPATIENT [facility] 60-74 MINUTES Celeste Salcedo, PRIVATE TUTOR.[address] [address] Referral ID Status Reason Start Date Expiration Date Visits Requested Visits Authorized [id number] Pending Review PCP Requested Referral 07/01/2022 07/01/2023 1 1 Specialty Diagnoses / Procedures Referred By Contac t Referred To Contact CT IMAGING Diagnoses Hiatal hernia with GERD Other specified intestinal obstruction, unspecified whether partial or complete (HCC) Nausea Malignant neoplasm of 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, estrogen receptor positive (HCC) Procedures CT ABD/PEL W IVCON CT ABD & PELVIS W/CONTRAST [place] [address] [place] [address] Referral ID Status Reason Start Date Expiration Date Visits Requested Visits Authorized [id number] Pending Review Auto-Generat ed Referral 05/22/2023 06/20/2024 1 1 Specialty Diagnoses / Procedures Referred By Contac t Referred To Contact Gastroenterology Diagnoses Hiatal hernia with GERD Nausea Malignant neoplasm of 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, estrogen receptor positive (HCC) Procedures CONSULT TO GASTROENTEROLOGY OFFICE/OUTPATIENT [facility] 60 MINUTES Aleida Rodriguez [address] [place] [address] Referral ID Status Reason Start Date Expiration Date Visits Requested Visits Authorized [id number] Authorized PCP Requested Referral 05/22/2023 05/21/2024 1 1 Specialty Diagnoses / Procedures Referred By Contac t Referred To Contact General Surgery Diagnoses Epigastric pain Procedures CONSULT TO GENERAL SURGERY OFFICE/OUTPATIENT [facility] 60 MINUTES Nahun Zavaleta DO [address] [place] [address] Referral ID Status Reason Start Date Expiration Date Visits Requested Visits Authorized [id number] Authorized PCP Requested Referral 05/25/2023 05/24/2024 1 1 Medications Administered Section Inactive Administered Medications - up to 3 most recent administrations Medication Order MAR Action Action Date Dose Rate Site acetaminophen 1,000 mg tab(s) (TYLENOL) 1,000 mg, ORAL, ONCE, 1 dose, On Thu10/07/21 at 0700, If ordered PRN for pain, patient/guardian may elect to receive this medication for higher pain levels INSTEAD of the opioid, if preferred: Yes Given 10/07/2021 8:22 AM EDT 1,000 mg fentaNYL 50 mcg/mL 25 mcg injection (SUBLIMAZE) 25 mcg, INTRAVENOUS, NEEDED, Starting on Thu10/07/21 at 1039, Until Thu10/08/21 at 0303, FIRST LINE THERAPY for moderate or severe pain, FIRST LINE THERAPY Every 10 minutes, To a Maximum Total Dose of 100 mcg Hold for respiratory rate less than 10 USE FOR MODERATE PAIN ONLY IF PATIENT IS UNABLE TO TOLERATE ORAL THERAPY Given 10/07/2021 11:05 AM EDT 25 mcg lactated ringers iv infusion 5-30 mL/hr, INTRAVENOUS, CONTINUOUS, Starting on Thu10/07/21 at 0700, Until Thu10/07/21 at 1017, Preprocedure Restarted 10/07/2021 10:04 AM EDT Continued by Anesthesia 10/07/2021 8:37 AM EDT 30 mL/hr New Bag/Syringe/Bottle 10/07/2021 8:22 AM EDT 30 mL/hr 3 0 mL/hr lactated ringers iv infusion 5-30 mL/hr, INTRAVENOUS, CONTINUOUS, Starting on Thu10/07/21 at 1100, Until Thu10/08/21 at 0303 Rate Verify 10/07/2021 10:20 AM EDT 30 mL/hr 30 mL/hr metoclopramide HCl 10 mg injection (REGLAN) 10 mg, INTRAVENOUS, NEEDED, 1 dose, Starting on Thu10/07/21 at 1039, Until Thu10/08/21 at 0303, Nausea/Vomiting - Second Line - Parenteral ondansetron (PF) 4 mg injection (ZOFRAN) 4 mg, INTRAVENOUS, NEEDED, 1 dose, Starting on Thu10/07/21 at 1039, Until Thu10/08/21 at 0303, Nausea/Vomiting - First Line - Parenteral, Give IV push over 2 minutes oxyCODONE IR 5 mg tab(s) (ROXICODONE) 5 mg, ORAL, NEEDED, 1 dose, Starting on Thu10/07/21 at 1039, Until Thu10/07/21 at 1143, Moderate Pain (4-6) - Enteral Given 10/07/2021 11:43 AM EDT 5 mg scopolamine - REMOVE PATCH EVERY 72 HOURS, THIS IS USED ONLY TO DOCUMENT PATCH REMOVAL. Use Remvd Patch action. scopolamine - VERIFY patch EVERY 8 HOURS, THIS IS USED ONLY TO DOCUMENT THAT THE PATCH IS VERIFIED ON OR OFF PER ORDER. Use Patch On or Patch Off action. scopolamine 1 mg over 3 days 1 Patch (TRANSDERM-SCOP) 1 Patch, TRANSDERMAL, EVERY 72 HOURS, First dose on Thu10/07/21 at 0700, Until Discontinued, Apply patch behind ear. Each time a new patch is needed it should be placed behind the alternate ear from the previous patch. Remove old patch. Each 1.5 mg patch delivers 1 mg of scopolamine over 3 days. Given 10/07/2021 8:22 AM EDT 1 Patch Ear, Left Inactive Administered Medications - up to 3 most recent administrations Medication Order MAR Action Action Date Dose Rate Site zoledronic un-[id number]-[id number] 4 mg iv piggyback 100 mL (ZOMETA) 4 mg, INTRAVENOUS, Administer over 15 Minutes, ONCE, 1 dose, On 05/05/22 at 1530, Hazardous Potential Reproductive Risk Drug: Use appropriate PPE. New Bag/Syringe/Bottle 05/05/2022 3:28 PM EST 4 mg Chief Complaint and Reason for Visit Chief Complaint CHEST PAIN Chief Complaint HERNIA WITH GERD/INT ESTINAL OBSTRUCTION Chief Complaint Admit Date NEW PATIENT August 10, 2024 4:47p m Chief Complaint Admit Date NEW PATIENT August 10, 2024 4:47p m BLOATING August 12, 2024 10:45 am Reason for Visit Admit Date Bloating August 10, 2024 4:47p m Epigastric fullness August 10, 2024 4:47p m Chief Complaint Admit Date NEW PATIENT August 10, 2024 4:47p m BLOATING August 12, 2024 10:45 am LIVER LESION August 25, 2024 1:05 pm Additional Source Comments INFORMATION SOURCE (unrecogn ized section and content) DATE CREATED AUTHOR 06/05/2020 [facility] DATE CREATED AUTHOR AUTHOR'S ORGANIZ ATION 08/29/2021 [facility] DATE CREATED AUTHOR AUTHOR'S ORGANIZ ATION 09/04/2022 [facility] DATE CREATED AUTHOR AUTHOR'S ORGANIZ ATION 06/17/2023 [facility] DATE CREATED AUTHOR AUTHOR'S ORGANIZ ATION 05/24/2024 [facility] DATE CREATED AUTHOR AUTHOR'S ORGANIZ ATION 09/29/2024 [facility] Source Comments (unrecognize d section and content) In the event this informatio n is protected by the Federal Confidentiality of Alcohol and Drug Abuse Patient Records regulations: The Federal rules restrict any use of the information to criminally investigate or prosecute any alcohol or drug abuse patient.[facility] the event this information is protected by the Federal Confidentiality of Alcohol and Drug Abuse Patient Records regulations: The Federal rules restrict any use of the information to criminally investigate or prosecute any alcohol or drug abuse patient.[facility] the event this information is protected by the Federal Confidentiality of Alcohol and Drug Abuse Patient Records regulations: The Federal rules restrict any use of the information to criminally investigate or prosecute any alcohol or drug abuse patient.[facility] the event this information is protected by the Federal Confidentiality of Alcohol and Drug Abuse Patient Records regulations: The Federal rules restrict any use of the information to criminally investigate or prosecute any alcohol or drug abuse patient.[facility] the event this information is protected by the Federal Confidentiality of Alcohol and Drug Abuse Patient Records regulations: The Federal rules restrict any use of the information to criminally investigate or prosecute any alcohol or drug abuse patient.[facility] the event this information is protected by the Federal Confidentiality of Alcohol and Drug Abuse Patient Records regulations: The Federal rules restrict any use of the information to criminally investigate or prosecute any alcohol or drug abuse patient.[facility] the event this information is protected by the Federal Confidentiality of Alcohol and Drug Abuse Patient Records regulations: The Federal rules restrict any use of the information to criminally investigate or prosecute any alcohol or drug abuse patient.[facility] the event this information is protected by the Federal Confidentiality of Alcohol and Drug Abuse Patient Records regulations: The Federal rules restrict any use of the information to criminally investigate or prosecute any alcohol or drug abuse patient.[facility] the event this information is protected by the Federal Confidentiality of Alcohol and Drug Abuse Patient Records regulations: The Federal rules restrict any use of the information to criminally investigate or prosecute any alcohol or drug abuse patient.[facility] the event this information is protected by the Federal Confidentiality of Alcohol and Drug Abuse Patient Records regulations: The Federal rules restrict any use of the information to criminally investigate or prosecute any alcohol or drug abuse patient.[facility] the event this information is protected by the Federal Confidentiality of Alcohol and Drug Abuse Patient Records regulations: The Federal rules restrict any use of the information to criminally investigate or prosecute any alcohol or drug abuse patient.[facility] the event this information is protected by the Federal Confidentiality of Alcohol and Drug Abuse Patient Records regulations: The Federal rules restrict any use of the information to criminally investigate or prosecute any alcohol or drug abuse patient.[facility] the event this information is protected by the Federal Confidentiality of Alcohol and Drug Abuse Patient Records regulations: The Federal rules restrict any use of the information to criminally investigate or prosecute any alcohol or drug abuse patient.[facility] the event this information is protected by the Federal Confidentiality of Alcohol and Drug Abuse Patient Records regulations: The Federal rules restrict any use of the information to criminally investigate or prosecute any alcohol or drug abuse patient.[facility] the event this information is protected by the Federal Confidentiality of Alcohol and Drug Abuse Patient Records regulations: The Federal rules restrict any use of the information to criminally investigate or prosecute any alcohol or drug abuse patient.[facility] the event this information is protected by the Federal Confidentiality of Alcohol and Drug Abuse Patient Records regulations: The Federal rules restrict any use of the information to criminally investigate or prosecute any alcohol or drug abuse patient.[facility] the event this information is protected by the Federal Confidentiality of Alcohol and Drug Abuse Patient Records regulations: The Federal rules restrict any use of the information to criminally investigate or prosecute any alcohol or drug abuse patient.[facility] the event this information is protected by the Federal Confidentiality of Alcohol and Drug Abuse Patient Records regulations: The Federal rules restrict any use of the information to criminally investigate or prosecute any alcohol or drug abuse patient.[facility] the event this information is protected by the Federal Confidentiality of Alcohol and Drug Abuse Patient Records regulations: The Federal rules restrict any use of the information to criminally investigate or prosecute any alcohol or drug abuse patient.[facility] the event this information is protected by the Federal Confidentiality of Alcohol and Drug Abuse Patient Records regulations: The Federal rules restrict any use of the information to criminally investigate or prosecute any alcohol or drug abuse patient.[facility] the event this information is protected by the Federal Confidentiality of Alcohol and Drug Abuse Patient Records regulations: The Federal rules restrict any use of the information to criminally investigate or prosecute any alcohol or drug abuse patient.[facility] the event this information is protected by the Federal Confidentiality of Alcohol and Drug Abuse Patient Records regulations: The Federal rules restrict any use of the information to criminally investigate or prosecute any alcohol or drug abuse patient.[facility] the event this information is protected by the Federal Confidentiality of Alcohol and Drug Abuse Patient Records regulations: The Federal rules restrict any use of the information to criminally investigate or prosecute any alcohol or drug abuse patient.[facility] the event this information is protected by the Federal Confidentiality of Alcohol and Drug Abuse Patient Records regulations: The Federal rules restrict any use of the information to criminally investigate or prosecute any alcohol or drug abuse patient.[facility] the event this information is protected by the Federal Confidentiality of Alcohol and Drug Abuse Patient Records regulations: The Federal rules restrict any use of the information to criminally investigate or prosecute any alcohol or drug abuse patient.[facility] the event this information is protected by the Federal Confidentiality of Alcohol and Drug Abuse Patient Records regulations: The Federal rules restrict any use of the information to criminally investigate or prosecute any alcohol or drug abuse patient.[facility] the event this information is protected by the Federal Confidentiality of Alcohol and Drug Abuse Patient Records regulations: The Federal rules restrict any use of the information to criminally investigate or prosecute any alcohol or drug abuse patient.[facility] HospitalIn the event this information is protected by the Federal Confidentiality of Alcohol and Drug Abuse Patient Records regulations: The Federal rules restrict any use of the information to criminally investigate or prosecute any alcohol or drug abuse patient.[facility] the event this information is protected by the Federal Confidentiality of Alcohol and Drug Abuse Patient Records regulations: The Federal rules restrict any use of the information to criminally investigate or prosecute any alcohol or drug abuse patient.[facility]In the event this information is protected by the Federal Confidentiality of Alcohol and Drug Abuse Patient Records regulations: The Federal rules restrict any use of the information to criminally investigate or prosecute any alcohol or drug abuse patient.[facility]In the event this information is protected by the Federal Confidentiality of Alcohol and Drug Abuse Patient Records regulations: The Federal rules restrict any use of the information to criminally investigate or prosecute any alcohol or drug abuse patient.[facility]In the event this information is protected by the Federal Confidentiality of Alcohol and Drug Abuse Patient Records regulations: The Federal rules restrict any use of the information to criminally investigate or prosecute any alcohol or drug abuse patient.[facility]In the event this information is protected by the Federal Confidentiality of Alcohol and Drug Abuse Patient Records regulations: The Federal rules restrict any use of the information to criminally investigate or prosecute any alcohol or drug abuse patient.[facility]In the event this information is protected by the Federal Confidentiality of Alcohol and Drug Abuse Patient Records regulations: The Federal rules restrict any use of the information to criminally investigate or prosecute any alcohol or drug abuse patient.[facility]In the event this information is protected by the Federal Confidentiality of Alcohol and Drug Abuse Patient Records regulations: The Federal rules restrict any use of the information to criminally investigate or prosecute any alcohol or drug abuse patient.[facility]In the event this information is protected by the Federal Confidentiality of Alcohol and Drug Abuse Patient Records regulations: The Federal rules restrict any use of the information to criminally investigate or prosecute any alcohol or drug abuse patient.[facility]In the event this information is protected by the Federal Confidentiality of Alcohol and Drug Abuse Patient Records regulations: The Federal rules restrict any use of the information to criminally investigate or prosecute any alcohol or drug abuse patient.[facility]In the event this information is protected by the Federal Confidentiality of Alcohol and Drug Abuse Patient Records regulations: The Federal rules restrict any use of the information to criminally investigate or prosecute any alcohol or drug abuse patient.[facility]In the event this information is protected by the Federal Confidentiality of Alcohol and Drug Abuse Patient Records regulations: The Federal rules restrict any use of the information to criminally investigate or prosecute any alcohol or drug abuse patient.[facility]In the event this information is protected by the Federal Confidentiality of Alcohol and Drug Abuse Patient Records regulations: The Federal rules restrict any use of the information to criminally investigate or prosecute any alcohol or drug abuse patient.[facility]In the event this information is protected by the Federal Confidentiality of Alcohol and Drug Abuse Patient Records regulations: The Federal rules restrict any use of the information to criminally investigate or prosecute any alcohol or drug abuse patient.[facility]In the event this information is protected by the Federal Confidentiality of Alcohol and Drug Abuse Patient Records regulations: The Federal rules restrict any use of the information to criminally investigate or prosecute any alcohol or drug abuse patient.[facility]In the event this information is protected by the Federal Confidentiality of Alcohol and Drug Abuse Patient Records regulations: The Federal rules restrict any use of the information to criminally investigate or prosecute any alcohol or drug abuse patient.[facility]In the event this information is protected by the Federal Confidentiality of Alcohol and Drug Abuse Patient Records regulations: The Federal rules restrict any use of the information to criminally investigate or prosecute any alcohol or drug abuse patient.[facility]In the event this information is protected by the Federal Confidentiality of Alcohol and Drug Abuse Patient Records regulations: The Federal rules restrict any use of the information to criminally investigate or prosecute any alcohol or drug abuse patient.[facility]In the event this information is protected by the Federal Confidentiality of Alcohol and Drug Abuse Patient Records regulations: The Federal rules restrict any use of the information to criminally investigate or prosecute any alcohol or drug abuse patient.[facility]In the event this information is protected by the Federal Confidentiality of Alcohol and Drug Abuse Patient Records regulations: The Federal rules restrict any use of the information to criminally investigate or prosecute any alcohol or drug abuse patient.[facility]In the event this information is protected by the Federal Confidentiality of Alcohol and Drug Abuse Patient Records regulations: The Federal rules restrict any use of the information to criminally investigate or prosecute any alcohol or drug abuse patient.[facility]In the event this information is protected by the Federal Confidentiality of Alcohol and Drug Abuse Patient Records regulations: The Federal rules restrict any use of the information to criminally investigate or prosecute any alcohol or drug abuse patient.[facility]In the event this information is protected by the Federal Confidentiality of Alcohol and Drug Abuse Patient Records regulations: The Federal rules restrict any use of the information to criminally investigate or prosecute any alcohol or drug abuse patient.[facility]In the event this information is protected by the Federal Confidentiality of Alcohol and Drug Abuse Patient Records regulations: The Federal rules restrict any use of the information to criminally investigate or prosecute any alcohol or drug abuse patient.[facility]In the event this information is protected by the Federal Confidentiality of Alcohol and Drug Abuse Patient Records regulations: The Federal rules restrict any use of the information to criminally investigate or prosecute any alcohol or drug abuse patient.[facility]In the event this information is protected by the Federal Confidentiality of Alcohol and Drug Abuse Patient Records regulations: The Federal rules restrict any use of the information to criminally investigate or prosecute any alcohol or drug abuse patient.[facility]In the event this information is protected by the Federal Confidentiality of Alcohol and Drug Abuse Patient Records regulations: The Federal rules restrict any use of the information to criminally investigate or prosecute any alcohol or drug abuse patient.[facility]In the event this information is protected by the Federal Confidentiality of Alcohol and Drug Abuse Patient Records regulations: The Federal rules restrict any use of the information to criminally investigate or prosecute any alcohol or drug abuse patient.[facility]In the event this information is protected by the Federal Confidentiality of Alcohol and Drug Abuse Patient Records regulations: The Federal rules restrict any use of the information to criminally investigate or prosecute any alcohol or drug abuse patient.[facility]In the event this information is protected by the Federal Confidentiality of Alcohol and Drug Abuse Patient Records regulations: The Federal rules restrict any use of the information to criminally investigate or prosecute any alcohol or drug abuse patient.[facility]In the event this information is protected by the Federal Confidentiality of Alcohol and Drug Abuse Patient Records regulations: The Federal rules restrict any use of the information to criminally investigate or prosecute any alcohol or drug abuse patient.[facility]In the event this information is protected by the Federal Confidentiality of Alcohol and Drug Abuse Patient Records regulations: The Federal rules restrict any use of the information to criminally investigate or prosecute any alcohol or drug abuse patient.[facility]In the event this information is protected by the Federal Confidentiality of Alcohol and Drug Abuse Patient Records regulations: The Federal rules restrict any use of the information to criminally investigate or prosecute any alcohol or drug abuse patient.[facility]In the event this information is protected by the Federal Confidentiality of Alcohol and Drug Abuse Patient Records regulations: The Federal rules restrict any use of the information to criminally investigate or prosecute any alcohol or drug abuse patient.[facility]In the event this information is protected by the Federal Confidentiality of Alcohol and Drug Abuse Patient Records regulations: The Federal rules restrict any use of the information to criminally investigate or prosecute any alcohol or drug abuse patient.[facility]In the event this information is protected by the Federal Confidentiality of Alcohol and Drug Abuse Patient Records regulations: The Federal rules restrict any use of the information to criminally investigate or prosecute any alcohol or drug abuse patient.[facility]In the event this information is protected by the Federal Confidentiality of Alcohol and Drug Abuse Patient Records regulations: The Federal rules restrict any use of the information to criminally investigate or prosecute any alcohol or drug abuse patient.[facility]In the event this information is protected by the Federal Confidentiality of Alcohol and Drug Abuse Patient Records regulations: The Federal rules restrict any use of the information to criminally investigate or prosecute any alcohol or drug abuse patient.[facility]In the event this information is protected by the Federal Confidentiality of Alcohol and Drug Abuse Patient Records regulations: The Federal rules restrict any use of the information to criminally investigate or prosecute any alcohol or drug abuse patient.[facility]In the event this information is protected by the Federal Confidentiality of Alcohol and Drug Abuse Patient Records regulations: The Federal rules restrict any use of the information to criminally investigate or prosecute any alcohol or drug abuse patient.[facility]In the event this information is protected by the Federal Confidentiality of Alcohol and Drug Abuse Patient Records regulations: The Federal rules restrict any use of the information to criminally investigate or prosecute any alcohol or drug abuse patient.[facility]In the event this information is protected by the Federal Confidentiality of Alcohol and Drug Abuse Patient Records regulations: The Federal rules restrict any use of the information to criminally investigate or prosecute any alcohol or drug abuse patient.[facility]In the event this information is protected by the Federal Confidentiality of Alcohol and Drug Abuse Patient Records regulations: The Federal rules restrict any use of the information to criminally investigate or prosecute any alcohol or drug abuse patient.[facility]In the event this information is protected by the Federal Confidentiality of Alcohol and Drug Abuse Patient Records regulations: The Federal rules restrict any use of the information to criminally investigate or prosecute any alcohol or drug abuse patient.[facility]In the event this information is protected by the Federal Confidentiality of Alcohol and Drug Abuse Patient Records regulations: The Federal rules restrict any use of the information to criminally investigate or prosecute any alcohol or drug abuse patient.[facility]In the event this information is protected by the Federal Confidentiality of Alcohol and Drug Abuse Patient Records regulations: The Federal rules restrict any use of the information to criminally investigate or prosecute any alcohol or drug abuse patient.[facility]In the event this information is protected by the Federal Confidentiality of Alcohol and Drug Abuse Patient Records regulations: The Federal rules restrict any use of the information to criminally investigate or prosecute any alcohol or drug abuse patient.[facility]In the event this information is protected by the Federal Confidentiality of Alcohol and Drug Abuse Patient Records regulations: The Federal rules restrict any use of the information to criminally investigate or prosecute any alcohol or drug abuse patient.[facility]In the event this information is protected by the Federal Confidentiality of Alcohol and Drug Abuse Patient Records regulations: The Federal rules restrict any use of the information to criminally investigate or prosecute any alcohol or drug abuse patient.[facility]In the event this information is protected by the Federal Confidentiality of Alcohol and Drug Abuse Patient Records regulations: The Federal rules restrict any use of the information to criminally investigate or prosecute any alcohol or drug abuse patient.[facility]In the event this information is protected by the Federal Confidentiality of Alcohol and Drug Abuse Patient Records regulations: The Federal rules restrict any use of the information to criminally investigate or prosecute any alcohol or drug abuse patient.[facility]In the event this information is protected by the Federal Confidentiality of Alcohol and Drug Abuse Patient Records regulations: The Federal rules restrict any use of the information to criminally investigate or prosecute any alcohol or drug abuse patient.[facility]In the event this information is protected by the Federal Confidentiality of Alcohol and Drug Abuse Patient Records regulations: The Federal rules restrict any use of the information to criminally investigate or prosecute any alcohol or drug abuse patient.[facility]In the event this information is protected by the Federal Confidentiality of Alcohol and Drug Abuse Patient Records regulations: The Federal rules restrict any use of the information to criminally investigate or prosecute any alcohol or drug abuse patient.[facility]In the event this information is protected by the Federal Confidentiality of Alcohol and Drug Abuse Patient Records regulations: The Federal rules restrict any use of the information to criminally investigate or prosecute any alcohol or drug abuse patient.[facility]In the event this information is protected by the Federal Confidentiality of Alcohol and Drug Abuse Patient Records regulations: The Federal rules restrict any use of the information to criminally investigate or prosecute any alcohol or drug abuse patient.[facility]In the event this information is protected by the Federal Confidentiality of Alcohol and Drug Abuse Patient Records regulations: The Federal rules restrict any use of the information to criminally investigate or prosecute any alcohol or drug abuse patient.[facility]In the event this information is protected by the Federal Confidentiality of Alcohol and Drug Abuse Patient Records regulations: The Federal rules restrict any use of the information to criminally investigate or prosecute any alcohol or drug abuse patient.[facility]In the event this information is protected by the Federal Confidentiality of Alcohol and Drug Abuse Patient Records regulations: The Federal rules restrict any use of the information to criminally investigate or prosecute any alcohol or drug abuse patient.[facility]In the event this information is protected by the Federal Confidentiality of Alcohol and Drug Abuse Patient Records regulations: The Federal rules restrict any use of the information to criminally investigate or prosecute any alcohol or drug abuse patient.[facility]In the event this information is protected by the Federal Confidentiality of Alcohol and Drug Abuse Patient Records regulations: The Federal rules restrict any use of the information to criminally investigate or prosecute any alcohol or drug abuse patient.[facility]In the event this information is protected by the Federal Confidentiality of Alcohol and Drug Abuse Patient Records regulations: The Federal rules restrict any use of the information to criminally investigate or prosecute any alcohol or drug abuse patient.[facility]In the event this information is protected by the Federal Confidentiality of Alcohol and Drug Abuse Patient Records regulations: The Federal rules restrict any use of the information to criminally investigate or prosecute any alcohol or drug abuse patient.[facility]In the event this information is protected by the Federal Confidentiality of Alcohol and Drug Abuse Patient Records regulations: The Federal rules restrict any use of the information to criminally investigate or prosecute any alcohol or drug abuse patient.[facility]In the event this information is protected by the Federal Confidentiality of Alcohol and Drug Abuse Patient Records regulations: The Federal rules restrict any use of the information to criminally investigate or prosecute any alcohol or drug abuse patient.[facility]In the event this information is protected by the Federal Confidentiality of Alcohol and Drug Abuse Patient Records regulations: The Federal rules restrict any use of the information to criminally investigate or prosecute any alcohol or drug abuse patient.[facility]In the event this information is protected by the Federal Confidentiality of Alcohol and Drug Abuse Patient Records regulations: The Federal rules restrict any use of the information to criminally investigate or prosecute any alcohol or drug abuse patient.[facility]In the event this information is protected by the Federal Confidentiality of Alcohol and Drug Abuse Patient Records regulations: The Federal rules restrict any use of the information to criminally investigate or prosecute any alcohol or drug abuse patient.[facility]In the event this information is protected by the Federal Confidentiality of Alcohol and Drug Abuse Patient Records regulations: The Federal rules restrict any use of the information to criminally investigate or prosecute any alcohol or drug abuse patient.[facility]In the event this information is protected by the Federal Confidentiality of Alcohol and Drug Abuse Patient Records regulations: The Federal rules restrict any use of the information to criminally investigate or prosecute any alcohol or drug abuse patient.[facility]In the event this information is protected by the Federal Confidentiality of Alcohol and Drug Abuse Patient Records regulations: The Federal rules restrict any use of the information to criminally investigate or prosecute any alcohol or drug abuse patient.[facility]In the event this information is protected by the Federal Confidentiality of Alcohol and Drug Abuse Patient Records regulations: The Federal rules restrict any use of the information to criminally investigate or prosecute any alcohol or drug abuse patient.[facility]In the event this information is protected by the Federal Confidentiality of Alcohol and Drug Abuse Patient Records regulations: The Federal rules restrict any use of the information to criminally investigate or prosecute any alcohol or drug abuse patient.[facility]In the event this information is protected by the Federal Confidentiality of Alcohol and Drug Abuse Patient Records regulations: The Federal rules restrict any use of the information to criminally investigate or prosecute any alcohol or drug abuse patient.[facility]In the event this information is protected by the Federal Confidentiality of Alcohol and Drug Abuse Patient Records regulations: The Federal rules restrict any use of the information to criminally investigate or prosecute any alcohol or drug abuse patient.[facility]In the event this information is protected by the Federal Confidentiality of Alcohol and Drug Abuse Patient Records regulations: The Federal rules restrict any use of the information to criminally investigate or prosecute any alcohol or drug abuse patient.[facility]In the event this information is protected by the Federal Confidentiality of Alcohol and Drug Abuse Patient Records regulations: The Federal rules restrict any use of the information to criminally investigate or prosecute any alcohol or drug abuse patient.[facility]In the event this information is protected by the Federal Confidentiality of Alcohol and Drug Abuse Patient Records regulations: The Federal rules restrict any use of the information to criminally investigate or prosecute any alcohol or drug abuse patient.[facility]In the event this information is protected by the Federal Confidentiality of Alcohol and Drug Abuse Patient Records regulations: The Federal rules restrict any use of the information to criminally investigate or prosecute any alcohol or drug abuse patient.[facility]In the event this information is protected by the Federal Confidentiality of Alcohol and Drug Abuse Patient Records regulations: The Federal rules restrict any use of the information to criminally investigate or prosecute any alcohol or drug abuse patient.[facility]In the event this information is protected by the Federal Confidentiality of Alcohol and Drug Abuse Patient Records regulations: The Federal rules restrict any use of the information to criminally investigate or prosecute any alcohol or drug abuse patient.[facility]In the event this information is protected by the Federal Confidentiality of Alcohol and Drug Abuse Patient Records regulations: The Federal rules restrict any use of the information to criminally investigate or prosecute any alcohol or drug abuse patient.[facility]In the event this information is protected by the Federal Confidentiality of Alcohol and Drug Abuse Patient Records regulations: The Federal rules restrict any use of the information to criminally investigate or prosecute any alcohol or drug abuse patient.[facility]In the event this information is protected by the Federal Confidentiality of Alcohol and Drug Abuse Patient Records regulations: The Federal rules restrict any use of the information to criminally investigate or prosecute any alcohol or drug abuse patient.[facility] the event this information is protected by the Federal Confidentiality of Alcohol and Drug Abuse Patient Records regulations: The Federal rules restrict any use of the information to criminally investigate or prosecute any alcohol or drug abuse patient.[facility] the event this information is protected by the Federal Confidentiality of Alcohol and Drug Abuse Patient Records regulations: The Federal rules restrict any use of the information to criminally investigate or prosecute any alcohol or drug abuse patient.[facility] the event this information is protected by the Federal Confidentiality of Alcohol and Drug Abuse Patient Records regulations: The Federal rules restrict any use of the information to criminally investigate or prosecute any alcohol or drug abuse patient.[facility] the event this information is protected by the Federal Confidentiality of Alcohol and Drug Abuse Patient Records regulations: The Federal rules restrict any use of the information to criminally investigate or prosecute any alcohol or drug abuse patient.[facility] the event this information is protected by the Federal Confidentiality of Alcohol and Drug Abuse Patient Records regulations: The Federal rules restrict any use of the information to criminally investigate or prosecute any alcohol or drug abuse patient.[facility] the event this information is protected by the Federal Confidentiality of Alcohol and Drug Abuse Patient Records regulations: The Federal rules restrict any use of the information to criminally investigate or prosecute any alcohol or drug abuse patient.[facility] the event this information is protected by the Federal Confidentiality of Alcohol and Drug Abuse Patient Records regulations: The Federal rules restrict any use of the information to criminally investigate or prosecute any alcohol or drug abuse patient.[facility] the event this information is protected by the Federal Confidentiality of Alcohol and Drug Abuse Patient Records regulations: The Federal rules restrict any use of the information to criminally investigate or prosecute any alcohol or drug abuse patient.[facility] the event this information is protected by the Federal Confidentiality of Alcohol and Drug Abuse Patient Records regulations: The Federal rules restrict any use of the information to criminally investigate or prosecute any alcohol or drug abuse patient.[facility] the event this information is protected by the Federal Confidentiality of Alcohol and Drug Abuse Patient Records regulations: The Federal rules restrict any use of the information to criminally investigate or prosecute any alcohol or drug abuse patient.[facility] Reason for Visit (unrecogniz ed section and content) Reason Onset Date Comments Refill Request 05/31/2021 Reason Onset Date Comments Radiology Mammogram 06/07/2021 at [facility] Reason Comments Consult cellulitis above rig ht breast Specialty Diagnoses / Procedures Referred By Jen t Referred To Contact General Surgery Diagnoses Cellulitis of female breast Procedures CONSULT TO GENERAL SURGERY OFFICE/OUTPATIENT [facility] 60-74 MINUTES Celeste Salcedo, RAMAKRISHNA.TRACK PRODUCTION ENGINEER [address] [place] [address] Referral ID Status Reason Start Date Expiration Date Visits Requested Visits Authorized [id number] Pending Review PCP Requested Referral 06/24/2021 06/24/2022 1 1 Reason Comments Yearly Exam Reason Comments Radiology Mammogram Specialty Diagnoses / Procedures Referred By Jen t Referred To Contact BR IMAGING Diagnoses Abnormal mammogram Procedures HARSH DIAGNOSTIC RT DIAGNOSTIC MAMMOGRAPHY COMPUTER-AIDED DETCJ Akira Poole MD [address] [place] [address] Br Imaging [address] [place] [address] Referral ID Status Reason Start Date Expiration Date V isits Requested Visits Authorized [id number] Closed Auto-Generate d Referral 06/07/2021 07/07/2022 1 1 Reason Comments Results Right breast mass, U S and Mammogram Reason Onset Date Comments Refill Request 07/22/2021 Reason Comments Scheduling right breast biopsy Reason Comments Procedure Reason Comments Follow Up right breast biopsy results Reason Comments Pit Manager - Other Reason Comments Consult Breast Cancer Reason Comments New Patient right breast cancer Reason Comments Breast Problem Reason Comments Patient Education RIGHT breast gregory sc out localized lumpectomy, RIGHT sentinel lymph node mapping and biopsy Reason Comments Consult Reason Comments Post Op Reason Comments Breast Cancer Reason Comments Established Patient Breast Cancer Reason Comments Appointment Specialty Diagnoses / Procedures Referred By Contac t Referred To Contact Diagnoses Screening mammogram, encounter for Family history of breast cancer Malignant neoplasm of 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, estrogen receptor positive (HCC) Procedures CONSULT TO MEDICAL GENETICS - CANCER MEDICAL GENETICS COUNSELING EACH 30 [place] [address] [place] [address] [facility] [place] [id number] Referral ID Status Reason Start Date Expiration Date V isits Requested Visits Authorized [id number] Closed PCP Requested Referral Auto-Generated Referral 09/26/2021 12/25/2021 1 1 Reason Comments OT EVAL Specialty Diagnoses / Procedures [facility]erred By [facility] Referred To Contact [facility] Diagnoses Malignant neoplasm of 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, estrogen receptor positive (HCC) Procedures CONSULT TO BREAST REHAB PROGRAM THERAPEUTIC EXERCISES RE, EA 15 MIN. THERAPEUT ACTVITY DIRECT PT CONTACT EACH 15 MIN Dana Flores PA-C [address] [place] [address] [facility] [address] [address] Referral ID Status Reason Start Date Expiration Date Visits Requested Visits Authorized [id number] Authorized PCP Requested Referral Auto-Generate d Referral 03/09/2021 03/08/2022 20 20 Reason Comments Breast Cancer Established Patient Reason Comments Consent Presentation BR007 Reason Onset Date Comments Refill Request 11/15/2021 Reason Comments Screening BR007 Reason Comments Results Genetic testing Reason Comments Clinical Trial Draw - BR007 Reason Comments Patient Update Reason Comments F/U 6 months Reason Comments Established Patient Reason Comments Clinical TrialDraw - BR007 Reason Comments Future Appointment Reason Comments dental clearance Reason Comments Benefits Investigation Reason Comments Non-Chemotherapy Treatment Specialty Diagnoses / Procedures Referred By Contac t Referred To Contact Diagnoses Invasive ductal carcinoma of breast, right (HCC) Procedures INJECTION, ZOLEDRONIC ACID, 1 MG Nahun Zavaleta, DO [address] [place] [address] Josiah [facility] [address] [place] [address] Referral ID Status Reason Start Date Expiration Date V isits Requested Visits Authorized [id number] Authorized 02/13/2022 03/08/2023 99 99 Reason Comments Care Coordination Pain Reason Comments Pit Manager - ED Follow Up Reason Comments Refill Request Reason Onset Date Comments Refill Request 06/07/2022 Reason Comments F/U 6 Month Reason Comments Results Reason Comments Consult Specialty Diagnoses / Procedures Referred By Contac t Referred To Contact Endocrinology Diagnoses Low TSH level Procedures CONSULT TO ENDOCRINOLOGY OFFICE/OUTPATIENT [facility] MDM 60-74 MINUTES Celeste Salcedo, PRIVATE TUTOR.TRACK PRODUCTION ENGINEER [address] [place] [address] Referral ID Status Reason Start Date Expiration Date Visits Requested Visits Authorized [id number] Pending Review PCP Requested Referral 06/23/2022 06/23/2023 1 1 Reason Comments Follow Up Reason Comments Consult Right facial lesion Reason Comments Clinical Update Reason Comments Patient Question Reason Comments Research CTD Reason Comments Research CTD 12 Month BR007 Reason Comments Follow Up Reason Comments Radiology US Specialty Diagnoses / Procedures Referred By Contac t Referred To Contact US IMAGING Diagnoses Nontoxic multinodular goiter Procedures US THYROID/PARATHYROID US SOFT TISSUE HEAD & NECK REAL TIME IMGE Celeste Peterson, PRIVATE TUTOR.TRACK PRODUCTION ENGINEER [address] [place] [address] [place] [address] Referral ID Status Reason Start Date Expiration Date V isits Requested Visits Authorized [id number] Closed Auto-Generate d Referral 06/20/2022 07/20/2023 1 1 Specialty Diagnoses / Procedures Referred By Contac t Referred To Contact [facility] IMAGING Diagnoses Nontoxic multinodular goiter Procedures US THYROID/PARATHYROID US SOFT TISSUE HEAD & NECK REAL TIME IMGE Patrice Roy MD [address] [place] [address] [place] [address] Referral ID Status Reason Start Date Expiration Date V isits Requested Visits Authorized [id number] Closed Auto-Generate d Referral 12/15/2022 01/14/2024 1 1 Reason Comments No Show Reason Comments Future Appointment Reason Comments Established Patient Reason Onset Date Comments Refill Request 05/31/2023 Reason Comments Consult Epigastric pain Specialty Diagnoses / Procedures Referred By Contac t Referred To Contact General Surgery Diagnoses Epigastric pain Procedures CONSULT TO GENERAL SURGERY OFFICE/OUTPATIENT [facility] MDM 60 MINUTES Nahun Zavaleta, [address] [place] [address] Referral ID Status Reason Start Date Expiration Date V isits Requested Visits Authorized [id number] Closed PCP Requested Referral 05/25/2023 05/24/2024 1 1 Reason Comments Preparations For Surgery Pre-op Instruct ions Reason Comments FMLA Paperwork Reason Comments Post-Op Visit 06/10 ventral hernia r epair Reason Onset Date Comments Refill Request 11/07/2023 Reason Comments Established Patient Reason Onset Date Comments Refill Request 11/24/2023 Reason Comments Radiology Mammogram US Specialty Diagnoses / Procedures Referred By Contac t Referred To Contact BR IMAGING Diagnoses Abnormal mammogram Personal history of breast cancer Procedures HARSH DIAGNOSTIC RT DIAGNOSTIC MAMMOGRAPHY COMPUTER-AIDED DETCJ UNI Dana Flores PA-C [address] [place] [address] [facility] Imaging [address] [place] [address] Referral ID Status Reason Start Date Expiration Date V isits Requested Visits Authorized [id number] Closed Auto-Generate d Referral 04/23/2022 05/23/2023 1 1 Reason Comments Radiology NM Reason Comments 06/11/2023 LAP HERNIA REPAIR MEJIA Reason Onset Date Comments Refill Request 02/22/2024 Reason Onset Date Comments Refill Request 03/21/2024 Reason Onset Date Comments Refill Request 06/05/2024 Care Teams (unrecognized sec tion and content) Publication Distributor Relationship Specialty Start Date End Date Akira Pierre MD [address] [place] [address] PCP - General Internal Medicine 12/22/11 Publication Distributor Relationship Specialty Start Date End Date Akira Pierre MD [address] [place] [address] PCP - General Internal Medicine 12/22/11 Publication Distributor Relationship Specialty Start Date End Date Akira Pierre MD [facility] [address] PCP - General Internal Medicine 12/22/11 Publication Distributor Relationship Specialty Start Date End Date Akira Pierre MD [address] [place] [address], [place] [address] PCP - General Internal Medicine 12/22/11 Publication Distributor Relationship Specialty Start Date End Date Akira Pierre MD [address] [place] [address], [place] [address] PCP - General Internal Medicine 12/22/11 Publication Distributor Relationship Specialty Start Date End Date Akira Pierre MD [address] [place] [address], [place] [address] PCP - General Internal Medicine 12/22/11 Publication Distributor Relationship Specialty Start Date End Date Akira Pierre MD [address] [place] [address], [place] [address] PCP - General Internal Medicine 12/22/11 Publication Distributor Relationship Specialty Start Date End Date Akira Pierre MD [facility] [place] [address] PCP - General Internal Medicine 12/22/11 Publication Distributor Relationship Specialty Start Date End Date Akira Pierre MD [address] [place] [address], [place] [address] PCP - General Internal Medicine 12/22/11 Publication Distributor Relationship Specialty Start Date End Date Akira Pierre MD [address] [place] [address], [place] [address] PCP - General Internal Medicine 12/22/11 Publication Distributor Relationship Specialty Start Date End Date Akira Pierre MD [address] [place] [address] PCP - General Internal Medicine 12/22/11 Publication Distributor Relationship Specialty Start Date End Date Akira Pierre MD [address] [place] [address] PCP - General Internal Medicine 12/22/11 [place] [address] [place] [address] Physician Radiation Oncology 09/26/21 Publication Distributor Relationship Specialty Start Date End Date Akira Pierre MD [address] [place] [address] PCP - General Internal Medicine 12/22/11 [place] [address] [place] [address] Physician Radiation Oncology 09/26/21 Publication Distributor Relationship Specialty Start Date End Date Akira Pierre MD [address] [place] [address] PCP - General Internal Medicine 12/22/11 [place] [address] [place] [address] Physician Radiation Oncology 09/26/21 Publication Distributor Relationship Specialty Start Date End Date Akira Pierre MD [address] [place] [address] PCP - General Internal Medicine 12/22/11 [place] [address] [place] [address] Physician Radiation Oncology 09/26/21 Publication Distributor Relationship Specialty Start Date End Date Akira Pierre MD [address] [place] [address] PCP - General Internal Medicine 12/22/11 [place] [address] [place] [address] Physician Radiation Oncology 09/26/21 Publication Distributor Relationship Specialty Start Date End Date Akira Pierre MD [address] [place] [address] PCP - General Internal Medicine 12/22/11 [place] [address] [place] [address] Physician Radiation Oncology 09/26/21 Publication Distributor Relationship Specialty Start Date End Date Akira Pierre MD [address] [place] [address] PCP - General Internal Medicine 12/22/11 [place] [address] [place] [address] Physician Radiation Oncology 09/26/21 Publication Distributor Relationship Specialty Start Date End Date Akira Pierre MD [address] [place] [address] PCP - General Internal Medicine 12/22/11 [place] [address] [place] [address] Physician Radiation Oncology 09/26/21 Publication Distributor Relationship Specialty Start Date End Date Akira Pierre MD [address] [place] [address] PCP - General Internal Medicine 12/22/11 [place] [address] [place] [address] Physician Radiation Oncology 09/26/21 Publication Distributor Relationship Specialty Start Date End Date Akira Pierre MD [address] [place] [address] PCP - General Internal Medicine 12/22/11 [place] [address] [place] [address] Physician Radiation Oncology 09/26/21 Publication Distributor Relationship Specialty Start Date End Date Akira Pierre MD [address] [place] [address] PCP - General Internal Medicine 12/22/11 [place] [address] [place] [address] Physician Radiation Oncology 09/26/21 Publication Distributor Relationship Specialty Start Date End Date Akira Pierre MD [address] [place] [address] PCP - General Internal Medicine 12/22/11 [place] [address] [place] [address] Physician Radiation Oncology 09/26/21 Gladis Byrd MD, [address] [place] [address] Physician Radiation Oncology 11/01/21 Publication Distributor Relationship Specialty Start Date End Date Akira Pierre MD [address] [place] [address] PCP - General Internal Medicine 12/22/11 [place] [address] [place] [address] Physician Radiation Oncology 09/26/21 Gladis Byrd MD, [address] [facility] [place] [address] Physician Radiation Oncology 11/01/21 Publication Distributor Relationship Specialty Start Date End Date Akira Pierre MD [address] [place] [address] PCP - General Internal Medicine 12/22/11 [place] [address] [place] [address] Physician Radiation Oncology 09/26/21 Gladis Byrd MD, [address] [facility] [place] [address] Physician Radiation Oncology 11/01/21 Publication Distributor Relationship Specialty Start Date End Date Akira Pierre MD [address] [place] [address] PCP - General Internal Medicine 12/22/11 [place] [address] [place] [address] Physician Radiation Oncology 09/26/21 Gladis Byrd MD, [address] [place] [address] Physician Radiation Oncology 11/01/21 Publication Distributor Relationship Specialty Start Date End Date Akira Pierre MD [address] [place] [address] PCP - General Internal Medicine 12/22/11 [place] [address] [place] [address] Physician Radiation Oncology 09/26/21 Gladis Byrd MD, [address] [facility] [place] [address] Physician Radiation Oncology 11/01/21 Publication Distributor Relationship Specialty Start Date End Date Akira Pierre MD [address] [place] [address] PCP - General Internal Medicine 12/22/11 [place] [address] [place] [address] Physician Radiation Oncology 09/26/21 Gladis Byrd MD, [address] [facility] [place] [address] Physician Radiation Oncology 11/01/21 Publication Distributor Relationship Specialty Start Date End Date Akira Pierre MD [address] [place] [address] PCP - General Internal Medicine 12/22/11 [place] [address] [place] [address] Physician Radiation Oncology 09/26/21 Gladis Byrd MD, [address] [facility] [place] [address] Physician Radiation Oncology 11/01/21 Publication Distributor Relationship Specialty Start Date End Date Akira Pierre MD [address] [place] [address] PCP - General Internal Medicine 12/22/11 [place] [address] [place] [address] Physician Radiation Oncology 09/26/21 Gladis Byrd MD, [address] [facility] [place] [address] Physician Radiation Oncology 11/01/21 Publication Distributor Relationship Specialty Start Date End Date Akira Pierre MD [address] [place] [address] PCP - General Internal Medicine 12/22/11 [place] [address] [place] [address] Physician Radiation Oncology 09/26/21 Gladis Byrd MD, [address] [place] [address] Physician Radiation Oncology 11/01/21 Publication Distributor Relationship Specialty Start Date End Date Akira Pierre MD [address] [place] [address] PCP - General Internal Medicine 12/22/11 [place] [address] [place] [address] Physician Radiation Oncology 09/26/21 Gladis Byrd MD, [address] [place] [address] Physician Radiation Oncology 11/01/21 Nahun Zavaleta DO [address] [place] [address] Hematology/Oncology 03/18/22 Publication Distributor Relationship Specialty Start Date End Date Akira Pierre MD [address] [place] [address] PCP - General Internal Medicine 12/22/11 [place] [address] [place] [address] Physician Radiation Oncology 09/26/21 Gladis Byrd MD, [address] [place] [address] Physician Radiation Oncology 11/01/21 Nahun Zavaleta, DO [address] [place] [address] Hematology/Oncology 03/18/22 Publication Distributor Relationship Specialty Start Date End Date Akira Pierre MD [address] [place] [address] PCP - General Internal Medicine 12/22/11 [place] [address] [place] [address] Physician Radiation Oncology 09/26/21 Gladis Byrd MD, MD [address] [place] [address] Physician Radiation Oncology 11/01/21 Nahun Zavaleta, DO [address] [place] [address] Hematology/Oncology 03/18/22 Publication Distributor Relationship Specialty Start Date End Date Akira Pierre MD [address] [place] [address] PCP - General Internal Medicine 12/22/11 [place] [address] [place] [address] Physician Radiation Oncology 09/26/21 Gladis Byrd MD, [address] [place] [address] Physician Radiation Oncology 11/01/21 Nahun Zavaleta, DO [address] [place] [address] Hematology/Oncology 03/18/22 Team Status: Active Member Role Status Dates Akira Pierre MD Primary Care Provider Active Team Status: Inactive Member Role Status Dates Akira Pierre MD Primary Care Provider Active Dr. Bandar Flanagan MD Emergency Provider Active Publication Distributor Relationship Specialty Start Date End Date Akira Pierre MD [address] [place] [address] PCP - General Internal Medicine 12/22/11 [place] [address] [place] [address] Physician Radiation Oncology 09/26/21 Gladis Byrd MD, [address] [place] [address] Physician Radiation Oncology 11/01/21 Nahun Zavaleta, DO [address] [facility] [place] [address] Hematology/Oncology 03/18/22 Publication Distributor Relationship Specialty Start Date End Date Akira Pierre MD [address] [place] [address] PCP - General Internal Medicine 12/22/11 [place] [address] [place], [place] [address] Physician Radiation Oncology 09/26/21 Gladis Byrd MD, [address] [place] [address] Physician Radiation Oncology 11/01/21 Nahun Zavaleta, DO [address] [place] [address] Hematology/Oncology 03/18/22 Publication Distributor Relationship Specialty Start Date End Date Akria Pierre MD [address] [place] [address] PCP - General Internal Medicine 12/22/11 [place] [address] [place] [address] Physician Radiation Oncology 09/26/21 Gladis Byrd MD, [address] [place] [address] Physician Radiation Oncology 11/01/21 Nahun Zavaleta, DO [address] [place] [address] Hematology/Oncology 03/18/22 Publication Distributor Relationship Specialty Start Date End Date Akira Pierre MD [address] [place] [address] PCP - General Internal Medicine 12/22/11 [place] [address] [place] [address] Physician Radiation Oncology 09/26/21 Gladis Byrd MD, [address] [place] [address] Physician Radiation Oncology 11/01/21 Nahun Zavaleta, DO [address] [facility] [place] [place] [address] Hematology/Oncology 03/18/22 Publication Distributor Relationship Specialty Start Date End Date Akira Pierre MD [address] [place] [address] PCP - General Internal Medicine 12/22/11 [place] [address] [place] [address] Physician Radiation Oncology 09/26/21 Gladis Byrd MD, [address] [place] [address] Physician Radiation Oncology 11/01/21 Nahun Zavaleta, DO [address] [place] [address] Hematology/Oncology 03/18/22 Publication Distributor Relationship Specialty Start Date End Date Akira Pierre MD [address] [place] [address] PCP - General Internal Medicine 12/22/11 [place] [address] [place] [address] Physician Radiation Oncology 09/26/21 Gladis Byrd MD, MD [address] [place] [address] Physician Radiation Oncology 11/01/21 Nahun Zavaleta, DO [address] [place] [address] Hematology/Oncology 03/18/22 Publication Distributor Relationship Specialty Start Date End Date Akira Pierre MD [address] [place] [address] PCP - General Internal Medicine 12/22/11 [place] [address] [place] [address] Physician Radiation Oncology 09/26/21 Gladis Byrd MD, [address] [place] [address] Physician Radiation Oncology 11/01/21 Nahun Zavaleta, DO [address] [place] [address] Hematology/Oncology 03/18/22 Publication Distributor Relationship Specialty Start Date End Date Akira Pierre MD [address] [place] [address] PCP - General Internal Medicine 12/22/11 [place] [address] [place] [address] Physician Radiation Oncology 09/26/21 Gladis Byrd MD, [address] [place] [address] Physician Radiation Oncology 11/01/21 Nahun Zavaleta, DO [address] [place] [address] Hematology/Oncology 03/18/22 Publication Distributor Relationship Specialty Start Date End Date Akira Pierre MD [address] [place] [address] PCP - General Internal Medicine 12/22/11 [place] [address] [place] [address] Physician Radiation Oncology 09/26/21 Gladis Byrd MD, [address] [place] [address] Physician Radiation Oncology 11/01/21 Nahun Zavaleta, DO [address] [place] [address] Hematology/Oncology 03/18/22 Publication Distributor Relationship Specialty Start Date End Date Akira Pierre MD [address] [place] [address] PCP - General Internal Medicine 12/22/11 [place] [address] [place] [address] Physician Radiation Oncology 09/26/21 Gladis Byrd MD, [address] [place] [address] Physician Radiation Oncology 11/01/21 Nahun Zavaleta, DO [address] [place] [address] Hematology/Oncology 03/18/22 Publication Distributor Relationship Specialty Start Date End Date Akira Pierre MD [address] [place] [address] PCP - General Internal Medicine 12/22/11 [place] [address] [place] [address] Physician Radiation Oncology 09/26/21 Gladis Byrd MD, [address] [place] [address] Physician Radiation Oncology 11/01/21 Nahun Zavaleta, DO [address] [place] [address] Hematology/Oncology 03/18/22 Publication Distributor Relationship Specialty Start Date End Date Akira Pierre MD [address] [place] [address] PCP - General Internal Medicine 12/22/11 [place] [address] [place] [address] Physician Radiation Oncology 09/26/21 Gladis Byrd MD, MD [address] [place] [address] Physician Radiation Oncology 11/01/21 Nahun Zavaleta, DO [address] [place] [address] Hematology/Oncology 03/18/22 Team Status: Active Member Role Status Dates Akira HAYNES MD Primary Care Provider Active Team Status: Inactive Member Role Status Dates Akira HAYNES MD Primary Care Provider Active Dr. Bandar Flanagan MD Attending Provider, Emergency Provider Active Team Status: Inactive Member Role Status Dates Akira HAYNES MD Primary Care Provider Active Dr. Quinton Myers MD Attending Provider Active Publication Distributor Relationship Specialty Start Date End Date Akira Pierre MD [address] [place] [address] PCP - General Internal Medicine 12/22/11 [place] [address] [place] [address] Physician Radiation Oncology 09/26/21 Gladis Byrd MD, [address] [place] [address] Physician Radiation Oncology 11/01/21 Nahun Zavaleta, DO [address] [place] [address] Hematology/Oncology 03/18/22 Publication Distributor Relationship Specialty Start Date End Date Akira Pierre MD [address] [place] [address] PCP - General Internal Medicine 12/22/11 [place] [address] [place], [place] [address]36 Physician Radiation Oncology 09/26/21 Gladis Byrd MD, [address] [place] [address] Physician Radiation Oncology 11/01/21 Nahun Zavaleta DO [address] [place] [address] Hematology/Oncology 03/18/22 Publication Distributor Relationship Specialty Start Date End Date Akira Pierre MD [address] [place] [address] PCP - General Internal Medicine 12/22/11 [place] [address] [place], [place] [address]36 Physician Radiation Oncology 09/26/21 Gladis Byrd MD, [address] [facility] [place] [address] Physician Radiation Oncology 11/01/21 Nahun Zavaleta DO [address] [place] [address] Hematology/Oncology 03/18/22 Publication Distributor Relationship Specialty Start Date End Date Akira Pierre MD [address] [place] [address] PCP - General Internal Medicine 12/22/11 [place] [address] [place] [address] Physician Radiation Oncology 09/26/21 Gladis Byrd MD, [address] [place] [address] Physician Radiation Oncology 11/01/21 Nahun Zavaleta DO [address] [place] [address] Hematology/Oncology 03/18/22 Publication Distributor Relationship Specialty Start Date End Date Akira Pierre MD [address] [place] [address] PCP - General Internal Medicine 12/22/11 [place] [address] [place] [address] Physician Radiation Oncology 09/26/21 Gladis Byrd MD, [address] [place] [address] Physician Radiation Oncology 11/01/21 Nahun Zavaleta DO [address] [place] [address] Hematology/Oncology 03/18/22 Publication Distributor Relationship Specialty Start Date End Date Akira Pierre MD [address] [facility] [place] [address] PCP - General Internal Medicine 12/22/11 [place] [address] [place] [address] Physician Radiation Oncology 09/26/21 Gladis Byrd MD, [address] [place] [address] Physician Radiation Oncology 11/01/21 Nahun Zavaleta DO [address] [place] [address] Hematology/Oncology 03/18/22 Publication Distributor Relationship Specialty Start Date End Date Akira Pierre MD [address] [place] [address] PCP - General Internal Medicine 12/22/11 [place] [address] [place] [address] Physician Radiation Oncology 09/26/21 Gladis Byrd MD, [address] [place] [address] Physician Radiation Oncology 11/01/21 Nahun Zavaleta DO [address] [place] [address] Hematology/Oncology 03/18/22 Publication Distributor Relationship Specialty Start Date End Date Akira Pierre MD [address] [facility] [place] [address] PCP - General Internal Medicine 12/22/11 [place] [address] [place] [address] Physician Radiation Oncology 09/26/21 Gladis Byrd MD, [address] [place] [address] Physician Radiation Oncology 11/01/21 Nahun Zavaleta DO [address] [place] [address] Hematology/Oncology 03/18/22 Publication Distributor Relationship Specialty Start Date End Date Akira Pierre MD [address] [place] [address] PCP - General Internal Medicine 12/22/11 [place] [address] [place] [address] Physician Radiation Oncology 09/26/21 Gladis Byrd MD, [address] [place] [address] Physician Radiation Oncology 11/01/21 Nahun Zavaleta DO [address] [place] [address] Hematology/Oncology 03/18/22 Publication Distributor Relationship Specialty Start Date End Date Akira Pierre MD [address] [place] [address] PCP - General Internal Medicine 12/22/11 [place] [address] [place] [address] Physician Radiation Oncology 09/26/21 Gladis Byrd MD, [address] [place] [address] Physician Radiation Oncology 11/01/21 Nahun Zavaleta DO [address] [place] [address] Hematology/Oncology 03/18/22 Publication Distributor Relationship Specialty Start Date End Date Akira Pierre MD [address] [place], [place] [address] PCP - General Internal Medicine 12/22/11 [place] [address] [place] [address] Physician Radiation Oncology 09/26/21 Gladis Byrd MD, [address] [place] [address] Physician Radiation Oncology 11/01/21 Nahun Zavaleta DO [address] [place] [address] Hematology/Oncology 03/18/22 Publication Distributor Relationship Specialty Start Date End Date Akira Pierre MD [address] [place] [address] PCP - General Internal Medicine 12/22/11 [place] [address] [place] [address] Physician Radiation Oncology 09/26/21 Gladis Byrd MD [address] [place] [address] Physician Radiation Oncology 11/01/21 Nahun Zavaleta DO [address] [place] [address] Hematology/Oncology 03/18/22 Publication Distributor Relationship Specialty Start Date End Date Akira Pierre MD [address] [address] PCP - General Internal Medicine 12/22/11 [place] [address] [place] [address] Physician Radiation Oncology 09/26/21 Gladis Byrd MD [address] [place] [address] Physician Radiation Oncology 11/01/21 Nahun Zavaleta DO [address] [place] [address] Hematology/Oncology 03/18/22 Publication Distributor Relationship Specialty Start Date End Date Akira Pierre MD [address] [place] [address] PCP - General Internal Medicine 12/22/11 [place] [address] [place] [address] Physician Radiation Oncology 09/26/21 Gladis Byrd MD [address] [place] [address] Physician Radiation Oncology 11/01/21 Nahun Zavaleta DO [address] [place] [address] Hematology/Oncology 03/18/22 Publication Distributor Relationship Specialty Start Date End Date Akira Pierre MD [address] [place] [address] PCP - General Internal Medicine 12/22/11 [place] [address] [place] [address] Physician Radiation Oncology 09/26/21 Gladis Byrd MD [address] [place] [address] Physician Radiation Oncology 11/01/21 Nahun Zavaleta DO [address] [place] [address] Hematology/Oncology 03/18/22 Publication Distributor Relationship Specialty Start Date End Date Akira Pierre MD [address] [place] [address] PCP - General Internal Medicine 12/22/11 [place] [address] [place] [address] Physician Radiation Oncology 09/26/21 Gladis Byrd MD [address] [place] [address] Physician Radiation Oncology 11/01/21 Nahun Zavaleta DO [address] [place] [address] Hematology/Oncology 03/18/22 Publication Distributor Relationship Specialty Start Date End Date Akira Pierre MD [address] [place] [address] PCP - General Internal Medicine 12/22/11 [place] [address] [place] [address] Physician Radiation Oncology 09/26/21 Gladis Byrd MD [address] [place] [address] Physician Radiation Oncology 11/01/21 Nahun Zavaleta DO [address] [place] [address] Hematology/Oncology 03/18/22 Publication Distributor Relationship Specialty Start Date End Date Akira Pierre MD [address] [place] [address] PCP - General Internal Medicine 12/22/11 [place] [address] [place] [address] Physician Radiation Oncology 09/26/21 Gladis Byrd MD [address] [place] [address] Physician Radiation Oncology 11/01/21 Nahun Zavaleta DO [address] [place] [address] Hematology/Oncology 03/18/22 Publication Distributor Relationship Specialty Start Date End Date Akira Pierre MD [address] [place] [address] PCP - General Internal Medicine 12/22/11 [place] [address] [place] [address] Physician Radiation Oncology 09/26/21 Gladis Byrd MD [address] [place] [address] Physician Radiation Oncology 11/01/21 Nahun Zavaleta DO [address] [place] [address] Hematology/Oncology 03/18/22 Publication Distributor Relationship Specialty Start Date End Date Akira Pierre MD [address] [place] [address] PCP - General Internal Medicine 12/22/11 [place] [address] [place], [place] [address]77436 Physician Radiation Oncology 09/26/21 Gladis Byrd MD [address] [place] [address] Physician Radiation Oncology 11/01/21 Nahun Zavaleta DO [address] [place] [address] Hematology/Oncology 03/18/22 Publication Distributor Relationship Specialty Start Date End Date Akira Pierre MD [address] [place] [address] PCP - General Internal Medicine 12/22/11 [place] [address] [place] [address] Physician Radiation Oncology 09/26/21 Gladis Byrd MD [address] [place] [address] Physician Radiation Oncology 11/01/21 Nahun Zavaleta DO [address] [place] [address] Hematology/Oncology 03/18/22 Team Status: Active Member Role Status Dates Dr. Akira Pierre MD Primary Care Provider Active Team Status: Inactive Member Role Status Dates Dr. Akira Pierre MD Primary Care Provider Active REYNA CASIANO Attending Provider Active Publication Distributor Relationship Specialty Start Date End Date Akira Pierre MD [address] [place], [place] [address] PCP - General Internal Medicine 12/22/11 [place] [address] [place] [address] Physician Radiation Oncology 09/26/21 Gladis Byrd MD [address] [place] [address] Physician Radiation Oncology 11/01/21 Nahun Zavaleta DO [address] [place] [address] Hematology/Oncology 03/18/22 Publication Distributor Relationship Specialty Start Date End Date Akira Pierre MD [address] [place] [address] PCP - General Internal Medicine 12/22/11 [place] [address] [place] [address] Physician Radiation Oncology 09/26/21 Gladis Byrd MD [address] [place] [address] Physician Radiation Oncology 11/01/21 Nahun Zavaleta DO [address] [place] [address] Hematology/Oncology 03/18/22 Publication Distributor Relationship Specialty Start Date End Date Akira Pierre MD [address] [place] [address] PCP - General Internal Medicine 12/22/11 [place] [address] [place], [place] [address] Physician Radiation Oncology 09/26/21 Gladis Byrd MD [address] [place] [address] Physician Radiation Oncology 11/01/21 Nahun Zavaleta DO [address] [place] [address] Hematology/Oncology 03/18/22 Publication Distributor Relationship Specialty Start Date End Date Akira Pierre MD [address] [place] [address] PCP - General Internal Medicine 12/22/11 [place] [address] [place], [place] [address]25[address] Physician Radiation Oncology 09/26/21 Gladis Byrd MD [address] [place] [address] Physician Radiation Oncology 11/01/21 Nahun Zavaleta DO [address] [place] [address] Hematology/Oncology 03/18/22 Publication Distributor Relationship Specialty Start Date End Date Akira Pierre MD [address] [place] [address] PCP - General Internal Medicine 12/22/11 [place] [address] [place], [place] 1137436 Physician Radiation Oncology 09/26/21 Gladis Byrd MD [address] [place] [address] Physician Radiation Oncology 11/01/21 Nahun Zavaleta DO [address] [place] [address] Hematology/Oncology 03/18/22 Publication Distributor Relationship Specialty Start Date End Date Akira Pierre MD [address] [place] [address] PCP - General Internal Medicine 12/22/11 [place] [address] [place] [address] Physician Radiation Oncology 09/26/21 Gladis Byrd MD [address] [place] [address] Physician Radiation Oncology 11/01/21 Nahun Zavaleta DO [address] [place] [address] Hematology/Oncology 03/18/22 Publication Distributor Relationship Specialty Start Date End Date Akira Pierre MD [address] [place], [place] [address]35821 PCP - General Internal Medicine 12/22/11 [place] [address] [place] [address] Physician Radiation Oncology 09/26/21 Publication Distributor Relationship Specialty Start Date End Date Akira Pierre MD [address] [place], [place] [address]5091 PCP - General Internal Medicine 12/22/11 [place] [address] [place] [address] Physician Radiation Oncology 09/26/21 Publication Distributor Relationship Specialty Start Date End Date Akira Pierre MD [address] [place], [place] 214831 PCP - General Internal Medicine 12/22/11 [place] [address] [place] [address] Physician Radiation Oncology 09/26/21 Gladis Byrd MD [address] [place] [address] Physician Radiation Oncology 11/01/21 Nahun Zavaleta DO [address] [place] [address] Hematology/Oncology 03/18/22 Publication Distributor Relationship Specialty Start Date End Date Akira Pierre MD [address] [place] [address] PCP - General Internal Medicine 12/22/11 [place] [address] [place] [address] Physician Radiation Oncology 09/26/21 Gladis Byrd MD [address] [place] [address] Physician Radiation Oncology 11/01/21 Nahun Zavaleta DO [address] [place] [address] Hematology/Oncology 03/18/22 Celeste Salcedo, PRIVATE TUTOR.TRACK PRODUCTION ENGINEER [address] [place] [address] Quality Assurance/R&D Lab Technician Internal Medicine 02/15/24 Kimber Camp, PRIVATE TUTOR.BANK ANALYST [address] [place] [address] Quality Assurance/R&D Lab Technician Internal Medicine 02/15/24 Publication Distributor Relationship Specialty Start Date End Date Akira Pierre MD [address] [place] [address] PCP - General Internal Medicine 12/22/11 [place] [address] [place] [address] Physician Radiation Oncology 09/26/21 Gladis Byrd MD [address] [place] [address] Physician Radiation Oncology 11/01/21 Nahun Zavaleta DO [address] [place] [address] Hematology/Oncology 03/18/22 Celeste Salcedo, PRIVATE TUTOR.TRACK PRODUCTION ENGINEER [address] [facility] [place] [address] Quality Assurance/R&D Lab Technician Internal Medicine 02/15/24 Kimber Camp APRN.BANK ANALYST [address] [facility] [place] [address] Quality Assurance/R&D Lab Technician Internal Medicine 02/15/24 Publication Distributor Relationship Specialty Start Date End Date Akira Pierre MD [address] [facility] [place] [address] PCP - General Internal Medicine 12/22/11 [place] [address] [place], [place] 9432436 Physician Radiation Oncology 09/26/21 Gladis Byrd MD [address] [place] [address] Physician Radiation Oncology 11/01/21 Nahun Zavaleta DO [address] [place] [address] Hematology/Oncology 03/18/22 Celeste Salcedo, PRIVATE TUTOR.TRACK PRODUCTION ENGINEER [address] [place] [address] Quality Assurance/R&D Lab Technician Internal Medicine 02/15/24 Kimber Camp APRN.BANK ANALYST [address] [place] [address] [facility] Internal Medicine 02/15/24 Publication Distributor Relationship Specialty Start Date End Date Akira Pierre MD [address] [place] [address] PCP - General Internal Medicine 12/22/11 [place] [address] [place] [address] Physician Radiation Oncology 09/26/21 Gladis Byrd MD [address] [place] [address] Physician Radiation Oncology 11/01/21 Nahun Zavaleta DO [address] [place] [address] Hematology/Oncology 03/18/22 Celeste Salcedo APRN.TRACK PRODUCTION ENGINEER [address] [place] [address] [facility] Internal Medicine 02/15/24 Kimber Camp PRIVATE TUTOR.BANK ANALYST [address] [place] [address] [facility] Internal Medicine 02/15/24 Publication Distributor Relationship Specialty Start Date End Date Akira Pierre MD [address] [place] [address] PCP - General Internal Medicine 12/22/11 [place] [address] [place] [address] Physician Radiation Oncology 09/26/21 Gladis Byrd MD [address] [place] [address] Physician Radiation Oncology 11/01/21 Nahun Zavaleta DO [address] [place] [address] Hematology/Oncology 03/18/22 Celeste Salcedo APRN.TRACK PRODUCTION ENGINEER [address] [place] [address] Quality Assurance/R&D Lab Technician Internal Medicine 02/15/24 Kimber Camp APRN.BANK ANALYST [address] [place] [address] Quality Assurance/R&D Lab Technician Internal Medicine 02/15/24 Publication Distributor Relationship Specialty Start Date End Date Akira Pierre MD [address] [place] [address] PCP - General Internal Medicine 12/22/11 [place] [address] [place] [address] Physician Radiation Oncology 09/26/21 Gladis Byrd MD [address] [place] [address] Physician Radiation Oncology 11/01/21 Nahun Zavaleta DO [address] [place] [address] Hematology/Oncology 03/18/22 Celeste Salcedo, PRIVATE TUTOR.TRACK PRODUCTION ENGINEER [address] [place] [address] Quality Assurance/R&D Lab Technician Internal Medicine 02/15/24 Kimber Camp PRIVATE TUTOR.BANK ANALYST [address] [place] [address] Quality Assurance/R&D Lab Technician Internal Medicine 02/15/24 Publication Distributor Relationship Specialty Start Date End Date Akira Pierre MD [address] [facility] [address] PCP - General Internal Medicine 12/22/11 [place] [address] [place] [address] Physician Radiation Oncology 09/26/21 Gladis Byrd MD [address] [place] [address] Physician Radiation Oncology 11/01/21 Nahun Zavaleta DO [address] [facility] [place] [address] Hematology/Oncology 03/18/22 Celeste Salcedo, PRIVATE TUTOR.TRACK PRODUCTION ENGINEER [address] [place] [address] Quality Assurance/R&D Lab Technician Internal Medicine 02/15/24 Kimber Camp PRIVATE TUTOR.BANK ANALYST [address] [facility] [place] [address] Quality Assurance/R&D Lab Technician Internal Medicine 02/15/24 Publication Distributor Relationship Specialty Start Date End Date Akira Pierre MD [address] [place] [address] PCP - General Internal Medicine 12/22/11 [place] [address] [place], [place] 3104036 Physician Radiation Oncology 09/26/21 Gladis Byrd MD [address] [place] [address] Physician Radiation Oncology 11/01/21 Nahun Zavaleta DO [address] [place] [address] Hematology/Oncology 03/18/22 Celeste Salcedo, PRIVATE TUTOR.TRACK PRODUCTION ENGINEER [address] [place] [address] Quality Assurance/R&D Lab Technician Internal Medicine 02/15/24 Kimber Camp PRIVATE TUTOR.BANK ANALYST [address] [address] Quality Assurance/R&D Lab Technician Internal Medicine 05/31/24 Publication Distributor Relationship Specialty Start Date End Date Akira Pierre MD [address] [place] [address] PCP - General Internal Medicine 12/22/11 [place] [address] [place], [place] 9748336 Physician Radiation Oncology 09/26/21 Gladis Byrd MD [address] [place] [address] Physician Radiation Oncology 11/01/21 Nahun Zavaleta DO [address] [place], [place] [address] Hematology/Oncology 03/18/22 Celeste Salcedo, PRIVATE TUTOR.TRACK PRODUCTION ENGINEER [address] [place], [place] [id number] [facility] Internal Medicine 02/15/24 Kimber Camp PRIVATE TUTOR.BANK ANALYST [address] [place], [place] [address] [facility] Internal Medicine 05/31/24 Team Status: Inactive Member Role Status Dates Dr. Akira Pierre MD Primary Care Provider Active Start: August 10, 2024 End: August 10, 2024 Dr. Akira Pierre MD Referring Provider Active Start: August 10, 2024 End: August 10, 2024 CAMPOS Morillo Attending Provider Active Start: August 10, 2024 End: August 10, 2024 Team Status: Inactive Member Role Status Dates Dr. Akira Pierre MD Primary Care Provider Active Start: August 12, 2024 End: August 12, 2024 CAMPOS Morillo Attending Provider Active Start: August 12, 2024 End: August 12, 2024 CAMPOS Morillo Referring Provider Active Start: August 12, 2024 End: August 12, 2024 Team Status: Inactive Member Role Status Dates Dr. Akira Pierre MD Primary Care Provider Active Start: August 25, 2024 End: August 25, 2024 CAMPOS Morillo Attending Provider Active Start: August 25, 2024 End: August 25, 2024 CAMPOS Morillo Referring Provider Active Start: August 25, 2024 End: August 25, 2024 Scheduled Active and Recently Administ ered Medications (unrecognized section and content) Medication Order 10/05/2021 10/06/2021 10/07/2021 acetaminophen 1,000 mg tab(s) (TYLENOL) (COMPLETED) 1,000 mg, ORAL, ONCE, 1 dose, On Thu10/07/21 at 0700, If ordered PRN for pain, patient/guardian may elect to receive this medication for higher pain levels INSTEAD of the opioid, if preferred: Yes 0822 (Given - Provid er: Estelle Siegel RN) scopolamine - REMOVE PATCH(Linked Group 1) EVERY 72 HOURS, THIS IS USED ONLY TO DOCUMENT PATCH REMOVAL. Use Remvd Patch action. scopolamine - VERIFY patch(Linked Group 1) EVERY 8 HOURS, THIS IS USED ONLY TO DOCUMENT THAT THE PATCH IS VERIFIED ON OR OFF PER ORDER. Use Patch On or Patch Off action. 1500 (Due) scopolamine 1 mg over 3 days 1 Patch (TRANSDERM-SCOP)(Linked Group 1) 1 Patch, TRANSDERMAL, EVERY 72 HOURS, First dose on Thu10/07/21 at 0700, Until Discontinued, Apply patch behind ear. Each time a new patch is needed it should be placed behind the alternate ear from the previous patch. Remove old patch. Each 1.5 mg patch delivers 1 mg of scopolamine over 3 days. 0822 (Given - Provid er: Estelle Siegel RN) Continuous Medication Order 10/05/2021 10/06/2021 10/07/2021 lactated ringers iv infusion (CANCELED) 5-30 mL/hr, INTRAVENOUS, CONTINUOUS, Starting on Thu10/07/21 at 0700, Until Thu10/07/21 at 1017, Preprocedure 0822 (New Bag/Syring e/Bottle - Provider: Estelle Siegel RN)0837 (Continued by Anesthesia - Provider: Anton Gomez APRN.CRNA)1003 (Stopped - Provider: Anton Gomez APRN.CRNA - Comment: Switch to gravity)1004 (Restarted - Provider: Anton Gomez APRN.CRNA)1017 (Due: Infusion Complete)1023 (Infusion Complete - Provider: Lester Henderson MD) lactated ringers iv infusion 5-30 mL/hr, INTRAVENOUS, CONTINUOUS, Starting on Thu10/07/21 at 1100, Until Thu10/08/21 at 0303 1020 (Rate Verify - Provider: Janett Wise RN) PRN Medication Order 10/05/2021 10/06/2021 10/07/2021 bupivacaine (PF) 0.25 % (2.5 mg/mL) injection (SENSORCAINE MPF) (CANCELED) X (OR/PROCEDURE) PRN, Starting on Thu10/07/21 at 0956, Until Thu10/07/21 at 1026, Intraprocedure 0956 (Given - Provid er: Amaya Bravo, DO - Comment: right axilla)0957 (Given - Provider: Amaya Bravo, DO - Comment: right breast) fentaNYL 50 mcg/mL 25 mcg injection (SUBLIMAZE) 25 mcg, INTRAVENOUS, NEEDED, Starting on Thu10/07/21 at 1039, Until Thu10/08/21 at 0303, FIRST LINE THERAPY for moderate or severe pain, FIRST LINE THERAPY Every 10 minutes, To a Maximum Total Dose of 100 mcg Hold for respiratory rate less than 10 USE FOR MODERATE PAIN ONLY IF PATIENT IS UNABLE TO TOLERATE ORAL THERAPY 1105 (Given - Provid er: Janett Wise RN) isosulfan blue 1 % injection (LYMPHAZURIN) (CANCELED) X (OR/PROCEDURE) PRN, Starting on Thu10/07/21 at 0847, Until Thu10/07/21 at 1026, Intraprocedure 0847 (Given - Provid er: Amaya Bravo, DO - Comment: local infiltration right breast) metoclopramide HCl 10 mg injection (REGLAN) 10 mg, INTRAVENOUS, NEEDED, 1 dose, Starting on Thu10/07/21 at 1039, Until Thu10/08/21 at 0303, Nausea/Vomiting - Second Line - Parenteral NaCl 0.9% irrigation solution (CANCELED) X (OR/PROCEDURE) PRN, Starting on Thu10/07/21 at 0954, Until Thu10/07/21 at 1026, Intraprocedure 0954 (Given - Provid er: Amaya Bravo, DO - Comment: right breast) ondansetron (PF) 4 mg injection (ZOFRAN) 4 mg, INTRAVENOUS, NEEDED, 1 dose, Starting on Thu10/07/21 at 1039, Until Thu10/08/21 at 0303, Nausea/Vomiting - First Line - Parenteral, Give IV push over 2 minutes oxyCODONE IR 5 mg tab(s) (ROXICODONE) (COMPLETED) 5 mg, ORAL, NEEDED, 1 dose, Starting on Thu10/07/21 at 1039, Until Thu10/07/21 at 1143, Moderate Pain (4-6) - Enteral 1143 (Given - Provid er: Janett Wise RN) Linked Groups Order Group 1: scopolamine 1 mg over 3 days 1 Patch (TRANSDERM-SCOP)Jump to med 1 Patch, TRANSDERMAL, EVERY 72 HOURS, First dose on Thu10/07/21 at 0700, Until Discontinued
Apply patch behind ear. Each time a new patch is needed it should be placed behind the alternate ear from the previous patch. Remove old patch. Each 1.5 mg patch delivers 1 mg of scopolamine over 3 days.
And scopolamine - REMOVE PATCHJump to med EVERY 72 HOURS
THIS IS USED ONLY TO DOCUMENT PATCH REMOVAL. Use Remvd Patch action.
And scopolamine - VERIFY patchJump to med EVERY 8 HOURS
THIS IS USED ONLY TO DOCUMENT THAT THE PATCH IS VERIFIED ON OR OFF PER ORDER. Use Patch On or Patch Off action.
Goals (unrecognized section and content) Goals may be documented in a n alternate sectionGoals may be documented in an alternate sectionGoals may be documented in an alternate sectionGoals may be documented in an alternate sectionGoals may be documented in an alternate sectionGoals may be documented in an alternate section FOR RECORDS PERTAINING TO PATIENTS WHO ARE OR HAVE BEEN ENROLLED IN A CHEMICAL DEPENDENCY/SUBSTANCEABUSE PROGRAM, SOME INFORMATION MAY BE OMITTED. This clinical summary was aggregated from multiple sources. Caution should be exercised in using it in the provision of clinical care. This summary normalizes information from multiple sources, and as a consequence, information in this document may materially change the coding, format and clinical context of patient data. In addition, data may be omitted in some cases. CLINICAL DECISIONS SHOULD BE BASED ON THE PRIMARY CLINICAL RECORDS. [employer] provides no warranty or guarantee of the accuracy or completeness of information in this document.
--- OUTSIDE RECORDS SUMMARY | 2024-09-30 05:46 | XMS RPT_ITS | CCD ---
Author Organization [facility] CliniSyla Care Team Providers Care Bank Advisor Name Role Phone Akira Pierre MD Primary [...] Akira Pierre MD Primary Care Provider Matias INFORMATICS NURSE.ACTUARIAL ASSOCIATE, Celeste Unavailable Zoë INFORMATICS NURSE.RESIDENTIAL SALES REPRESENTATIVE, Kimber Unavailable Zoë INFORMATICS NURSE.RESIDENTIAL SALES REPRESENTATIVE, Kimber Unavailable STEPHANIE CRAWFORD Attending Unavailable STEPHANIE [...] TALAMPAS, AKIRA D Primary Care Unavailable Zoë INFORMATICS NURSE.RESIDENTIAL SALES REPRESENTATIVE, Kimber Unavailable Vaishnavi CONWAY, Dr. Akira Chapman Primary Care Provider [phone] Dr. Akira Pierre MD Referring Provider Kumar MYSTERY SHOPPER-C, Maria De Jesus Attending Provider Kumar MYSTERY SHOPPER-C, Maria De Jesus Referring Provider Maria De [...] acid Drug Allergy 3 Other: See Comments [facility] (20 sources) zoledronic acid; Translations: [ZOLEDRONIC ACID] Drug Allergy 3 Other: See Comments [facility] (1 source) zoledronic acid Drug Allergy 5 [facility] Repository Medications Current Medications Medication Drug Class(es) [...] on above: Take 1 capsule by [facility] three times daily for 10 days. cyclobenzaprine [...] Start: 3 Fluticasone Propionate (Flonase) 50 mcg/actuation Wagner,Suspension Active 2 NMA INTRANASAL DAILY May 06, 2022 1:00am Start: 05-06-2022 Fluticasone Pr opionate (Flonase) 50 mcg/actuation Wagner,Suspension Active 2 SPRAY INTRANASAL DAILY May 06, [...] Comment on above: Take 1 capsule by [facility] once daily. TAKE 1 CAPSULE BY [facility] ONCE DAILY Completed/Discontinued Medications Medication Drug Class(es) [...] Comment on above: Take [address] [facility] twice daily. Take once daily [...] Comment on above: Take [address] [facility] twice daily as needed. TAKE [...] Comment on above: Take [address] [facility] twice daily for 10 days. [...] current use of drug therapy; Translations: [Other senior living (current) drug therapy] 11-24-2023 Episodic Other endocrine [...] (20 sources) Patient encounter status; Translations: [Other senior living (current) drug therapy] Onset: 09-27-2021 Episodic Other aftercare (1 source) Other senior living (current) drug therapy; Translations: [Encounter for long-term [...] By: Benito Hutton on 08-27-2024 Study report [facility] Imaging Services [address] [place] [address] MRI Abd WITH and W/O Contrast MR#: [id number] Acct: [id number] Name: REBECA WILSON Rep #: [id number] : 1965 F 59 From: Pet er Peer DO PCP: Dr. Akira Pierre MD Status: RE G CLI Study:MRI Abd WITH and W/O Contrast Date of E xam: 08/25/24 Exam# [id number] Ordering Dr: Maria De Jesus Heath PROCEDURE: [...] lesion. Benign left adrenal adenoma. Reading Location: [facility] CC: CAMPOS Heath; Dr. Akira Pierre MD ~ Group Account Director: Signed [facility] MRI Abd WITH and W/O Contras ton 08-25-2024 MRI Abd WITH and W/O Contrast [facility] Imaging Services [address] [place] [address] MRI Abd WITH and W/O Contrast MR#: [id number] Acct: [id number] Name: REBECA WILSON Rep #: [id number] : 1965 F 59 From: Benito Hutton DO PCP: Dr. Akira Pierre MD Status: DEP CLI Study: MRI Abd WITH and W/O Contrast Date of Exam: Exam# [id number] Ordering Dr: Maria De Jesus Heath ADDENDUM by Dr. Benito Hutton DO on 09/13/24 at 1932 For further clarification the contrast for the postcontrast images was 19 mL Clariscan IV. Reading Location: [facility] 09/13/241931 Date cc: CAMPOS Heath; Dr. Akira Pierre MD * Signed ADDENDUM by Dr. Benito Hutton DO on 09/01/24 at 1152 The technique slices is below TECHNIQUE: Addendum is created to address discrepancy in contrast dose MRI ABD WITH AND W/O CONTRAST Multiplanar and multisequence images were obtained. CONTRAST: Clariscan VOLUME: 19 becausemL Reading Location: [facility] 09/01/241152 Date cc: CAMPOS Heath; Dr. Akira [...] lesion. Benign left adrenal adenoma. [facility] CC: CAMPOS Heath; Dr. Akira Pierre MD Group Account Director: Signed Normal [facility] Abdomen Limitedon 08-12-2024 Abdomen Limited [facility] Imaging Services [address] [place] [address] Abdomen Limited MR#: [id number] Acct: [id number] Name: REBECA WILSON Rep #: [id number] : 1965 F 59 From: Paresh Goldberg MD PCP: Dr. Akira Pierre MD Status: REG CLI Study: Abdomen Limited Date of Exam: 08/12/24 Exam# [id number] Ordering Dr: Maria De Jesus Heath PROCEDURE: [...] 2. Hepatic steatosis and hepatomegaly. Reading [id number] CC: CAMPOS Heath; Dr. Akira Pierre MD Group Account Director: Signed Normal [facility] Gastroenterology Visit Repor ton 08-10-2024 Gastroenterology Visit Report [facility] Gastroenterology [address] [place] [place] [address] OFFICE VISIT Date of Service: 08/10/24 MR#: [id number] Acct: [id number] Name: REBECA WILSON Rep #: [id number] : 1965 Provider: CAMPOS solo Age/Sex: 59/F Location: [facility] Status: Signed Intake Vital Signs 05/06/22 11:51 [...] colonoscopy as well and will schedule. Note: Redeemr speech recognition technical communication teacher software was used to create portions of this document. Sound-alike and misspelled words, as well as other technical communication teacher errors may be contained in the documentation. Patient Instructions: ABD US - [phone] to schedule Magnesium Citrate gel caps 250mg [...] smoker 08/10/24 (more content not included)... Normal [facility] CNNURSEon 05-23-2024 CNNURSE Nurse Visit (LEANDRO) REBECA WILSON ([id number]) 1965 F Date Time Provider Department 05/23/24 YENNY POSADAS During your visit today, we recorded the following information about you: Yenny Posadas RN 05/23/2024 10:45 AM Signed IRB# [id number] Title: [facility] BR007: A Phase III Clinical Trial Evaluating De-Escalation of Breast Radiation for Conservative Treatment of Stage I, Hormone Sensitive, Her2-Negative, Oncotype Recurrence Score <= 18 Breast Cancer. Participant Information: Informed Consent Signed 11/18/2021 Registered: 11/18/2021 Randomization Date: 11/18/2021 Treatment Arm: HT - TA2 Study ID [id number] Consent to optional samples Yes Staging/Diagnosis pT1b pN0(sn) M0 ER/NH positive, HER2 negative stage IA Study Status Follow Up Current Treatment Plan: Treatment Dose Start Date Frequency End date exemestane (AROMASIN) 25/mg 11/25/2021 Daily Clinical Trial Specific Testing Test Dates Completed Due Date Mammogram Scan 04/22/202404/2025 Clinical Trial Draw 11/17/202211/2024 Year 3 QOLs 11/2023 QOLS were completed in aguilar via [facility]/Remoov 11/2024 Baseline Weight 89.8 (11/15/2021) 95.7 Creatinine [...] On-Call number for the On-Call Oncology Fellow ([phone]). JEREMY BondN, RN Clinical Research Nurse [phone] Allergies As of Date: 05/23/2024 Note (more content not included)... Normal [facility] CNOVSPon 05-23-2024 CNOVSP Visit (SP) Office (LEANDRO) REBECA WILSON ([id number]) 1965 F Date Time Provider Department 05/23/24 8:30 AM STEPHANIE CRAWFORD During your visit today, we recorded the following information about you: Temperature Pulse Blood pressure Weight 99.2 degrees 82/minute 144/86 95.7 kg Stephanie Crawford INFORMATICS NURSENORMA 05/24/2024 12:22 PM Signed Chief Complaint Patient [...] ER +91 to 100%, strong staining intensity. NH positive, 81 to 90%, strong staining intensity HER2 negative, 1+ on IHC. Patient underwent a right breast GREGORY Oncology Account Specialist localized lumpectomy, right sentinel lymph node mapping and biopsy on 10/07/2021. Pathology: A. Right axilla, sentinel lymph nodes, excision: -Two lymph nodes, negative for metastatic carcinoma (0/2), (please see comment). B. Right breast, lumpectomy: - Invasive mammary carcinoma with mixed ductal and lobular features, Chilton grade 2, measuring 7 mm in greatest dimension, (please see comment and synoptic report). 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 Per Dr. Zavaleta's previous note: Assessment: -The patient is a 58-year- (more content not included)... Normal [facility] CNPNon 05-23-2024 CNPN Telephone (LEANDRO) REBECA WILSON ([id number]) 1965 F Date Time Provider Department 05/23/24 [...] Date Reviewed: 05/23/2024 Reviewed by: Stephanie Crawford APRN.RESIDENTIAL SALES REPRESENTATIVE - Fully Assessed Prescriptions as of 05/23/2024 [...] Status:Closed by YENNY POSADAS on 05/23/24 Normal [facility] DBT Breast - bilateral scree nabila [...] Yolanda Lund M.D. Electronically signed on: 04/22/2024 Group Account Director: BETH Transcribe Date/Time: Apr 22 2024 7:08A Dictated by: YOLANDA LUND MD This examination was interpreted and the report reviewed and electronically signed by: YOLANDA LUND MD on Apr 22 2024 10:11PM [facility] DIVISION OF RADIOLOGY * * *Final Report* * * DATE OF EXAM: Apr 22 2024 7:20AM [facility] 0582 - [facility] SCREENING W YANE / PROCEDURE REASON: multiple diagnoses * * * * Physician Interpretation * * * * RESULT: [facility] [address] [place] [address] #[id number] - [facility] SCREENING W YANE HISTORY: 58 year-old patient [...] in either breast. DIVISION OF RADIOLOGY Provider, [facility] - 04/22/2024 * * *Final Report* * * DATE OF EXAM: Apr 22 2024 7:20AM [facility] 0582 - [facility] SCREENING W YANE / PROCEDURE REASON: multiple diagnoses * * * * Physician Interpretation * * * * RESULT: [facility] [address] [place] [address] #[id number] - [facility] SCREENING W YANE HISTORY: 58 year-old patient [...] Yolanda Lund M.D. Electronically signed on: 04/22/2024 Group Account Director: BETH Transcrilexus Date/Time: Apr 22 2024 7:08A Dictated by: YOLANDA LUND MD This examination was interpreted and the report reviewed and electronically signed by: YOLANDA LUND MD on Apr 22 2024 10:11PM EST [facility] Radiology Study observation (narrative) [facility] DBT Breast - bilateral scree ningOrdered By: Ccf Provider on 04-22-2024 [facility] HARSH SCREENING W TOMOon 04-22 [facility] SCREENING W YANE * * *Final Report* * * DATE OF EXAM: Apr 22 2024 7:20AM [facility] 0582 - HARSH SCREENING W YANE / PROCEDURE REASON: multiple diagnoses * * * * Physician Interpretation * * * * RESULT: [place] [address] [place] [id number] #[id number] - [facility] SCREENING W YANE HISTORY: 58 [...] Yolanda Lund M.D. Electronically signed on: 04/22/2024 Group Account Director: BETH Transcribe Date/Time: Apr 22 2024 7:08A Dictated by: YOLANDA LUND MD This examination was interpreted and the report reviewed and electronically signed by: YOLANDA LUND MD on Apr 22 2024 10:11PM EST [id number] Normal [facility] CNOVon 01-12-2024 CNOV Office Visit (INTMWS ) REBECA WILSON ([id number]) 1965 F Date Time Provider Department 01/12/24 5:00 PM AKIRA PIERRE INTMWS During your visit today, we recorded the following information about you: Temperature Pulse Respiration Blood pressure 98.9 degrees 83/minute 16/minute 126/82 Weight Height 95.9 kg 1.67 m Akira Pierre MD 01/12/2024 5:40 PM Signed This note was created using SyCara Localriter. Subjective Rebeca Wilson is a 58 year [...] She also takes omeprazole, which she obtains qgzu-lsa-pfhaezk, for GERD management. Additionally, she uses Flonase, also aeex-ylz-lutvjqp, for year-round dog allergies. She is under [...] Wt Readings: (more content not included)... Normal [facility] Mumps Antibody,IgGon 024 MUMPS Ab, IgG < 9.0 Low Immune >10.9 [facility] Comment on above: Result Comment: Nega tive <9.0 Equivocal 9.0 - 10.9 Positive >10.9 A positive result generally indicates past exposure to Mumps virus or previous vaccination. Performed By: #### L 3100.0539, L3100.3400, L509.4015, L3400.1750 #### [facility] [address] [place], [address] [facility] EMP Rubeola Titeron 11-08 RUBEOLA Ab, IgG 54.3 AU/mL Normal Immune >16.4 [facility] Comment on above: Result Comment: Nega tive <13.5 Equivocal 13.5 - 16.4 Positive >16.4 Presence of antibodies to Rubeola is presumptive evidence of immunity except when acute infection is suspected. Performed at: [address] [id number] Cigarette Examiner: Sunny Jarrell PhD, Phone: [phone] Performed By: #### L 3100.0539, L3100.3400, L509.4015, L3400.1750 #### [facility] [address] [place], [address] Hepatitis B Surf AB - EMPon 12-01-2023 HEP B Surf Ab Reactive Normal [facility] Comment on above: Result Comment: Non Reactive: Inconsistent with immunity less than <10 mIU/mL Reactive: Consistent with immunity greater than or equal to 10 mIU/mL Performed By: #### L 3100.0539, L3100.3400, L509.4015, L3400.1750 #### [facility] [address] [place], [address] Rubella IgG [facility] EMPLOYEEon 0 12-01-2023 Rubella IgG Reactive Normal Nonreactive [facility] Comment on above: Result Comment: Anti body Results Interpretation of Immune Status Non Reactive Presumed Non-Immune Equivocal Equivocal Reactive Presumed Immune Performed By: #### L 3100.0539, L3100.3400, L509.4015, L3400.1750 #### [facility] [address] [place], [address] CNNURSEon 11-24-2023 CNNURSE Nurse Visit (LEANDRO) REBECA WILSON ([id number]) 1965 F Date Time Provider Department 11/24/23 [...] Treatment Arm: HT - TA2 Study ID [id number] Consent to optional samples Yes Staging/Diagnosis pT1b pN0(sn) M0 ER/NH positive, HER2 negative stage IA Study Status Follow Up Current Treatment Plan: Treatment Dose Start Date Frequency End date exemestane (AROMASIN) 25/mg 11/25/2021 Daily Clinical Trial Specific Testing Test Dates Completed Due Date Mammogram Scan 04/23/202304/2024 Clinical Trial Draw 11/17/202211/2024 Year 3 QOLs 11/2023 QOLS were completed in aguilar via [facility] 11/2024 Baseline Weight 89.8 (11/15/2021) 95.5 Creatinine [...] Byrd and (more content not included)... Normal [facility] CNOVSPon 11-24-2023 CNOVSP Visit (SP) Office (LEANDRO) REBECA WILSON ([id number]) 1965 F Date Time Provider Department 11/24/23 [...] ER +91 to 100%, strong staining intensity. NH positive, 81 to 90%, strong staining intensity HER2 negative, 1+ on IHC. Patient underwent a right breast GREGORY Oncology Account Specialist localized lumpectomy, right sentinel lymph node mapping and biopsy on 10/07/2021. Pathology: A. Right axilla, sentinel lymph nodes, excision: -Two lymph nodes, negative for metastatic carcinoma (0/2), (please see comment). B. Right breast, lumpectomy: - Invasive mammary carcinoma with mixed ductal and lobular features, Chilton grade 2, measuring 7 mm in greatest dimension, (please see comment and synoptic report). 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 2. Examination of participant in clinical trial - ICD9: V70.7, ICD10: Z00.[address] Zavaleta's previous note: Assessment: -The patient is a 58-year-old postmenopausal female ( (more content not included)... Normal [facility] CNPNon 08-26-2023 CNPN Telephone ([employer]) REBECA WILSON ([id number]) 1965 F Date Time Provider Department 08/26/23 [...] Encounter Status:Closed by AMAYA LAUREANO on 08/31/23 [facility] CNOVSPon 08-24-2023 CNOVSP Visit (SP) Office ([facility]) REBECA WILSON ([id number]) 1965 F Date Time Provider Department 08/24/23 3:50 PM NAHUN ZAVALETA HEMAWS During your visit today, we recorded the following information about you: Temperature Pulse Blood pressure Weight 98.4 degrees 71/minute 117/79 96.2 kg Nahun Zavaleta, 08/24/2023 4:23 PM Signed Oncologic problem(s): 1) pT1b pN0(sn) M0 ER/NH positive, HER2 negative stage IA infiltrating ductal [...] ER +91 to 100%, strong staining intensity. NH positive, 81 to 90%, strong staining intensity HER2 negative, 1+ on IHC. Patient underwent a right breast GREGORY Oncology Account Specialist localized lumpectomy, right sentinel lymph node mapping [...] Biopsy site changes, biopsy clip, and GREGORY coin dealer identified - The surrounding breast parenchyma shows [...] as well. 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 [...] normal in (more content not included)... Normal [facility] T4 Free SerPl-mCncon 024 Free T4 [Mass/Vol] 1.1 ng/dL Normal 0.9-1.7 [facility] Comment on above: Order Comment: Speci men Type: BLOOD SPECIMENOrdering Facility: [facility] Address: [address] [place] [address] Performed By: #### 3 024-7, 30163 ####[facility] LABCLIA [id number] [place] [address] [place] TSH SerPl-aCncon 08-18-2023 TSH Qn 0.480 m[IU]/L Normal 0.270-4.200 [facility] Comment on above: Order Comment: Speci men Type: BLOOD SPECIMENOrdering Facility: [facility] Address: [address] [place] [address] Performed By: #### 3 024-7, 30163 ####[facility] [id number] [place] [address] [place] CNOVon 06-25-2023 CNOV Office Visit (OSVALDO ) REBECA WILSON ([id number]) 1965 F Date Time Provider Department 06/25/23 8:00 AM LANDY SCHNEIDER During your visit today, we recorded the following information about you: Landy Schneider MD 06/26/2023 4:49 AM Signed FOLLOW UP VISIT - HERNIA NAME: Rebeca Wilson CLINIC NO.: [id number] DATE OF SERVICE: 06/25/2023 : 1965 REFERRING PHYSICIAN: Akira Pierre MD Rebeca is a patient I am following for a supraumbilical hernia. I performed a laparoscopic ventral hernia repair with mesh on June 11, 2023. The patient was found to have a 2cm ventral hernia 3cm above the umbilicus and a 1.5cm umbilical hernia. A 12cm [place] mesh was placed with an laparoscopic IPOM [...] Status:Closed by LANDY SCHNEIDER on 06/26/23 Normal [facility] CNPNon 06-16-2023 CNPN Telephone (GENSWS) REBECA WILSON ([id number]) 1965 F Date Time Provider Department 06/16/23 NURSE GENS [facility] GENSWS During your visit today, we recorded the following information about you: Vineet Meier RN 06/16/2023 9:45 AM Signed Type of form: FMLA Form received via walk in When form is completed, Fax form to [phone] Form has been forwarded to Physician Mailbox: VIOLETTE Naik Rhonda, RN 06/16/2023 9:45 AM Signed Form faxed to [facility]. Fax confirmation sheet received. My Chart message sent to Rebeca, advising that the forms had been completed, faxed, and a copy was left at the front end assistant for her. Vineet Meier RN Allergies As of Date: 06/16/2023 Noted Allergy Reaction ZOMETA (ZOLEDRONIC ACID) 05/13/2022 14 - Other: See Comments Comments: Joint tenderness AND soreness, difficulty breathing due to severe pain Date Reviewed: 06/11/2023 Reviewed by: Hollie Eller, VIOLETTE - Fully Assessed Reason for Visit: FMLA Paperwork [4182] Prescriptions as of 06/16/2023 - oxyCODONE-acetaminophe n [...] Status:Closed by VINEET MEIER on 06/16/23 Normal [facility] ANES POSTPROC EVALon 04-04-2 024 ANES POSTPROC EVAL HNO ID: [id number] Author: JOSE E SALINAS MD Service: ? Author Type: Anesthesiologist Type: Anesthesia Postprocedure Evaluation Filed: 06/11/2023 13:07 Note Text: POST ANESTHESIA EVALUATION NOTE : 1965 Procedure Summary Date: 06/11/23 Room / Location: [place] OR01 / [place] Anesthesia Start: 0834 [...] June 11, 2023 TIME: 1:07 PM CSN: [id number] [facility] ANES PRE-OPon 06-11-2023 ANES PRE-OP HNO ID: [id number] Author: JOSE E SALINAS MD Service: ? Author Type: Anesthesiologist Type: Anesthesia Preprocedure Evaluation Filed: 06/11/2023 08:28 Note Text: ANESTHESIOLOGY DAY OF SURGERY NOTE : 1965 Procedure Information Date/Time: 06/11/23 0830 Procedure: LAPAROSCOPIC HERNIORRHAPHY FOR REDUCIBLE VENTRAL LESS THAN 3cm (Abdomen) Location: [place] OR01 / [place] Surgeons: Landy Schneider [...] and consent discussed: yes. Patient / Responsible Democrat agrees to proceed: yes Patient / Surrogate [...] June 11, 2023 TIME: 8:27 AM CSN: [id number] [facility] BRIEF OP NOTon 06-11-2023 BRIEF OP NOT HNO ID: [id number] Author: LANDY SCHNEIDER MD Service: General Surgery Author Type: Physician Type: Brief Op Note Filed: 06/11/2023 10:15 Note Text: BRIEF OPERATIVE NOTATION FOR SURGICAL PROCEDURE. Rebeca Wilson 1965 [id number] female LOG ID: [id number] Surgery/Procedure Date: 06/11/2023 Incision/Procedure Start Time: 8:57 AM Incision Close/Procedure End Time: 9:46AM Surgeon(s)/Procedurali st(s) and Aerospace Engineer Officer Armament(s): Surgeon(s) and Role: * Landy Schneider MD - Primary Physician Aerospace Engineer Officer Armament: Carolyn Trejo PA-C REFERRING PHYSICIAN: Outpatient DEPT: MYKEL PROVIDER: Shalini POS: [id number] ANESTHESIA: General ASA CLASS: 2 - mild DIAGNOSIS: ventral and umbilical hernia PROCEDURE: Initial anterior abdominal hernia repair: 21417 - 3-10 cm incarcerated or strangulated - [...] Implant Name Type Inv. Item Serial No. Barrel Liner Lot No. LRB No. Used Action MESH SURGICAL PARIETENE DS 12CM ROUND - [id number] Mesh MESH SURGICAL PARIETENE DS 12CM ROUND [employer] [id number] N/A 1 Implanted Operative note dictated in the dictation system. - [id number] Landy Schneider MD [facility] HISTORY PHYSICALon HISTORY PHYSICAL HNO ID: [id number] Author: LANDY SCHNEIDER MD Service: General Surgery Author Type: Physician Type: H&P Filed: 06/11/2023 07:12 Note Text: HISTORY AND PHYSICAL Rebeca Wilson 1965 REFERRING PHYSICIAN: Nahun Zavaleta DO CHIEF COMPLAINT: Consult (Epigastric pain) HPI: Rebeca is a 57 year old female with a complaint of what she describes as reflux and epigastric pain symptoms. Patient notes some reflux. She was started on vsqd-yds-mczkwci Prilosec 2 tablets a day and notes improvement in her reflux symptoms. The patient also notes discomfort in her supraumbilical area. She assumed this was her stomach. She does note a tender area in the area of the supraumbilical epigastrium The patient had CT scan performed at [facility]. This demonstrated a very small break in [...] entered by the nurse and reviewed by ak Nursing Notes: Kimi Taalmantes RN 06/02/2023 2:29 PM Addendum REVIEW OF [...] denies short (more content not included)... Normal [facility] OPERATIVE NOon 06-11-2023 OPERATIVE NO HNO ID: [id number] Author: LANDY SCHNEIDER MD Service: General Surgery Author Type: Physician Type: Operative Report Filed: 06/11/2023 14:37 Note Text: [facility] - Operative Report REBECA WILSON : 1965 AGE: 57. SEX: F PATIENT TYPE: A HOSP [facility]: S LOCATION: [facility] ATTENDING PHYSICIAN: Landy Schneider M.D. CSN NUMBER: [id number] DATE OF SURGERY/PROCEDURE: 06/11/2023 INCISION/PROCEDURE START TIME: 8:57 a.m. INCISION CLOSE/PROCEDURE END TIME: 9:46 a.m. PREOPERATIVE DIAGNOSIS: 1.5 to 2 cm ventral hernia approximately 3 cm at the umbilicus. POSTOPERATIVE DIAGNOSIS: 1.5 to 2 cm ventral hernia, 3 cm at the umbilicus and occult umbilical hernia 1.5 cm at the umbilicus. SURGEON: Landy Schneider M.D. ORDER BUILDER: Carolyn Trejo PA-C SURGERY/PROCEDURE: Laparoscopic ventral hernia intraperitoneal onlay mesh repair or initial anterior abdominal hernia repair, 3 to 10 cm incarcerated, strangulated. ANESTHESIA: General endotracheal. LOG ID: [id number] ANESTHESIOLOGIST: Dr. Jara. ANESTHESIA: General endotracheal. ASA: [...] through the port site. A 12 cm [place] Parietene mesh was then marked to have [...] the fascial defect was closed with a [id number] Prolene suture. Additional tacks were placed at [...] stable condition. Carolyn Trejo was my 1st medical assistant secretary. She assisted in visualization, retraction, and subcuticular closure. There were no surgeons or qualified residents available. Landy Schneider M.D. RG:[id number] [facility] SURGICAL PATHOLOGYon 024 CASE REPORT [facility] Comment on above: Order Comment: Speci men Type: TISSUE SPECIMEN Ordering Facility: [facility] Address: [address] [place] [address] [place] [address] Result Comment: Surg [facility] Pathology Report Case: [id number] Authorizing Provider: Landy Schneider MD Collected: 06/11/2023 09:47 AM Ordering Location: [facility] Surgery Received: 06/11/2023 10:24 AM Pathologist: Kandis Moyer MD Specimen: HERNIA SAC, preperitoneal hernia sac Performed By: #### S #### [facility] CLIA [id number] [address] [place] [address] [place] CLINICAL HISTORY Normal [facility] Comment on above: Order Comment: Speci men Type: TISSUE SPECIMEN Ordering Facility: [facility] Address: [address] [place] [address] Result Comment: Pre- op diagnosis: Ventral hernia without obstruction or gangrene [K43.9] Performed By: #### S #### [facility] CLIA [id number] [address] [place] [address] OF [facility] FINAL DIAGNOSIS Normal [facility] Comment on above: Order Comment: Speci men Type: TISSUE SPECIMEN Ordering Facility: [facility] Address: [address] [place] [address] Result Comment: Soft tissue, preperitoneal, herniorrhaphy: - Hernia sac. Performed By: #### S #### [facility] CLIA [id number] [address] [place] [address] OF [place] FINAL PERFORMING LAB Normal [facility] Comment on above: Order Comment: Speci men Type: TISSUE SPECIMEN Ordering Facility: [facility] Address: [address] [place] [address] Result Comment: Diag nostic interpretation performed at [facility], [address] [place] [address] CLIA# [id number] Human Resources Clerk: Elias Hamilton M.D. Performed By: #### S #### [facility] CLIA [id number] [address] [id number] [address] [place] GROSS DESCRIPTION A. HERNIA SAC Normal [facility] Comment on above: Order Comment: Speci men Type: TISSUE SPECIMEN Ordering Facility: [facility] Address: [address] [place] [address] Result Comment: Rece ived in formalin labeled preperitoneal hernia sac is a irregular segment of triana-purple membranous soft tissue with attached yellow-brown lobulated adipose tissue measuring 9.5 x 6.0 x 4.0 cm. Sectioning reveals unremarkable cut surfaces. Breakfast Manager section is submitted in A1. MSL/MLG June 11, 2023 1:33 PM Gross examination performed at [facility], [address] [place] [address], [place] [address] CLIA# [id number] Performed By: #### S #### [facility] CLIA [id number] [address] [place] [address] CNPOlga 06-09-2023 CNPN Telephone (WavemarkE) REBECA WILSON ([id number]) 1965 F Date Time Provider Department 06/09/23 [...] Encounter Status:Closed by MARY MOSES on 06/10/23 [facility] 06-03-2023 CNPN Telephone (PREANME) REBECA WILSON ([id number]) 1965 F Date Time Provider Department 06/03/23 [...] Encounter Status:Closed by VARSHA REYES on 06/03/23 [facility] Office Visit (GENSWS ) REBECA WILSON ([id number]) 1965 F Date Time Provider Department 06/02/23 [...] notes some reflux. She was started on szmt-uff-eqtxhez Prilosec 2 tablets a day and notes improvement in her reflux symptoms. The patient also notes discomfort in her supraumbilical area. She assumed this was her stomach. She does note a tender area in the area of the supraumbilical epigastrium The patient had CT scan performed at [facility]. This demonstrated a very small break in [...] venlafaxine ER (more content not included)... Normal [facility] 06-02-2023 [facility] Telephone (wmbly) REBECA WILSON ([id number]) 1965 F Date Time Provider Department 06/02/23 LANDY SCHNEIDER [facility] During your visit today, we recorded the [...] Encounter Status:Closed by JOSE BERGMAN [facility] (LEANDRO) REBECA WILSON ([id number]) 1965 F Date Time Provider Department 05/27/23 [...] Fully Assessed Reason for Visit: Patient Question [0007] Prescriptions as of 05/27/2023 - exemestane (AROMASIN) [...] Status:Closed by YENNY POSADAS on 05/27/23 Normal [facility] DBT Breast - bilateral scree ningon 04-23-2023 [facility] US THYROID/PARATHYROIDon [facility] THYROID STIMULATING IMMUNOGL OBULIN BLOODon 08-20-2022 Thyroid stimulating immunoglobulins actual/normal (S) [Relative mass conc] <0.55 IU/L [facility] TSI Qualitative Negative Negative [facility] T3 FREE BLDon 08-19-2022 Free T3 [Mass/Vol] 3.4 pg/mL 2.3 - 4.1 pg/mL [facility] T4 FREE/FREE THYROXon 2022 Free T4 [Mass/Vol] 1.2 ng/dL 0.9 - 1.7 ng/dL [facility] TSH BLDon 08-19-2022 TSH Qn 0.057 m[IU]/L Low 0.270 - 4.200 mIU/L [facility] NM THY UPTAKE AND SCANon NM [...] on 09/03/2022 12:42 PM via verbal communication. Group Account Director: PSCB Transcribe Date/Time: Sep 03 2022 12:40P Dictated by : PAM HOGAN MD This examination was interpreted and the report reviewed and electronically signed by: PAM HOGAN MD on Aug 06 2022 10:38PM EST This document has been addended by: PAM HOGAN MD on Sep 03 2022 12:42PM EST [id number] Normal [facility] US THYROID/PARATHYROIDon [facility] CBC W Auto Differential pane l (Bld)on 06-20-2022 Basophils (Bld) [#/Vol] 0.05 10*3/uL <0.11 k/uL [facility] Basophils/100 WBC (Bld) 0.7 % [facility] Differential cell count method Nom (Bld) Auto [facility] Eosinophils (Bld) [#/Vol] 0.15 10*3/uL <0.46 k/uL [facility] Eosinophils/100 WBC (Bld) 2.2 % [facility] Erythrocyte distribution width (RBC) [Ratio] 12.8 % 11.5 - 15.0 % [facility] Hematocrit (Bld) [Volume fraction] 40.1 % 36.0 - 46.0 % [facility] Hemoglobin (Bld) [Mass/Vol] 12.9 g/dL 11.5 - 15.5 g/dL [facility] Immature granulocytes (Bld) [#/Vol] 0.08 10*3/uL <0.10 k/uL [facility] Immature granulocytes/100 WBC (Bld) 1.2 % [facility] Lymphocytes (Bld) [#/Vol] 2.59 10*3/uL 1.00 - 4.00 k/uL [facility] Lymphocytes/100 WBC (Bld) 38.4 % [facility] MCH (RBC) [Entitic mass] 29.6 pg 26.0 - 34.0 pg [facility] MCHC (RBC) [Mass/Vol] 32.2 g/dL 30.5 - 36.0 g/dL [facility] MCV (RBC) [Entitic vol] 92.0 fL 80.0 - 100.0 fL [facility] Monocytes (Bld) [#/Vol] 0.44 10*3/uL <0.87 k/uL [facility] Monocytes/100 WBC (Bld) 6.5 % [facility] Neutrophils (Bld) [#/Vol] 3.43 10*3/uL 1.45 - 7.50 k/uL [facility] Neutrophils/100 WBC (Bld) 51.0 % [facility] Nucleated RBC (Bld) [#/Vol] <0.01 k/uL [facility] Nucleated RBC/100 WBC (Bld) [Ratio] 0.0 /100 WBC [facility] Platelet mean volume (Bld) [Entitic vol] 9.5 fL 9.0 - 12.7 fL [facility] Platelets (Bld) [#/Vol] 510 10*3/uL High 150 - 400 k/uL [facility] RBC (Bld) [#/Vol] 4.36 10*6/uL 3.90 - 5.2 0 m/uL [facility] WBC (Bld) [#/Vol] 6.74 10*3/uL 3.70 - 11. 00 k/uL [facility] Comprehensive metabolic 2000 panelon 06-20-2022 Albumin [Mass/Vol] 4.4 g/dL 3.9 - 4.9 g/dL [facility] ALP [Catalytic activity/Vol] 66 U/L 34 - 123 U/L [facility] ALT [Catalytic activity/Vol] 22 U/L 7 - 38 U/L [facility] Anion gap [Moles/Vol] 10 mmol/L 9 - 18 mmol/L [facility] AST [Catalytic activity/Vol] 19 U/L 13 - 35 U/L [facility] Bilirubin [Mass/Vol] 0.4 mg/dL 0.2 - 1 .3 mg/dL [facility] Calcium [Mass/Vol] 9.6 mg/dL 8.5 - 10. 2 mg/dL [facility] Chloride [Moles/Vol] 102 mmol/L 97 - 10 5 mmol/L [facility] CO2 [Moles/Vol] 28 mmol/L 22 - 30 mmol/L [facility] Creatinine [Mass/Vol] 0.74 mg/dL 0.58 - 0.96 mg/dL [facility] Estimated Glomerular Filtration Rate 95 mL/min/1.73m >=60 mL/min/1.73m [facility] Glucose [Mass/Vol] 99 mg/dL 74 - 99 mg/dL [facility] Potassium [Moles/Vol] 4.2 mmol/L 3.7 - 5.1 mmol/L [facility] Protein [Mass/Vol] 7.5 g/dL 6.3 - 8.0 g/dL Cl [facility] Sodium [Moles/Vol] 140 mmol/L 136 - 144 mmol/L [facility] Urea nitrogen [Mass/Vol] 20 mg/dL 7 - 21 mg/dL [facility] TSH BLDon 06-20-2022 TSH Qn 0.051 m[IU]/L Low 0.270 - 4.200 mIU/L [facility] Absolute lymphocyte countOrd ered By: Dr. Flanagan on 05-06-2022 Lymphocytes Auto (Unsp spec) [#/Vol] 0.34 10*3/uL 0.83-4.51 [facility] Basophil percentageOrdered B y: Dr. Flanagan on 05-06-2022 Basophils/100 WBC (Bld) 0.1 % 0-1 [facility] Chloride [Moles/Vol] 109 mmol/L 98-107 [facility] Eosinophils/100 WBC (Bld) 0.0 % 0-5 [facility] Glucose [Mass/Vol] 129 mg/dL 74-106 [facility] Comment on above: Fasting Glucose resu lt greater than or equal to 126 mg/dL suggests DIABETES MELLITUS per A.D.A. criteria. Neutrophils (Bld) [#/Vol] 16.7 10*3/uL 2.0-7.7 [facility] Neutrophils/100 WBC (Bld) 95.6 % 47-70 [facility] Potassium [Moles/Vol] 3.6 mmol/L 3.5-5.1 [facility] Sodium [Moles/Vol] 142 mmol/L 136-145 [facility] WBC (Bld) [#/Vol] 17.5 10*3/uL 4.4-11.0 [facility] Blood erythrocytes count (nu mber/volume)Ordered By: Dr. Flanagan on 05-06-2022 RBC (Bld) [#/Vol] 3.78 10*6/uL 4.2-5.4 [facility] Blood hemoglobin measurement (mass/volume)Ordered By: Dr. Flanagan on 05-06-2022 Hemoglobin (Bld) [Mass/Vol] 11.2 g/dL 12.0-15.0 [facility] Blood lymphocytes/100 leukoc ytesOrdered By: Dr. Flanagan on 05-06-2022 Lymphocytes/100 WBC (Bld) 1.9 % 19-41 [facility] Blood manual differential co mment interpretation (narrative result)Ordered By: Dr. Flanagan on 05-06-2022 Manual differential comment Riki (Bld) [Interp] SCANNED [facility] Blood monocytes/100 leukocyt esOrdered By: Dr. Flaangan on 05-06-2022 Monocytes/100 WBC (Bld) 1.8 % 0-10 [facility] Blood platelet mean volumeOr dered By: Dr. Flanagan on 05-06-2022 Platelet mean volume (Bld) [Entitic vol] 9.0 fL 6.2-12.0 [facility] Determination of erythrocyte mean corpuscular volume (MCV)Ordered By: Dr. Flanagan on 05-06-2022 MCV (RBC) [Entitic vol] 92.6 fL 81-99 [facility] Hematocrit Auto (Bld) [Volum e fraction]Ordered By: Dr. Flanagan on 05-06-2022 Hematocrit (Bld) [Volume fraction] 35.0 % 37-47 [facility] Laboratory - Chemistry and C hemistry - challengeOrdered By: Dr. Flanagan on 05-06-2022 CO2 [Moles/Vol] 25.0 mmol/L 21.0-32.0 [facility] Urea nitrogen/Creatinine [Mass ratio] 21.1 mg/mg 10-20 [facility] Laboratory - Hematology and Cell countsOrdered By: Dr. Flanagan on 05-06-2022 Erythrocyte distribution width (RBC) [Entitic vol] 43.4 fL 35.1-43.9 [facility] Erythrocyte distribution width (RBC) [Ratio] 12.8 % 11.6-14.6 [facility] Immature granulocytes/100 WBC (Bld) 0.600 % 0.0-0.9 [facility] Comment on above: IG% - Immature Granu locytes (promyelocytes, myelocytes and metamyelocytes) > 1% indicates that a LEFT SHIFT is Present. MCH (RBC) [Entitic mass] 29.6 pg 27.0-32.0 [facility] Nucleated RBC/100 WBC (Bld) [Ratio] 0 % 0-5 [facility] MCHC Auto (RBC) [Mass/Vol]Or dered By: Dr. Flanagan on 05-06-2022 MCHC (RBC) [Mass/Vol] 32.0 g/dL 32-36 [facility] No Panel InformationOrdered By: Dr. Flanagan on 05-06-2022 Estimated Creatinine Clearance Calc 65.34 ml/min [facility] Estimated GFR (MDRD) Amer 83 mL/min >60 [facility] Comment on above: GFR Calc Estimated GFR (MDRD) Non-Af Amer 69 mL/min >60 [facility] Comment on above: Non- GFR Calc Troponin I High Sensitivity 4 pg/mL 3.0-54.0 [facility] Comment on above: Please Note: New Marcio t Units and Gender Specific Reference Ranges. For more information see Policy Stat Procedure [place]aring High Sensitivity Troponin (TNIH) and attachments. Platelets bldOrdered By: Dr. Flanagan on 05-06-2022 Platelets (Bld) [#/Vol] 369 10*3/uL 150-450 [facility] Serum or plasma calcium fawad urement (mass/volume)Ordered By: Dr. Flanagan on 05-06-2022 Calcium [Mass/Vol] 8.3 mg/dL 8.5-10.1 [facility] Serum or plasma creatinine m easurement (mass/volume)Ordered By: Dr. Flanagan on 05-06-2022 Creatinine [Mass/Vol] 0.90 mg/dL 0.55-1.02 [facility] Comment on above: The validity of the calculated GFR & GFRAA in patients over 70 years has not been determined. Clinical correlation is essential. Serum or plasma urea nitroge n measurement (mass/volume)Ordered By: Dr. Flanagan on 05-06-2022 Urea nitrogen [Mass/Vol] 19 mg/dL 7-18 [facility] Thin prep Papanicolaou smear with manual screeningOrdered By: Dr. Flanagan on 05-06-2022 Thin prep Papanicolaou smear with manual screening 8 5-15 [facility] US Breast - right limitedon 04-25-2022 IMPRESSION: BENIGN FINDING There is no sonographic evidence of malignancy. The 1 cm x 0.2 cm x 1.3 cm normal right axillary lymph node is benign. Return to annual mammogram screening schedule is recommended. Tan Ortiz M.D. pt/morales:04/25/2022 08:17:23 Pharmaceutical Process Engineer(s): RT Elliot(R)(M), [facility] Ultrasound BI-RADS: 2 Benign finding Multiple national specialty organizations have released breast cancer screening guidelines for women at average risk for developing breast cancer - guidelines that are based on both evidence and opinion, yet differ on when to start and how often to screen for breast cancer. With representation from Breast Imaging, Internal Medicine, Women's Health, Family Medicine, and Medical/Surgical Oncology, the [facility] has carefully reviewed the data and [...] their providers when to stop screening mammograms. Group Account Director: Morales Transcribe Date/Time: Apr 25 2022 8:08A Dictated by: TAN ORTIZ MD This examination was interpreted and the report reviewed and electronically signed by: TAN ORTIZ MD on Apr 25 2022 8:17AM [facility] DIVISION OF RADIOLOGY * * *Final Report* * * DATE OF EXAM: Apr 25 2022 8:17AM [facility] 0594 - [facility] BREAST LTD RT / PROCEDURE REASON: multiple diagnoses * * * * Physician Interpretation * * * * RESULT: #[id number] - [facility] BREAST LTD RT ULTRASOUND OF RIGHT AXILLA: 04/25/2022 HISTORY: Call back/abnormal mamm: Right. RESULT: Comparison is made to exams dated: 04/21/2022 mammogram, 10/16/2020 mammogram - [facility], 12/09/2017 mammogram, 08/15/2015 mammogram, and 05/15/2014 mammogram - [facility]. Color flow and real-time ultrasound of [...] superior lymph node. DIVISION OF RADIOLOGY Provider, [facility] - 04/25/2022 * * *Final Report* * * DATE OF EXAM: Apr 25 2022 8:17AM [facility] 0594 - [facility] BREAST [facility] RT / PROCEDURE REASON: multiple diagnoses * * * * Physician Interpretation * * * * RESULT: #[id number] - [facility] BREAST [facility] RT ULTRASOUND OF RIGHT AXILLA: 04/25/2022 HISTORY: Call back/abnormal mamm: Right. RESULT: Comparison is made to exams dated: 04/21/2022 mammogram, 10/16/2020 mammogram - [facility], 12/09/2017 mammogram, 08/15/2015 mammogram, and 05/15/2014 mammogram - [facility]. Color flow and real-time ultrasound of [...] is recommended. Tan Ortiz M.D. pt/morales:04/25/2022 08:17:23 Pharmaceutical Process Engineer(s): RT Elliot(R)(M), [facility] Ultrasound BI-RADS: 2 Benign finding Multiple national specialty organizations have released breast cancer screening guidelines for women at average risk for developing breast cancer - guidelines that are based on both evidence and opinion, yet differ on when to start and how often to screen for breast cancer. With representation from Breast Imaging, Internal Medicine, Women's Health, Family Medicine, and Medical/Surgical Oncology, the [facility] has carefully reviewed the data and [...] their providers when to stop screening mammograms. Group Account Director: Morales Transcribe Date/Time: Apr 25 2022 8:08A Dictated by: TAN ORTIZ MD This examination was interpreted and the report reviewed and electronically signed by: TAN ORTIZ MD on Apr 25 2022 8:17AM EST [facility] Radiology Study observation (narrative) [facility] US Breast - right limitedOrd ered By: [facility]cf Provider on 04-25-2022 [facility] HARSH SCREENING W TOMOon 04-21 [facility] CNPNon 11-22-2021 CNPN Telephone ([facility]) REBECA WILSON ([id number]) 1965 F Date Time Provider Department 11/22/21 RUPA CHACON During your visit today, we recorded the following information about you: OCTAVIA Mei 11/22/2021 2:35 PM Signed Results left on patient voicemail. Rebeca Wilson's Custom Cancer Panel through [employer] was negative for a pathogenic variant. Please see [employer] message for further discussion. OCTAVIA Mei Licensed, [...] Encounter Status:Closed by RUPA CHACON on 11/22/21 [facility] DXA-AXIAL SKELETONon 022 [facility] MG Breast specimen - right V iewson 10-07-2021 IMPRESSION: UNI-PLAN AR RADIOGRAPH SPECIMEN IMAGING The imaged specimen includes a biopsy clip and a location device. SUMMARY: Urgent Results: The results of the specimen radiograph were discussed with Dr. Bravo in the OR on 10/07/2021. Kenyetta Trevino M.D. cp/morales:10/07/2021 11:13:32 Pharmaceutical Process Engineer(s): RT Tanisha(R)(M), [facility] Multiple national specialty organizations have released breast cancer screening guidelines for women at average risk for developing breast cancer - guidelines that are based on both evidence and opinion, yet differ on when to start and how often to screen for breast cancer. With representation from Breast Imaging, Internal Medicine, Women's Health, Family Medicine, and Medical/Surgical Oncology, the [facility] has carefully reviewed the data and [...] their providers when to stop screening mammograms. Group Account Director: Morales Transcribe Date/Time: Oct 07 2021 9:46A Dictated by: KENYETTA TREVINO MD This examination was interpreted and the report reviewed and electronically signed by: KENYETTA TREVINO MD on Oct 07 2021 11:13AM EST [email or web address] E_DIVISION OF RADIOLOGY * * *Final Report* * * DATE OF EXAM: Oct 07 2021 9:47AM [facility] 0639 - [facility] SURGICAL BREAST SPECIMEN RT / PROCEDURE REASON: multiple diagnoses * * * * Physician Interpretation * * * * RESULT: #[id number] - [facility] BREAST SPECIMEN RT UNI-PLANAR RADIOGRAPH SPECIMEN IMAGING RIGHT BREAST: 10/07/2021 HISTORY: Right breast specimen. No prior exams were available for correlation. A surgical specimen was imaged using uni-planar radiograph specimen imaging for the previous biopsy site located in the right breast at 1 o'clock posterior depth 3 cm from the skin. [email or web address] E_DIVISION OF RADIOLOGY Provider, [facility] - 10/07/2021 * * *Final Report* * * DATE OF EXAM: Oct 07 2021 9:47AM [facility] 0639 - [facility] SURGICAL BREAST SPECIMEN RT / PROCEDURE REASON: multiple diagnoses * * * * Physician Interpretation * * * * RESULT: #[id number] - [facility] BREAST SPECIMEN RT UNI-PLANAR [...] on 10/07/2021. Kenyetta Trevino M.D., cp/morales:10/07/2021 11:13:32 Pharmaceutical Process Engineer(s): RT Tanisha(R)(M), [facility] Multiple national specialty organizations have released breast cancer screening guidelines for women at average risk for developing breast cancer - guidelines that are based on both evidence and opinion, yet differ on when to start and how often to screen for breast cancer. With representation from Breast Imaging, Internal Medicine, Women's Health, Family Medicine, and Medical/Surgical Oncology, the [facility] has carefully reviewed the data and [...] their providers when to stop screening mammograms. Group Account Director: Morales Transcribe Date/Time: Oct 07 2021 9:46A Dictated by: KENYETTA TREVINO MD This examination was interpreted and the report reviewed and electronically signed by: KENYETTA TREVINO MD on Oct 07 2021 11:13AM EST [facility] Radiology Study observation (narrative) [facility] NM Lymph node Viewson 2021 IMPRESSION: Right breast radiotracer injection. Group Account Director: NAHOMI Transcribe Date/Time: Oct 07 2021 8:05A [...] the electronic medical record and with the nuclear powerplant mechanic. 474.9 microcuries of filtered technetium-99m sulfur colloid combined with 40 mg Lidocaine were injected in three aliquots into the retroareolar tissue of the right breast. RESULT: No imaging was obtained. [email or web address]_NOT_US E_DIVISION OF RADIOLOGY Provider, [facility] - 10/07/2021 * * *Final Report* * * DATE OF EXAM: Oct 07 2021 7:53AM [facility] 2190 - NM INJ SENT NODE BREAST RT / PROCEDURE REASON: multiple diagnoses * * * * Physician Interpretation * * * * BREAST LYMPHOSCINTIGRAPHY: HISTORY: Breast cancer. TECHNIQUE: Prior to radiopharmaceutical administration, the injection site was verified with the electronic medical record and with the nuclear powerplant mechanic. 474.9 microcuries of filtered technetium-99m sulfur colloid combined with 40 mg Lidocaine were injected in three aliquots into the retroareolar tissue of the right breast. RESULT: No imaging was obtained. IMPRESSION IMPRESSION: Right breast radiotracer injection. Group Account Director: NAHOMI Transcribe Date/Time: Oct 07 2021 8:05A Dictated by : KENYETTA TREVINO MD This examination was interpreted and the report reviewed and electronically signed by: KENYETTA TREVINO MD on Oct 07 2021 8:07AM EST [facility] Radiology Study observation (narrative) [facility] NM Lymph node ViewsOrdered B y: [facility] Provider on 10-07-2021 [facility] DBT Breast - bilateral diagn ostic for implanton 10-02-2021 * * *Final Report* * * DATE OF EXAM: Oct 02 2021 2:48PM SSW 0627 - HARSH DIAG W YANE ANSHU / PROCEDURE REASON: multiple diagnoses * * * * Physician Interpretation * * * * RESULT: #[id number] - HARSH DIAG W YANE ANSHU BILATERAL [...] dated: 08/20/2021 ultrasound biopsy, 08/20/2021 mammogram - [facility], 07/17/2021 mammogram, 07/17/2021 ultrasound, and 10/16/2020 mammogram - [facility]. The tissue of both breasts is heterogeneously dense. This may lower the sensitivity of mammography. There is no mammographic evidence of malignancy in the left breast. There is a marker clip in the appropriate position in the right breast at 1 o'clock posterior depth. This marker clip placement is at the biopsy site. ZZZ_DO_NOT_US E_DIVISION OF RADIOLOGY Provider, [facility] - 10/02/2021 * * *Final Report* * * DATE OF EXAM: Oct 02 2021 2:48PM SSW 0627 - HARSH PLATAPrashanth Zapien YANE ANSHU / PROCEDURE REASON: multiple diagnoses * * * * Physician Interpretation * * * * RESULT: #[id number] - HARSH DIAG Rupali YANE ANSHU BILATERAL [...] dated: 08/20/2021 ultrasound biopsy, 08/20/2021 mammogram - [facility], 07/17/2021 mammogram, 07/17/2021 ultrasound, and 10/16/2020 mammogram - [facility]. The tissue of both breasts is [...] care of Dr. Bravo. Kenyetta Trevino M.D., cp/pennnacy:10/02/2021 15:30:19 Pharmaceutical Process Engineer(s): RT Tanisha(R)(M), [facility] Mammogram BI-RADS: Post-procedure mammogram for marker placement [...] Health, Family Medicine, and Medical/Surgical Oncology, the [facility] has carefully reviewed the data and [...] their providers when to stop screening mammograms. Group Account Director: Morales Transcribe Date/Time: Oct 02 2021 2:37P Dictated by: KENYETTA TREVINO MD This examination was interpreted and the report reviewed and electronically signed by: KENYETTA TREVINO MD on Oct 02 2021 3:30PM EST [facility] Radiology Study observation (narrative) [facility] US Guidance for localization of Breast - righton 10-02-2021 IMPRESSION: INFRARED ACTIVATED ELECTROMAGNETIC REFLECTOR DEVICE PLACEMENT Infrared activated electromagnetic reflector device placement for the mass in the right breast at 1 o'clock posterior depth 3 cm from the nipple was successful with no apparent post procedure complications. A specimen radiograph is recommended. Clip placement/activation was verified with Oncology Account Specialist Check following the procedure. SUMMARY: The patient is under the care of Dr. Bravo. Kenyetta Trevino M.D., cp/morales:10/02/2021 15:21:46 Pharmaceutical Process Engineer(s): RT Tanisha(R)(M), [facility] Multiple national specialty organizations have released breast cancer screening guidelines for women at average risk for developing breast cancer - guidelines that are based on both evidence and opinion, yet differ on when to start and how often to screen for breast cancer. With representation from Breast Imaging, Internal Medicine, Women's Health, Family Medicine, and Medical/Surgical Oncology, the [facility] has carefully reviewed the data and [...] their providers when to stop screening mammograms. Group Account Director: Morales Transcribe Date/Time: Oct 02 2021 2:21P Dictated by: KENYETTA TREVINO MD This examination was interpreted and the report reviewed and electronically signed by: KENYETTA TREVINO MD on Oct 02 2021 3:21PM EST ZZZ_DO_NOT_US E_DIVISION OF RADIOLOGY * * *Final Report* * * DATE OF EXAM: Oct 02 2021 2:48PM [facility] 0600 - [facility] US LOC BREAST RT / PROCEDURE REASON: multiple diagnoses * * * * Physician Interpretation * * * * RESULT: #[id number] - [facility] US LOC BREAST RT ULTRASOUND GUIDED INFRARED [...] 08/20/2021 mammogram and 08/20/2021 ultrasound biopsy - [facility]. An infrared activated electromagnetic reflector device placement [...] targeted area. ZZZ_DO_NOT_US E_DIVISION OF RADIOLOGY Provider, [facility] - 10/02/2021 * * *Final Report* * * DATE OF EXAM: Oct 02 2021 2:48PM [facility] 0600 - [facility] US LOC BREAST RT / PROCEDURE REASON: multiple diagnoses * * * * Physician Interpretation * * * * RESULT: #[id number] - [facility] US LOC BREAST RT ULTRASOUND GUIDED INFRARED [...] 08/20/2021 mammogram and 08/20/2021 ultrasound biopsy - [facility]. An infrared activated electromagnetic reflector device [...] is recommended. Clip placement/activation was verified with Oncology Account Specialist Check following the procedure. SUMMARY: The patient is under the care of Dr. Bravo. Kenyetta Trevino M.D., cp/morales:10/02/2021 15:21:46 Pharmaceutical Process Engineer(s): RT Tanisha(Victor M)(M), [facility] Multiple national specialty organizations have released breast cancer screening guidelines for women at average risk for developing breast cancer - guidelines that are based on both evidence and opinion, yet differ on when to start and how often to screen for breast cancer. With representation from Breast Imaging, Internal Medicine, Women's Health, Family Medicine, and Medical/Surgical Oncology, the [facility] has carefully reviewed the data and [...] their providers when to stop screening mammograms. Group Account Director: Morales Transcribe Date/Time: Oct 02 2021 2:21P Dictated by: KENYETTA TREVINO MD This examination was interpreted and the report reviewed and electronically signed by: KENYETTA TREVINO MD on Oct 02 2021 3:21PM EST [facility] Radiology Study observation (narrative) [facility] US Guidance for localization of Breast - rightOrdered By: [facility]cf Provider on 10-02-2021 [facility] DIAG W YANE RTon 022 HARSH DIAG W YANE RT * * *Final Report* * * * * * SEE BOTTOM OF REPORT FOR ADDENDED TEXT * * * DATE OF EXAM: Aug 20 2021 10:35AM AAW 0629 - HARSH DIAG W YANE RT / PROCEDURE REASON: Abnormal mammogram * * * * Physician Interpretation * * * * FINAL REPORT #[id number] - [facility] US BIOPSY BREAST RT #[id number] - [facility] DIAG W YANE RT ULTRASOUND GUIDED BIOPSY [...] undergo the procedure. Dr. Gruber and a surgical scrub technologist were present throughout the entire procedure. Audible Time Out Time: 1010 Procedure Start Time: 1011 Procedure Stop Time: 1020 Dr. Gruber performed the entire procedure without an medical assistant secretary. PROCEDURE: Correlation is made to exams dated: 07/17/2021 ultrasound and 07/17/2021 mammogram - [facility]. An ultrasound guided biopsy using real-time ultrasound [...] above concordant biopsy results. [place]ourdes villa/morales:08/28/2021 16:17:05 Pharmaceutical Process Engineer(s): Bonnie Sagastume R.D.M.S., [facility]; RT Demi(R)(M), [facility] [place] Multiple national specialty organizations have released breast cancer screening guidelines for women at average risk for developing breast cancer - guidelines that are based on both evidence and opinion, yet differ on when to start and how often to screen for breast cancer. With representation from Breast Imaging, Internal Medicine, Women's Health, Family Medicine, and Medical/Surgical Oncology, the [facility] has carefully reviewed the data and [...] their providers when to stop screening mammograms. Group Account Director: Morales Transcribe Date/Time: Aug 20 2021 9:36A Dictated by : LOURDES GRUBER MD This examination was interpreted and the report reviewed and electronically signed by: LOURDES GRUBER MD on Aug 20 2021 12:38PM EST This document has been addended by: LOURDES GRUBER MD on Aug 28 2021 4:17PM EST [id number] Normal [facility] US BIOPSY BREAST RTon [facility] US BIOPSY BREAST RT * * *Final Report* * * * * * SEE BOTTOM OF REPORT FOR ADDENDED TEXT * * * DATE OF EXAM: Aug 20 2021 10:26AM AAW 0598 - [facility] US BIOPSY BREAST RT / PROCEDURE REASON: Abnormal mammogram * * * * Physician Interpretation * * * * FINAL REPORT #[id number] - [facility] US BIOPSY BREAST RT #[id number] - [facility] DIAG W YANE RT ULTRASOUND GUIDED BIOPSY [...] undergo the procedure. Dr. Gruber and a surgical scrub technologist were present throughout the entire procedure. Audible Time Out Time: 1010 Procedure Start Time: 1011 Procedure Stop Time: 1020 Dr. Gruber performed the entire procedure without an medical assistant secretary. PROCEDURE: Correlation is made to exams dated: 07/17/2021 ultrasound and 07/17/2021 mammogram - [facility]. An ultrasound guided biopsy using real-time ultrasound [...] above concordant biopsy results. [place]ourdes villa/morales:08/28/2021 16:17:05 Pharmaceutical Process Engineer(s): Bonnie Sagastume R.D.M.S., [facility]; RT Demi(R)(M), [facility] Multiple national specialty organizations have released breast cancer screening guidelines for women at average risk for developing breast cancer - guidelines that are based on both evidence and opinion, yet differ on when to start and how often to screen for breast cancer. With representation from Breast Imaging, Internal Medicine, Women's Health, Family Medicine, and Medical/Surgical Oncology, the [facility] has carefully reviewed the data and [...] their providers when to stop screening mammograms. Group Account Director: Morales Transcribe Date/Time: Aug 20 2021 9:36A Dictated by : LOURDES GRUBER MD This examination was interpreted and the report reviewed and electronically signed by: LOURDES GRUBER MD on Aug 20 2021 12:38PM EST This document has been addended by: LOURDES GRUBER MD on Aug 28 2021 4:17PM EST [id number] [facility] SURGICAL PATHOLOGYon 022 CASE REPORT [facility] Comment on above: Order Comment: Speci men Type: TISSUE SPECIMEN Ordering Facility: [facility] Address: [address] [place], [place] [id number] Result Comment: Surg ical Pathology Report Case: [id number] Authorizing Provider: Lourdes Gruber MD Collected: 08/20/2021 10:14 AM Ordering Location: [facility] Received: 08/20/2021 03:38 PM [facility] Pathologist: Jose E Gonzalez MD Specimen: BREAST CORE BIOPSY RIGHT, 1:00 3 cm FN Performed By: #### S #### [facility] CLIA [id number] [address] [place] [address] CLINICAL HISTORY Suspicious irregular mass. R/O malignancy [facility] Comment on above: Order Comment: Speci men Type: TISSUE SPECIMEN Ordering Facility: [facility] Address: [address] [place], [place] [address] Performed By: #### S #### [facility] CLIA [id number] [address] [place] [address] DIAGNOSIS COMMENT Normal [facility] Comment on above: Order Comment: Speci men Type: TISSUE SPECIMEN Ordering Facility: [facility] Address: [address] [place], [place] [id number] Result Comment: Sect ions demonstrate an invasive [...] features. (The E-cadherin stain was performed at [facility] and interpreted at [facility].) There is focal lobular neoplasia (either atypical lobular hyperplasia or lobular carcinoma in situ), as demonstrated by the presence of CYTW-9-smysxarb myoepithelial cells. Immunohistochemical stains for ER and NH were performed with results in a linked report. HER-2 evaluation was performed at [facility] with results in a linked report. The case was reviewed by Dr. Tyson White, who agrees with this assessment. Laboratory Developed Test (LDT) Disclaimer: Performance characteristics of immunohistochemical, immunofluorescent and chromogenic in-situ hybridization tests have been determined by the performing laboratory within [facility]???s [facility] [place] ([facility], [facility], [facility] or [facility]) in a manner consistent with CLIA requirements. One or more of these tests have not been cleared or approved by the FDA. [facility] is regulated under CLIA as qualified to perform high-complexity testing. These tests are used for clinical purposes. They should not be regarded as investigational or for research. Positive and negative controls stain appropriately. Performed By: #### S #### [facility] CLIA [id number] [address] FINAL DIAGNOSIS Normal [facility] Comment on above: Order Comment: Speci men Type: TISSUE SPECIMEN Ordering Facility: [facility] Address: [address] [place] [address] Result Comment: Indio roet, right, 1:00, 3 cm from nipple, core biopsy: - Invasive mammary carcinoma, provisional histologic grade 2, (see comment). Performed By: #### S #### [facility] CLIA [id number] [address] FINAL PERFORMING LAB Normal [facility] Comment on above: Order Comment: Speci men Type: TISSUE SPECIMEN Ordering Facility: [facility] Address: [address] [place] [address] Result Comment: Diag nostic interpretation performed at [facility], [address] [place] [address] CLIA# [id number] Human Resources Clerk: Tyson White M.D. Performed By: #### S #### [facility] CLIA [id number] [address] [place] [address] GROSS DESCRIPTION Normal [facility] Comment on above: Order Comment: Speci men Type: TISSUE SPECIMEN Ordering Facility: [facility] Address: [address] [place] [address] Result Comment: Berto. Irma REAST CORE BIOPSY [...] in 1 cassette. Gross examination performed at [facility], [address] [place] [address] RSA August 21, 2021 8:40 AM Performed By: #### S #### [facility] CLIA [id number] [address] HARSH DIAG W YANE RTon 022 [facility] US BREAST LTD RTon 2 [facility] NOVEL CORONAVIRUS NASOPHARYN GEAL - [facility] SPECIMEN ONLYon 06-04-2020 SARS-COV-2 NOT DETECTED Normal NOT DETECTED [facility] Comment on above: Order Comment: Submi tter Name: [facility] Agent Suspected: SARS-COV-2 This test was performed using real time PCR and has been approved for the qualitative detection of SARS-CoV-2 nucleic acid. The test has been authorized by the FDA under an emergency use authorization for use by authorized laboratories. Result Comment: [facility] CLINICAL LABORAT[facility] Negative results do not [...] or clinically deteriorating. Performed By: #### L [id number] #### [facility] (DEFAULT) [address] [place] [address] NOVEL CORONAVIRUS NASOPHARYN GEAL - [facility] SPECIMEN ONLYon 05-21-2020 SARS-COV-2 NOT DETECTED Normal NOT DETECTED [facility] Comment on above: Order Comment: Submi tter Name: [facility] Agent Suspected: SARS-COV-2 This test was performed using real time PCR and has been approved for the qualitative detection of SARS-CoV-2 nucleic acid. The test has been authorized by the FDA under an emergency use authorization for use by authorized laboratories. Result Comment: [facility] CL[facility]ICAL [facility]OR[facility] Negative results do not preclude [...] or clinically deteriorating. Performed By: #### L [id number] #### [facility] (DEFAULT) [address] [place] [address] NOVEL CORONAVIRUS NASOPHARYN GEAL - [facility] SPECIMEN ONLYon 05-06-2020 SARS-COV-2 NOT DETECTED Normal NOT DETECTED [facility] Comment on above: Order Comment: Submi tter Name: [facility] Agent Suspected: SARS-COV-2 This test was performed [...] or clinically deteriorating. Performed By: #### L [id number] #### [facility] (DEFAULT) [address] [place] [address] NOVEL CORONAVIRUS NASOPHARYN GEAL - [facility] SPECIMEN ONLYon 04-23-2020 SARS-COV-2 NOT DETECTED Normal NOT DETECTED [facility] Comment on above: Order Comment: Submi tter Name: [facility] Agent Suspected: SARS-COV-2 This test was performed [...] or clinically deteriorating. Performed By: #### L [id number] #### [facility] (DEFAULT) [address] [place] [address] NOVEL CORONAVIRUS NASOPHARYN GEAL - [facility] SPECIMEN ONLYon 04-09-2020 SARS-COV-2 NOT DETECTED Normal NOT DETECTED [facility] Comment on above: Order Comment: Submi tter Name: [facility] Agent Suspected: SARS-COV-2 This test was performed using real time PCR for the qualitative detection of SARS-CoV-2 nucleic acid. The test has been reviewed by the FDA and given emergency use authorization. This test was developed and its performance characteristics determined by The [facility] at [facility]. This test is used for clinical purposes. [...] or clinically deteriorating. Performed By: #### L [id number] #### [facility] (DEFAULT) [address] [place] [address] NOVEL CORONAVIRUS NASOPHARYN GEAL - [facility] SPECIMEN ONLYon 03-27-2020 SARS-COV-2 NOT DETECTED Normal NOT DETECTED [facility] Comment on above: Order Comment: Submi tter Name: [facility] Agent Suspected: SARS-COV-2 This test was performed [...] or clinically deteriorating. Performed By: #### L [id number] #### [facility] (DEFAULT) [address] [address] NOVEL CORONAVIRUS NASOPHARYN GEAL - [facility] SPECIMEN ONLYon 03-12-2020 SARS-COV-2 NOT DETECTED Normal NOT DETECTED [facility] Comment on above: Order Comment: Submi tter Name: [facility] Agent Suspected: SARS-COV-2 This test was performed [...] or clinically deteriorating. Performed By: #### L [id number] #### [facility] (DEFAULT) [address] [place] [address] NOVEL CORONAVIRUS NASOPHARYN GEAL - [facility] SPECIMEN ONLYon 02-27-2020 SARS-COV-2 NOT DETECTED Normal NOT DETECTED [facility] Comment on above: Order Comment: Submi tter Name: [facility] Agent Suspected: SARS-COV-2 This test was performed using real time PCR for the qualitative detection of SARS-CoV-2 nucleic acid. The test has been reviewed by the FDA and given emergency use authorization. This test was developed and its performance characteristics determined by [facility]. This test is used for clinical purposes. [...] or clinically deteriorating. Performed By: #### L [id number] #### [facility] (DEFAULT) [address] [place] [address] NOVEL CORONAVIRUS NASOPHARYN GEAL - [facility] SPECIMEN ONLYon 02-20-2020 SARS-COV-2 NOT DETECTED Normal NOT DETECTED [facility] Comment on above: Order Comment: Submi tter Name: [facility] Agent Suspected: SARS-COV-2 This test was performed using real time PCR for the qualitative detection of SARS-CoV-2 nucleic acid. The test has been reviewed by the FDA and given emergency use authorization. This test was developed and its performance characteristics determined by [facility]. This test is used for clinical purposes. [...] or clinically deteriorating. Performed By: #### L [id number] #### [facility] (DEFAULT) [address] [place] [address] NOVEL CORONAVIRUS NASOPHARYN GEAL - [facility] SPECIMEN ONLYon 02-06-2020 SARS-COV-2 NOT DETECTED Normal NOT DETECTED [facility] Comment on above: Order Comment: Submi tter Name: [facility] Agent Suspected: SARS-COV-2 This test was performed [...] or clinically deteriorating. Performed By: #### L [id number] #### [facility] (DEFAULT) [address] [place] [address] NOVEL CORONAVIRUS NASOPHARYN GEAL - [facility] SPECIMEN ONLYon 01-23-2020 SARS-COV-2 NOT DETECTED Normal NOT DETECTED [facility] Comment on above: Order Comment: Submi tter Name: [facility] Agent Suspected: SARS-COV-2 This test was performed using real time PCR for the qualitative detection of SARS-CoV-2 nucleic acid. The test has been reviewed by the FDA and given emergency use authorization. This test was developed and its performance characteristics determined by [facility]. This test is used for clinical purposes. [...] or clinically deteriorating. Performed By: #### L [id number] #### [facility] (DEFAULT) [address] [address] NOVEL CORONAVIRUS NASOPHARYN GEAL - [facility] SPECIMEN ONLYon 01-09-2020 SARS-COV-2 NOT DETECTED Normal NOT DETECTED [facility] Comment on above: Order Comment: Submi tter Name: [facility] Agent Suspected: SARS-COV-2 This test was performed using real time PCR for the qualitative detection of SARS-CoV-2 nucleic acid. The test has been reviewed by the FDA and given emergency use authorization. This test was developed and its performance characteristics determined by [facility]. This test is used for clinical purposes. [...] or clinically deteriorating. Performed By: #### L [id number] #### [facility] (DEFAULT) [address] [address] NOVEL CORONAVIRUS NASOPHARYN GEAL - [facility] SPECIMEN ONLYon 10-17-2019 SARS-COV-2 NOT DETECTED Normal NOT DETECTED [facility] Comment on above: Order Comment: Submi tter Name: [facility] Agent Suspected: SARS-COV-2 This test was performed using real time PCR and has been approved for the qualitative detection of SARS-CoV-2 nucleic acid. The test has been authorized by the FDA under an emergency use authorization for use by authorized laboratories. Testing was completed on behalf of the [facility] as directed by public [employer] order for the purpose of testing for [...] or clinically deteriorating. Performed By: #### L [id number] #### [facility] ([facility]) [address] [place] [address] Vital Signs Date Time Vital Sign Value Performing Clinician Facility 05-23-2024 08:35-0400 Body mass index (BMI) [Ratio] 34.31 kg/m2 Stephanie Crawford APRN.RESIDENTIAL SALES REPRESENTATIVE Work Phone: [facility] 05-23-2024 08:35-0400 Body temperature 99.19 [degF] Stephanie Crawford APRN.RESIDENTIAL SALES REPRESENTATIVE Work Phone: [facility] 05-23-2024 08:35-0400 Body weight 95.7 kg Stephanie Crawford APRN.RESIDENTIAL SALES REPRESENTATIVE Work Phone: [facility] 05-23-2024 08:35-0400 Diastolic blood pressure 86 mm[Hg] Stephanie Crawford APRN.RESIDENTIAL SALES REPRESENTATIVE Work Phone: [facility] 05-23-2024 08:35-0400 Heart rate 82 /min Stephanie Crawford APRN.RESIDENTIAL SALES REPRESENTATIVE Work Phone: [facility] 05-23-2024 08:35-0400 SaO2% (BldA) [Mass fraction] 96 % Stephanie Crawford APRN.RESIDENTIAL SALES REPRESENTATIVE Work Phone: [facility] 05-23-2024 08:35-0400 Systolic blood pressure 144 mm[Hg] Stephanie Crawford INFORMATICS NURSE.RESIDENTIAL SALES REPRESENTATIVE Work Phone: [facility] 01-12-2024 17:05-0500 Body height 167 cm Akira Pierre MD Work Phone: [facility] 01-12-2024 17:05-0500 Body mass index (BMI) [Ratio] 34.39 kg/m2 Akira Pierre MD Work Phone: [facility] 01-12-2024 17:05-0500 Body temperature 98.91 [degF] Akira Pierre MD Work Phone: [facility] 01-12-2024 17:05-0500 Body weight 95.9 kg Akira Pierre MD Work Phone: [facility] 01-12-2024 17:05-0500 Diastolic blood pressure 82 mm[Hg] Akira Pierre MD Work Phone: [facility] 01-12-2024 17:05-0500 Heart rate 83 /min Akira Pierre MD Work Phone: [facility] 01-12-2024 17:05-0500 Respiratory rate 16 /min Akira Pierre MD Work Phone: [facility] 01-12-2024 17:05-0500 SaO2% (BldA) [Mass fraction] 98 % Akira Pierre MD Work Phone: [facility] 01-12-2024 17:05-0500 Systolic blood pressure 126 mm[Hg] Akira Pierre MD Work Phone: [facility] 11-24-2023 08:15-0400 Body mass index (BMI) [Ratio] 33.88 kg/m2 Stephanie Crawford INFORMATICS NURSE.RESIDENTIAL SALES REPRESENTATIVE Work Phone: [facility] 11-24-2023 08:15-0400 Body weight 95.2 kg Stephanie Crawford INFORMATICS NURSE.RESIDENTIAL SALES REPRESENTATIVE Work Phone: [facility] 11-24-2023 08:15-0400 Diastolic blood pressure 85 mm[Hg] Stephanie Crawford INFORMATICS NURSE.RESIDENTIAL SALES REPRESENTATIVE Work Phone: [facility] 11-24-2023 08:15-0400 Heart rate 82 /min Stephanie Cassidyenter INFORMATICS NURSE.RESIDENTIAL SALES REPRESENTATIVE Work Phone: [facility] 11-24-2023 08:15-0400 SaO2% (BldA) [Mass fraction] 96 % Stephanie Cassidyenter INFORMATICS NURSE.RESIDENTIAL SALES REPRESENTATIVE Work Phone: [facility] 11-24-2023 08:15-0400 Systolic blood pressure 134 mm[Hg] Stephanie Cassidyenter INFORMATICS NURSE.RESIDENTIAL SALES REPRESENTATIVE Work Phone: [facility] 08-24-2023 15:52-0400 Body mass index (BMI) [Ratio] 34.22 kg/m2 Nahun Carmelitai DO Work Phone: [facility] 08-24-2023 15:52-0400 Body temperature 98.4 [degF] Nahun Masci DO Work Phone: [facility] 08-24-2023 15:52-0400 Body weight 96.16 kg Nahun Masci DO Work Phone: [facility] 08-24-2023 15:52-0400 Diastolic blood pressure 79 mm[Hg] Nahun Masci DO Work Phone: [facility] 08-24-2023 15:52-0400 Heart rate 71 /min Anhun Masci DO Work Phone: [facility] 08-24-2023 15:52-0400 SaO2% (BldA) [Mass fraction] 96 % Nahun Masci DO Work Phone: [facility] 08-24-2023 15:52-0400 Systolic blood pressure 117 mm[Hg] Nahun Masci DO Work Phone: [facility] 06-02-2023 14:30-0400 Body height 167.6 cm Landy Schneider MD Work Phone: [facility] 06-02-2023 14:30-0400 Body temperature 98.2 [degF] Landy Schneider MD Work Phone: [facility] 06-02-2023 14:30-0400 Body weight 96.34 kg Landy Schneider MD Work Phone: [facility] 06-02-2023 14:30-0400 Diastolic blood pressure 74 mm[Hg] Landy Schneider MD Work Phone: [facility] 06-02-2023 14:30-0400 Heart rate 91 /min Landy Schneider MD Work Phone: [facility] 06-02-2023 14:30-0400 SaO2% (BldA) [Mass fraction] 100 % Landy Schneider MD Work Phone: [facility] 06-02-2023 14:30-0400 Systolic blood pressure 124 mm[Hg] Landy Schneider MD Work Phone: [facility] 01-06-2023 17:32-0400 Body height 167 cm Akira Pierre MD Work Phone: [facility] 01-06-2023 17:32-0400 Body temperature 97.5 [degF] Akira Pierre MD Work Phone: [facility] 01-06-2023 17:32-0400 Body weight 92.99 kg Akira Pierre MD Work Phone: [facility] 01-06-2023 17:32-0400 Diastolic blood pressure 68 mm[Hg] Akira Pierre MD Work Phone: [facility] 01-06-2023 17:32-0400 Heart rate 78 /min Akira Pierre MD Work Phone: [facility] 01-06-2023 17:32-0400 Respiratory rate 18 /min Akira Pierre MD Work Phone: [facility] 01-06-2023 17:32-0400 SaO2% (BldA) [Mass fraction] 98 % Akira Pierre MD Work Phone: [facility] 01-06-2023 17:32-0400 Systolic blood pressure 112 mm[Hg] Akira Pierre MD Work Phone: [facility] 11-21-2022 16:05-0400 Body temperature 97.9 [degF] Nahun Carmelitai DO Work Phone: [facility] 11-21-2022 16:05-0400 Body weight 91.4 kg Nahun Masci DO Work Phone: [facility] 11-21-2022 16:05-0400 Diastolic blood pressure 79 mm[Hg] Nahun Masci DO Work Phone: [facility] 11-21-2022 16:05-0400 Heart rate 68 /min Nahun Masci DO Work Phone: [facility] 11-21-2022 16:05-0400 SaO2% (BldA) [Mass fraction] 97 % Nahun Masci DO Work Phone: [facility] 11-21-2022 16:05-0400 Systolic blood pressure 117 mm[Hg] Nahun Masci DO Work Phone: [facility] 08-19-2022 15:47-0400 Body height 167.6 cm Quinton Myers MD Work Phone: [facility] 08-19-2022 15:47-0400 Body temperature 97.81 [degF] Quinton Myers MD Work Phone: [facility] 08-19-2022 15:47-0400 Body weight 90.27 kg Quinton Myers MD Work Phone: [facility] 08-19-2022 15:47-0400 Diastolic blood pressure 82 mm[Hg] Quinton Myers MD Work Phone: [facility] 08-19-2022 15:47-0400 Heart rate 87 /min Quinton Myers MD Work Phone: [facility] 08-19-2022 15:47-0400 SaO2% (BldA) [Mass fraction] 97 % Quinton Myers MD Work Phone: [facility] 08-19-2022 15:47-0400 Systolic blood pressure 130 mm[Hg] Quinton Myers MD Work Phone: [facility] 07-01-2022 08:49-0400 Body height 166.4 cm Trina Jorgensen MD Work Phone: [facility] 07-01-2022 08:49-0400 Body weight 88 kg Trina Jorgensen MD Work Phone: [facility] 07-01-2022 08:49-0400 Diastolic blood pressure 76 mm[Hg] Trina Jorgensen MD Work Phone: [facility] 07-01-2022 08:49-0400 Systolic blood pressure 122 mm[Hg] Trina Jorgnesen MD Work Phone: [facility] 06-20-2022 08:55-0400 Body weight 87.09 kg Celeste Salcedo INFORMATICS NURSE.ACTUARIAL ASSOCIATE Work Phone: [facility] 06-20-2022 08:55-0400 Diastolic blood pressure 68 mm[Hg] Celeste Salcedo INFORMATICS NURSE.ACTUARIAL ASSOCIATE Work Phone: [facility] 06-20-2022 08:55-0400 Heart rate 72 /min Celeste Salcedo INFORMATICS NURSE.ACTUARIAL ASSOCIATE Work Phone: [facility] 06-20-2022 08:55-0400 Respiratory rate 16 /min Celeste Salcedo INFORMATICS NURSE.ACTUARIAL ASSOCIATE Work Phone: [facility] 06-20-2022 08:55-0400 Systolic blood pressure 112 mm[Hg] Celeste Salcedo INFORMATICS NURSE.ACTUARIAL ASSOCIATE Work Phone: [facility] 05-13-2022 10:27-0500 Body temperature 98.4 [degF] Nahun Maei DO Work Phone: [facility] 05-13-2022 10:27-0500 Body weight 89.36 kg Nahun Carmelitai DO Work Phone: [facility] 05-13-2022 10:27-0500 Diastolic blood pressure 77 mm[Hg] Nahun Maei DO Work Phone: [facility] 05-13-2022 10:27-0500 Heart rate 75 /min Nahun Maei DO Work Phone: [facility] 05-13-2022 10:27-0500 Systolic blood pressure 128 mm[Hg] Nahun Maei DO Work Phone: [facility] 05-06-2022 15:00-0500 Diastolic blood pressure 72 mm[Hg] [facility] 05-06-2022 15:00-0500 Heart rate 103 /min [facility] 05-06-2022 15:00-0500 Respiratory rate 16 /min [facility] 05-06-2022 15:00-0500 SaO2% (BldA) [Mass fraction] 99 % [facility] 05-06-2022 15:00-0500 Systolic blood pressure 113 mm[Hg] [facility] 05-06-2022 14:55-0500 Body temperature 98 [degF] [facility] 05-06-2022 11:52-0500 Body mass index (BMI) [Ratio] 32.3 kg/m2 [facility] 05-06-2022 11:52-0500 Body weight 90.7 kg [facility] 05-06-2022 11:51-0500 Body height 167.64 cm [facility] 05-05-2022 14:24-0500 Body temperature 97.81 [degF] Treatment Wstr Work Phone: [facility] 05-05-2022 14:24-0500 Diastolic blood pressure 68 mm[Hg] Treatment [facility]str Work Phone: [facility] 05-05-2022 14:24-0500 Heart rate 69 /min Treatment [facility] Work Phone: [facility] 05-05-2022 14:24-0500 Respiratory rate 16 /min Treatment [facility] Work Phone: [facility] 05-05-2022 14:24-0500 Systolic blood pressure 121 mm[Hg] Treatment [facility] Work Phone: [facility] 02-12-2022 14:50-0500 Body temperature 97.7 [degF] Nahun Maei DO Work Phone: [facility] 02-12-2022 14:50-0500 Body weight 90.72 kg Nahun Masci DO Work Phone: [facility] 02-12-2022 14:50-0500 Diastolic blood pressure 81 mm[Hg] Nahun Masci DO Work Phone: [facility] 02-12-2022 14:50-0500 Heart rate 69 /min Nahun Masci DO Work Phone: [facility] 02-12-2022 14:50-0500 Respiratory rate 15 /min Nahun Masci DO Work Phone: [facility] 02-12-2022 14:50-0500 SaO2% (BldA) [Mass fraction] 95 % Nahun Masci DO Work Phone: [facility] 02-12-2022 14:50-0500 Systolic blood pressure 134 mm[Hg] Nahun Masci DO Work Phone: [facility] 12-20-2021 09:22-0400 Body weight 89.36 kg Akira Pierre MD Work Phone: [facility] 12-20-2021 09:22-0400 Diastolic blood pressure 82 mm[Hg] Akira Pierre MD Work Phone: [facility] 12-20-2021 09:22-0400 Heart rate 64 /min Akira Pierre MD Work Phone: [facility] 12-20-2021 09:22-0400 SaO2% (BldA) [Mass fraction] 96 % Akira Pierre MD Work Phone: [facility] 12-20-2021 09:22-0400 Systolic blood pressure 122 mm[Hg] Akira Pierre MD Work Phone: [facility] 10-24-2021 11:20-0400 Body temperature 98.2 [degF] Caitlin Suarez MD Work Phone: [facility] 10-24-2021 11:20-0400 Body weight 89.27 kg Caitlin Suarez MD Work Phone: [facility] 10-24-2021 11:20-0400 Diastolic blood pressure 70 mm[Hg] Caitlin Suarez MD Work Phone: [facility] 10-24-2021 11:20-0400 Heart rate 76 /min Caitlin Suarez MD Work Phone: [facility] 10-24-2021 11:20-0400 Respiratory rate 16 /min Caitlin Suarez MD Work Phone: [facility] 10-24-2021 11:20-0400 SaO2% (BldA) [Mass fraction] 99 % Caitlin Suarez MD Work Phone: [facility] 10-24-2021 11:20-0400 Systolic blood pressure 120 mm[Hg] Caitlin Suarez MD Work Phone: [facility] 10-24-2021 09:56-0400 Body weight 89.81 kg Jose E Bettencourt MD Work Phone: [facility] 10-07-2021 11:45-0400 Body temperature 97.2 [degF] Amaya Lawrence DO Work Phone: [facility] 10-07-2021 11:45-0400 Diastolic blood pressure 61 mm[Hg] Amaya Lawrence DO Work Phone: [facility] 10-07-2021 11:45-0400 Heart rate 74 /min Amaya Lawrence DO Work Phone: [facility] 10-07-2021 11:45-0400 Respiratory rate 18 /min Amaya Lawrence DO Work Phone: [facility] 10-07-2021 11:45-0400 SaO2% (BldA) [Mass fraction] 94 % Amaya Lawrence DO Work Phone: [facility] 10-07-2021 11:45-0400 Systolic blood pressure 105 mm[Hg] Amaya Lawrence DO Work Phone: [facility] 10-04-2021 09:07-0400 Body height 166.4 cm Pacc 1 Work Phone: [facility] 10-04-2021 09:07-0400 Body temperature 98.01 [degF] Pacc 1 Work Phone: [facility] 10-04-2021 09:07-0400 Body weight 88.45 kg Pacc 1 Work Phone: [facility] 10-04-2021 09:07-0400 Diastolic blood pressure 82 mm[Hg] Pacc 1 Work Phone: [facility] 10-04-2021 09:07-0400 Heart rate 68 /min Pacc 1 Work Phone: [facility] 10-04-2021 09:07-0400 Respiratory rate 16 /min Pacc 1 Work Phone: [facility] 10-04-2021 09:07-0400 SaO2% (BldA) [Mass fraction] 97 % Pacc 1 Work Phone: [facility] 10-04-2021 09:07-0400 Systolic blood pressure 116 mm[Hg] Pacc 1 Work Phone: [facility] 09-26-2021 11:44-0400 Body height 166.3 cm Caitlin Suarez MD Work Phone: [facility] 09-26-2021 11:44-0400 Body temperature 97.9 [degF] Caitlin Suarez MD Work Phone: [facility] 09-26-2021 11:44-0400 Body weight 88.41 kg Caitlin Suarez MD Work Phone: [facility] 09-26-2021 11:44-0400 Diastolic blood pressure 73 mm[Hg] Caitlin Suarez MD Work Phone: [facility] 09-26-2021 11:44-0400 Heart rate 67 /min Caitlin Suarez MD Work Phone: [facility] 09-26-2021 11:44-0400 Respiratory rate 20 /min Caitlin Suarez MD Work Phone: [facility] 09-26-2021 11:44-0400 SaO2% (BldA) [Mass fraction] 97 % Caitlin Suarez MD Work Phone: [facility] 09-26-2021 11:44-0400 Systolic blood pressure 118 mm[Hg] Caitlin Suarez MD Work Phone: [facility] 09-26-2021 08:55-0400 Body height 167.6 cm Amayadaryl Bravo DO Work Phone: [facility] 09-26-2021 08:55-0400 Body weight 88 kg Amaya Lawrence DO Work Phone: [facility] 08-27-2021 15:56-0400 Body height 167.6 cm Quinton Myers MD Work Phone: [facility] 08-27-2021 15:56-0400 Body temperature 98.2 [degF] Quinton Myers MD Work Phone: [facility] 08-27-2021 15:56-0400 Body weight 89.36 kg Quinton Myers MD Work Phone: [facility] 08-27-2021 15:56-0400 Diastolic blood pressure 84 mm[Hg] Quinton Myers MD Work Phone: [facility] 08-27-2021 15:56-0400 Heart rate 104 /min Quinton Myers MD Work Phone: [facility] 08-27-2021 15:56-0400 SaO2% (BldA) [Mass fraction] 98 % Quinton Myers MD Work Phone: [facility] 08-27-2021 15:56-0400 Systolic blood pressure 146 mm[Hg] Quinton Myers MD Work Phone: [facility] 07-23-2021 08:09-0400 Body height 167.6 cm Quinton Myers MD Work Phone: [facility] 07-23-2021 08:09-0400 Body temperature 97.7 [degF] Quinton Myers MD Work Phone: [facility] 07-23-2021 08:09-0400 Body weight 89.36 kg Quinton Myers MD Work Phone: [facility] 07-23-2021 08:09-0400 Diastolic blood pressure 78 mm[Hg] Quinton Myers MD Work Phone: [facility] 07-23-2021 08:09-0400 Heart rate 105 /min Quinton Myers MD Work Phone: [facility] 07-23-2021 08:09-0400 SaO2% (BldA) [Mass fraction] 98 % Quinton Myers MD Work Phone: [facility] 07-23-2021 08:09-0400 Systolic blood pressure 122 mm[Hg] Quinton Myers MD Work Phone: [facility] 07-01-2021 09:36-0400 Body height 166.4 cm Trina Jorgensen MD Work Phone: [facility] 07-01-2021 09:36-0400 Body weight 88 kg Trina Jorgensen MD Work Phone: [facility] 07-01-2021 09:36-0400 Diastolic blood pressure 78 mm[Hg] Trina Jorgensen MD Work Phone: [facility] 07-01-2021 09:36-0400 Systolic blood pressure 122 mm[Hg] Trina Jorgensen MD Work Phone: [facility] 06-26-2021 15:04-0400 Body height 167.6 cm Edie Johnson MD Work Phone: [facility] 06-26-2021 15:04-0400 Body temperature 97.39 [degF] Edie Johnson MD Work Phone: [facility] 06-26-2021 15:04-0400 Body weight 88.45 kg Edie Johnson MD Work Phone: [facility] 06-26-2021 15:04-0400 Diastolic blood pressure 68 mm[Hg] Edie Johnson MD Work Phone: [facility] 06-26-2021 15:04-0400 Heart rate 97 /min Edie Johnson MD Work Phone: [facility] 06-26-2021 15:04-0400 SaO2% (BldA) [Mass fraction] 100 % Edie Johnson MD Work Phone: [facility] 06-26-2021 15:04-0400 Systolic blood pressure 112 mm[Hg] Edie Johnson MD Work Phone: [facility] Encounters Encounter Date Encounter Type Care Provider Facility Start: 09-30-2024 ambulatory Akira Pierre [facility] y:[facility] Start: 08-25-2024 End: 08-25-[address] Akira Pierre MD Work Phone: [facility] Work Phone: Start: 08-25-2024 End: 08-25-2024 Patient encounter procedure Maria De Jesus GASCA -MRI - [facility] Work Phone: Start: 08-25-2024 End: 08-25-2024 ambulatory Maria De Jesus [facility] Facility:[facility] Start: 08-12-2024 End: 08-12-[address] Akira Pierre MD Work Phone: [facility] Work Phone: Start: 08-12-2024 End: 08-12-2024 Patient encounter procedure Maria De Jesus GASCA -Ultrasound [facility] Work Phone: Start: 08-12-2024 End: 08-12-2024 ambulatory Maria De Jesus Heath Facility:[facility] Start: 08-10-2024 End: 08-10-2024 Patient encounter procedure Maria De Jesus ARGUETAC -[facility] Work Phone: Start: 08-10-2024 End: 08-10-[address] Akira Pierre MD Work Phone: [facility] Work Phone: Start: 07-07-2024 End: 07-10-2024 [...] RN Hematology/Oncology Start: 05-23-2024 End: 05-23-2024 ambulatory [facility] Facility: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 Start: 04-22-2024 End: 04-22-2024 Patient encounter procedure Screen Wstr [facility] Start: 04-22-2024 End: 04-22-2024 Subsequent hospital visit by physician Screen Mammo [facility] Comment on above: Malignant [...] encounter status Akira Pierre MD Work Phone: [facility] Work Phone: Start: 01-12-2024 End: 01-12-2024 [...] Start: 01-12-2024 End: 01-12-2024 ambulatory AKIRA PIERRE Facility: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 Start: 11-24-2023 End: 11-25-2023 Patient encounter [...] Start: 08-24-2023 End: 08-24-2023 ambulatory NAHUN ZAVALETA Facility: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 Start: 06-25-2023 End: 06-25-2023 ambulatory LANDY SCHNEIDER Facility:[facility] Start: 06-25-2023 End: 06-25-2023 Patient encounter procedure Landy Schneider MD Work Phone: General Surgery Comment on above: Ventral hernia witho ut obstruction or gangrene (Primary Dx) Start: 06-16-2023 Telephone encounter Nurse Nagy [facility] Work Phone: General Surgery Comment on above: FMLA Paperwork Start: 06-11-2023 End: 06-11-2023 ambulatory AKIRA PIERRE Facility:[facility] Start: 06-09-2023 Telephone encounter Landy Schneider MD [...] Start: 06-02-2023 End: 06-02-2023 ambulatory LANDY SCHNEIDER Facility:[facility] Start: 05-31-2023 Refill Kimber aCmp APRN.RESIDENTIAL SALES REPRESENTATIVE Work Phone: [facility] [place] Comment on above: Refill Request Start: 05-27-2023 [...] Patient encounter procedure Aleida Rodriguez Work Phone: [facility] Start: 05-22-2023 End: 05-22-2023 ambulatory Aleida [...] 04-23-2023 Documentation procedure Mammog julian Coordinator [facility] Start: 04-23-2023 Letter encounter Mammography Coordinator [facility] Department Start: 04-23-2023 End: 04-23-2023 Subsequent hospital visit by physician Screen Mammo [facility] Comment on above: 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, estrogen receptor positive (HCC) (HCC) [C50.211, Z17.0] Start: 02-13-2023 End: 02-13-2023 ambulatory Patrice Palencia MD Work Phone: Endocrinology Comment on above: Nontoxic multinodula r goiter (Primary Dx) Start: 02-13-2023 End: 02-13-2023 Telemedicine consultation with patient Patrice Palencia MD Work Phone: [facility] Start: 01-27-2023 End: 01-27-2023 Patient encounter procedure Jennifer Grossmanpster INFORMATICS NURSE.RESIDENTIAL SALES REPRESENTATIVE Work Phone: Pulmonary Medicine Comment on above: NO SHOW (Primary Dx) Start: 01-12-2023 ambulatory Fifi phillip PA-C Work Phone: Pulmonary Medicine Start: 01-08-2023 End: 01-08-2023 Subsequent hospital visit by physician [facility] Work Phone: Radiology Comment on above: Nontoxic multinodula r goiter [E04.2] Start: 01-06-2023 End: 01-06-2023 Patient encounter status Akira Pierre MD Work Phone: [facility] Work Phone: Start: 01-06-2023 End: 01-06-2023 Periodic preventive med est patient 40-64yrs Akira Pierre MD Work Phone: [facility] [place] Comment on above: Routine medical exam (Primary Dx); Constipation, unspecified constipation type Start: 12-15-2022 End: 12-15-2022 ambulatory Patrice Palnecia MD Work Phone: Endocrinology Comment on above: Nontoxic multinodula r goiter (Primary Dx) Start: 12-15-2022 End: 12-15-2022 Telemedicine consultation with patient Patrice Palencia MD Work Phone: [facility] Start: 11-24-2022 Refill Nahun Giraldo Work Phone: Hematology/Oncology Comment on above: Refill Request Start: 11-21-2022 End: 11-21-2022 ambulatory Nahun Zavaleta DO Work Phone: Hematology/Oncology Comment on above: Invasive ductal carc inoma of breast, right (HCC) (Primary Dx) Start: 11-21-2022 End: 11-21-2022 Patient encounter procedure Nahun Zavaleta DO Work Phone: [facility] Start: 11-17-2022 Chart abstracting Yenny Posadas RN Hematology/Oncology Comment on above: Research (CTD Thu BR007) Start: 11-11-2022 Telephone encounter Yenny Posadas RN Hematology/Oncology Comment on above: Appointment Start: 11-07-2022 Telephone encounter Yenny Posadas RN Hematology/Oncology Comment on above: Research (CTD) Start: 09-09-2022 Refill Kimber Camp APRN.CNP Work Phone: [facility] [place] Comment on above: Refill Request Start: 09-03-2022 Telephone encounter Patrice carter MD Work Phone: Endocrinology Comment on above: Clinical Update Start: 09-02-2022 End: 09-02-2022 Nursing evaluation of patient and report Nurse [facility] Work Phone: General Surgery Comment on above: Cellulitis of chest wall (Primary Dx) Start: 08-31-2022 Refill aNhun Giraldo Work Phone: Hematology/Oncology Comment on above: Refill Request Start: 08-26-2022 End: 08-26-2022 ambulatory [facility] Work Phone: Start: 08-26-2022 End: 08-26-2022 Patient encounter procedure [facility]-Laboratory, Specimen Start: 08-19-2022 End: 08-19-2022 Patient encounter [...] with patient Patrice Palencia MD Work Phone: [facility] Start: 08-14-2022 Nursing evaluation o f patient and report Yenny Posadas RN Hematology/Oncology Comment on above: Examination of parti cipant in clinical trial (Primary Dx) Start: 08-14-2022 Patient encounter procedure Yenny Posadas RN Hematology/Oncology Start: 08-06-2022 ambulatory AKIRA PIERRE Facilit y:[facility] Start: 08-06-2022 End: 08-06-2022 Subsequent hospital visit by physician [facility] Comment on above: Low TSH level [R79.8 9] Start: 08-05-2022 ambulatory PATRICE PALENCIA Facility:[facility] Start: 08-05-2022 End: 08-05-2022 Subsequent hospital visit by physician [facility] Comment on above: Low TSH level [R79.8 9] Start: 07-11-2022 End: 07-11-2022 ambulatory Patrice Palencia MD Work Phone: Endocrinology Comment on above: Thyroid nodule (Prim raymond Dx); Low TSH level; Malignant neoplasm of 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, estrogen receptor positive (HCC) Start: 07-11-2022 End: 07-11-2022 Telemedicine consultation with patient Patrice Palencia MD Work Phone: [facility] Start: 07-01-2022 Telephone encounter Celeste romeo APRN.ACTUARIAL ASSOCIATE Work Phone: Internal Medicine [place] Comment on above: Results Start: 07-01-2022 End: [...] End: 06-26-2022 Subsequent hospital visit by physician [facility] Work Phone: Radiology Comment on above: Nontoxic multinodula r goiter [E04.2] Start: 06-23-2022 Telephone encounter Celeste Mary Jane romeo INFORMATICS NURSE.ACTUARIAL ASSOCIATE Work Phone: Internal Medicine [place] Comment on above: Results Start: 06-20-2022 End: 06-20-2022 Office outpatient visit 25 minutes Celestealeisha Salcedo INFORMATICS NURSE.ACTUARIAL ASSOCIATE Work Phone: Internal Medicine [place] Comment on above: Gastroesophageal ref lux disease, unspecified whether esophagitis present (Primary Dx); Encounter for immunization; Fatigue, unspecified type; Thyroid nodule; Nontoxic multinodular goiter; Invasive ductal carcinoma of breast, right (HCC); Mood disorder (HCC) Start: 06-07-2022 Refill Akira mercado MD Work Phone: Internal Medicine [place] Comment on above: Refill Request Start: 06-04-2022 [...] RN Work Phone: Hematology/Oncology Comment on above: Health Associate - E D Follow Up Start: 05-06-2022 Telephone encounter Fabiola velazquez RN Work Phone: Hematology/Oncology Comment on above: Care Coordination (P ain) Start: 05-06-2022 End: 05-06-2022 Emergency department patient visit [facility] Start: 05-05-2022 End: 05-05-2022 ambulatory Treatment Rm 11 Josiah [facility] Work Phone: Hematology/Oncology Comment on above: Invasive ductal carc inoma of breast, right (HCC) (Primary Dx) Start: 04-25-2022 End: 04-25-2022 Subsequent hospital visit by physician Diagnostic Mammo [facility] Comment on above: Abnormal mammogram [ R92.8] Start: 04-23-2022 End: 04-23-2022 Orders Only Amaya Bravo DO Work Phone: [facility] Comment on above: Abnormal mammogram ( Primary Dx); Personal history of breast cancer Abnormal mammogram ( Primary Dx); Invasive ductal carcinoma of breast, right (HCC) Start: 04-21-2022 End: 04-21-2022 Subsequent hospital visit by physician Screen Mammo [facility] Comment on above: Screening [...] Akira Pierre MD Work Phone: Internal Medicine [place] Start: 12-20-2021 End: 12-20-2021 Periodic preventive med est patient 40-64yrs Akira Pierre MD Work Phone: Internal Medicine [place] Comment on above: Routine medical exam (Primary Dx); Back pain with radiation; Pelvic pain in female Start: 12-02-2021 Telephone encounter Yenny Posadas RN Hematology/Oncology Comment on above: Patient Update Start: 11-25-2021 Chart abstracting Yenny Posadas RN Hematology/Oncology Comment on above: Clinical Trial Draw - [id number] Start: 11-22-2021 Telephone encounter Rupa G florecita [facility] Work Phone: [facility] Comment on above: Results (Genetic marcio [...] patient Caitlin Suarez MD Work Phone: [facility] Start: 11-07-2021 End: 11-07-2021 ambulatory Thu Cisneros OTR/L Work Phone: [facility] Occupational Therapy Comment on above: 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, estrogen receptor positive (HCC); Other chest pain Start: 11-04-2021 End: 11-04-2021 Patient encounter procedure Rupa Chacon [facility] Work Phone: [facility] Comment on above: Family history of ca ncer (Primary Dx); Screening mammogram, encounter for; Family history of breast cancer; Malignant neoplasm of 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, estrogen receptor positive (HCC); Family history of colon cancer Start: 10-30-2021 End: 10-30-2021 Subsequent hospital visit by physician Bone Density [facility] Work Phone: Radiology Comment on [...] Orders Only Amaya Bravo DO Work Phone: [facility] Comment on above: 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, estrogen receptor positive (HCC) (Primary Dx) Start: 10-07-2021 End: 10-07-2021 Subsequent hospital visit by physician Amaya Bravo DO Work Phone: Ambulatory Surgery Comment on above: Invasive ductal carc inoma of breast, right (HCC) [C50.911] Start: 10-04-2021 End: 10-04-2021 PAT [facility] [place] 1 Work Phone: Pre Anesthesia Comment on [...] Start: 10-04-2021 End: 10-04-2021 Preprocedural examination done [facility] [place] 1 Work Phone: Pre Anesthesia Start: 10-02-2021 End: 10-02-2021 Subsequent hospital visit by physician Procedure Mammo [facility] Start: 10-02-2021 ambulatory Maria De Jesus eaton LPN Work Phone: [facility] Comment on above: Patient Education (R IGHT breast 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 coin dealer localized lumpectomy, RIGHT sentinel lymph node mapping and biopsy ) Start: 09-26-2021 End: 09-26-2021 ambulatory Amaya Bravo DO Work Phone: [facility] Comment on above: Malignant neoplasm o [...] encounter procedure Caitlin Suarez MD Work Phone: [facility] Start: 09-10-2021 Telephone encounter Maria De Jesus malloy LPN Work Phone: [facility] Comment on above: Health Associate - O ther Start: 08-27-2021 End: 08-27-2021 Patient encounter procedure Quinton Myers MD Work Phone: General Surgery Comment on above: Malignant neoplasm o f upper-outer quadrant of right breast in female, estrogen receptor positive (HCC) (Primary Dx) Start: 08-01-2021 ambulatory Lourdes cool MD Work Phone: [facility] Comment on above: Radiology Mammogram Start: 08-01-2021 Patient encounter procedure Lourdes Gruber MD Work Phone: [facility] Start: 07-26-2021 Telephone encounter Quinton beltran [...] Akira mercado MD Work Phone: Internal Medicine [place] Comment on above: Refill Request Start: 07-17-2021 End: 07-17-2021 Subsequent hospital visit by physician Diagnostic Mammo [facility] Comment on above: Abnormal [...] Akira mercado MD Work Phone: Internal Medicine [place] Comment on above: Question regarding C BC Start: 06-07-2021 End: 06-07-2021 ambulatory Akira Pierre MD Work Phone: Internal Medicine [place] Comment on above: Dysthymia (Primary D x); [...] digital br east tomosynthesis bi Stephanie Crawford INFORMATICS NURSE.RESIDENTIAL SALES REPRESENTATIVE Work Phone: Start: 01-12-2024 Adult depression scr [...] neck real time imge docm Celeste Baldwins INFORMATICS NURSE.ACTUARIAL ASSOCIATE Work Phone: Start: 05-06-2022 CT angiography of [...] DTaP,Tdap,Td Vaccine (3 - Td or Tdap) [facility] Start: 11-21-2026 Lipid 1996 panel - Serum or Plasma Lipid Screening [facility] Start: 11-21-2026 Lipid panel Lipid Screening [facility] Start: 11-21-2026 LIPID SCREEN LIPID SCREEN [facility] Start: 07-01-2026 HPV TESTING HPV TESTING [facility] Start: 07-01-2026 PAP TESTING PAP TESTING [facility] Start: 07-01-2026 Screening for malignant neoplasm of cervix [facility] Start: 06-17-2026 LIPID SCREEN LIPID SCREEN [facility] Start: 10-15-2025 DIABETES SCREEN DIABETES SCREEN [facility] Start: 10-15-2025 Diabetes Screening Diabetes Screening [facility] Start: 06-20-2025 DIABETES SCREEN DIABETES SCREEN [facility] Start: 05-05-2025 DIABETES SCREEN DIABETES SCREEN [facility] Start: 04-22-2025 Screening for malignant neoplasm of breast Mammogram Screening [facility] Start: 02-10-2025 End: 02-10-2025 Patient encounter procedure 02/10/2025 8:00 AM EST Office Visit Internal Medicine [place] [address] [place] [address] Akira Pierre MD [address] [place] [address] Yearly Exam and follow up [facility] Medicine [place] Comment on above: Yearly Exam and follow up Start: 01-30-2025 Colonoscopy COLONOSCOPY [facility] Start: 01-30-2025 COLORECTAL CANCER SCREENING COLORECTAL CANCER SCREENING [facility] Start: 01-30-2025 Screening for malignant neoplasm of colon [facility] Start: 01-11-2025 Anxiety Screening Anxiety Screening [facility] Start: 01-11-2025 Depression Screening Depression Screening [facility] Start: 01-11-2025 Hepatitis B Vaccine (1 of 3 - 19+ 3-dose series) Hepatitis B Vaccine (1 of 3 - 19+ 3-dose series) [facility] Comment on above: Postponed from 1984 (Declined at t his time) Start: 01-11-2025 Shingrix Vaccine (1 of 2) Shingrix Vaccine (1 of 2) [facility] Comment on above: Postponed from 07/17/2015 (Declined at t his time) Start: 11-25-2024 End: 11-25-2024 ambulatory 11/25/2024 8:00 AM EDT Visit (SP) Office Hematology/Oncology [address] [place] [address] Stephanie Crawford APRN.RESIDENTIAL SALES REPRESENTATIVE [address] [place] [address] 6 MO OV/LAB 11/21* Hematology/Oncology Comment on above: 6 MO OV/LAB 11/21* Start: 11-21-2024 End: 11-21-2024 Patient encounter procedure 11/21/2024 7:00 AM EDT Results Only [place] [facility] [address] [place] [address] LAB - CLINICAL TRIAL DRAW - YENNY TO PROVIDE TUBES [facility] Comment on above: LAB - CLINICAL TRIAL DRAW - YENNY TO P ROVIDE TUBES Start: 06-17-2024 DIABETES SCREEN DIABETES SCREEN [facility] Start: 05-23-2024 End: 05-23-2024 ambulatory 05/23/2024 8:30 AM EDT Visit (SP) Office Hematology/Oncology [address] [place] [address] Stephanie Crawford APRN.RESIDENTIAL SALES REPRESENTATIVE [address] [place] [address] 6 MTH OV* Hematology/Oncology Comment on above: 6 MTH OV* Start: 04-23-2024 Screening for malignant neoplasm of breast Mammogram Screening [facility] Start: 04-22-2024 End: 04-22-2024 Patient encounter procedure 04/22/2024 7:10 AM EST Appointment Mammogram [address] [place] [address] [facility] Mammogram Comment on above: MAMMO [facility] Start: 03-31-2024 End: 03-31-2024 Patient encounter procedure 03/31/2024 4:00 PM EST Office Visit OB/Gynecology [address] [place] [address] Trina Jorgensen MD [address] [place] [address] Annual OB/Gynecology Comment on above: Annual Start: 03-04-2024 Screening for malignant neoplasm of lung Lung Cancer Screening [facility] Start: 02-23-2024 End: 02-23-2024 ambulatory 02/23/2024 8:30 AM EST Visit (SP) Office Hematology/Oncology [address] [place] [address] Aleida Rodriguez [address] [place] [address] 6 MO OV* Hematology/Oncology Comment on above: 6 MO OV* Start: 01-27-2024 End: 01-27-2024 Patient encounter procedure 01/27/2024 4:00 PM EST Office Visit OB/Gynecology [address] [place] [address] Trina Jorgensen MD [address] [place] [address] Annual OB/Gynecology Comment on above: Annual Start: 01-12-2024 End: 01-12-2024 Patient encounter procedure 01/12/2024 5:00 PM EST Office Visit Internal Medicine [place] [address] [place] [address] Akira Pierre MD [address] [facility] [place] [address] Yearly exam and follow up [facility] Medicine [place] Comment on above: Yearly exam and follow up Start: 12-07-2023 End: 12-07-2023 Follow-up encounter 12/07/2023 3:00 PM EDT [facility] [address] [place] [phone] Patrice Palencia MD [address] [place] [address] 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 Endocrinology Comment on above: Nontoxic multinodular goiter - thyroid f ollow up Start: 11-24-2023 End: 11-24-2023 ambulatory 11/24/2023 8:00 AM EDT Visit (SP) Office Hematology/Oncology [address] [place] [address] Stephanie Crawford APRN.RESIDENTIAL SALES REPRESENTATIVE [address] [place] [address] 3 MO OV/ON STUDY* Hematology/Oncology Comment on above: 3 MO OV/ON STUDY* Start: 11-08-2023 Covid-19 Vaccine ( season) Covid-19 Vaccine ( season) [facility] Start: 11-08-2023 Covid-19 Vaccine ( season) Covid-19 Vaccine ( season) [facility] Start: 11-08-2023 Influenza vaccination [facility] Start: 10-16-2023 End: 10-16-2023 Follow-up encounter 10/16/2023 7:20 AM EDT [facility] [address] [place] [address] Patrice Palencia MD [address] [facility] [place] [address] 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 Endocrinology Comment on above: Nontoxic multinodular goiter - thyroid f ollow up Start: 09-06-2023 Influenza vaccination Influenza Vaccine (#1) Javier Benson herrera Comment on above: Postponed from 11/07/2022 (Declined at t his time) Start: 08-24-2023 End: 08-24-2023 ambulatory 08/24/2023 3:50 PM EDT Visit (SP) Office Hematology/Oncology [address] [place], [place] [id number] Nahun Zavaleta DO [address] [place], [place] [id number] 3MO OV* Hematology/Oncology Comment on above: 3MO OV* Start: 08-15-2023 End: 11-14-2023 Thyrotropin [Units/volume] in Serum or Plasma TSH BLD Lab Routine Nontoxic multinodular goiter Expected: 08/15/2023, Expires: 11/14/2023 [facility] Work Phone: Comment on above: Expected: 08/15/2023, Expires: Start: 08-15-2023 End: 11-14-2023 Thyroxine (T4) free [Mass/volume] in Serum or Plasma T4 FREE/FREE THYROX Lab Routine Nontoxic multinodular goiter Expected: 08/15/2023, Expires: 11/14/2023 [facility] Work Phone: Comment on above: Expected: 08/15/2023, Expires: Start: 04-21-[address] [facility] Start: 03-09-2023 Behavioral Health Screening Behavioral Health Screening [facility] Start: 03-09-2023 Depression Assessment Depression Assessment [facility] Start: 02-14-2023 End: 04-16-2023 Thyrotropin [Units/volume] in Serum or Plasma TSH BLD Lab Routine Nontoxic multinodular goiter Expected: 02/14/2023, Expires: 04/16/2023 [facility] Work Phone: Comment on above: Expected: 02/14/2023, Expires: Start: 02-14-2023 End: 04-16-2023 Thyroxine (T4) free [Mass/volume] in Serum or Plasma T4 FREE/FREE THYROX Lab Routine Nontoxic multinodular goiter Expected: 02/14/2023, Expires: 04/16/2023 [facility] Work Phone: Comment on above: Expected: 02/14/2023, Expires: Start: 12-20-2022 HEPATITIS B (1 of 3 - 3-dose series) HEPATITIS B (1 of 3 - 3-dose series) [facility] Comment on above: Postponed from 1965 (Declined at t his time) Start: 12-20-2022 Hepatitis B Vaccine (1 of 3 - 3-dose series) Hepatitis B Vaccine (1 of 3 - 3-dose series) [facility] Comment on above: Postponed from 1965 (Declined at t his time) Start: 12-20-2022 Influenza vaccination LUNG CANCER SCREENING [facility] Comment on above: Postponed from 07/17/2015 (Declined at t his time) Start: 11-07-2022 Covid-19 Vaccine ( season) Covid-19 Vaccine ( season) [facility] Start: 11-07-2022 Influenza vaccination [facility] Start: 10-23-2022 Adult depression screening assessment DEPRESSION SCREENING [facility] Start: 10-15-2022 End: 12-15-2022 Thyrotropin [Units/volume] in Serum or Plasma TSH BLD Lab Routine Low TSH level Expected: 10/15/2022, Expires: 12/15/2022 [facility] Work Phone: Comment on above: Expected: 10/15/2022, Expires: 3 Start: 10-15-2022 End: 12-15-2022 Thyroxine (T4) free [Mass/volume] in Serum or Plasma T4 FREE/FREE THYROX Lab Routine Low TSH level Expected: 10/15/2022, Expires: 12/15/2022 [facility] Work Phone: Comment on above: Expected: 10/15/2022, Expires: 3 Start: 10-15-2022 End: 12-15-2022 Triiodothyronine (T3) Free [Mass/volume] in Serum or Plasma T3 FREE BLD Lab Routine Low TSH level Expected: 10/15/2022, Expires: 12/15/2022 [facility] Work Phone: Comment on above: Expected: 10/15/2022, Expires: 3 Start: 10-02-2022 Mammography MAMMOGRAM [facility] Start: 06-23-2022 End: 08-23-2022 THYROID PEROXIDASE ANTIBODY BLOOD [facility] Work Phone: Comment on above: Expected: 06/23/2022, Expires: 3 Start: 06-23-2022 End: 08-23-2022 Thyroxine (T4) free [Mass/volume] in Serum or Plasma [facility] Work Phone: Comment on above: Expected: 06/23/2022, Expires: 3 Start: 06-23-2022 End: 08-23-2022 Triiodothyronine (T3) Free [Mass/volume] in Serum or Plasma [facility] Work Phone: Comment on above: Expected: 06/23/2022, Expires: 3 Start: 06-07-2022 SHINGRIX VACCINE (1 of 2) SHINGRIX VACCINE (1 of 2) [facility] Comment on above: Postponed from 07/17/2015 (Declined at t his time) Start: 06-07-2022 Urine microalbumin profile DTAP,TDAP,TD (2 - Td or Tdap) [facility] Comment on above: Postponed from 10/13/2018 (Declined at t his time) Start: 06-06-2022 Adult depression screening assessment DEPRESSION SCREENING [facility] Start: 05-06-2022 [facility] Start: 03-09-2022 DEPRESSION ASSESSMENT DEPRESSION ASSESSMENT [facility] Start: 02-12-2022 End: 04-14-2022 25-hydroxyvitamin D3 [Mass/volume] in Serum or Plasma [facility] Work Phone: Comment on above: Expected: 02/12/2022, Expires: 3 Start: 12-04-2021 COVID-19 VACCINE (5 - Booster for Pfizer series) COVID-19 VACCINE (5 - Booster for Pfizer series) [facility] Start: 11-07-2021 Influenza vaccination [facility] Start: 11-04-2021 End: 01-04-2022 MISC SEND OUT TST 1 MISC SEND OUT TST 1 Lab Routine Family history of breast cancer Malignant neoplasm of 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, estrogen receptor positive (HCC) Family history of cancer Family history of colon cancer Expected: 11/04/2021, Expires: 01/04/2022 [facility] Work Phone: Comment on above: Expected: 11/04/2021, Expires: 2 Start: 10-16-2021 Mammography MAMMOGRAM [facility] Start: 10-10-2021 End: 10-26-2022 Dxa bone density study 1/> sites axial skel DXA-AXIAL SKELETON Radiology Routine Encounter for screening for osteoporosis Asymptomatic postmenopausal status Expected: 10/10/2021, Expires: 10/26/2022 [facility] Work Phone: Comment on above: Expected: 10/10/2021, Expires: 3 Start: 06-07-2021 End: 08-07-2021 CBC panel - Blood by Automated count CBC Lab Routine Encounter for long-term current use of medication Expected: 06/07/2021, Expires: 08/07/2021 [facility] Work Phone: Comment on above: Expected: 06/07/2021, Expires: 2 Start: 06-07-2021 End: 08-07-2021 Comprehensive metabolic 2000 panel - Serum or Plasma COMP METABOLIC PANEL Lab Routine Encounter for long-term current use of medication Expected: 06/07/2021, Expires: 08/07/2021 [facility] Work Phone: Comment on above: Expected: 06/07/2021, Expires: 2 Start: 06-07-2021 End: 08-07-2021 Hepatitis C virus Ab [Presence] in Serum HEP C AB IA W/CONF SCRN Lab Routine Need for hepatitis C screening test Expected: 06/07/2021, Expires: 08/07/2021 [facility] Work Phone: Comment on above: Expected: 06/07/2021, Expires: 2 Start: 06-07-2021 End: 08-07-2021 HIV 1+2 Ab [Presence] in Serum or Plasma by Immunoassay HIV 1 2 COMBO(AG/AB),WITH REFLEX TO DIFFERENTIATION Lab Routine Encounter for screening for HIV Expected: 06/07/2021, Expires: 08/07/2021 [facility] Work Phone: Comment on above: Expected: 06/07/2021, Expires: 2 Start: 06-07-2021 End: 08-07-2021 LIPID PANEL BASIC LIPID PANEL BASIC Lab Routine Screening, lipid Expected: 06/07/2021, Expires: 08/07/2021 [facility] Work Phone: Comment on above: Expected: 06/07/2021, Expires: 2 Start: 06-07-2021 End: 08-07-2021 T3 FREE BLD T3 FREE BLD Lab Routine Nontoxic multinodular goiter Dysthymia Expected: 06/07/2021, Expires: 08/07/2021 [facility] Work Phone: Comment on above: Expected: 06/07/2021, Expires: 2 Start: 06-07-2021 End: 08-07-2021 T4 FREE/FREE THYROX T4 FREE/FREE THYROX Lab Routine Nontoxic multinodular goiter Dysthymia Expected: 06/07/2021, Expires: 08/07/2021 [facility] Work Phone: Comment on above: Expected: 06/07/2021, Expires: 2 Start: 06-07-2021 End: 08-07-2021 Thyrotropin [Units/volume] in Serum or Plasma TSH BLD Lab Routine Nontoxic multinodular goiter Dysthymia Expected: 06/07/2021, Expires: 08/07/2021 [facility] Work Phone: Comment on above: Expected: 06/07/2021, Expires: 2 Start: 05-30-2021 COVID-19 VACCINE (4 - Booster for Pfizer series) COVID-19 VACCINE (4 - Booster for Pfizer series) [facility] Start: 03-09-2021 DEPRESSION ASSESSMENT DEPRESSION ASSESSMENT [facility] Start: 11-07-2020 Influenza vaccination INFLUENZA (#1) [facility] Start: 08-19-2020 COVID-19 VACCINE (3 - Booster for Pfizer series) COVID-19 VACCINE (3 - Booster for Pfizer series) [facility] Start: 05-11-2020 Adult depression screening assessment DEPRESSION SCREENING [facility] Start: 05-16-2019 HPV TESTING HPV TESTING [facility] Start: 05-16-2019 PAP TESTING PAP TESTING [facility] Start: 10-13-2018 Urine microalbumin profile [facility] Start: 08-12-2018 DIABETES SCREEN DIABETES SCREEN [facility] Start: 07-13-2018 LIPID SCREEN LIPID SCREEN [facility] Start: 07-17-2015 Influenza vaccination LUNG CANCER SCREENING [facility] Start: 07-17-2015 Pneumococcal Vaccine: 50+ (1 of 1 - PCV) Pneumococcal Vaccine: 50+ (1 of 1 - PCV) [facility] Start: 07-17-2015 SHINGRIX VACCINE (1 of 2) SHINGRIX VACCINE (1 of 2) [facility] Start: 2010 COLOGUARD (FIT-DNA) COLOGUARD (FIT-DNA) [facility] Start: [address] COLONOGRAPHY [facility] Start: 2010 FECAL OCCULT BLOOD FECAL OCCULT BLOOD [facility] Start: 2010 Screening for malignant neoplasm of colon [facility] Start: 2010 SIGMOIDOSCOPY SIGMOIDOSCOPY [facility] Start: 1984 Hepatitis B Vaccine (1 of 3 - 19+ 3-dose series) Hepatitis B Vaccine (1 of 3 - 19+ 3-dose series) [facility] Start: 07-17-1983 Anxiety Screening Anxiety Screening [facility] Start: 07-17-1983 Depression Screening Depression Screening [facility] Start: 07-17-1983 HEPATITIS C SCREENING HEPATITIS C SCREENING [facility] Start: 07-17-1983 HIV SCREENING HIV SCREENING [facility] Start: 1965 HEPATITIS B (1 of 3 - 3-dose series) HEPATITIS B (1 of 3 - 3-dose series) [facility] Start: 1965 Hepatitis B Vaccine (1 of 3 - 3-dose series) Hepatitis B Vaccine (1 of 3 - 3-dose series) [facility] End: 03-18-2023 Basic metabolic 2000 panel - Serum or Plasma BASIC METABOLIC PNL Lab STAT Malignant neoplasm of 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, estrogen receptor positive (HCC) Vitamin D deficiency Every 6 months for 2 Occurrences starting 03/18/2022 until 03/18/2023 [facility] Work Phone: Comment on above: Every 6 months for 2 Occurrences startin g 03/18/2022 until 03/18/2023 End: 08-25-2022 Bx breast w/device 1st lesion ultrasound guid US BIOPSY BREAST RT Radiology Routine Abnormal mammogram 1 Occurrences starting 07/26/2021 until 08/25/2022 [facility] Work Phone: Comment on above: 1 Occurrences starting 07/26/2021 until 08/25/2022 Bx/exc lymph node op en deep axillary node BX/REMV,LYMPH NODE,DEEP AXILL Procedures Routine Invasive ductal carcinoma of breast, 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, estrogen receptor positive (HCC) Ordered: 09/26/2021 [facility] Work Phone: Comment on above: Ordered: 09/26/2021 End: 06-20-2024 CT Abdomen and Pelvis W contrast IV CT ABD/PEL W IVCON Radiology STAT Hiatal hernia with GERD Other specified intestinal obstruction, unspecified whether partial or complete (HCC) Nausea Malignant neoplasm of 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, estrogen receptor positive (HCC) 1 Occurrences starting 05/22/2023 until 06/20/2024 [facility] Work Phone: Comment on above: 1 Occurrences starting 05/22/2023 until 06/20/2024 End: 12-23-2024 DBT Breast - bilateral screening HARSH SCREENING W YANE Radiology Routine Malignant neoplasm of 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, estrogen receptor positive (HCC) Examination of participant in clinical trial Encounter for screening mammogram for high-risk patient 1 Occurrences starting 11/24/2023 until 12/23/2024 [facility] Work Phone: Comment on above: 1 Occurrences starting 11/24/2023 until 12/23/2024 End: 07-07-2022 Diagnostic mammography computer-aided detcj uni HARSH DIAGNOSTIC RT Radiology Routine Abnormal mammogram 1 Occurrences starting 06/07/2021 until 07/07/2022 [facility] Work Phone: Comment on above: 1 Occurrences starting 06/07/2021 until 07/07/2022 End: 05-23-2023 Diagnostic mammography computer-aided detcj uni HARSH DIAGNOSTIC RT Radiology Routine Abnormal mammogram Personal history of breast cancer 1 Occurrences starting 04/23/2022 until 05/23/2023 [facility] Work Phone: Comment on above: 1 Occurrences starting 04/23/2022 until 05/23/2023 Exc breast les preop plmt rad marker open 1 les EXCIS BREAST LES W XRAY MARKER Procedures Routine Invasive ductal carcinoma of breast, 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, estrogen receptor positive (HCC) Ordered: 09/26/2021 [facility] Work Phone: Comment on above: Ordered: 09/26/2021 Hzv zoster vacc recombinant adjuvanted im njx ZOSTER VACCINE, RECOMBINANT (SHINGRIX) Immunization/Injection Routine Encounter for immunization Ordered: 06/20/2022 [facility] Work Phone: Comment on above: Ordered: 06/20/2022 Inj radioactive trac er for id of sentinel node IDENTIFY SENTINEL NODE Procedures Routine Invasive ductal carcinoma of breast, 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, estrogen receptor positive (HCC) Ordered: 09/26/2021 [facility] Work Phone: Comment on above: Ordered: 09/26/2021 End: 10-27-2022 Inj radioactive tracer for id of sentinel node NM INJ SENTINEL NODE BREAST RT Radiology Routine Invasive ductal carcinoma of breast, 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, estrogen receptor positive (HCC) 1 Occurrences starting 09/26/2021 until 10/27/2022 [facility] Work Phone: Comment on above: 1 Occurrences starting 09/26/2021 until 10/27/2022 End: 10-26-2022 HARSH SCREENING W YANE HARSH SCREENING W YANE Radiology Routine Screening mammogram, encounter for 1 Occurrences starting 09/26/2021 until 10/26/2022 [facility] Work Phone: Comment on above: 1 Occurrences starting 09/26/2021 until 10/26/2022 Mastectomy partial MASTECTOMY, P ARTIAL Procedures Routine Invasive ductal carcinoma of breast, 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, estrogen receptor positive (HCC) Ordered: 09/26/2021 [facility] Work Phone: Comment on above: Ordered: 09/26/2021 MR Abdomen WO and W contrast IV [facility] PAP FLUID CERVICAL SCREENING PAP FLUID CERVICAL SCREENING Lab Routine Encounter for gynecological examination (general) (routine) without abnormal findings Encounter for screening mammogram for breast cancer 07/01/2021 10:11 AM EDT [facility] Work Phone: Patient Education Zometa Injecti on 4 mg/5 mL Taking Opioid Medicines [facility] Work Phone: Patient referral [facility] Work Phone: End: 10-26-2022 Perq device placement breast loc 1st les w/gdnce HARSH NDL LOC W HARSH GD RT Radiology Routine Invasive ductal carcinoma of breast, 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, estrogen receptor positive (HCC) 1 Occurrences starting 09/26/2021 until 10/26/2022 [facility] Work Phone: Comment on above: 1 Occurrences starting 09/26/2021 until 10/26/2022 PT ED [facility] PT ED [facility] Other 09/26/2021 [facility] Work Phone: PT education noc individ PT EDUC ATION NOC INDIVID Procedures Routine Invasive ductal carcinoma of breast, 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, estrogen receptor positive (HCC) Ordered: 09/26/2021 [facility] Work Phone: Comment on above: Ordered: 09/26/2021 SURGICAL PATHOLOGY [facility] Work Phone: Comment on above: Release Upon Ordering for 1 Occurrences starting 10/07/2021, 1 completed Tdap vaccine 7 yrs/> im TDAP VAC CINE, AGE 7+ YR (ADACEL, BOOSTRIX) Immunization/Injection Routine Encounter for immunization Ordered: 06/20/2022 [facility] Work Phone: Comment on above: Ordered: 06/20/2022 End: 08-10-2023 Thyroid uptake w/blood flow sngle/mult letty fawad NM THY UPTAKE AND SCAN Radiology Routine Low TSH level Thyroid nodule 1 Occurrences starting 07/11/2022 until 08/10/2023 [facility] Work Phone: Comment on above: 1 Occurrences starting 07/11/2022 until 08/10/2023 End: 08-05-2022 Thyroid uptake w/blood flow sngle/mult letty fawad [facility] Work Phone: Comment on above: 1 Occurrences starting 08/05/2022 until 08/05/2022 US BREAST BIOPSY RIG HT (POC) SURG USE ONLY US BREAST BIOPSY RIGHT (POC) SURG USE ONLY Imaging Procedures Routine Abnormal mammogram Ordered: 07/26/2021 [facility] Work Phone: Comment on above: Ordered: 07/26/2021 End: 07-07-2022 Us breast uni real time with image limited US BREAST LTD RT Radiology Routine Abnormal mammogram 1 Occurrences starting 06/07/2021 until 07/07/2022 [facility] Work Phone: Comment on above: 1 Occurrences starting 06/07/2021 until 07/07/2022 End: 05-22-2023 Us breast uni real time with image limited US BREAST LTD RT Radiology Routine Abnormal mammogram Personal history of breast cancer 1 Occurrences starting 04/23/2022 until 05/22/2023 [facility] Work Phone: Comment on above: 1 Occurrences starting 04/23/2022 until 05/22/2023 End: 07-20-2023 Us soft tissue head & neck real time imge docm US THYROID/PARATHYROID Radiology Routine Nontoxic multinodular goiter 1 Occurrences starting 06/20/2022 until 07/20/2023 [facility] Work Phone: Comment on above: 1 Occurrences starting 06/20/2022 until 07/20/2023 End: 01-14-2024 Us soft tissue head & neck real time imge docm US THYROID/PARATHYROID Radiology Routine Nontoxic multinodular goiter 1 Occurrences starting 12/15/2022 until 01/14/2024 [facility] Work Phone: Comment on above: 1 Occurrences starting 12/15/2022 until 01/14/2024 [facility] Immunizations Immunization Date Immunization Notes Care Provider Fa [facility] 01-08-2024 measles, mumps and rubella virus vaccine Akira Pierre MD Work Phone: [facility] 12-08-2023 measles, mumps and rubella virus vaccine Akira Pierre MD Work Phone: [facility] 12-08-2023 tetanus toxoid, reduced diphtheria toxoid, and acellular pertussis vaccine, adsorbed Akira Pierre MD Work Phone: [facility] 12-01-2023 influenza, seasonal, injectable, preservative free Akira Pierre MD Work Phone: [facility] 01-01-2022 Covid Pfizer Bivalen t Booster Dr. Akira Pierre MD Work Phone: [facility] 12-13-2021 influenza virus vaccine, unspecified formulation Nahun Zavaleta DO Work Phone: [facility] 12-12-2021 influenza, injectabl e, quadrivalent, contains preservative kAira Pierre MD Work Phone: [facility] 12-12-2021 influenza virus vaccine, unspecified formulation Screen Wstr [facility] 10-09-2021 Covid (Pfizer) Dr. Akira barnhart MD Work Phone: [facility] 01-30-2021 COVID-19 vaccine, ag e 12+ yr (PFIZER-BIONTECH - PURPLE TOP) Akira Pierre MD Work Phone: [facility] Work Phone: 03-21-2020 Covid (Pfizer) Dr. Akira barnhart MD Work Phone: [facility] 02-29-2020 Covid (Pfizer) Dr. Akira barnhart MD Work Phone: [facility] 12-21-2018 influenza, seasonal, injectable Akira Pierre MD Work Phone: [facility] 12-23-2017 influenza virus vaccine, unspecified formulation Akira Pierre MD Work Phone: [facility] 12-14-2011 influenza virus vaccine, unspecified formulation Akira Pierre MD Work Phone: [facility] 10-13-2008 tetanus toxoid, reduced diphtheria toxoid, and acellular pertussis vaccine, adsorbed Akiar Pierre MD Work Phone: [facility] NEGATED: Highlighted row has not occurred!06-20-2022 tetanus toxoid, reduced diphtheria toxoid, and acellular pertussis vaccine, adsorbed Celeste Salcedo INFORMATICS NURSE.ACTUARIAL ASSOCIATE Work Phone: [facility] Work Phone: Comment on above: Deferred: Postponed NEGATED: Highlighted row has not occurred!06-20-2022 zoster vaccine recombinant Celeste Salcedo INFORMATICS NURSE.ACTUARIAL ASSOCIATE Work Phone: [facility] Work Phone: Comment on above: Deferred: Postponed Payers Date Payer Category Payer Private Health Insurance [id number] 2023 Self-pay [id number] 2023 Private Health Insurance [id number] 2017 Private Health Insurance AETNA A ETNA CHOICE POS II [id number] 2017-Present [phone] [address] [place] [address] POS [id number] 2017 Private Health Insurance [id number] 2017 Private Health Insurance [id number] Unknown [id number] Unknown [id number] Unknown [id number] Unknown [id number] Unknown [id number] Social History Date Type Detail Facility Start: 08-15-2015 End: 08-11-2024 Tobacco smoking status NHIS Ex-smoker [facility] Start: 08-04-1983 End: 08-07-2015 History of tobacco use Current smoker [facility] Start: 08-15-2015 End: 07-11-2022 Cigarettes smoked current (pack per day) - Reported 1 [facility] Start: 08-15-2015 End: 10-15-2021 Tobacco use and exposure Smokeless tobacco non-user [facility] Start: 07-26-2020 Alcohol intake Current non-drinker of alcohol (finding) [facility] Start: 01-31-2020 End: 06-17-2022 History SDOH Alcohol Frequency 2 [facility] Start: 01-31-2020 End: 06-17-2022 History SDOH Alcohol Std Drinks 1 [facility] Start: 05-12-2019 End: 06-17-2022 History SDOH Social Connections Phone 3 [facility] Start: 05-12-2019 History SDOH Physical Activity DPW 0 [facility] Start: 05-12-2019 History SDOH Financial 5 [facility] Start: 05-12-2019 Education 15 [facility] Start: 1965 Sex Assigned At Female [facility] Start: 06-06-2021 End: 06-17-2022 History SDOH Social Connections Meetings 98 [facility] Start: 06-06-2021 End: 06-17-2022 History SDOH Financial 4 [facility] Start: 05-31-2021 End: 12-20-2021 Exposure to SARS-CoV-2 (event) Not sure [facility] Start: 06-26-2021 End: 05-23-2024 Alcohol intake Current drinker of alcohol (finding) [facility] Start: 06-26-2021 History SDOH Alcohol Comment social [facility] Start: 07-22-2021 End: 08-01-2021 Exposure to SARS-CoV-2 (event) Unable to assess [facility] Start: 09-16-2021 End: 09-26-2021 Exposure to SARS-CoV-2 (event) Yes [facility] Start: 08-04-1983 End: 08-07-2015 History of tobacco use Cigarette Smoker [facility] Start: 10-04-2021 History SDOH Alcohol Comment Not weekly [facility] Start: 05-06-2022 End: 05-06-2022 Tobacco smoking status PAIS Unknown if ever smoked [facility] Start: 06-16-2022 End: 07-11-2022 Social connection and isolation panel [facility] How often do you att end pentecostalism or mormon services? Patient refused [facility] Do you belong to any clubs or organizations such as pentecostalism groups, unions, fraternal or athletic groups, or school groups? No [facility] Are you now , , , , never or living with a partner? [facility] How often to you hav e a drink containing alcohol? Monthly or less [facility] How many standard dr inks containing alcohol do you have on a typical day? 1 or 2 [facility] How often do you hav e 6 or more drinks on 1 occasion? Never [facility] How hard is it for y ou to pay for the very basics like food, housing, medical care, and heating Somewhat hard [facility] Do you feel stress - tense, restless, nervous, or anxious, or unable to sleep at night because your mind is troubled all the time - these days [OSQ] To some extent [facility] (I/We) worried dimitri er (my/our) food would run out before (I/we) got money to buy more. Never true [facility] Start: 01-15-2020 Gender identity Identifies as female gender (finding) [facility] Start: 01-15-2020 Sexual orientation Heterosexual (finding) [facility] How hard is it for y ou to pay for the very basics like food, housing, medical care, and heating Not very hard [facility] Medical Equipment Procedure Code Equipment Code Equipment Origin al Text Equipment Identifier Dates Gregory Reflector [id number] Start: 10-02-2021 Mesh Surgical Parietene Ds 12cm Round - [id number] Start: 06-11-2023 Functional Status Date Assessment Result Facility 06-26-2014 Are you deaf, or do you have serious difficulty hearing No 06/26/2014 11:49 AM Any [facility]ete [facility] 06-26-2014 Are you blind, or do you have serious difficulty seeing, even when wearing glasses No 06/26/2014 11:49 AM Any [facility] 06-26-2014 Do you have serious difficulty walking or climbing stairs No 06/26/2014 11:49 AM Any [facility] 06-26-2014 Do you have difficul ty dressing or bathing No 06/26/2014 11:49 AM Any [facility] 06-26-2014 Because of a physica l, mental, or emotional condition, do you have difficulty doing errands alone such as visiting a physician's office or shopping No 06/26/2014 11:49 AM Any [facility] Mental Status Date Assessment Result Facility 05-06-2022 Cognitive function Voice/Name [facility] Work Phone: 06-26-2014 Because of a physica l, mental, or emotional condition, do you have serious difficulty concentrating, remembering, or making decisions No 06/26/2014 11:49 AM Any [facility]ete [facility] Clinical Notes 12-16-2011 to 08-12-2024 Note Date & Type Note Facility 08-12-2024 Radiology Diagnostic study note [facility] Imaging Services [address] [place] [address] Abdomen Limited MR#: [id number] Acct: [id number] Name: REBECA WILSON Rep #: [id number] : 1965 F 59 From: Nava Goldberg MD PCP: Dr. Akira Pierre MD Status: RE G CLI Study:Abdomen Limited Date of Exam: 08/31 Exam# [id number] Ordering Dr: Maria De Jesus Heath PROCEDURE: [...] 2. Hepatic steatosis and hepatomegaly. Reading Location: [id number] CC: CAMPOS Heath; Dr. Akira Pierre MD ~ Group Account Director: Signed [facility] 08-10-2024 Evaluation note Diagnosis Onset Date Resolution Bloating acute August 10, 2024 4:47pm Epigastric fullness acute August 10, 2024 4:47pm [facility] Work Phone: 1(945) 554-790903-17-2025 Telephone encounter Note* Telephone Encounter - Stefany Beckford - 05/23/2024 12:32 PM EDT Patient schedule lab for 11/21 [facility] Work Phone: 1(890) 136-872103-17-2025 Miscellaneous Notes* Telephone Encounter - Stefany Beckford - 05/23/2024 12:32 PM EDT Patient schedule lab for 11/21 * Telephone Encounter - Emely Chadwick - 05/23/2024 10:53 AM EDT LVM for pt to call back and schedule lab appt before 11/25 appt. Emely Chadwick documented in this encounterWadsworth[facility]03-[facility] Telephone encounter Note * Telephone Encounter - Emely Chadwick - 05/23/2024 10:53 AM EDT LVM for pt to call back and schedule lab appt before 11/25 appt. Emely Chadwick [facility]03-17-2025 NoteHNO ID: [id number] Author: YENNY POSADAS RN Service: ? Author [...] Treatment Arm: HT - TA2 Study ID [id number] Consent to optional samples Yes Staging/Diagnosis pT1b pN0(sn) M0 ER/NH positive, HER2 negative stage IA Study Status Follow Up Current Treatment Plan: Treatment Dose Start Date Frequency End date exemestane (AROMASIN) 25/mg 11/25/2021 Daily Clinical Trial Specific Testing Test Dates Completed Due Date Mammogram Scan 04/22/202404/2025 Clinical Trial Draw 11/17/202211/2024 Year 3 QOLs 11/2023 QOLS were completed in [facility] via [facility] 11/2024 Baseline Weight 89.8 (11/15/2021) 95.7 Creatinine [...] On-Call number for the On-Call Oncology Fellow ([phone]). DANA Bond, RN Clinical Research Nurse [phone]03-[facility] History of Present illness Narrative* Yenny [...] Treatment Arm: HT - TA2 Study ID [id number] Consent to optional samples Yes Staging/Diagnosis pT1b pN0(sn) M0 ER/NH positive, HER2 negative stage IA Study Status Follow Up Current Treatment Plan: Treatment Dose Start Date Frequency End date exemestane (AROMASIN) 25/mg 11/25/2021 Daily Clinical Trial Specific Testing Test Dates Completed Due Date Mammogram Scan 04/22/202404/2025 Clinical Trial Draw 11/17/202211/2024 Year 3 QOLs 11/2023 QOLS were completed in [place] via [facility] 11/2024 Baseline Weight 89.8 (11/15/2021) 95.7 Creatinine [...] On-Call number for the On-Call Oncology Fellow ([phone]). DANA Bond, RN Clinical Research Nurse [phone] documented in this encounterWadsworth-R[facility]man [facility]03-17-2025 NoteHNO ID: [id number] Author: STEPHANIE CRAWFORD APRN.RESIDENTIAL SALES REPRESENTATIVE Service: ? Author Type: Nurse Practitioner Type: [...] ER +91 to 100%, strong staining intensity. NH positive, 81 to 90%, strong staining intensity HER2 negative, 1+ on IHC. Patient underwent a right breast GREGORY Oncology Account Specialist localized lumpectomy, right sentinel lymph node mapping [...] Biopsy site changes, biopsy clip, and GREGORY coin dealer identified - The surrounding breast parenchyma shows [...] V86.0, ICD10: C50.211, Z17.0 pT1b pN0(sn) M0 ER/NH positive, HER2 negative stage IA infiltrating ductal carcinoma of the right breast. Per Dr. 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 -Oncotype DX recurrence score 10 indicating 9-year risk of distant recurrence (more content not included)...[facility]03-17-2025 History of Present illness Narrative* Stephanie Crawford APRN.RESIDENTIAL SALES REPRESENTATIVE - 05/23/2024 8:39 AM EDT Chief Complaint [...] ER +91 to 100%, strong staining intensity. NH positive, 81 to 90%, strong staining intensity HER2 negative, 1+ on IHC. Patient underwent a right breast GREGORY Oncology Account Specialist localized lumpectomy, right sentinel lymph node mappingand biopsy on 10/07/2021. Pathology: A. Right axilla, sentinel lymph nodes, excision: -Two lymph nodes, negative for metastatic carcinoma (0/2), (please see comment). B. Right breast, lumpectomy: - Invasive mammary carcinoma with mixed ductal and lobular features, Chilton grade 2, measuring 7 mm in greatest dimension, (please see comment and synoptic report). - Biopsy site changes, biopsy clip, and GREGORY coin dealer identified - The surrounding breast parenchyma shows [...] V86.0, ICD10: C50.211, Z17.0 pT1b pN0(sn) M0 ER/NH positive, HER2 negative stage IA infiltrating ductal carcinoma of the right breast. Per Dr. Zavaleta's previous note: Assessment: -The patient is a 58-year-old postmenopausal female (no menses in 3 years) who was diagnosed with apT1b pN0 M0 ER/NH positive, HER2 negative stage IA mixed invasive [...] not receive radiation. -Custom cancer panel through [facility] negative for all tested mutations. -ECOG PS [...] current medications. - Continue follow up with PCP/CHEESE SPECIALIST. - Mammogram due mid 2025. - Follow up in 6 months. - Pt. aware to call office with any questions/concerns. The sensitive examination was discussed with the Patient or Patient's Authorized Breakfast Manager. Asapplicable, any other physician, advance practice provider, medical student, or other health professional student that will be observing or involved in the sensitive examination for educational or training purposes was discussed with the Patient or Authorized Breakfast Manager. The Patient or Authorized Breakfast Manager has agreed to proceed with the sensitive examination. (Sensitive examination includes inspection and/or palpation of the breasts, pelvis, prostate and anorectal regions) The patient indicates understanding of these issues and agrees with the plan. All documentation from previous visit of 11/24/23-Dr. Zavaleta/myself was copied and pasted, documentation has been reviewed and edited as necessary for today's visit. Stephanie Crawford APRN.JADEN documented in this encounterWadsworth-[facility]02-17-2025 Telephone encounter Note * Telephone Encounter - Akira Pierre MD - 04/25/2024 4:19 PM EST The following approved medication requests have been transmitted electronically. Requested Prescriptions Signed Prescriptions Disp Refills omeprazole (PRILOSEC) 20 mg capsule 90 capsule 3 Sig: Take 1 capsule by mouth once daily. Akira Pierre MD [facility]02-17-2025 Miscellaneous Notes* Telephone Encounter - Akira Pierre MD - 04/25/2024 4:19 PM EST The following approved medication requests have been transmitted electronically. Requested Prescriptions Signed Prescriptions Disp Refills omeprazole (PRILOSEC) 20 mg capsule 90 capsule 3 Sig: Take 1 capsule by mouth once daily. Akira Pierre MD documented in this encounterWadsworth-Rittman [facility]02-14-2025 History of Present illness Narrative* Rosi [...] PATIENT PRESENTS WITH AN IMPLANTABLE OR ATTACHED MANAGER FILE: No RADIOLOGY DEPARTMENT: Mammography PERIPHERAL IV DATA: Not applicable SIGNED BY: Amie Call April 22, 2024 7:51 AM documented in this encounterWadsworth-Rittman Hospital02-14-2025 NoteHNO ID: [id number] Author: ROSI MILNER Mammo Tech Service: ? Author Type: Design Editor Type: Progress Notes Filed: 04/22/2024 07:51 Note [...] PATIENT PRESENTS WITH AN IMPLANTABLE OR ATTACHED MANAGER FILE: No RADIOLOGY DEPARTMENT: Mammography PERIPHERAL IV DATA: Not applicable SIGNED BY: Rosi Milner [email or web address] April 22, 2024 7:51 [facility] [facility] Instructions* Patient Instructions* Akira Pierre MD - 01/12/2024 5:38 PM EST - Continue taking Meloxicam 15 mg daily for arthritis pain; prescription updated to include 3 refills to last until next year. - Continue taking Omeprazole and Flonase as needed; both are available meem-fcu-qrsmefa. - Continue taking Effexor as prescribed by Dr. Zavaleta. - Use Flexeril as needed for muscle spasms; note that it may lose potency after five years. - Maintain current diet and weight management as advised by Dr. Zavaleta. - Next annual check-up scheduled for next year. documented in this encounterWadsworth-Rittman [facility]11-05-2024 History of Present illness Narrative* Akira Pierre MD - 01/12/2024 5:12 PM EST This note was created using [employer]. Subjective Rebeca Wilson is a 58 year [...] She also takes omeprazole, which she obtains ytkt-fqd-ggiuvtq, for GERD management. Additionally, she uses Flonase, also jqia-osg-qagqfmv, for year-round dog allergies. She is under [...] Abs Lymph 1.00 - 4.00 k/uL 2.59 Grimes% % 6.5 Abs Grimes <0.87 k/uL 0.44 Eosin% % 2.2 Abs [...] to cancel previous refills; prescription sent to [facility]. - Continue current management. # Allergic rhinitis due to animal hair and dander (J30.81) - Managed with gsyj-imb-rezpsza Flonase. - Updated medication list to reflect vdfj-cep-ghbdyme status. # Encounter for long-term current use of medication (Z79.049) - Medications reviewed: Meloxicam, omeprazole (OTC), Effexor, [...] anxiety. Akira Pierre MD documented in this encounterWadsworth-Rittman Hospital11-05-2024 NoteHNO ID: [id number] Author: AKIRA PIERRE MD Service: ? Author Type: Physician Type: Progress Notes Filed: 01/12/2024 17:40 Note Text: This note was created using [employer]. Subjective Rebeca Wilson is a 58 year [...] She also takes omeprazole, which she obtains tnlo-loa-dycguws, for GERD management. Additionally, she uses Flonase, also ccnm-tdj-rgsmszj, for year-round dog allergies. She is under [...] as of this enco (more content not included)...[facility] 11-25-2023 Telephone encounter Note* Telephone Encounter - Akira Pierre MD - 11/25/2023 4:12 PM EDT The following approved medication requests have been transmitted electronically. Requested Prescriptions Pending Prescriptions Disp Refills meloxicam (MOBIC) 15 mg tablet 90 tablet 1 Sig: Take 1 tablet by mouth once daily. Akira Pierre MD [facility]09-18-2024 Miscellaneous Notes* Telephone Encounter - Akira [...] 25, 2023 8:47 AM documented in this encounterWadsworth-Rittman Hospital09-18-2024 Telephone encounter Note * Telephone Encounter [...] Jorgensen LPN November 25, 2023 8:47 AM [facility]09-17-2024 NoteHNO ID: [id number] Author: YENNY POSADAS RN Service: ? Author [...] Treatment Arm: HT - TA2 Study ID [id number] Consent to optional samples Yes Staging/Diagnosis pT1b pN0(sn) M0 ER/NH positive, HER2 negative stage IA Study Status Follow Up Current Treatment Plan: Treatment Dose Start Date Frequency End date exemestane (AROMASIN) 25/mg 11/25/2021 Daily Clinical Trial Specific Testing Test Dates Completed Due Date Mammogram Scan 04/23/202304/2024 Clinical Trial Draw 11/17/202211/2024 Year 3 QOLs 11/2023 QOLS were completed in [facility] via [facility] 11/2024 Baseline Weight 89.8 (11/15/2021) 95.5 Creatinine [...] On-Call number for the On-Call Oncology Fellow ([phone]). DANA Bond, RN Clinical Research Nurse [phone] [facility]09-17-20[facility] History of Present illness Narrative* Yenny [...] Treatment Arm: HT - TA2 Study ID [id number] Consent to optional samples Yes Staging/Diagnosis pT1b pN0(sn) M0 ER/NH positive, HER2 negative stage IA Study Status [...] On-Call number for the On-Call Oncology Fellow ([phone]). DANA Bond, RN Clinical Research Nurse [phone] documented in this encounterWadsworth-Rittman Hospital09-17-2024 NoteHNO ID: [id number] Author: STEPHANIE CRAWFORD APRN.RESIDENTIAL SALES REPRESENTATIVE Service: ? Author Type: Nurse Practitioner Type: [...] ER +91 to 100%, strong staining intensity. NH positive, 81 to 90%, strong staining intensity HER2 negative, 1+ on IHC. Patient underwent a right breast GREGORY Oncology Account Specialist localized lumpectomy, right sentinel lymph node mapping and biopsy on 10/07/2021. Pathology: A. Right axilla, sentinel lymph nodes, excision: -Two lymph nodes, negative for metastatic carcinoma (0/2), (please see comment). B. Right breast, lumpectomy: - Invasive mammary carcinoma with mixed ductal and lobular features, Chilton grade 2, measuring 7 mm in greatest dimension, (please see comment and synoptic report). 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 2. Examination of participant in clinical trial - ICD9: V70.7, ICD10: Z00.[address] 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 -Oncotype DX recurrence score 10 indicating 9-year risk of distant recurrence (more content not included)...[facility]09-17-2024 History of Present illness Narrative* Stephanie Crawford RAMAKRISHNA.RESIDENTIAL SALES REPRESENTATIVE - 11/24/2023 8:11 AM EDT Chief Complaint [...] ER +91 to 100%, strong staining intensity. NH positive, 81 to 90%, strong staining intensity HER2 negative, 1+ on IHC. Patient underwent a right breast GREGORY Oncology Account Specialist localized lumpectomy, right sentinel lymph node mappingand biopsy on 10/07/2021. Pathology: A. Right axilla, sentinel lymph nodes, excision: -Two lymph nodes, negative for metastatic carcinoma (0/2), (please see comment). B. Right breast, lumpectomy: - Invasive mammary carcinoma with mixed ductal and lobular features, Chilton grade 2, measuring 7 mm in greatest dimension, (please see comment and synoptic report). 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 2. Examination of participant in clinical trial - ICD9: V70.7, ICD10: Z00.[address] Zavaleta's previous note: Assessment: -The patient is a 58-year-old postmenopausal female (no menses in 3 years) who was diagnosed with apT1b pN0 M0 ER/NH positive, HER2 negative stage IA mixed invasive [...] current medications. - Continue follow up with PCP/CHEESE SPECIALIST. - Mammogram due mid 2024. - Follow up with Dr. Zavaleta in 6 months. - Pt. aware to call office with any questions/concerns. The sensitive examination was discussed with the Patient or Patient's Authorized Breakfast Manager. Asapplicable, any other physician, advance practice provider, medical student, or other health professional student that will be observing or involved in the sensitive examination for educational or training purposes was discussed with the Patient or Authorized Breakfast Manager. The Patient or Authorized Breakfast Manager has agreed to proceed with the sensitive examination. (Sensitive examination includes inspection and/or palpation of the breasts, pelvis, prostate and anorectal regions) The patient indicates understanding of these issues and agrees with the plan. All documentation from previous visit of 08/24/23-Dr. Zavaleta was copied and pasted, documentation hasbeen reviewed and edited as necessary for today's visit. Stephanie Crawford APRN.JADEN documented in this encounterWadsworth-Rittman Hospital06-24-2024 Telephone encounter Note * Telephone Encounter - Amaya Laureano - 08/31/2023 3:26 PM EDT Spoke with patient and scheduled. Amaya Laureano [facility]06-24-2024 Miscellaneous Notes* Telephone Encounter - Amaya [...] already canceled per request. documented in this encounterWadsworth-Rittman Hospital06-20-2024 Telephone encounter Note * Telephone Encounter - Stefany Beckford - 08/27/2023 3:17 PM EDT 1st attempt. Message left for patient to contact office and schedule a 3 month OV with Stephanie (Aleida is not on this study per Research Nurse) in February appointment already canceled per request. [facility] Work Phone: [phone] NoteHNO ID: [id number] Author: NAHUN ZAVALETA, DO Service: ? Author Type: Physician Type: Progress Notes Filed: 08/24/2023 16:23 Note Text: Oncologic problem(s): 1) pT1b pN0(sn) M0 ER/NH positive, HER2 negative stage IA infiltrating ductal [...] ER +91 to 100%, strong staining intensity. NH positive, 81 to 90%, strong staining intensity HER2 negative, 1+ on IHC. Patient underwent a right breast GREGORY Oncology Account Specialist localized lumpectomy, right sentinel lymph node mapping and biopsy on 10/07/2021. Pathology: A. Right axilla, sentinel lymph nodes, excision: -Two lymph nodes, negative for metastatic carcinoma (0/2), (please see comment). B. Right breast, lumpectomy: - Invasive mammary carcinoma with mixed ductal and lobular features, Chilton grade 2, measuring 7 mm in greatest dimension, (please see comment and synoptic report). - Biopsy site changes, biopsy clip, and GREGORY coin dealer identified - The surrounding breast parenchyma shows [...] as well. 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 [...] nondistended. No organom (more content not included)... [facility]06-17-[facility] History of Present illness Narrative* Nahun Zavaleta, - 08/24/2023 3:51 PM EDT Oncologic problem(s): 1) pT1b pN0(sn) M0 ER/NH positive, HER2 negative stage IA infiltrating ductal [...] ER +91 to 100%, strong staining intensity. NH positive, 81 to 90%, strong staining intensity HER2 negative, 1+ on IHC. Patient underwent a right breast GREGORY Oncology Account Specialist localized lumpectomy, right sentinel lymph node mappingand biopsy on 10/07/2021. Pathology: A. Right axilla, sentinel lymph nodes, excision: -Two lymph nodes, negative for metastatic carcinoma (0/2), (please see comment). B. Right breast, lumpectomy: - Invasive mammary carcinoma with mixed ductal and lobular features, Chilton grade 2, measuring 7 mm in greatest dimension, (please see comment and synoptic report). - Biopsy site changes, biopsy clip, and GREGORY coin dealer identified - The surrounding breast parenchyma shows [...] as well. 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 [...] who was diagnosed with apT1b pN0 M0 ER/NH positive, HER2 negative stage IA mixed invasive [...] not receive radiation. -Custom cancer panel through [employer] negative for all tested mutations. -ECOG PS [...] which included preparing to see the patient, usjp-jn-vnhb patient care, completing clinical documentation, obtaining and/or reviewing separately obtained history, performing a medically appropriate examination, counseling and educating the pat ient/family/caregiver, ordering medications, tests, or procedures, communicating with other HCPs (not separately reported), and communicating results to the patient/family/caregiver. Nahun Zavaleta DO documented in this encounterWadsworth-Rittman Hospital06-14-2024 Telephone encounter Note * Telephone Encounter [...] Mack LPN August 21, 2023 7:42 AM [facility]06-14-2024 Miscellaneous Notes* Telephone Encounter - Pilar [...] 21, 2023 7:42 AM documented in this encounterWadsworth-Rittman Hospital04-18-2024 History of Present illness Narrative* Landy Schneider MD - 06/25/2023 8:00 AM EDT FOLLOW UP VISIT - HERNIA NAME: Rebeca [facility] NO.: [id number] DATE OF SERVICE: 06/25/2023 : 1965 REFERRING PHYSICIAN: Akira Pierre MD Rebeca is a patient I am following for a supraumbilical hernia. I performed a laparoscopic ventral hernia repair with mesh on June 11, 2023. The patient was found to have a 2cm ventral hernia 3cm above the umbilicus and a 1.5cm umbilical hernia. A 12cm [place] mesh was placed with an laparoscopic IPOM [...] needed. Landy Schneider MD documented in this encounterWadsworth-Rittman Hospital04-18-2024 NoteHNO ID: [id number] Author: LANDY SCHNEIDER MD Service: ? Author Type: Physician Type: Progress Notes Filed: 06/26/2023 04:49 Note Text: FOLLOW UP VISIT - HERNIA NAME: Rebeca [facility] NO.: [id number] DATE OF SERVICE: 06/25/2023 : 1965 REFERRING PHYSICIAN: Akira Pierre MD Rebeca is a patient I am following for a supraumbilical hernia. I performed a laparoscopic ventral hernia repair with mesh on June 11, 2023. The patient was found to have a 2cm ventral hernia 3cm above the umbilicus and a 1.5cm umbilical hernia. A 12cm [place] mesh was placed with an laparoscopic IPOM [...] follow-up with me as needed. Landy Schneider, [facility]04-09-2024 Miscellaneous Notes* Telephone Encounter - Vineet Meier RN - 06/16/2023 9:43 AM EDT Form faxed to [facility]. Fax confirmation sheet received. My Chart message sent to Rebeca, advising that the forms had been completed, faxed, and a copy was left at the front end assistant for her. Vineet Meier RN * Telephone Encounter - Vineet Meier RN - 06/16/2023 9:41 AM EDT Type of form: FMLA Form received via walk in When form is completed, Fax form to [phone] Form has been forwarded to Physician Mailbox: Dr. Wyatt Meier RN documented in this encounterWadsworth-Rittman Hospital04-04-2024 NoteHNO ID: [id number] Author: DU GRIFFIN APRN.COMPARATOR OPERATOR Service: Anesthesiology Author Type: Nurse Habilitation Specialist Type: Anesthesia Procedure Notes Filed: 06/11/2023 08:53 Note Text: ANESTHESIOLOGY PROCEDURE NOTE Airway General Information Procedure Start Time/Medication Administration: 06/11/2023 8:40 AM Patient location during procedure: OR Staffing Anesthesiologist: Jose E Salinas MD COMPARATOR OPERATOR: Du Griffin APRN.COMPARATOR OPERATOR Performed by: COMPARATOR OPERATOR Indications and Patient Condition Indications for airway [...] June 11, 2023 TIME: 8:52 AM CSN: [id number] NoteHNO ID: [id number] Author: BARBI ARELLANO RN Service: Nursing Author Type: Registered Nurse Type: Nursing Progress Note Filed: 06/11/2023 07:32 Note Text: Other: pt ready for OR, call light in reach, spouse called to bedside.[facility]iver[facility] Health [id number] Miscellaneous Notes* Telephone Encounter - Mary Moses [...] advise if other recommendation. documented in this encounterWadsworth-Rittman Hospital03-26-2024 NoteHNO ID: [id number] Author: LANDY SCHNEIDER MD Service: ? Author Type: Physician Type: Progress Notes Filed: 06/02/2023 18:40 Note Text: HISTORY AND PHYSICAL Rebeca Wilson 1965 REFERRING PHYSICIAN: Nahun Zavaleta DO CHIEF COMPLAINT: Consult (Epigastric pain) HPI: Rebeca is a 57 year old female with a complaint of what she describes as reflux and epigastric pain symptoms. Patient notes some reflux. She was started on rjpo-nmp-bpnlhll Prilosec 2 tablets a day and notes improvement in her reflux symptoms. The patient also notes discomfort in her supraumbilical area. She assumed this was her stomach. She does note a tender area in the area of the supraumbilical epigastrium The patient had CT scan performed at [facility]. This demonstrated a very small break in [...] entered by the nurse and reviewed by ak Nursing Notes: Kimi Talamantes RN 06/02/2023 2:29 [...] patient NOTES difficulty swallowin (more content not included)...[facility]03-26-2024 History of Present illness Narrative* Landy Schneider MD - 06/02/2023 6:15 PM EDT HISTORY AND PHYSICAL Rebeca Wilson 1965 REFERRING PHYSICIAN: Nahun Zavaleta DO CHIEF COMPLAINT: Consult (Epigastric pain) HPI: Rebeca is a 57 year old female with a complaint of what she describes as reflux and epigastric pain symptoms. Patient notes some reflux. She was started on zwtf-all-trsecpl Prilosec 2 tablets a day and notes improvement in her reflux symptoms. The patient also notes discomfort in her supraumbilical area. Sheassumed this was her stomach. She does note a tender area in the area of the supraumbilical epigastrium The patient had CT scan performed at [facility]. This demonstrated a very small break in [...] strong family history of malignancy we recommended 8-etbfmuzpjx-ma. The patient is being seen by me [...] entered by the nurse and reviewed by ak Nursing Notes: Kimi Talamantes RN 06/02/2023 2:29 [...] CPT Code: Initial anterior abdominal hernia repair: 00434 - <3 cm incarcerated or strangulated Anticipated Anesthetic: General Patient weight: Blood pressure 124/74, pulse 91, temperature 36.8 C (98.2 F), height 167.6 cm (5' 6), weight 96.3 kg (212 lb 6.4 oz), last menstrual period 07/28/2015, SpO2 100%. BMI: Body mass index is 34.28 kg/m . Planned antibiotic: Ancef 2gm IVPB information technology account manager to OR SCDs needed - Yes Return to Clinic: The patient is instructed to follow-up with me 1 week post operatively. Landy Schneider MD documented in this encounterWadsworth-Rittman Hospital03-26-2024 Telephone encounter Note * Telephone Encounter - Lorri Peng - 06/02/2023 4:00 PM EDT 06/11/2023 LAP HERNIA REPAIR MEJIA [facility]03-26-2024 Miscellaneous Notes* Telephone Encounter - Lorri Peng - 06/02/2023 4:00 PM EDT 06/11/2023 LAP HERNIA REPAIR MEJIA documented in this encounterWadsworth-Rittman Hospital03-26-2024 Nurse Note* Kimi Talamantes RN - [...] 01/31/2020 Kimi Talamantes RN documented in this encounterWadsworth-Rittman Hospital03-25-2024 Miscellaneous Notes* Telephone Encounter - Nima [...] you. Nima Hinojosa MA. documented in this encounterWadsworth-Rittman Hospital03-20-2024 Miscellaneous Notes* Telephone Encounter - Yenny Posadas RN - 05/27/2023 1:20 PM EDT Left patient a voicemail about her CT results that were already reviewed by Meghann. Yenny Posadas RN documented in this encounterWadsworth-Rittman Hospital03-19-2024 Miscellaneous Notes* Telephone Encounter - Stefany [...] are available to review. Snipped below from [facility] records. Cande Grajeda RN documented in this encounterWadsworth-Rittman Hospital03-15-2024 History of Present illness Narrative* Yenny [...] ECOG 0/ KPS 100 by RIO Merlos RESIDENTIAL SALES REPRESENTATIVE - 05/22/2023 QOL: Through the aguilar - [...] On-Call number for the On-Call Oncology Fellow ([phone]). DANA Bond, RN Clinical Research Nurse [phone] documented in this encounterWadsworth-Rittman Hospital03-15-2024 Nurse Note* Pilar Mack LPN - 05/22/2023 1:04 PM EDT 6 month F/U , last mamm 04/23/2023 C/O weight gain, a lot of abdominal pressure, gas, heartburn. 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 NH positive, 81 to 90%, strong staining intensity HER2 negative, 1+ on IHC. Patient underwent a right breast GREGORY Oncology Account Specialist localized lumpectomy, right sentinel lymph node mappingand biopsy on 10/07/2021. Pathology: A. Right axilla, sentinel lymph nodes, excision: -Two lymph nodes, negative for metastatic carcinoma (0/2), (please see comment). B. Right breast, lumpectomy: - Invasive mammary carcinoma with mixed ductal and lobular features, Chilton grade 2, measuring 7 mm in greatest dimension, (please see comment and synoptic report). - Biopsy site changes, biopsy clip, and GREGORY coin dealer identified - The surrounding breast parenchyma shows [...] changes in urinary habits. 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 PMH, medications and allergies [...] who was diagnosed with apT1b pN0 M0 ER/NH positive, HER2 negative stage IA mixed invasive [...] not receive radiation. -Custom cancer panel through [employer] negative for all tested mutations. -ECOG PS [...] AP RTC in 3 months Aleida Rodriguez APRN.RESIDENTIAL SALES REPRESENTATIVE I spent a total of 45 minutes on the date of the service which included preparing to see the patient, iktb-qb-ezfg patient care, completing clinical documentation, counseling and [...] evaluation of this patient. documented in this encounterWadsworth-Rittman Hospital03-06-2024 Miscellaneous Notes* Telephone Encounter - Amaya Laureano - 05/13/2023 4:22 PM EST Patient returned call and rescheduled. Amaya Laureano * Telephone Encounter - Amaya Laureano - 05/13/2023 4:03 PM EST Left message for patient to return call. When she calls, please see if she will change her appointment on 05/[address] Zavaleta request. Amaya Laureano documented in this encounterWadsworth-Rittman Hospital02-15-2024 Miscellaneous Notes* Letter - Coordinator, Mammography - 04/23/2023 8:39 AM EST April 23, 2023 PID: [id number] Rebeca Wilson [address] [place] [address] Dear Ms. Wilson, We are pleased to [...] report will be [facility] on [facility] as part of your permanent medical record and are available for your continuing care. Thank you for allowing us to help in meeting your health care needs. Sincerely, Dr. Miller Interpreting Radiologist [facility] (Normal over 40) documented in this encounterWadsworth-Rittman Hospital02-15-2024 History of Present illness Narrative* Rosi [...] PATIENT PRESENTS WITH AN IMPLANTABLE OR ATTACHED MANAGER FILE: No RADIOLOGY DEPARTMENT: Mammography PERIPHERAL IV DATA: Not applicable SIGNED BY: Santiago Callo Shira April 23, 2023 7:49 AM documented in this encounterWadsworth-Rittman Hospital02-15-2024 Miscellaneous Notes* Result Encounter Note - Nahun Zavaleta DO - 04/23/2023 7:30 AM EST Mammogram normal. documented in this encounterWadsworth-Rittman Hospital12-08-2023 History of Present illness Narrative* Patrice Palencia MD - 02/13/2023 1:46 PM EST VIRTUAL VISIT PROGRESS NOTE This is a virtual visit using [employer] video visit. It required patient-provider interaction for themedical decision making as documented below. I have communicated my name and active licensure. The patient's identity and physical location wereverified at the time of this visit. Either the patient or their legal energy conservation representative has been informed of the risks [...] Abs Lymph 1.00 - 4.00 k/uL 2.59 Grimes% % 6.5 Abs Grimes <0.87 k/uL 0.44 Eosin% % 2.2 Abs [...] No significant change from the previous ultrasound. Group Account Director: [facility] Transcribe Date/Time: Jan 09 2023 2:11P Dictated by : ELBERT LARA MD This examination was interpreted and the report reviewed and electronically signed by: ELBERT LARA MD on Jan 09 2023 2:18PM EST Results-Findings * * *Final Report* * * DATE OF EXAM: Jan 08 2023 7:45AM [facility] [place] 1048 - US THYROID/PARATHYROID / PROCEDURE REASON: [...] 2 points Echogenicity: Hypoechoic, 2 points Shape: Mbuwm-jvsv-tbcw, 0 points Margin: Smooth, 0 points Echogenic [...] 2 points Echogenicity: Isoechoic, 1 point Shape: Lpplt-okdt-fxxi, 0 points Margin: Smooth, 0 points Echogenic foci (add points for all that apply): None, 0 points Internal vascularity: present Interval growth: Stable TI-RADS Category: TR3 ACR Recommendation: TI-RADS 3 nodule. FNA is recommended for nodules measuring greater than 2.5cm. ASSESSMENT/PLAN: A pleasant 57 yo female patient with hx of breast ca, s/p lumpectomy on [facility], presenting for follow up of [facility]. Patient [...] the left nodule in August [address] [place] [address] Myers, general surgery. Results came [...] visit. Patrice Palencia MD documented in this [facility]11-23-2023 History of Present illness Narrative* Jennifer Mo APRN.CNP - 01/29/2023 9:22 AM EST Pt did not show for consult lung cancer screening visit. documented in this [facility]11-02-2023 History of Present illness Narrative* Padmini Falcon [...] 08, 2023 8:09 AM documented in this [facility]10-31-2023 History of Present illness Narrative* Akira Pierre MD - 01/06/2023 5:52 PM EDT This note was created using NoteWbhanuter. Subjective Rebeca Wilson is a 57 year old female. HISTORY Rebeca Wilson is a 57 year old lady here for yearly exam and follow up appointment. Noted that working with gold beater for goiter issue. Does feel larger and [...] Abs Lymph 1.00 - 4.00 k/uL 2.59 Grimes% % 6.5 Abs Grimes <0.87 k/uL 0.44 Eosin% % 2.2 Abs [...] indicated. Akira Pierre MD documented in this encounterWadsworth-Rittman [facility]10-09-2023 History of Present illness Narrative* Patrice Palencia MD - 12/15/2022 3:00 PM EDT VIRTUAL VISIT PROGRESS NOTE This is a virtual visit using [employer] video visit. It required patient-provider interaction for themedical decision making as documented below. I have communicated my name and active licensure. The patient's identity and physical location wereverified at the time of this visit. Either the patient or their legal energy conservation representative has been informed of the risks [...] had US guided FNA the previousweek in [place] with Dr Myers, general surgery. She saw [...] Abs Lymph 1.00 - 4.00 k/uL 2.59 Grimes% % 6.5 Abs Grimes <0.87 k/uL 0.44 Eosin% % 2.2 Abs [...] not consider stability or previous biopsy results. Group Account Director: [facility] Transcribe Date/Time: Jun 28 2022 9:52P Dictated [...] 2 points Echogenicity: Hypoechoic, 2 points Shape: Ttokk-xtzk-bmwo, 0 points Margin: Smooth, 0 points Echogenic [...] 2 points Echogenicity: Isoechoic, 1 point Shape: Sahec-lmpv-umjj, 0 points Margin: Smooth, 0 points Echogenic [...] functioning thyroid tissue/adenoma, although FNA is recommended. Group Account Director: NAHOMI Transcribe Date/Time: Aug 06 2022 9:15A [...] the left nodule in August [address] [place] [address] Myers, general surgery. Results came [...] which included preparing to see the patient, ojeh-ng-qyqc patient care, completing clinical documentation, obtaining and/or reviewing separately obtained history, performing a medically appropriate examination, counseling and educating the pat ient, ordering medications, tests, or procedures and care coordination. Patrice Palencia MD documented in this encounterWadsworth-Rittman Hospital09-19-2023 Miscellaneous Notes* Telephone Encounter - Pilar [...] patient. 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 NH positive, 81 to 90%, strong staining intensity HER2 negative, 1+ on IHC. Patient underwent a right breast GREGORY Oncology Account Specialist localized lumpectomy, right sentinel lymph node mappingand [...] Biopsy site changes, biopsy clip, and GREGORY coin dealer identified - The surrounding breast parenchyma shows [...] not bothering as much. 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 [...] Rhythm is regular. BREAST: Nurse acted as hitcher. Right breast and axillary incision well- healed. [...] who was diagnosed with apT1b pN0 M0 ER/NH positive, HER2 negative stage IA mixed invasive [...] which included preparing to see the patient, flpu-fc-ooyo patient care, completing clinical documentation, obtaining and/or reviewing separately obtained history, performing a medically appropriate examination, counseling and educating the pat ient/family/caregiver, ordering medications, tests, or procedures, communicating with other HCPs (not separately reported), and communicating results to the patient/family/caregiver. Nahun Zavaleta DO documented in this encounterWadsworth-Rittman Hospital09-11-2023 History of Present illness Narrative* Yenny [...] Shipped to sponsor - Sent [employer]ex - [id number] on dry ice per protocol. Shipped 14 Cryovials: 4 EDTA - PLS 1 EDTA - BC 4 Serum 4 STK- PLS 1 STK - BC Patient to C Thursday for 12 Month OV. Yenny Posadas RN [phone] documented in this encounterWadsworth-Rittman Hospital09-05-2023 Miscellaneous Notes* Telephone Encounter - Stefany Beckford - 11/11/2022 2:48 PM EDT Lab appt scheduled. Once orders are entered, patient can come in anytime that day. Does not need sravani at scheduled time. documented in this encounterWadsworth-Rittman Hospital09-01-2023 Miscellaneous Notes* Telephone Encounter - Yenny Posadas RN - 11/07/2022 9:36 AM EDT Left the patient a voicemail in regards to their one year clinical trial draw. Yenny Posadas RN documented in this encounterWadsworth-Rittman Hospital06-30-2023 Miscellaneous Notes* Telephone Encounter - Patrice [...] Full note to follow. documented in this encounterWadsworth-Rittman Hospital06-27-2023 Nurse Note* Brittany Correa LPN - 09/02/2022 4:[address] Myers removed sutures and this nurse applied steri strips and bandage. Dr Myers review thyroid pathology results with patient. Brittany Correa LPN documented in this encounterWadsworth-Rittman Hospital06-26-2023 Miscellaneous Notes* Telephone Encounter - Pilar [...] patient. Pilar Davidson LPN documented in this encounterWadsworth-Rittman Hospital06-20-2023 History of Present illness Narrative* Quinton [...] 2 points Echogenicity: Hypoechoic, 2 points Shape: Chppe-npri-qmkx, 0 points Margin: Smooth, 0 points Echogenic [...] 2 points Echogenicity: Isoechoic, 1 point Shape: Vdoyw-gjpg-qbnp, 0 points Margin: Smooth, 0 points Echogenic [...] Quinton Myers III, MD documented in this encounterWadsworth-Rittman Hospital06-12-2023 History of Present illness Narrative* Patrice Palencia MD - 08/18/2022 11:45 AM EDT VIRTUAL VISIT PROGRESS NOTE This is a virtual visit using [employer] video visit. It required patient-provider interaction for themedical decision making as documented below. I have communicated my name and active licensure. The patient's identity and physical location wereverified at the time of this visit. Either the patient or their legal energy conservation representative has been informed of the risks [...] Abs Lymph 1.00 - 4.00 k/uL 2.59 Grimes% % 6.5 Abs Grimes <0.87 k/uL 0.44 Eosin% % 2.2 Abs [...] not consider stability or previous biopsy results. Group Account Director: NAHOMI Transcribe Date/Time: Jun 28 2022 9:52P Dictated by : TERRY SAM MD This examination was interpreted and the report reviewed and electronically signed by: TERRY SAM MD on Jun 28 2022 9:56PM EST Results-Findings * * *Final Report* * * DATE OF EXAM: Jun 26 2022 8:58AM [facility] [place] [facility]48 - US THYROID/PARATHYROID / PROCEDURE REASON: [...] 2 points Echogenicity: Hypoechoic, 2 points Shape: Nndjy-qxaz-uqpz, 0 points Margin: Smooth, 0 points Echogenic [...] 2 points Echogenicity: Isoechoic, 1 point Shape: Gollr-glwu-fxvy, 0 points Margin: Smooth, 0 points Echogenic [...] functioning thyroid tissue/adenoma, although FNA is recommended. Group Account Director: PSCB Transcribe Date/Time: Aug 06 2022 9:15A [...] 0.9 cm hypoechoic nodule not significantly different [id number], and a larger 3 by 2.5 by [...] which included preparing to see the patient, fatn-wv-skvv patient care, completing clinical documentation, obtaining and/or reviewing separately obtained history, performing a medically appropriate examination, counseling and educating the pat ient, ordering medications, tests, or procedures and care coordination. Patrice Palencia MD documented in this encounterWadsworth-Rittman Hospital06-12-2023 Nurse Note* Nicky Moore MA - [...] Monocytes % 06/20/2022 6.5 % Final Abs Grimes 06/20/2022 0.44 <0.87 k/uL Final Eosinophils % [...] 99 74 - 99 mg/dL Final The [place] [employer] (ADA) provides guidance for cutoff [...] Standards of Medical Care in Diabetes 2016, [place] [employer]. Diabetes Care. 2016.39(Suppl 1). BUN [...] accurately reflect actual GFR. documented in this encounterWadsworth-Rittman Hospital06-08-2023 History of Present illness Narrative* Yenny [...] On-Call number for the On-Call Oncology Fellow ([phone]). DANA Bond, RN Clinical Research Nurse [phone] documented in this encounterWadsworth-Rittman Hospital05-30-2023 NoteHNO ID: [id number] Author: RT Lalo(R) Service: ? Author Type: Technologist Type: Progress Notes Filed: 08/05/2022 9:31 AM Note Text:[facility] [id number] NoteHNO ID: [id number] Author: RT Lalo(R) Service: ? Author Type: [...] 834 PATIENT DISCHARGED TO: Ambulatory patient, left [place] department area. A Diagnostic radioactive procedure has taken place, with no further precautions necessary other than routine body substance precautions. More information regarding radiation safety can be found using this link: [email or web address] [email or web address]%20Nuclear%20Medicine%20Procedures.pdf SIGNATURE: PETRA May) PATIENT NAME: Rebeca Wilson DATE: August 05, 2022 TIME: 9:08 AM PAGER/CONTACT #:[facility] [phone] History of Present illness Narrative* PETRA May) [...] radiation safety can be found usingthis link: [email or web address]-% 20Diagnostic%20Nuclear%20Medicine%20Procedures.pdf SIGNATURE: PETRA May) PATIENT NAME: Rebeca Wilson DATE: August 05, 2022 TIME: 9:08 AM PAGER/CONTACT #: documented in this encounterWadsworth-Rittman Hospital05-05-2023 History of Present illness Narrative* Patrice Palencia MD - 07/11/2022 10:19 AM EDT Images from the original note were not included. VIRTUAL VISIT PROGRESS NOTE This is a virtual visit using [employer] video visit. It required patient-provider interaction for themedical decision making as documented below. I have communicated my name and active licensure. The patient's identity and physical location wereverified at the time of this visit. Either the patient or their legal energy conservation representative has been informed of the risks [...] 0.9 cm hypoechoic nodule not significantly different [id number], and a larger 3 by 2.5 by [...] Abs Lymph 1.00 - 4.00 k/uL 2.59 Grimes% % 6.5 Abs Grimes <0.87 k/uL 0.44 Eosin% % 2.2 Abs [...] not consider stability or previous biopsy results. Group Account Director: PSCB Transcribe Date/Time: Jun 28 2022 9:52P Dictated by : TERRY SAM MD This examination was interpreted and the report reviewed and electronically signed by: TERRY SAM MD on Jun 28 2022 9:56PM EST Results-Findings * * *Final Report* * * DATE OF EXAM: Jun 26 2022 8:58AM [facility] [place] 1048 - US THYROID/PARATHYROID / PROCEDURE REASON: [...] 2 points Echogenicity: Hypoechoic, 2 points Shape: Jceva-dojl-alvl, 0 points Margin: Smooth, 0 points Echogenic [...] 2 points Echogenicity: Isoechoic, 1 point Shape: Abqhw-tphs-wuyc, 0 points Margin: Smooth, 0 points Echogenic [...] 0.9 cm hypoechoic nodule not significantly different [id number], and a larger 3 by 2.5 by [...] which included preparing to see the patient, mfxc-az-bycc patient care, completing clinical documentation, obtaining and/or reviewing separately obtained history, performing a medically appropriate examination, counseling and educating the pat ient, ordering medications, tests, or procedures and care coordination. Patrice Palencia MD documented in this encounterWadsworth-Rittman Hospital04-25-2023 Miscellaneous Notes* Telephone Encounter - Nicolasa Padilla - 07/01/2022 10:41 AM EDT PT transferred to [facility]. Nicolasa PSS * Telephone Encounter - Mary Chino LPN - 07/01/2022 8:36 AM EDT Patient notified of providers message and verbalized understanding. Patient would like to proceed with consult to endocrine surgeon as well for FNA of nodule. Encounter routed to PSR to assist patient in scheduling. * Telephone Encounter - Celeste Salcedo, INFORMATICS NURSE.ACTUARIAL ASSOCIATE - 07/01/2022 8:20 AM EDT Please let her know that T3-T4 and thyroid peroxidase were within normal limits. Ultrasound of her thyroid shows nodule which has increased in size by ~20% and FNA is advised. She has an upcoming appointment with gold beater, will likely need to see endocrine surgery as well for FNA of nodule. Consult placed, schedule if willing. If she so desires can wait to speak with gold beater first - July 11 appt. is scheduled. [...] Abs Lymph 1.00 - 4.00 k/uL 2.59 Grimes% % 6.5 Abs Grimes <0.87 k/uL 0.44 Eosin% % 2.2 Abs [...] Antibody <5.6 IU/mL <3.0 documented in this encounterWadsworth-Rittman Hospital04-25-2023 History of Present illness Narrative* Trina [...] Age at 1st : 19; Post menopausal Vehicle Service Agent History LMP: 07/28/2015 (Exact Date), Postmenopausal Age at Menarche: Age at First : Age at Menopause: Vehicle Service Agent History Comments: Sexual Activity: Yes; Male Contraception: [...] external genitalia normal, normal Bartholin's glands, urethra, La Sal's glands, no vulvar lesions, no cervical lesions, [...] needed Trina Jorgensen MD documented in this encounterWadsworth-Rittman Hospital04-20-2023 History of Present illness Narrative* Padmini [...] 26, 2022 9:37 AM documented in this encounterWadsworth-Rittman Hospital04-17-2023 Miscellaneous Notes* Telephone Encounter - Gia Henning Ma - 06/23/2022 10:16 AM EDT Pt notified. She is going to get the blood work done today at 3 pm as scheduled. Transferred to [facility] to est up Endo appt. Gia Henning Ma * Telephone Encounter - Celestealeisha Salcedo APRN.ACTUARIAL ASSOCIATE - 06/23/2022 8:37 AM EDT Please let [...] Abs Lymph 1.00 - 4.00 k/uL 2.59 Grimes% % 6.5 Abs Grimes <0.87 k/uL 0.44 Eosin% % 2.2 Abs [...] 4.200 mIU/L 0.051 (L) documented in this encounterWadsworth-Rittman Hospital04-14-2023 Instructions* Patient Instructions* Celeste Salcedo APRN.CNS - 06/20/2022 9:15 AM EDT Check to see if your insurance covers shingles and Tdap vaccine and what location to get the vaccine -usually best covered at your local pharmacy where you get prescriptions filled documented in this encounterWadsworth-Rittman Hospital04-14-2023 History of Present illness Narrative* Celeste [...] documents. Reaction to Zometa 2022. CT chest [facility] May 06, 2022 completed for diffuse pleuritic [...] Akira Pierre MD labs today Celeste Salcedo APRN.ACTUARIAL ASSOCIATE Medical Decision Making: Problems: Moderate: 1+ chronic illnesses with change and 2+ stable chronic illnesses Data: Unique test(s) ordered: 3+ Risk: Low: Low risk from testing/treatment Moderate: Drug management Medical Decision Making Level: 4 - Moderate documented in this encounterWadsworth-Rittman Hospital04-03-2023 Miscellaneous Notes* Telephone Encounter - Nima Hinojosa Ma - 06/09/2022 12:57 PM EDT RODRIGO: 12/20/2021 Last refill: 11/15/2021 QTY: 90 Refills: 1 documented in this encounterWadsworth-Rittman Hospital03-29-2023 Miscellaneous Notes* Telephone Encounter - Pilar [...] patient. Pilar Davidson LPN documented in this encounterWadsworth-Rittman Hospital03-07-2023 Miscellaneous Notes* Telephone Encounter - Yenny Posadas RN - 05/13/2022 3:03 PM EST Left patient a voicemail in regards to patient QOL portal. Yenny Posadas RN documented in this encounterWadsworth-Rittman Hospital03-07-2023 History of Present illness Narrative* Yenny [...] On-Call number for the On-Call Oncology Fellow ([phone]). 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 NH positive, 81 to 90%, strong staining intensity HER2 negative, 1+ on IHC. 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 No pain currently. 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 PMH, medications and allergies [...] Rhythm is regular. BREAST: Nurse acted as hitcher. Right breast and axillary incision well- healed. No concerning mass or nodule bilaterally. ABDOMEN: The abdomen is nondistended. No organomegaly. No tenderness. Extremities: No swelling or edema. SKIN: Fine milia-type rash arms and upper anterior chest. 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 No focal motor weakness. MUSCULOSKELETAL: No muscle wasting. ASSESSMENT/PLAN: (C50.211, Z17.0) Malignant neoplasm of 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, estrogen receptor positive (HCC) (primary encounter diagnosis) (Z00.6) Examination of participant in clinical trial Assessment: -The patient is a 56-year-old postmenopausal female (no menses in 3 years) who was diagnosed with apT1b pN0 M0 ER/NH positive, HER2 negative stage IA mixed invasive [...] not receive radiation. -Custom cancer panel through [employer] negative for all tested mutations. -On therapy [...] which included preparing to see the patient, njuo-kb-yowr patient care, completing clinical documentation, obtaining and/or reviewing separately obtained history, performing a medically appropriate examination, and counseling and educating the patient/family/caregiver. Nahun Zavaleta DO documented in this encounterWadsworth-Rittman Hospital03-01-2023 Miscellaneous Notes* Telephone Encounter - Fabiola Shields RN - 05/07/2022 3:01 PM EST EMERGENCY ROOM CALL BACK Today's date: May 07, 2022 Patient identified by name and date of . YES Primary Cancer Diagnosis: Breast Reason for Emergency Room Visit: Severe rib/back pain Time of day presented to Emergency Room 12pm If Thu-Thursday during business hours: Did you contact your Health Associate/Provider? Yes, told to present to emergency department Patient with any new symptom issues: No Psychosocial Risk Factors: None FOLLOW UP Patient reminded of her follow-up appointment with [facility] provider, Dr Zavaleta on 05/13/22: Yes Next Health Associate outreach with patient scheduled? call as needed [...] YES Fabiola Shields RN documented in this encounterWadsworth-Rittman Hospital02-28-[address] Flanagan [facility] May 06, 2022 2:51pm Note Date/Time May 06, 2022 12:41pm [facility] Medical Records Department [address] [place] [address] Emergency Department Summary 05/06/22 MR#: [id number] Acct: [id number] Name: REBECA WILSON Rep #:[id number] : 1965 56 From: Bandar Flanagan MD [...] this who is an additional independent historian. [facility] Medical History (Updated 05/06/22 @ 14:49 by [...] 95.6 H Lymph % (Auto) 1.9 L Grimes % (Auto) 1.8 Eos % (Auto) 0.0 [...] Triage Chief Complaint: Chest Pain ED Provider: Bandra Flanagan Dx/Rx/DC Orders Clinical Impression: Medication side [...] PO DAILY fluticasone propionate [Flonase] 50 mcg/actuation Wagner,Suspension 2 spray INTRANASAL DAILY Primary Care Provider: [...] your Primary Care Provider. Call [facility] ([phone]) or report to the closest Emergency Room. Call 911 if necessary. 05/06/22 1451 <Electronically signed by Bandar Flanagan MD> Cosigner Signature (if applicable): CC: Dr. Nahun Zavaleta DO; Akira Pierre MD ~ Signed [facility] Work Phone: 1(145) 530-805702-28-2023 Miscellaneous Notes* Telephone Encounter - Fabiola Shields RN - 05/06/2022 11:20 AM EST Call to patient. She will go to [place] ED at this time. This nurse will [...] instructions. 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 Bravo (Breast Surgeon) on 10/07/2021 Final pathology reports Invasive mammary carcinoma with mixed ductal and lobular features, 7 mm (margins clear), Grade 2, 0/2 LN, -LVI ER+, NH+, HER2- PATHOLOGICAL STAGE RIGHT BREAST: p,T1b,N0 She initially presented on 09/26/2021 with a RIGHT breast 6 mm invasive mammary cancer at 1:00, [address]FN[address] 4 mm but normal - no need for bx, per discussion with radiology. ER+NH+HER2- [id number] HISTORY: Patient was was last seen for [...] Byrd. He discussed an ongoing trial investigation ([facility] BR007 trial) investigating de- escalation of breast [...] reported on 11/22/2021 Custom Cancer Panel through [facility] was negative for a pathogenic variant. ROS: [...] made to exams dated: 10/02/2021 mammogram - [facility], 08/20/2021 mammogram - [facility], 07/17/2021 mammogram, and 10/16/2020 mammogram - [facility]. 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 Bravo (Breast Surgeon) on 10/07/2021 Final pathology reports Invasive mammary carcinoma with mixed ductal and lobular features, 7 mm (margins clear), Grade 2, 0/2 LN, -LVI ER+, NH+, HER2- PATHOLOGICAL STAGE RIGHT BREAST: p,T1b,N0 She initially presented on 09/26/2021 with a RIGHT breast 6 mm invasive mammary cancer at 1:00, 3 cmFN[address] 4 mm but normal - no need for bx, per discussion with radiology. ER+NH+HER2- [id number] Genetic testing was negative (11/2021) LDEX Score 1.4 RIGHT arm (09/26/2021) LDEX Score 1.1 RIGHT arm (today) ([facility] BR007 trial participate)- randomized not to receive [...] which included preparing to see the patient, llqd-yn-qofy patient care, completing clinical documentation, obtaining and/or reviewing separately obtained history, performing a medically appropriate examination, counseling and educating the pat ient/family/caregiver, and ordering medications, tests, or procedures. Dana Flores PA-C cc: Akira Pierre [address] [place] [address] documented in this encounterWadsworth-Rittman Hospital02-15-2023 Nurse Note* Maria De Jesus Verma [...] weekly Drug use: No documented in this encounterWadsworth-Rittman Hospital02-13-2023 History of Present illness Narrative* Cydney [...] 21, 2022 2:04 PM documented in this encounterWadsworth-Rittman Hospital01-16-2023 Miscellaneous Notes* Telephone Encounter - Nils Saenz - 03/24/2022 2:43 PM EST 1st-time treatment report. The patient is currently being seen for a non- oncology regimen. No navigator services are needed at this time. documented in this encounterWadsworth-Rittman Hospital01-11-2023 Miscellaneous Notes* Telephone Encounter - Adrianne Luis Pss - 03/19/2022 11:15 AM EST I called and spoke to Rebeca and rescheduled her for 6 weeks after her dental work, she confirmed the new date/time 05/05/22 @ 3:30 pm Adrianne Luis Pss * Telephone Encounter - Marguerite Blas LPN - 03/18/2022 5:03 PM EST [...] scanning. Pilar Davidson LPN documented in this encounterWadsworth-Rittman Hospital12-07-2022 History of Present illness Narrative* Yenny [...] On-Call number for the On-Call Oncology Fellow ([phone]). DANA Bond, RN Clinical Research Nurse [phone] documented in this encounterWadsworth-Rittman Hospital12-07-2022 History of Present illness Narrative* Nahun Zavaleta, DO - 02/12/2022 3:00 PM EST Oncologic problem(s): 1) pT1b pN0(sn) M0 ER/NH positive, HER2 negative stage IA infiltrating ductal [...] ER +91 to 100%, strong staining intensity. NH positive, 81 to 90%, strong staining intensity HER2 negative, 1+ on IHC. 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 [...] gallop or murmur. BREAST: Nurse acted as hitcher. There is a well-healed curvilinear incision around the upper portion of the right areola. Second incision in the axilla. Well-healed. Atrophic scar off the breast superior and laterally from previous bra strap injury. No mass or nodule appreciated in either breast. ABDOMEN: The abdomen is nondistended. No organomegaly. No tenderness. Extremities: No swelling or edema. SKIN: No jaundice or rash. No petechiae. 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 No focal motor weakness. MUSCULOSKELETAL: No muscle wasting. ASSESSMENT/PLAN: (C50.211, Z17.0) Malignant neoplasm of 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, estrogen receptor positive (HCC) (primary encounter diagnosis) (Z00.6) Examination of participant in clinical trial Assessment: -The patient is a 56-year-old postmenopausal female (no menses in 3 years) who was diagnosed with apT1b pN0 M0 ER/NH positive, HER2 negative stage IA mixed invasive [...] with more than 50% of the total bqgd-zf-gnbk time of the visit in reviewing treatment rationale, plan of care and coordination of care. Nahun Zavaleta DO documented in this encounterWadsworth-Rittman Hospital12-07-2022 History of Present illness Narrative* Yenny [...] 02/13/2022 Drawn at 2:40 PM Shipped to [facility] for joining with Baseline to be shipped to sponsor - Sent Fedex - Emailed and updated Heriberto Juarez at [facility]. Shipped 14 Cryovials: 4 EDTA - PLS 1 EDTA - BC 4 Serum 4 STK- PLS 1 STK - BC Patient to RTC in 3 months. Yenny Posadas RN [phone] documented in this encounterWadsworth-Rittman Hospital11-22-2022 Miscellaneous Notes* Telephone Encounter - Tram [...] the Lab Appointment Note reading LABS/CLINICAL TRIAL DRAW/DENTAL INSTRUMENT MAKER. Once rescheduled, document and route this note to Yenny Posadas. Amaya Laureano documented in this encounterWadsworth-Rittman Hospital10-14-2022 History of Present illness Narrative* Akira Pierre MD - 12/20/2021 9:20 AM EDT This note was created using [employer] Local[employer]. Subjective Rebeca Wilson is a 56 year [...] TABLET Akira Pierre MD documented in this encounterWadsworth-Rittman Hospital09-26-2022 Miscellaneous Notes* Telephone Encounter - Yenny Posadas RN - 12/02/2021 10:56 AM EDT Consent signed November 18, 2021 Randomized 11/18/2021 Treatment ARM: HT - TA2 Called patient back at this time - updated that patient has started study hormone therapy today 12.02.2021. Patient denies any questions or concerns at this time. Yenny Posadas RN [phone] documented in this encounterWadsworth-Rittman Hospital09-20-2022 History of Present illness Narrative* Yenny [...] 11/25/2021 Drawn at 10:19 AM Shipped to [facility] for storage until 3 month post randomization draw - Sent with [employer] at 11:51 AM - Called and updated Heriberto Juarez at [facility]. Shipped 14 Cryovials: 4 EDTA - PLS 1 EDTA - BC 4 Serum 4 STK- PLS 1 STK - BC Patient to RTC in 3 months - Patient to call with update on when she received and started her endocrine therapy. Yenny Posadas RN [phone] documented in this encounterWadsworth-Rittman Hospital09-16-2022 Miscellaneous Notes* Telephone Encounter - OCTAVIA Mei - 11/22/2021 2:32 PM EDT Results left on patient voicemail. Rebeca Wilson's Custom Cancer Panel through [employer] was negative for a pathogenic variant. Please see [employer] message for further discussion. OCTAVIA Mei Licensed, Certified Genetic Counselor documented in this encounterWadsworth-Rittman Hospital09-14-2022 Miscellaneous Notes* Telephone Encounter - Yenny Posadas RN - 11/20/2021 9:49 AM EDT Left a voicemail at this time. 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 18 on diagnostic core biopsy or resected specimen. For patients with a T1a tumor (? 0.5 cm in size) who do not already have an Oncotype DX Recurrence Score at study entry, a specimen (unstained blocks or slides) must be sent to the [facility] centralized laboratory. Patient Oncotype 10 - Scanned [...] Stage IA (pT1b, pN0(sn), cM0, G2, ER+, NH+, HER2-, Oncotype DX score: 10) - Signed by Caitlin Suarez MD on 11/15/2021 3.2.11 The tumor must have been determined to be HER2-negative by current ASCO/CAP guidelines. Pathologic stage from 10/24/2021: Stage IA (pT1b, pN0(sn), cM0, G2, ER+, NH+, HER2-, Oncotype DX score: 10) - Signed [...] Stage IA (pT1b, pN0(sn), cM0, G2, ER+, NH+, HER2-, Oncotype DX score: 10) - Signed by Caitlin Suarez MD on 11/15/2021 3.3.2 pT2 - pT4 tumors including inflammatory breast cancer. N/A Pathologic stage from 10/24/2021: Stage IA (pT1b, pN0(sn), cM0, G2, ER+, NH+, HER2-, Oncotype DX score: 10) - Signed by Caitlin Suarez MD on 11/15/2021 3.3.3 Pathologic staging of pN0(i+) or pN0(mol+), pN1, pN2, or pN3 disease.N/A Pathologic stage from 10/24/2021: Stage IA (pT1b, pN0(sn), cM0, G2, ER+, NH+, HER2-, Oncotype DX score: 10) - Signed by Caitlin Suarez MD on 11/15/2021 3.3.4 Patient had a mastectomy. Patient Denies - Chart Reviewed 11/15/2021 3.3.5 Palpable or radiographically suspicious ipsilateral or contralateral axillary, supraclavicular, infraclavicular, or internal mammary nodes, unless there is histologic confirmation that these nodes are negative for tumor. Pathologic stage from 10/24/2021: Stage IA (pT1b, pN0(sn), cM0, G2, ER+, NH+, HER2-, Oncotype DX score: 10) - Signed by Caitlin Suarez MD on 11/15/2021 Reviewed Caitlin Suarez Note 11/15/2021 3.3.6 Suspicious microcalcifications, densities, or palpable abnormalities (in the ipsilateral or contralateral breast) unless biopsied and found to be benign.Pathologic stage from 10/24/2021: StageIA (pT1b, pN0(sn), cM0, G2, ER+, NH+, HER2-, Oncotype DX score: 10) - Signed [...] clear), Grade 2, 0/2 LN, -LVI ER+, NH+, HER2- Dana Flores PA-C 10/15/2021 3.3.13 Treatment [...] conditions that, in the opinion of the fugitive investigator, would preclude the patient from meeting [...] number for the On- Call Oncology Fellow ([phone]). DANA Bond, RN Clinical Research Nurse [phone] documented in this encounterWadsworth-Rittman Hospital09-12-2022 History of Present illness Narrative* Yenny Posadas RN - 11/18/2021 5:28 PM EDT Consent signed November 18, 2021 - please see attached consent Randomized 11/18/2021 Treatment ARM: HT - TA2 Yenny Posadas RN documented in this encounterWadsworth-Rittman Hospital09-09-2022 Miscellaneous Notes* Telephone Encounter - Akira Pierre MD - 11/15/2021 7:08 PM EDT Okayed * Telephone Encounter - Nima Hinojosa Ma - 11/15/2021 11:14 AM EDT RODRIGO: 06/07/2021 distance health Last refill: 06/07/2021 QTY: 90 Refills: 1 documented in this encounterWadsworth-Rittman Hospital09-09-2022 History of Present illness Narrative* Yenny Posadas RN - 11/15/2021 2:11 PM EDT Informed Consent Presentation IRB# [id number] Title: A Phase III Clinical Trial Evaluating [...] 2021 Yenny Posadas RN documented in this encounterWadsworth-Rittman Hospital09-09-2022 History of Present illness Narrative* Caitlin Suarez MD - 11/15/2021 9:20 AM EDT [facility] DISTANCE HEALTH VISIT This visit is a [facility] encounter which required patient- provider interaction for the medical decision making as documented below. Persons Present: patient Rebeca Wilson has consented to this distance health encounter. Total Time Spent: I spent a total of 30 minutes on the date of the service which included ozpk-ze-payr patient care, completing clinical documentation, obtaining and/or [...] Stage IA (pT1b, pN0(sn), cM0, G2, ER+, NH+, HER2-, Oncotype DX score: 10) - Signed [...] Right breast core biopsy on 08/20/2021 at [facility] revealed invasive mammary carcinoma with provisional grade 2 with ER+ status at 91-100%, NH+ status at 81-90%, HER2 negative status by IHC score 1+. Family history was positive for breast cancer in her paternal grandmother and maternal aunt x 2. The patient's father of lung cancer. Patient was with menarche age 14 years, age at of first child 19 years, menopause age 53years, no breast feeding. 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 Exemestane was [place] [facility] [place] [address] - [address] [phone] PORTAL TO REGISTERED [facility] (recommended by insurance). DEXA scan showed normal baseline bone density on 10/30/2021. Follow-up early February for follow-up on exemestane tolerance (can be virtual). 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 The tissue of both breasts is [...] is made to exam dated: 10/16/2020 mammogram [facility]. The tissue of right breast is heterogeneously [...] is made to exam dated: 10/16/2020 mammogram [facility]. Color flow and real-time ultrasound of [...] is recommended. HISTO PATHOLOGICAL REPORT: SURGICAL PATHOLOGY: [id number] Collected 08/20/2021 10:14 AM Status: Final result [...] features. (The E-cadherin stain was performed at [facility] and interpretedat [facility] There is focal lobular neoplasia (either atypical lobular hyperplasia or lobularcarcinoma in situ), as demonstrated by the presence of [id number] myoepithelial cells. Immunohistochemical stains for ER and NH were performed with results in a linked report. HER-2 evaluation was performed at [facility] with results in a linked report. [...] expected External controls: appropriately stained Progesterone Receptor (NH) Positive 81-90 % Stain intensity: strong Internal controls: present and stained as expected External controls: appropriately stained Tissue Analyzed: Invasive carcinoma Tumor Grade: Breast Tumor Grade: Grade 2 SURGICAL PATHOLOGY: [id number] Collected 10/07/2021 FINAL DIAGNOSIS A. Right axilla, sentinel lymph nodes, excision: -Two lymph nodes, negative for metastatic carcinoma (0/2), (please see comment). B. Right breast, lumpectomy: - Invasive mammary carcinoma with mixed ductal and lobular features, Ephraim grade 2, measuring 7 mm in greatest dimension, (please see comment and synoptic report). - Biopsy site changes, biopsy clip, and GREGORY coin dealer identified - The surrounding breast parenchyma shows [...] mixed ductal and lobular features Histologic Grade (Chilton Histologic Score) Glandular (Acinar) / Tubular Differentiation [...] Examined (sentinel and non-sentinel) 2 Number of [place] Nodes Examined 2 PATHOLOGIC STAGE CLASSIFICATION (pTNM, [...] Category pT1b Regional Lymph Nodes Modifier (sn): [place] node(s) evaluated. pN Category pN0 Breast Biomarker [...] Liza D. Talampas, MD documented in this encounterWadsworth-Rittman Hospital09-01-2022 History of Present illness Narrative* Thu Blayne, OTR/L - 11/07/2021 11:23 AM EDT Episode Visit Count: 1 Therapist That Will Oversee The Plan Of Care: blayne Start of Care Date: 11/07/21 Onset Date: 10/07/21 Patient Identified by Name and Date of : Yes [facility] OCCUPATIONAL THERAPY EVALUATION [...] Planned: 4 Planned Treatment Interventions: Therapeutic exercise (19215);Manual therapy (45933);Self-care homemanagement (99511) PLAN FOR NEXT VISIT: Progress note- reassess [...] History Right or Left Handed: Right 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 HIGH LEVEL SUMMARY: The patient's personal and family history is potentially suggestive of a hereditary cancer syndrome. The patient provided informed consent for Custom Cancer Panel through [employer]. Results are expectedin 2-3 weeks. IDENTIFICATION AND [...] Transvaginal Ultrasound: Yes / most recent in [facility] 08/2015 Dermatology: No Thyroid Goiter, most [...] great-grandmother The patient's maternal ancestors are of Serbian descent and paternal ancestors are of descent. There is no Ashkenazi Confucianism ancestry. There is no known consanguinity. A [...] is detected, the National Comprehensive Cancer Network and/hca midwest division opinion recommendations would include increased cancer surveillance [...] appropriate standard National Comprehensive Cancer Network and [place] Cancer Society guidelines, with consideration of their [...] SDHAF2, SDHB, SDHC, SDHD, SMAD4, SMARCA4, STK11, IEMO677, TP53, TSC1, TSC2, and VHL We discussed [...] greater than 50% of which was spent [id number]-ed-[id number] counseling. This plan is being carried out per Dr. Maggie Garcia's recommendations. This note will also be sent to the referring provider via the electronic medical record. Rupa Chacon MS, [facility] Licensed, Certified Genetic Counselor EPIC CC: Dr. Amaya Garcia EDUCATIONAL INFORMATION SUPPLIED TO PATIENT AT ENCOUNTER: None INFORMATION TO BE MAILED TO PATIENT None documented in this encounterWadsworth-Rittman Hospital08-24-2022 History of Present illness Narrative* RT [...] 30, 2021 12:49 PM documented in this encounterWadsworth-Rittman Hospital08-23-2022 Miscellaneous Notes* Telephone Encounter - Amaya Laureano - 10/29/2021 2:19 PM EDT Scheduled with Dr. Byrd as directed. Amaya Laureaon * Telephone Encounter - Shaneka Salamanac - 10/25/2021 10:19 AM EDT Images from the original note were not included. Per note below: Gladis Byrd MD, MD Wstr Hem/Onc Psr 19 minutes ago (9:54 AM) Please schedule a follow-up with me in 3 weeks to discuss Oncotype Dx test score and possible NR BR-007 clinical trial. Thanks. PT scheduled as directed. Shaneka Salamanca documented in this encounterWadsworth-Rittman Hospital08-18-2022 History of Present illness Narrative* Caitlin Suarez MD - 10/24/2021 11:28 AM EDT Referring physician: Amaya Bravo DO Presenting complaint: Patient Rebeca Wilson returns for breast cancer. Cancer Staging Malignant neoplasm of 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, estrogen receptor positive (HCC) Staging form: Breast, AJCC 8th Edition - Pathologic stage from 10/24/2021: Stage IA (pT1b, pN0(sn), cM0, G2, ER+, NH+, HER2-) - Signed by Caitlin Suarez MD [...] Right breast core biopsy on 08/20/2021 at [facility] revealed invasive mammary carcinoma with provisional grade 2 with ER+ status at 91-100%, NH+ status at 81-90%, HER2 negative status by IHC score 1+. Family history was positive for breast cancer in her paternal grandmother and maternal aunt x 2. The patient's father of lung cancer. Patient was with menarche age 14 years, age at of first child 19 years, menopause age 53years, no breast feeding. Plan: Patient underwent right breast GREGORY coin dealer localized lumpectomy and right sentinel lymph node biopsyon 10/07/2021. Pathology revealed invasive mammary carcinoma with mixed ductal and lobular features with Chilton grade 2 measuring 7 mm in greatest [...] with more than 50% of the total ftlq-mb-adhx time of the visit in counseling / coordination of care. 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 Pathology revealed invasive mammary carcinoma with mixed ductal and lobular features with Chilton grade 2 measuring 7 mm in greatest [...] 08/13/2015 2.65 1.00 - 4.00 k/uL Final Grimes% Date Value Ref Range Status 08/13/2015 5.2 % Final Abs Grimes Date Value Ref Range Status 08/13/2015 0.39 [...] mammogram, 05/15/2014 mammogram, and 10/27/2011 mammogram - [facility]. The tissue of both breasts is [...] made to exam dated: 10/16/2020 mammogram - [facility]. The tissue of right breast is heterogeneously [...] made to exam dated: 10/16/2020 mammogram - [facility]. Color flow and real-time ultrasound of [...] is recommended. HISTO PATHOLOGICAL REPORT: SURGICAL PATHOLOGY: [id number] Collected 08/20/2021 10:14 AM Status: Final result [...] features. (The E-cadherin stain was performed at [facility] and interpretedat [facility].) There is focal lobular neoplasia (either atypical lobular hyperplasia or lobularcarcinoma in situ), as demonstrated by the presence of RHYJ-6-ffwbyffu myoepithelial cells. Immunohistochemical stains for ER and NH were performed with results in a linked report. HER-2 evaluation was performed at [facility] with results in a linked report. [...] expected External controls: appropriately stained Progesterone Receptor (NH) Positive 81-90 % Stain intensity: strong Internal controls: present and stained as expected External controls: appropriately stained Tissue Analyzed: Invasive carcinoma Tumor Grade: Breast Tumor Grade: Grade 2 SURGICAL PATHOLOGY: [id number] Collected 10/07/2021 FINAL DIAGNOSIS A. Right axilla, sentinel lymph nodes, excision: -Two lymph nodes, negative for metastatic carcinoma (0/2), (please see comment). B. Right breast, lumpectomy: - Invasive mammary carcinoma with mixed ductal and lobular features, Ephraim grade 2, measuring 7 mm in greatest dimension, (please see comment and synoptic report). - Biopsy site changes, biopsy clip, and GREGORY coin dealer identified - The surrounding breast parenchyma shows [...] mixed ductal and lobular features Histologic Grade (Chilton Histologic Score) Glandular (Acinar) / Tubular Differentiation [...] Examined (sentinel and non-sentinel) 2 Number of [place] Nodes Examined 2 PATHOLOGIC STAGE CLASSIFICATION (pTNM, [...] Category pT1b Regional Lymph Nodes Modifier (sn): [place] node(s) evaluated. pN Category pN0 Breast Biomarker [...] Liza D. Talampas, MD documented in this encounterWadsworth-Rittman Hospital08-18-2022 Nurse Note* Lilo Rock RN - 10/24/2021 9:57 AM EDT Images from the original note were not included. Radiation Therapy - Nursing Note (Follow-up) PATIENT NAME: Rebeca Wilson PATIENT October 24, 2021 [facility] FACILITY/LOCATION: [place] Reason for visit: Follow up to discuss treatment options. Subjective Data I am doing well, the surgery was not as bad as I thought it would be. My energy is returning. I will get a twinge in the right breast on and off. Additional Data Do you want to see a Township Supervisor? No Difficulty performing or completing routine daily [...] 10:00 AM Jose E Bettencourt MD RADRST [facility] Stro 10/24/2021 10:50 AM Caitlin Suarez MD HEMAST [facility] 10/30/2021 1:00 PM BONE DENSITY [facility] WSTR BONEWS [place] 11/04/2021 11:30 AM OCTAVIA Mei GMINST [facility] 11/07/2021 11:00 AM LEOLA Luther/Amari OTSTST [facility] 12/20/2021 9:20 AM Akira Pierre MD INTMWS [facility] [place] 04/23/2022 10:00 AM Dana Flores PA-C WMHLST [facility] Stro 07/01/2022 8:40 AM Trina [facility]orgensen [facility] SIGNED by: Lilo Rock, RN documented in this encounterWadsworth-Rittman Hospital08-18-2022 History of Present illness Narrative* Jose E Bettencourt MD - 10/24/2021 8:18 AM EDT Radiation Oncology Follow Up Note PATIENT NAME: Rebeca Wilson PATIENT DIAGNOSIS: 56 year old woman with invasive mammary carcinoma of the right breast, UIQ, pC6aT2X7, pT1bN0(sn) cM0, clinical prognostic Stage IA, pathologic prognostic Stage IA, s/p: Right partial mastectomy/SLNB 10/07/21 [IMC with IDC/ILC features, Gr II, 7 mm, margins-, additional margins-, LVI-, ER+(>90%)/NH+(81-90%)/HER2-; 0/2 SLN] INTERVAL HISTORY: Mrs. Wilson presented [...] invasive mammary carcinoma, provisional histologic grade 2, ER+(>90%)/NH+(81-90%)/HER2-. Dr. Bravo performed a right partial mastectomy [...] mammary carcinoma of the right breast, UIQ, [id number], pT1bN0(sn) cM0, clinical prognostic Stage IA, pathologic prognostic Stage IA, s/p: Right partial mastectomy/SLNB 10/07/21 [IMC with IDC/ILC features, Gr II, 7 mm, margins-, additional margins-, LVI-, ER+(>90%)/NH+(81-90%)/HER2-; 0/2 SLN] Mrs. Wilson has early stage [...] Radiat Oncol 2017 May - Jun;7(2):73-79. PMID: [id number]) (Accelerated Partial-Breast Irradiation Compared With Whole-Breast Irradiation for Early Breast Cancer: Long-Term Results of the Randomized Phase III IOIZ-HNVW-Hwzjuvvu Trial. JClin Oncol 2020 ;38(82):2781- 2734. PMID: [id number]). This study showed equivalent cancer control rates and survival with less acute and late toxicity. She lives in [place], [place] and would like treatment closer to home.Follow-up with Dr. Byrd will be requested for approximately 3 weeks, allowing time for Oncotype DX testing. This visit should be coordinated with clinical trials nursing as she is interested in participating in [facility] BR007 pending Oncotype DX testing results. Approximately 25 minutes were spent with the patient, >50% of which was spent on treatment counseling. 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 Laboratory Developed Test (LDT) Disclaimer: Performance characteristics of immunohistochemical, immunofluorescent and chromogenic in-situ hybridization tests have been determined by the performing laboratory within [facility] [place] ([facility], [facility], [facility] or [facility]) in a manner consistent with CLIA requirements. [...] Examined (sentinel and non-sentinel) 2 Number of [place] Nodes Examined 2 PATHOLOGIC STAGE CLASSIFICATION (pTNM, [...] Category pT1b Regional Lymph Nodes Modifier (sn): [place] node(s) evaluated. 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 Bravo (Breast Surgeon) on 10/07/2021 Final pathology reports Invasive mammary carcinoma with mixed ductal and lobular features, 7 mm (margins clear), Grade 2, 0/2 LN, -LVI ER+, NH+, HER2- PATHOLOGICAL STAGE RIGHT BREAST: p,T1b,N0 POST OPERATIVE STATUS: Uncomplicated post-operative course, She initially presented on 09/26/2021 with a RIGHT breast 6 mm invasive mammary cancer at 1:00, 3 cmFN[address] 4 mm but normal - no need for bx, per discussion with radiology. ER+NH+HER2- [id number] PLAN Pathology report reviewed by (Breast Surgeon) [...] interim. Dana Flores PA-C documented in this encounterWadsworth-Rittman [facility]08-09-2022 Nurse Note* Maria De Jesus Verma LPN - 10/15/2021 9:00 AM EDT Post op Did patient bring outside records to appt today? : No Last mammogram on: 10/02/2021 bilateral Results: see report Is the patient active on [employer] Yes Electronically Signed By: Maria De Jesus [...] weekly Drug use: No documented in this encounterWadsworth-Rittman [facility]08-01-2022 Miscellaneous Notes* Brief Op Note - Amaya Bravo DO - 10/07/2021 10:03 AM EDT BRIEF OPERATIVE / PROCEDURE NOTE LOG ID: [id number] SURGERY/PROCEDURE DATE: 10/07/2021 INCISION/PROCEDURE START TIME: 9:07 AM INCISION CLOSE/PROCEDURE END TIME: SURGEON(S)/PROCEDURALIST(S) AND ORDER BUILDER(S): Surgeon(s) and Role: * Amaya Bravo DO - Primary * Keshawn Esquivel MD - Resident - Assisting SURGERY/PROCEDURE(S): RIGHT breast gregory coin dealer localized lumpectomy, SLNB ANESTHESIA: General FINDINGS: gregory [...] 2021 TIME: 10:03 AM documented in this encounterWadsworth-Rittman Hospital08-01-2022 History and physical note * Keshawn [...] who is scheduled for RIGHT breast gregory coin dealer localized lumpectomy, RIGHT sentinel lymph node mapping [...] fevers. Neurological: No history of TIA's, stroke, ACTUARIAL ASSOCIATE tumor, impaired sensorium, hemiplegia, paraplegia orquadraplegia. No neurological symptoms or problems. Respiratory: Positive for: prior COVID-19 infection. Date of COVID-19 infection: 09/11/21 - Head congestion. Negative for: asthma, bronchitis, COPD, current cough, dyspnea, home oxygen, orthopnea, pneumonia within 6 weeks and obstructive sleep apnea. Cardiovascular: No history of HTN requiring medication, no history of angina, CHF, OR, cardiac surgery or stents. Denies rest pain, [...] > 1 time per night or hematuria. CHEESE SPECIALIST: Negative for abnormal vaginal bleeding, abnormal vaginal [...] or any previous visit (from the past 58343 hour(s)). Assessment Invasive ductal carcinoma of breast, [...] 35 kg/m^2 Non-male patient STOP-Bang Score: 4 [id number] Score: Age: <65 Sex: female CHF history: No Hypertension history: No Stroke/TIA/thromboembolism history: No Vascular disease history: No Diabetes history: No [id number] Score: 1 ASA Class: 2 ANESTHESIA FINDINGS: [...] 9:03 AM PAGER/CONTACT #: documented in this encounterWadsworth-Rittman [facility]08-01-2022 History of Present illness Narrative* Lourdes [...] Not applicable PROCEDURE TYPE: NM INJECT: NM [place] Node. 474.9 microcuries Tc99m SULFUR COLLOID . 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 Neurological: No history of TIA's, stroke, ACTUARIAL ASSOCIATE tumor, impaired sensorium, hemiplegia, paraplegia orquadraplegia. No neurological symptoms or problems. Respiratory: Positive for: prior COVID-19 infection. Date of COVID-19 infection: 09/11/21 - Head congestion. Negative for: asthma, bronchitis, COPD, current cough, dyspnea, home oxygen, orthopnea, pneumonia within 6 weeks and obstructive sleep apnea. Cardiovascular: No history of HTN requiring medication, no history of angina, CHF, OR, cardiac surgery or stents. Denies rest pain, [...] > 1 time per night or hematuria. CHEESE SPECIALIST: Negative for abnormal vaginal bleeding, abnormal vaginal [...] or any previous visit (from the past 40164 hour(s)). Assessment Invasive ductal carcinoma of breast, [...] 35 kg/m^2 Non-male patient STOP-Bang Score: 4 [id number] Score: Age: <65 Sex: female CHF history: No Hypertension history: No Stroke/TIA/thromboembolism history: No Vascular disease history: No Diabetes history: No [id number] Score: 1 ASA Class: 2 ANESTHESIA FINDINGS: [...] 9:03 AM PAGER/CONTACT #: documented in this encounterWadsworth-Rittman Hospital07-29-2022 Instructions* Patient Instructions* Janett Casey APRN.CNP - 10/04/2021 9:02 AM EDT PATIENT PREOPERATIVE INSTRUCTIONS Amaya Bravo DO has scheduled you for your procedure at this surgery center: [facility]: [phone] --[id number] [place] [address]. Please read below carefully for your personalized [...] Procedures: - YOU MUST HAVE A RESPONSIBLE COMMERCIAL RELIEF DRIVER TAKE YOU HOME. A STATOR PLATE WASHER OR STRUCTURAL DRAFTER CANNOT BE MADE A RESPONSIBLE COMMERCIAL RELIEF DRIVER. - We recommend that a responsible person [...] Advance Directive, please fax a copy to [phone] or email to for it to be [...] scanned into your chart that day. Janett Casey APRN.CNP documented in this encounterWadsworth-Rittman Hospital07-27-2022 NoteIMPRESSION: POST PROCEDURE MAMMOGRAM FOR MARKER PLACEMENT There is no mammographic evidence of malignancy in the left breast. There was a successful marker clip placement in the right breast posterior depth. SUMMARY: The patient is under the care of Dr. Bravo. Kenyetta Trevino M.D., cp/morales:10/02/2021 15:30:19 Pharmaceutical Process Engineer(s): RT Tanisha(R)(M), [facility] Mammogram BI-RADS: Post-procedure mammogram for marker placement [...] Health, Family Medicine, and Medical/Surgical Oncology, the [facility] has carefully reviewed the data and [...] their providers when to stop screening mammograms. 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 documented in this encounterWadsworth-Rittman Hospital07-27-2022 Instructions* Patient Education - Traci Christopher RT(R) - 10/02/2021 2:18 PM EDT Verbal post procedure instructions were given to the patient. [facility]07-27-2022 Miscellaneous Notes* Patient Education - Traci Christopher RT(R) - 10/02/2021 2:18 PM EDT Verbal post procedure instructions were given to the patient. documented in this encounterWadsworth-Rittman Hospital07-21-2022 Instructions* Patient Instructions* Caitlin Suarez MD [...] your usual activities immediately. documented in this encounterWadsworth-Rittman Hospital07-21-2022 History of Present illness Narrative* Caitlin [...] Right breast core biopsy on 08/20/2021 at [facility] revealed invasive mammary carcinoma with provisional grade 2 with ER+ status at 91-100%, NH+ status at 81-90%, HER2 negative status by [...] preliminary diagnosis of clinical prognostic stage IA ([id number]) invasive mammary carcinoma with favorable hormone positive [...] with more than 50% of the total nksc-sp-rcra time of the visit in counseling / [...] Right breast core biopsy on 08/20/2021 at [facility] revealed invasive mammary carcinoma with provisional grade 2 with ER+ status at 91-100%, NH+ status at 81-90%, HER2 negative status by [...] 5' 5.472[shoes off and verified by RS, [employer][ (1.66m) Wt 194 lb 14.4 oz (88.4kg) [...] 08/13/2015 2.65 1.00 - 4.00 k/uL Final Grimes% Date Value Ref Range Status 08/13/2015 5.2 % Final Abs Grimes Date Value Ref Range Status 08/13/2015 0.39 [...] mammogram, 05/15/2014 mammogram, and 10/27/2011 mammogram - [facility]. The tissue of both breasts is [...] made to exam dated: 10/16/2020 mammogram - [facility]. The tissue of right breast is heterogeneously [...] made to exam dated: 10/16/2020 mammogram - [facility]. Color flow and real-time ultrasound of [...] is recommended. HISTO PATHOLOGICAL REPORT: SURGICAL PATHOLOGY: [id number] Collected 08/20/2021 10:14 AM Status: Final result [...] features. (The E-cadherin stain was performed at [facility] and interpretedat [facility] There is focal lobular neoplasia (either atypical lobular hyperplasia or lobularcarcinoma in situ), as demonstrated by the presence of [id number] myoepithelial cells. Immunohistochemical stains for ER and NH were performed with results in a linked report. HER-2 evaluation was performed at [facility] with results in a linked report. [...] expected External controls: appropriately stained Progesterone Receptor (NH) Positive 81-90 % Stain intensity: strong Internal controls: present and stained as expected External controls: appropriately stained Tissue Analyzed: Invasive carcinoma Tumor Grade: Breast Tumor Grade: Grade 2 Caitlin Suarez MD September 26, 2021 Cc: DO Jose E Nguyen MD Liza D. Talampas, MD documented in this encounterWadsworth-Rittman Hospital07-21-2022 Nurse Note* Lilo Rock RN - 09/26/2021 11:47 AM EDT Images from the original note were not included. Radiation Therapy - Nursing Note (Consult) PATIENT NAME: Rebeca Wilson PATIENT September 26, 2021 [facility] FACILITY/LOCATION: [facility] Chief Complaint: Breast cancer Reason for visit: Consult. Referring physician: Internal provider Dr. Bravo Subjective Data: I am planning on lumpectomy. If radiation is recommended I will like to do it closer to my home in [place]. Additional Data Do you want to see a Township Supervisor? No Are you interested in information about [...] oxygen in the home? No Employment: Employed: [employer] ADVANCED DIRECTIVES: Does the patient have an [...] by: Lilo Rock RN documented in this encounterWadsworth-Rittman Hospital07-21-2022 History of Present illness Narrative* Jose E Bettencourt MD - 09/26/2021 10:50 AM EDT Radiation Oncology - New Patient/Consult Note PATIENT NAME: Rebeca Wilson PATIENT REQUESTING PROVIDER: Amaya Bravo DO DIAGNOSIS: 56 year old woman with invasive mammary carcinoma of the right breast, UIQ, [id number], clinical prognostic Stage IA [bx Gr 2, ER+(>90%)/NH+(81-90%)/HER2-] HPI: 56 year old female who presents [...] invasive mammary carcinoma, provisional histologic grade 2, ER+(>90%)/NH+(81-90%)/HER2-. 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 Residence: [place], [place] COMPLETE REVIEW OF SYSTEMS: GENERAL: Negative [...] mammary carcinoma of the right breast, UIQ, [id number], clinical prognostic Stage IA [bx Gr 2, ER+(>90%)/NH+(81-90%)/HER2-] Mrs. Wilson appears to have early stage, favorable right breast cancer with disease characteristics fitting for partial breast radiation per Azam guidelines. We discussed treatment over 5 fractions, every other day per Marion et al. we also discussed consideration of participation on NRG BR007. She lives in [place] and will prefer having her treatment there. [...] DO Elnora Spradling, MD documented in this encounterWadsworth-Rittman Hospital07-21-2022 History of Present illness Narrative* Kenyetta [...] radiology planning purposes only. documented in this encounterWadsworth-Rittman Hospital07-21-2022 History of Present illness Narrative* Amaya Bravo DO - 09/26/2021 9:00 AM EDT NEW BREAST CANCER - INITIAL SURGICAL VISIT SERVICE DATE: 09/20/2021 REFERRING PROVIDER: Dr. Prashant Myers General Surgery [facility] SUBJECTIVE: REASON FOR TODAY'S VISIT: Breast Cancer [...] Invasive mammary carcinoma Grade 2, ER positive, NH positive, HER2 non-amplified. Patient denies any other [...] mammogram, 05/15/2014 mammogram, and 10/27/2011 mammogram - [facility]. The tissue of both breasts is [...] is made to exam dated: 10/16/2020 mammogram [facility]. The tissue of right breast is heterogeneously [...] is made to exam dated: 10/16/2020 mammogram [facility]. Color flow and real-time ultrasound of [...] features. (The E-cadherin stain was performed [facility] [place] [facility] There is focal lobular neoplasia (either atypical lobular hyperplasia or lobularcarcinoma in situ), as demonstrated by the presence of [id number] myoepithelial cells. Immunohistochemical stains for ER and NH were performed with results in a linked report. HER-2 evaluation was performed at [facility] with results in a linked report. The case was reviewed by Dr. Tyson White, who agrees with this assessment. Breast Biomarkers RESULTS: Estrogen Receptor (ER) Positive 91-100 % Stain intensity: strong Progesterone Receptor (NH) Positive 81-90 % Stain intensity: strong Breast [...] need for bx, per discussion with radiology. ER+NH+HER2- [id number] PLAN: DIAGNOSIS: (Z12.31) Screening mammogram, encounter for [...] proceed. Consent was signed for: RIGHT breast gregory coin dealer localized lumpectomy, RIGHT sentinel lymph node mapping and biopsy A tentative surgical date for 10/07/21 was given at [facility] All questions were answered and the patient had no further concerns at this time Ms. Wilson was given our contact information if she has any further questions or concerns. Amaya Bravo DO, FACS Breast Surgeon [facility] Cc: Dr. Lucia Suarez documented in this encounterWadsworth-Rittman Hospital07-21-2022 Nurse Note* Maria De Jesus Verma [...] work: No Is the patient active on [employer] Yes Electronically Signed By: Maria De Jesus [...] social Drug use: No documented in this encounterWadsworth-Rittman Hospital07-05-2022 Miscellaneous Notes* Telephone Encounter - Maria De Jesus Verma LPN - 09/10/2021 11:38 AM EDT Called and spoke to pt regarding her upcoming appointment with , moved her appointment from 10/10 to 09/26 at 9am, went over additional appointments she may or may not need. Imaging received and what (MMG/US/MRI - radiology reviewed yet? In [facility] Pathology slides sent / reviewed? In [facility] Consults: Breast psych ([facility]) not at this time Med onc yes Requested for same day on 09/26. Rad onc yes requested same day on 09/26 Plastics yes on 09/26 at 1:45pm All questions answered she thanked me for the call. Maria De Jesus Verma LPN documented in this encounterWadsworth-Rittman Hospital06-30-2022 History of Present illness Narrative* Quinton [...] mammary carcinoma. It was strongly ER and NH positive. HER2/lula was negative. Subjective: Blood pressure [...] for definitive surgical treatment. documented in this encounterWadsworth-Rittman Hospital06-14-2022 NoteHNO ID: [id number] Author: RT Demi(R) Service: ? Author Type: [...] BY: RT Demi(R) August 20, 2021 10:21 [facility]06-14-2022 NoteHNO ID: [id number] Author: RT Nata(R) Service: ? Author Type: [...] BY: RT Nata(R) August 20, 2021 9:32 [facility]05-26-2022 NoteHNO ID: [id number] Author: Lourdes Gruber MD Service: ? Author Type: Physician Type: Progress Notes Filed: 08/01/2021 4:14 PM Note Text: Request to review outside films from [facility]. Right ultrasound guided biopsy is requested. Comparison [...] The patient will be contacted by the [facility] breast center to schedule the recommended procedure. The patient is under the care of Dr. Myers for surgical management.[facility]05-26-2022 History of Present illness Narrative* Lourdes Gruber MD - 08/01/2021 4:07 PM EDT Request to review outside films from [facility]. Right ultrasound guided biopsy is requested. Comparison [...] The patient will be contacted by the [facility] breast center to schedule the recommended procedure. The patient is under the care of Dr. Myers for surgical management. documented in this encounterWadsworth-Rittman Hospital05-20-2022 Miscellaneous Notes* Telephone Encounter - Brittany Correa LPN - 07/26/2021 10:16 AM EDT Emailed Madison Costa to scheduled patient for a ultrasound biopsy of Right breast. documented in this encounterWadsworth-Rittman Hospital05-20-2022 History of Present illness Narrative* Quinton Myers MD - 07/26/2021 10:02 AM EDT Attempted to do an ultrasound-guided right breast biopsy. Was unable to see the lesion with any degree of certainty. We will get her scheduled to have this done in [place]. documented in this encounterWadsworth-Rittman Hospital05-17-2022 Miscellaneous Notes* Telephone Encounter - Tita [...] you. Tita Quezada LPN documented in this encounterWadsworth-Rittman Hospital05-17-2022 History of Present illness Narrative* Quinton [...] entered by the nurse and reviewed by ak Nursing Notes: Brittany Correa LPN 07/23/2021 8:11 [...] Quinton Myers III, MD documented in this encounterWadsworth-Rittman Hospital05-17-2022 Nurse Note* Brittany Correa LPN - [...] 01/2020 Brittany Correa LPN documented in this encounterWadsworth-Rittman Hospital05-11-2022 History of Present illness Narrative* Yeimi Cai [employer] - 07/17/2021 8:30 AM EDT Radiology Service [...] DATA: Not applicable SIGNED BY: Yeimi Cai [employer] Shira July 17, 2021 8:41 AM documented in this encounterWadsworth-Rittman Hospital04-25-2022 Instructions* Patient Instructions* Trina Jorgensen MD [...] -Urinate after intercourse -High dose cranberry tablets: [employer] brand or Ellura ([employer]) -D-mannose -Probiotics -Vaginal estrogen if after menopause -Antibiotic prophylaxis -Hiprex- medicine that converts to formaldehye in urine. 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 Comments: Sexual Activity: Yes; Male Contraception: [...] external genitalia normal, normal Bartholin's glands, urethra, La Sal's glands, no vulvar lesions, no cervical lesions, [...] needed Trina Jorgensen MD documented in this encounterWadsworth-Rittman Hospital04-21-2022 Miscellaneous Notes* Telephone Encounter - Akira Pierre MD - 06/27/2021 4:23 PM EDT Patient was seen 06/26 * Telephone Encounter - Celeste Salcedo APRN.CNS - 06/24/2021 12:09 PM EDT Consult placed to general surgery, [facility] elise if willing * Telephone Encounter - Akira Pierre MD - 06/20/2021 4:04 PM EDT Check on patient to make sure sees message. Might need to refer to general surgeon to I&D if either not getting better or if getting worse. documented in this encounterWadsworth-Rittman Hospital04-20-2022 History of Present illness Narrative* Edie [...] entered by the nurse and reviewed by ak Nursing Notes: Vineet Meier RN 06/26/2021 4:06 [...] Low Edie Johnson MD documented in this encounterWadsworth-Rittman Hospital04-20-2022 Nurse Note* Vineet Meier RN - [...] 11/28/2016 Vineet Meier RN documented in this encounterWadsworth-Rittman Hospital04-14-2022 Miscellaneous Notes* Telephone Encounter - Akira Pierre MD - 06/20/2021 4:02 PM EDT See MyChart reply documented in this encounterWadsworth-Rittman Hospital04-01-2022 History of Present illness Narrative* Akira Pierre MD - 06/07/2021 6:00 PM EDT VIRTUAL VISIT PROGRESS NOTE This is a virtual visit using [employer] video visit. 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 Screening, lipid - ICD9: V77.91, ICD10: Z13.220 Further evaluation and treatment as indicated. - LIPID PANEL BASIC 8. 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 and potential exposure - HIV 1 2 [...] which included preparing to see the patient, eqbn-wa-glae patient care, completing clinical documentation, obtaining and/or reviewing separately obtained history, performing a medically appropriate examination, counseling and educating the pat ient/family/caregiver and ordering medications, tests, or procedures Akira Pierre MD documented in this encounterWadsworth-Rittman Hospital03-29-2022 Miscellaneous Notes* Telephone Encounter - Amaya [...] Provider: AKIRA PIERRE MD documented in this encounterWadsworth-Rittman Hospital10-09-2012 History of Past illness Narrative* Problem Noted Date Resolved Date Smoker 12/16/2011 10/02/2015 Last Assessment & Plan: Chantix too pricey. Prefers to try wellbutrin. Smoking 10 cig/day currently. Attempt at quitting on own was unsuccessful. documented as of this encounter (statuses as of 06/04/2021) [facility]10-[facility] History of Past illness Narrative* Problem Noted Date Resolved Date Smoker 12/16/2011 10/02/2015 Last Assessment & Plan: Chantix too pricey. Prefers to try wellbutrin. Smoking 10 cig/day currently. Attempt at quitting on own was unsuccessful. documented as of this encounter (statuses as of 06/07/2021) [facility]10-[facility] History of Past illness Narrative* Problem Noted Date Resolved Date Smoker 12/16/2011 10/02/2015 Last Assessment & Plan: Chantix too pricey. Prefers to try wellbutrin. Smoking 10 cig/day currently. Attempt at quitting on own was unsuccessful. documented as of this encounter (statuses as of 06/20/2021) [facility]10-[facility] History of Past illness Narrative* Problem Noted Date Resolved Date Smoker 12/16/2011 10/02/2015 Last Assessment & Plan: Chantix too pricey. Prefers to try wellbutrin. Smoking 10 cig/day currently. Attempt at quitting on own was unsuccessful. documented as of this encounter (statuses as of 06/26/2021) [facility] History of Past illness Narrative* Problem Noted Date Resolved Date Smoker 12/16/2011 10/02/2015 Last Assessment & Plan: Chantix too pricey. Prefers to try wellbutrin. Smoking 10 cig/day currently. Attempt at quitting on own was unsuccessful. documented as of this encounter (statuses as of 06/27/2021) [facility]10-[facility] History of Past illness Narrative* Problem Noted Date Resolved Date Smoker 12/16/2011 10/02/2015 Last Assessment & Plan: Chantix too pricey. Prefers to try wellbutrin. Smoking 10 cig/day currently. Attempt at quitting on own was unsuccessful. documented as of this encounter (statuses as of 07/01/2021) [facility] History of Past illness Narrative* Problem Noted Date Resolved Date Smoker 12/16/2011 10/02/2015 Last Assessment & Plan: Chantix too pricey. Prefers to try wellbutrin. Smoking 10 cig/day currently. Attempt at quitting on own was unsuccessful. documented as of this encounter (statuses as of 07/18/2021) [facility]10-[facility]-2012 History of Past illness Narrative* Problem Noted Date Resolved Date Smoker 12/16/2011 10/02/2015 Last Assessment & Plan: Chantix too pricey. Prefers to try wellbutrin. Smoking 10 cig/day currently. Attempt at quitting on own was unsuccessful. documented as of this encounter (statuses as of 07/18/2021) [facility] History of Past illness Narrative* Problem Noted Date Resolved Date Smoker 12/16/2011 10/02/2015 Last Assessment & Plan: Chantix too pricey. Prefers to try wellbutrin. Smoking 10 cig/day currently. Attempt at quitting on own was unsuccessful. documented as of this encounter (statuses as of 07/23/2021) [facility] History of Past illness Narrative* Problem Noted Date Resolved Date Smoker 12/16/2011 10/02/2015 Last Assessment & Plan: Chantix too pricey. Prefers to try wellbutrin. Smoking 10 cig/day currently. Attempt at quitting on own was unsuccessful. documented as of this encounter (statuses as of 07/23/2021) [facility] History of Past illness Narrative* Problem Noted Date Resolved Date Smoker 12/16/2011 10/02/2015 Last Assessment & Plan: Chantix too pricey. Prefers to try wellbutrin. Smoking 10 cig/day currently. Attempt at quitting on own was unsuccessful. documented as of this encounter (statuses as of 07/26/2021) [facility] History of Past illness Narrative* Problem Noted Date Resolved Date Smoker 12/16/2011 10/02/2015 Last Assessment & Plan: Chantix too pricey. Prefers to try wellbutrin. Smoking 10 cig/day currently. Attempt at quitting on own was unsuccessful. documented as of this encounter (statuses as of 07/30/2021) [facility] History of Past illness Narrative* Problem Noted Date Resolved Date Smoker 12/16/2011 10/02/2015 Last Assessment & Plan: Chantix too pricey. Prefers to try wellbutrin. Smoking 10 cig/day currently. Attempt at quitting on own was unsuccessful. documented as of this encounter (statuses as of 08/01/2021) [facility] History of Past illness Narrative* Problem Noted Date Resolved Date Smoker 12/16/2011 10/02/2015 Last Assessment & Plan: Chantix too pricey. Prefers to try wellbutrin. Smoking 10 cig/day currently. Attempt at quitting on own was unsuccessful. documented as of this encounter (statuses as of 09/05/2021) [facility] History of Past illness Narrative* Problem Noted Date Resolved Date Smoker 12/16/2011 10/02/2015 Last Assessment & Plan: Chantix too pricey. Prefers to try wellbutrin. Smoking 10 cig/day currently. Attempt at quitting on own was unsuccessful. documented as of this encounter (statuses as of 09/10/2021) [facility] History of Past illness Narrative* Problem Noted Date Resolved Date Smoker 12/16/2011 10/02/2015 Last Assessment & Plan: Chantix too pricey. Prefers to try wellbutrin. Smoking 10 cig/day currently. Attempt at quitting on own was unsuccessful. documented as of this encounter (statuses as of 09/26/2021) [facility] History of Past illness Narrative* Problem Noted Date Resolved Date Smoker 12/16/2011 10/02/2015 Last Assessment & Plan: Chantix too pricey. Prefers to try wellbutrin. Smoking 10 cig/day currently. Attempt at quitting on own was unsuccessful. documented as of this encounter (statuses as of 09/26/2021) [facility] History of Past illness Narrative* Problem Noted Date Resolved Date Smoker 12/16/2011 10/02/2015 Last Assessment & Plan: Chantix too pricey. Prefers to try wellbutrin. Smoking 10 cig/day currently. Attempt at quitting on own was unsuccessful. documented as of this encounter (statuses as of 09/27/2021) [facility] History of Past illness Narrative* Problem Noted Date Resolved Date Smoker 12/16/2011 10/02/2015 Last Assessment & Plan: Chantix too pricey. Prefers to try wellbutrin. Smoking 10 cig/day currently. Attempt at quitting on own was unsuccessful. documented as of this encounter (statuses as of 09/27/2021) [facility] History of Past illness Narrative* Problem Noted Date Resolved Date Smoker 12/16/2011 10/02/2015 Last Assessment & Plan: Chantix too pricey. Prefers to try wellbutrin. Smoking 10 cig/day currently. Attempt at quitting on own was unsuccessful. documented as of this encounter (statuses as of 10/01/2021) [facility] History of Past illness Narrative* Problem Noted Date Resolved Date Smoker 12/16/2011 10/02/2015 Last Assessment & Plan: Chantix too pricey. Prefers to try wellbutrin. Smoking 10 cig/day currently. Attempt at quitting on own was unsuccessful. documented as of this encounter (statuses as of 10/02/2021) [facility] History of Past illness Narrative* Problem Noted Date Resolved Date Smoker 12/16/2011 10/02/2015 Last Assessment & Plan: Chantix too pricey. Prefers to try wellbutrin. Smoking 10 cig/day currently. Attempt at quitting on own was unsuccessful. documented as of this encounter (statuses as of 10/04/2021) [facility] History of Past illness Narrative* Problem Noted Date Resolved Date Smoker 12/16/2011 10/02/2015 Last Assessment & Plan: Chantix too pricey. Prefers to try wellbutrin. Smoking 10 cig/day currently. Attempt at quitting on own was unsuccessful. documented as of this encounter (statuses as of 10/08/2021) [facility] History of Past illness Narrative* Problem Noted Date Resolved Date Smoker 12/16/2011 10/02/2015 Last Assessment & Plan: Chantix too pricey. Prefers to try wellbutrin. Smoking 10 cig/day currently. Attempt at quitting on own was unsuccessful. documented as of this encounter (statuses as of 10/15/2021) [facility] History of Past illness Narrative* Problem Noted Date Resolved Date Smoker 12/16/2011 10/02/2015 Last Assessment & Plan: Chantix too pricey. Prefers to try wellbutrin. Smoking 10 cig/day currently. Attempt at quitting on own was unsuccessful. documented as of this encounter (statuses as of 10/15/2021) [facility] History of Past illness Narrative* Problem Noted Date Resolved Date Smoker 12/16/2011 10/02/2015 Last Assessment & Plan: Chantix too pricey. Prefers to try wellbutrin. Smoking 10 cig/day currently. Attempt at quitting on own was unsuccessful. documented as of this encounter (statuses as of 10/24/2021) [facility] History of Past illness Narrative* Problem Noted Date Resolved Date Smoker 12/16/2011 10/02/2015 Last Assessment & Plan: Chantix too pricey. Prefers to try wellbutrin. Smoking 10 cig/day currently. Attempt at quitting on own was unsuccessful. documented as of this encounter (statuses as of 10/25/2021) [facility] History of Past illness Narrative* Problem Noted Date Resolved Date Smoker 12/16/2011 10/02/2015 Last Assessment & Plan: Chantix too pricey. Prefers to try wellbutrin. Smoking 10 cig/day currently. Attempt at quitting on own was unsuccessful. documented as of this encounter (statuses as of 10/29/2021) [facility] History of Past illness Narrative* Problem Noted Date Resolved Date Smoker 12/16/2011 10/02/2015 Last Assessment & Plan: Chantix too pricey. Prefers to try wellbutrin. Smoking 10 cig/day currently. Attempt at quitting on own was unsuccessful. documented as of this encounter (statuses as of 10/31/2021) [facility] History of Past illness Narrative* Problem Noted Date Resolved Date Smoker 12/16/2011 10/02/2015 Last Assessment & Plan: Chantix too pricey. Prefers to try wellbutrin. Smoking 10 cig/day currently. Attempt at quitting on own was unsuccessful. documented as of this encounter (statuses as of 11/05/2021) [facility] History of Past illness Narrative* Problem Noted Date Resolved Date Smoker 12/16/2011 10/02/2015 Last Assessment & Plan: Chantix too pricey. Prefers to try wellbutrin. Smoking 10 cig/day currently. Attempt at quitting on own was unsuccessful. documented as of this encounter (statuses as of 11/07/2021) [facility] History of Past illness Narrative* Problem Noted Date Resolved Date Smoker 12/16/2011 10/02/2015 Last Assessment & Plan: Chantix too pricey. Prefers to try wellbutrin. Smoking 10 cig/day currently. Attempt at quitting on own was unsuccessful. documented as of this encounter (statuses as of 11/15/2021) [facility] History of Past illness Narrative* Problem Noted Date Resolved Date Smoker 12/16/2011 10/02/2015 Last Assessment & Plan: Chantix too pricey. Prefers to try wellbutrin. Smoking 10 cig/day currently. Attempt at quitting on own was unsuccessful. documented as of this encounter (statuses as of 11/15/2021) [facility] History of Past illness Narrative* Problem Noted Date Resolved Date Smoker 12/16/2011 10/02/2015 Last Assessment & Plan: Chantix too pricey. Prefers to try wellbutrin. Smoking 10 cig/day currently. Attempt at quitting on own was unsuccessful. documented as of this encounter (statuses as of 11/15/2021) [facility] History of Past illness Narrative* Problem Noted Date Resolved Date Smoker 12/16/2011 10/02/2015 Last Assessment & Plan: Chantix too pricey. Prefers to try wellbutrin. Smoking 10 cig/day currently. Attempt at quitting on own was unsuccessful. documented as of this encounter (statuses as of 11/18/2021) [facility] History of Past illness Narrative* Problem Noted Date Resolved Date Smoker 12/16/2011 10/02/2015 Last Assessment & Plan: Chantix too pricey. Prefers to try wellbutrin. Smoking 10 cig/day currently. Attempt at quitting on own was unsuccessful. documented as of this encounter (statuses as of 11/18/2021) [facility] History of Past illness Narrative* Problem Noted Date Resolved Date Smoker 12/16/2011 10/02/2015 Last Assessment & Plan: Chantix too pricey. Prefers to try wellbutrin. Smoking 10 cig/day currently. Attempt at quitting on own was unsuccessful. documented as of this encounter (statuses as of 11/20/2021) [facility] History of Past illness Narrative* Problem Noted Date Resolved Date Smoker 12/16/2011 10/02/2015 Last Assessment & Plan: Chantix too pricey. Prefers to try wellbutrin. Smoking 10 cig/day currently. Attempt at quitting on own was unsuccessful. documented as of this encounter (statuses as of 11/22/2021) [facility] History of Past illness Narrative* Problem Noted Date Resolved Date Smoker 12/16/2011 10/02/2015 Last Assessment & Plan: Chantix too pricey. Prefers to try wellbutrin. Smoking 10 cig/day currently. Attempt at quitting on own was unsuccessful. documented as of this encounter (statuses as of 11/26/2021) [facility] History of Past illness Narrative* Problem Noted Date Resolved Date Smoker 12/16/2011 10/02/2015 Last Assessment & Plan: Chantix too pricey. Prefers to try wellbutrin. Smoking 10 cig/day currently. Attempt at quitting on own was unsuccessful. documented as of this encounter (statuses as of 12/02/2021) [facility] History of Past illness Narrative* Problem Noted Date Resolved Date Smoker 12/16/2011 10/02/2015 Last Assessment & Plan: Chantix too pricey. Prefers to try wellbutrin. Smoking 10 cig/day currently. Attempt at quitting on own was unsuccessful. documented as of this encounter (statuses as of 01/18/2022) [facility] History of Past illness Narrative* Problem Noted Date Resolved Date Smoker 12/16/2011 10/02/2015 Last Assessment & Plan: Chantix too pricey. Prefers to try wellbutrin. Smoking 10 cig/day currently. Attempt at quitting on own was unsuccessful. documented as of this encounter (statuses as of 02/12/2022) [facility] History of Past illness Narrative* Problem Noted Date Resolved Date Smoker 12/16/2011 10/02/2015 Last Assessment & Plan: Chantix too pricey. Prefers to try wellbutrin. Smoking 10 cig/day currently. Attempt at quitting on own was unsuccessful. documented as of this encounter (statuses as of 02/13/2022) [facility] History of Past illness Narrative* Problem Noted Date Resolved Date Smoker 12/16/2011 10/02/2015 Last Assessment & Plan: Chantix too pricey. Prefers to try wellbutrin. Smoking 10 cig/day currently. Attempt at quitting on own was unsuccessful. documented as of this encounter (statuses as of 02/13/2022) [facility] History of Past illness Narrative* Problem Noted Date Resolved Date Smoker 12/16/2011 10/02/2015 Last Assessment & Plan: Chantix too pricey. Prefers to try wellbutrin. Smoking 10 cig/day currently. Attempt at quitting on own was unsuccessful. documented as of this encounter (statuses as of 02/14/2022) [facility] History of Past illness Narrative* Problem Noted Date Resolved Date Smoker 12/16/2011 10/02/2015 Last Assessment & Plan: Chantix too pricey. Prefers to try wellbutrin. Smoking 10 cig/day currently. Attempt at quitting on own was unsuccessful. documented as of this encounter (statuses as of 03/19/2022) [facility] History of Past illness Narrative* Problem Noted Date Resolved Date Smoker 12/16/2011 10/02/2015 Last Assessment & Plan: Chantix too pricey. Prefers to try wellbutrin. Smoking 10 cig/day currently. Attempt at quitting on own was unsuccessful. documented as of this encounter (statuses as of 03/25/2022) [facility] History of Past illness Narrative* Problem Noted Date Resolved Date Smoker 12/16/2011 10/02/2015 Last Assessment & Plan: Chantix too pricey. Prefers to try wellbutrin. Smoking 10 cig/day currently. Attempt at quitting on own was unsuccessful. documented as of this encounter (statuses as of 04/23/2022) [facility] History of Past illness Narrative* Problem Noted Date Resolved Date Smoker 12/16/2011 10/02/2015 Last Assessment & Plan: Chantix too pricey. Prefers to try wellbutrin. Smoking 10 cig/day currently. Attempt at quitting on own was unsuccessful. documented as of this encounter (statuses as of 04/24/2022) [facility] History of Past illness Narrative* Problem Noted Date Resolved Date Smoker 12/16/2011 10/02/2015 Last Assessment & Plan: Chantix too pricey. Prefers to try wellbutrin. Smoking 10 cig/day currently. Attempt at quitting on own was unsuccessful. documented as of this encounter (statuses as of 05/06/2022) [facility] History of Past illness Narrative* Problem Noted Date Resolved Date Smoker 12/16/2011 10/02/2015 Last Assessment & Plan: Chantix too pricey. Prefers to try wellbutrin. Smoking 10 cig/day currently. Attempt at quitting on own was unsuccessful. documented as of this encounter (statuses as of 05/06/2022) [facility] History of Past illness Narrative* Problem Noted Date Resolved Date Smoker 12/16/2011 10/02/2015 Last Assessment & Plan: Chantix too pricey. Prefers to try wellbutrin. Smoking 10 cig/day currently. Attempt at quitting on own was unsuccessful. documented as of this encounter (statuses as of 05/09/2022) [facility] History of Past illness Narrative* Problem Noted Date Resolved Date Smoker 12/16/2011 10/02/2015 Last Assessment & Plan: Chantix too pricey. Prefers to try wellbutrin. Smoking 10 cig/day currently. Attempt at quitting on own was unsuccessful. documented as of this encounter (statuses as of 05/13/2022) [facility] History of Past illness Narrative* Problem Noted Date Resolved Date Smoker 12/16/2011 10/02/2015 Last Assessment & Plan: Chantix too pricey. Prefers to try wellbutrin. Smoking 10 cig/day currently. Attempt at quitting on own was unsuccessful. documented as of this encounter (statuses as of 05/14/2022) [facility] History of Past illness Narrative* Problem Noted Date Resolved Date Smoker 12/16/2011 10/02/2015 Last Assessment & Plan: Chantix too pricey. Prefers to try wellbutrin. Smoking 10 cig/day currently. Attempt at quitting on own was unsuccessful. documented as of this encounter (statuses as of 06/02/2022) [facility] History of Past illness Narrative* Problem Noted Date Resolved Date Smoker 12/16/2011 10/02/2015 Last Assessment & Plan: Chantix too pricey. Prefers to try wellbutrin. Smoking 10 cig/day currently. Attempt at quitting on own was unsuccessful. documented as of this encounter (statuses as of 06/05/2022) [facility] History of Past illness Narrative* Problem Noted Date Resolved Date Smoker 12/16/2011 10/02/2015 Last Assessment & Plan: Chantix too pricey. Prefers to try wellbutrin. Smoking 10 cig/day currently. Attempt at quitting on own was unsuccessful. documented as of this encounter (statuses as of 06/09/2022) [facility] History of Past illness Narrative* Problem Noted Date Resolved Date Smoker 12/16/2011 10/02/2015 Last Assessment & Plan: Chantix too pricey. Prefers to try wellbutrin. Smoking 10 cig/day currently. Attempt at quitting on own was unsuccessful. documented as of this encounter (statuses as of 06/20/2022) [facility] History of Past illness Narrative* Problem Noted Date Resolved Date Smoker 12/16/2011 10/02/2015 Last Assessment & Plan: Chantix too pricey. Prefers to try wellbutrin. Smoking 10 cig/day currently. Attempt at quitting on own was unsuccessful. documented as of this encounter (statuses as of 06/23/2022) [facility] History of Past illness Narrative* Problem Noted Date Resolved Date Smoker 12/16/2011 10/02/2015 Last Assessment & Plan: Chantix too pricey. Prefers to try wellbutrin. Smoking 10 cig/day currently. Attempt at quitting on own was unsuccessful. documented as of this encounter (statuses as of 07/01/2022) [facility] History of Past illness Narrative* Problem Noted Date Resolved Date Smoker 12/16/2011 10/02/2015 Last Assessment & Plan: Chantix too pricey. Prefers to try wellbutrin. Smoking 10 cig/day currently. Attempt at quitting on own was unsuccessful. documented as of this encounter (statuses as of 07/01/2022) [facility] History of Past illness Narrative* Problem Noted Date Resolved Date Smoker 12/16/2011 10/02/2015 Last Assessment & Plan: Chantix too pricey. Prefers to try wellbutrin. Smoking 10 cig/day currently. Attempt at quitting on own was unsuccessful. documented as of this encounter (statuses as of 07/12/2022) [place] [address]-09-2012 History of Past illness Narrative* Problem Noted Date Resolved Date Smoker 12/16/2011 10/02/2015 Last Assessment & Plan: Chantix too pricey. Prefers to try wellbutrin. Smoking 10 cig/day currently. Attempt at quitting on own was unsuccessful. documented as of this encounter (statuses as of 08/15/2022) [facility] History of Past illness Narrative* Problem Noted Date Resolved Date Smoker 12/16/2011 10/02/2015 Last Assessment & Plan: Chantix too pricey. Prefers to try wellbutrin. Smoking 10 cig/day currently. Attempt at quitting on own was unsuccessful. documented as of this encounter (statuses as of 08/06/2022) [facility] History of Past illness Narrative* Problem Noted Date Resolved Date Smoker 12/16/2011 10/02/2015 Last Assessment & Plan: Chantix too pricey. Prefers to try wellbutrin. Smoking 10 cig/day currently. Attempt at quitting on own was unsuccessful. documented as of this encounter (statuses as of 08/06/2022) [facility] History of Past illness Narrative* Problem Noted Date Resolved Date Smoker 12/16/2011 10/02/2015 Last Assessment & Plan: Chantix too pricey. Prefers to try wellbutrin. Smoking 10 cig/day currently. Attempt at quitting on own was unsuccessful. documented as of this encounter (statuses as of 08/07/2022) [facility] History of Past illness Narrative* Problem Noted Date Resolved Date Smoker 12/16/2011 10/02/2015 Last Assessment & Plan: Chantix too pricey. Prefers to try wellbutrin. Smoking 10 cig/day currently. Attempt at quitting on own was unsuccessful. documented as of this encounter (statuses as of 08/22/2022) [facility] History of Past illness Narrative* Problem Noted Date Resolved Date Smoker 12/16/2011 10/02/2015 Last Assessment & Plan: Chantix too pricey. Prefers to try wellbutrin. Smoking 10 cig/day currently. Attempt at quitting on own was unsuccessful. documented as of this encounter (statuses as of 08/26/2022) [facility] History of Past illness Narrative* Problem Noted Date Resolved Date Smoker 12/16/2011 10/02/2015 Last Assessment & Plan: Chantix too pricey. Prefers to try wellbutrin. Smoking 10 cig/day currently. Attempt at quitting on own was unsuccessful. documented as of this encounter (statuses as of 09/02/2022) [facility] History of Past illness Narrative* Problem Noted Date Resolved Date Smoker 12/16/2011 10/02/2015 Last Assessment & Plan: Chantix too pricey. Prefers to try wellbutrin. Smoking 10 cig/day currently. Attempt at quitting on own was unsuccessful. documented as of this encounter (statuses as of 09/05/2022) [facility] History of Past illness Narrative* Problem Noted Date Resolved Date Smoker 12/16/2011 10/02/2015 Last Assessment & Plan: Chantix too pricey. Prefers to try wellbutrin. Smoking 10 cig/day currently. Attempt at quitting on own was unsuccessful. documented as of this encounter (statuses as of 09/05/2022) [facility] History of Past illness Narrative* Problem Noted Date Resolved Date Smoker 12/16/2011 10/02/2015 Last Assessment & Plan: Chantix too pricey. Prefers to try wellbutrin. Smoking 10 cig/day currently. Attempt at quitting on own was unsuccessful. documented as of this encounter (statuses as of 09/10/2022) [facility] History of Past illness Narrative* Problem Noted Date Diagnosed Date Resolved Date Smoker 12/16/2011 10/02/2015 Last Assessment & Plan: Chantix too pricey. Prefers to try wellbutrin. Smoking 10 cig/day currently. Attempt at quitting on own was unsuccessful. documented as of this encounter (statuses as of 10/01/2022) [facility] History of Past illness Narrative* Problem Noted Date Diagnosed Date Resolved Date Smoker 12/16/2011 10/02/2015 Last Assessment & Plan: Chantix too pricey. Prefers to try wellbutrin. Smoking 10 cig/day currently. Attempt at quitting on own was unsuccessful. documented as of this encounter (statuses as of 11/07/2022) [facility] History of Past illness Narrative* Problem Noted Date Diagnosed Date Resolved Date Smoker 12/16/2011 10/02/2015 Last Assessment & Plan: Chantix too pricey. Prefers to try wellbutrin. Smoking 10 cig/day currently. Attempt at quitting on own was unsuccessful. documented as of this encounter (statuses as of 11/18/2022) [facility] History of Past illness Narrative* Problem Noted Date Diagnosed Date Resolved Date Smoker 12/16/2011 10/02/2015 Last Assessment & Plan: Chantix too pricey. Prefers to try wellbutrin. Smoking 10 cig/day currently. Attempt at quitting on own was unsuccessful. documented as of this encounter (statuses as of 11/22/2022) [facility] History of Past illness Narrative* Problem Noted Date Diagnosed Date Resolved Date Smoker 12/16/2011 10/02/2015 Last Assessment & Plan: Chantix too pricey. Prefers to try wellbutrin. Smoking 10 cig/day currently. Attempt at quitting on own was unsuccessful. documented as of this encounter (statuses as of 11/24/2022) [facility]10-09-2012 History of Past illness Narrative* Problem Noted Date Diagnosed Date Resolved Date Smoker 12/16/2011 10/02/2015 Last Assessment & Plan: Chantix too pricey. Prefers to try wellbutrin. Smoking 10 cig/day currently. Attempt at quitting on own was unsuccessful. documented as of this encounter (statuses as of 11/25/2022) [facility]10-09-2012 History of Past illness Narrative* Problem Noted Date Diagnosed Date Resolved Date Smoker 12/16/2011 10/02/2015 Last Assessment & Plan: Chantix too pricey. Prefers to try wellbutrin. Smoking 10 cig/day currently. Attempt at quitting on own was unsuccessful. documented as of this encounter (statuses as of 12/16/2022) [facility]10-[facility]-2012 History of Past illness Narrative* Problem Noted Date Diagnosed Date Resolved Date Smoker 12/16/2011 10/02/2015 Last Assessment & Plan: Chantix too pricey. Prefers to try wellbutrin. Smoking 10 cig/day currently. Attempt at quitting on own was unsuccessful. documented as of this encounter (statuses as of 01/12/2023) [facility] History of Past illness Narrative* Problem Noted Date Diagnosed Date Resolved Date Smoker 12/16/2011 10/02/2015 Last Assessment & Plan: Chantix too pricey. Prefers to try wellbutrin. Smoking 10 cig/day currently. Attempt at quitting on own was unsuccessful. documented as of this encounter (statuses as of 01/12/2023) [facility]10[facility]2012 History of Past illness Narrative* Problem Noted Date Diagnosed Date Resolved Date Smoker 12/16/2011 10/02/2015 Last Assessment & Plan: Chantix too pricey. Prefers to try wellbutrin. Smoking 10 cig/day currently. Attempt at quitting on own was unsuccessful. documented as of this encounter (statuses as of 01/13/2023) [facility]10[facility] History of Past illness Narrative* Problem Noted Date Diagnosed Date Resolved Date Smoker 12/16/2011 10/02/2015 Last Assessment & Plan: Chantix too pricey. Prefers to try wellbutrin. Smoking 10 cig/day currently. Attempt at quitting on own was unsuccessful. documented as of this encounter (statuses as of 01/15/2023) [facility] History of Past illness Narrative* Problem Noted Date Diagnosed Date Resolved Date Smoker 12/16/2011 10/02/2015 Last Assessment & Plan: Chantix too pricey. Prefers to try wellbutrin. Smoking 10 cig/day currently. Attempt at quitting on own was unsuccessful. documented as of this encounter (statuses as of 01/29/2023) [facility] History of Past illness Narrative* Problem Noted Date Diagnosed Date Resolved Date Smoker 12/16/2011 10/02/2015 Last Assessment & Plan: Chantix too pricey. Prefers to try wellbutrin. Smoking 10 cig/day currently. Attempt at quitting on own was unsuccessful. documented as of this encounter (statuses as of 02/01/2023) [facility]10[facility] History of Past illness Narrative* Problem Noted Date Diagnosed Date Resolved Date Smoker 12/16/2011 10/02/2015 Last Assessment & Plan: Chantix too pricey. Prefers to try wellbutrin. Smoking 10 cig/day currently. Attempt at quitting on own was unsuccessful. documented as of this encounter (statuses as of 02/13/2023) [facility] History of Past illness Narrative* Problem Noted Date Diagnosed Date Resolved Date Smoker 12/16/2011 10/02/2015 Last Assessment & Plan: Chantix too pricey. Prefers to try wellbutrin. Smoking 10 cig/day currently. Attempt at quitting on own was unsuccessful. documented as of this encounter (statuses as of 04/24/2023) [facility] History of Past illness Narrative* Problem Noted Date Diagnosed Date Resolved Date Smoker 12/16/2011 10/02/2015 Last Assessment & Plan: Chantix too pricey. Prefers to try wellbutrin. Smoking 10 cig/day currently. Attempt at quitting on own was unsuccessful. documented as of this encounter (statuses as of 04/25/2023) [facility] History of Past illness Narrative* Problem Noted Date Diagnosed Date Resolved Date Smoker 12/16/2011 10/02/2015 Last Assessment & Plan: Chantix too pricey. Prefers to try wellbutrin. Smoking 10 cig/day currently. Attempt at quitting on own was unsuccessful. documented as of this encounter (statuses as of 05/14/2023) [facility]10[facility] History of Past illness Narrative* Problem Noted Date Diagnosed Date Resolved Date Smoker 12/16/2011 10/02/2015 Last Assessment & Plan: Chantix too pricey. Prefers to try wellbutrin. Smoking 10 cig/day currently. Attempt at quitting on own was unsuccessful. documented as of this encounter (statuses as of 05/22/2023) [facility] History of Past illness Narrative* Problem Noted Date Diagnosed Date Resolved Date Smoker 12/16/2011 10/02/2015 Last Assessment & Plan: Chantix too pricey. Prefers to try wellbutrin. Smoking 10 cig/day currently. Attempt at quitting on own was unsuccessful. documented as of this encounter (statuses as of 05/26/2023) [facility] History of Past illness Narrative* Problem Noted Date Diagnosed Date Resolved Date Smoker 12/16/2011 10/02/2015 Last Assessment & Plan: Chantix too pricey. Prefers to try wellbutrin. Smoking 10 cig/day currently. Attempt at quitting on own was unsuccessful. documented as of this encounter (statuses as of 05/26/2023) [facility] History of Past illness Narrative* Problem Noted Date Diagnosed Date Resolved Date Smoker 12/16/2011 10/02/2015 Last Assessment & Plan: Chantix too pricey. Prefers to try wellbutrin. Smoking 10 cig/day currently. Attempt at quitting on own was unsuccessful. documented as of this encounter (statuses as of 05/27/2023) [facility] History of Past illness Narrative* Problem Noted Date Diagnosed Date Resolved Date Smoker 12/16/2011 10/02/2015 Last Assessment & Plan: Chantix too pricey. Prefers to try wellbutrin. Smoking 10 cig/day currently. Attempt at quitting on own was unsuccessful. documented as of this encounter (statuses as of 06/01/2023) [facility] History of Past illness Narrative* Problem Noted Date Diagnosed Date Resolved Date Smoker 12/16/2011 10/02/2015 Last Assessment & Plan: Chantix too pricey. Prefers to try wellbutrin. Smoking 10 cig/day currently. Attempt at quitting on own was unsuccessful. documented as of this encounter (statuses as of 06/02/2023) [facility] History of Past illness Narrative* Problem Noted Date Diagnosed Date Resolved Date Smoker 12/16/2011 10/02/2015 Last Assessment & Plan: Chantix too pricey. Prefers to try wellbutrin. Smoking 10 cig/day currently. Attempt at quitting on own was unsuccessful. documented as of this encounter (statuses as of 06/03/2023) [facility] History of Past illness Narrative* Problem Noted Date Diagnosed Date Resolved Date Smoker 12/16/2011 10/02/2015 Last Assessment & Plan: Chantix too pricey. Prefers to try wellbutrin. Smoking 10 cig/day currently. Attempt at quitting on own was unsuccessful. documented as of this encounter (statuses as of 06/10/2023) [facility] History of Past illness Narrative* Problem Noted Date Diagnosed Date Resolved Date Smoker 12/16/2011 10/02/2015 Last Assessment & Plan: Chantix too pricey. Prefers to try wellbutrin. Smoking 10 cig/day currently. Attempt at quitting on own was unsuccessful. documented as of this encounter (statuses as of 06/16/2023) [facility] History of Past illness Narrative* Problem Noted Date Diagnosed Date Resolved Date Smoker 12/16/2011 10/02/2015 Last Assessment & Plan: Chantix too pricey. Prefers to try wellbutrin. Smoking 10 cig/day currently. Attempt at quitting on own was unsuccessful. documented as of this encounter (statuses as of 06/26/2023) [facility] Perimenopausal symptoms Symptomatic menopausal or female climacteric states [facility]* Diagnosis Dysthymia- Primary Dysthymic disorder [...] of hands, bilateral [facility]* Diagnosis Cellulitis of chest wall Cellulitis and abscess of trunk [facility]* Diagnosis Cellulitis of female breast- Primary Inflammatory disease of breast [facility]* Diagnosis Encounter for gynecological examination (general) (routine) without abnormal findings Encounter for screening mammogram for breast cancer [facility]* Diagnosis Abnormal mammogram Abnormal mammogram, unspecified [facility]* Diagnosis Abnormal mammogram- Primary Abnormal mammogram, unspecified [facility]* Diagnosis Back pain with radiation Backache, unspecified Pelvic pain in female Unspecified symptom associated with female genital organs [facility]* Diagnosis Abnormal mammogram- Primary Abnormal mammogram, unspecified [facility]* Diagnosis Malignant neoplasm of upper-outer quadrant of right breast in female, estrogen receptor positive (HCC)- Primary [facility]* Diagnosis 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, estrogen receptor positive (HCC)- Primary Invasive ductal carcinoma of breast, 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, estrogen receptor positive (HCC) [facility] Diagnosis Invasive ductal carcinoma of breast, right (HCC)- Primary Malignant neoplasm of 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, 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, 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, estrogen receptor positive (HCC) [facility] Diagnosis Malignant neoplasm of 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, estrogen receptor positive (HCC)- Primary Encounter for screening for osteoporosis Special screening for osteoporosis Asymptomatic postmenopausal status Invasive ductal carcinoma of breast, 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, estrogen receptor positive (HCC) [facility] Diagnosis Screening mammogram, encounter for- Primary Malignant neoplasm of 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, estrogen receptor positive (HCC) Family history of breast cancer Family history of malignant neoplasm of breast Invasive ductal carcinoma of breast, 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, estrogen receptor positive (HCC) [facility] Diagnosis Malignant neoplasm of 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, estrogen receptor positive (HCC)- Primary Invasive ductal carcinoma of breast, 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, estrogen receptor positive (HCC) [facility] Diagnosis Preoperative examination- Primary Preoperative examination, [...] receptor positive (HCC) [facility]* Diagnosis Invasive ductal carcinoma of breast, 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, estrogen receptor positive (HCC) Obesity, Class I, BMI 30-34.9 Obesity, unspecified [facility]* Diagnosis Malignant neoplasm of 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, estrogen receptor positive (HCC)- Primary [facility] Diagnosis Malignant neoplasm of 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, estrogen receptor positive (HCC)- Primary [facility] Diagnosis 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, estrogen receptor positive (HCC)- [facility] Diagnosis Malignant neoplasm of 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, estrogen receptor positive (HCC)- Primary [facility] Diagnosis Encounter for screening for osteoporosis Special screening for osteoporosis Asymptomatic postmenopausal status [facility] Diagnosis Family history of cancer- Primary Family history of unspecified malignant neoplasm Screening mammogram, encounter for Family history of breast cancer Family history of malignant neoplasm of breast Malignant neoplasm of 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, estrogen receptor positive (HCC) Family history of colon cancer Family history of malignant neoplasm of gastrointestinal tract [facility] Diagnosis Malignant neoplasm of 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, estrogen receptor positive (HCC) Other chest pain [facility] Diagnosis Encounter for long-term current use of medication Chronic pain of both knees Arthralgia of hands, bilateral [facility] Diagnosis Routine medical exam- Primary Routine general medical examination at a health care facility Back pain with radiation Backache, unspecified Pelvic pain in female Unspecified symptom associated with female genital organs [facility] Diagnosis Malignant neoplasm of 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, estrogen receptor positive (HCC)- Primary Examination of participant in clinical trial Vitamin D deficiency Unspecified vitamin D deficiency [facility] Diagnosis Examination of participant in clinical trial- Primary [facility] Diagnosis Malignant neoplasm of 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, estrogen receptor positive (HCC)- Primary Vitamin D deficiency Unspecified vitamin D deficiency [facility]* Diagnosis Abnormal mammogram- Primary Abnormal mammogram, unspecified Personal history of breast cancer Personal history of malignant neoplasm of breast [facility]* Diagnosis Abnormal mammogram- Primary Abnormal mammogram, unspecified Invasive ductal carcinoma of breast, right (HCC) [facility] Diagnosis Invasive ductal carcinoma of breast, right (HCC)- Primary [facility] noteNo assessment information availableWCenterville Work Phone: Evaluation note* Diagnosis Examination of participant in clinical trial- Primary [facility] Diagnosis Invasive ductal carcinoma of breast, right (HCC)- Primary Examination of participant in clinical trial Rash Rash and other nonspecific skin eruption Persistent depressive disorder [facility]* Diagnosis Malignant neoplasm of 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, estrogen receptor positive (HCC) [facility]* Diagnosis Encounter for long-term current use of medication Chronic pain of both knees Arthralgia of hands, bilateral [facility]* Diagnosis Gastroesophageal reflux disease, unspecified whether esophagitis present- Primary Encounter for immunization Need for other specified prophylactic vaccination against single bacterial disease Fatigue, unspecified type Thyroid nodule Nontoxic uninodular goiter Nontoxic multinodular goiter Invasive ductal carcinoma of breast, right (HCC) Mood disorder (HCC) Unspecified episodic mood disorder [facility] encounter [facility]* Diagnosis Low TSH level- Primary Nonspecific abnormal results of thyroid function study [facility] Diagnosis Encounter for gynecological examination (general) (routine) without abnormal findings- Primary Malignant neoplasm of 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, estrogen receptor positive (HCC) [facility]* Diagnosis Low TSH level- Primary Nonspecific abnormal results of thyroid function study Thyroid nodule Nontoxic uninodular goiter [facility] encounter [facility]* Diagnosis Thyroid nodule- Primary Nontoxic uninodular goiter Low TSH level Nonspecific abnormal results of thyroid function study Malignant neoplasm of 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, estrogen receptor positive (HCC) [facility]* Diagnosis Examination of participant in clinical trial- Primary [facility]* Diagnosis Low TSH level Nonspecific abnormal results of thyroid function study Thyroid nodule Nontoxic uninodular goiter [facility] Diagnosis Low TSH level- Primary Nonspecific abnormal results of thyroid function study Thyroid nodule Nontoxic uninodular goiter [facility]* Diagnosis Neoplasm of uncertain behavior of skin of cheek- Primary Neoplasm of uncertain behavior of skin Nontoxic multinodular goiter [facility] Diagnosis Cellulitis of chest wall- Primary Cellulitis and abscess of trunk [facility] Diagnosis Low TSH level- Primary Nonspecific abnormal results of thyroid function study [facility] Diagnosis Encounter for long-term current use of medication Chronic pain of both knees Arthralgia of hands, bilateral [facility]* Diagnosis Invasive ductal carcinoma of breast, right (HCC)- Primary [facility] Diagnosis Malignant neoplasm of 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, estrogen receptor positive (HCC) [facility] Diagnosis Nontoxic multinodular goiter- Primary [facility]* Diagnosis Nontoxic multinodular goiter [facility]* Diagnosis Screening mammogram, encounter for [facility] Diagnosis Nontoxic multinodular goiter [facility]* Diagnosis Tobacco abuse Tobacco use disorder [facility] encounter [facility]* Diagnosis NO SHOW- Primary [facility] Diagnosis Routine medical exam- Primary Routine general medical examination at a health care facility Constipation, unspecified constipation type [facility]* Diagnosis Nontoxic multinodular goiter- Primary [facility]* Diagnosis Malignant neoplasm of 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, estrogen receptor positive (HCC) (HCC) Encounter for screening mammogram for malignant neoplasm of breast Other screening mammogram [facility]* Diagnosis Malignant neoplasm of 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, estrogen receptor positive (HCC)- Primary Hiatal hernia with GERD Other specified intestinal obstruction, unspecified whether partial or complete (HCC) Nausea Nausea alone [facility] Examination of participant in clinical trial- Primary [facility]* Diagnosis Epigastric pain- Primary Abdominal pain, epigastric [facility]* Diagnosis Encounter for long-term current use of medication Chronic pain of both knees Arthralgia of hands, bilateral [facility] Diagnosis Ventral hernia without obstruction or gangrene- Primary Ventral hernia, unspecified, without mention of obstruction or gangrene Epigastric pain Abdominal pain, epigastric Ventral hernia without obstruction or gangrene Ventral hernia, unspecified, without mention of obstruction or gangrene [facility] Diagnosis Ventral hernia without obstruction or gangrene- Primary Ventral hernia, unspecified, without mention of obstruction or gangrene documented [facility] Diagnosis Malignant neoplasm of 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, estrogen receptor positive (HCC)- Primary Examination of participant in clinical trial documented [facility] encounter [facility] Diagnosis Thyroid nodule- Primary Nontoxic uninodular [...] receptor positive (HCC) [facility] Diagnosis Thyroid nodule- Primary Nontoxic uninodular [...] for high-risk patient documented [facility] Diagnosis Thyroid nodule- Primary Nontoxic uninodular [...] of hands, bilateral [facility] Diagnosis Thyroid nodule- Primary Nontoxic uninodular [...] positive (HCC)- Primary [facility] Diagnosis Thyroid nodule- Primary Nontoxic uninodular [...] neoplasm of breast [facility] Diagnosis Thyroid nodule- Primary Nontoxic uninodular [...] serious comorbidity present documented in this encounter [facility] note* Diagnosis Thyroid nodule- Primary Nontoxic [...] receptor positive (HCC) documented in this encounter [facility] note* Diagnosis Thyroid nodule- Primary Nontoxic [...] and behavioral disorders [facility] Diagnosis Thyroid nodule- Primary Nontoxic uninodular [...] receptor positive (HCC) [facility] Diagnosis Thyroid nodule- Primary Nontoxic uninodular [...] polyarthritis, site unspecified documented in this encounter [facility] note* Diagnosis Thyroid nodule- Primary Nontoxic [...] esophagitis Esophageal reflux [facility] Diagnosis Thyroid nodule- Primary Nontoxic uninodular [...] receptor positive (HCC) [facility] Diagnosis Thyroid nodule- Primary Nontoxic uninodular [...] in clinical trial documented in this encounter [facility] for referral (narrative)* Diagnostic Procedure Only (Routine) - Pending Review Specialty Diagnoses / Procedures Referred By Contjacqueline t Referred To Contact [facility] IMAGING Diagnoses Abnormal mammogram Procedures US BREAST LTD RT US BREAST UNI REAL TIME WITH IMAGE LIMITED Akira Pierre MD [address] [place] [address] [facility] [address] [place] [address] Referral ID Status Reason Start Date Expiration Date Visits Requested Visits Authorized [id number] Pending Review Auto-Generat ed Referral 06/07/2021 07/07/2022 1 1 * Diagnostic Procedure Only (Routine) - Pending Review Specialty Diagnoses / Procedures Referred By Contac t Referred To Contact BR IMAGING Diagnoses Abnormal mammogram Procedures HARSH DIAGNOSTIC RT DIAGNOSTIC MAMMOGRAPHY COMPUTER-AIDED DETCJ UNI Akira Pierre MD [address] [place] [id number] [facility] [address] [place] [address] Referral ID Status Reason Start Date Expiration Date Visits Requested Visits Authorized [id number] Pending Review Auto-Generat ed Referral 06/07/2021 07/07/2022 1 1 [facility] for referral (narrative)* Diagnostic Procedure Only (Routine) - Pending Review Specialty Diagnoses / Procedures Referred By Contac t Referred To Contact BR IMAGING Diagnoses Abnormal mammogram Procedures US BIOPSY BREAST RT BX BREAST W/DEVICE 1ST LESION ULTRASOUND GUID Quinton Myers MD [address] [place] [address] [facility] [address] [place] [address] Referral ID Status Reason Start Date Expiration Date Visits Requested Visits Authorized [id number] Pending Review Auto-Generat ed Referral 07/26/2021 08/25/2022 1 1 [facility] for referral (narrative)* Diagnostic Procedure Only (Routine) [...] LOC 1ST LES W/GDNCE Dana Flores PA-C [address] [place] [address] Br Imaging [address] [place] [address] Referral ID Status Reason Start Date Expiration Date Visits Requested Visits Authorized [id number] Pending Review Auto-Generat ed Referral 09/26/2021 10/26/2022 1 1 [facility] for referral (narrative)* Diagnostic Procedure Only (Routine) - Authorized Specialty Diagnoses / Procedures Referred By Peterac t Referred To Contact BR IMAGING Diagnoses Abnormal mammogram Personal history of breast cancer Procedures US BREAST LTD RT US BREAST UNI REAL TIME WITH IMAGE LIMITED Dana Flores PA-C [address] [place] [address] Br Imaging [address] [place] [address] Referral ID Status Reason Start Date Expiration Date Visits Requested Visits Authorized [id number] Authorized Auto-Generat ed Referral 04/23/2022 05/23/2023 1 1 * Diagnostic Procedure Only (Routine) - Authorized Specialty Diagnoses / Procedures Referred By Contac t Referred To Contact [facility] IMAGING Diagnoses Abnormal mammogram Personal history of breast cancer Procedures HARSH DIAGNOSTIC RT DIAGNOSTIC MAMMOGRAPHY COMPUTER-AIDED DETCJ UNI Dana Flores PA-C [address] [place] [address] Br Imaging [address] [place] [address] Referral ID Status Reason Start Date Expiration Date Visits Requested Visits Authorized [id number] Authorized Auto-Generat ed Referral 04/23/2022 05/23/2023 1 1 [facility] for referral (narrative)* Diagnostic Procedure Only (Routine) - Authorized Specialty Diagnoses / Procedures Referred By Contac t Referred To Contact US IMAGING Diagnoses Nontoxic multinodular goiter Procedures US THYROID/PARATHYROID US SOFT TISSUE HEAD & NECK REAL TIME IMGE Celeste Peterson APRN.CNS [address] [place] [address] Us Imaging Referral ID Status Reason Start Date Expiration Date Visits Requested Visits Authorized [id number] Authorized Auto-Generat ed Referral 06/20/2022 07/20/2023 1 1 T [facility] for referral (narrative)* Diagnostic Procedure Only (Routine) - Pending Review Specialty Diagnoses / Procedures [facility] Contact MOLECULAR & FUNCTIONAL IMAGING Diagnoses Low TSH level Thyroid nodule Procedures NM THY UPTAKE AND SCAN THYROID UPTAKE W/BLOOD FLOW SNGLE/MULT Patrice Emerson MD [address] [place] [address] Molecular & Functional Imaging [address] [place] [address] Referral ID Status Reason Start Date Expiration Date Visits Requested Visits Authorized [id number] Pending Review Auto-Generat ed Referral 07/11/2022 08/10/2023 1 1 [facility] for referral (narrative)* Diagnostic Procedure Only (Routine) - Closed Specialty Diagnoses / Procedures [facility] Ref[facility] To Contact MOLECULAR & FUNCTIONAL IMAGING Diagnoses Low TSH level Thyroid nodule Procedures NM THY UPTAKE AND SCAN THYROID UPTAKE W/BLOOD FLOW SNGLE/MULT LETTY Patrice Bonilla MD [address] [place] [address] Molecular & Functional Imaging [address] [place], [place] [id number] Referral ID Status Reason Start Date Expiration Date V isits Requested Visits Authorized [id number] Closed Auto-Generate d Referral 07/11/2022 08/10/2023 1 1 [facility] for referral (narrative)* Diagnostic Procedure Only (Routine) - Pending Review Specialty Diagnoses / Procedures Referred By Jen t Referred To Contact US IMAGING Diagnoses Nontoxic multinodular goiter Procedures US THYROID/PARATHYROID US SOFT TISSUE HEAD & NECK REAL TIME IMGE Patrice Roy MD [address] [place] [address] [place] [address] Referral ID Status Reason Start Date Expiration Date Visits Requested Visits Authorized [id number] Pending Review Auto-Generat ed Referral 12/15/2022 01/14/2024 1 1 [facility] for referral (narrative)* Diagnostic Procedure Only (Routine) - Closed Specialty Diagnoses / Procedures Referred By Jen t Referred To Contact US IMAGING Diagnoses Nontoxic multinodular goiter Procedures US THYROID/PARATHYROID US SOFT TISSUE HEAD & NECK REAL TIME IMGE Celeste Peterson APRN.CNS [address] [place] [address] [place] [address] Referral ID Status Reason Start Date Expiration Date V isits Requested Visits Authorized [id number] Closed Auto-Generate d Referral 06/20/2022 07/20/2023 1 1 [facility] for referral (narrative)* Diagnostic Procedure Only (Routine) - Closed Specialty Diagnoses / Procedures Referred By Jen t Referred To Contact BR IMAGING Diagnoses Screening mammogram, encounter for Procedures HARSH SCREENING W YANE SCREENING DIGITAL BREAST TOMOSYNTHESIS BI SCREENING MAMMOGRAPHY BI 2-[place] [address] [place] [address] Br Imaging [address] [place] [address] Referral ID Status Reason Start Date Expiration Date V isits Requested Visits Authorized [id number] Closed Auto-Generate d Referral 09/26/2021 10/26/2022 1 1 [facility] for referral (narrative)* Diagnostic Procedure Only (Routine) - Closed Specialty Diagnoses / Procedures Referred By Peterac t Referred To Contact US IMAGING Diagnoses Nontoxic multinodular goiter Procedures US THYROID/PARATHYROID US SOFT TISSUE HEAD & NECK REAL TIME IMGE Patrice Roy MD [address] [place] [address] [place] [address] Referral ID Status Reason Start Date Expiration Date V isits Requested Visits Authorized [id number] Closed Auto-Generate d Referral 12/15/2022 01/14/2024 1 1 [facility] for referral (narrative)* Diagnostic Procedure Only (Routine) [...] CAD Nahun Zavaleta DO [address] [place] [address] Br Imaging [address] [place] [address] Referral ID Status Reason Start Date Expiration Date V isits Requested Visits Authorized [id number] Closed Auto-Generate d Referral 11/21/2022 12/21/2023 1 1 [facility] for referral (narrative)* Diagnostic Procedure Only (Routine) [...] BI 2-VIEW BREAST INC CAD Stephanie Crawford, INFORMATICS NURSE.RESIDENTIAL SALES REPRESENTATIVE [address] [place] [address] Br Imaging [address] [place] [address] Referral ID Status Reason Start Date Expiration Date Visits Requested Visits Authorized [id number] Authorized Auto-Generat ed Referral 11/24/2023 12/23/2024 1 1 [facility] for referral (narrative)* Diagnostic Procedure Only (Routine) - Closed Specialty Diagnoses / Procedures Referred By Contac t Referred To Contact BR IMAGING Diagnoses Abnormal mammogram Personal history of breast cancer Procedures US BREAST LTD RT US BREAST UNI REAL TIME WITH IMAGE LIMITED Dana Flores PA-C [address] [place] [address] Br Imaging [address] [place] [address] Referral ID Status Reason Start Date Expiration Date V isits Requested Visits Authorized [id number] Closed Auto-Generate d Referral 04/23/2022 05/23/2023 1 1 [facility] for referral (narrative)No reason for referral [facility] Work Phone: Reason for visit Narrative* Diagnostic Procedure Only (Routine) - Closed Specialty Diagnoses / Procedures Referred By Contjacqueline t Referred To Contact BR IMAGING Diagnoses Abnormal mammogram Procedures US BREAST LTD RT US BREAST UNI REAL TIME WITH IMAGE LIMITED Akira Pierre MD [address] [place] [address] Br Imaging [address] [place] [address] Referral ID Status Reason Start Date Expiration Date V isits Requested Visits Authorized [id number] Closed Auto-Generate d Referral 06/07/2021 07/07/2022 1 1 [facility] for visit Narrative* Auth/Cert Specialty Diagnoses / Procedures Referred By Contjacqueline t Referred To Contact [facility] Diagnoses Invasive ductal carcinoma of breast, [...] NODE SENTINEL AXILLARY LYMPHADENECTOMY AXILLARY COMPLETE [facility] [address] [place] [address] Referral ID Status Reason Start Date Expiration Date Visits Re quested Visits Authorized [id number] 1 1 [facility] for visit Narrative* Diagnostic Procedure Only (Routine) - Closed Specialty Diagnoses / Procedures Referred By Jen holder Referred To Contact MOLECULAR & FUNCTIONAL IMAGING Diagnoses Low TSH level Thyroid nodule Procedures NM THY UPTAKE AND SCAN THYROID UPTAKE W/BLOOD FLOW SNGLE/MULT LETTY FAWAD Patrice Palencia MD [address] [place] [address] Molecular & Functional Imaging [address] [place] [address] Referral ID Status Reason Start Date Expiration Date V isits Requested Visits Authorized [id number] Closed Auto-Generate d Referral 07/11/2022 08/10/2023 1 1 [facility] for visit Narrative* Diagnostic Procedure Only (Routine) - Closed Specialty Diagnoses / Procedures Referred By Jen holder Referred To Contact BR IMAGING Diagnoses Screening mammogram, encounter for Procedures HARSH SCREENING W YANE SCREENING DIGITAL BREAST TOMOSYNTHESIS BI SCREENING MAMMOGRAPHY BI 2-[place] [address] [place] [address] Br Imaging [address] [place] [address] Referral ID Status Reason Start Date Expiration Date V isits Requested Visits Authorized [id number] Closed Auto-Generate d Referral 09/26/2021 10/26/2022 1 1 [facility] for visit Narrative* Diagnostic Procedure Only (Routine) [...] Nahun Zavaleta, DO [address] [place] [address] Br Imaging [address] [place] [address] Referral ID Status Reason Start Date Expiration Date V isits Requested Visits Authorized [id number] Closed Auto-Generate d Referral 11/21/2022 12/21/2023 1 1 [facility] for visit Narrative* Diagnostic Procedure Only (Routine) - Closed Specialty Diagnoses / Procedures Referred By Jen holder Referred To Contact BR IMAGING Diagnoses Invasive ductal carcinoma of breast, 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, estrogen receptor positive (HCC) Procedures HARSH NDL LOC W HARSH GD RT PERQ DEVICE PLACEMENT BREAST LOC 1ST LES W/GDNCE Dana Flores, PAJoanna [address] [place] [address] Br Imaging [address] [place] [address] Referral ID Status Reason Start Date Expiration Date V isits Requested Visits Authorized [id number] Closed Auto-Generate d Referral 09/26/2021 10/26/2022 1 1 [facility] for visit Narrative* Diagnostic Procedure Only (Routine) [...] BI 2-VIEW BREAST INC CAD Stephanie Crawford, RAMAKRISHNA.RESIDENTIAL SALES REPRESENTATIVE [address] [place] [address] Phone: tel: fax: BR IMAGING [address] [place] [address] Referral ID Status Reason Start Date Expiration Date V isits Requested Visits Authorized [id number] Closed Auto-Generate d Referral 11/24/2023 12/23/2024 1 1 [facility] Summary Purpose Family History No Family History Records Found Relationship Condition Age at Onset Recorded Date/T edilia mother Asthma Unknown Arthritis Unknown father Malignant neoplasm Unknown grandmother Arthritis Unknown Malignant neoplasm Unknown Malignant neoplasm of breast Unknown grandfather Cardiac disease Unknown Advance Directives No Advanced Directives Records FoundDocuments on File Type Date Recorded Patient Breakfast Manager Expl anation Advance Directive(s) 01/31/2020 6:19 AM Advance Directive(s) 01/19/2020 2:36 PM Advance Directive(s) 11/28/2016 10:17 AM Documents on File Type Date Recorded Patient Breakfast Manager Expl anation Advance Directive(s) 01/31/2020 6:19 AM Advance Directive(s) 01/19/2020 2:36 PM Advance Directive(s) 11/28/2016 10:17 AM Documents on File Type Date Recorded Patient Breakfast Manager Expl anation Advance Directive(s) 09/30/2021 8:04 AM Advance Directive(s) 01/31/2020 6:19 AM Advance Directive(s) 01/19/2020 2:36 PM Advance Directive(s) 11/28/2016 10:17 AM Documents on File Type Date Recorded Patient Breakfast Manager Expl anation Advance Directive(s) 10/07/2021 6:44 AM Advance Directive(s) 10/07/2021 6:49 AM Advance Directive(s) 10/07/2021 6:47 AM Advance Directive(s) 09/30/2021 8:04 AM Advance Directive(s) 01/31/2020 6:19 AM Advance Directive(s) 01/19/2020 2:36 PM Advance Directive(s) 11/28/2016 10:17 AM Documents on File Type Date Recorded Patient Breakfast Manager Expl anation Advance Directive(s) 10/07/2021 6:47 AM Documents on File Type Date Recorded Patient Breakfast Manager Expl anation Advance Directive(s) 10/07/2021 6:47 AM Advance Directive Response Recorded Date/ Time Living Will No May 06, 2 023 12:17pm Power of Muck Hauler No May 06, 2022 12:17pm Advance Directive Response Recorded Date/ Time Living Will No May 06, 2 023 1:17pm Power of Muck Hauler No May 06, 2022 1:17pm Reason for Referral Specialty Diagnoses / Procedures Referred By Peterac t Referred To Contact General Surgery Diagnoses Cellulitis of female breast Procedures CONSULT TO GENERAL SURGERY OFFICE/OUTPATIENT [facility] 60-74 MINUTES Celeste Salcedo APRN.ACTUARIAL ASSOCIATE [address] [place] [address] Referral ID Status Reason Start Date Expiration Date Visits Requested Visits Authorized [id number] Pending Review PCP Requested Referral 06/24/2021 06/24/2022 1 1 Specialty Diagnoses / Procedures Referred By Jen t Referred To Contact General Surgery Diagnoses Malignant neoplasm of upper-outer quadrant of right breast in female, estrogen receptor positive (HCC) Procedures CONSULT TO GENERAL SURGERY Quinton Myers MD [address] [place] [address] Roman/Wei Bravo [address] [place] [id number] Referral ID Status Reason Start Date Expiration Date Visits Requested Visits Authorized [id number] Ref Not Required PCP Requested Referral 08/27/2021 08/27/2022 1 1 Specialty Diagnoses / Procedures Referred By Jen holder Referred To Contact Diagnoses Screening mammogram, encounter for Family history of breast cancer Malignant neoplasm of 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, estrogen receptor positive (HCC) Procedures CONSULT TO MEDICAL GENETICS - CANCER MEDICAL GENETICS COUNSELING EACH 30 [place] [address] [place] [address] [facility] [place] [address] [place] [address] Referral ID Status Reason Start Date Expiration Date Visits Requested Visits Authorized [id number] Authorized PCP Requested Referral Auto-Generate d Referral 09/26/2021 12/25/2021 1 1 Specialty Diagnoses / Procedures Referred By Jen holder Referred To Contact BR IMAGING Diagnoses Screening mammogram, encounter for Procedures HARSH SCREENING W YANE SCREENING DIGITAL BREAST TOMOSYNTHESIS BI SCREENING MAMMOGRAPHY BI 2-[place] [address] [place] [address] Br Imaging [address] [place] [address] Referral ID Status Reason Start Date Expiration Date Visits Requested Visits Authorized [id number] Authorized Auto-Generat ed Referral 09/26/2021 10/26/2022 1 1 Specialty Diagnoses / Procedures Referred By Contac t Referred To Contact [facility] Diagnoses Malignant neoplasm of 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, estrogen receptor positive (HCC) Procedures CONSULT TO BREAST REHAB PROGRAM THERAPEUTIC EXERCISES RE, EA 15 MIN. THERAPEUT ACTVITY DIRECT PT CONTACT EACH 15 MIN Dana Flores PA-C [address] [place] [address] [facility] [place] [address] [place] [address] Referral ID Status Reason Start Date Expiration Date Visits Requested Visits Authorized [id number] Authorized PCP Requested Referral Auto-Generate d Referral 03/09/2021 03/08/2022 20 20 Specialty Diagnoses / Procedures Referred By Contac t Referred To Contact Endocrinology Diagnoses Low TSH level Procedures CONSULT TO ENDOCRINOLOGY OFFICE/OUTPATIENT [facility] 60-74 MINUTES Celeste Salcedo, INFORMATICS NURSE.[address] [address] Referral ID Status Reason Start Date Expiration Date Visits Requested Visits Authorized [id number] Pending Review PCP Requested Referral 06/23/2022 06/23/2023 1 1 Specialty Diagnoses / Procedures Referred By Contac t Referred To Contact Diagnoses Low TSH level Thyroid nodule Procedures CONSULT TO ENDOCRINE SURGERY OFFICE/OUTPATIENT [facility] 60-74 MINUTES Celeste Salcedo, INFORMATICS NURSE.[address] [address] Referral ID Status Reason Start Date Expiration Date Visits Requested Visits Authorized [id number] Pending Review PCP Requested Referral 07/01/2022 07/01/2023 [...] CT ABD & PELVIS W/CONTRAST Aleida Rodriguez [place] [address] [place] [address] Referral ID Status Reason Start Date Expiration Date Visits Requested Visits Authorized [id number] Pending Review Auto-Generat ed Referral 05/22/2023 06/20/2024 1 1 Specialty Diagnoses / Procedures Referred By Contac t Referred To Contact Gastroenterology Diagnoses Hiatal hernia with GERD Nausea Malignant neoplasm of 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, estrogen receptor positive (HCC) Procedures CONSULT TO GASTROENTEROLOGY OFFICE/OUTPATIENT [facility] 60 MINUTES Aleida Rodriguez [address] [place] [address] Referral ID Status Reason Start Date Expiration Date Visits Requested Visits Authorized [id number] Authorized PCP Requested Referral 05/22/2023 05/21/2024 1 1 Specialty Diagnoses / Procedures Referred By Contac t Referred To Contact General Surgery Diagnoses Epigastric pain Procedures CONSULT TO GENERAL SURGERY OFFICE/OUTPATIENT [facility] 60 MINUTES Nahun Zavaleta DO [address] [place] [address] Referral ID Status Reason Start Date Expiration Date Visits Requested Visits Authorized [id number] Authorized PCP Requested Referral 05/25/2023 05/24/2024 1 [...] Action Action Date Dose Rate Site zoledronic za-tmnozhds-3.9NaCl 4 mg iv piggyback 100 mL (ZOMETA) [...] section and content) DATE CREATED AUTHOR 06/05/2020 [facility] DATE CREATED AUTHOR AUTHOR'S ORGANIZ ATION 08/29/2021 [facility] DATE CREATED AUTHOR AUTHOR'S ORGANIZ ATION 09/04/2022 [facility] DATE CREATED AUTHOR AUTHOR'S ORGANIZ ATION 06/17/2023 [facility] DATE CREATED AUTHOR AUTHOR'S ORGANIZ ATION 05/24/2024 [facility] DATE CREATED AUTHOR AUTHOR'S ORGANIZ ATION 09/29/2024 [facility] Source Comments (unrecognize d section and content) In the event this informatio n is protected by the Federal Confidentiality of Alcohol and Drug Abuse Patient Records regulations: The Federal rules restrict any use of the information to criminally investigate or prosecute any alcohol or drug abuse patient.[facility] the event this information is protected by the Federal Confidentiality of Alcohol and Drug Abuse Patient Records regulations: The Federal rules restrict any use of the information to criminally investigate or prosecute any alcohol or drug abuse patient.[facility] Hospital[facility] the event this information is protected by the Federal Confidentiality of Alcohol and Drug Abuse Patient Records regulations: The Federal rules restrict any use of the information to criminally investigate or prosecute any alcohol or drug abuse patient.[facility] Hospital[facility] the event this information is protected by the Federal Confidentiality of Alcohol and Drug Abuse Patient Records regulations: The Federal rules restrict any use of the information to criminally investigate or prosecute any alcohol or drug abuse patient.[facility] HospitalIn the event this information is protected by the Federal Confidentiality of Alcohol and Drug Abuse Patient Records regulations: The Federal rules restrict any use of the information to criminally investigate or prosecute any alcohol or drug abuse patient.[facility] Hospital[facility] the event this information is protected by the Federal Confidentiality of Alcohol and Drug Abuse Patient Records regulations: The Federal rules restrict any use of the information to criminally investigate or prosecute any alcohol or drug abuse patient.[facility] HospitalIn the event this information is protected by the Federal Confidentiality of Alcohol and Drug Abuse Patient Records regulations: The Federal rules restrict any use of the information to criminally investigate or prosecute any alcohol or drug abuse patient.[facility] HospitalIn the event this information is protected by the Federal Confidentiality of Alcohol and Drug Abuse Patient Records regulations: The Federal rules restrict any use of the information to criminally investigate or prosecute any alcohol or drug abuse patient.[facility] HospitalIn the event this information is protected by the Federal Confidentiality of Alcohol and Drug Abuse Patient Records regulations: The Federal rules restrict any use of the information to criminally investigate or prosecute any alcohol or drug abuse patient.[facility] HospitalIn the event this information is protected by the Federal Confidentiality of Alcohol and Drug Abuse Patient Records regulations: The Federal rules restrict any use of the information to criminally investigate or prosecute any alcohol or drug abuse patient.[facility] HospitalIn the event this information is protected by the Federal Confidentiality of Alcohol and Drug Abuse Patient Records regulations: The Federal rules restrict any use of the information to criminally investigate or prosecute any alcohol or drug abuse patient.[facility] HospitalIn the event this information is protected by the Federal Confidentiality of Alcohol and Drug Abuse Patient Records regulations: The Federal rules restrict any use of the information to criminally investigate or prosecute any alcohol or drug abuse patient.[facility] HospitalIn the event this information is protected by the Federal Confidentiality of Alcohol and Drug Abuse Patient Records regulations: The Federal rules restrict any use of the information to criminally investigate or prosecute any alcohol or drug abuse patient.[facility] HospitalIn the event this information is protected by the Federal Confidentiality of Alcohol and Drug Abuse Patient Records regulations: The Federal rules restrict any use of the information to criminally investigate or prosecute any alcohol or drug abuse patient.[facility] HospitalIn the event this information is protected by the Federal Confidentiality of Alcohol and Drug Abuse Patient Records regulations: The Federal rules restrict any use of the information to criminally investigate or prosecute any alcohol or drug abuse patient.[facility] HospitalIn the event this information is protected by the Federal Confidentiality of Alcohol and Drug Abuse Patient Records regulations: The Federal rules restrict any use of the information to criminally investigate or prosecute any alcohol or drug abuse patient.[facility] HospitalIn the event this information is protected by the Federal Confidentiality of Alcohol and Drug Abuse Patient Records regulations: The Federal rules restrict any use of the information to criminally investigate or prosecute any alcohol or drug abuse patient.[facility] HospitalIn the event this information is protected by the Federal Confidentiality of Alcohol and Drug Abuse Patient Records regulations: The Federal rules restrict any use of the information to criminally investigate or prosecute any alcohol or drug abuse patient.[facility] HospitalIn the event this information is protected by the Federal Confidentiality of Alcohol and Drug Abuse Patient Records regulations: The Federal rules restrict any use of the information to criminally investigate or prosecute any alcohol or drug abuse patient.[facility] HospitalIn the event this information is protected by the Federal Confidentiality of Alcohol and Drug Abuse Patient Records regulations: The Federal rules restrict any use of the information to criminally investigate or prosecute any alcohol or drug abuse patient.[facility] HospitalIn the event this information is protected by the Federal Confidentiality of Alcohol and Drug Abuse Patient Records regulations: The Federal rules restrict any use of the information to criminally investigate or prosecute any alcohol or drug abuse patient.[facility] HospitalIn the event this information is protected by the Federal Confidentiality of Alcohol and Drug Abuse Patient Records regulations: The Federal rules restrict any use of the information to criminally investigate or prosecute any alcohol or drug abuse patient.[facility] HospitalIn the event this information is protected by the Federal Confidentiality of Alcohol and Drug Abuse Patient Records regulations: The Federal rules restrict any use of the information to criminally investigate or prosecute any alcohol or drug abuse patient.[facility] HospitalIn the event this information is protected by the Federal Confidentiality of Alcohol and Drug Abuse Patient Records regulations: The Federal rules restrict any use of the information to criminally investigate or prosecute any alcohol or drug abuse patient.[facility] HospitalIn the event this information is protected by the Federal Confidentiality of Alcohol and Drug Abuse Patient Records regulations: The Federal rules restrict any use of the information to criminally investigate or prosecute any alcohol or drug abuse patient.[facility] HospitalIn the event this information is protected by the Federal Confidentiality of Alcohol and Drug Abuse Patient Records regulations: The Federal rules restrict any use of the information to criminally investigate or prosecute any alcohol or drug abuse patient.[facility] HospitalIn the event this information is protected by the Federal Confidentiality of Alcohol and Drug Abuse Patient Records regulations: The Federal rules restrict any use of the information to criminally investigate or prosecute any alcohol or drug abuse patient.[facility] HospitalIn the event this information is protected by the Federal Confidentiality of Alcohol and Drug Abuse Patient Records regulations: The Federal rules restrict any use of the information to criminally investigate or prosecute any alcohol or drug abuse patient.[facility] HospitalIn the event this information is protected by the Federal Confidentiality of Alcohol and Drug Abuse Patient Records regulations: The Federal rules restrict any use of the information to criminally investigate or prosecute any alcohol or drug abuse patient.[facility] HospitalIn the event this information is protected by the Federal Confidentiality of Alcohol and Drug Abuse Patient Records regulations: The Federal rules restrict any use of the information to criminally investigate or prosecute any alcohol or drug abuse patient.[facility] HospitalIn the event this information is protected by the Federal Confidentiality of Alcohol and Drug Abuse Patient Records regulations: The Federal rules restrict any use of the information to criminally investigate or prosecute any alcohol or drug abuse patient.[facility] HospitalIn the event this information is protected by the Federal Confidentiality of Alcohol and Drug Abuse Patient Records regulations: The Federal rules restrict any use of the information to criminally investigate or prosecute any alcohol or drug abuse patient.[facility] HospitalIn the event this information is protected by the Federal Confidentiality of Alcohol and Drug Abuse Patient Records regulations: The Federal rules restrict any use of the information to criminally investigate or prosecute any alcohol or drug abuse patient.[facility] HospitalIn the event this information is protected by the Federal Confidentiality of Alcohol and Drug Abuse Patient Records regulations: The Federal rules restrict any use of the information to criminally investigate or prosecute any alcohol or drug abuse patient.[facility] HospitalIn the event this information is protected by the Federal Confidentiality of Alcohol and Drug Abuse Patient Records regulations: The Federal rules restrict any use of the information to criminally investigate or prosecute any alcohol or drug abuse patient.[facility] HospitalIn the event this information is protected by the Federal Confidentiality of Alcohol and Drug Abuse Patient Records regulations: The Federal rules restrict any use of the information to criminally investigate or prosecute any alcohol or drug abuse patient.[facility] HospitalIn the event this information is protected by the Federal Confidentiality of Alcohol and Drug Abuse Patient Records regulations: The Federal rules restrict any use of the information to criminally investigate or prosecute any alcohol or drug abuse patient.[facility] HospitalIn the event this information is protected by the Federal Confidentiality of Alcohol and Drug Abuse Patient Records regulations: The Federal rules restrict any use of the information to criminally investigate or prosecute any alcohol or drug abuse patient.[facility] HospitalIn the event this information is protected by the Federal Confidentiality of Alcohol and Drug Abuse Patient Records regulations: The Federal rules restrict any use of the information to criminally investigate or prosecute any alcohol or drug abuse patient.[facility] HospitalIn the event this information is protected by the Federal Confidentiality of Alcohol and Drug Abuse Patient Records regulations: The Federal rules restrict any use of the information to criminally investigate or prosecute any alcohol or drug abuse patient.[facility] HospitalIn the event this information is protected by the Federal Confidentiality of Alcohol and Drug Abuse Patient Records regulations: The Federal rules restrict any use of the information to criminally investigate or prosecute any alcohol or drug abuse patient.[facility] HospitalIn the event this information is protected by the Federal Confidentiality of Alcohol and Drug Abuse Patient Records regulations: The Federal rules restrict any use of the information to criminally investigate or prosecute any alcohol or drug abuse patient.[facility] HospitalIn the event this information is protected by the Federal Confidentiality of Alcohol and Drug Abuse Patient Records regulations: The Federal rules restrict any use of the information to criminally investigate or prosecute any alcohol or drug abuse patient.[facility] HospitalIn the event this information is protected by the Federal Confidentiality of Alcohol and Drug Abuse Patient Records regulations: The Federal rules restrict any use of the information to criminally investigate or prosecute any alcohol or drug abuse patient.[facility] HospitalIn the event this information is protected by the Federal Confidentiality of Alcohol and Drug Abuse Patient Records regulations: The Federal rules restrict any use of the information to criminally investigate or prosecute any alcohol or drug abuse patient.[facility] HospitalIn the event this information is protected by the Federal Confidentiality of Alcohol and Drug Abuse Patient Records regulations: The Federal rules restrict any use of the information to criminally investigate or prosecute any alcohol or drug abuse patient.[facility] HospitalIn the event this information is protected by the Federal Confidentiality of Alcohol and Drug Abuse Patient Records regulations: The Federal rules restrict any use of the information to criminally investigate or prosecute any alcohol or drug abuse patient.[facility] HospitalIn the event this information is protected by the Federal Confidentiality of Alcohol and Drug Abuse Patient Records regulations: The Federal rules restrict any use of the information to criminally investigate or prosecute any alcohol or drug abuse patient.[facility] HospitalIn the event this information is protected by the Federal Confidentiality of Alcohol and Drug Abuse Patient Records regulations: The Federal rules restrict any use of the information to criminally investigate or prosecute any alcohol or drug abuse patient.[facility] HospitalIn the event this information is protected by the Federal Confidentiality of Alcohol and Drug Abuse Patient Records regulations: The Federal rules restrict any use of the information to criminally investigate or prosecute any alcohol or drug abuse patient.[facility] HospitalIn the event this information is protected by the Federal Confidentiality of Alcohol and Drug Abuse Patient Records regulations: The Federal rules restrict any use of the information to criminally investigate or prosecute any alcohol or drug abuse patient.[facility] HospitalIn the event this information is protected by the Federal Confidentiality of Alcohol and Drug Abuse Patient Records regulations: The Federal rules restrict any use of the information to criminally investigate or prosecute any alcohol or drug abuse patient.[facility] HospitalIn the event this information is protected by the Federal Confidentiality of Alcohol and Drug Abuse Patient Records regulations: The Federal rules restrict any use of the information to criminally investigate or prosecute any alcohol or drug abuse patient.[facility] HospitalIn the event this information is protected by the Federal Confidentiality of Alcohol and Drug Abuse Patient Records regulations: The Federal rules restrict any use of the information to criminally investigate or prosecute any alcohol or drug abuse patient.[facility] HospitalIn the event this information is protected by the Federal Confidentiality of Alcohol and Drug Abuse Patient Records regulations: The Federal rules restrict any use of the information to criminally investigate or prosecute any alcohol or drug abuse patient.[facility] HospitalIn the event this information is protected by the Federal Confidentiality of Alcohol and Drug Abuse Patient Records regulations: The Federal rules restrict any use of the information to criminally investigate or prosecute any alcohol or drug abuse patient.[facility] HospitalIn the event this information is protected by the Federal Confidentiality of Alcohol and Drug Abuse Patient Records regulations: The Federal rules restrict any use of the information to criminally investigate or prosecute any alcohol or drug abuse patient.[facility] HospitalIn the event this information is protected by the Federal Confidentiality of Alcohol and Drug Abuse Patient Records regulations: The Federal rules restrict any use of the information to criminally investigate or prosecute any alcohol or drug abuse patient.[facility] HospitalIn the event this information is protected by the Federal Confidentiality of Alcohol and Drug Abuse Patient Records regulations: The Federal rules restrict any use of the information to criminally investigate or prosecute any alcohol or drug abuse patient.[facility] HospitalIn the event this information is protected by the Federal Confidentiality of Alcohol and Drug Abuse Patient Records regulations: The Federal rules restrict any use of the information to criminally investigate or prosecute any alcohol or drug abuse patient.[facility] HospitalIn the event this information is protected by the Federal Confidentiality of Alcohol and Drug Abuse Patient Records regulations: The Federal rules restrict any use of the information to criminally investigate or prosecute any alcohol or drug abuse patient.[facility] HospitalIn the event this information is protected by the Federal Confidentiality of Alcohol and Drug Abuse Patient Records regulations: The Federal rules restrict any use of the information to criminally investigate or prosecute any alcohol or drug abuse patient.[facility] HospitalIn the event this information is protected by the Federal Confidentiality of Alcohol and Drug Abuse Patient Records regulations: The Federal rules restrict any use of the information to criminally investigate or prosecute any alcohol or drug abuse patient.[facility] HospitalIn the event this information is protected by the Federal Confidentiality of Alcohol and Drug Abuse Patient Records regulations: The Federal rules restrict any use of the information to criminally investigate or prosecute any alcohol or drug abuse patient.[facility] HospitalIn the event this information is protected by the Federal Confidentiality of Alcohol and Drug Abuse Patient Records regulations: The Federal rules restrict any use of the information to criminally investigate or prosecute any alcohol or drug abuse patient.[facility] HospitalIn the event this information is protected by the Federal Confidentiality of Alcohol and Drug Abuse Patient Records regulations: The Federal rules restrict any use of the information to criminally investigate or prosecute any alcohol or drug abuse patient.[facility] HospitalIn the event this information is protected by the Federal Confidentiality of Alcohol and Drug Abuse Patient Records regulations: The Federal rules restrict any use of the information to criminally investigate or prosecute any alcohol or drug abuse patient.[facility] HospitalIn the event this information is protected by the Federal Confidentiality of Alcohol and Drug Abuse Patient Records regulations: The Federal rules restrict any use of the information to criminally investigate or prosecute any alcohol or drug abuse patient.[facility] HospitalIn the event this information is protected by the Federal Confidentiality of Alcohol and Drug Abuse Patient Records regulations: The Federal rules restrict any use of the information to criminally investigate or prosecute any alcohol or drug abuse patient.[facility] HospitalIn the event this information is protected by the Federal Confidentiality of Alcohol and Drug Abuse Patient Records regulations: The Federal rules restrict any use of the information to criminally investigate or prosecute any alcohol or drug abuse patient.[facility] HospitalIn the event this information is protected by the Federal Confidentiality of Alcohol and Drug Abuse Patient Records regulations: The Federal rules restrict any use of the information to criminally investigate or prosecute any alcohol or drug abuse patient.[facility] HospitalIn the event this information is protected by the Federal Confidentiality of Alcohol and Drug Abuse Patient Records regulations: The Federal rules restrict any use of the information to criminally investigate or prosecute any alcohol or drug abuse patient.[facility] HospitalIn the event this information is protected by the Federal Confidentiality of Alcohol and Drug Abuse Patient Records regulations: The Federal rules restrict any use of the information to criminally investigate or prosecute any alcohol or drug abuse patient.[facility] HospitalIn the event this information is protected by the Federal Confidentiality of Alcohol and Drug Abuse Patient Records regulations: The Federal rules restrict any use of the information to criminally investigate or prosecute any alcohol or drug abuse patient.[facility] HospitalIn the event this information is protected by the Federal Confidentiality of Alcohol and Drug Abuse Patient Records regulations: The Federal rules restrict any use of the information to criminally investigate or prosecute any alcohol or drug abuse patient.[facility] HospitalIn the event this information is protected by the Federal Confidentiality of Alcohol and Drug Abuse Patient Records regulations: The Federal rules restrict any use of the information to criminally investigate or prosecute any alcohol or drug abuse patient.[facility] HospitalIn the event this information is protected by the Federal Confidentiality of Alcohol and Drug Abuse Patient Records regulations: The Federal rules restrict any use of the information to criminally investigate or prosecute any alcohol or drug abuse patient.[facility] HospitalIn the event this information is protected by the Federal Confidentiality of Alcohol and Drug Abuse Patient Records regulations: The Federal rules restrict any use of the information to criminally investigate or prosecute any alcohol or drug abuse patient.[facility] HospitalIn the event this information is protected by the Federal Confidentiality of Alcohol and Drug Abuse Patient Records regulations: The Federal rules restrict any use of the information to criminally investigate or prosecute any alcohol or drug abuse patient.[facility] HospitalIn the event this information is protected by the Federal Confidentiality of Alcohol and Drug Abuse Patient Records regulations: The Federal rules restrict any use of the information to criminally investigate or prosecute any alcohol or drug abuse patient.[facility] HospitalIn the event this information is protected by the Federal Confidentiality of Alcohol and Drug Abuse Patient Records regulations: The Federal rules restrict any use of the information to criminally investigate or prosecute any alcohol or drug abuse patient.[facility] HospitalIn the event this information is protected by the Federal Confidentiality of Alcohol and Drug Abuse Patient Records regulations: The Federal rules restrict any use of the information to criminally investigate or prosecute any alcohol or drug abuse patient.[facility] HospitalIn the event this information is protected by the Federal Confidentiality of Alcohol and Drug Abuse Patient Records regulations: The Federal rules restrict any use of the information to criminally investigate or prosecute any alcohol or drug abuse patient.[facility] HospitalIn the event this information is protected by the Federal Confidentiality of Alcohol and Drug Abuse Patient Records regulations: The Federal rules restrict any use of the information to criminally investigate or prosecute any alcohol or drug abuse patient.[facility] HospitalIn the event this information is protected by the Federal Confidentiality of Alcohol and Drug Abuse Patient Records regulations: The Federal rules restrict any use of the information to criminally investigate or prosecute any alcohol or drug abuse patient.[facility] HospitalIn the event this information is protected by the Federal Confidentiality of Alcohol and Drug Abuse Patient Records regulations: The Federal rules restrict any use of the information to criminally investigate or prosecute any alcohol or drug abuse patient.[facility] HospitalIn the event this information is protected by the Federal Confidentiality of Alcohol and Drug Abuse Patient Records regulations: The Federal rules restrict any use of the information to criminally investigate or prosecute any alcohol or drug abuse patient.[facility] HospitalIn the event this information is protected by the Federal Confidentiality of Alcohol and Drug Abuse Patient Records regulations: The Federal rules restrict any use of the information to criminally investigate or prosecute any alcohol or drug abuse patient.[facility] HospitalIn the event this information is protected by the Federal Confidentiality of Alcohol and Drug Abuse Patient Records regulations: The Federal rules restrict any use of the information to criminally investigate or prosecute any alcohol or drug abuse patient.[facility] HospitalIn the event this information is protected by the Federal Confidentiality of Alcohol and Drug Abuse Patient Records regulations: The Federal rules restrict any use of the information to criminally investigate or prosecute any alcohol or drug abuse patient.[facility] HospitalIn the event this information is protected by the Federal Confidentiality of Alcohol and Drug Abuse Patient Records regulations: The Federal rules restrict any use of the information to criminally investigate or prosecute any alcohol or drug abuse patient.[facility] HospitalIn the event this information is protected by the Federal Confidentiality of Alcohol and Drug Abuse Patient Records regulations: The Federal rules restrict any use of the information to criminally investigate or prosecute any alcohol or drug abuse patient.[facility] HospitalIn the event this information is protected by the Federal Confidentiality of Alcohol and Drug Abuse Patient Records regulations: The Federal rules restrict any use of the information to criminally investigate or prosecute any alcohol or drug abuse patient.[facility] HospitalIn the event this information is protected by the Federal Confidentiality of Alcohol and Drug Abuse Patient Records regulations: The Federal rules restrict any use of the information to criminally investigate or prosecute any alcohol or drug abuse patient.[facility] HospitalIn the event this information is protected by the Federal Confidentiality of Alcohol and Drug Abuse Patient Records regulations: The Federal rules restrict any use of the information to criminally investigate or prosecute any alcohol or drug abuse patient.[facility] HospitalIn the event this information is protected by the Federal Confidentiality of Alcohol and Drug Abuse Patient Records regulations: The Federal rules restrict any use of the information to criminally investigate or prosecute any alcohol or drug abuse patient.[facility] HospitalIn the event this information is protected by the Federal Confidentiality of Alcohol and Drug Abuse Patient Records regulations: The Federal rules restrict any use of the information to criminally investigate or prosecute any alcohol or drug abuse patient.[facility] HospitalIn the event this information is protected by the Federal Confidentiality of Alcohol and Drug Abuse Patient Records regulations: The Federal rules restrict any use of the information to criminally investigate or prosecute any alcohol or drug abuse patient.[facility] HospitalIn the event this information is protected by the Federal Confidentiality of Alcohol and Drug Abuse Patient Records regulations: The Federal rules restrict any use of the information to criminally investigate or prosecute any alcohol or drug abuse patient.[facility] HospitalIn the event this information is protected by the Federal Confidentiality of Alcohol and Drug Abuse Patient Records regulations: The Federal rules restrict any use of the information to criminally investigate or prosecute any alcohol or drug abuse patient.[facility] HospitalIn the event this information is protected by the Federal Confidentiality of Alcohol and Drug Abuse Patient Records regulations: The Federal rules restrict any use of the information to criminally investigate or prosecute any alcohol or drug abuse patient.[facility] HospitalIn the event this information is protected by the Federal Confidentiality of Alcohol and Drug Abuse Patient Records regulations: The Federal rules restrict any use of the information to criminally investigate or prosecute any alcohol or drug abuse patient.[facility] HospitalIn the event this information is protected by the Federal Confidentiality of Alcohol and Drug Abuse Patient Records regulations: The Federal rules restrict any use of the information to criminally investigate or prosecute any alcohol or drug abuse patient.[facility] HospitalIn the event this information is protected by the Federal Confidentiality of Alcohol and Drug Abuse Patient Records regulations: The Federal rules restrict any use of the information to criminally investigate or prosecute any alcohol or drug abuse patient.[facility] HospitalIn the event this information is protected by the Federal Confidentiality of Alcohol and Drug Abuse Patient Records regulations: The Federal rules restrict any use of the information to criminally investigate or prosecute any alcohol or drug abuse patient.[facility] HospitalIn the event this information is protected by the Federal Confidentiality of Alcohol and Drug Abuse Patient Records regulations: The Federal rules restrict any use of the information to criminally investigate or prosecute any alcohol or drug abuse patient.[facility] HospitalIn the event this information is protected by the Federal Confidentiality of Alcohol and Drug Abuse Patient Records regulations: The Federal rules restrict any use of the information to criminally investigate or prosecute any alcohol or drug abuse patient.[facility] HospitalIn the event this information is protected by the Federal Confidentiality of Alcohol and Drug Abuse Patient Records regulations: The Federal rules restrict any use of the information to criminally investigate or prosecute any alcohol or drug abuse patient.[facility] HospitalIn the event this information is protected by the Federal Confidentiality of Alcohol and Drug Abuse Patient Records regulations: The Federal rules restrict any use of the information to criminally investigate or prosecute any alcohol or drug abuse patient.[facility] HospitalIn the event this information is protected by the Federal Confidentiality of Alcohol and Drug Abuse Patient Records regulations: The Federal rules restrict any use of the information to criminally investigate or prosecute any alcohol or drug abuse patient.[facility] HospitalIn the event this information is protected by the Federal Confidentiality of Alcohol and Drug Abuse Patient Records regulations: The Federal rules restrict any use of the information to criminally investigate or prosecute any alcohol or drug abuse patient.[facility] HospitalIn the event this information is protected by the Federal Confidentiality of Alcohol and Drug Abuse Patient Records regulations: The Federal rules restrict any use of the information to criminally investigate or prosecute any alcohol or drug abuse patient.[facility] HospitalIn the event this information is protected by the Federal Confidentiality of Alcohol and Drug Abuse Patient Records regulations: The Federal rules restrict any use of the information to criminally investigate or prosecute any alcohol or drug abuse patient.[facility] HospitalIn the event this information is protected by the Federal Confidentiality of Alcohol and Drug Abuse Patient Records regulations: The Federal rules restrict any use of the information to criminally investigate or prosecute any alcohol or drug abuse patient.[facility] HospitalIn the event this information is protected by the Federal Confidentiality of Alcohol and Drug Abuse Patient Records regulations: The Federal rules restrict any use of the information to criminally investigate or prosecute any alcohol or drug abuse patient.[facility] HospitalIn the event this information is protected by the Federal Confidentiality of Alcohol and Drug Abuse Patient Records regulations: The Federal rules restrict any use of the information to criminally investigate or prosecute any alcohol or drug abuse patient.[facility] HospitalIn the event this information is protected by the Federal Confidentiality of Alcohol and Drug Abuse Patient Records regulations: The Federal rules restrict any use of the information to criminally investigate or prosecute any alcohol or drug abuse patient.[facility] HospitalIn the event this information is protected by the Federal Confidentiality of Alcohol and Drug Abuse Patient Records regulations: The Federal rules restrict any use of the information to criminally investigate or prosecute any alcohol or drug abuse patient.[facility] HospitalIn the event this information is protected by the Federal Confidentiality of Alcohol and Drug Abuse Patient Records regulations: The Federal rules restrict any use of the information to criminally investigate or prosecute any alcohol or drug abuse patient.[facility] HospitalIn the event this information is protected by the Federal Confidentiality of Alcohol and Drug Abuse Patient Records regulations: The Federal rules restrict any use of the information to criminally investigate or prosecute any alcohol or drug abuse patient.[facility] HospitalIn the event this information is protected by the Federal Confidentiality of Alcohol and Drug Abuse Patient Records regulations: The Federal rules restrict any use of the information to criminally investigate or prosecute any alcohol or drug abuse patient.[facility] Reason for Visit (unrecogniz ed section and content) Reason Onset Date Comments Refill Request 05/31/2021 Reason Onset Date Comments Radiology Mammogram 06/07/2021 at [facility] Reason Comments Consult cellulitis above rig ht breast Specialty Diagnoses / Procedures Referred By Jen t Referred To Contact General Surgery Diagnoses Cellulitis of female breast Procedures CONSULT TO GENERAL SURGERY OFFICE/OUTPATIENT [facility] 60-74 MINUTES Celeste Salcedo, RAMAKRISHNA.ACTUARIAL ASSOCIATE [address] [place] [address] Referral ID Status Reason Start Date Expiration Date Visits Requested Visits Authorized [id number] Pending Review PCP Requested Referral 06/24/2021 06/24/2022 1 1 Reason Comments Yearly Exam Reason Comments Radiology Mammogram Specialty Diagnoses / Procedures Referred By Jen t Referred To Contact BR IMAGING Diagnoses Abnormal mammogram Procedures HARSH DIAGNOSTIC RT DIAGNOSTIC MAMMOGRAPHY COMPUTER-AIDED DETCJ Akira Poole MD [address] [place] [address] [facility] [address] [address] Referral ID Status Reason Start Date Expiration Date V isits Requested Visits Authorized [id number] Closed Auto-Generate d Referral 06/07/2021 07/07/2022 1 1 Reason Comments Results Right breast mass, U S and Mammogram Reason Onset Date Comments Refill Request 07/22/2021 Reason Comments Scheduling right breast biopsy Reason Comments Procedure Reason Comments Follow Up right breast biopsy results Reason Comments Health Associate - Other Reason Comments Consult Breast Cancer [...] COUNSELING EACH 30 [place] [address] [place] [address] [facility] [place] [id number] Referral ID Status Reason Start Date Expiration Date V isits Requested Visits Authorized [id number] Closed PCP Requested Referral Auto-Generated Referral 09/26/2021 12/25/2021 1 1 Reason Comments OT EVAL Specialty Diagnoses / Procedures [facility] Diagnoses Malignant neoplasm of 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, estrogen receptor positive (HCC) Procedures CONSULT TO BREAST REHAB PROGRAM THERAPEUTIC EXERCISES RE, EA 15 MIN. THERAPEUT ACTVITY DIRECT PT CONTACT EACH 15 MIN Dana Flores PA-C [address] [place] [address] [facility] [address] [address] Referral ID Status Reason Start Date Expiration Date Visits Requested Visits Authorized [id number] Authorized PCP Requested Referral Auto-Generate d Referral [...] MG Nahun Zavaleta, DO [address] [place] [address] [facility] [address] [place] [address] Referral ID Status Reason Start Date Expiration Date V isits Requested Visits Authorized [id number] Authorized 02/13/2022 03/08/2023 99 99 Reason Comments Care Coordination Pain Reason Comments Health Associate - ED Follow Up Reason Comments Refill Request Reason Onset Date Comments Refill Request 06/07/2022 Reason Comments F/U 6 Month Reason Comments Results Reason Comments Consult Specialty Diagnoses / Procedures Referred By Contac t Referred To Contact Endocrinology Diagnoses Low TSH level Procedures CONSULT TO ENDOCRINOLOGY OFFICE/OUTPATIENT NEW HIGH MDM 60-74 MINUTES Celeste Salcedo, INFORMATICS NURSE.ACTUARIAL ASSOCIATE [address] [place] [address] Referral ID Status Reason Start Date Expiration Date Visits Requested Visits Authorized [id number] Pending Review PCP Requested Referral 06/23/2022 06/23/2023 [...] & NECK REAL TIME IMGE Celeste Peterson, INFORMATICS NURSE.ACTUARIAL ASSOCIATE [address] [place] [address] [place] [address] Referral ID Status Reason Start Date Expiration Date V isits Requested Visits Authorized [id number] Closed Auto-Generate d Referral 06/20/2022 07/20/2023 1 1 Specialty Diagnoses / Procedures Referred By Contac t Referred To Contact US IMAGING Diagnoses Nontoxic multinodular goiter Procedures US THYROID/PARATHYROID US SOFT TISSUE HEAD & NECK REAL TIME IMGE Patrice Roy MD [address] [place] [address] [place] [address] Referral ID Status Reason Start Date Expiration Date V isits Requested Visits Authorized [id number] Closed Auto-Generate d Referral 12/15/2022 01/14/2024 1 1 Reason Comments No Show Reason Comments Future Appointment Reason Comments Established Patient Reason Onset Date Comments Refill Request 05/31/2023 Reason Comments Consult Epigastric pain Specialty Diagnoses / Procedures Referred By Contac t Referred To Contact General Surgery Diagnoses Epigastric pain Procedures CONSULT TO GENERAL SURGERY OFFICE/OUTPATIENT [facility] MDM 60 MINUTES Nahun Zavaleta, [address] [place] [address] Referral ID Status Reason Start Date Expiration Date V isits Requested Visits Authorized [id number] Closed PCP Requested Referral 05/25/2023 05/24/2024 1 [...] MAMMOGRAPHY COMPUTER-AIDED DETCJ UNI Dana Flores PA-C [address] [place] [address] [facility] Imaging [address] [place] [address] Referral ID Status Reason Start Date Expiration Date V isits Requested Visits Authorized [id number] Closed Auto-Generate d Referral 04/23/2022 05/23/2023 1 1 Reason Comments Radiology NM Reason Comments 06/11/2023 LAP HERNIA REPAIR MEJIA Reason Onset Date Comments Refill Request 02/22/2024 Reason Onset Date Comments Refill Request 03/21/2024 Reason Onset Date Comments Refill Request 06/05/2024 Care Teams (unrecognized sec tion and content) Bank Advisor Relationship Specialty Start Date End Date Akira Pierre MD [address] [place] [address] PCP - General Internal Medicine 12/22/11 Bank Advisor Relationship Specialty Start Date End Date Akira Pierre MD [address] [place] [address] PCP - General Internal Medicine 12/22/11 Bank Advisor Relationship Specialty Start Date End Date Akira Pierre MD [facility] [place] [address] PCP - General Internal Medicine 12/22/11 Bank Advisor Relationship Specialty Start Date End Date Akira Pierre MD [address] [place] [address], [place] [address] PCP - General Internal Medicine 12/22/11 Bank Advisor Relationship Specialty Start Date End Date Akira Pierre MD [address] [place] [address], [place] [address] PCP - General Internal Medicine 12/22/11 Bank Advisor Relationship Specialty Start Date End Date Akira Pierre MD [address] [place] [address], [place] [address] PCP - General Internal Medicine 12/22/11 Bank Advisor Relationship Specialty Start Date End Date Akira Pierre MD [address] [place] [address], [place] [address] PCP - General Internal Medicine 12/22/11 Bank Advisor Relationship Specialty Start Date End Date Akira Pierre MD [facility] [place] [address] PCP - General Internal Medicine 12/22/11 Bank Advisor Relationship Specialty Start Date End Date Akira Pierre MD [address] [place] [address], [place] [address] PCP - General Internal Medicine 12/22/11 Bank Advisor Relationship Specialty Start Date End Date Akira Pierre MD [address] [place] [address], [place] [address] PCP - General Internal Medicine 12/22/11 Bank Advisor Relationship Specialty Start Date End Date Akira Pierre MD [address] [place] [address] PCP - General Internal Medicine 12/22/11 Bank Advisor Relationship Specialty Start Date End Date Akira Pierre MD [address] [place] [address] PCP - General Internal Medicine 12/22/11 [place] [address] [place] [address] Physician Radiation Oncology 09/26/21 Bank Advisor Relationship Specialty Start Date End Date Akira Pierre MD [address] [place] [address] PCP - General Internal Medicine 12/22/11 [place] [address] [place] [address] Physician Radiation Oncology 09/26/21 Bank Advisor Relationship Specialty Start Date End Date Akira Pierre MD [address] [place] [address] PCP - General Internal Medicine 12/22/11 [place] [address] [place] [address] Physician Radiation Oncology 09/26/21 Bank Advisor Relationship Specialty Start Date End Date Akira Pierre MD [address] [place] [address] PCP - General Internal Medicine 12/22/11 [place] [address] [place] [address] Physician Radiation Oncology 09/26/21 Bank Advisor Relationship Specialty Start Date End Date Akira Pierre MD [address] [place] [address] PCP - General Internal Medicine 12/22/11 [place] [address] [place] [address] Physician Radiation Oncology 09/26/21 Bank Advisor Relationship Specialty Start Date End Date Akira Pierre MD [address] [place] [address] PCP - General Internal Medicine 12/22/11 [place] [address] [place] [address] Physician Radiation Oncology 09/26/21 Bank Advisor Relationship Specialty Start Date End Date Akira Pierre MD [address] [place] [address] PCP - General Internal Medicine 12/22/11 [place] [address] [place] [address] Physician Radiation Oncology 09/26/21 Bank Advisor Relationship Specialty Start Date End Date Akira Pierre MD [address] [place] [address] PCP - General Internal Medicine 12/22/11 [place] [address] [place] [address] Physician Radiation Oncology 09/26/21 Bank Advisor Relationship Specialty Start Date End Date Akira Pierre MD [address] [place] [address] PCP - General Internal Medicine 12/22/11 [place] [address] [place] [address] Physician Radiation Oncology 09/26/21 Bank Advisor Relationship Specialty Start Date End Date Akira Pierre MD [address] [place] [address] PCP - General Internal Medicine 12/22/11 [place] [address] [place] [address] Physician Radiation Oncology 09/26/21 Bank Advisor Relationship Specialty Start Date End Date Akira Pierre MD [address] [place] [address] PCP - General Internal Medicine 12/22/11 [place] [address] [place] [address] Physician Radiation Oncology 09/26/21 Bank Advisor Relationship Specialty Start Date End Date Akira Pierre MD [address] [place] [address] PCP - General Internal Medicine 12/22/11 [place] [address] [place] [address] Physician Radiation Oncology 09/26/21 Gladis Byrd MD, [address] [place] [address] Physician Radiation Oncology 11/01/21 Bank Advisor Relationship Specialty Start Date End Date Akira Pierre MD [address] [place] [address] PCP - General Internal Medicine 12/22/11 [place] [address] [place] [address] Physician Radiation Oncology 09/26/21 Gladis Byrd MD, [address] [facility] [place] [address] Physician Radiation Oncology 11/01/21 Bank Advisor Relationship Specialty Start Date End Date Akira Pierre MD [address] [place] [address] PCP - General Internal Medicine 12/22/11 [place] [address] [place] [address] Physician Radiation Oncology 09/26/21 Gladis Byrd MD, [address] [facility] [place] [address] Physician Radiation Oncology 11/01/21 Bank Advisor Relationship Specialty Start Date End Date Akira Pierre MD [address] [place] [address] PCP - General Internal Medicine 12/22/11 [place] [address] [place] [address] Physician Radiation Oncology 09/26/21 Gladis Byrd MD, [address] [place] [address] Physician Radiation Oncology 11/01/21 Bank Advisor Relationship Specialty Start Date End Date Akira Pierre MD [address] [place] [address] PCP - General Internal Medicine 12/22/11 [place] [address] [place] [address] Physician Radiation Oncology 09/26/21 Gladis Byrd MD, [address] [facility] [place] [address] Physician Radiation Oncology 11/01/21 Bank Advisor Relationship Specialty Start Date End Date Akira Pierre MD [address] [place] [address] PCP - General Internal Medicine 12/22/11 [place] [address] [place] [address] Physician Radiation Oncology 09/26/21 Gladis Byrd MD, [address] [place] [facility] [address] Physician Radiation Oncology 11/01/21 Bank Advisor Relationship Specialty Start Date End Date Akira Pierre MD [address] [place] [address] PCP - General Internal Medicine 12/22/11 [place] [address] [place] [address] Physician Radiation Oncology 09/26/21 Gladis Byrd MD, [address] [facility] [place] [address] Physician Radiation Oncology 11/01/21 Bank Advisor Relationship Specialty Start Date End Date Akira Pierre MD [address] [place] [address] PCP - General Internal Medicine 12/22/11 [place] [address] [place] [address] Physician Radiation Oncology 09/26/21 Gladis Byrd MD, [address] [facility] [place] [address] Physician Radiation Oncology 11/01/21 Bank Advisor Relationship Specialty Start Date End Date Akira Pierre MD [address] [place] [address] PCP - General Internal Medicine 12/22/11 [place] [address] [place] [address] Physician Radiation Oncology 09/26/21 Gladis Byrd MD, [address] [place] [address] Physician Radiation Oncology 11/01/21 Bank Advisor Relationship Specialty Start Date End Date Akira Pierre MD [address] [place] [address] PCP - General Internal Medicine 12/22/11 [place] [address] [place] [address] Physician Radiation Oncology 09/26/21 Gladis Byrd MD, [address] [place] [address] Physician Radiation Oncology 11/01/21 Nahun Zavaleta DO [address] [place] [address] Hematology/Oncology 03/18/22 Bank Advisor Relationship Specialty Start Date End Date Akira Pierre MD [address] [place] [address] PCP - General Internal Medicine 12/22/11 [place] [address] [place] [address] Physician Radiation Oncology 09/26/21 Gladis Byrd MD, [address] [place] [address] Physician Radiation Oncology 11/01/21 Nahun Zavaleta, DO [address] [place] [address] Hematology/Oncology 03/18/22 Bank Advisor Relationship Specialty Start Date End Date Akira Pierre MD [address] [place] [address] PCP - General Internal Medicine 12/22/11 [place] [address] [place] [address] Physician Radiation Oncology 09/26/21 Gladis Byrd MD, MD [address] [place] [address] Physician Radiation Oncology 11/01/21 Nahun Zavaleta, DO [address] [place] [address] Hematology/Oncology 03/18/22 Bank Advisor Relationship Specialty Start Date End Date Akira Pierre MD [address] [place] [address] PCP - General Internal Medicine 12/22/11 [place] [address] [place] [address] Physician Radiation Oncology 09/26/21 Gladis Byrd MD, [address] [place] [address] Physician Radiation Oncology 11/01/21 Nahun Zavaleta, DO [address] [place] [address] Hematology/Oncology 03/18/22 Team Status: Active Member Role Status Dates Akira Pierre MD Primary Care Provider Active Team Status: Inactive Member Role Status Dates Akira Pierre MD Primary Care Provider Active Dr. Bandar Flanagan MD Emergency Provider Active Bank Advisor Relationship Specialty Start Date End Date Akira Pierre MD [address] [place] [address] PCP - General Internal Medicine 12/22/11 [place] [address] [place] [address] Physician Radiation Oncology 09/26/21 Gladis Byrd MD, [address] [place] [address] Physician Radiation Oncology 11/01/21 Nahun Zavaleta, DO [address] [facility] [place] [address] Hematology/Oncology 03/18/22 Bank Advisor Relationship Specialty Start Date End Date Akira Pierre MD [address] [place] [address] PCP - General Internal Medicine 12/22/11 [place] [address] [place], [place] [address] Physician Radiation Oncology 09/26/21 Gladis Byrd MD, [address] [place] [address] Physician Radiation Oncology 11/01/21 Nahun Zaavleta, DO [address] [place] [address] Hematology/Oncology 03/18/22 Bank Advisor Relationship Specialty Start Date End Date Akira Pierre MD [address] [place] [address] PCP - General Internal Medicine 12/22/11 [place] [address] [place] [address] Physician Radiation Oncology 09/26/21 Gladis Byrd MD, [address] [place] [address] Physician Radiation Oncology 11/01/21 Nahun Zavaleta, DO [address] [place] [address] Hematology/Oncology 03/18/22 Bank Advisor Relationship Specialty Start Date End Date Akira Pierre MD [address] [place] [address] PCP - General Internal Medicine 12/22/11 [place] [address] [place] [address] Physician Radiation Oncology 09/26/21 Gladis Byrd MD, [address] [place] [address] Physician Radiation Oncology 11/01/21 Nahun Zavaleta, DO [address] [facility] [place] [address] Hematology/Oncology 03/18/22 Bank Advisor Relationship Specialty Start Date End Date Akira Pierre MD [address] [place] [address] PCP - General Internal Medicine 12/22/11 [place] [address] [place] [address] Physician Radiation Oncology 09/26/21 Gladis Byrd MD, [address] [place] [address] Physician Radiation Oncology 11/01/21 Nahun Zavaleta, DO [address] [place] [address] Hematology/Oncology 03/18/22 Bank Advisor Relationship Specialty Start Date End Date Akira Pierre MD [address] [place] [address] PCP - General Internal Medicine 12/22/11 [place] [address] [place] [address] Physician Radiation Oncology 09/26/21 Gladis Byrd MD, MD [address] [place] [address] Physician Radiation Oncology 11/01/21 Nahun Zavaleta, DO [address] [place] [address] Hematology/Oncology 03/18/22 Bank Advisor Relationship Specialty Start Date End Date Akira Pierre MD [address] [place] [address] PCP - General Internal Medicine 12/22/11 [place] [address] [place] [address] Physician Radiation Oncology 09/26/21 Gladis Byrd MD, [address] [place] [address] Physician Radiation Oncology 11/01/21 Nahun Zavaleta, DO [address] [place] [address] Hematology/Oncology 03/18/22 Bank Advisor Relationship Specialty Start Date End Date Akira Pierre MD [address] [place] [address] PCP - General Internal Medicine 12/22/11 [place] [address] [place] [address] Physician Radiation Oncology 09/26/21 Gladis Bryd MD, [address] [place] [address] Physician Radiation Oncology 11/01/21 Nahun Zavaleta, DO [address] [place] [address] Hematology/Oncology 03/18/22 Bank Advisor Relationship Specialty Start Date End Date Akira Pierre MD [address] [place] [address] PCP - General Internal Medicine 12/22/11 [place] [address] [place] [address] Physician Radiation Oncology 09/26/21 Gladis Byrd MD, [address] [place] [address] Physician Radiation Oncology 11/01/21 Nahun Zavaleta, DO [address] [place] [address] Hematology/Oncology 03/18/22 Bank Advisor Relationship Specialty Start Date End Date Akira Pierre MD [address] [place] [address] PCP - General Internal Medicine 12/22/11 [place] [address] [place] [address] Physician Radiation Oncology 09/26/21 Gladis Byrd MD, [address] [place] [address] Physician Radiation Oncology 11/01/21 Nahun Zavaleta, DO [address] [place] [address] Hematology/Oncology 03/18/22 Bank Advisor Relationship Specialty Start Date End Date Akira Pierre MD [address] [place] [address] PCP - General Internal Medicine 12/22/11 [place] [address] [place] [address] Physician Radiation Oncology 09/26/21 Gladis Byrd MD, [address] [place] [address] Physician Radiation Oncology 11/01/21 Nahun Zavaleta, DO [address] [place] [address] Hematology/Oncology 03/18/22 Bank Advisor Relationship Specialty Start Date End Date Akira Pierre MD [address] [place] [address] PCP - General Internal Medicine 12/22/11 [place] [address] [place] [address] Physician Radiation Oncology 09/26/21 Gladis Byrd MD, MD [address] [place] [address] Physician Radiation Oncology 11/01/21 Nahun Zavaleta, DO [address] [place] [address] Hematology/Oncology 03/18/22 Team Status: Active Member Role Status Dates Akira HAYNES MD Primary Care Provider Active Team Status: Inactive Member Role Status Dates Akira HAYNES MD Primary Care Provider Active Dr. Bandar Flanagan MD Attending Provider, Emergency Provider Active Team Status: Inactive Member Role Status Dates Akira HAYNES MD Primary Care Provider Active Dr. Quinton Myers MD Attending Provider Active Bank Advisor Relationship Specialty Start Date End Date Akira Pierre MD [address] [facility] [place] [address] PCP - General Internal Medicine 12/22/11 [place] [address] [place] [address] Physician Radiation Oncology 09/26/21 Gladis Byrd MD, [address] [place] [address] Physician Radiation Oncology 11/01/21 Nahun Zavaleta, DO [address] [place] [address] Hematology/Oncology 03/18/22 Bank Advisor Relationship Specialty Start Date End Date Akira Pierre MD [address] [facility] [place] [address] PCP - General Internal Medicine 12/22/11 [place] [address] [place], [place] [address] Physician Radiation Oncology 09/26/21 Gladis Byrd MD, [address] [place] [address] Physician Radiation Oncology 11/01/21 Nahun Zavaleta DO [address] [place] [address] Hematology/Oncology 03/18/22 Bank Advisor Relationship Specialty Start Date End Date Akira Pierre MD [address] [place] [address] PCP - General Internal Medicine 12/22/11 [place] [address] [place], [place] [address]36 Physician Radiation Oncology 09/26/21 Gladis Byrd MD, [address] [facility] [place] [address] Physician Radiation Oncology 11/01/21 Nahun Zavaleta DO [address] [place] [address] Hematology/Oncology 03/18/22 Bank Advisor Relationship Specialty Start Date End Date Akira Pierre MD [address] [place] [address] PCP - General Internal Medicine 12/22/11 [place] [address] [place] [address] Physician Radiation Oncology 09/26/21 Gladis Byrd MD, [address] [place] [address] Physician Radiation Oncology 11/01/21 Nahun Zavaleta DO [address] [place] [address] Hematology/Oncology 03/18/22 Bank Advisor Relationship Specialty Start Date End Date Akira Pierre MD [address] [place] [address] PCP - General Internal Medicine 12/22/11 [place] [address] [place] [address] Physician Radiation Oncology 09/26/21 Gladis Byrd MD, [address] [place] [address] Physician Radiation Oncology 11/01/21 Nahun Zavaleta DO [address] [place] [address] Hematology/Oncology 03/18/22 Bank Advisor Relationship Specialty Start Date End Date Akira Pierre MD [address] [facility] [place] [address] PCP - General Internal Medicine 12/22/11 [place] [address] [place] [address] Physician Radiation Oncology 09/26/21 Gladis Byrd MD, [address] [place] [address] Physician Radiation Oncology 11/01/21 Nahun Zavaleta DO [address] [place] [address] Hematology/Oncology 03/18/22 Bank Advisor Relationship Specialty Start Date End Date Akira Pierre MD [address] [place] [address] PCP - General Internal Medicine 12/22/11 [place] [address] [place] [address] Physician Radiation Oncology 09/26/21 Gladis Byrd MD, [address] [place] [address] Physician Radiation Oncology 11/01/21 Nahun Zavaleta DO [address] [place] [address] Hematology/Oncology 03/18/22 Bank Advisor Relationship Specialty Start Date End Date Akira Pierre MD [address] [facility] [place] [address] PCP - General Internal Medicine 12/22/11 [place] [address] [place] [address] Physician Radiation Oncology 09/26/21 Gladis Byrd MD, [address] [place] [address] Physician Radiation Oncology 11/01/21 Nahun Zavaleta DO [address] [place] [address] Hematology/Oncology 03/18/22 Bank Advisor Relationship Specialty Start Date End Date Akira Pierre MD [address] [place] [address] PCP - General Internal Medicine 12/22/11 [place] [address] [place] [address] Physician Radiation Oncology 09/26/21 Gladis Byrd MD, [address] [place] [address] Physician Radiation Oncology 11/01/21 Nahun Zavaleta DO [address] [place] [address] Hematology/Oncology 03/18/22 Bank Advisor Relationship Specialty Start Date End Date Akira Pierre MD [address] [place] [address] PCP - General Internal Medicine 12/22/11 [place] [address] [place] [address] Physician Radiation Oncology 09/26/21 Gladis Byrd MD, [address] [place] [address] Physician Radiation Oncology 11/01/21 Nahun Zavaleta DO [address] [place] [address] Hematology/Oncology 03/18/22 Bank Advisor Relationship Specialty Start Date End Date Akira Pierre MD [address] [place], [place] [address] PCP - General Internal Medicine 12/22/11 [place] [address] [place] [address] Physician Radiation Oncology 09/26/21 Gladis Byrd MD, [address] [place] [address] Physician Radiation Oncology 11/01/21 Nahun Zavaleta DO [address] [place] [address] Hematology/Oncology 03/18/22 Bank Advisor Relationship Specialty Start Date End Date Akira Pierre MD [address] [place] [address] PCP - General Internal Medicine 12/22/11 [place] [address] [place] [address] Physician Radiation Oncology 09/26/21 Gladis Byrd MD [address] [place] [address] Physician Radiation Oncology 11/01/21 Nahun Zavaleta DO [address] [place] [address] Hematology/Oncology 03/18/22 Bank Advisor Relationship Specialty Start Date End Date Akira Pierre MD [address] [place] [address] PCP - General Internal Medicine 12/22/11 [place] [address] [place] [address] Physician Radiation Oncology 09/26/21 Gladis Byrd MD [address] [place] [address] Physician Radiation Oncology 11/01/21 Nahun Zavaleta DO [address] [place] [address] Hematology/Oncology 03/18/22 Bank Advisor Relationship Specialty Start Date End Date Akira Pierre MD [address] [facility] [place] [address] PCP - General Internal Medicine 12/22/11 [place] [address] [place] [address] Physician Radiation Oncology 09/26/21 Gladis Byrd MD [address] [place] [address] Physician Radiation Oncology 11/01/21 Nahun Zavaleta DO [address] [place] [address] Hematology/Oncology 03/18/22 Bank Advisor Relationship Specialty Start Date End Date Akira Pierre MD [address] [place] [address] PCP - General Internal Medicine 12/22/11 [place] [address] [place] [address] Physician Radiation Oncology 09/26/21 Gladis Byrd MD [address] [place] [address] Physician Radiation Oncology 11/01/21 Nahun Zavaleta DO [address] [place] [address] Hematology/Oncology 03/18/22 Bank Advisor Relationship Specialty Start Date End Date Akira Pierre MD [address] [place] [address] PCP - General Internal Medicine 12/22/11 [place] [address] [place] [address] Physician Radiation Oncology 09/26/21 Gladis Byrd MD [address] [place] [address] Physician Radiation Oncology 11/01/21 Nahun Zavaleta DO [address] [place] [address] Hematology/Oncology 03/18/22 Bank Advisor Relationship Specialty Start Date End Date Akira Pierre MD [address] [place] [address] PCP - General Internal Medicine 12/22/11 [place] [address] [place] [address] Physician Radiation Oncology 09/26/21 Gladis Byrd MD [address] [place] [address] Physician Radiation Oncology 11/01/21 Nahun Zavaleta DO [address] [place] [address] Hematology/Oncology 03/18/22 Bank Advisor Relationship Specialty Start Date End Date Akira Pierre MD [address] [place] [address] PCP - General Internal Medicine 12/22/11 [place] [address] [place] [address] Physician Radiation Oncology 09/26/21 Gladis Byrd MD [address] [place] [address] Physician Radiation Oncology 11/01/21 Nahun Zavaleta DO [address] [place] [address] Hematology/Oncology 03/18/22 Bank Advisor Relationship Specialty Start Date End Date Akira Pierre MD [address] [place] [address] PCP - General Internal Medicine 12/22/11 [place] [address] [place] [address] Physician Radiation Oncology 09/26/21 Gladis Byrd MD [address] [place] [address] Physician Radiation Oncology 11/01/21 Nahun Zavaleta DO [address] [place] [address] Hematology/Oncology 03/18/22 Bank Advisor Relationship Specialty Start Date End Date Akira Pierre MD [address] [place] [address] PCP - General Internal Medicine 12/22/11 [place] [address] [place], [place] [address] Physician Radiation Oncology 09/26/21 Gladis Byrd MD [address] [place] [address] Physician Radiation Oncology 11/01/21 Nahun Zavaleta DO [address] [place] [address] Hematology/Oncology 03/18/22 Bank Advisor Relationship Specialty Start Date End Date Akira Pierre MD [address] [place] [address] PCP - General Internal Medicine 12/22/11 [place] [address] [place] [address] Physician Radiation Oncology 09/26/21 Gladis Byrd MD [address] [place] [address] Physician Radiation Oncology 11/01/21 Nahun Zavaleta DO [address] [place] [address] Hematology/Oncology 03/18/22 Team Status: Active Member Role Status Dates Dr. Akira Pierre MD Primary Care Provider Active Team Status: Inactive Member Role Status Dates Dr. Akira Pierre MD Primary Care Provider Active REYNA CASIANO Attending Provider Active Bank Advisor Relationship Specialty Start Date End Date Akira Pierre MD [address] [place], [place] [address] PCP - General Internal Medicine 12/22/11 [place] [address] [place] [address] Physician Radiation Oncology 09/26/21 Gladis Byrd MD [address] [place] [address] Physician Radiation Oncology 11/01/21 Nahun Zavaleta DO [address] [place] [address] Hematology/Oncology 03/18/22 Bank Advisor Relationship Specialty Start Date End Date Akira Pierre MD [address] [place] [address] PCP - General Internal Medicine 12/22/11 [place] [address] [place] [address] Physician Radiation Oncology 09/26/21 Gladis Byrd MD [address] [place] [address] Physician Radiation Oncology 11/01/21 Nahun Zavaleta DO [address] [place] [address] Hematology/Oncology 03/18/22 Bank Advisor Relationship Specialty Start Date End Date Akira Pierre MD [address] [place] [address] PCP - General Internal Medicine 12/22/11 [place] [address] [place], [place] [address] Physician Radiation Oncology 09/26/21 Gladis Byrd MD [address] [place] [address] Physician Radiation Oncology 11/01/21 Nahun Zavaleta DO [address] [place] [address] Hematology/Oncology 03/18/22 Bank Advisor Relationship Specialty Start Date End Date Akira Pierre MD [address] [place] [address] PCP - General Internal Medicine 12/22/11 [place] [address] [place], [place] [address] Physician Radiation Oncology 09/26/21 Gladis Byrd MD [address] [place] [address] Physician Radiation Oncology 11/01/21 Nahun Zavaleta DO [address] [place] [address] Hematology/Oncology 03/18/22 Bank Advisor Relationship Specialty Start Date End Date Akira Pierre MD [address] [place] [address] PCP - General Internal Medicine 12/22/11 [place] [address] [place], [place] 3408236 Physician Radiation Oncology 09/26/21 Gladis Byrd MD [address] [place] [address] Physician Radiation Oncology 11/01/21 Nahun Zavaleta DO [address] [place] [address] Hematology/Oncology 03/18/22 Bank Advisor Relationship Specialty Start Date End Date Akira Pierre MD [address] [place] [address] PCP - General Internal Medicine 12/22/11 [place] [address] [place] [address] Physician Radiation Oncology 09/26/21 Gladis Byrd MD [address] [place] [address] Physician Radiation Oncology 11/01/21 Nahun Zavaleta DO [address] [place] [address] Hematology/Oncology 03/18/22 Bank Advisor Relationship Specialty Start Date End Date Akira Pierre MD [address] [place], [place] 21[address]91 PCP - General Internal Medicine 12/22/11 [place] [address] [place] [address] Physician Radiation Oncology 09/26/21 Bank Advisor Relationship Specialty Start Date End Date Akira Pierre MD [address] [place], [place] 39[address]71 PCP - General Internal Medicine 12/22/11 [place] [address] [place] [address] Physician Radiation Oncology 09/26/21 Bank Advisor Relationship Specialty Start Date End Date Akira Pierre MD [address] [place], [place] 451011 PCP - General Internal Medicine 12/22/11 [place] [address] [place] [address] Physician Radiation Oncology 09/26/21 Gladis Byrd MD [address] [place] [address] Physician Radiation Oncology 11/01/21 Nahun Zavaleta DO [address] [place] [address] Hematology/Oncology 03/18/22 Bank Advisor Relationship Specialty Start Date End Date Akira Pierre MD [address] [place] [address] PCP - General Internal Medicine 12/22/11 [place] [address] [place] [address] Physician Radiation Oncology 09/26/21 Gladis Byrd MD [address] [place] [address] Physician Radiation Oncology 11/01/21 Nahun Zavaleta DO [address] [place] [address] Hematology/Oncology 03/18/22 Celeste Salcedo, INFORMATICS NURSE.ACTUARIAL ASSOCIATE [address] [place] [address] Digital Archivist Internal Medicine 02/15/24 Kimber Camp, INFORMATICS NURSE.RESIDENTIAL SALES REPRESENTATIVE [address] [place] [address] Digital Archivist Internal Medicine 02/15/24 Bank Advisor Relationship Specialty Start Date End Date Akira Pierre MD [address] [place] [address] PCP - General Internal Medicine 12/22/11 [place] [address] [place] [address] Physician Radiation Oncology 09/26/21 Gladis Byrd MD [address] [place] [address] Physician Radiation Oncology 11/01/21 Nahun Zavaleta DO [address] [place] [address] Hematology/Oncology 03/18/22 Celeste Salcedo, INFORMATICS NURSE.ACTUARIAL ASSOCIATE [address] [facility] [place] [address] Digital Archivist Internal Medicine 02/15/24 Kimber Camp APRN.RESIDENTIAL SALES REPRESENTATIVE [address] [facility] [place] [address] Digital Archivist Internal Medicine 02/15/24 Bank Advisor Relationship Specialty Start Date End Date Akira Pierre MD [address] [facility] [place] [address] PCP - General Internal Medicine 12/22/11 [place] [address] [place], [place] 1492436 Physician Radiation Oncology 09/26/21 Gladis Byrd MD [address] [place] [address] Physician Radiation Oncology 11/01/21 Nahun Zavaleta DO [address] [place] [address] Hematology/Oncology 03/18/22 Celeste Salcedo, INFORMATICS NURSE.ACTUARIAL ASSOCIATE [address] [facility] [place] [address] Digital Archivist Internal Medicine 02/15/24 Kimber Camp APRN.RESIDENTIAL SALES REPRESENTATIVE [address] [place] [address] [facility] Internal Medicine 02/15/24 Bank Advisor Relationship Specialty Start Date End Date Akira Pierre MD [address] [place] [address] PCP - General Internal Medicine 12/22/11 [place] [address] [place] [address] Physician Radiation Oncology 09/26/21 Gladis Byrd MD [address] [place] [address] Physician Radiation Oncology 11/01/21 Nahun Zavaleta DO [address] [place] [address] Hematology/Oncology 03/18/22 Celeste Salcedo APRN.ACTUARIAL ASSOCIATE [address] [place] [address] [facility] Internal Medicine 02/15/24 Kimber Camp INFORMATICS NURSE.RESIDENTIAL SALES REPRESENTATIVE [address] [place] [address] [facility] Internal Medicine 02/15/24 Bank Advisor Relationship Specialty Start Date End Date Akira Pierre MD [address] [place] [address] PCP - General Internal Medicine 12/22/11 [place] [address] [place] [address] Physician Radiation Oncology 09/26/21 Gladis Byrd MD [address] [place] [address] Physician Radiation Oncology 11/01/21 Nahun Zavaleta DO [address] [place] [address] Hematology/Oncology 03/18/22 Celeste Salcedo APRN.ACTUARIAL ASSOCIATE [address] [place] [address] Digital Archivist Internal Medicine 02/15/24 Kimber Camp APRN.RESIDENTIAL SALES REPRESENTATIVE [address] [place] [address] Digital Archivist Internal Medicine 02/15/24 Bank Advisor Relationship Specialty Start Date End Date Akira Pierre MD [address] [place] [address] PCP - General Internal Medicine 12/22/11 [place] [address] [place] [address] Physician Radiation Oncology 09/26/21 Gladis Byrd MD [address] [place] [address] Physician Radiation Oncology 11/01/21 Nahun Zavaleta DO [address] [place] [address] Hematology/Oncology 03/18/22 Celeste Salcedo, INFORMATICS NURSE.ACTUARIAL ASSOCIATE [address] [facility] [place] [address] Digital Archivist Internal Medicine 02/15/24 Kimber Camp INFORMATICS NURSE.RESIDENTIAL SALES REPRESENTATIVE [address] [facility] [place] [address] Digital Archivist Internal Medicine 02/15/24 Bank Advisor Relationship Specialty Start Date End Date Akira Pierre MD [address] [facility] [place] [address] PCP - General Internal Medicine 12/22/11 [place] [address] [place] [address] Physician Radiation Oncology 09/26/21 Gladis Byrd MD [address] [address] Physician Radiation Oncology 11/01/21 Nahun Zavaleta DO [address] [facility] [place] [address] Hematology/Oncology 03/18/22 Celeste Salcedo, INFORMATICS NURSE.ACTUARIAL ASSOCIATE [address] [facility] [place] [address] Digital Archivist Internal Medicine 02/15/24 Kimber Camp INFORMATICS NURSE.RESIDENTIAL SALES REPRESENTATIVE [address] [facility] [place] [address] Digital Archivist Internal Medicine 02/15/24 Bank Advisor Relationship Specialty Start Date End Date Akira Pierre MD [address] [place] [address] PCP - General Internal Medicine 12/22/11 [place] [address] [place], [place] 2997236 Physician Radiation Oncology 09/26/21 Gladis Byrd MD [address] [place] [address] Physician Radiation Oncology 11/01/21 Nahun Zavaleta DO [address] [place] [address] Hematology/Oncology 03/18/22 Celeste Salcedo, INFORMATICS NURSE.ACTUARIAL ASSOCIATE [address] [place] [address] Digital Archivist Internal Medicine 02/15/24 Kimber Camp INFORMATICS NURSE.RESIDENTIAL SALES REPRESENTATIVE [address] [place] [address] Digital Archivist Internal Medicine 05/31/24 Bank Advisor Relationship Specialty Start Date End Date Akira Pierre MD [address] [place] [address] PCP - General Internal Medicine 12/22/11 [place] [address] [place], [place] 36[address] Physician Radiation Oncology 09/26/21 Gladis Byrd MD [address] [place] [address] Physician Radiation Oncology 11/01/21 Nahun Zavaleta DO [address] [place], [place] [address] Hematology/Oncology 03/18/22 Celeste Salcedo, INFORMATICS NURSE.ACTUARIAL ASSOCIATE [address] [place], [place] [address] [facility] Internal Medicine 02/15/24 Kimber Camp INFORMATICS NURSE.RESIDENTIAL SALES REPRESENTATIVE [address] [place], [place] [address] [facility] Internal Medicine 05/31/24 Team Status: Inactive [...] BE BASED ON THE PRIMARY CLINICAL RECORDS. [employer] provides no warranty or guarantee of the accuracy or completeness of information in this document.
[2024-09-30] MEDS: Lactated Ringers 1,000 ML 15 ML IV (06:09)
--- NOTE | 2024-09-30 06:30 | EGD_PTH ---
[id number] LOC: EN U#:[id number] AGE/SX: 59/F ROOM: RE09/30/[address]: Dr. Manuelito Ricks DO : 1965 BED: DIS: 09/30/2024 SPEC #: [id number] RECD: 09/30/24 10:06 STATUS: SOLITARIO JESENIA #: [id number] LEROY: 09/30/24 06:[address]: Manuelito Ricks DEPT: SURGICAL PATHOLOGY RECD BY: Solis Beckman ENTERED: 09/30/24 11:22 SP TYPE: EGD BIOPSY OT DR: Dr. Lu Riggins MD Tissues: A - Duodenum, NOS B - Gastric mucous membrane C - Gastric mucous membrane D - Esophagus, NOS E - Ileum, NOS F - Sigmoid colon biopsy Procedures: Immunohistochemical Stains Surgery Specimen Level IV HEADER OPERATION: Colonoscopy with cautery, EGD with biopsy PRE-OP DIAGNOSIS: Bloating, GERD, constipation, epigastric fullness TISSUE SUBMITTED: A- Duodenum biopsy, B- Gastric antrum biopsy, C- Gastric body biopsy,D- Distal esophagus biopsy, E- Terminal ileum biopsy, F- Sigmoid colon biopsy MICROSCOPIC DIAGNOSIS A. Duodenum, biopsy: - Normal villous morphology with no specific pathologic change. - Negative for increased intraepithelial lymphocytes. B. Gastric antrum, biopsy: - Oxyntic mucosa with mild chronic inflammation. - IHC negative for H.pylori organisms. C. Gastric body, biopsy: - Oxyntic mucosa with slight chronic inflammation. - IHC negative for H.pylori organisms. D. 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 - Negative for dysplasia. Note: The diagnosis depends on the location of the biopsy and the extent of the mucosal irregularity. If the biopsy originates from the tubular esophagus and the mucosal irregularity extends at least 1 cm above the top of the gastric folds, this represents Sagastume mucosa. If the biopsy originates from the gastric cardia and/or the mucosal irregularity is less than 1 cm in extent, this represents intestinal metaplasia. E. Terminal ileum, biopsy: - No specific pathologic change. F. Sigmoid colon, biopsy: - Focal hyperplastic polyp. - The histologic features of microscopic colitis are not demonstrated. MICROSCOPIC DESCRIPTION Slides are reviewed. All matched controls reacted appropriately. These tests were developed and their performance characteristics determined by [facility]. They may not have been cleared or approved by the U.S. Food and Drug Administration. The FDA has determined that such clearance or approval is not necessary. The above immunohistochemical/dualISH markers are viewed by the Pathologist. GROSS DESCRIPTION A. Received in fixative is one container labeled with the patient's name and designated Duodenum biopsy. The specimen consists of two irregular fragments of light box soft tissue that in aggregate measure 0.2 and 0.4 cm. The specimen is totally submitted in one cassette. B. Received in fixative is one container labeled with the patient's name and designated Gastric antrum biopsy. The specimen consists of two irregular fragments of light box soft tissue that in aggregate measure 0.3 to 0.5 cm. The specimen is totally submitted in one cassette. C. Received in fixative is one container labeled with the patient's name and designated Gastric body biopsy. The specimen consists of three irregular fragments of light box soft tissue that in aggregate measure 0.1 to 0.4 cm. The specimen is totally submitted in one cassette. D. Received in fixative is one container labeled with the patient's name and designated Distal esophagus biopsy. The specimen consists of three irregular fragments of light box soft tissue that in aggregate measure 0.1 to 0.6 cm. The specimen is totally submitted in one cassette. E. Received in fixative is one container labeled with the patient's name and designated Terminal ileum biopsy. The specimen consists of three irregular fragments of light box soft tissue that in aggregate measure 0.1 to 0.3 cm. The specimen is totally submitted in one cassette. F. Received in fixative is one container labeled with the patient's name and designated Sigmoid colon biopsy. The specimen consists of three irregular fragments of light box soft tissue that in aggregate measure 0.2 to 0.5 cm. The specimen is totally submitted in one cassette. [place] 09/30/2024 CPT:13078r5,76094l4
--- NOTE | 2024-09-30 06:30 | EGD_PTH ---
[id number] LOC: EN U#:[id number] AGE/SX: 59/F ROOM: RE09/30/[address]: Dr. Manuelito Ricks DO : 1965 BED: DIS: 09/30/2024 SPEC #: [id number] RECD: 09/30/24 10:06 STATUS: SOLITARIO JESENIA #: [id number] LEROY: 09/30/24 06:[address]: Manuelito Ricks DEPT: SURGICAL PATHOLOGY RECD BY: Solis Beckman ENTERED: 09/30/24 11:22 SP TYPE: EGD BIOPSY OT DR: Dr. Lu Riggins MD Tissues: A - Duodenum, NOS B - Gastric mucous membrane C - Gastric mucous membrane D - Esophagus, NOS E - Ileum, NOS F - Sigmoid colon biopsy Procedures: Immunohistochemical Stains Surgery Specimen Level IV HEADER OPERATION: Colonoscopy with cautery, EGD with biopsy PRE-OP DIAGNOSIS: Bloating, GERD, constipation, epigastric fullness TISSUE SUBMITTED: A- Duodenum biopsy, B- Gastric antrum biopsy, C- Gastric body biopsy,D- Distal esophagus biopsy, E- Terminal ileum biopsy, F- Sigmoid colon biopsy MICROSCOPIC DIAGNOSIS A. Duodenum, biopsy: - Normal villous morphology with no specific pathologic change. - Negative for increased intraepithelial lymphocytes. B. Gastric antrum, biopsy: - Oxyntic mucosa with mild chronic inflammation. - IHC negative for H.pylori organisms. C. Gastric body, biopsy: - Oxyntic mucosa with slight chronic inflammation. - IHC negative for H.pylori organisms. D. 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 - Negative for dysplasia. Note: The diagnosis depends on the location of the biopsy and the extent of the mucosal irregularity. If the biopsy originates from the tubular esophagus and the mucosal irregularity extends at least 1 cm above the top of the gastric folds, this represents Sagastume mucosa. If the biopsy originates from the gastric cardia and/or the mucosal irregularity is less than 1 cm in extent, this represents intestinal metaplasia. E. Terminal ileum, biopsy: - No specific pathologic change. F. Sigmoid colon, biopsy: - Focal hyperplastic polyp. - The histologic features of microscopic colitis are not demonstrated. MICROSCOPIC DESCRIPTION Slides are reviewed. All matched controls reacted appropriately. These tests were developed and their performance characteristics determined by [facility]. They may not have been cleared or approved by the U.S. Food and Drug Administration. The FDA has determined that such clearance or approval is not necessary. The above immunohistochemical/dualISH markers are viewed by the Pathologist. GROSS DESCRIPTION A. Received in fixative is one container labeled with the patient's name and designated Duodenum biopsy. The specimen consists of two irregular fragments of light box soft tissue that in aggregate measure 0.2 and 0.4 cm. The specimen is totally submitted in one cassette. B. Received in fixative is one container labeled with the patient's name and designated Gastric antrum biopsy. The specimen consists of two irregular fragments of light box soft tissue that in aggregate measure 0.3 to 0.5 cm. The specimen is totally submitted in one cassette. C. Received in fixative is one container labeled with the patient's name and designated Gastric body biopsy. The specimen consists of three irregular fragments of light box soft tissue that in aggregate measure 0.1 to 0.4 cm. The specimen is totally submitted in one cassette. D. Received in fixative is one container labeled with the patient's name and designated Distal esophagus biopsy. The specimen consists of three irregular fragments of light box soft tissue that in aggregate measure 0.1 to 0.6 cm. The specimen is totally submitted in one cassette. E. Received in fixative is one container labeled with the patient's name and designated Terminal ileum biopsy. The specimen consists of three irregular fragments of light box soft tissue that in aggregate measure 0.1 to 0.3 cm. The specimen is totally submitted in one cassette. F. Received in fixative is one container labeled with the patient's name and designated Sigmoid colon biopsy. The specimen consists of three irregular fragments of light box soft tissue that in aggregate measure 0.2 to 0.5 cm. The specimen is totally submitted in one cassette. [place] 09/30/2024 CPT:01471c4,08859h6
--- NOTE | 2024-09-30 06:31 | PRE.ANES_ITS ---
ASA Classification* ASA Classification ASA Classification: 2 Assessment & Plan Anesthesia* Anesthesia Assessment Anesthesia Assessment: Discussed sedation and/or anesthesia options, risks, benefits, and alternatives with patient/parents/legal guardian/POA. Questions invited. The patient/parents/legal guardian/POA seems to understand and agrees to proceed with anesthesia plan. Reviewed the physical assessment, medical history, allergy history and patient home medications list prior to surgery/procedure/anesthetic and documented any changes. Performed airway and anesthesia risk assessments. Anesthesia Type Anesthesia Type: MAC History Source History Obtained from:: Patient and Chart Anesthesia Focused Assessment* Temperature: 97.3 F Pulse Rate: 77 Blood Pressure: 135/79 Respiratory Rate: 18 Pulse Ox: 96 Oxygen Delivery Method: Room Air Airway Assessment Mouth opens: >3 cm Mallampati Score: II Teeth Condition: Partial (Top Partial is out.) Neck Range of motion (ROM): Full ROM Labs Anesthesia Preop lab: CBC WBC 17.5 K/mm3 (4.4-11.0) H 05/06/22 13:15 3 RBC 3.78 M/mm3 (4.2-5.4) L 05/06/22 13:15 05/06/22 Hgb 11.2 g/dL (12.0-15.0) L 05/06/22 13:15 3 Hct 35.0 % (37-47) L 05/06/22 13:15 05/06/22 Plt Count 369 K/mm3 (150-450) 05/06/22 13:15 05/06/22 CHEMISTRY Potassium 3.6 mmol/L (3.5-5.1) 05/06/22 13:15 05/06/22 Sodium 142 mmol/L (136-145) 05/06/22 13:15 05/06/22 BUN 19 mg/dL (7-18) H 05/06/22 13:15 05/06/22 Creatinine 0.90 mg/dL (0.55-1.02) 05/06/22 13:15 05/06/22 Glucose 129 mg/dL (74-106) H 05/06/22 13:15 05/06/22 COAG Pre-Assessment Diagnosis/Proposed Procedure Planned Operative Procedure(s): colonoscopy, egd Anesthesia History Anesthesia History - merchandiser seasonal: Anesthesia History - merchandiser seasonal Hx Hospitalization No 09/27/24 15:20 Any Problems With Anesthesia No 09/27/24 15:20 Cholinesterase deficiency No 09/27/24 15:20 You/Your Family Experience No 09/27/24 15:20 fever (hyperthermia) with Relationship Recent Exposure to Contagious No 09/30/24 05:59 Disease Does patient have nerve No 09/27/24 15:20 stimulator Patient instructed to have device shut off --Does patient have Pacemaker No 09/30/24 05:59 or ICD? When Was Last Pacemaker Check QUESTION #4 FULL TEXT: You/Your Family Experience fever (hyperthermia) with Anesthesia Last Oral Intake Last Oral intake: Last Oral Intake NPO since :09/30/24 05:59 Meds taken in AM with sips of No 09/30/24 05:59 water? Meds patient instructed to take am of surgery Any additional information?: Yes NPO since: : (Patient finished prep at 1:30 AM.) Meds taken in AM with sips of water?: No PONV PONV - merchandiser seasonal: PONV - merchandiser seasonal Female Yes 09/27/24 15:20 HX of Motion Sickness No 09/27/24 15:20 HX of N/V After Surgery No 09/27/24 15:20 Non-Smoker Yes 09/27/24 15:20 Duration of Surgery greater No 09/27/24 15:20 than 60 minutes Number of Risk Factors 2 09/27/24 15:20 PONV Score Moderate Risk 09/27/24 15:20 Height & Weight Height & Weight: Anesthesia: Height & Weight Height 5 ft 6 in 09/30/24 05:59 Weight: 97 kg 09/30/24 05:59 Body Mass Index (BMI) 34.4 09/30/24 05:59 Respiratory Assessment Respiratory Assessment - merchandiser seasonal: Respiratory Tract Infection Hx - merchandiser seasonal Hx Respiratory Tract Infection No 09/27/24 15:20 STOP Sleep Apnea STOP Sleep Apnea - merchandiser seasonal: STOP Sleep Apnea - merchandiser seasonal Hx Hypertension No 09/27/24 15:20 Hx Sleep Apnea No 09/27/24 15:20 CPAP BIPAP Do you snore loudly (louder Yes 09/27/24 15:20 than talking or can be heard Do you often feel tired/ No 09/27/24 15:20 fatigued/ sleepy during daytime? Has anyone observed you stop No 09/27/24 15:20 breathing during sleep? STOP Results Negative 09/27/24 15:20 QUESTION #5 FULL TEXT : Do you snore loudly (louder than talking or can be heard through closed doors)? 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 Specify any problems Hx of Preganancy in last 3 No 09/27/24 15:20 Months Nurse Filling Out Transfusion [email or web address] 09/27/24 15:20 & Questions: Date: 09/27/24 09/27/24 15:20 Time: 15:09/27/24 15:20 Patient unable to answer at this time (ie. confused, unrespo /Reproduction History /Reproductive History - merchandiser seasonal: /Reproductive Hx- merchandiser seasonal Hx Now No 09/27/24 15:20 Gestational Age (in weeks): EDC: Hx Hx Para Hx Section SAB No 09/27/24 15:20 Active Medications Active Medications: Current Medications Generic Name Dose Route Start Last Admin Trade Name Freq PRN Reason Stop Dose Admin Lactated Ringer's 1,000 mls @ 15 mls/hr 09/30/24 06:00 09/30/24 06:09 IV 15 mls/hr .Q48H KERI Administration PFSH Medical History Wears partial dentures Wears glasses Depression Former smoker Restless legs Arthritis GERD (gastroesophageal reflux disease) Shingles Adrenal nodule Nontoxic multinodular goiter Thyroid nodule Breast cancer Home Medications ?Medication ?Instructions ?Recorded ?Last Taken ?Type exemestane 25 mg tablet (Aromasin) 25 mg PO DAILY 04/1009/29/24 History fluticasone propionate 50 2 spray intranasal DAILY 09/29/24 History mcg/actuation nasal spray,suspension meloxicam 15 mg tablet 15 mg PO DAILY 05/06/2209/07 History omeprazole 40 mg capsule,delayed 40 mg PO QDAY #90 cap s 08/10/24 09/29/24 Rx release venlafaxine 150 mg 150 mg PO QAM 08/11/2409/29 History capsule,extended release 24 hr tenapanor 50 mg tablet (Ibsrela) 50 mg PO BID #60 tabs 09/12/24 09/26/24 Rx Allergy/AdvReac Type Severity Reaction Status Date / Time zoledronic acid AdvReac Mild Other Verified 09/30/24 05:57 Family History Mother Asthma Arthritis Father Cancer Grandmother Arthritis Cancer Breast cancer Grandfather Heart disease Surgical History H/O lumpectomy History of repair of hiatal hernia H/O tubal ligation Social History Smoking Status: Former smoker alcohol intake: current alcohol intake frequency: holidays/special occasions only Alcohol type: wine Review of Systems (Anesthesia) ROS Narrative System reviewed and no additional complaints, except as documented.
--- NOTE | 2024-09-30 06:31 | PRE.ANES_ITS ---
ASA Classification* ASA Classification ASA Classification: 2 Assessment & Plan Anesthesia* Anesthesia Assessment Anesthesia Assessment: Discussed sedation and/or anesthesia options, risks, benefits, and alternatives with patient/parents/legal guardian/POA. Questions invited. The patient/parents/legal guardian/POA seems to understand and agrees to proceed with anesthesia plan. Reviewed the physical assessment, medical history, allergy history and patient home medications list prior to surgery/procedure/anesthetic and documented any changes. Performed airway and anesthesia risk assessments. Anesthesia Type Anesthesia Type: MAC History Source History Obtained from:: Patient and Chart Anesthesia Focused Assessment* Temperature: 97.3 F Pulse Rate: 77 Blood Pressure: 135/79 Respiratory Rate: 18 Pulse Ox: 96 Oxygen Delivery Method: Room Air Airway Assessment Mouth opens: >3 cm Mallampati Score: II Teeth Condition: Partial (Top Partial is out.) Neck Range of motion (ROM): Full ROM Labs Anesthesia Preop lab: CBC WBC 17.5 K/mm3 (4.4-11.0) H 05/06/22 13:15 3 RBC 3.78 M/mm3 (4.2-5.4) L 05/06/22 13:15 05/06/22 Hgb 11.2 g/dL (12.0-15.0) L 05/06/22 13:15 3 Hct 35.0 % (37-47) L 05/06/22 13:15 05/06/22 Plt Count 369 K/mm3 (150-450) 05/06/22 13:15 05/06/22 CHEMISTRY Potassium 3.6 mmol/L (3.5-5.1) 05/06/22 13:15 05/06/22 Sodium 142 mmol/L (136-145) 05/06/22 13:15 05/06/22 BUN 19 mg/dL (7-18) H 05/06/22 13:15 05/06/22 Creatinine 0.90 mg/dL (0.55-1.02) 05/06/22 13:15 05/06/22 Glucose 129 mg/dL (74-106) H 05/06/22 13:15 05/06/22 COAG Pre-Assessment Diagnosis/Proposed Procedure Planned Operative Procedure(s): colonoscopy, egd Anesthesia History 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 When Was Last Pacemaker Check QUESTION #4 FULL TEXT: You/Your Family Experience fever (hyperthermia) with Anesthesia Last Oral Intake Last Oral intake: Last Oral Intake NPO since :09/30/24 05:59 Meds taken in AM with sips of No 09/30/24 05:59 water? Meds patient instructed to take am of surgery Any additional information?: Yes NPO since: : (Patient finished prep at 1:30 AM.) Meds taken in AM with sips of water?: No PONV PONV - logistics loss prevention manager: PONV - logistics loss prevention manager Female Yes 09/27/24 15:20 HX of Motion Sickness No 09/27/24 15:20 HX of N/V After Surgery No 09/27/24 15:20 Non-Smoker Yes 09/27/24 15:20 Duration of Surgery greater No 09/27/24 15:20 than 60 minutes Number of Risk Factors 2 09/27/24 15:20 PONV Score Moderate Risk 09/27/24 15:20 Height & Weight Height & Weight: Anesthesia: Height & Weight Height 5 ft 6 in 09/30/24 05:59 Weight: 97 kg 09/30/24 05:59 Body Mass Index (BMI) 34.4 09/30/24 05:59 Respiratory Assessment Respiratory Assessment - logistics loss prevention manager: Respiratory Tract Infection Hx - logistics loss prevention manager Hx Respiratory Tract Infection No 09/27/24 15:20 STOP Sleep Apnea STOP Sleep Apnea - logistics loss prevention manager: STOP Sleep Apnea - logistics loss prevention manager Hx Hypertension No 09/27/24 15:20 Hx Sleep Apnea No 09/27/24 15:20 CPAP BIPAP Do you snore loudly (louder Yes 09/27/24 15:20 than talking or can be heard Do you often feel tired/ No 09/27/24 15:20 fatigued/ sleepy during daytime? Has anyone observed you stop No 09/27/24 15:20 breathing during sleep? STOP Results Negative 09/27/24 15:20 QUESTION #5 FULL TEXT : Do you snore loudly (louder than talking or can be heard through closed doors)? 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 Specify any problems Hx of Preganancy in last 3 No 09/27/24 15:20 Months Nurse Filling Out Transfusion [email or web address] 09/27/24 15:20 & Questions: Date: 09/27/24 09/27/24 15:20 Time: 15:09/27/24 15:20 Patient unable to answer at this time (ie. confused, unrespo /Reproduction History /Reproductive History - logistics loss prevention manager: /Reproductive Hx- logistics loss prevention manager Hx Now No 09/27/24 15:20 Gestational Age (in weeks): EDC: Hx Hx Para Hx Section SAB No 09/27/24 15:20 Active Medications Active Medications: Current Medications Generic Name Dose Route Start Last Admin Trade Name Freq PRN Reason Stop Dose Admin Lactated Ringer's 1,000 mls @ 15 mls/hr 09/30/24 06:00 09/30/24 06:09 IV 15 mls/hr .Q48H KERI Administration PFSH Medical History Wears partial dentures Wears glasses Depression Former smoker Restless legs Arthritis GERD (gastroesophageal reflux disease) Shingles Adrenal nodule Nontoxic multinodular goiter Thyroid nodule Breast cancer Home Medications ?Medication ?Instructions ?Recorded ?Last Taken ?Type exemestane 25 mg tablet (Aromasin) 25 mg PO DAILY 04/1009/29/24 History fluticasone propionate 50 2 spray intranasal DAILY 09/29/24 History mcg/actuation nasal spray,suspension meloxicam 15 mg tablet 15 mg PO DAILY 05/06/2209/07 History omeprazole 40 mg capsule,delayed 40 mg PO QDAY #90 cap s 08/10/24 09/29/24 Rx release venlafaxine 150 mg 150 mg PO QAM 08/11/2409/29 History capsule,extended release 24 hr tenapanor 50 mg tablet (Ibsrela) 50 mg PO BID #60 tabs 09/12/24 09/26/24 Rx Allergy/AdvReac Type Severity Reaction Status Date / Time zoledronic acid AdvReac Mild Other Verified 09/30/24 05:57 Family History Mother Asthma Arthritis Father Cancer Grandmother Arthritis Cancer Breast cancer Grandfather Heart disease Surgical History H/O lumpectomy History of repair of hiatal hernia H/O tubal ligation Social History Smoking Status: Former smoker alcohol intake: current alcohol intake frequency: holidays/special occasions only Alcohol type: wine Review of Systems (Anesthesia) ROS Narrative System reviewed and no additional complaints, except as documented.
--- NOTE | 2024-09-30 06:38 | PCM.HP.STD ---
HPI - General General Date of Admission: 09/30/24 Date of Service: 09/30/24 Chief Complaint: GERD and constipation HPI Narrative REBECA COLES, is a 59 F who presents with the Chief Complaint: GERD and constipation - GERD for many years and taking Omeprazole 20mg daily, this controls symptoms for the most part. At one time she was on PPI BID. - Life long constipation, reports I do not have time to go. Fearful of laxatives because she may become dependent. - Feels bloated and full in the upper abdomen. She has had 2 colonoscopies in the past. - Denies any family h/o colon CA. - Last colonoscopy 01/31/2020 - repeat in 5 years - Denies any bleeding or unexplained weight loss. - Reports her water intake is bad. Does not like meat, prefers fruits and vegetables, tries to get protein from like eggs. - She eats a pop-tart every morning for breakfast. - She does really enjoy eating ice cream but this causes bloating. - She has a bowel movement every 3-4 days, hard marble stools. - TSH level is normal. - Denies any bleeding. - She is taking Meloxicam daily for the past 10 years, she has never had an EGD. - In the past month she had an episode of bile reflux [facility] Medical History (Updated 09/30/24 @ 06:[address] Billings Friend, DO) Wears partial dentures Wears glasses Depression Former smoker Restless legs Arthritis GERD (gastroesophageal reflux disease) Shingles Adrenal nodule Nontoxic multinodular goiter Thyroid nodule Breast cancer Home Medications ?Medication ?Instructions ?Recorded ?Last Taken ?Type exemestane 25 mg tablet (Aromasin) 25 mg PO DAILY 05/06/22 09/29/24 History fluticasone propionate 50 2 spray intranasal DAILY 05/06/22 09/29/24 History mcg/actuation nasal spray,suspension meloxicam 15 mg tablet 15 mg PO DAILY 05/06/22 09/29/24 History omeprazole 40 mg capsule,delayed 40 mg PO QDAY #90 caps 08/10/24 09/29/24 Rx release venlafaxine 150 mg 150 mg PO QAM 08/11/24 09/29/24 History capsule,extended release 24 hr tenapanor 50 mg tablet (Ibsrela) 50 mg PO BID #60 tabs 09/12/24 09/26/24 Rx Allergy/AdvReac Type Severity Reaction Status Date / Time zoledronic acid AdvReac Mild Other Verified 09/30/24 05:57 Family History Mother Asthma Arthritis Father Cancer Grandmother Arthritis Cancer Breast cancer Grandfather Heart disease Surgical History H/O lumpectomy History of repair of hiatal hernia H/O tubal ligation Social History Smoking Status: Former smoker alcohol intake: current alcohol intake frequency: holidays/special occasions only Alcohol type: wine ROS Constitutional Constitutional: Denies fatigue, fever(s), poor appetite, weight gain or weight loss Gastrointestinal Gastrointestinal: Denies belching, bloating, change in bowel habits, change in stool character, chewing difficulty, coffee ground emesis, constipation, cramping, diarrhea, dyspepsia, dysphagia, early satiety, excessive flatus, fecal incontinence, heartburn, hematemesis, hematochezia, hemorrhoids, loose stools, melena, nausea, odynophagia, rectal bleeding, tenesmus, vomiting or weight changes Vital Signs Vital Signs Vital Signs: 09/30/24 05:59 09/30/24 05:59 09/30/24 06:36 Temperature 97.3 F L 97.3 F L Temperature Source Temporal Pulse Rate 77 77 Respiratory Rate 18 18 Respiratory Pattern Normal Blood Pressure 135/79 H 135/79 H Blood Pressure Mean 97 Blood Pressure Source Monitor Blood Pressure Position Semi-Fowlers Blood Pressure Location Left Arm Pulse Ox 96 96 Oxygen Delivery Method Room Air Room Air Weight Weight: 213 lb 13.574 oz Body Mass Index (BMI) 34.4 Physical Exam Const alert, oriented x3, no apparent distress and healthy appearing General Appearance: cooperative GI normal to inspection, nondistended, normoactive bowel sounds, soft to palpation, non-tender and non-distended Percussion: normal to percussion Rectal Exam: deferred Assessment & Plan Assessment/Plan (1) Bloating: (2) GERD (gastroesophageal reflux disease): (3) Constipation: PLAN: Assessment and Plan Assessment and Plan (1) Bloating: Status: Acute (2) Epigastric fullness: Status: Acute Orders: Orders Abdomen Limited Today R14.0 - Abdominal distension (gaseous), R19.06 - Epigastric swelling, mass or lump Medications: New omeprazole 30 minutes before first meal 40 mg PO QDAY 90 caps 1RF Discontinued omeprazole Discontinued Reason: Order Changed 20 mg PO DAILY #14 0RF Plan 59y/o female presents for initial consultation with a history of chronic GERD and constipation. She denies any unexplained weight loss or bleeding. I have increased Omeprazole to 40mg once daily and she will schedule EGD. We have reviewed potential s/e of non-steroidal medications. In terms of constipation, she will trial Magnesium citrate gel caps 1-2 daily. We have discussed the importance of a balanced diet with increased water and fiber intake. She is due for a routine screening colonoscopy as well and will schedule. Note: [employer] speech recognition heel slicker software was used to create portions of this document. Sound-alike and misspelled words, as well as other heel slicker errors may be contained in the documentation. Patient Instructions: ABD US - [phone] to schedule Magnesium Citrate gel caps 250mg take one every morning and a second dose in the evening if no bowel movement Linzess 290mcg once daily 30 minutes before first meal (samples), may use in place of Magnesium Citrate EGD/Colon - prep of patients choice - may provide sample Increase Omeprazole to 40mg once daily - Hospital pharmacy Increase water intake - goal of 64 ounces daily FiberOne cereal trail mix or FiberCon 2 tablets once daily with 8 ounces of water
--- NOTE | 2024-09-30 07:23 | OP.EGD_ITS ---
Patient Name: Susan Wilson Procedure Date: 09/30/2024 6:38 AM Date of : 1965 Age: 59 Procedure: Upper GI endoscopy Indications: Epigastric abdominal pain, Functional Dyspepsia, Suspected esophageal reflux Providers: Manuelito Ricks DO Referring MD: Lu Riggins Medicines: Monitored Anesthesia Care Patient Profile: This is a 59 year old female. Refer to note in patient chart for documentation of history and physical. Patient has symptoms of chronic abdominal distention, acute epigastric abdominal pain, chronic dyspepsia, acute heartburn and chronic nausea. Complications: No immediate complications. Procedure: Pre-Anesthesia Assessment: - Prior to the procedure, a History and Physical was performed, and patient medications and allergies were reviewed. The patient is competent. The risks and benefits of the procedure and the sedation options and risks were discussed with the patient. All questions were answered and informed consent was obtained. Patient identification and proposed procedure were verified by the physician in the pre-procedure area. Mental Status Examination: alert and oriented. Airway Examination: normal oropharyngeal airway and neck mobility. Respiratory Examination: clear to auscultation. CV Examination: normal. Prophylactic Antibiotics: The patient does not require prophylactic antibiotics. Prior Anticoagulants: The patient has taken no anticoagulant or antiplatelet agents except for NSAID medication. ASA Grade Assessment: II - A patient with mild systemic disease. After reviewing the risks and benefits, the patient was deemed in satisfactory condition to undergo the procedure. The anesthesia plan was to use monitored anesthesia care (MAC). Immediately prior to administration of medications, the patient was re-assessed for adequacy to receive sedatives. The heart rate, respiratory rate, oxygen saturations, blood pressure, adequacy of pulmonary ventilation, and response to care were monitored throughout the procedure. The physical status of the patient was re-assessed after the procedure. After obtaining informed consent, the endoscope was passed under direct vision. Throughout the procedure, the patient's blood pressure, pulse, and oxygen saturations were monitored continuously. The colonoscope was introduced through the mouth, and advanced to the fourth part of the duodenum. Small bowel enteroscopy was deemed necessary. The upper GI endoscopy was accomplished without difficulty. The patient tolerated the procedure well. Scope In: 6:50:43 AM Scope Out: 6:56:35 AM Total Procedure Duration Time 0 hours 5 minutes 52 seconds Findings: Non-severe esophagitis with no bleeding was found. Biopsies were taken with a cold forceps for histology. Verification of patient identification for the specimen was done. Estimated blood loss was minimal. A small hiatal hernia was present. Patchy mildly erythematous mucosa without bleeding was found in the gastric body. Biopsies were taken with a cold forceps for histology. Verification of patient identification for the specimen was done. Estimated blood loss was minimal. Biopsies were taken with a cold forceps for Helicobacter pylori testing. Verification of patient identification for the specimen was done. Estimated blood loss was minimal. Patchy mildly erythematous mucosa without active bleeding and with no stigmata of bleeding was found in the entire duodenum. A small non-bleeding diverticulum was found in the gastric antrum. Impression: - Non-severe reflux esophagitis with no bleeding. Biopsied. - Small hiatal hernia. - Erythematous mucosa in the gastric body. Biopsied. - Erythematous duodenopathy. Recommendation: - Discharge patient to home. - Resume previous diet. - Continue present medications. - Await pathology results. Procedure Code(s): --- Professional --- 07472, Small intestinal endoscopy, enteroscopy beyond second portion of duodenum, not including ileum; with biopsy, single or multiple CPT copyright 2021 [employer]. All rights reserved. The codes documented in this report are preliminary and upon tufting supervisor review may be revised to meet current compliance requirements. Manuelito Ricks DO 09/30/2024 7:22:10 AM This report has been signed electronically. Number of Addenda: 0 Note Initiated On: 09/30/2024 6:38 AM
--- NOTE | 2024-09-30 07:23 | OP.EGD_ITS ---
Patient Name: Susan Wilson Procedure Date: 09/30/2024 6:38 AM Date of : 1965 Age: 59 Procedure: Upper GI endoscopy Indications: Epigastric abdominal pain, Functional Dyspepsia, Suspected esophageal reflux Providers: Manuelito Ricks DO Referring MD: Lu Riggins Medicines: Monitored Anesthesia Care Patient Profile: This is a 59 year old female. Refer to note in patient chart for documentation of history and physical. Patient has symptoms of chronic abdominal distention, acute epigastric abdominal pain, chronic dyspepsia, acute heartburn and chronic nausea. Complications: No immediate complications. Procedure: Pre-Anesthesia Assessment: - Prior to the procedure, a History and Physical was performed, and patient medications and allergies were reviewed. The patient is competent. The risks and benefits of the procedure and the sedation options and risks were discussed with the patient. All questions were answered and informed consent was obtained. Patient identification and proposed procedure were verified by the physician in the pre-procedure area. Mental Status Examination: alert and oriented. Airway Examination: normal oropharyngeal airway and neck mobility. Respiratory Examination: clear to auscultation. CV Examination: normal. Prophylactic Antibiotics: The patient does not require prophylactic antibiotics. Prior Anticoagulants: The patient has taken no anticoagulant or antiplatelet agents except for NSAID medication. ASA Grade Assessment: II - A patient with mild systemic disease. After reviewing the risks and benefits, the patient was deemed in satisfactory condition to undergo the procedure. The anesthesia plan was to use monitored anesthesia care (MAC). Immediately prior to administration of medications, the patient was re-assessed for adequacy to receive sedatives. The heart rate, respiratory rate, oxygen saturations, blood pressure, adequacy of pulmonary ventilation, and response to care were monitored throughout the procedure. The physical status of the patient was re-assessed after the procedure. After obtaining informed consent, the endoscope was passed under direct vision. Throughout the procedure, the patient's blood pressure, pulse, and oxygen saturations were monitored continuously. The colonoscope was introduced through the mouth, and advanced to the fourth part of the duodenum. Small bowel enteroscopy was deemed necessary. The upper GI endoscopy was accomplished without difficulty. The patient tolerated the procedure well. Scope In: 6:50:43 AM Scope Out: 6:56:35 AM Total Procedure Duration Time 0 hours 5 minutes 52 seconds Findings: Non-severe esophagitis with no bleeding was found. Biopsies were taken with a cold forceps for histology. Verification of patient identification for the specimen was done. Estimated blood loss was minimal. A small hiatal hernia was present. Patchy mildly erythematous mucosa without bleeding was found in the gastric body. Biopsies were taken with a cold forceps for histology. Verification of patient identification for the specimen was done. Estimated blood loss was minimal. Biopsies were taken with a cold forceps for Helicobacter pylori testing. Verification of patient identification for the specimen was done. Estimated blood loss was minimal. Patchy mildly erythematous mucosa without active bleeding and with no stigmata of bleeding was found in the entire duodenum. A small non-bleeding diverticulum was found in the gastric antrum. Impression: - Non-severe reflux esophagitis with no bleeding. Biopsied. - Small hiatal hernia. - Erythematous mucosa in the gastric body. Biopsied. - Erythematous duodenopathy. Recommendation: - Discharge patient to home. - Resume previous diet. - Continue present medications. - Await pathology results. Procedure Code(s): --- Professional --- 05616, Small intestinal endoscopy, enteroscopy beyond second portion of duodenum, not including ileum; with biopsy, single or multiple CPT copyright 2021 [employer]. All rights reserved. The codes documented in this report are preliminary and upon aerial crop duster review may be revised to meet current compliance requirements. Manuelito Ricks DO 09/30/2024 7:22:10 AM This report has been signed electronically. Number of Addenda: 0 Note Initiated On: 09/30/2024 6:38 AM
--- NOTE | 2024-09-30 07:23 | OP.CCLET_ITS ---
09/30/2024 Lu Riggins [address] [place] [address] Re : Upper GI endoscopy procedure for Susan Wilson Dear Dr. Riggins This procedure was performed on Monday, September 30, 2024. My impressions and recommendations are as follows: Impressions : - Non-severe reflux esophagitis with no bleeding. Biopsied. - Small hiatal hernia. - Erythematous mucosa in the gastric body. Biopsied. - Erythematous duodenopathy. Recommendations : - Discharge patient to home. - Resume previous diet. - Continue present medications. - Await pathology results. My findings are described in the full procedure note, which is enclosed. If I can be of further assistance, please feel free to contact me at . Sincerely, Manuelito Ricks, 09/30/2024 7:22:10 AM This report has been signed electronically.
--- NOTE | 2024-09-30 07:23 | OP.CCLET_ITS ---
09/30/2024 Lu Riggins [address] [place] [address] Re : Upper GI endoscopy procedure for Susan Wilson Dear Dr. Riggins This procedure was performed on Monday, September 30, 2024. My impressions and recommendations are as follows: Impressions : - Non-severe reflux esophagitis with no bleeding. Biopsied. - Small hiatal hernia. - Erythematous mucosa in the gastric body. Biopsied. - Erythematous duodenopathy. Recommendations : - Discharge patient to home. - Resume previous diet. - Continue present medications. - Await pathology results. My findings are described in the full procedure note, which is enclosed. If I can be of further assistance, please feel free to contact me at . Sincerely, Manuelito Ricks, 09/30/2024 7:22:10 AM This report has been signed electronically.
--- NOTE | 2024-09-30 07:26 | OP.COLON_ITS ---
Patient Name: Susan Wilson Procedure Date: 09/30/2024 6:56 AM Date of : 1965 Age: 59 Procedure: Colonoscopy Indications: Generalized abdominal pain, Change in bowel habits, Change in stool caliber, Constipation, Obstipation Providers: Manuelito Ricks DO Referring MD: Lu Riggins Medicines: Monitored Anesthesia Care Patient Profile: This is a 59 year old female. Refer to note in patient chart for documentation of history and physical. Patient has symptoms of chronic abdominal distention, acute epigastric abdominal pain, chronic dyspepsia, acute heartburn and chronic nausea. Last Colonoscopy: several years ago. Complications: No immediate complications. Procedure: Pre-Anesthesia Assessment: - Prior to the procedure, a History and Physical was performed, and patient medications and allergies were reviewed. The patient is competent. The risks and benefits of the procedure and the sedation options and risks were discussed with the patient. All questions were answered and informed consent was obtained. Patient identification and proposed procedure were verified by the physician in the pre-procedure area. Mental Status Examination: alert and oriented. Airway Examination: normal oropharyngeal airway and neck mobility. Respiratory Examination: clear to auscultation. CV Examination: normal. Prophylactic Antibiotics: The patient does not require prophylactic antibiotics. Prior Anticoagulants: The patient has taken no anticoagulant or antiplatelet agents except for NSAID medication. ASA Grade Assessment: II - A patient with mild systemic disease. After reviewing the risks and benefits, the patient was deemed in satisfactory condition to undergo the procedure. The anesthesia plan was to use monitored anesthesia care (MAC). Immediately prior to administration of medications, the patient was re-assessed for adequacy to receive sedatives. The heart rate, respiratory rate, oxygen saturations, blood pressure, adequacy of pulmonary ventilation, and response to care were monitored throughout the procedure. The physical status of the patient was re-assessed after the procedure. After I obtained informed consent, the scope was passed under direct vision. Throughout the procedure, the patient's blood pressure, pulse, and oxygen saturations were monitored continuously. The colonoscope was introduced through the anus and advanced to the terminal ileum. The colonoscopy was performed without difficulty. The patient tolerated the procedure well. The quality of the bowel preparation was adequate. The terminal ileum, ileocecal valve, appendiceal orifice, and rectum were photographed. Scope In: 7:00:02 AM Scope Withdrawal Time 0 hours 11 minutes 30 seconds Scope Out: 7:15:35 AM Total Procedure Duration Time 0 hours 15 minutes 33 seconds Findings: The perianal and digital rectal examinations were normal. A single medium-sized localized angiodysplastic lesion without bleeding was found in the cecum. Coagulation for bleeding prevention using heater probe was successful. Estimated blood loss was minimal. A few small-mouthed diverticula were found in the recto-sigmoid colon and sigmoid colon. An area of mildly congested mucosa was found in the sigmoid colon. Biopsies were taken with a cold forceps for histology. Verification of patient identification for the specimen was done. Estimated blood loss was minimal. A patchy area of the terminal ileum was congested. Biopsies were taken with a cold forceps for histology. Verification of patient identification for the specimen was done. Estimated blood loss was minimal. Impression: - A single non-bleeding colonic angiodysplastic lesion. Treated with a heater probe. - Diverticulosis in the recto-sigmoid colon and in the sigmoid colon. - Congested mucosa in the sigmoid colon. Biopsied. - Congested mucosa in the terminal ileum. Biopsied. Recommendation: - Discharge patient to home. - Resume previous diet. - Continue present medications. - Await pathology results. - Repeat colonoscopy in 5 years for screening purposes. Procedure Code(s): --- Professional --- 64393, 59, Colonoscopy, flexible; with control of bleeding, any method 82552, Colonoscopy, flexible; with biopsy, single or multiple CPT copyright 2021 [employer]. All rights reserved. The codes documented in this report are preliminary and upon re dye hand review may be revised to meet current compliance requirements. Manuelito Ricks DO 09/30/2024 7:26:00 AM This report has been signed electronically. Number of Addenda: 0 Note Initiated On: 09/30/2024 6:56 AM
--- NOTE | 2024-09-30 07:26 | OP.CCLET_ITS ---
09/30/2024 Lu Riggins [address] [place] [address] Re : Colonoscopy procedure for Susan Wilson Dear Dr. Riggins This procedure was performed on Monday, September 30, 2024. My impressions and recommendations are as follows: Impressions : - A single non-bleeding colonic angiodysplastic lesion. Treated with a heater probe. - Diverticulosis in the recto-sigmoid colon and in the sigmoid colon. - Congested mucosa in the sigmoid colon. Biopsied. - Congested mucosa in the terminal ileum. Biopsied. Recommendations : - Discharge patient to home. - Resume previous diet. - Continue present medications. - Await pathology results. - Repeat colonoscopy in 5 years for screening purposes. My findings are described in the full procedure note, which is enclosed. If I can be of further assistance, please feel free to contact me at . Sincerely, Manuelito Ricks, 09/30/2024 7:26:00 AM This report has been signed electronically.
--- NOTE | 2024-09-30 07:26 | OP.CCLET_ITS ---
09/30/2024 Lu Riggins [address] [place] [address] Re : Colonoscopy procedure for Susan Wilson Dear Dr. Riggins This procedure was performed on Monday, September 30, 2024. My impressions and recommendations are as follows: Impressions : - A single non-bleeding colonic angiodysplastic lesion. Treated with a heater probe. - Diverticulosis in the recto-sigmoid colon and in the sigmoid colon. - Congested mucosa in the sigmoid colon. Biopsied. - Congested mucosa in the terminal ileum. Biopsied. Recommendations : - Discharge patient to home. - Resume previous diet. - Continue present medications. - Await pathology results. - Repeat colonoscopy in 5 years for screening purposes. My findings are described in the full procedure note, which is enclosed. If I can be of further assistance, please feel free to contact me at . Sincerely, Manuelito Ricks, 09/30/2024 7:26:00 AM This report has been signed electronically.
--- NOTE | 2024-09-30 07:26 | OP.COLON_ITS ---
Patient Name: Susan Wilson Procedure Date: 09/30/2024 6:56 AM Date of : 1965 Age: 59 Procedure: Colonoscopy Indications: Generalized abdominal pain, Change in bowel habits, Change in stool caliber, Constipation, Obstipation Providers: Manuelito Ricks DO Referring MD: Lu Riggins Medicines: Monitored Anesthesia Care Patient Profile: This is a 59 year old female. Refer to note in patient chart for documentation of history and physical. Patient has symptoms of chronic abdominal distention, acute epigastric abdominal pain, chronic dyspepsia, acute heartburn and chronic nausea. Last Colonoscopy: several years ago. Complications: No immediate complications. Procedure: Pre-Anesthesia Assessment: - Prior to the procedure, a History and Physical was performed, and patient medications and allergies were reviewed. The patient is competent. The risks and benefits of the procedure and the sedation options and risks were discussed with the patient. All questions were answered and informed consent was obtained. Patient identification and proposed procedure were verified by the physician in the pre-procedure area. Mental Status Examination: alert and oriented. Airway Examination: normal oropharyngeal airway and neck mobility. Respiratory Examination: clear to auscultation. CV Examination: normal. Prophylactic Antibiotics: The patient does not require prophylactic antibiotics. Prior Anticoagulants: The patient has taken no anticoagulant or antiplatelet agents except for NSAID medication. ASA Grade Assessment: II - A patient with mild systemic disease. After reviewing the risks and benefits, the patient was deemed in satisfactory condition to undergo the procedure. The anesthesia plan was to use monitored anesthesia care (MAC). Immediately prior to administration of medications, the patient was re-assessed for adequacy to receive sedatives. The heart rate, respiratory rate, oxygen saturations, blood pressure, adequacy of pulmonary ventilation, and response to care were monitored throughout the procedure. The physical status of the patient was re-assessed after the procedure. After I obtained informed consent, the scope was passed under direct vision. Throughout the procedure, the patient's blood pressure, pulse, and oxygen saturations were monitored continuously. The colonoscope was introduced through the anus and advanced to the terminal ileum. The colonoscopy was performed without difficulty. The patient tolerated the procedure well. The quality of the bowel preparation was adequate. The terminal ileum, ileocecal valve, appendiceal orifice, and rectum were photographed. Scope In: 7:00:02 AM Scope Withdrawal Time 0 hours 11 minutes 30 seconds Scope Out: 7:15:35 AM Total Procedure Duration Time 0 hours 15 minutes 33 seconds Findings: The perianal and digital rectal examinations were normal. A single medium-sized localized angiodysplastic lesion without bleeding was found in the cecum. Coagulation for bleeding prevention using heater probe was successful. Estimated blood loss was minimal. A few small-mouthed diverticula were found in the recto-sigmoid colon and sigmoid colon. An area of mildly congested mucosa was found in the sigmoid colon. Biopsies were taken with a cold forceps for histology. Verification of patient identification for the specimen was done. Estimated blood loss was minimal. A patchy area of the terminal ileum was congested. Biopsies were taken with a cold forceps for histology. Verification of patient identification for the specimen was done. Estimated blood loss was minimal. Impression: - A single non-bleeding colonic angiodysplastic lesion. Treated with a heater probe. - Diverticulosis in the recto-sigmoid colon and in the sigmoid colon. - Congested mucosa in the sigmoid colon. Biopsied. - Congested mucosa in the terminal ileum. Biopsied. Recommendation: - Discharge patient to home. - Resume previous diet. - Continue present medications. - Await pathology results. - Repeat colonoscopy in 5 years for screening purposes. Procedure Code(s): --- Professional --- 59951, 59, Colonoscopy, flexible; with control of bleeding, any method 40016, Colonoscopy, flexible; with biopsy, single or multiple CPT copyright 2021 [employer]. All rights reserved. The codes documented in this report are preliminary and upon bar back review may be revised to meet current compliance requirements. Manuelito Ricks DO 09/30/2024 7:26:00 AM This report has been signed electronically. Number of Addenda: 0 Note Initiated On: 09/30/2024 6:56 AM
--- NOTE | 2024-09-30 07:29 | PCM.POST.ANE ---
Anesthesia: Postop Eval I Current Vital Signs Temperature: 97.4 F Pulse Rate: 67 Blood Pressure: 134/75 Respiratory Rate: 16 Pulse Ox: 98 Oxygen Delivery Method: Room Air Assessment Airway patent: Yes Spontaneous unlabored respirations: Yes Mental status: Awake and Calm nausea: No Vomiting: No Anesthesia Complication: No Fluid Hydration Crystalloid volume administer (ml): 500 Total IV fluid infused: 500 Progress Note Anesthesia document: Postop Eval 1 completed: Yes
--- NOTE | 2024-09-30 10:44 | PCM.POSTANE2 ---
Anesthesia Postop Eval I Sum Postop Eval Completion status Anesthesia document: Postop Eval 1 completed: Yes Anesthesia Postop Eval I Summary Anesthesia Postop Eval I Summary: Anesthesia Postop Eval I: Assessment Summary Airway patent Yes 09/30/24 07:29 [email or web address] Spontaneous unlabored Yes 09/30/24 07:29 [email or web address] respirations Mental status Awake,Calm 09/30/24 07:29 [email or web address] nausea No 09/30/24 07:29 [email or web address] Vomiting No 09/30/24 07:29 [email or web address] Anesthesia Postop Eval I: Fluid Summary Crystalloid volume administer 500 09/30/24 07:29 [email or web address] (ml) Colloids volume administered ( ml) Blood Product volume administered (ml) Total IV fluid infused 500 09/30/24 07:29 [email or web address] Anesthesia Postop Eval I: Summary Notes Anesthesia Complication No 09/30/24 07:29 [email or web address] Anesthesia Complication Comment: Post-operative progress note Anesthesia: Postop Eval II Evaluation Mental status: Awake and Calm Pain Level: 0 nausea: No Vomiting: No Complications Anesthesia Complication: No
== END 2024-09-30 08:05 | disposition home or self-care (01) ==
LOC: EN 05:32 → AC 05:33
PROVIDERS: PCP Internal Medicine; Referring Provider Internal Medicine; Visit Provider Internal Medicine Gastroenterology
PROC: 0DJD8ZZ Inspection of Lower Intestinal Tract, Via Natural or Artificial Opening Endoscopic (ICD-10-PCS; CPT 45378; principal; 2024-09-30 06:25)
DX: K44.9 Diaphragmatic hernia without obstruction or gangrene (principal); K57.30 Diverticulosis of large intestine without perforation or abscess without bleeding; K31.89 Other diseases of stomach and duodenum; K21.00 Gastro-esophageal reflux disease with esophagitis, without bleeding; K63.89 Other specified diseases of intestine; K63.5 Polyp of colon; F32.A Depression, unspecified; Z79.899 Other long term (current) drug therapy; Z87.891 Personal history of nicotine dependence
CPT/HCPCS: 45382; 45380; 44361; 88305; 88342; C1889; J2405